=== PATIENT | female | born 1955 | race Caucasian/White ===

== ENCOUNTER 2020-05-01 13:15 | Outpatient (REF) | payer MEDICARE, MEDICAID, SELFPAY ==
[2020-05-01 14:12] LABS: MANUAL DIFF FLAG NO
[2020-05-01 14:23] LABS: Basophils Percent Auto 0.8 % (0-2); Eosinophils Absolute Auto 0.1 X10*3/uL (0.0-0.4); Eosinophils Percent Auto 1.4 % (0-4); Hematocrit 38.9 % (37-47); Hemoglobin 12.1 g/dl (12.0-16.0); Lymphocytes Absolute Auto 2.1 X10*3/uL (1.2-4.9); Lymphocytes Percent Auto 42.5 % (20-40); Mean Corpuscular HGB Conc 31.1 g/dl (31.0-35.0); Mean Corpuscular Hemoglobin 27.6 pg (27.0-33.0); Mean Corpuscular Volume 88.6 fL (80-98); Mean Platelet Volume 11.2 fL (9.4-12.3); Monocytes Absolute Auto 0.4 X10*3/uL (0.1-1.2); Monocytes Percent Auto 8.7 % (2-11); Neutrophils Absolute Auto 2.3 X10*3/uL (2.0-8.3); Neutrophils Percent Auto 46.6 % (45-73); Platelet Count 195 X10*3/uL (160-400); Red Blood Count 4.39 X10*6/uL (4.20-5.50); Red Cell Distribution Width 14.6 % (11.0-16.0); White Blood Count 4.9 X10*3/uL (4.8-10.8)
[2020-05-01 14:43] LABS: Albumin Level 4.8 g/dL (3.5-5.0); Anion Gap 12 (12-20); Blood Urea Nitrogen 13 mg/dL (9-16); Calcium 9.7 mg/dL (8.4-10.2); Carbon Dioxide 26 mmol/L (22-29); Chloride 103 mmol/L (96-108); Cholesterol 217 mg/dL; Estimated Glomerular Filt Rate > 60; HDL Cholesterol 72 mg/dL; Iron 96 mcg/dL (30-160); LDL Cholesterol Calculated 118 mg/dl; Percent Iron Saturation 29 % (15-50); Phosphorus 2.8 mg/dL (2.7-4.5); Potassium 4.2 mmol/l (3.3-5.1); Sodium 137 mmol/L (135-145); Total Iron Binding Capacity 329 mcg/dL (228-428); Triglycerides 139 mg/dL; Unsaturated Iron Binding 233 ug/dL; Uric Acid 4.9 mg/dL (2.4-5.7)
[2020-05-01 14:46] LABS: Glucose Urine UA NEG (NEG); Leukocyte Esterase Urine TRACE (NEG); Nitrite Urine NEG (NEG); Specific Gravity - Urine >= 1.030 (1.005-1.025); Urine Blood NEG (NEG); Urine Ketones NEG (NEG); Urine Protein NEG (NEG-TRACE)
[2020-05-01 14:54] LABS: Appearance Urine CLEAR; Color Urine YELLOW
[2020-05-01 14:54] LABS: Estimated Average Glucose 123 mg/dL; Hemoglobin A1c % 5.9 %
[2020-05-01 15:06] LABS: Ferritin 74 ng/mL (10-250); Vitamin D 25-OH Total 34.6 ng/mL (>30)
[2020-05-01 15:19] LABS: Mucus Urine 1+ /LPF; RBC Urine 0-2 /HPF (0); Renal Epithelial Cells Urine 1+ /LPF; Squamous Epithelial Cell Urine 1+ /LPF
[2020-05-01 15:20] LABS: Renal w Reflex-LAB USE ONLY Order Verified
[2020-05-01 15:34] LABS: Creatinine Urine 95.56 mg/dL; Microalbum/Creatinine Ratio Ur 19.8 ug/mg cr
[2020-05-01 16:25] LABS: Renal w Reflex Lab Use Only Order verified
[2020-05-03 11:26] LABS: Calcium (PTHI) 9.9 mg/dL (8.6-10.4); PTHI 47 pg/mL (14-64)
== END 2020-05-01 13:16 | disposition home or self-care (01) ==
LOC: HO.LAB 13:15
PROVIDERS: PCP Family Medicine; Visit Provider Internal Medicine Nephrology
DX: E11.22 Type 2 diabetes mellitus with diabetic chronic kidney disease (principal); I12.9 Hypertensive chronic kidney disease with stage 1 through stage 4 chronic kidney disease, or unspecified chronic kidney disease; N18.2 Chronic kidney disease, stage 2 (mild); E55.9 Vitamin D deficiency, unspecified; D64.9 Anemia, unspecified
CPT/HCPCS: 36415; 80051; 80061; 81001; 82040; 82043; 82306; 82310; 82565; 82728; 83036; 83540; 83735; 83970; 84100; 84520; 84550; 85025; 87086

== ENCOUNTER → 2020-06-26 12:37 | Outpatient (BNVA) | payer MEDICARE, MEDICAID, SELFPAY | PROVIDERS: PCP Family Medicine; Referring Provider Family Medicine; Visit Provider Student in an Organized Health Care Education/Training Program | DX: M32.9 Systemic lupus erythematosus, unspecified (principal) | CPT/HCPCS: Q3014 ==

== ENCOUNTER 2020-08-30 14:22 | Outpatient (REF) | payer MEDICARE, MEDICAID, SELFPAY ==
--- NOTE | ~2020-08-30 | MM_ITS ---
EXAMINATION: MM SCREENING DIGITAL BREAST TOMOSYNTHESIS, BILATERAL CLINICAL INFORMATION: Screening. Asymptomatic. The lifetime risk of breast cancer based on the Tyrer-Cuzick Model is 6%. COMPARISON: Mammography: 08/08/2019, 08/03/2018, 07/22/2017 TECHNIQUE: Digital breast tomosynthesis is performed in both the craniocaudal and mediolateral oblique views along with computer-aided detection (CAD). Synthesized 2D images are generated from the tomosynthesis. Additional right MLO view is provided. FINDINGS: The breasts are heterogeneously dense, which may obscure small masses (ACR BI-RADS breast composition Category c). Breast tissue composition borders on average fibroglandular. There are no significant masses, abnormal calcifications, or other abnormalities. There are scattered bilateral benign round and vascular calcifications. The axilla and skin contours are unremarkable. MM/MM tomosynthesis screening BI IMPRESSION: No mammographic evidence of malignancy. ASSESSMENT: BI-RADS 2: Benign RECOMMENDATION: Routine annual mammography screening. This patient's information was entered into a reminder system with a target due date for their next mammogram.
== END 2020-08-30 14:23 | disposition home or self-care (01) ==
LOC: HO.MAMMO 14:22
PROVIDERS: PCP Family Medicine; Visit Provider Family Medicine
DX: Z12.31 Encounter for screening mammogram for malignant neoplasm of breast (principal)
CPT/HCPCS: 77063; 77067

== ENCOUNTER 2020-09-17 10:51 | Outpatient (REF) | payer MEDICARE, MEDICAID, SELFPAY ==
[2020-09-17 11:27] LABS: MANUAL DIFF FLAG NO
[2020-09-17 11:37] LABS: Basophils Percent Auto 0.7 % (0-2); Eosinophils Absolute Auto 0.1 X10*3/uL (0.0-0.4); Eosinophils Percent Auto 0.9 % (0-4); Hematocrit 39.4 % (37-47); Hemoglobin 12.4 g/dl (12.0-16.0); Imm Gran Abs Auto 0.01 X10*3/uL (0.00-0.03); Imm Gran Pct Auto 0.2 % (0.0-0.4); Lymphocytes Absolute Auto 2.3 X10*3/uL (1.2-4.9); Lymphocytes Percent Auto 41.5 % (20-40); Mean Corpuscular HGB Conc 31.5 g/dl (31.0-35.0); Mean Corpuscular Volume 88.9 fL (80-98); Monocytes Absolute Auto 0.6 X10*3/uL (0.1-1.2); Monocytes Percent Auto 9.8 % (2-11); Neutrophils Absolute Auto 2.7 X10*3/uL (2.0-8.3); Neutrophils Percent Auto 46.9 % (45-73); Platelet Count 257 X10*3/uL (160-400); Red Blood Count 4.43 X10*6/uL (4.20-5.50); Red Cell Distribution Width 13.8 % (11.0-16.0); White Blood Count 5.6 X10*3/uL (4.8-10.8)
[2020-09-17 11:49] LABS: Glucose Urine UA NEG (NEG); Leukocyte Esterase Urine NEG (NEG); Nitrite Urine NEG (NEG); Specific Gravity - Urine >= 1.030 (1.005-1.025); Urine Blood NEG (NEG); Urine Ketones 5 MG/DL (NEG); Urine Protein TRACE MG/DL (NEG-TRACE)
[2020-09-17 11:57] LABS: Alanine Aminotransferase 10 U/L (0-31); Albumin Level 4.6 g/dL (3.5-5.0); Alkaline Phosphatase 63 U/L (39-117); Anion Gap 13 (12-20); Aspartate Amino Transferase 14 U/L (5-31); Bilirubin Total 0.6 mg/dL (0.0-1.0); Blood Urea Nitrogen 12 mg/dL (9-16); C Reactive Protein 0.43 mg/dL (< or = 0.50); Calcium 9.8 mg/dL (8.4-10.2); Carbon Dioxide 27 mmol/L (22-29); Chloride 104 mmol/L (96-108); Estimated Glomerular Filt Rate 59; Glucose Random 108 mg/dL (60-115); Sodium 140 mmol/L (135-145); Total Protein 7.8 g/dL (6.5-8.0)
[2020-09-17 12:07] LABS: Appearance Urine HAZY; Color Urine YELLOW
[2020-09-17 12:21] LABS: Erythrocyte Sedimentation Rate 25 MM/HR (0-20)
[2020-09-17 12:25] LABS: Bacteria Urine 1+ /LPF; Mucus Urine 1+ /LPF; RBC Urine 0 /HPF (0); Squamous Epithelial Cell Urine 2+ /LPF; WBC Urine 0-2 /HPF (0-4)
[2020-09-18 13:02] LABS: Anti DNA DS Antibody <1 IU/mL
[2020-09-19 11:26] LABS: Complement C3 135 mg/dL (83-193)
== END 2020-09-17 10:52 | disposition home or self-care (01) ==
LOC: HO.LAB 10:51
PROVIDERS: PCP Family Medicine; Visit Provider Student in an Organized Health Care Education/Training Program
DX: M32.9 Systemic lupus erythematosus, unspecified (principal)
CPT/HCPCS: 36415; 80053; 81001; 85025; 85652; 86140; 86160; 86225

== ENCOUNTER → 2020-09-24 12:37 | Outpatient (BNVA) | payer MEDICARE, MEDICAID, SELFPAY | PROVIDERS: PCP Family Medicine; Visit Provider Student in an Organized Health Care Education/Training Program | DX: M32.9 Systemic lupus erythematosus, unspecified (principal) | CPT/HCPCS: 99212 ==

== ENCOUNTER 2020-12-25 13:36 | Outpatient (REF) | payer MEDICARE, MEDICAID, SELFPAY ==
[2020-12-25 14:29] LABS: MANUAL DIFF FLAG NO
[2020-12-25 14:33] LABS: Basophils Percent Auto 0.7 % (0-2); Eosinophils Percent Auto 0.5 % (0-4); Hematocrit 37.8 % (37-47); Hemoglobin 11.7 g/dl (12.0-16.0); Imm Gran Abs Auto 0.01 X10*3/uL (0.00-0.03); Imm Gran Pct Auto 0.2 % (0.0-0.4); Lymphocytes Absolute Auto 1.9 X10*3/uL (1.2-4.9); Lymphocytes Percent Auto 33.1 % (20-40); Mean Corpuscular Hemoglobin 27.8 pg (27.0-33.0); Mean Corpuscular Volume 89.8 fL (80-98); Mean Platelet Volume 10.9 fL (9.4-12.3); Monocytes Absolute Auto 0.6 X10*3/uL (0.1-1.2); Neutrophils Absolute Auto 3.2 X10*3/uL (2.0-8.3); Neutrophils Percent Auto 55.5 % (45-73); Platelet Count 185 X10*3/uL (160-400); Red Blood Count 4.21 X10*6/uL (4.20-5.50); Red Cell Distribution Width 14.9 % (11.0-16.0); White Blood Count 5.7 X10*3/uL (4.8-10.8)
[2020-12-25 14:35] LABS: Glucose Urine UA NEG (NEG); Leukocyte Esterase Urine NEG (NEG); Nitrite Urine NEG (NEG); Specific Gravity - Urine >= 1.030 (1.005-1.025); Urine Blood NEG (NEG); Urine Ketones 5 MG/DL (NEG); Urine Protein 1+ MG/DL (NEG-TRACE)
[2020-12-25 14:38] LABS: Appearance Urine HAZY; Color Urine YELLOW
[2020-12-25 14:48] LABS: Amorphous Sediment Urine TRACE /LPF; Bacteria Urine TRACE /LPF; Mucus Urine 1+ /LPF; RBC Urine 0-2 /HPF (0); Squamous Epithelial Cell Urine TRACE /LPF; WBC Urine 0-2 /HPF (0-4)
[2020-12-25 14:58] LABS: Alanine Aminotransferase 10 U/L (0-31); Albumin Level 4.4 g/dL (3.5-5.0); Alkaline Phosphatase 50 U/L (39-117); Anion Gap 16 (12-20); Aspartate Amino Transferase 19 U/L (5-31); Bilirubin Total 1.1 mg/dL (0.0-1.0); Blood Urea Nitrogen 15 mg/dL (9-16); Calcium 9.9 mg/dL (8.4-10.2); Carbon Dioxide 23 mmol/L (22-29); Chloride 106 mmol/L (96-108); Estimated Glomerular Filt Rate > 60; Glucose Random 97 mg/dL (60-115); Potassium 4.1 mmol/L (3.3-5.1); Sodium 141 mmol/L (135-145); Total Protein 7.4 g/dL (6.5-8.0)
[2020-12-25 15:09] LABS: Total Protein Urine Random 36 mg/dL (<12)
[2020-12-25 15:13] LABS: Erythrocyte Sedimentation Rate 8 MM/HR (0-20)
[2020-12-26 10:26] LABS: Complement C3 86 mg/dL (83-193)
[2020-12-27 10:02] LABS: Anti DNA DS Antibody <1 IU/mL
== END 2020-12-25 13:37 | disposition home or self-care (01) ==
LOC: HO.LAB 13:36
PROVIDERS: PCP Family Medicine; Visit Provider Student in an Organized Health Care Education/Training Program
DX: M32.9 Systemic lupus erythematosus, unspecified (principal)
CPT/HCPCS: 36415; 80053; 81001; 84156; 85025; 85652; 86140; 86160; 86225

== ENCOUNTER → 2021-09-03 15:01 | Outpatient (BNVA) | payer MEDICARE, MEDICAID, SELFPAY | PROVIDERS: PCP Family Medicine; Visit Provider Internal Medicine | DX: Z13.89 Encounter for screening for other disorder (principal) ==

== ENCOUNTER 2021-09-10 14:23 | Outpatient (REF) | payer MEDICARE, MEDICAID, SELFPAY ==
--- NOTE | ~2021-09-10 | MM_ITS ---
EXAMINATION: MM SCREENING DIGITAL BREAST TOMOSYNTHESIS, BILATERAL CLINICAL INFORMATION: Screening. Asymptomatic. The lifetime risk of breast cancer based on the Tyrer-Cuzick Model is 4%. COMPARISON: Mammography: 08/30/2020, 08/08/2019, 08/03/2018 TECHNIQUE: Digital breast tomosynthesis is performed in both the craniocaudal and mediolateral oblique views along with computer-aided detection (CAD). Synthesized 2D images are generated from the tomosynthesis. FINDINGS: The breasts are heterogeneously dense, which may obscure small masses (ACR BI-RADS breast composition Category c). There are no significant masses, abnormal calcifications, or other abnormalities. Parenchymal pattern is similar to prior studies. MM/MM tomosynthesis screening BI IMPRESSION: No mammographic evidence of malignancy. ASSESSMENT: BI-RADS 1: Negative RECOMMENDATION: Routine annual mammography screening. This patient's information was entered into a reminder system with a target due date for their next mammogram.
== END 2021-09-10 14:24 | disposition home or self-care (01) ==
LOC: HO.MAMMO 14:23
PROVIDERS: Visit Provider Family Medicine
DX: Z12.31 Encounter for screening mammogram for malignant neoplasm of breast (principal)
CPT/HCPCS: 77063; 77067

== ENCOUNTER 2022-03-20 06:56 | Day surgery (SDC) | payer MEDICARE, MEDICAID, SELFPAY ==
[2022-03-16 13:58] VITALS: BMI 24.1
--- NOTE | 2022-03-19 14:06 | HO.ANESPROP2 ---
Documented by User: Sandra Barrett NP 03/19/22 14:07 HPI - Anesthesia Eval Consult details Narrative: 66yo F for Colonoscopy PMFSH Active Problems Active Problems: All Active Problems (Updated 03/16/22 @ 13:56 by Kathryn Best RN) Lupus (systemic lupus erythematosus) (Acute) Past Medical History Medical History Anal cancer Asthma Colon polyps Diverticulosis HTN (hypertension) IBS (irritable bowel syndrome) Lupus (systemic lupus erythematosus) Osteoporosis Raynauds disease Vitamin D deficiency Family History Family History Mother HTN (hypertension) Osteoporosis Surgical History Surgical History H/O abdominoplasty History of appendectomy History of dilatation and curettage Hx of hysterectomy Social History Social History Alcohol intake: current Alcohol intake frequency: former alcohol drinker Patient Tobacco Use Status: Never used Tobacco Use of substances other than those prescribed or required for medical reasons: No Are you DNR?: No Advance Directives: No Advance Directives Information Provided: Yes Meds Allergies Allergy/AdvReac Type Severity Reaction Status Date / Time aspirin [ASPIRIN] Allergy Severe GI BLEED, Verified 09/03/21 15:09 severe bleeding NSAIDS (Non-Steroidal Allergy Severe GI BLEED Verified 09/03/21 15:09 Anti-Inflamma [NSAIDS (NON-STEROIDAL ANTI-INFLAMMA] simvastatin [Simvastatin] Allergy Severe SEVERE Verified 09/03/21 15:09 DIARRHEA/RECTAL BLEED/MUSCLE PAIN, upset stomach and pain lisinopril [Lisinopril] AdvReac Mild COUGH, Verified 03/16/22 13:59 throat scratching metoprolol [From Toprol XL] AdvReac Mild COUGHING Verified 09/03/21 15:09 any blood thinners Allergy Severe severe Uncoded 03/16/22 13:59 bleeding Home Medications Medication Instructions Recorded Confirmed Last Taken Type acetaminophen 325 mg capsule 650 mg PO Q6H PRN Pain 06/26/20 03/16/22 Unknown History (Tylenol) albuterol sulfate 90 mcg/actuation 2 puff inhalation Q6H PRN Wheezing 06/26/20 03/16/22 Unknown History aerosol inhaler alendronate 70 mg tablet (Fosamax) 70 mg PO QWEEK 06/26/20 03/16/22 Unknown History amlodipine 2.5 mg tablet (Norvasc) 2.5 mg PO DAILY 06/26/20 03/16/22 03/20/22 History docusate sodium 100 mg capsule 100 mg PO DAILY 06/26/20 03/16/22 Unknown History (Colace) losartan 25 mg tablet 25 mg PO DAILY 06/26/20 03/16/22 03/20/22 History omeprazole 20 mg capsule,delayed 20 mg PO DAILY 06/26/20 03/16/22 Unknown History release oxycodone-acetaminophen 5 mg-325 1 tab PO Q8H PRN Pain 06/26/20 03/16/22 Unknown History mg tablet (Percocet) pravastatin 20 mg tablet 20 mg PO DAILY 06/26/20 03/16/22 Unknown History trazodone 100 mg tablet 100 mg PO BEDTIME PRN Insomnia 06/26/20 03/16/22 Unknown History Exam Exam Date and Time: March 19, 2022 1406 Height,Weight and Vital Signs: Height 5 ft 1 in Weight 58.06 kg Assessment and Plan Assessment Anesthesia Assessment: Chart Reviewed Documented by User: Nikita Duong MD 03/20/22 08:03 [facility] Past Medical History Medical History Anal cancer Asthma Colon polyps Diverticulosis HTN (hypertension) IBS (irritable bowel syndrome) Lupus (systemic lupus erythematosus) Osteoporosis Raynauds disease Vitamin D deficiency Family History Family History Mother HTN (hypertension) Osteoporosis Family history of problems with anesthesia: No Surgical History Surgical History H/O abdominoplasty History of appendectomy History of dilatation and curettage Hx of hysterectomy History of Problems with Anesthesia: No Social History Social History Alcohol intake: current Alcohol intake frequency: former alcohol drinker Patient Tobacco Use Status: Never used Tobacco Use of substances other than those prescribed or required for medical reasons: No Are you DNR?: No Advance Directives: No Advance Directives Information Provided: Yes Meds Allergies Allergy/AdvReac Type Severity Reaction Status Date / Time aspirin [ASPIRIN] Allergy Severe GI BLEED, Verified 09/03/21 15:09 severe bleeding NSAIDS (Non-Steroidal Allergy Severe GI BLEED Verified 09/03/21 15:09 Anti-Inflamma [NSAIDS (NON-STEROIDAL ANTI-INFLAMMA] simvastatin [Simvastatin] Allergy Severe SEVERE Verified 09/03/21 15:09 DIARRHEA/RECTAL BLEED/MUSCLE PAIN, upset stomach and pain lisinopril [Lisinopril] AdvReac Mild COUGH, Verified 03/16/22 13:59 throat scratching metoprolol [From Toprol XL] AdvReac Mild COUGHING Verified 09/03/21 15:09 any blood thinners Allergy Severe severe Uncoded 03/16/22 13:59 bleeding Home Medications Medication Instructions Recorded Confirmed Last Taken Type acetaminophen 325 mg capsule 650 mg PO Q6H PRN Pain 06/26/20 03/16/22 Unknown History (Tylenol) albuterol sulfate 90 mcg/actuation 2 puff inhalation Q6H PRN Wheezing 06/26/20 03/16/22 Unknown History aerosol inhaler alendronate 70 mg tablet (Fosamax) 70 mg PO QWEEK 06/26/20 03/16/22 Unknown History amlodipine 2.5 mg tablet (Norvasc) 2.5 mg PO DAILY 06/26/20 03/16/22 03/20/22 History docusate sodium 100 mg capsule 100 mg PO DAILY 06/26/20 03/16/22 Unknown History (Colace) losartan 25 mg tablet 25 mg PO DAILY 06/26/20 03/16/22 03/20/22 History omeprazole 20 mg capsule,delayed 20 mg PO DAILY 06/26/20 03/16/22 Unknown History release oxycodone-acetaminophen 5 mg-325 1 tab PO Q8H PRN Pain 06/26/20 03/16/22 Unknown History mg tablet (Percocet) pravastatin 20 mg tablet 20 mg PO DAILY 06/26/20 03/16/22 Unknown History trazodone 100 mg tablet 100 mg PO BEDTIME PRN Insomnia 06/26/20 03/16/22 Unknown History Exam Airway Mallampati Class: II TM Dist: >3cm Neck ROM: Full Loose/Missing/Broken Teeth: Yes (upper front teeth chipped) Heart: rrr+[id number] Lungs: cta b/l Assessment and Plan Assessment Anesthesia Assessment: Anesthesia Plan Discussed Final Anesthetic Review Family History of Problems with Anesthesia: No History of Problems with Anesthesia: No NPO: Yes ASA Class: III Final Preanesthetic Review: No Changes in Pt Med Stat, Meds/Allgs Chart Reviewed, Consent Obtained/Reviewed and Anes Risks/Benef Reviewed Patient Risk: Intermediate Procedure Risk: Intermediate Assessment/Block/Sedation in SS: Assess/Block/Sedation-SS Anesthetic Plan Anesthetic Plan: MAC: and Agree w/ Assess. and Plan Disposition: Standard PACU
[2022-03-20 07:22] VITALS: BMI 25.4
[2022-03-20 07:43] VITALS: BP 100/69; PULSE 85; RESP 16; TEMP 36.3; O2SAT 97
[2022-03-20] MEDS: Lactated Ringers 1,000 ML 100 ML IVCONT (07:55)
--- NOTE | 2022-03-20 08:12 | MHC.SHP ---
Pre-Procedural Eval Section A Date of Service: 03/20/22 Section B Chief Complaint: screening Details of Present Illness: see H*P no changes Relevant Family History (Specify if Yes): No Relevant Social History: None Present Medications: see Short Stay Collaborative assessment Medical History: No relevant PMH History of Previous Operations: No relevant previous surgery Allergies: Allergies Allergy/AdvReac Type Severity Reaction Status Date / Time aspirin [ASPIRIN] Allergy Severe GI BLEED, Verified 09/03/21 15:09 severe bleeding NSAIDS (Non-Steroidal Allergy Severe GI BLEED Verified 09/03/21 15:09 Anti-Inflamma [NSAIDS (NON-STEROIDAL ANTI-INFLAMMA] simvastatin [Simvastatin] Allergy Severe SEVERE Verified 09/03/21 15:09 DIARRHEA/RECTAL BLEED/MUSCLE PAIN, upset stomach and pain lisinopril [Lisinopril] AdvReac Mild COUGH, Verified 03/16/22 13:59 throat scratching metoprolol [From Toprol XL] AdvReac Mild COUGHING Verified 09/03/21 15:09 any blood thinners Allergy Severe severe Uncoded 03/16/22 13:59 bleeding Review of Systems Sugical H&P ROS: Negative: Constitution, Cardiovascular, Respiratory, Neurological, Psychiatric, Hem-Onc, Allergic/Immunologic, Gastrointestinal, Genitourinary, Musculoskeletal, Integumentary, Endocrine and Eyes/Ears/Nose/Throat Exam Surgical H&P Exam: Normal: HEENT, Normal: Heart, Normal: Lungs, Normal: Extremities, Normal: Abdomen, Normal: Skin and Normal: Neurological Plan Diagnosis/Plan: Unchanged I have reviewed the history and physical and performed a pertinent physical examination on my patient. No changes have occurred unless specified.
[2022-03-20 09:03] VITALS: BP 93/57; PULSE 75; RESP 18; TEMP 36.6; O2SAT 96
--- NOTE | 2022-03-20 09:04 | PM.OP ---
Brief Operative Note Date of Service: 03/20/22 Pre-op diagnosis: screening Post-op diagnosis: same Procedure: colonoscopy Surgeon: Vasyl Boles Anesthesia: MAC Was an Finishing Manager used for this Procedure?: No Estimated blood loss (mL): 2 Pathology: other Condition: stable Disposition: PACU
[2022-03-20 09:18] VITALS: BP 107/75; PULSE 76; RESP 18; TEMP 36.6; O2SAT 97
--- NOTE | 2022-03-20 22:50 | OP_ITS ---
SURGEON: Vasyl Boles MD INDICATIONS: Colon cancer screening. PREOPERATIVE DIAGNOSIS: POSTOPERATIVE DIAGNOSIS: PROCEDURE PERFORMED: Colonoscopy to the terminal ileum with biopsy and snare polypectomy. ESTIMATED BLOOD LOSS: COMPLICATIONS: ANESTHESIA: Monitored anesthesia care. ASSISTANTS: SPECIMENS: DESCRIPTION OF PROCEDURE: DATE: 03/20/22 History and physical was performed. The risks and benefits of the procedure were explained to the patient. Informed consent was obtained. The patient was placed in left lateral decubitus position. The digital rectal exam was performed and was found to be normal. The Olympus pediatric video colonoscope was introduced into the rectum and advanced to the cecum without difficulty. The cecum was identified by transillumination, palpation, and identification of ileocecal valve. Examination was performed. The scope was removed. She tolerated the procedure well and was taken to recovery area in stable condition. FINDINGS: The terminal ileum was normal. The visualized colonic mucosa was normal. Quality of the prep was good. Multiple polyps were removed with a combination of biopsy forceps and cold snare. These were located in the cecum 80 cm x2, 55 cm, 25 cm, and a rectal polyps x2. All were less than 10 mm. There were radiation changes on the perianal and perineal areas from her previous radiation therapy for anal cancer. The rectum was somewhat slack because of this. No lesions were identified that suggest a recurrence of squamous cell carcinoma of the perineum. Retroflexed examination was not possible due to narrowing in the rectum from prior radiation. IMPRESSION: 1. Colon polyps. 2. 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 RECOMMENDATION: 1. Follow up the biopsy results. MD KYLAH Morales/RAJIV / [id number] MTDD
== END 2022-03-20 09:36 | disposition home or self-care (01) ==
PROVIDERS: PCP Family Medicine; Visit Provider Internal Medicine Gastroenterology
PROC: 0DJD8ZZ Inspection of Lower Intestinal Tract, Via Natural or Artificial Opening Endoscopic (ICD-10-PCS; CPT 45378; principal; 2022-03-20 08:10)
DX: Z12.11 Encounter for screening for malignant neoplasm of colon (principal); Z85.048 Personal history of other malignant neoplasm of rectum, rectosigmoid junction, and anus; K62.7 Radiation proctitis; Z92.3 Personal history of irradiation; Z92.21 Personal history of antineoplastic chemotherapy; D12.0 Benign neoplasm of cecum; D12.4 Benign neoplasm of descending colon; D12.5 Benign neoplasm of sigmoid colon; D12.8 Benign neoplasm of rectum; K21.9 Gastro-esophageal reflux disease without esophagitis; I10 Essential (primary) hypertension; J45.20 Mild intermittent asthma, uncomplicated; M81.0 Age-related osteoporosis without current pathological fracture; M32.9 Systemic lupus erythematosus, unspecified; I73.00 Raynaud's syndrome without gangrene; Z79.899 Other long term (current) drug therapy; Z88.8 Allergy status to other drugs, medicaments and biological substances
CPT/HCPCS: 45385; 45380; 88305

== ENCOUNTER 2022-04-29 10:58 | Outpatient (REF) | payer MEDICARE, MEDICAID, SELFPAY ==
[2022-04-29 12:38] LABS: Cortisol Random 9.1 ug/dL
[2022-05-04 17:41] LABS: Adrenocorticotropic Hormone 14 pg/mL (6-50)
== END 2022-04-29 10:59 | disposition home or self-care (01) ==
LOC: HO.LAB 10:58
PROVIDERS: PCP Family Medicine; Visit Provider Physical Medicine & Rehabilitation
DX: M54.16 Radiculopathy, lumbar region (principal)
CPT/HCPCS: 36415; 82024; 82533

== ENCOUNTER 2022-09-16 13:57 | Outpatient (REF) | payer MEDICARE, MEDICAID, SELFPAY ==
--- NOTE | ~2022-09-16 | MM_ITS ---
EXAMINATION: MM SCREENING DIGITAL BREAST TOMOSYNTHESIS, BILATERAL CLINICAL INFORMATION: Screening. Asymptomatic. The lifetime risk of breast cancer based on the Tyrer-Cuzick Model is 6.7%. COMPARISON: Mammography: September 10, 2021 and studies dating back to June 09, 2016 TECHNIQUE: Digital breast tomosynthesis is performed in both the craniocaudal and mediolateral oblique views along with computer-aided detection (CAD). Synthesized 2D images are generated from the tomosynthesis. FINDINGS: The breasts are heterogeneously dense, which may obscure small masses (ACR BI-RADS breast composition Category c). There are no significant masses, abnormal calcifications, or other abnormalities. MM/MM tomosynthesis screening BI IMPRESSION: No significant changes ASSESSMENT: BI-RADS 1: Negative RECOMMENDATION: Routine annual mammography screening. This patient's information was entered into a reminder system with a target due date for their next mammogram.
== END 2022-09-16 13:58 | disposition home or self-care (01) ==
LOC: HO.MAMMO 13:57
PROVIDERS: PCP Family Medicine; Visit Provider Family Medicine
DX: Z12.31 Encounter for screening mammogram for malignant neoplasm of breast (principal)
CPT/HCPCS: 77063; 77067

== ENCOUNTER 2023-05-12 11:50 | Outpatient (REF) | payer MEDICARE, MEDICAID, SELFPAY ==
[2023-05-12 13:24] LABS: MANUAL DIFF FLAG NO
[2023-05-12 13:39] LABS: Basophils Absolute Auto 0.1 X10*3/uL (0.0-0.2); Basophils Percent Auto 0.9 % (0-2); Eosinophils Absolute Auto 0.1 X10*3/uL (0.0-0.4); Eosinophils Percent Auto 0.7 % (0-4); Hematocrit 39.4 % (37.0-47.0); Hemoglobin 12.2 g/dl (12.0-16.0); Imm Gran Abs Auto 0.02 X10*3/uL (0.00-0.03); Imm Gran Pct Auto 0.3 % (0.0-0.4); Lymphocytes Absolute Auto 2.4 X10*3/uL (1.2-4.9); Lymphocytes Percent Auto 33.6 % (20-40); Mean Corpuscular Hemoglobin 27.1 pg (27.0-33.0); Mean Corpuscular Volume 87.6 fL (80.0-98.0); Mean Platelet Volume 11.3 fL (9.4-12.3); Monocytes Absolute Auto 0.7 X10*3/uL (0.1-1.2); Monocytes Percent Auto 9.4 % (2-11); Neutrophils Absolute Auto 3.9 x10*3/uL (2.0-8.3); Neutrophils Percent Auto 55.1 % (45-73); Platelet Count 214 X10*3/uL (160-400); Red Cell Distribution Width 14.1 % (11.0-16.0)
[2023-05-12 14:10] LABS: Alanine Aminotransferase 8 U/L (0-31); Albumin Level 4.4 g/dL (3.5-5.0); Alkaline Phosphatase 50 U/L (39-117); Anion Gap 13 (12-20); Aspartate Amino Transferase 14 U/L (5-31); Bilirubin Direct 0.3 mg/dL (0.0-0.5); Bilirubin Total 0.9 mg/dL (0.0-1.0); Blood Urea Nitrogen 9 mg/dL (9-16); Calcium 9.9 mg/dL (8.4-10.2); Carbon Dioxide 26 mmol/L (22-29); Chloride 103 mmol/L (96-108); Estimated Glomerular Filt Rate > 60; Glucose Random 93 mg/dL (60-115); Potassium 3.9 mmol/L (3.3-5.1); Sodium 138 mmol/L (135-145); Total Protein 7.8 g/dL (6.5-8.0)
[2023-05-12 14:17] LABS: Microalbum/Creatinine Ratio Ur 28.4 ug/mg cr (<30)
[2023-05-13 19:08] LABS: Hepatitis B Viral DNA Qn - cp 1.59 Log IU/mL (NOT DETECTED); Hepatitis B Viral DNA Qn-IU/mL 39 IU/mL (NOT DETECTED)
== END 2023-05-12 11:51 | disposition home or self-care (01) ==
LOC: HO.HHCL 11:50
PROVIDERS: Visit Provider Family Medicine
DX: B18.1 Chronic viral hepatitis B without delta-agent (principal)
CPT/HCPCS: 36415; 80048; 80076; 82043; 82570; 85025; 87517

== ENCOUNTER 2023-08-24 16:07 | Outpatient (REF) | payer MEDICARE, MEDICAID, SELFPAY ==
[2023-08-30 09:00] LABS: Alphahydroxymidazolam,GCMS Ur NEGATIVE; Alphahydroxytriazolam, GCMS Ur NEGATIVE; Alprazolam, GCMS Urine NEGATIVE; Aminoclonazepam, GCMS Urine NEGATIVE; Flurazepam Metabolite,GCMS Ur NEGATIVE; Lorazepam GCMS Urine NEGATIVE; Nordiazepam, GCMS Urine NEGATIVE; Oxazepam, GCMS Urine NEGATIVE; Temazepam, GCMS Urine NEGATIVE
[2023-08-30 09:01] LABS: Fentanyl, Ur NEGATIVE; Norfentanyl, Ur NEGATIVE
== END 2023-08-24 16:08 | disposition home or self-care (01) ==
LOC: HO.HHCLNP 16:07
PROVIDERS: Visit Provider Registered Nurse
DX: M54.50 Low back pain, unspecified (principal); G89.29 Other chronic pain
CPT/HCPCS: 80346; 80354

== ENCOUNTER 2023-09-22 12:56 | Outpatient (REF) | payer MEDICARE, MEDICAID, SELFPAY | END 2023-09-22 12:57 | disposition home or self-care (01) | LOC: HO.MAMMO 12:56 | PROVIDERS: PCP Family Medicine; Visit Provider Family Medicine | DX: Z12.31 Encounter for screening mammogram for malignant neoplasm of breast (principal) | CPT/HCPCS: 77063; 77067 ==

== ENCOUNTER → 2023-09-22 15:00 | Outpatient (BNV) | payer MEDICARE, MEDICAID, SELFPAY | PROVIDERS: PCP Family Medicine; Visit Provider Radiology Diagnostic Radiology | DX: Z12.31 Encounter for screening mammogram for malignant neoplasm of breast (principal) | CPT/HCPCS: 77063; 77067 ==

== ENCOUNTER 2024-01-04 13:15 | Outpatient (REF) | payer MEDICARE, MEDICAID, SELFPAY ==
[2024-01-07 08:48] LABS: Fentanyl, Ur NEGATIVE; Norfentanyl, Ur NEGATIVE
[2024-01-07 08:49] LABS: Alphahydroxymidazolam,GCMS Ur NEGATIVE; Alphahydroxytriazolam, GCMS Ur NEGATIVE; Alprazolam, GCMS Urine NEGATIVE; Aminoclonazepam, GCMS Urine NEGATIVE; Flurazepam Metabolite,GCMS Ur NEGATIVE; Lorazepam GCMS Urine NEGATIVE; Nordiazepam, GCMS Urine NEGATIVE; Oxazepam, GCMS Urine NEGATIVE; Temazepam, GCMS Urine NEGATIVE
== END 2024-01-04 13:16 | disposition home or self-care (01) ==
LOC: HO.HHCLNP 13:15
PROVIDERS: Visit Provider Registered Nurse
DX: M54.50 Low back pain, unspecified (principal); G89.29 Other chronic pain
CPT/HCPCS: 80346; 80354

== ENCOUNTER 2024-04-14 13:00 | Outpatient (RCR) | payer MEDICARE, MEDICAID, SELFPAY ==
[2024-03-10 13:00] VITALS: BP 117/63; PULSE 82
[2024-04-07 10:27] LABS: Fentanyl, Ur NEGATIVE; Norfentanyl, Ur NEGATIVE
== END 2024-04-17 10:33 | disposition home or self-care (01) ==
LOC: HO.PT 13:00
PROVIDERS: Registered Nurse; PCP Family Medicine; Visit Provider Physical Medicine & Rehabilitation
DX: M48.07 Spinal stenosis, lumbosacral region (principal)
CPT/HCPCS: 80354; 97110; 97112; 97161

== ENCOUNTER 2024-04-26 09:24 | Outpatient (REF) | payer MEDICARE, MEDICAID, SELFPAY ==
[2024-04-26 10:03] LABS: MANUAL DIFF FLAG NO
[2024-04-26 10:39] LABS: Basophils Absolute Auto 0.1 X10*3/uL (0.0-0.2); Basophils Percent Auto 0.9 % (0-2); Eosinophils Absolute Auto 0.1 X10*3/uL (0.0-0.4); Hematocrit 37.5 % (37.0-47.0); Hemoglobin 11.8 g/dl (12.0-16.0); Imm Gran Abs Auto 0.01 X10*3/uL (0.00-0.03); Imm Gran Pct Auto 0.2 % (0.0-0.4); Lymphocytes Absolute Auto 1.8 X10*3/uL (1.2-4.9); Lymphocytes Percent Auto 32.2 % (20-40); Mean Corpuscular HGB Conc 31.5 g/dl (31.0-35.0); Mean Corpuscular Hemoglobin 26.8 pg (27.0-33.0); Mean Corpuscular Volume 85.2 fL (80.0-98.0); Mean Platelet Volume 11.4 fL (9.4-12.3); Monocytes Absolute Auto 0.5 X10*3/uL (0.1-1.2); Monocytes Percent Auto 8.8 % (2-11); Neutrophils Absolute Auto 3.1 x10*3/uL (2.0-8.3); Neutrophils Percent Auto 55.9 % (45-73); Platelet Count 217 X10*3/uL (160-400); Red Cell Distribution Width 14.2 % (11.0-16.0); White Blood Count 5.5 X10*3/uL (4.8-10.8)
[2024-04-26 11:47] LABS: Alanine Aminotransferase 8 U/L (0-31); Albumin Level 4.4 g/dL (3.5-5.0); Alkaline Phosphatase 59 U/L (39-117); Anion Gap 14 (12-20); Aspartate Amino Transferase 20 U/L (5-31); Bilirubin Direct 0.3 mg/dL (0.0-0.5); Bilirubin Total 0.8 mg/dL (0.0-1.0); Blood Urea Nitrogen 12 mg/dL (9-16); Calcium 9.5 mg/dL (8.4-10.2); Carbon Dioxide 26 mmol/L (22-29); Chloride 106 mmol/L (96-108); Cholesterol 173 mg/dL (<200); Estimated Glomerular Filt Rate 60; Glucose Random 101 mg/dL (60-115); HDL Cholesterol 66 mg/dL (>40); LDL Cholesterol Calculated 84 mg/dL (<100); Potassium 3.7 mmol/L (3.3-5.1); Sodium 142 mmol/L (135-145); Total Protein 7.5 g/dL (6.5-8.0); Triglycerides 118 mg/dL (<150)
[2024-04-26 11:52] LABS: TSH reflex Free T4 1.72 uIU/mL (0.32-4.0); Vitamin D 25-OH Total 35.8 ng/mL (>30)
[2024-04-27 14:09] LABS: Hepatitis B Viral DNA Qn - cp 1.97 Log IU/mL (NOT DETECTED); Hepatitis B Viral DNA Qn-IU/mL 93 IU/mL (NOT DETECTED)
[2024-04-28 12:48] LABS: Alpha Fetoprotein 6.3 ng/mL
== END 2024-04-26 09:25 | disposition home or self-care (01) ==
LOC: HO.LAB 09:24
PROVIDERS: PCP Family Medicine; Visit Provider Family Medicine
DX: I10 Essential (primary) hypertension (principal); E03.9 Hypothyroidism, unspecified; B18.1 Chronic viral hepatitis B without delta-agent; E55.9 Vitamin D deficiency, unspecified; E78.5 Hyperlipidemia, unspecified
CPT/HCPCS: 36415; 80048; 80061; 80076; 82105; 82306; 84443; 85025; 87517

== ENCOUNTER 2024-07-11 11:30 | Outpatient (REF) | payer MEDICARE, MEDICAID, SELFPAY ==
--- OUTSIDE RECORDS SUMMARY | 2024-07-11 16:36 | XMS_ITS | Encounter Summary ---
Author Organization [facility] Address [address] [place] [address] 7 [place] [address] Care Team Providers Care Hair Weaver Name Role Phone Bharati Soriano MD Primary Care Provider [phone] Vasyl Boles MD Unavailable Encounter Details Date Type Department Care Team (Latest Contact Info) Description 06/29/2018 Abstract [facility] CONVERSIONS Dental, Provider, DDS Social History Tobacco Use Types Packs/Day Years Used Date Smoking Tobacco: Never Assessed Comments Unknown Sex and Gender Information Value Date Recorded Sex Assigned at Female 04/13/2022 10:14 AM EDT Legal Sex Female 10:14 AM EDT Gender Identity Female 04/13/2022 10:14 AM EDT Sexual Orientation Straight 04/13/2022 10 :14 AM EDT documented as of this encounter Plan of Treatment Upcoming Encounters Date Type Department Care Team (Late st Contact Info) Description 07/12/2024 2:45 PM EST Office Visit [facility] [address] [place] [phone] Bharati Soriano MD [address] [place] [address] 09/07/2024 1:00 PM EDT Office Visit [facility] ADULT DENTAL [address] [place] [address] Elo Mahoney [address] [place] [address] 09/19/2024 11:00 AM EDT Office Visit [facility] [address] [place] [phone] documented as of this encounter Visit Diagnoses Not on filedocumented in this encounter Care Teams Hair Weaver Relationship Specialty Start Date End Date Bharati Soriano MD [address] [place] [address] [place] [address] PCP - General Family Medicine 06/14/18 Vasyl Boles MD [address] [place] [address] [address] [place] [phone] Gastroenterology 06/20/24 documented as of this encounter
--- OUTSIDE RECORDS SUMMARY | 2024-07-11 16:36 | XMS_ITS | Encounter Summary ---
Author Organization [employer] Address [address] [facility] 7t [place] [address] Care Team Providers Care Ferry Operator Name Role Phone Bharati Soriano MD Primary Care Provider [phone]- [phone] Vasyl Boles MD Unavailable [phone] Reason for Visit * Reason Onset Date Comments Med Refill 07/04/2024 Encounter Details Date Type Department Care Team (Late st Contact Info) Description 07/04/2024 Refill [facility] [address] [place], [place] [phone] Bharati Soriano MD [address] [place], [place] [phone] Pain Social History Tobacco Use Types Packs/Day Years Used Date Smoking Tobacco: Never Passive Smoke Exposure: Never Smokeless Tobacco: Never Depression Answer Date Recorded Patient Health Questionnaire-9 Score 1 01/14/2024 Patient Health Questionnaire-9 Score 1 01/14/2024 Last PHQ-9: Questionnaire Data Not on file 0 01/14/2024 Housing Stability Answer Date Recorded What is your housing situation today? I have anita jaclyn 12/22/[address] you li ve. Do you have problems with any of the following? None of the above 12/22/2023 Food Insecurity Answer Date Recorded Within the past 12 months, y ou worried that your food would run out before you got money to buy more: Never True 12/22/2023 Within the past 12 months,th e food you bought just didn't last and you didn't have enough money to get more: Never True 03/2024 Transportation Answer Date Recorded In the past 12 months, has l ack of transportation kept you from medical appts, meetings, work or from getting things needed for daily living? No 12/22/2023 Utilities Answer Date Recorded In the past 12 months, has t he electric, gas, oil or water company threatened to shut off services in your home? No 12/22/2023 Depression Answer Date Recorded Patient Health Questionnaire-2 Score 1 01/14/2024 Internet Access Answer Date Recorded Internet Access Q1 Yes 06/30/2024 Internet Access Q2 I do not want or need it 06/14 Comments Unknown Sex and Gender Information Value Date Recorded Sex Assigned at Female 04/13/2022 10:14 AM EDT Legal Sex Female 10:14 AM EDT Gender Identity Female 04/13/2022 10:14 AM EDT Sexual Orientation Straight 04/13/2022 10 :14 AM EDT documented as of this encounter Miscellaneous Notes * Telephone Encounter - Hetal Diaz RN - 07/04/2024 2:35 PM EST HEALTHCARE PROF checked. Pt last picked up 21 day supply of percocet 06/02/24. Soonest fill date 06/23/24. Has appt with PM provider in [facility] 07/11/24. Refill appropriate. Queued. * Telephone Encounter - Kelechi Loyd - 07/04/2024 8:43 AM EST TC from pt requesting medication refill. Medications needing refill: oxyCODONE-acetaminophen (Percocet) 5-325 MG tablet To be sent to: [facility]/pharmacy [address] [place] [address] documented in this encounter Plan of Treatment Upcoming Encounters Date Type Department Care Team (Late st Contact Info) Description 07/12/2024 2:45 PM EST Office Visit [facility] [address] [place] [address] Bharati Soriano MD [address] [place], [place] [phone] 09/07/2024 1:00 PM EDT Office Visit [facility] [address] [place] [address] Al Mahoneyaris [address] [place] [address] 09/19/2024 11:00 AM EDT Office Visit [facility] [address] [place] [address] documented as of this encounter Visit Diagnoses Diagnosis Pain Generalized pain Other forms of systemic lupus erythematosus, unspecified organ involvement status (CMS/HCC) Chronic type B viral hepatitis (CMS/HCC) Viral hepatitis B without mention of hepatic coma, chronic, without mention of hepatitis delta Dietary counseling Dietary surveillance and counseling Exercise counseling documented in this encounter Additional Health Concerns Assessment Noted Time PHQ-9 Depression Total Score: 1 01/14/20 24 10:00 AM EDT documented as of this encounter Care Teams Ferry Operator Relationship Specialty Start Date End Date Bharati Soriano MD [address] [place] [address] PCP - General Family Medicine 06/14/18 Vasyl Boles MD [address] [place] [address] DR KENT [address] [place] [phone] Gastroenterology 06/20/24 documented as of this encounter
--- OUTSIDE RECORDS SUMMARY | 2024-07-11 16:36 | XMS_ITS | Encounter Summary ---
Author Organization [employer] Address [address] [facility] 7t [place] [address] Care Team Providers Care Tableau Architect Name Role Phone Bharati Soriano MD Primary Care Provider [phone]- [phone] Vasyl Boles MD Unavailable [phone] Encounter Details Date Type Department Care Team ([facility] st Contact Info) Description 07/11/2024 Telephone [facility] [address] [place] [address] Jocelyn Randall, JÚNIOR [address] [place] [address] Social History Tobacco Use Types Packs/Day Years Used Date Smoking Tobacco: Never Passive Smoke Exposure: Never Smokeless Tobacco: Never Depression Answer Date Recorded Patient Health Questionnaire-9 Score 1 01/14/2024 Patient Health Questionnaire-9 Score 1 01/14/2024 Last PHQ-9: Questionnaire Data Not on file 0 01/14/2024 Housing Stability Answer Date Recorded What is your housing situation today? I have anita anaya 12/22/[address] you li [...] encounter Miscellaneous Notes * Telephone Encounter - Jocelyn Randall RN - 07/11/2024 1:34 PM EST FYI. Pt came to [facility] today. Percocet 5-325mg Q6hr PRN pill count was 58, anticipated 64 to be remaining. Count NOT as expected. Pt stated she has been taking medication 3-4-5/ times a day depending on her pain. Reminded to take med only as prescribed, pt verbalized understanding. Also utox Positive for BUP, BZO. Pt denies any BUP/ BZO use. Sending out urine to the lab for BUP, BZO confirmation. F/u with you 07/12/24. documented in this encounter Plan of Treatment Upcoming Encounters Date Type Department Care Team (Late st Contact Info) Description 07/12/2024 2:45 PM EST Office Visit [facility] [address] [place] [address] Bharati Soriano MD [address] [place] [address] 09/07/2024 1:00 PM EDT Office Visit [facility] [address] [place] [address] Elo Mahoney [address] [place] [address] 09/19/2024 11:00 AM EDT Office Visit [facility] [address] [place] [address] documented as of this encounter Visit Diagnoses Not on filedocumented in this encounter Additional Health Concerns Assessment Noted Time PHQ-9 Depression Total Score: 1 01/14/20 24 10:00 AM EDT documented as of this encounter Care Teams Tableau Architect Relationship Specialty Start Date End Date Bharati Soriano MD [address] [place] [address] PCP - General Family Medicine 06/14/18 Vasyl Boles MD [address] [place] [address] [place] [phone] Gastroenterology 06/20/24 documented as of this encounter
--- OUTSIDE RECORDS SUMMARY | 2024-07-11 16:36 | XMS_ITS | Encounter Summary ---
Author Organization [employer] Address 75 [facility] 7t [place] [address] Care Team Providers Care Intake Worker Name Role Phone Bharati Soriano MD Primary Care Provider +1- [phone] Reason for Visit * Reason Comments Med Refill Encounter Details Date Type Department Care Team (Late st Contact Info) Description 06/15/2024 Refill [facility] MEDICINE [address] [place] [address] Rosi Vergara MD [address] [place], [place] [phone] Chronic diarrhea Social History Tobacco Use Types Packs/Day Years [...] Access Answer Date Recorded Internet Access Q1 No 02/14/2024 Internet Access Q2 I do not want or need it 07/2023 Comments Unknown Sex and Gender Information Value Date Recorded Sex Assigned at Female 04/13/2022 10:14 AM EDT Legal Sex Female 10:14 AM EDT Gender Identity Female 04/13/2022 10:14 AM EDT Sexual Orientation Straight 04/13/2022 10 :14 AM EDT documented as of this encounter Miscellaneous Notes * Telephone Encounter - Katie Gonzalez RN - 06/19/2024 1:37 PM EST Pt was sent refill for immodium for chronic diarrhea on 06/17/23 after calling in. Pt to call clinic PRN. * Telephone Encounter - Elo Mcpherson - 06/16/2024 11:00 AM EST Tc from pt requesting to speak to nurse regarding medication denied loperamide (Imodium) 2 MG capsule . Pt stated she does take it as needed. Contact pt at [phone] documented in this encounter Plan of Treatment Upcoming Encounters Date Type Department Care Team (Late st Contact Info) Description 07/12/2024 2:45 PM EST Office Visit [facility] MEDICINE [address] [place] [address] Bharati Soriano MD [address] [place] [address] 09/07/2024 1:00 PM EDT Office Visit [facility] ADULT DENTAL [address] [place] [address] Al Mahoneyaris [address] [place] [address] 09/19/2024 11:00 AM EDT Office Visit [facility] MEDICINE [address] [place] [address] documented as of this encounter Visit Diagnoses Diagnosis Chronic diarrhea Diarrhea Other forms of systemic lupus erythematosus, unspecified [...] documented as of this encounter Care Teams Intake Worker Relationship Specialty Start Date End Date Bharati Soriano MD [address] [place] [address] PCP - General Family Medicine 06/14/18 documented as of this encounter
--- OUTSIDE RECORDS SUMMARY | 2024-07-11 16:36 | XMS_ITS | Encounter Summary ---
Author Organization [employer] Address 75 [facility] 7t [place] [address] Care Team Providers Care Pediatrician Managing Partner Name Role Phone Bharati Soriano MD Primary Care Provider +1- [phone] Vasyl Boles MD Unavailable [phone] Reason for Visit * Reason Onset Date Comments Appointment Request 09/29/2023 Encounter Details Date Type Department Care Team (Late st Contact Info) Description 09/29/2023 Telephone [facility] MEDICINE 230 [place], [place] [phone] Bharati Soriano MD 230 [place], [place] [phone] Appointment Request Social History Tobacco Use Types Packs/Day Years [...] encounter Miscellaneous Notes * Telephone Encounter - Jaun Moyer - 09/29/2023 10:56 AM EDT Tc from pt requesting a follow up appt per recall ( Follow up in about 6 months (around 11/10/2023) for follow up chronic conditions . ) , brief writer attempted to schedule however zero availability. Please contact at [phone] documented in this encounter Plan of Treatment Upcoming Encounters Date Type Department Care Team (Late st Contact Info) Description 07/12/2024 2:45 PM EST Office Visit [facility] MEDICINE [address] [place] [address] Bharati Soriano MD 230 [place] [address] 09/07/2024 1:00 PM EDT Office Visit [facility] ADULT DENTAL [address] [place] [address] Elo Mahoney 230 [place] [address] 09/19/2024 11:00 AM EDT Office Visit [facility] MEDICINE [address] [place] [address] documented as of this encounter Visit Diagnoses Not on filedocumented in this encounter Additional Health Concerns Assessment Noted Time PHQ-9 Depression Total Score: 0 10/16/19 23 2:27 PM EDT documented as of this encounter Care Teams Pediatrician Managing Partner Relationship Specialty Start Date End Date Bharati Soriano MD [address] [place] [address] [place] [address] PCP - General Family Medicine 06/14/18 Vasyl Boles MD [address] [place] [address] [address] [place] [phone] Gastroenterology 06/20/24 documented as of this encounter
--- OUTSIDE RECORDS SUMMARY | 2024-07-11 16:36 | XMS_ITS | Encounter Summary ---
Author Organization [employer] Address 75 [facility] 7t [place] [address] Care Team Providers Care Senior Clerk Name Role Phone Bharati Soriano MD Primary Care Provider +1- [phone] Vasyl Boles MD Unavailable [phone] Encounter Details Date Type Department Care Team (Latest Contact Info) Description 07/11/2024 Travel Social History Tobacco Use Types Packs/Day Years [...] Description 07/12/2024 2:45 PM EST Office Visit [facility] MEDICINE [address] [place] [address] Bharati Soriano MD [address] [place] [address] 09/07/2024 1:00 PM EDT Office Visit [facility] ADULT DENTAL 230 [place] [address] Denzel, Elo 230 [place] [address] 09/19/2024 11:00 AM EDT Office Visit [facility] MEDICINE [address] [place] [address] documented as of this encounter Visit Diagnoses Not on filedocumented in this encounter Additional Health Concerns Assessment Noted Time PHQ-9 Depression Total Score: 1 01/14/20 24 10:00 AM EDT documented as of this encounter Care Teams Senior Clerk Relationship Specialty Start Date End Date Bharati Soriano MD [address] [place] [address] PCP - General Family Medicine 06/14/18 Vasyl Boles MD [address] [place] [phone] Gastroenterology 06/20/24 documented as of this encounter
--- OUTSIDE RECORDS SUMMARY | 2024-07-11 16:36 | XMS_ITS | Encounter Summary ---
Author Organization [employer] Address 75 [facility] 7t [place] [address] Care Team Providers Care Respiratory Director Name Role Phone Bharati Soriano MD Primary Care Provider +1- [phone] Vasyl Boles MD Unavailable [phone] Reason for Visit * Reason Onset Date Comments Call Back Request 10/25/2023 Encounter Details Date Type Department Care Team (Late st Contact Info) Description 10/25/2023 Telephone [facility] MEDICINE 230 [place], [place] [phone] Bharati Soriano MD 230 [place], [place] [phone] Call Back Request Social History Tobacco Use Types Packs/Day Years Used Date Smoking Tobacco: Never Passive Smoke Exposure: Never Smokeless Tobacco: Never Depression Answer Date Recorded Patient Health Questionnaire-9 Score 0 10/15/2022 Housing Stability Answer Date Recorded What is your housing situation today? I have anita anaya 03/29/[address] you li ve. Do you have problems with any of the following? None of the above 03/29/2023 Food Insecurity Answer Date Recorded Within the past 12 months, y ou worried that your food would run out before you got money to buy more: Never True 03/29/2023 Within the past 12 months,th e food you bought just didn't last and you didn't have enough money to get more: Never True Transportation Answer Date Recorded In the past 12 months, has l ack of transportation kept you from medical appts, meetings, work or from getting things needed for daily living? No 03/29/2023 Utilities Answer Date Recorded In the past 12 months, has t he electric, gas, oil or water company threatened to shut off services in your home? No 03/29/2023 Depression Answer Date Recorded Patient Health Questionnaire-2 Score 0 10/15/2022 Comments Unknown Sex and Gender Information Value Date Recorded Sex Assigned at Female 04/13/2022 10:14 AM EDT Legal Sex Female 10:14 AM EDT Gender Identity Female 04/13/2022 10:14 AM EDT Sexual Orientation Straight 04/13/2022 10 :14 AM EDT documented as of this encounter Miscellaneous Notes * Telephone Encounter - Ana Paula Raines - 10/26/2023 2:53 PM EDT Tc from pt calling in regards below message. * Telephone Encounter - Trinh Esparza - 10/25/2023 11:15 AM EDT Tc from pt requesting to speak with a nurse in regards to pain management program. Pt had to cancel10/25 appointment due to not feeling well. Pt is requesting to go back to seeing pain management provider every three months instead of every month. Please contact pt at [phone] documented in this encounter Plan of Treatment Upcoming Encounters Date Type Department Care Team (Late st Contact Info) Description 07/12/2024 2:45 PM EST Office Visit [facility] MEDICINE [address] [place] [address] Bharati Soriano MD [address] [place] [address] 09/07/2024 1:00 PM EDT Office Visit [facility] ADULT DENTAL [address] [place] [address] Elo Mahoney 230 [place] [address] 09/19/2024 11:00 AM EDT Office Visit [facility] MEDICINE [address] [place] [address] [place] [address] documented as of this encounter Visit Diagnoses Not on filedocumented in this encounter Additional Health Concerns Assessment Noted Time PHQ-9 Depression Total Score: 0 10/16/19 23 2:27 PM EDT documented as of this encounter Care Teams Respiratory Director Relationship Specialty Start Date End Date Bharati Soriano MD 230 [place] [address] PCP - General Family Medicine 06/14/18 Vasyl Boles MD [address] [place] [address] [place] [phone] Gastroenterology 06/20/24 documented as of this encounter
--- OUTSIDE RECORDS SUMMARY | 2024-07-11 16:36 | XMS_ITS | Encounter Summary ---
Author Organization [employer] [facility] Address [address] [address] 7 [place] [address] Care Team Providers Care Wellness Coach Name Role Phone Bharati Soriano MD Primary Care Provider [phone]- [phone] Vasyl Boles MD Unavailable [phone] Encounter Details Date Type Department Care Team (Latest Contact Info) Description 03/26/2021 Abstract [facility] CONVERSIONS Dental, Provider, DDS Social History [...] Description 07/12/2024 2:45 PM EST Office Visit [facility] MEDICINE [address] [place] [address] Bharati Soriano MD 230 [place] [address] 09/07/2024 1:00 PM EDT Office Visit [facility] ADULT DENTAL 230 [place] [address] Elo Mahoney 230 [place] [address] 09/19/2024 11:00 AM EDT Office Visit [facility] MEDICINE [address] [place] [address] documented as of this encounter Visit Diagnoses Not on filedocumented in this encounter Care Teams Wellness Coach Relationship Specialty Start Date End Date Bharati Soriano MD [address] [place] [address] PCP - General Family Medicine 06/14/18 Vasyl oBles MD [address] [place] [address] [address] [place] [phone] Gastroenterology 06/20/24 documented as of this encounter
--- OUTSIDE RECORDS SUMMARY | 2024-07-11 16:36 | XMS_ITS | Encounter Summary ---
Author Organization [employer] Address 75 [facility] 7t [place] [address] Care Team Providers Care Client Account Assistant Name Role Phone Bharati Soriano MD Primary Care Provider +1- [phone] Vasyl Boles MD Unavailable [phone] Encounter Details Date Type Department Care Team ([facility] st Contact Info) Description 05/30/2024 Telephone [facility] MEDICINE [address] [place], [place] [phone] Bharati Soriano MD 230 [place], [place] [phone] Social History Tobacco Use Types Packs/Day Years [...] Description 07/12/2024 2:45 PM EST Office Visit [facility] MEDICINE [address] [place] [address] Bharati Soriano MD [address] [place] [address] 09/07/2024 1:00 PM EDT Office Visit [facility] ADULT DENTAL [address] [place] [address] Denzel, Elo 230 [place] [address] 09/19/2024 11:00 AM EDT Office Visit [facility] MEDICINE [address] [place] [address] documented as of this encounter Visit Diagnoses Not on filedocumented in this encounter Additional Health Concerns Assessment Noted Time PHQ-9 Depression Total Score: 1 01/14/20 24 10:00 AM EDT documented as of this encounter Care Teams Client Account Assistant Relationship Specialty Start Date End Date Bharati Soriano MD [address] [place] [address] PCP - General Family Medicine 06/14/18 Vasyl Boles MD [address] [place] [address] [address] [place] [phone] Gastroenterology 06/20/24 documented as of this encounter
--- OUTSIDE RECORDS SUMMARY | 2024-07-11 16:36 | XMS_ITS | Encounter Summary ---
Author Organization [employer] Address 75 [facility] 7t [place] [address] Care Team Providers Care Stockroom Associate Name Role Phone Bharati Soriano MD Primary Care Provider +1- [phone] Vasyl Boles MD Unavailable [phone] Reason for Visit * Reason Comments Med Refill Encounter Details Date Type Department Care Team (Late st Contact Info) Description 07/02/2023 Refill [facility] MEDICINE 230 [place] [address] Bharati Soriano MD 230 [place], [place] [phone] Social History Tobacco Use Types Packs/Day Years [...] Description 07/12/2024 2:45 PM EST Office Visit [facility] MEDICINE [address] [place] [address] Bharati Soriano MD [address] [place] [address] 09/07/2024 1:00 PM EDT Office Visit [facility] ADULT DENTAL [address] [place] [address] Denzel, Elo 230 [place] [address] 09/19/2024 11:00 AM EDT Office Visit [facility] MEDICINE [address] [place] [address] documented as of this encounter Visit Diagnoses Not on filedocumented in this encounter Additional Health Concerns Assessment Noted Time PHQ-9 Depression Total Score: 0 10/16/19 23 2:27 PM EDT documented as of this encounter Care Teams Stockroom Associate Relationship Specialty Start Date End Date Bharati Soriano MD [address] [place] [address] PCP - General Family Medicine 06/14/18 Vasyl Boles MD [address] [place] [address] [place] [phone] Gastroenterology 06/20/24 documented as of this encounter
--- OUTSIDE RECORDS SUMMARY | 2024-07-11 16:36 | XMS_ITS | Encounter Summary ---
Author Organization [employer] Address 75 [facility] 7t [place] [address] Care Team Providers Care Combat Engineer Name Role Phone Bharati Soriano MD Primary Care Provider +1- [phone] Vasyl Boles MD Unavailable [phone] Reason for Visit * Reason Comments Med Refill Encounter Details Date Type Department Care Team (Late st Contact Info) Description 07/04/2023 Refill [facility] MEDICINE 230 [place] [address] Bharati Soriano MD 230 [place], [place] [phone] Acquired hypothyroidism; Dyslipidemia Social History Tobacco Use Types Packs/Day Years [...] Office Visit [facility] MEDICINE [address] [place] [address] Bharati Soriano MD [address] [place] [address] 09/07/2024 1:00 PM EDT Office Visit [facility] ADULT DENTAL [address] [place] [address] Denzel, Elo [address] [place] [address] 09/19/2024 11:00 AM EDT Office Visit [facility] MEDICINE [address] [place] [address] documented as of this encounter Visit Diagnoses Diagnosis Acquired hypothyroidism Unspecified hypothyroidism Dyslipidemia Other and unspecified hyperlipidemia Other forms of systemic lupus erythematosus, unspecified [...] documented as of this encounter Care Teams Combat Engineer Relationship Specialty Start Date End Date Bharati Soriano MD [address] [place] [address] PCP - General Family Medicine 06/14/18 Vasyl Boles MD [address] [place] [address] [address] [place] [phone] Gastroenterology 06/20/24 documented as of this encounter
--- OUTSIDE RECORDS SUMMARY | 2024-07-11 16:36 | XMS_ITS | Encounter Summary ---
Author Organization [employer] Address [address] [place] [address] 7 [place] [address] Care Team Providers Care Sand Cleaning Machine Operator Name Role Phone Bharati Soriano MD Primary Care Provider [phone]- [phone] Vasyl Boles MD Unavailable [phone] Encounter Details Date Type Department Care Team (Late st Contact Info) Description 06/12/2022 Orders Only [facility] CHC MED & PEDS [address] [place], [place] [phone] Leena Verdin ANP [address] [place] [address] Social History Tobacco Use Types Packs/Day Years [...] Description 07/12/2024 2:45 PM EST Office Visit [facility] MEDICINE 230 [place], [place] [phone] Bharati Soriano MD 230 [place], [place] [phone] 09/07/2024 1:00 PM EDT Office Visit [facility] ADULT DENTAL 230 [place], [place] 1888340 Elo Mahoney 230 [place] [address] 09/19/2024 11:00 AM EDT Office Visit [facility] MEDICINE 230 [place] [address] documented as of this encounter Visit Diagnoses Not on filedocumented in this encounter Care Teams Sand Cleaning Machine Operator Relationship Specialty Start Date End Date [place], [place] Bharati 230 [place] [address] PCP - General Family Medicine 06/14/18 Vasyl Boles MD [address] [place] [address] [place] [phone] Gastroenterology 06/20/24 documented as of this encounter
--- OUTSIDE RECORDS SUMMARY | 2024-07-11 16:36 | XMS_ITS | Encounter Summary ---
Author Organization [employer] Address 75 [facility] 7t [place] [address] Care Team Providers Care Customer Solutions Representative Name Role Phone Bharati Soriano MD Primary Care Provider [phone]- [phone] Vasyl Boles MD Unavailable [phone] Encounter Details Date Type Department Care Team (Late st Contact Info) Description 09/29/2023 Abstract [facility] MEDICINE 230 [place], [place] [phone] Bharati Soriano MD 230 [place], [place] [phone] Social History Tobacco Use Types Packs/Day Years [...] t he electric, gas, oil or water [employer] threatened to shut off services in your [...] Description 07/12/2024 2:45 PM EST Office Visit [facility] MEDICINE [address] [place] [address] Bharati Soriano MD [address] [place] [address] 09/07/2024 1:00 PM EDT Office Visit [facility] ADULT DENTAL 230 [place] [address] Denzel, Elo [address] [place] [address] 09/19/2024 11:00 AM EDT Office Visit [facility] MEDICINE [address] [place] [address] documented as of this encounter Procedures Procedure Name Priority Date/Time Associated Diagnosis Comments MAMMOGRAPHY Routine 09/29/2023 11:17 AM EDT documented in this encounter Results * (ABNORMAL) Mammography (09/29/2023 11:17 AM EDT) Mammogram BIRADS 1 Normal, Abnormal, BIRADS 1 , BIRADS 2 Anatomical Region Laterality Modality Other us Historical Provider HEALTH MAINTENANCE Final Result documented in this encounter Visit Diagnoses Not on filedocumented in this encounter Additional Health Concerns Assessment Noted Time PHQ-9 Depression Total Score: 0 10/16/19 23 2:27 PM EDT documented as of this encounter Care Teams Customer Solutions Representative Relationship Specialty Start Date End Date Bharati Soriano MD NPI: [id number] [place] [address] PCP - General Family Medicine 06/14/18 Vasyl Boles MD [address] [place] [phone] Gastroenterology 06/20/24 documented as of this encounter
--- OUTSIDE RECORDS SUMMARY | 2024-07-11 16:36 | XMS_ITS | Encounter Summary ---
Author Organization [employer] Address [address] [facility] [address] 7t [place] [address] Care Team Providers Care Clinical Nurse Educator Name Role Phone Bharati Soriano MD Primary Care Provider +1- [phone] Vasyl Boles MD Unavailable [phone] Encounter Details Date Type Department Care Team (Late st Contact Info) Description 09/29/2023 Orders Only [facility] 230 [place], [place] [phone] Bryon Fuller MD 230 [place], [place] [phone] Social History Tobacco Use Types Packs/Day Years [...] Description 07/12/2024 2:45 PM EST Office Visit [facility] MEDICINE [address] [place] [address] Bharati Soriano MD [address] [place] [address] 09/07/2024 1:00 PM EDT Office Visit [facility] ADULT DENTAL [address] [place] [address] Denzel, Elo [address] [place] [address] 09/19/2024 11:00 AM EDT Office Visit [facility] MEDICINE [address] [place] [address] documented as of this encounter Visit Diagnoses Not on filedocumented in this encounter Additional Health Concerns Assessment Noted Time PHQ-9 Depression Total Score: 0 10/16/19 23 2:27 PM EDT documented as of this encounter Care Teams Clinical Nurse Educator Relationship Specialty Start Date End Date Bharati Soriano MD [address] [place] [address] PCP - General Family Medicine 06/14/18 Vasyl Boles MD [address] [place] [phone] Gastroenterology 06/20/24 documented as of this encounter
--- OUTSIDE RECORDS SUMMARY | 2024-07-11 16:36 | XMS_ITS | Encounter Summary ---
Author Organization [employer] [facility] Address [address] [place] [address] 7 [place] [address] Care Team Providers Care Relay Assembler Name Role Phone Bharati Soriano MD Primary Care Provider +1- [phone] Vasyl Boles MD Unavailable Encounter Details Date Type Department Care Team (Latest Contact Info) Description 03/16/2022 Abstract [facility] CONVERSIONS Dental, Provider, DDS Social History Tobacco [...] Description 07/12/2024 2:45 PM EST Office Visit [facility] MEDICINE [address] [place] [address] Bharati Soriano MD 230 [place] [address] 09/07/2024 1:00 PM EDT Office Visit [facility] ADULT DENTAL [address] [place] [address] Elo Mahoney [address] [place] [address] 09/19/2024 11:00 AM EDT Office Visit [facility] MEDICINE [address] [place] [address] documented as of this encounter Visit Diagnoses Not on filedocumented in this encounter Care Teams Relay Assembler Relationship Specialty Start Date End Date Bharati Soriano MD [address] [place] [address] PCP - General Family Medicine 06/14/18 Vasyl Boles MD [address] [place] [address] [address] [place] [phone] Gastroenterology 06/20/24 documented as of this encounter
--- OUTSIDE RECORDS SUMMARY | 2024-07-11 16:36 | XMS_ITS | Clinical Summary ---
Author Organization [employer] Address [address] [place] [address] [address] [place] [address] Care Team Providers Care Cigar Head Pegger Name Role Phone Bharati Soriano MD Primary Care Provider [phone] Vasyl Boles MD Unavailable [phone] Allergies Active Allergy Reactions Criticality Noted Date Comments Aspirin GI bleeding 03/09/2013 Other reaction(s): Unknown Other reaction(s): bleeding Lisinopril Unknown 12/25/2021 Other reaction(s): throat itching Metoprolol 01/30/2013 Other reaction(s): throat itching, Unknown Nsaids GI bleeding 03/09/2013 Other reaction(s): bleeding, Unknown Simvastatin 01/30/2013 Other reaction(s): abdominal pain, Unknown Medications * This document contains information received from the source organization and may not represent a complete record from that organization. acetaminophen (Tylenol) 500 MG tabletIndications :Chronic midline low back pain, unspecified whether sciatica present Take 500 mg by mouth every 8 (eight) hours if needed. 017 Active hydroxychloroquin e (Plaquenil) 200 MG tabletIndications :Systemic lupus erythematosus, unspecified SLE type, unspecified organ involvement status (CMS/HCC) Take 1 tablet by mouth in the morning. 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 021 Active Diaper Rash Products (A+D Diaper Rash) creamIndications: Chronic diarrhea Apply 1 application topically if needed in the morning and at bedtime (prn rash). 45 g 3 023 Active levothyroxine (Synthroid, Levoxyl) 25 MCG tabletIndications :Acquired hypothyroidism TAKE 1 TABLET BY MOUTH EVERY DAY 90 tablet 3 024 Active alendronate (Fosamax) 70 MG tabletIndications :Other osteoporosis without current pathological fracture Take 70 mg by mouth. 019 Active levothyroxine (Synthroid, Levoxyl) 25 MCG tabletIndications :Hypothyroidism, unspecified type Take 25 mcg by mouth. 018 Active traZODone (Desyrel) 100 MG tabletIndications :Insomnia, unspecified type Take 1 tablet (100 mg) by mouth at bedtime. 90 tablet 3 024 Active amLODIPine (Norvasc) 10 MG tabletIndications :Hypertension, unspecified type Take 10 mg by mouth Once per day. Active omeprazole (PriLOSEC) [address] capsuleIndication s:Gastroesophagea l reflux disease without esophagitis TAKE 1 CAP (20 MG) BY MOUTH BEFORE BREAKFAST DO NOT CRUSH, CHEW, OR SPLIT 90 capsule 1 024 Active pravastatin (Pravachol) 20 MG tabletIndications :Dyslipidemia TAKE 1 TABLET BY MOUTH EVERYDAY AT BEDTIME 90 tablet 3 024 Active alendronate (Fosamax) 70 MG tabletIndications :Other osteoporosis without current pathological fracture TAKE 1 TABLET BY MOUTH EVERY WEEK IN THE MORNING, AT LEAST 30 MIN BEFORE FOOD, BEVERAGE, OR MEDICATION.STEVEN E WITH 8 OZ WATER. REMAIN UPRIGHT AT LEAST 30 MIN AFTER TAKING MEDICATION 12 tablet 3 024 Active albuterol (Ventolin HFA) 108 (90 Base) MCG/ACT inhalerIndication s:Mild intermittent asthma, unspecified whether complicated TAKE 2 PUFFS BY MOUTH EVERY 4-6 HOURS NEEDED 18 g 1 025 Active loperamide (Imodium) 2 MG capsuleIndication s:Chronic diarrhea TAKE 1 CAPSULE (2 MG) BY MOUTH EVERY 6 (SIX) HOURS IF NEEDED FOR DIARRHEA. 30 capsule 025 Active oxyCODONE-acetami nophen (Percocet) 5-325 MG tabletIndications :Pain Take 1 tablet by mouth every 6 (six) hours if needed for severe pain for up to 28 days. 84 tablet 025 2024 Active loperamide (Imodium) 2 MG capsuleIndication s:Chronic diarrhea TAKE 1 CAPSULE (2 MG) BY MOUTH EVERY 6 (SIX) HOURS IF NEEDED FOR DIARRHEA. 30 capsule 024 2024 Discontinued(R eorder (will not trigger notification to Pharmacy)) albuterol (Ventolin HFA) 108 (90 Base) MCG/ACT inhalerIndication s:Mild intermittent asthma, unspecified whether complicated TAKE 2 PUFFS BY MOUTH EVERY 4-6 HOURS NEEDED 18 g 1 024 2024 Discontinued oxyCODONE-acetami nophen (Percocet) 5-325 MG tabletIndications :Pain Take 1 tablet by mouth every 6 (six) hours if needed for severe pain for up to 28 days. 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 Confirmatory sent to lab, results to be communicated to PCP when available. Vitamin D deficiency 12/22/2023 Insomnia 12/22/2023 Physical exam 05/12/2023 Overview (05/12/2023): -Normal growth and development. -Anticipatory guidance discussed. -Preventative care / harm reduction discussed. Assessment & Plan (05/12/2023 10:18 AM EST): -Normal growth and development. -Anticipatory guidance discussed. -Preventative care / harm reduction discussed. Preventative health care 04/24/2023 Overview (12/22/2023): -next physical exam due after 05/12/2024 -eye care facilitated by [facility] -dental home is [facility] -Health care proxy given and filed 12/22/23 Assessment & Plan (12/22/2023 2:27 PM EDT): -next physical exam due after 05/12/2024 -eye care facilitated by [facility] -dental home is [facility] -Health care proxy given and filed 12/22/23 Assessment & Plan (05/12/2023 10:17 AM EST): -next physical exam due after 05/12/2024 -eye care facilitated by -dental home is Lumbar radiculopathy 10/15/2022 Radiation proctitis 10/15/2022 Sacroiliac joint pain 10/15/2022 History of GI bleed 05/11/2022 Overview (05/11/2022): -Hx LGIB November 2012 -Hx LGIB 05/11/2019 in setting of acute collitis Assessment & Plan (05/12/2023 10:17 AM EST): -Hx LGIB November 2012 -Hx LGIB 05/11/2019 in setting of acute collitis Lupus (systemic lupus erythematosus) 05/08/2022 Overview (04/28/2023): Diagnoses 04/2018 baed on arthralgia, Raynauds, Sicca symptoms, positive LUISITO, 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 Followed by rheumatology. Lat note from Dr. Flores 04/06/23 reviewed. 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 Followed by rheumatology. Lat note from Dr. Flores 04/06/23 reviewed. 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 Followed by rheumatology. Lat note from Dr. Flores 04/06/23 reviewed. 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 Followed by rheumatology. -Plaquenil 200mg BID started 04/2018 -continue regular eye exams -s/p flu vaccine 02/2020 done at [facility] -PCV 23 04/2019 Chronic diarrhea 05/08/2022 Other osteoporosis without current pathological fracture 05/08/2022 Hypothyroidism 05/08/2022 Abnormal QT interval present on electrocardiogra phy 11/11/2017 Palpitations 11/11/2017 Anemia 12/06/2012 Chronic renal insufficiency 12/06/2012 Gastroesophageal reflux disease without esophagi tis 12/06/2012 Raynaud's disease 12/06/2012 History of squamous cell carcinoma 12/06/2012 Overview (05/11/2022): -Hx rectal carcinoma s/p radiation and chemotherapy in 2008 -s/p oncology with Dr. Blanco last 06/2019 recommending follow up prn -pt with resultant chronic diarrhea Assessment & Plan (05/12/2023 10:16 AM EST): -Hx rectal carcinoma s/p radiation and chemotherapy in 2008 -s/p oncology with Dr. Blanco last 06/2019 recommending follow up prn -pt with resultant chronic diarrhea Assessment & Plan (05/11/2022 12:54 PM EST): -Hx rectal carcinoma s/p radiation and chemotherapy in 2008 -s/p oncology with Dr. Blanco last 06/2019 recommending follow up prn -pt with resultant chronic diarrhea Tubular adenoma of colon 06/15/2012 Overview (05/11/2022): -On colonoscopy 02/2017 and 03/20/[address] Boles Assessment & Plan (05/12/2023 10:17 AM EST): -On colonoscopy 02/2017 and 03/20/[address] Boles Assessment & Plan (05/11/2022 12:58 PM EST): -On colonoscopy 02/2017 and 03/20/[address] Boles Incontinence of feces 06/15/2012 Chronic low back pain 04/04/2012 Assessment & Plan (01/04/2024 2:33 PM EDT): Good engagement and participation with Group Medical Visit model Encouraged multifactorial approach to pain control including pharm and non-pharm modalities Pill count as expected today, utox with positive for fentanyl and benzo, unexpected, sendout urine for confirmatory testing Followup every 3 months with pill count and utox Assessment & Plan (09/23/2023 10:30 AM EDT): Good engagement and participation with Group Medical Visit model Encouraged multifactorial approach to pain control including pharm and non-pharm modalities Continues with COT, pill count and UTOX as expected. Interested in follow up every 2-3 months Assessment & Plan (08/24/2023 1:57 PM EDT): Good engagement and participation with Group Medical Visit model Encouraged multifactorial approach to pain control including pharm and non-pharm modalities Continues with COT, pill count as expected, UTOX NOT as expected (positive for fentanyl and BZO, send out for confirmation) Assessment & Plan (07/06/2023 3:00 PM EST): -Participation in Group -UTOX and pill count as expected. See shoe folder for further details -Encouraged to cont with pharm and non-pharm tx modalities Chronic type B viral hepatitis 04/04/2012 Overview (05/12/2023): VL 799 IU/mL, 2.90 log on 05/23/18 LFT's normal on 07/14/18 Currently on Plaquenil for lupus Assessment & Plan (12/22/2023 8:39 AM EDT): VL 799 IU/mL, 2.90 log on 05/23/18 LFT's normal on 07/14/18 Currently on Plaquenil for lupus Assessment & Plan (05/12/2023 10:15 AM EST): VL 799 IU/mL, 2.90 log on 05/23/18 LFT's normal on 07/14/18 Currently on Plaquenil for lupus Assessment & Plan (10/15/2022 2:22 PM EDT): VL 799 IU/mL, 2.90 log on 05/23/18 LFT's normal on 07/14/18 Currently on Plaquenil for lupus Depressive disorder 04/04/2012 Assessment & Plan (01/04/2024 2:33 PM EDT): Reports that she has been in a more depressive state the past three months Would like to be seen via zoom counseling Dyslipidemia 12/17/2011 Overview (12/22/2023): Lab Results Component Value Date CHOLESTEROL 196 10/20/2022 LDLCHOL 84 10/20/2022 LDLCHOL 101 (H) 05/01/2021 TRIG 109 10/20/2022 HDLCHOL 91 10/20/2022 CHOLHDLRAT 2.2 10/20/2022 -continue lifestyle modifications Assessment & Plan (12/22/2023 8:38 AM EDT): Lab Results Component Value Date CHOLESTEROL 196 10/20/2022 LDLCHOL 84 10/20/2022 LDLCHOL 101 (H) 05/01/2021 TRIG 109 10/20/2022 HDLCHOL 91 10/20/2022 CHOLHDLRAT 2.2 10/20/2022 -continue lifestyle modifications Hypertension 12/17/2011 Overview (07/06/2023): -Blood pressure is at goal -Continue lifestyle modifications -Continue current medications Assessment & Plan (12/22/2023 2:13 PM EDT): -Blood pressure is at goal -Continue lifestyle modifications -Continue current medications Assessment & Plan (07/06/2023 2:58 PM EST): Elevated in office, following with PCP Assessment & Plan (05/12/2023 10:16 AM EST): -Blood pressure is at goal -Continue lifestyle modifications -Continue current medications Resolved Problems Problem Noted Date Diagnosed Date Resolved Date Tremor 05/08/2022 05/11/2022 Dyspnea 11/11/2017 05/08/2022 Dislocation of temporomandibular joint 12/06/2012 04/24/2023 Encounters Date Type Department Care Team Description 07/11/2024 11:00 AM EST Office Visit [address] [address] Chronic low back pain, unspecified back pain laterality, unspecified whether sciatica present (Primary Dx); Long-term current use of opiate analgesic 07/11/2024 Telephone [facility] [address] [place] [phone] Isaura Goode MA chartprep 07/11/2024 Telephone [facility] [address] [place] [address] Jocelyn Randall RN 07/11/2024 Travel 07/04/2024 Refill [facility] [address] [place] [address] Bharati Soriano MD Pain 06/30/2024 Patient Outreach [facility] [address] [place] [phone] Bharati Soriano MD Pre-visit Planning (SDOH Screening negative and Tobacco screening negative) 06/15/2024 Refill [facility] [address] [place] [address] Rosi Vergara MD Chronic diarrhea 06/15/2024 Refill [facility] [address] [place] [address] Leena Verdin ANP Mild intermittent asthma, unspecified whether complicated; Chronic diarrhea 06/01/2024 Travel 06/01/2024 Refill [facility] [address] [place] [address] Bharati Soriano MD Pain 05/30/2024 Telephone [facility] [address] [place] [address] Bharati Soriano MD 05/25/2024 Refill [facility] [address] [place] [address] Bharati Soriano MD Dyslipidemia; Other osteoporosis without current pathological fracture 05/15/2024 Telephone [facility] [address] [place] [address] Ninoska Keith ND June Recall 05/10/2024 Refill [facility] [address] [place] [address] Bharati Soriano MD Mild intermittent asthma, unspecified whether complicated 05/10/2024 Refill [facility] [address] [place] [address] Bharati Soriano MD Dyslipidemia; Other osteoporosis without current pathological fracture; Mild intermittent asthma, unspecified whether complicated 05/03/2024 Refill [facility] [address] [place] [address] Jocelyn Randall, JÚNIOR Pain 05/03/2024 Telephone [facility] [address] [place] [address] Bharati Soriano MD Med Refill from Last 3 Months Immunizations Name Administration Dates Next Due Hep A, Adult 10/15/2022,07/28/2018 INFLUENZA VACCINE QUADRIVALE NT RECOMBINANT PRESERVATIVE FREE RIV4 03/13/2020 Influenza injectable quadriv alent IIV4 with preservative 04/05/2018,03/11/2016 Influenza injectable quadriv alent preservative free 03/04/2022,03/22/2017,04/25/2015,03/05 Influenza, High Dose Seasona l, Preservative Free 03/14/2019 Influenza, IIV3, injectable 03/26/2021,1 ,02/13/2016,03/26 Influenza, Split (incl. lata fied surface antigen) 03/09/2013,04/04/2012 Moderna Covid-19 Vaccine 12+ 10/02/2020,09/05/19 21 Pfizer Covid-19 Vaccine 12+ 05/12/2023,,05/01/2021 Pfizer Covid-19 Vaccine 12+ willy-sucrose (Alergia Cap) 01/22/2022 Pneumococcal Conjugate PCV 13 05/01/2020 Pneumococcal Polysaccharide PPSV23 05/01/2020, TD (adult), 2 Lf tetanus tox oid, preservative free, adsorbed 03/17/2001 Tdap 10/15/2022,04/04/2012 Zoster, Recombinant 09/03/2021,03/06/2021 Zoster, live 07/25/2014 Social History Tobacco Use Types Packs/Day Years Used Date Smoking Tobacco: Never Passive Smoke Exposure: Never Smokeless Tobacco: Never Tobacco Cessation:Counseling Given: Not Answered Depression Answer Date Recorded Patient Health Questionnaire-9 [...] Orientation Straight 04/13/2022 10 :14 AM EDT Last Filed Vital Signs Vital Sign Reading Time Taken Comments Blood Pressure 130/72 03/09/2024 1:14 PM EDT Pulse 103 01/04/2024 11:39 AM EDT Temperature 36.5 ??C (97.7 ??F) 01/04/2024 11:39 AM E DT Respiratory Rate 20 12/22/2023 1:59 PM EDT Oxygen Saturation 98% 12/22/2023 1:59 PM EDT Inhaled Oxygen Concentration - - Weight 61.5 kg (135 lb 9.6 oz) 12/22/2023 1:59 P M EDT Height 152.4 cm (5') 12/22/2023 1:59 PM EDT Body Mass Index 26.48 12/22/2023 1:59 PM EDT Plan of Treatment Upcoming Encounters Date Type Department Care Team (Late st Contact Info) Description 07/12/2024 2:45 PM EST Office Visit [facility] [address] [place] [phone] Bharati Soriano MD [address] [place] [address] 09/07/2024 1:00 PM EDT Office Visit [facility] [address] [place] [address] Elo Mahoney [address] [place] [address] 09/19/2024 11:00 AM EDT Office Visit [facility] [address] [place] [phone] Health Maintenance Due Date Last Done Comments CT Colonography 1953 FIT DNA/Cologuard 1955 FIT 1953 FOBT 1955 Sigmoidoscopy 1953 RSV Patients and Patients Aged 60 years or older (1 - Risk 60-74 years 1-dose series) 2013 Dental Oral Exam 01/19/2024 07/20/2023 COVID-19 Vaccine ( season) 2024 05/12/2023, 01/22/2022, 01/22/2022, Additional history exists Influenza Vaccine (#1) 2024 , 03/26/2021, 03/13/2020, Additional history exists Dental X-Ray: Full Mouth 03/27/2024 03/26/2022, 03/14 Dental X-Ray: Bitewings 07/21/2024 07/20/19 24 (Patient Refused) Dental Prophylaxis 09/07/2024 03/09/2024, 0 07/20/2023, 09/30/2022 Alcohol/Substance Use Screening 12/21/2024 12/22/2023 Tobacco Screening 01/03/2025 01/04/2024 Depression Screening 01/13/2025 01/14/2024, 01/14/20 24 SDOH Screening 06/30/2025 06/30/2024 Mammogram 09/28/2025 09/29/2023, 09/12, 09/16/2022, Additional history exists Colonoscopy 03/30/2027 03/30/2022 Colorectal Cancer Screening 03/30/2027 Lipid Panel 04/26/2029 04/26/2024, 05/0 02/2023, 05/01/2021 DTaP/Tdap/Td Vaccines (3 - Td or Tdap) 10/15/2032 10/15/2022, 04/04/2012, 03/17/2001 Hepatitis C Screening Completed 03/18/2018 Pneumococcal Vaccine: 65+ Years Completed 05/01/2020, 05/01/2020, 07/28/2018 Zoster Vaccines Completed 09/03/2021, 02/13, 07/25/2014 Hepatitis A Vaccines Completed 10/15/2022, 07/28/19 19 HIB Vaccines Aged Out No longer eligi ble based on patient's age to complete this topic HPV Vaccines Aged Out No longer eligi ble based on patient's age to complete this topic Hepatitis B Vaccines Discontinued IPV Vaccines Aged Out No longer eligi ble based on patient's age to complete this topic Meningococcal Vaccine Aged Out No priscila maria luz eligible based on patient's age to complete this topic RSV under 20 months Aged Out No longe r eligible based on patient's age to complete this topic Rotavirus Vaccines Aged Out No longer eligible based on patient's age to complete this topic Procedures Procedure Name Priority Date/Time Associated Diagnosis Comments POCT MADHU-14 URINE DRUG SCREEN Routine 07/11/2024 1:39 PM EST Chronic low back pain, unspecified back pain laterality, unspecified whether sciatica present ALPHA FETOPROTEIN, TUMOR MARKER Routine 04/26/2024 10:02 AM EST Chronic type B viral hepatitis (CMS/HCC) HEPATITIS B VIRUS DNA, QN, REAL TIME PCR Routine 04/26/2024 10:02 AM EST Chronic type B viral hepatitis (CMS/HCC) VITAMIN D,25-OH,TOTAL,IA Routine 04/26/2024 10:02 AM EST Vitamin D deficiency CBC WITH AUTO DIFFERENTIAL Routine 04/26/2024 10:02 AM EST Chronic type B viral hepatitis (CMS/HCC) TSH W/REFLEX TO FT4 Routine 04/26/2024 1 0:02 AM EST Hypothyroidism, unspecified type BASIC METABOLIC PANEL Routine 04/26/2024 10:02 AM EST Hypertension, unspecified type LIPID PANEL, STANDARD Routine 04/26/2024 10:02 AM EST Dyslipidemia HEPATIC FUNCTION PANEL Routine 04/26/2024 10:02 AM EST Chronic type B viral hepatitis (CMS/HCC) PROPHYLAXIS - ADULT Routine 03/09/2024 1 :00 PM EDT HM MAMMOGRAPHY Routine 09/29/2023 11:17 AM EDT PERIODIC ORAL EVALUATION - ESTABLISHED PATIENT Routine 07/20/2023 3:00 PM EST HM COLONOSCOPY Routine 03/30/2022 HEPATITIS C ANTIBODY (EXTERNAL RESULTS ONLY) Routine 03/18/2018 2:33 PM EDT from Last 3 Months or Most Recently Relevant to Health Maintenance Results * (ABNORMAL) POCT MADHU-14 Urine Drug Screen (07/11/2024 1:39 PM EST) Benzodiazepines Screen, Urine Positive Buprenophine Screen, Urine Positive Oxycodone Screen, Urine Positive Urine Urine specimen obtained by clean catch procedure / Unknown 07/11/2024 1:39 PM EST Mily TILLMANP POINT OF CARE TEST ENTER/EDIT ORDERABLES Final Result * Vitamin D, 25-Hydroxy, Total, Immunoassay (04/26/2024 10:02 AM EST) Vitamin D 25-OH Total 35.8 >30 ng/mL [facility] Comment:Health Based Referen ce Values*< 20 ng/mL [id number] ng/mL Insufficient> 30 ng/mL Sufficient*Bulmaro DODSON. N Engl J Med. 2007;357:266-280Care must be taken in interpreting Vitamin D results fromdifferent laboratories and methodologies. Published datademonstrated that results from patients undergoinghemodialysis may show a negative bias when tested withvarious automated 25-OH vitamin D assays when compared toLC-MS/MS.When testing samples from patients whose predominant form ofVitamin D is Vitamin D2, such as patients receiving VitaminD2 supplementation, results that are subtherapeutic shouldbe confirmed with another method such as LC-MS/MS. Blood 04/26/2024 10:0 2 AM EST 04/26/2024 10:02 AM EST Bharati Soriano MD LAB BLOOD ORDERABLES Final Result [facility] [address] [place] [address] [phone] * TSH with Reflex to Free T4 (04/26/2024 10:02 AM EST) Pathologist [facility] TSH reflex Free T4 1.72 0.32 - 4.0 uIU/mL [facility] Blood 04/26/2024 10:0 2 AM EST 04/26/2024 10:02 AM EST Bharati Soriano MD LAB BLOOD ORDERABLES Final Result Performing Organization Address [facility] Co de Phone Number [facility] [address] [place] [phone] * (ABNORMAL) CBC auto differential (04/26/2024 10:02 AM EST) [facility] White Blood Count 5.5 4.8 - 10.8 X10*3/uL [facility] Red Blood Count 4.40 4.20 - 5.50 X10*6/uL [facility] Hemoglobin 11.8(L) 12.0 - 16.0 g/dl [facility] Hematocrit 37.5 37.0 - 47.0 % [facility] Mean Corpuscular Volume 85.2 80.0 - 98.0 fL [facility] Mean Corpuscular Hemoglobin 26.8(L) 27.0 - 33.0 pg [facility] Mean Corpuscular HGB Conc 31.5 31.0 - 35.0 g/dl [facility] Red Cell Distribution Width 14.2 11.0 - 16.0 % [facility] Platelet Count 217 160 - 400 X10*3/uL [facility] Mean Platelet Volume 11.4 9.4 - 12.3 fL [facility] Neutrophils Percent Auto 55.9 45 - 73 % [facility] Imm Gran Pct Auto 0.2 0.0 - 0.4 % [facility] Lymphocytes Percent Auto 32.2 20 - 40 % [facility] Monocytes Percent Auto 8.8 2 - 11 % [facility] Eosinophils Percent Auto 2.0 0 - 4 % [facility] Basophils Percent Auto 0.9 0 - 2 % [facility] NRBC Pct Auto 0.0 0.0 - 0.2 /100WBC [facility] Neutrophils Absolute Auto 3.1 2.0 - 8.3 x10*3/uL [facility] Imm Gran Abs Auto 0.01 0.00 - 0.03 X10*3/uL [facility] Lymphocytes Absolute Auto 1.8 1.2 - 4.9 X10*3/uL [facility] Monocytes Absolute Auto 0.5 0.1 - 1.2 X10*3/uL [facility] Eosinophils Absolute Auto 0.1 0.0 - 0.4 X10*3/uL [facility] Basophils Absolute Auto 0.1 0.0 - 0.2 X10*3/uL [facility] NRBC Abs Auto 0.000 0.0 - 0.012 X10*3/uL [facility] Blood Venous blood specimen / Unknown 04/26/2024 10:02 AM EST 04/26/2024 10:02 AM EST us Bharati Soriano MD LAB BLOOD ORDERABLES Final Result [facility] [address], [place] [phone] * (ABNORMAL) Alpha-Fetoprotein, Tumor Marker (04/26/2024 10:02 AM EST) Alpha Fetoprotein 6.3(A) ng/mL [facility] Comment:Reference Range: <6. 1The use of AFP as a tumor marker in females is not recommended.This test was performed using the Kwabena Coulterchemiluminescent method. Values obtained fromdifferent assay methods cannot be usedinterchangeably. AFP levels, regardless ofvalue, should not be interpreted as absoluteevidence of the presence or absence of disease.THIS TEST WAS PERFORMED AT:[facility] [address] [id number] BAUTISTA MD Blood Venous blood specimen / Unknown 04/26/2024 10:02 AM EST 04/26/2024 10:02 AM EST Bharati Soriano MD LAB BLOOD ORDERABLES Final Result Performing Organization Address [facility]/ZIP Co de Phone Number [facility] [address] [place] [phone] * (ABNORMAL) Hepatitis B Virus DNA, Quantitative, Real-Time PCR (04/26/2024 10:02 AM EST) [facility] Hepatitis B Viral DNA Qn - cp 1.97(A) NOT DETECTED Log IU/mL [facility] Comment:This test was perfor med using Real-Time Polymerase ChainReaction.Reportable Range: 10 IU/mL to 1,000,000,000 IU/mL.(1.00 Log IU/mL to 9.00 Log IU/mL).THIS TEST WAS PERFORMED AT:[facility] [address] [id number] BAUTISTA MD Hepatitis B Viral DNA Qn-IU/mL 93(A) NOT DETECTED IU/mL [facility] Blood Venous blood specimen / Unknown 04/26/2024 10:02 AM EST 04/26/2024 10:02 AM EST Bharati Soriano MD LAB BLOOD ORDERABLES Final Result Performing Organization Address City/[facility]/ZIP Co de Phone Number [facility] [address] [place] [phone] * Hepatic Function Panel (04/26/2024 10:02 AM EST) Pathologist [facility] Bilirubin, Total 0.8 0.0 - 1.0 mg/dL [facility] Bilirubin, Direct 0.3 0.0 - 0.5 mg/dL [facility] Aspartate Amino Transferase 20 5 - 31 U/L [facility] Alanine Aminotransferase 8 0 - 31 U/L [facility] Total Protein 7.5 6.5 - 8.0 g/dL [facility] Albumin Level 4.4 3.5 - 5.0 g/dL [facility] Alkaline Phosphatase 59 39 - 117 U/L [facility] Blood Venous blood specimen / Unknown 04/26/2024 10:02 AM EST 04/26/2024 10:02 AM EST Bharati Soriano MD LAB BLOOD ORDERABLES Final Result [facility] [address] [place] [phone] * Lipid Panel, Standard (04/26/2024 10:02 AM EST) Triglycerides 118 <150 mg/dL [facility] Comment:Desirable Triglyceri de: less than 150 mg/dLBorderline High Triglyceride 150-199 mg/dLHigh Triglyceride: 200-499 mg/dLVery High Triglyceride: greater than or equal to 5OO mg/dL Cholesterol 173 <200 mg/dL [facility] Comment:Desirable Cholestero l: less than 200 mg/dLBorderline High Cholesterol: 200-239 mg/dLHigh Cholesterol: greater than 239 mg/dL LDL Cholesterol Calculated 84 <100 mg/dL [facility] Comment:Desirable LDL: less than 100 mg/dLNear Optimal/Above Optimal LDL: 110- 129 mg/dLBorderline High LDL: 130-159 mg/dLHigh LDL: 160-189 mg/dLVery High LDL: greater than or equal to 190 mg/dL HDL Cholesterol 66 >40 mg/dL [facility] Comment:Desirable HDL: great er than 40 mg/dL Note: This HDL assay may give artificially low results in patients with liver disease. Blood Venous blood specimen / Unknown 04/26/2024 10:02 AM EST 04/26/2024 10:02 AM EST Bharati Soriano MD LAB BLOOD ORDERABLES Final Result Performing Organization Address [facility] Co de Phone Number [facility] [address] [place] [phone] [phone] * Basic Metabolic Panel (04/26/2024 10:02 AM EST) Sodium 142 135 - 145 mmol/L [facility] Potassium 3.7 3.3 - 5.1 mmol/L [facility] Chloride 106 96 - 108 mmol/L [facility] Carbon Dioxide 26 22 - 29 mmol/L [facility] Anion Gap 14 12 - 20 [facility] Urea Nitrogen (BUN) 12 9 - 16 mg/dL [facility] Creatinine, Serum 0.93 0.5 - 1.4 mg/dL [facility] Estimated Glomerular Filt Rate 60 [facility] Comment:Chronic Kidney Disea se: Estimated GFR < 60 mL/min/1.82t6Gzftmc Kidney Disease: Estimated GFR < 15 mL/min/1.73m2 Glucose 101 60 - 115 mg/dL [facility] Calcium 9.5 8.4 - 10.2 mg/dL [facility] Blood Venous blood specimen / Unknown 04/26/2024 10:02 AM EST 04/26/2024 10:02 AM EST Bharati Soriano MD LAB BLOOD ORDERABLES Final Result Performing Organization Address [facility] Co de Phone Number [facility] [address] [place] [phone] * (ABNORMAL) Mammography (09/29/2023 11:17 AM EDT) Mammogram BIRADS 1 Normal, Abnormal, BIRADS 1 , BIRADS 2 Anatomical Region Laterality Modality Other Historical Provider HEALTH MAINTENANCE Final Result * Colonoscopy (03/30/2022) Colonoscopy Tubular adenoma Dr. Nugent Historical Provider HEALTH MAINTENANCE Final Result * Hepatitis C Antibody (03/18/2018 2:33 PM EDT) Hepatitis C Antibody Nonreactive Blood 03/18/2018 2:33 PM EDT Historical Provider POINT OF CARE TEST ENTER/ EDIT ORDERABLES Final Result from Last 3 Months or Most Recently Relevant to Health Maintenance Insurance [facility] STANDARD MEDICARE DENTAL-[facility] MEDICAID STAND ADULT Advance Directives Documents on File Type Date Recorded Patient Marketing Admin Expl anation Advance Directives and Living Will 12/22/2023 Health Care Proxy 12/22/23 Care Teams Cigar Head Pegger Relationship Specialty Start Date End Date [place], [place] Bharati [address] [place] [address] PCP - General Family Medicine 06/14/18 Vasyl Boles MD [address] [place] [address] [address] [place] [phone] Gastroenterology 06/20/24
--- OUTSIDE RECORDS SUMMARY | 2024-07-11 16:36 | XMS_ITS | Encounter Summary ---
Author Organization [facility] Address [address] [place] [address] [place] [address] Care Team Providers Care Stained Glass Glazier Helper Name Role Phone Bharati Soriano MD Primary Care Provider [phone] Vasyl Boles MD Unavailable [phone] Reason for Referral * Consultation (Routine) - Closed Specialty Diagnoses / Procedures Referred By Contac t Referred To Contact Physical Therapy Diagnoses Chronic low back pain, unspecified back pain laterality, unspecified whether sciatica present Bharati Soriano MD [address] [place] [address] Phone: tel: fax: [facility] / , [address] Phone: tel: fax: Referral ID Status Reason Start Date Expiration Date V isits Requested Visits Authorized [id number] Closed Specialty Services Required 10/15/2023 10/14/2024 1 1 Encounter Details Date Type Department Care Team (Late st Contact Info) Description 10/15/2023 Orders Only [facility] MED[facility] [address] [place] [phone] Bharati Soriano MD [address] [place], [place] [phone] Chronic low back pain, unspecified back pain laterality, unspecified whether sciatica present (Primary Dx) Social History Tobacco Use Types Packs/Day Years [...] Description 07/12/2024 2:45 PM EST Office Visit [facility] [address] [place] [address] Bharati Soriano MD [address] [place] [address] 09/07/2024 1:00 PM EDT Office Visit [facility] ADULT DENTAL [address] [place] [address] Elo Mahoney [address] [place] [address] 09/19/2024 11:00 AM EDT Office Visit [facility] MED[facility]INE [address] [place] [address] Scheduled Referrals Name Type Priority Associated Diagnoses Orde r Schedule Referral to Physical Therapy Outpatient Referral Routine Chronic low back pain, unspecified back pain laterality, unspecified whether sciatica present Expected: 10/15/2023 (Approximate), Expires: 10/14/2024 documented as of this encounter Visit Diagnoses Diagnosis Chronic low back pain, unspecified back pain laterality, unspecified whether sciatica present- Primary Other forms of systemic lupus erythematosus, unspecified [...] documented as of this encounter Care Teams Stained Glass Glazier Helper Relationship Specialty Start Date End Date Bharati Soriano MD [address] [place] [address] PCP - General Family Medicine 06/14/18 Vasyl Boles MD [address] [place] [address] [address] [place] [phone] Gastroenterology 06/20/24 documented as of this encounter
--- OUTSIDE RECORDS SUMMARY | 2024-07-11 16:36 | XMS_ITS | Encounter Summary ---
Author Organization [employer] Address [address] [facility] 7t [place] [address] Care Team Providers Care Silk Top Hat Body Maker Name Role Phone Bharati Soriano MD Primary Care Provider [phone] Vasyl Boles MD Unavailable [phone] Reason for Visit * Reason Onset Date Comments Med Refill 03/31/2024 Encounter Details Date Type Department Care Team (Late st Contact Info) Description 03/31/2024 Telephone [facility] MEDICINE [address] [place] [address] Bharati Soriano MD [address] [place], [place] [phone] Med Refill Social History Tobacco Use Types Packs/Day Years [...] encounter Miscellaneous Notes * Telephone Encounter - Kelechi Loyd - 03/31/2024 9:34 AM EDT TC from pt requesting medication refill. Medications needing refill: oxyCODONE-acetaminophen (Percocet) 5-325 MG tablet To be sent to: [facility]/pharmacy [address] [place] [address] - [address] [place] [address] documented in this encounter Plan of Treatment Upcoming Encounters Date Type Department Care Team (Late st Contact Info) Description 07/12/2024 2:45 PM EST Office Visit [facility] MEDICINE [address] [place] [address] Bharati Soriano MD [address] [place] [address] 09/07/2024 1:00 PM EDT Office Visit [facility] ADULT DENTAL [address] [place] [address] Elo Mahoney [address] [place] [address] 09/19/2024 11:00 AM EDT Office Visit [facility] MEDICINE [address] [place] [address] documented as of this encounter Visit Diagnoses Not on filedocumented in this encounter Additional Health Concerns Assessment Noted Time PHQ-9 Depression Total Score: 1 01/14/20 24 10:00 AM EDT documented as of this encounter Care Teams Silk Top Hat Body Maker Relationship Specialty Start Date End Date Bharati Soriano MD [address] [place] [address] PCP - General Family Medicine 06/14/18 Vasyl Boles MD [address] [place] [phone] Gastroenterology 06/20/24 documented as of this encounter
--- OUTSIDE RECORDS SUMMARY | 2024-07-11 16:36 | XMS_ITS | Encounter Summary ---
Author Organization [employer] Address 75 [facility] 7t [place] [address] Care Team Providers Care Tanyard Worker Name Role Phone Bharati Soriano MD Primary Care Provider [phone] Vasyl Boles MD Unavailable [phone] Reason for Visit * Reason Comments Med Refill Encounter Details Date Type Department Care Team (Late st Contact Info) Description 06/18/2023 Refill [facility] MEDICINE [address] [place] [address] Bharati Soriano MD [address] [place], [place] [phone] Dyslipidemia; Acquired hypothyroidism Social History Tobacco Use Types Packs/Day Years [...] Description 07/12/2024 2:45 PM EST Office Visit [facility] MEDICINE [address] [place] [address] Bharati Soriano MD [address] [place] [address] 09/07/2024 1:00 PM EDT Office Visit [facility] ADULT DENTAL [address] [place] [address] Denzel, Elo [address] [place] [address] 09/19/2024 11:00 AM EDT Office Visit [facility] MEDICINE [address] [place] [address] documented as of this encounter Visit Diagnoses Diagnosis Dyslipidemia Other and unspecified hyperlipidemia Acquired hypothyroidism Unspecified hypothyroidism Other forms of systemic lupus erythematosus, unspecified [...] documented as of this encounter Care Teams Tanyard Worker Relationship Specialty Start Date End Date Bharati Soriano MD [address] [place] [address] PCP - General Family Medicine 06/14/18 Vasyl Boles MD [address] [place] [address] [address] [place] [phone] Gastroenterology 06/20/24 documented as of this encounter
--- OUTSIDE RECORDS SUMMARY | 2024-07-11 16:36 | XMS_ITS | Clinical Summary ---
Author Organization [facility] Facility Address [address] [address] Care Team Providers Care Hot Mill Worker Name Role Phone Christie, Bharati Knight MD Primary Care Provider U navailable Family History Relation Status Comments Father Alive Social History Tobacco Use Types Packs/Day Years Used Date Smoking Tobacco: Never Alcohol Use Standard Drinks/Week Comments No 0 (1 standard drink = 0.6 oz pur e alcohol) Comments Unknown Sex and Gender Information Value Date Recorded Sex Assigned at Not on file Legal Sex Female 5:17 PM EST Gender Identity Not on file Sexual Orientation Not on file Last Filed Vital Signs Vital Sign Reading Time Taken Comments Blood Pressure 124/68 09/26/2019 12:00 PM EDT Pulse 86 09/26/2019 12:00 PM EDT Temperature - - Respiratory Rate - - Oxygen Saturation 97% 02/27/2019 12:00 PM EDT Inhaled Oxygen Concentration - - Weight 58.5 kg (129 lb) 09/26/2019 12:00 PM EDT Height 154.9 cm (5' 0.98 ) 09/26/2019 12:00 PM E DT Body Mass Index 24.39 09/26/2019 12:00 PM EDT Plan of Treatment Health Maintenance Due Date Last Done Comments Breast Cancer Screening 1955 Pneumococcal Vaccine: 65+ Ye ars (1 of 2 - PCV) 11/30/1961 Colorectal Cancer Screening: Annual FOBT 2002 Colorectal Cancer Screening: Colonoscopy 2002 Colorectal Cancer Screening: Sigmoidoscopy 2002 Diabetes: Ophthalmology Exam 07/14/2020 Diabetes: Pedal Pulse Checked 07/14/2020 Diabetes: Sensory Foot Exam 07/14/2020 Diabetes: Visual Foot Exam 07/14/2020 Diabetes: Hemoglobin A1C 08/01/2020 05/01/2020 Influenza Vaccine (#1) 2024 Hepatitis B Vaccine Aged Out No longe r eligible based on patient's age to complete this topic Procedures Procedure Name Priority Date/Time Associated Diagnosis Comments COMPREHENSIVE METABOLIC PANEL Routine 05/01/2020 12:00 AM EST from Last 3 Months or Most Recently Relevant to Health Maintenance Results * Comprehensive Metabolic Panel (05/01/2020 12:00 AM EST) Hemoglobin A1C 5.9 4.0 - 6.0 % PVNMA 05/01/2020 us Rtama Conversion LAB BLOOD ORDERABLES Final Resu lt PVNMA from Last 3 Months or Most Recently Relevant to Health Maintenance Care Teams Hot Mill Worker Relationship Specialty Start Date End Date Bharati Soriano MD PCP - General 06/24/20
--- OUTSIDE RECORDS SUMMARY | 2024-07-11 16:36 | XMS_ITS | Encounter Summary ---
Author Organization [employer] [facility] Address [address] [place] [address] 7t [place] [address] Care Team Providers Care Videotape Sales Representative Name Role Phone Bharati Soriano MD Primary Care Provider [phone] Vasyl Boles MD Unavailable [phone] Reason for Visit * Reason Comments Med Refill Encounter Details Date Type Department Care Team (Late st Contact Info) Description 11/17/2022 Refill [facility] MEDICINE [address] [place] [address] Bharati Soriano MD [address] [place] [address] Wheeze Social History Tobacco Use Types Packs/Day Years Used Date Smoking Tobacco: Never Passive Smoke Exposure: Never Smokeless Tobacco: Never Depression Answer Date Recorded Patient Health Questionnaire-9 Score 0 10/15/2022 Depression Answer Date Recorded Patient Health Questionnaire-2 Score 0 10/15/2022 Comments Unknown Sex and Gender Information Value Date Recorded Sex Assigned at Female 04/13/2022 10:14 AM EDT Legal Sex Female 10:14 AM EDT Gender Identity Female 04/13/2022 10:14 AM EDT Sexual Orientation Straight 04/13/2022 10 :14 AM EDT COVID-19 Exposure Response Date Recorded In the last 10 days, have yo u been in contact with someone who was confirmed or suspected to have Coronavirus/COVID-19? No / Unsure 11/05/2022 10:22 AM EDT documented as of this encounter Plan of Treatment Upcoming Encounters Date Type Department Care Team (Late st Contact Info) Description 07/12/2024 2:45 PM EST Office Visit [facility] MEDICINE [address] [place] [address] Bharati Soriano MD [address] [place] [address] 09/07/2024 1:00 PM EDT Office Visit [facility] ADULT DENTAL [address] [place], [place] [phone] Denzel, Elo [address] [place] [address] 09/19/2024 11:00 AM EDT Office Visit [facility] MEDICINE [address] [place] [address] documented as of this encounter Visit Diagnoses Diagnosis Wheeze Wheezing Other forms of systemic lupus erythematosus, unspecified [...] documented as of this encounter Care Teams Videotape Sales Representative Relationship Specialty Start Date End Date Bharati Soriano MD [address] [place] [address] PCP - General Family Medicine 06/14/18 Vasyl Boles MD [address] [place] [address] DR [address] [place] [phone] Gastroenterology 06/20/24 documented as of this encounter
--- OUTSIDE RECORDS SUMMARY | 2024-07-11 16:36 | XMS_ITS | Encounter Summary ---
Author Organization [employer] Address [address] [facility] 7t [place] [address] Care Team Providers Care Open End Spinning Operator Name Role Phone Bharati Soriano MD Primary Care Provider [phone] Vasly Boles MD Unavailable [phone] Reason for Visit * Reason Comments Pre-visit Planning SDOH Screening negat kellie and Tobacco screening negative Encounter Details Date Type Department Care Team (Late st Contact Info) Description 06/30/2024 Patient Outreach [facility] MEDICINE [address] [place] [address] Bharati Soriano MD [address] [place], [place] [phone] Pre-visit Planning (SDOH Screening negative and Tobacco screening negative) Social History Tobacco Use Types Packs/Day Years [...] AM EDT documented as of this encounter Progress Notes * Isaura Marcial - 06/30/2024 10:24 AM EST CC Isaura Smith placed successful outbound call to patient for pre-visit planning. Patient name and confirmed. Patient confirms appt date and time, and has transportation arrangements. Biggest concern for appointment at this time is has few concerns but will discuss it with PCP in person. Patient advised to bring to appointment a photo id and insurance card. Appropriate screenings completed in anticipation of appointment. documented in this encounter Plan of Treatment Upcoming Encounters Date Type Department Care Team (Late st Contact Info) Description 07/12/2024 2:45 PM EST Office Visit [facility] MEDICINE [address] [place] [address] Bharati Soriano MD [address] [place] [address] 09/07/2024 1:00 PM EDT Office Visit [facility] ADULT DENTAL [address] [place] [address] Elo Mahoney [address] [place] [address] 09/19/2024 11:00 AM EDT Office Visit [facility] [address] [facility] [place] [address] documented as of this encounter Visit Diagnoses Not on filedocumented in this encounter Additional Health Concerns Assessment Noted Time PHQ-9 Depression Total Score: 1 01/14/20 24 10:00 AM EDT documented as of this encounter Care Teams Open End Spinning Operator Relationship Specialty Start Date End Date Bharati Soriano MD [address] [facility] [place] [address] PCP - General Family Medicine 06/14/18 Vasyl Boles MD [address] [place] [phone] Gastroenterology 06/20/24 documented as of this encounter
--- OUTSIDE RECORDS SUMMARY | 2024-07-11 16:36 | XMS_ITS | Encounter Summary ---
Author Organization [employer] [facility] Address [address] [place] [address] 7 [place] [address] Care Team Providers Care Audio Visual Aids Director Name Role Phone Bharati Soriano MD Primary Care Provider [phone] Vasyl Boles MD Unavailable [phone] Reason for Visit * Reason Comments Med Refill Encounter Details Date Type Department Care Team (Late Contact Info) Description 10/05/2022 Refill [facility] MED[facility]INE [address] [place] [address] Bharati Soriano MD [address] [place], [place] [phone] Wheeze Social History Tobacco Use Types Packs/Day Years Used Date Smoking Tobacco: Never Passive Smoke Exposure: Never Smokeless Tobacco: Never Comments Unknown Sex and Gender Information Value [...] suspected to have Coronavirus/COVID-19? No / Unsure 09/30/2022 1:28 PM EDT documented as of this encounter Plan of Treatment Upcoming Encounters Date Type Department Care Team (Late Contact Info) Description 07/12/2024 2:45 PM EST Office Visit [facility] MEDICINE [address] [place] [phone] Bharati Soriano MD [address] [place] [address] 09/07/2024 1:00 PM EDT Office Visit [facility] ADULT DENTAL [address] [place] [address] Elo Mahoney [address] [place] [address] 09/19/2024 11:00 AM EDT Office Visit [facility] MEDICINE [address] [place] [address] documented as of this encounter Visit Diagnoses Diagnosis Wheeze Wheezing Other forms of systemic lupus erythematosus, unspecified organ involvement status (CMS/HCC) Chronic type B viral hepatitis (CMS/HCC) Viral hepatitis B without mention of hepatic coma, chronic, without mention of hepatitis delta Dietary counseling Dietary surveillance and counseling Exercise counseling documented in this encounter Care Teams Audio Visual Aids Director Relationship Specialty Start Date End Date Bharati Soriano MD [address] [place] [address] PCP - General Family Medicine 06/14/18 Vasyl Boles MD [address] [place] [address] [address] [place] [phone] Gastroenterology 06/20/24 documented as of this encounter
--- OUTSIDE RECORDS SUMMARY | 2024-07-11 16:36 | XMS_ITS | Patient Health Record ---
Author Organization [facility] Address [address] [place] [address] Care Team Providers Care Social Work Msw Name Role Phone Bharati Soriano MD Primary Care Provider Becca Vasyl Vieira Jr Unavailable ALLERGIES Allergen (clinical drug ingredient) Drug/Non Drug Allergy documented on EMR Reaction Allergy Type Onset Date Status simvastatin Simvastatin Unknown Drug Allergy Act kellie Metoprolol Succinate Unknown Drug Allergy Active lisinopril Lisinopril Unknown Drug Allergy Activ e Aspir-81 Unknown Drug Allergy Active Non-steroidal anti-inflammatory agent (FN) NSAIDS (uncoded) Unknown Allergy Active REASON FOR REFERRAL No Information MEDICATIONS Medication SIG (Take, Route, Frequency, Duration) Notes Start Date End Date Status Imodium A-D 2 MG 1 capsule as needed Orally Four times a day Active ProAir HFA 108 (90 Base) MCG/ACT INHALE 2 PUFF BY INHALATION ROUTE EVERY 4 HOURS NEEDED FOR SHORTNESS OF BREATH Inhalation for 30 Active Omeprazole 20 MG TAKE ONE CAPSULE BY MOUTH EVERY DAY BEFORE A MEAL Oral for 90 Active amLODIPine Besylate 10 MG Oral for 90 Active Pravastatin Sodium 20 MG TAKE 1 TABLET B Y ORAL ROUTE EVERY EVENING Oral for 90 Active Losartan Potassium 25 MG Oral for 90 Active traZODone HCl 100 MG TAKE 1 TABLET BY MO UT EVERY DAY AT BEDTIME Oral for 90 Active Hydroxychloroquine Sulfate 2 00 MG TAKE 1 TABLET BY MOUTH TWICE A DAY WITH FOOD OR MILK Oral for 90 Active oxyCODONE-Acetaminophen 5-32 5 MG (Schedule II Drug) TAKE 1 TABLET EVERY 8 HOURS NEEDED Oral for 30 Active Alendronate Sodium 20 1 tablet Orally On ce a day Active Cozaar 25 MG 1 tablet Orally Once a day for 30 day(s) Active MiraLax (colon prep) 17 GM/SCOOP mixed with Gatorade or Crystal Light Orally begin at 5:00 p.m. the day before the procedure for 1 day 12/25/2021 Active Dulcolax (colon prep) 5 MG take at 3:00 p.m and 7:00p.m. Orally two tablets twice a day for one day for 1 day 12/25/2021 Active Tylenol Extra Strength 500 MG 1 tablet a s needed Orally every 6 hrs Active Colace 100 MG 1 capsule as needed Orally Once a day for 30 day(s) Active Albuterol Sulfate 108 (90 Base) MCG/ACT 2 puffs as needed Inhalation every 6 hrs Active Norvasc 2.5 MG 1 tablet Orally Once a day for 30 day(s) Active IMMUNIZATIONS Vaccine Route Administration Date Status Comme nts Influenza Unknown 02/13/2016 Administered Influenza Unknown 03/14/2018 Administered Influenza Unknown 03/26/2021 Administered SOCIAL HISTORY Tobacco Use: Social History Observation Description Date Details (start date - stop date) Never Smoker NA - NA Sex Assigned At : Social History Observation Description Sex Assigned At Unknown Tobacco Use/Smoking Question Answer Notes Patient is a nonsmoker Alcohol Screen Question Answer Notes Did you have a drink containing alcohol in the p ast year? No Points 0 Interpretation Negative PROBLEMS Problem Type ICD Code Onset Dates Problem Status W/U Status Risk SNOMED Code Notes Problem Colon cancer screening (Z12.11) Active confirmed 476789768 Problem Incontinence of feces, unspecified fecal incontinence type (R15.9) Active confirmed 07742633 Problem Radiation proctitis (K62.7) Active confirmed 242064630 Problem Gastroesophageal reflux disease without esophagitis (K21.9) Active confirmed 528602571 Problem 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) Active confirmed History of malignant neoplasm of rectum (337648663) Encounters Encounter Location Date Provider Diagnosis [facility] [address] [place] [address] 09/20/2023 Vasyl Boles Jr PLAN OF TREATMENT Future Test Test Name Order Date COLONOSCOPY 07/14/2018 COLONOSCOPY 12/25/2021 Insurance Providers Payer Name Payer Address Payer Phone Subscriber Number Group Number Insured Name Patient Relationship to Insured Coverage Start Date Coverage End Date MEDICARE OF [place] [address] [place] [address] [id number] PATT RENDON Self - patient is the insured MEDICAID OF [employer] [facility] [address] [place] [phone] [id number] PATT RENDON Self - patient is the insured MEDICAL (GENERAL) HISTORY Medical History History ICD Code hypertension 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
--- OUTSIDE RECORDS SUMMARY | 2024-07-11 16:36 | XMS_ITS | Encounter Summary ---
Author Organization [facility] Address [address] [place] [address] 7t [place] [address] Care Team Providers Care Lapidarist Name Role Phone Bharati Soriano MD Primary Care Provider [phone]- [phone] Vasyl Boles MD Unavailable [phone] Encounter Details Date Type Department Care Team (Late st Contact Info) Description 10/12/2022 Abstract [facility] MEDICINE [address] [place] [address] Bharati Soriano MD 230 [place] [address] Social History Tobacco Use Types Packs/Day Years [...] suspected to have Coronavirus/COVID-19? No / Unsure 10/15/2022 2:10 PM EDT documented as of this encounter Plan of Treatment Upcoming Encounters Date Type Department Care Team (Late st Contact Info) Description 07/12/2024 2:45 PM EST Office Visit [facility] MEDICINE [address] [place] [address] Bharati Soriano MD 230 [place] [address] 09/07/2024 1:00 PM EDT Office Visit [facility] ADULT DENTAL [address] [place] [address] Denzel, Elo 230 [place] [address] 09/19/2024 11:00 AM EDT Office Visit [facility] MEDICINE [address] [place] [address] documented as of this encounter Visit Diagnoses Not on filedocumented in this encounter Care Teams Lapidarist Relationship Specialty Start Date End Date Bharati Soriano MD [address] [place] [address] PCP - General Family Medicine 06/14/18 Vasyl Boles MD [address] [place] [address] [place] [phone] Gastroenterology 06/20/24 documented as of this encounter
--- OUTSIDE RECORDS SUMMARY | 2024-07-11 16:36 | XMS_ITS | Encounter Summary ---
Author Organization [employer] Address 75 [facility] 7t [place] [address] Care Team Providers Care Health Information Internship Name Role Phone Bharati Soriano MD Primary Care Provider [phone]- [phone] Reason for Visit * Reason Comments Med Refill Encounter Details Date Type Department Care Team ([facility] st Contact Info) Description 06/15/2024 Refill [facility] MEDICINE 230 [place], [place] [phone] Leena Verdin, ANP 230 [place], [place] [phone] Mild intermittent asthma, unspecified whether complicated; Chronic diarrhea Social History Tobacco Use Types [...] Upcoming Encounters Date Type Department Care Team ([facility] st Contact Info) Description 07/12/2024 2:45 PM EST Office Visit [facility] MEDICINE [address] [place] [address] Bharati Soriano MD [address] [place] [address] 09/07/2024 1:00 PM EDT Office Visit [facility] ADULT DENTAL [address] [place] [address] Denzel, Elo [address] [place] [address] 09/19/2024 11:00 AM EDT Office Visit [facility] MEDICINE [address] [place] [address] documented as of this encounter Visit Diagnoses Diagnosis Mild intermittent asthma, unspecified whether complicated Chronic diarrhea Diarrhea Other forms of systemic [...] documented as of this encounter Care Teams Health Information Internship Relationship Specialty Start Date End Date Bharati Soriano MD [address] [place] [address] PCP - General Family Medicine 06/14/18 documented as of this encounter
--- OUTSIDE RECORDS SUMMARY | 2024-07-11 16:36 | XMS_ITS | Encounter Summary ---
Author Organization [employer] Address 75 [facility] 7t [place] [address] Care Team Providers Care Dinkey Dispatcher Name Role Phone Bharati Soriano MD Primary Care Provider [phone]- [phone] Vasyl Boles MD Unavailable [phone] Reason for Visit * Reason Onset Date Comments requesting a call back 09/07/2022 Encounter Details Date Type Department Care Team (Late st Contact Info) Description 09/07/2022 Telephone [facility] MEDICINE 230 [place] [address] Bharati Soriano MD 230 [place] [address] requesting a call back Social History Tobacco Use Types Packs/Day Years [...] suspected to have Coronavirus/COVID-19? No / Unsure 08/20/2022 1:12 PM EST documented as of this encounter Miscellaneous Notes * Telephone Encounter - Mary Bailey - 09/07/2022 10:05 AM EDT Tc from pt requesting to speak with you. No details given . documented in this encounter Plan of Treatment Upcoming Encounters Date Type Department Care Team (Late st Contact Info) Description 07/12/2024 2:45 PM EST Office Visit [facility] MEDICINE 230 [place] [address] Bharati Soriano MD 230 [place] [address] 09/07/2024 1:00 PM EDT Office Visit [facility] ADULT DENTAL 230 [place], [place] [phone] Denzel, Elo 230 [place] [address] 09/19/2024 11:00 AM EDT Office Visit [facility] MEDICINE 230 [place] [address] documented as of this encounter Visit Diagnoses Not on filedocumented in this encounter Care Teams Dinkey Dispatcher Relationship Specialty Start Date End Date Bharati Soriano MD [address] [place] [address] PCP - General Family Medicine 06/14/18 Vasyl Boles MD [address] [place] [address] DONTE [facility] [place] [address] Gastroenterology 06/20/24 documented as of this encounter
--- OUTSIDE RECORDS SUMMARY | 2024-07-11 16:36 | XMS_ITS | Encounter Summary ---
Author Organization [facility] Address 75 [facility] 7t [place] [address] Care Team Providers Care Crew Caller Name Role Phone Bharati Soriano MD Primary Care Provider [phone]- [phone] Vasyl Boles MD Unavailable [phone] Reason for Visit * Reason Onset Date Comments Med Refill 06/01/2023 Encounter Details Date Type Department Care Team (Late st Contact Info) Description 06/01/2023 Telephone [facility] MEDICINE 230 [place] [address] Bharati Soriano MD 230 [place], [place] [phone] Med Refill Social History Tobacco Use Types [...] encounter Miscellaneous Notes * Telephone Encounter - Kimani Goode - 06/01/2023 12:18 PM EST Tc from patient requesting a medication refill for oxyCODONE-acetaminophen (Percocet) 5-325 MG tablet. documented in this encounter Plan of Treatment Upcoming Encounters Date Type Department Care Team (Late st Contact Info) Description 07/12/2024 2:45 PM EST Office Visit [facility] MEDICINE [address] [place] [address] Bharati Soriano MD [address] [place] [address] 09/07/2024 1:00 PM EDT Office Visit [facility] ADULT DENTAL 230 [place] [address] Denzel, Elo 230 [place] [address] 09/19/2024 11:00 AM EDT Office Visit [facility] MEDICINE [address] [place] [address] documented as of this encounter Visit Diagnoses Not on filedocumented in this encounter Additional Health Concerns Assessment Noted Time PHQ-9 Depression Total Score: 0 10/16/19 2:27 PM EDT documented as of this encounter Care Teams Crew Caller Relationship Specialty Start Date End Date Bharati Soriano MD [address] [place] [address] PCP - General Family Medicine 06/14/18 Vasyl Boles MD [address] [place] [address] [address] [place] [phone] Gastroenterology 06/20/24 documented as of this encounter
--- OUTSIDE RECORDS SUMMARY | 2024-07-11 16:36 | XMS_ITS | Encounter Summary ---
Author Organization [employer] Address 75 [facility] 7t [place] [address] Care Team Providers Care Director Dermatology Name Role Phone Bharati Soriano MD Primary Care Provider [phone]- [phone] Vasyl Boles MD Unavailable [phone] Reason for Visit * Reason Onset Date Comments Med Refill 03/03/2023 Encounter Details Date Type Department Care Team (Late st Contact Info) Description 03/03/[address] [facility] MEDICINE 230 [place] [address] Bharati Soriano MD 230 [place], [place] [phone] Med Refill Social History Tobacco Use Types [...] * Telephone Encounter - Jaun Moyer - 03/03/2023 11:11 AM EDT Tc from pt requesting a refill for oxyCODONE-acetaminophen (Percocet) 5-325 MG tablet documented in this encounter Plan of Treatment Upcoming Encounters Date Type Department Care Team (Late st Contact Info) Description 07/12/2024 2:45 PM EST Office Visit [facility] MEDICINE [address] [place] [address] Bharati Soriano MD 230 [place] [address] 09/07/2024 1:00 PM EDT Office Visit [facility] ADULT DENTAL [address] [place] [address] Elo Mahoney 230 [place] [address] 09/19/2024 11:00 AM EDT Office Visit [facility] MEDICINE [address] [place] [address] documented as of this encounter Visit Diagnoses Not on filedocumented in this encounter Additional Health Concerns Assessment Noted Time PHQ-9 Depression Total Score: 0 10/16/19 23 2:27 PM EDT documented as of this encounter Care Teams Director Dermatology Relationship Specialty Start Date End Date Bharati Soriano MD [address] [place] [address] PCP - General Family Medicine 06/14/18 Vasyl Boles MD [address] [place] [phone] Gastroenterology 06/20/24 documented as of this encounter
--- OUTSIDE RECORDS SUMMARY | 2024-07-11 16:36 | XMS_ITS | Encounter Summary ---
Author Organization [facility] [facility] Address [address] [place] [address] 7 [place] [address] Care Team Providers Care Strategy Execution Consultant Name Role Phone Bharati Soriano MD Primary Care Provider +1- [phone] Vasyl Boles MD Unavailable [phone] Encounter Details Date Type Department Care Team (Late st Contact Info) Description 08/11/2022 Abstract [facility] MEDICINE [address] [place] [address] [phone] Bahrati Soriano MD [address] [place] [address] [phone] Social History Tobacco Use Types Packs/Day Years [...] Description 07/12/2024 2:45 PM EST Office Visit [facility] MEDICINE [address] [place] [address] [phone] Bharati Soriano MD [address] [place] [address] [phone] 09/07/2024 1:00 PM EDT Office Visit [facility] ADULT DENTAL [address] [place] [address] [phone] Elo Mahoney 230 [place] [address] 09/19/2024 11:00 AM EDT Office Visit [facility] MEDICINE 230 [place] [address] documented as of this encounter Procedures Procedure Name Priority Date/Time Associated Diagnosis Comments PAP SMEAR Routine 03/14/2015 12:00 AM EDT documented in this encounter Results * Pap Smear (03/14/2015 12:00 AM EDT) Swab us Historical Provider LAB CYTOLOGY ORDERABLES F inal Result IMAGING documented in this encounter Visit Diagnoses Not on filedocumented in this encounter Care Teams Strategy Execution Consultant Relationship Specialty Start Date End Date Bharati Soriano MD 230 [place] [address] PCP - General Family Medicine 06/14/18 Vasyl Boles MD [address] [place] [address] [place] [phone] Gastroenterology 06/20/24 documented as of this encounter
--- OUTSIDE RECORDS SUMMARY | 2024-07-11 16:36 | XMS_ITS ---
Author Organization [facility] Address [address] [place] [address] Care Team Providers Care Bridge Inspector Name Role Phone Bharati Soriano MD Primary Care Provider Becca vailable Ramana Bates, Vasyl Unavailable REASON FOR VISIT script for diapers Encounters Encounter Location Date Provider Diagnosis [facility] [address] [place] [address] 09/20/2023 Vasyl Boles Jr PLAN OF TREATMENT No Information
--- OUTSIDE RECORDS SUMMARY | 2024-07-11 16:36 | XMS_ITS | Encounter Summary ---
Author Organization [employer] Address 75 [facility] 7t [place] [address] Care Team Providers Care Worship Pastor Name Role Phone Bharati Soriano MD Primary Care Provider [phone]- [phone] Vasyl Boles MD Unavailable [phone] Encounter Details Date Type Department Care Team (Late st Contact Info) Description 07/11/2024 11:00 AM EST Office Visit [facility] MEDICINE 230 [place] [address] Chronic low back pain, unspecified back pain laterality, unspecified whether sciatica present (Primary Dx); Long-term current use of opiate analgesic Social History Tobacco Use Types Packs/Day Years [...] Description 07/12/2024 2:45 PM EST Office Visit [facility] MEDICINE [address] [place] [address] Bharati Soriano MD [address] [place] [address] 09/07/2024 1:00 PM EDT Office Visit [facility] ADULT DENTAL [address] [place] [address] Al Mahoneyaris [address] [place] [address] 09/19/2024 11:00 AM EDT Office Visit [facility] MEDICINE [address] [place] [address] Scheduled Orders Name Type Priority Associated Diagnoses Orde r Schedule Drug Toxicology Monitoring Buprenorphine, with Confirmation, Urine Lab Routine Chronic low back pain, unspecified back pain laterality, unspecified whether sciatica present Ordered: 07/11/2024 Drug Monitoring, Benzodiazepines, Quantitative, Urine Lab Routine Chronic low back pain, unspecified back pain laterality, unspecified whether sciatica present Ordered: 07/11/2024 documented as of this encounter Procedures Procedure Name Priority Date/Time Associated Diagnosis Comments POCT MADHU-14 URINE DRUG SCREEN Routine 07/11/2024 1:39 PM EST Chronic low back pain, unspecified back pain laterality, unspecified whether sciatica present documented in this encounter Results * (ABNORMAL) POCT MADHU-14 Urine Drug Screen (07/11/2024 1:39 PM EST) Benzodiazepines Screen, Urine Positive Buprenophine Screen, Urine Positive Oxycodone Screen, Urine Positive Urine Urine specimen obtained by clean catch procedure / Unknown 07/11/2024 1:39 PM EST Mily Alfredo TARRING MACHINE OPERATOR POINT OF CARE TEST ENTER/EDIT ORDERABLES Final Result documented in this encounter Visit Diagnoses Diagnosis Chronic low back pain, unspecified back pain laterality, unspecified whether sciatica present- Primary Long-term current use of opiate analgesic Encounter for long-term (current) use of other medications Other forms of systemic lupus erythematosus, unspecified [...] documented as of this encounter Care Teams Worship Pastor Relationship Specialty Start Date End Date Bharati Soriano MD [address] [place] [address] PCP - General Family Medicine 06/14/18 Vasyl Boles MD [address] [place] [phone] Gastroenterology 06/20/24 documented as of this encounter
--- OUTSIDE RECORDS SUMMARY | 2024-07-11 16:36 | XMS_ITS | Encounter Summary ---
Author Organization [employer] Address [address] [place] [address] 7t [place] [address] Care Team Providers Care Application Coordinator Name Role Phone Bharati Soriano MD Primary Care Provider [phone]- [phone] Vasyl Boles MD Unavailable [phone] Reason for Visit * Reason Onset Date Comments Other 11/03/2022 Encounter Details Date Type Department Care Team (Late st Contact Info) Description 11/03/2022 Telephone [facility] MEDICINE 230 [place], [place] [phone] Bharati Soriano MD 230 [place], [place] [phone] Other Social History Tobacco Use Types Packs/Day Years [...] Miscellaneous Notes * Telephone Encounter - Mary Carmen Levi - 11/03/2022 12:21 PM EDT Tc from patient returning call back, advertising copy writer didn't see any notes. documented in this encounter Plan of Treatment Upcoming Encounters Date Type Department Care Team (Late st Contact Info) Description 07/12/2024 2:45 PM EST Office Visit [facility] MEDICINE 230 [place] [address] Bharati Soriano MD 230 [place] [address] 09/07/2024 1:00 PM EDT Office Visit [facility] ADULT DENTAL 230 [place] [address] Denzel, Elo [address] [place] [address] 09/19/2024 11:00 AM EDT Office Visit [facility] MEDICINE 230 [place] [address] documented as of this encounter Visit Diagnoses Not on filedocumented in this encounter Additional Health Concerns Assessment Noted Time PHQ-9 Depression Total Score: 0 10/16/19 2:27 PM EDT documented as of this encounter Care Teams Application Coordinator Relationship Specialty Start Date End Date Bharati Soriano MD [address] [place] [address] PCP - General Family Medicine 06/14/18 Vasyl Boles MD [address] [place] [address] [place] [phone] Gastroenterology 06/20/24 documented as of this encounter
--- OUTSIDE RECORDS SUMMARY | 2024-07-11 16:36 | XMS_ITS | Encounter Summary ---
Author Organization [employer] Address 75 [facility] 7t [place] [address] Care Team Providers Care Toaster Operator Name Role Phone Bharati Soriano MD Primary Care Provider [phone]- [phone] Vasyl Boles MD Unavailable [phone] Reason for Visit * Reason Onset Date Comments Med Refill 02/01/2024 Encounter Details Date Type Department Care Team (Late st Contact Info) Description 02/01/2024 Telephone [facility] MEDICINE 230 [place], [place] [phone] Bharati Soriano MD 230 [place], [place] [phone] Med Refill Social History Tobacco Use Types [...] Recorded Patient Health Questionnaire-2 Score 1 01/14/2024 Comments Unknown Sex and Gender Information Value Date Recorded Sex Assigned at Female 04/13/2022 10:14 AM EDT Legal Sex Female 10:14 AM EDT Gender Identity Female 04/13/2022 10:14 AM EDT Sexual Orientation Straight 04/13/2022 10 :14 AM EDT documented as of this encounter Miscellaneous Notes * Telephone Encounter - Kelechi Loyd - 02/01/2024 11:31 AM EDT TC from pt requesting medication refill. Medications needing refill: oxyCODONE-acetaminophen (Percocet) 5-325 MG tablet To be sent to: [facility]/pharmacy #[id number] [place] [address] documented in this encounter Plan of Treatment Upcoming Encounters Date Type Department Care Team (Late st Contact Info) Description 07/12/2024 2:45 PM EST Office Visit [facility] MEDICINE [address] [place] [address] Bharati Soriano MD [address] [place] [address] 09/07/2024 1:00 PM EDT Office Visit [facility] ADULT DENTAL [address] [place] [address] Elo Mahoney 230 [place] [address] 09/19/2024 11:00 AM EDT Office Visit [facility] MEDICINE [address] [place] [address] documented as of this encounter Visit Diagnoses Not on filedocumented in this encounter Additional Health Concerns Assessment Noted Time PHQ-9 Depression Total Score: 1 01/14/20 24 10:00 AM EDT documented as of this encounter Care Teams Toaster Operator Relationship Specialty Start Date End Date Bharati Soriano MD 230 [place] [address] PCP - General Family Medicine 06/14/18 Vasyl Boles MD [address] [place] [phone] Gastroenterology 06/20/24 documented as of this encounter
--- OUTSIDE RECORDS SUMMARY | 2024-07-11 16:36 | XMS_ITS | Encounter Summary ---
Author Organization [employer] Address [address] [place] [address] 7t [place] [address] Care Team Providers Care Club Director Name Role Phone Bharati Soriano MD Primary Care Provider +1- [phone] Vasyl Boles MD Unavailable [phone] Reason for Visit * Reason Comments Med Change Request Encounter Details Date Type Department Care Team (Late st Contact Info) Description 09/08/2022 Refill [facility] MEDICINE [address] [place] [address] Bharati Soriano MD 230 [place] [address] Social History Tobacco Use Types Packs/Day Years [...] encounter Miscellaneous Notes * Telephone Encounter - Joan Pickens - 09/08/2022 3:56 PM EDT Called pharmacy pt all set no PA needed * Telephone Encounter - Dominga Ibarra RN - 09/08/2022 1:44 PM EDT Return TC to pt , no answer. Message left requesting call back. documented in this encounter Plan of Treatment Upcoming Encounters Date Type Department Care Team (Late st Contact Info) Description 07/12/2024 2:45 PM EST Office Visit [facility] MEDICINE [address] [place] [address] Bharati Soriano MD [address] [place] [address] 09/07/2024 1:00 PM EDT Office Visit [facility] ADULT DENTAL [address] [place] [address] Elo Mahoney [address] [place] [address] 09/19/2024 11:00 AM EDT Office Visit [facility] MED[facility]INE [address] [place] [address] documented as of this encounter Visit Diagnoses Not on filedocumented in this encounter Care Teams Club Director Relationship Specialty Start Date End Date Bharati Soriano MD [address] [place] [address] PCP - General Family Medicine 06/14/18 Vasyl Boles MD [address] [place] [address] [place] [phone] Gastroenterology 06/20/24 documented as of this encounter
--- OUTSIDE RECORDS SUMMARY | 2024-07-11 16:36 | XMS_ITS | Encounter Summary ---
Author Organization [employer] Address 75 [facility] 7t [place] [address] Care Team Providers Care Build Master Name Role Phone Bharati Soriano MD Primary Care Provider [phone]- [phone] Vasyl Boles MD Unavailable Reason for Visit * Reason Onset Date Comments chartprep 07/11/2024 Encounter Details Date Type Department Care Team (Late st Contact Info) Description 07/11/2024 Telephone [facility] MEDICINE 230 [place] [address] Isaura Goode MA chartprep Social History Tobacco Use Types Packs/Day Years [...] encounter Miscellaneous Notes * Telephone Encounter - Isaura Goode MA - 07/11/2024 1:56 PM EST Chart Prep Labs: done Images: done Vaccines due: Covid Due, Flu Due, and RSV in Pharmacy Due Referrals: Not Applicable Screenings: Not Applicable Overdue care gaps: None documented in this encounter Plan of Treatment Upcoming Encounters Date Type Department Care Team (Late st Contact Info) Description 07/12/2024 2:45 PM EST Office Visit [facility] MEDICINE [address] [place] [address] Bharati Soriano MD 230 [place] [address] 09/07/2024 1:00 PM EDT Office Visit [facility] ADULT DENTAL [address] [place] [address] Elo Mahoney 230 [place] [address] 09/19/2024 11:00 AM EDT Office Visit [facility] MEDICINE [address] [place] [address] documented as of this encounter Visit Diagnoses Not on filedocumented in this encounter Additional Health Concerns Assessment Noted Time PHQ-9 Depression Total Score: 1 01/14/20 24 10:00 AM EDT documented as of this encounter Care Teams Build Master Relationship Specialty Start Date End Date Bharati Soriano MD [address] [place] [address] PCP - General Family Medicine 06/14/18 Vasyl Boles MD [address] [place] [phone] Gastroenterology 06/20/24 documented as of this encounter
--- OUTSIDE RECORDS SUMMARY | 2024-07-11 16:36 | XMS_ITS | Encounter Summary ---
Author Organization [employer] Address [address] [facility] 7t [place] [address] Care Team Providers Care Telephone Ad Taker Name Role Phone Bharati Soriano MD Primary Care Provider +1- [phone] Vasyl Boles MD Unavailable [phone] Reason for Visit * Reason Onset Date Comments Med Refill 05/03/2023 Encounter Details Date Type Department Care Team (Late st Contact Info) Description 05/03/2023 Telephone [facility] MEDICINE [address] [place], [place] [phone] Bharati Soriano MD 230 [place], [place] [phone] Med Refill Social History Tobacco Use Types [...] * Telephone Encounter - Kelechi Loyd - 05/03/2023 12:13 PM EST Tc from pt requesting a med refill for oxyCODONE-acetaminophen (Percocet) 5-325 MG tablet. documented in this encounter Plan of Treatment Upcoming Encounters Date Type Department Care Team (Late st Contact Info) Description 07/12/2024 2:45 PM EST Office Visit [facility] MEDICINE [address] [place] [address] Bharati Soriano MD 230 [place] [address] 09/07/2024 1:00 PM EDT Office Visit [facility] ADULT DENTAL [address] [place] [address] Denzel, Elo [address] [place] [address] 09/19/2024 11:00 AM EDT Office Visit [facility] MEDICINE [address] [place] [address] documented as of this encounter Visit Diagnoses Not on filedocumented in this encounter Additional Health Concerns Assessment Noted Time PHQ-9 Depression Total Score: 0 10/16/19 23 2:27 PM EDT documented as of this encounter Care Teams Telephone Ad Taker Relationship Specialty Start Date End Date Bharati Soriano MD [address] [place] [address] PCP - General Family Medicine 06/14/18 Vasyl Boles MD [address] [place] [address] [address] DONTE [address] [place] [phone] Gastroenterology 06/20/24 documented as of this encounter
--- OUTSIDE RECORDS SUMMARY | 2024-07-11 16:36 | XMS_ITS | Encounter Summary ---
Author Organization [employer] Address [address] [place] [address] 7 [place] [address] Care Team Providers Care Rn Spine Name Role Phone Bharati Soriano MD Primary Care Provider +1- [phone] Vasyl Boles MD Unavailable [phone] Reason for Visit * Reason Onset Date Comments Medication Question 06/12/2022 Encounter Details Date Type Department Care Team ([facility] st Contact Info) Description 06/12/2022 Telephone [facility] MEDICINE 230 [place], [place] [phone] Bharati Soriano MD 230 [place], [place] [phone] Medication Question Social History Tobacco Use Types Packs/Day Years [...] * Telephone Encounter - Mary Bailey - 06/12/2022 9:40 AM EST TC from pt checking status on med oxy . i do see med was sent on the to a place in [place] . Ptstates [facility] . Pt would like to know if she will be able to get meds before the long weekend ? documented in this encounter Plan of Treatment Upcoming Encounters Date Type Department Care Team (Late st Contact Info) Description 07/12/2024 2:45 PM EST Office Visit [facility] MEDICINE [address] [place] [address] Bharati Soriano MD [address] [place] [address] 09/07/2024 1:00 PM EDT Office Visit [facility] ADULT DENTAL [address] [place] [address] Denzel, Elo 230 [place] [address] 09/19/2024 11:00 AM EDT Office Visit [address] [address] documented as of this encounter Visit Diagnoses Diagnosis Pain Generalized pain Other forms of systemic lupus erythematosus, unspecified organ involvement status (CMS/HCC) Chronic type B viral hepatitis (CMS/HCC) Viral hepatitis B without mention of hepatic coma, chronic, without mention of hepatitis delta Dietary counseling Dietary surveillance and counseling Exercise counseling documented in this encounter Care Teams Rn Spine Relationship Specialty Start Date End Date Bharati Soriano MD [address] [place] [address] PCP - General Family Medicine 06/14/18 Vasyl Boles MD [address] [place] [address] DR DONTE [address] [place] [phone] Gastroenterology 06/20/24 documented as of this encounter
--- OUTSIDE RECORDS SUMMARY | 2024-07-11 16:36 | XMS_ITS | Encounter Summary ---
Author Organization [employer] Address 75 [facility] 7t [place] [address] Care Team Providers Care Lead Technical Architect Name Role Phone Bharati Soriano MD Primary Care Provider +1- [phone] Vasyl Boles MD Unavailable [phone] Encounter Details Date Type Department Care Team ([facility] st Contact Info) Description 01/04/2024 Orders Only [facility] MEDICINE 230 [place] [address] Hortencia Beard, JÚNIOR 230 [place] [address] Pain Social History Tobacco Use Types Packs/Day Years Used Date Smoking Tobacco: Never Passive Smoke Exposure: Never Smokeless Tobacco: Never Depression Answer Date Recorded Patient Health Questionnaire-9 Score 2 12/22/2023 Patient Health Questionnaire-9 Score 2 12/22/2023 Last PHQ-9: Questionnaire Data Not on file 0 12/22/2023 Housing Stability Answer Date Recorded What is [...] Answer Date Recorded Patient Health Questionnaire-2 Score 2 12/22/2023 Comments Unknown Sex and Gender Information Value [...] 2:45 PM EST Office Visit [facility] MEDICINE [address] [place] [address] Bharati Soriano MD [address] [place] [address] [phone] 09/07/2024 1:00 PM EDT Office Visit [facility] ADULT DENTAL [address] [place] [address] Denzel, Elo [address] [place] [address] 09/19/2024 11:00 AM EDT Office Visit [facility] MEDICINE [address] [place] [address] Scheduled Orders Name Type Priority Associated Diagnoses Orde r Schedule Drug Monitoring, Benzodiazepines, Quantitative, Urine Lab Routine Pain Expected: 01/04/2024 (Approximate), Expires: 01/03/2025 documented as of this encounter Procedures Procedure Name Priority Date/Time Associated Diagnosis Comments DRUG MONITORING, BENZODIAZEPINES, QUANTITATIVE, URINE Routine 01/04/2024 11:23 AM EDT Pain documented in this encounter Results * Drug Monitoring, Benzodiazepines, Quantitative, Urine (01/04/2024 11:23 AM EDT) Nordiazepam, GCMS Urine NEGATIVE [facility] Oxazepam, GCMS Urine NEGATIVE [facility] Lorazepam GCMS Urine NEGATIVE [facility] Alprazolam, GCMS Urine NEGATIVE [facility] Alphahydroxytriazolam, GCMS Ur NEGATIVE [facility] Temazepam, GCMS Urine NEGATIVE [facility] Alphahydroxymidazolam,GC MS Ur NEGATIVE [facility] Aminoclonazepam, GCMS Urine NEGATIVE [facility] Flurazepam Metabolite,GCMS Ur NEGATIVE [facility] Benzodiazepines Comments SEE NOTE [facility] Comment:This drug testing is for medical treatment only.Analysis was performed as non-forensic testing andthese results should be used only by healthcareproviders to render diagnosis or treatment, or tomonitor progress of medical conditions.LDT Notes:Confirmation tests were developed and their analyticalperformance characteristics have been determined by[employer]. It has not been cleared or approvedby the FDA. This assay has been validated pursuant tothe CLIA regulations and is used for clinical purposes.Healthcare Providers needing Interpretation assistance,please contact us at [phone] ( )M-F, 8am to 10pm ESTTHIS TEST PERFORMED AT:[employer] [address] [phone] DIRECTOR: VAUGHN BAUTISTA MD 01/04/2024 11:2 3 AM EDT 01/04/2024 1:53 PM EDT Mily [facility]IV[facility] URINE ORDERABLES Final Res ult [facility] [address] [place] [address] [phone] documented in this encounter Visit Diagnoses Diagnosis Pain Generalized pain Other forms of systemic lupus erythematosus, unspecified organ involvement status (CMS/HCC) Chronic type B viral hepatitis (CMS/HCC) Viral hepatitis B without mention of hepatic coma, chronic, without mention of hepatitis delta Dietary counseling Dietary surveillance and counseling Exercise counseling documented in this encounter Additional Health Concerns Assessment Noted Time PHQ-9 Depression Total Score: 2 12/22/19 24 2:00 PM EDT documented as of this encounter Care Teams Lead Technical Architect Relationship Specialty Start Date End Date Bharati Soriano MD [address] [place] [address] PCP - General Family Medicine 06/14/18 Vasyl Boles MD [address] [place] [phone] Gastroenterology 06/20/24 documented as of this encounter
--- OUTSIDE RECORDS SUMMARY | 2024-07-11 16:37 | XMS_ITS | Encounter Summary ---
Author Organization [employer] Address 75 [facility] 7t [place] [address] Care Team Providers Care Canteen Attendant Name Role Phone Bharati Soriano MD Primary Care Provider +1- [phone] Vasyl Boles MD Unavailable [phone] Reason for Visit * Reason Comments Med Refill Encounter Details Date Type Department Care Team (Late st Contact Info) Description 05/10/2024 Refill [facility] MEDICINE 230 [place] [address] Bharati Soriano MD [address] [place] [address] Dyslipidemia; Other osteoporosis without current pathological fracture; Mild intermittent asthma, unspecified whether complicated Social History Tobacco Use Types Packs/Day Years Used Date Smoking Tobacco: Never Passive Smoke Exposure: Never Smokeless Tobacco: Never Depression Answer Date Recorded Patient Health Questionnaire-9 Score 1 01/14/2024 Patient Health Questionnaire-9 Score 1 01/14/2024 Last PHQ-9: Questionnaire Data Not on file 0 01/14/2024 Housing Stability Answer Date Recorded What is your housing situation today? I have anitacuong anaya 12/22/[address] you [...] Office Visit [facility] MEDICINE [address] [place] [address] Bharati Soriano MD 230 [place] [address] 09/07/2024 1:00 PM EDT Office Visit [facility] ADULT DENTAL [address] [place] [address] Elo Mahoney [address] [place] [address] 09/19/2024 11:00 AM EDT Office Visit [facility] MEDICINE [address] [place] [address] documented as of this encounter Visit Diagnoses Diagnosis Dyslipidemia Other and unspecified hyperlipidemia Other osteoporosis without current pathological fracture Mild intermittent asthma, unspecified whether complicated Other forms of systemic lupus erythematosus, unspecified [...] documented as of this encounter Care Teams Canteen Attendant Relationship Specialty Start Date End Date Bharati Soriano MD [address] [place] [address] PCP - General Family Medicine 06/14/18 Vasyl Boles MD [address] [place] [phone] Gastroenterology 06/20/24 documented as of this encounter
--- OUTSIDE RECORDS SUMMARY | 2024-07-11 16:37 | XMS_ITS | Encounter Summary ---
Author Organization [employer] Address 75 [facility] 7t [place] [address] Care Team Providers Care Pulmonology Physician Name Role Phone Bharati Soriano MD Primary Care Provider [phone]- [phone] Vasyl Boles MD Unavailable [phone] Reason for Visit * Reason Onset Date Comments Med Refill 05/03/2024 Encounter Details Date Type Department Care Team (Late st Contact Info) Description 05/03/2024 Telephone [facility] MEDICINE [address] [place] [address] Bharati Soriano MD 230 [place], [place] [phone] Med Refill Social History Tobacco Use Types Packs/Day Years Used Date Smoking Tobacco: Never Passive Smoke Exposure: Never Smokeless Tobacco: Never Depression Answer Date Recorded Patient Health Questionnaire-9 Score 1 01/14/2024 Patient Health Questionnaire-9 Score 1 01/14/2024 Last PHQ-9: Questionnaire Data Not on file 0 01/14/2024 Housing Stability Answer Date Recorded What is your housing situation today? I have anita anyaa 12/22/[address] you li [...] encounter Miscellaneous Notes * Telephone Encounter - Suresh James - 05/03/2024 10:32 AM EST TC from pt requesting medication refill. Medications needing refill : oxyCODONE-acetaminophen (Percocet) 5-325 MG tablet To be sent to: [facility]/pharmacy [address] [place] [address] - [address] [place] [address] documented in this encounter Plan of Treatment Upcoming Encounters Date Type Department Care Team (Late st Contact Info) Description 07/12/2024 2:45 PM EST Office Visit [facility] MEDICINE [address] [place] [address] Bharati Soriano MD [address] [place] [address] 09/07/2024 1:00 PM EDT Office Visit [facility] ADULT DENTAL [address] [place] [address] Elo Mahoney 230 [place] [address] 09/19/2024 11:00 AM EDT Office Visit [facility] MEDICINE [address] [place] [address] documented as of this encounter Visit Diagnoses Not on filedocumented in this encounter Additional Health Concerns Assessment Noted Time PHQ-9 Depression Total Score: 1 01/14/20 24 10:00 AM EDT documented as of this encounter Care Teams Pulmonology Physician Relationship Specialty Start Date End Date Bharati Soriano MD [address] [place] [address] PCP - General Family Medicine 06/14/18 Vasyl Boles MD [address] [place] [phone] Gastroenterology 06/20/24 documented as of this encounter
--- OUTSIDE RECORDS SUMMARY | 2024-07-11 16:37 | XMS_ITS | Encounter Summary ---
Author Organization [employer] [facility] Address [address] [place] [address] 7 [place] [address] Care Team Providers Care Forming Acid Dumper Name Role Phone Bharati Soriano MD Primary Care Provider [phone]- [phone] Vasyl Boles MD Unavailable [phone] Encounter Details Date Type Department Care Team (Latest Contact Info) Description 08/23/2019 Abstract [facility] CONVERSIONS Dental, Provider, DDS Social History [...] 07/12/2024 2:45 PM EST Office Visit [facility] MEDICINE [address] [place] [address] Bharati Soriano MD 230 [place] [address] 09/07/2024 1:00 PM EDT Office Visit [facility] ADULT DENTAL [address] [place] [address] Elo Mahoney 230 [place] [address] 09/19/2024 11:00 AM EDT Office Visit [facility] MEDICINE [address] [place] [address] documented as of this encounter Visit Diagnoses Not on filedocumented in this encounter Care Teams Forming Acid Dumper Relationship Specialty Start Date End Date Bharati Soriano MD [address] [place] [address] [place] [address] PCP - General Family Medicine 06/14/18 Vasyl Boles MD [address] [place] [address] [address] [place] [phone] Gastroenterology 06/20/24 documented as of this encounter
[2024-07-14 10:55] LABS: Buprenorphine NEGATIVE; Naloxone NEGATIVE; Norbuprenorphine NEGATIVE
[2024-07-14 10:57] LABS: Alphahydroxymidazolam,GCMS Ur NEGATIVE; Alphahydroxytriazolam, GCMS Ur NEGATIVE; Alprazolam, GCMS Urine NEGATIVE; Aminoclonazepam, GCMS Urine NEGATIVE; Flurazepam Metabolite,GCMS Ur NEGATIVE; Lorazepam GCMS Urine NEGATIVE; Nordiazepam, GCMS Urine NEGATIVE; Oxazepam, GCMS Urine NEGATIVE; Temazepam, GCMS Urine NEGATIVE
== END 2024-07-11 11:31 | disposition home or self-care (01) ==
LOC: HO.LNP 11:30
PROVIDERS: Visit Provider Registered Nurse
DX: M54.50 Low back pain, unspecified (principal); G89.29 Other chronic pain
CPT/HCPCS: 80346; 80348; 80362

== ENCOUNTER 2024-08-09 08:19 | Outpatient (REF) | payer MEDICARE, MEDICAID, SELFPAY ==
--- NOTE | ~2024-08-09 | US_ITS ---
EXAMINATION: US ABDOMEN HISTORY: hx chronic hep B TECHNIQUE: Real-time grayscale ultrasound imaging of the abdomen was performed and images were reviewed. COMPARISON: Correlation is made with a CT of the abdomen dated 05/13/2019. FINDINGS: Liver: The right lobe of the liver measures 12.4 cm in size. The left lobe of the liver measures 8.9 cm in size. The liver demonstrates normal homogeneous echotexture. No focal mass or intrahepatic biliary ductal dilatation is identified. There is normal hepatopedal flow in the portal vein. Gallbladder and biliary tree: The gallbladder is unremarkable, without evidence of calculi, wall thickening, or pericholecystic fluid. There is no sonographic Aguilar sign. The common bile duct is normal in caliber measuring 3 mm. Kidneys: The right kidney measures 9.0 cm in length. The left kidney measures 9.6 cm in length. The kidneys are unremarkable, without evidence of masses, hydronephrosis, or calculi. Pancreas: The pancreatic head, neck, and body are unremarkable. The pancreatic tail is obscured by bowel gas. Spleen: The spleen is normal in size and contour, measuring 7.7 cm in length. Abdominal aorta and inferior vena cava: The visualized portions of the abdominal aorta and inferior vena cava are normal in caliber. There is no free fluid in the abdomen. US/US abdomen complete IMPRESSION: Unremarkable abdominal ultrasound. Electronically signed by: Babak Mccrary MD 08/09/2024 10:04 AM EST
--- OUTSIDE RECORDS SUMMARY | 2024-08-09 08:43 | XMS_ITS | Encounter Summary ---
Author Organization [employer] Address [address] [place] [address] 7 [place] [address] Care Team Providers Care Casing Tester Name Role Phone Bharati Soriano MD Primary Care Provider [phone]- [phone] Vasyl Boles MD Unavailable [phone] Reason for Visit * Reason Onset Date Comments Medication Question 06/12/2022 Encounter Details Date Type Department Care Team ([facility] st Contact Info) Description 06/12/2022 Telephone [facility] MEDICINE 230 [place], [place] [phone] Bharati Soriano MD 230 [place], [place] [phone] Medication Question Social History Tobacco Use Types [...] sent on the to a place in [place] . Ptstates [facility] . Pt would like to know if she will be able to get meds before the long weekend ? documented in this encounter Plan of Treatment Upcoming Encounters Date Type Department Care Team (Late st Contact Info) Description 09/07/2024 1:00 PM EDT Office Visit [facility] ADULT DENTAL 230 [place] [address] Elo Mahoney 230 [place] [address] 09/19/2024 11:00 AM EDT Office Visit [facility] MEDICINE 230 [place] [address] documented as of this encounter Visit Diagnoses Diagnosis Pain Generalized pain documented in this encounter Care Teams Casing Tester Relationship Specialty Start Date End Date Bharati Soriano MD [address] [place] [address] PCP - General Family Medicine 06/14/18 Vasyl Boles MD [address] [place] [address] [place] [phone] Gastroenterology 06/20/24 documented as of this encounter
--- OUTSIDE RECORDS SUMMARY | 2024-08-09 08:43 | XMS_ITS | Encounter Summary ---
Author Organization [employer] Address 75 [facility] 7t [place] [address] Care Team Providers Care Extended Insurance Clerk Name Role Phone Bharati Soriano MD Primary Care Provider [phone]- [phone] Vasyl Boles MD Unavailable [phone] Reason for Visit * Reason Onset Date Comments chartprep 07/11/2024 Encounter Details Date Type Department Care Team (Late st Contact Info) Description 07/11/2024 Telephone [facility] MEDICINE 230 [place] [address] Isaura Goode MA chartprep Social History Tobacco [...] Description 09/07/2024 1:00 PM EDT Office Visit [facility] ADULT DENTAL 230 [place] [address] DenzelAlElo 230 [place] [address] 09/19/2024 11:00 AM EDT Office Visit [facility] MEDICINE [address] [place] [address] documented as of this encounter Visit Diagnoses Not on filedocumented in this encounter Additional Health Concerns Assessment Noted Time PHQ-9 Depression Total Score: 1 01/14/20 24 10:00 AM EDT documented as of this encounter Care Teams Extended Insurance Clerk Relationship Specialty Start Date End Date Bharati Soriano MD 230 [place] [address] PCP - General Family Medicine 06/14/18 Vasyl Boles MD [address] [place] [address] [address] [place] [address] Gastroenterology 06/20/24 documented as of this encounter
--- OUTSIDE RECORDS SUMMARY | 2024-08-09 08:43 | XMS_ITS | Encounter Summary ---
Author Organization [employer] Address [address] [place] [address] 7 [place] [address] Care Team Providers Care Traffic Operations Manager Name Role Phone Bharati Soriano MD Primary Care Provider [phone]- [phone] Vasyl Boles MD Unavailable [phone] Encounter Details Date Type Department Care Team (Late st Contact Info) Description 06/12/2022 Orders Only [facility] MED & PEDS [address] [place], [place] [phone] Leena Verdin ANP 230 [place] [address] Social History Tobacco Use Types Packs/Day Years [...] Description 09/07/2024 1:00 PM EDT Office Visit [facility] ADULT DENTAL 230 [place], [place] [phone] Denzel, Elo 230 [place] [address] 09/19/2024 11:00 AM EDT Office Visit [facility] MEDICINE 230 [place] [address] documented as of this encounter Visit Diagnoses Not on filedocumented in this encounter Care Teams Traffic Operations Manager Relationship Specialty Start Date End Date Bharati Soriano MD [address] [place] [address] PCP - General Family Medicine 06/14/18 Vasyl Boles MD [address] [place] [address] [place] [phone] Gastroenterology 06/20/24 documented as of this encounter
--- OUTSIDE RECORDS SUMMARY | 2024-08-09 08:43 | XMS_ITS | Encounter Summary ---
Author Organization [facility] Address [address] [place] [address] Care Team Providers Care Web Press Operator Assistant Name Role Phone Bharati Soraino MD Primary Care Provider [phone] Vasyl Boles MD Unavailable [phone] Encounter Details Date Type Department Care Team [...] Description 09/07/2024 1:00 PM EDT Office Visit [facility] AD[facility] D[facility]AL [address] [place] [address] Al Mahoneyaris [address] [place] [address] 09/19/2024 11:00 AM EDT Office Visit [facility] MEDICINE [address] [place] [address] documented as of this encounter Visit Diagnoses Not on filedocumented in this encounter Additional Health Concerns Assessment Noted Time PHQ-9 Depression Total Score: 1 01/14/20 24 10:00 AM EDT documented as of this encounter Care Teams Web Press Operator Assistant Relationship Specialty Start Date End Date Bharati Soriano MD [address] [place] [address] PCP - General Family Medicine 06/14/18 Vasyl Boles MD [address] [place] [id number] Gastroenterology 06/20/24 documented as of this encounter
--- OUTSIDE RECORDS SUMMARY | 2024-08-09 08:43 | XMS_ITS | Clinical Summary ---
Author Organization [employer] Address [address] [place] [address] [address] [place] [address] Care Team Providers Care Subway Repair Supervisor Name Role Phone Bharati Soriano MD Primary Care Provider [phone] Vasyl Boles MD Unavailable [phone] Allergies Active Allergy Reactions Criticality Noted Date [...] EVERY DAY 90 tablet 3 024 Active levothyroxine (Synthroid, Levoxyl) 25 MCG tabletIndications [...] NEEDED FOR DIARRHEA. 30 capsule 025 Active clotrimazole (Lotrimin) 1 % vaginal creamIndications: Vulvovaginal Candidiasis Insert one applicator per vagina at bedtime for 7 nights 45 g 025 Active lidocaine (Lidoderm) 5 % patchIndications: Chronic low back pain, unspecified back pain laterality, unspecified whether sciatica present Apply 1 patch topically Once per day. Remove & discard patch within 12 hours or as directed by MD. 15 patch 2 025 Active losartan (Cozaar) 25 MG tabletIndications :Primary hypertension,Set Designer mayte renal impairment, stage 2 (mild) Take 1 tablet (25 mg) by mouth 2 times daily. 90 tablet 3 025 Active oxyCODONE-acetami nophen (Percocet) 5-325 MG tabletIndications :Pain Take 1 tablet by mouth every 6 (six) hours if needed for severe pain. 84 tablet 025 Active losartan (Cozaar) 25 MG tabletIndications :Primary hypertension,Set Designer mayte renal impairment, stage 2 (mild) Take 1 tablet by mouth in the morning. 021 2024 Discontinued(R eorder (will not trigger notification to Pharmacy)) alendronate (Fosamax) 70 MG tabletIndications :Other osteoporosis without current pathological fracture Take 70 mg by mouth. 019 2024 Discontinued(M ed list cleanup (will not trigger notification to Pharmacy)) oxyCODONE-acetami nophen (Percocet) 5-325 MG tabletIndications :Pain Take 1 tablet by mouth every 6 (six) hours if needed for severe pain for up to 28 days. 84 tablet 025 2024 Discontinued(R eorder (will not trigger notification to Pharmacy)) phenazopyridine (Pyridium) 100 MG tabletIndications :Bladder Mucosa Irritation Take 1 tablet (100 mg) by mouth if needed in the morning, at noon, and at bedtime for bladder spasms for up to 2 days. 6 tablet 025 2024 carbamide peroxide (Debrox) 6.5 % otic solutionIndicatio ns:Impacted cerumen of right ear Administer 5-10 drops into affected ear(s) 2 times daily for 4 days. 30 mL 025 2024 losartan (Cozaar) 25 MG tabletIndications :Primary hypertension,Set Designer mayte renal impairment, stage 2 (mild) Take 1 tablet (25 mg) by mouth Once per day. 90 tablet 3 025 2024 Discontinued(R eorder (will not trigger notification to Pharmacy)) losartan (Cozaar) 25 MG tabletIndications :Primary hypertension,Set Designer mayte renal impairment, stage 2 (mild) Take 1 tablet (25 mg) by mouth Once per day. 90 tablet 3 025 2024 Discontinued(R eorder (will not trigger notification to Pharmacy)) Active Problems Problem Noted Date Diagnosed Date Impacted cerumen of right ear 07/12/2024 Overview (07/12/2024): Right ear impacted on exam. -prescribed carbamide peroxide (Debrox) 6.5 % otic solution 07/12/24 Assessment & Plan (07/12/2024 4:12 PM EST): Right ear impacted on exam. -prescribed carbamide peroxide (Debrox) 6.5 % otic solution 07/12/24 Cystitis 07/12/2024 Overview (07/12/2024): Reports blood-tinged urine, hx of cystitis. -sent UA and culture 07/12/24 -prescribed phenazopyridine (Pyridium) 100 MG tablet Assessment & Plan (07/12/2024 4:16 PM EST): Reports blood-tinged urine, hx of cystitis. -sent UA and culture 07/12/24 -prescribed phenazopyridine (Pyridium) 100 MG tablet Candidiasis 07/12/2024 Overview (07/12/2024): Reports recurrent candidiasis, had relief with clotrimazole. -refilled lotrimazole (Lotrimin) 1 % vaginal cream 07/12/24 Assessment & Plan (07/12/2024 4:13 PM EST): Reports recurrent candidiasis, had relief with clotrimazole. -refilled lotrimazole (Lotrimin) 1 % vaginal cream 07/12/24 Red-colored urine 07/12/2024 Overview (07/12/2024): Reports blood-tinged urine, hx of cystitis. -sent UA and culture 07/12/24 -prescribed phenazopyridine (Pyridium) 100 MG tablet Assessment & Plan (07/12/2024 4:16 PM EST): Reports blood-tinged urine, hx of cystitis. -sent UA and culture 07/12/24 -prescribed phenazopyridine (Pyridium) 100 MG tablet Overweight 07/12/2024 Overview (07/12/2024): Discussed weight, diet, exercise with patient in relation to health conditions. Used motivational interviewing to illicit change talk and established initial goals with patient. Assessment & Plan (07/12/2024 4:14 PM EST): Discussed weight, diet, exercise with patient in relation to health conditions. Used motivational interviewing to illicit change talk and established initial goals with patient. Dietary counseling 07/12/2024 Assessment & Plan (07/12/2024 4:11 PM EST): Dietary Recommendations: Fruits, vegetables, whole grains, protein foods, and fat-free or low-fat dairy products are healthy choices. Eat different types of protein foods in your diet. This can include seafood, lean meats, poultry, beans, peas, lentils, nuts, seeds, soy products, and eggs. Limit foods and beverages higher in added sugars, saturated fat, and sodium. Exercise counseling 07/12/2024 Assessment & Plan (07/12/2024 4:11 PM EST): Exercise Recommendations: At least 150 minutes of moderate-intensity physical activity per week, or an equivalent combination of moderate- and vigorous-intensity activity group home (current) use of opiate analgesic 03/15 Overview (04/04/2024): Medication: Percocet 5-325mg Q6H PRN Indication: lumbar radiculopathy Last GAME DESIGNER Agreement: 08/24/23 Assessment & Plan (07/13/2024 4:18 PM EST): Medication: Percocet 5-325mg Q6H PRN Indication: lumbar radiculopathy Last GAME DESIGNER Agreement: 08/24/23 Assessment & Plan (04/04/2024 5:26 PM EDT): -Good engagement and participation with Group Medical Visit model -Encouraged multifactorial approach to pain control including pharm and non- pharm modalities -Pill count as expected, Utox POS for fentanyl (although has had false-positives in the past for BZO). Confirmatory sent to lab, results to be communicated to PCP when available. Vitamin D deficiency 12/22/2023 Overview (07/12/2024): Lab Results Component Value Date [id number] 35.8 04/26/2024 Insomnia 12/22/2023 Physical exam 05/12/2023 Overview (05/12/2023): -Normal growth and development. -Anticipatory guidance discussed. -Preventative care / harm reduction discussed. Assessment & Plan (05/12/2023 10:18 AM EST): -Normal growth and development. -Anticipatory guidance discussed. -Preventative care / harm reduction discussed. Other specified health status 04/24/2023 Overview (07/12/2024): -next comprehensive annual evaluation due after 07/12/25 -[facility] -Health care proxy given and filed 12/22/23 Assessment & Plan (07/12/2024 4:10 PM EST): -next comprehensive annual evaluation due after 07/12/25 -[facility] -Health care proxy given and filed 12/22/23 Assessment & Plan (12/22/2023 2:27 PM EDT): -next physical exam due after 05/12/2024 -[facility] -Health care proxy given and filed [...] collitis Lupus (systemic lupus erythematosus) 05/08/2022 Overview (07/12/2024): Diagnoses 04/2018 baed on arthralgia, Raynauds, Sicca symptoms, positive LUISITO, positive Sm and [employer] and leukopenia. Followed by rheumatology. Lat note from Dr. Flores 04/06/23 reviewed. -Plaquenil 200mg BID started 04/2018 -continue regular eye exams -s/p flu vaccine 02/2020 done at [facility] 04/2019 -Referred to new digital proofing and platemaker 07/12/24 Assessment & Plan (07/12/2024 4:10 PM EST): Diagnoses 04/2018 baed on arthralgia, Raynauds, Sicca symptoms, positive LUISITO, positive Sm and [employer] and leukopenia. Followed by rheumatology. Lat note from Dr. Flores 04/06/23 reviewed. -Plaquenil 200mg BID started 04/2018 -continue regular eye exams -s/p flu vaccine 02/2020 done at [facility] 04/2019 -Referred to new digital proofing and platemaker 07/12/24 Assessment & Plan (12/22/2023 8:38 AM EDT): Diagnoses 04/2018 baed on arthralgia, Raynauds, Sicca symptoms, positive LUISITO, positive Sm and [employer] and leukopenia. Followed by rheumatology. Lat note from Dr. Flores 04/06/23 reviewed. -Plaquenil 200mg BID started 04/2018 -continue regular eye exams -s/p flu vaccine 02/2020 done at [facility] 04/2019 Assessment & Plan (05/12/2023 10:17 AM EST): Diagnoses 04/2018 baed on arthralgia, Raynauds, Sicca symptoms, positive LUISITO, positive Sm and [employer] and leukopenia. Followed by rheumatology. Lat note from Dr. Flores 04/06/23 reviewed. -Plaquenil 200mg BID started 04/2018 -continue regular eye exams -s/p flu vaccine 02/2020 done at [facility] 04/2019 Assessment & Plan (10/15/2022 2:23 PM EDT): Diagnoses 04/2018 baed on arthralgia, Raynauds, Sicca symptoms, positive LUISITO, positive Sm and [employer] and leukopenia. Followed by rheumatology. -Plaquenil 200mg BID started 04/2018 -continue regular eye exams -s/p flu vaccine 02/2020 done at [facility] 04/2019 Chronic diarrhea 05/08/2022 Osteoporosis 05/08/2022 Overview (07/12/2024): Final Menstrual Period: Symptoms: Risk factors for osteoporosis: -USPTF recommends DEXA be preformed on all women > 65 years and women younger than 65 who have gone through menopause and are at increased risk of an osteoporotic fracture, as estimated by clinical risk assessment. -Discussed with the patient all the options for osteoporosis prevention and advised: -Ca+D supplements 1200 mg po qd/800 MIU -Weight bearing exercises -Adequate protein intake -Supplements may include magnesium, omega-3 -DEXA ordered 07/12/24 Results: Assessment & Plan (07/12/2024 4:15 PM EST): Final Menstrual Period: Symptoms: Risk factors for osteoporosis: -USPTF recommends DEXA be preformed on all women > 65 years and women younger than 65 who have gone through menopause and are at increased risk of an osteoporotic fracture, as estimated by clinical risk assessment. -Discussed with the patient all the options for osteoporosis prevention and advised: -Ca+D supplements 1200 mg po qd/800 MIU -Weight bearing exercises -Adequate protein intake -Supplements may include magnesium, omega-3 -DEXA ordered 07/12/24 Results: Hypothyroidism 05/08/2022 Overview (07/12/2024): Lab Results Component Value Date TSH 1.72 04/26/2024 TSH 3.95 10/20/2022 Abnormal QT interval present on electrocardiogra phy 11/11/2017 Anemia due to acute blood loss 12/06/2012 Overview (07/12/2024): Lab Results Component Value Date HGB 11.8 (L) 04/26/2024 HGB 12.2 05/12/2023 HGB 11.6 (L) 10/20/2022 HGB 11.6 (L) 05/01/2021 HEMATOCRIT 36.3 10/20/2022 HEMATOCRIT 37.1 05/01/2021 Chronic renal insufficiency 12/06/2012 Gastroesophageal reflux disease [...] feces 06/15/2012 Chronic low back pain 04/04/2012 Overview (07/12/2024): [facility].Per last notes: Good engagement and participation with Group Medical Visit model Encouraged multifactorial approach to pain control including pharm and non-pharm modalities Pill count as expected today, utox with positive for fentanyl and benzo, unexpected, sendout urine for confirmatory testing Followup every 3 months with pill count and utox prescribed lidocaine (Lidoderm) 5 % patch 07/12/24 Assessment & Plan (07/13/2024 4:17 PM EST): Good engagement and participation with Group Medical Visit model Encouraged multifactorial approach to pain control including pharm and non-pharm modalities Pill count less than expected, Utox positive for buprenorphine, BZO, and opioid. Confirmatory testing sent to lab. See health sciences dean. Assessment & Plan (07/12/2024 4:09 PM EST): [facility] with [facility].Per last notes: Good engagement and participation with Group Medical Visit model Encouraged multifactorial approach to pain control including pharm and non-pharm modalities Pill count as expected today, utox with positive for fentanyl and benzo, unexpected, sendout urine for confirmatory testing Followup every 3 months with pill count and utox prescribed lidocaine (Lidoderm) 5 % patch 07/12/24 Assessment & Plan (01/04/2024 2:33 PM EDT): [...] -UTOX and pill count as expected. See health sciences dean for further details -Encouraged to cont with pharm and non-pharm tx modalities Chronic type B viral hepatitis 04/04/2012 Overview (07/12/2024): VL 799 IU/mL, 2.90 log on 05/23/18 LFT's normal on 07/14/18 Currently on Plaquenil for lupus VL 93 international units/mbl, 1.97 log on 04/26/24 AFP 6.3 ng/mL on 04/26/24 Ordered US 07/12/24 Assessment & Plan (07/12/2024 3:40 PM EST): VL 799 IU/mL, 2.90 log on 05/23/18 LFT's normal on 07/14/18 Currently on Plaquenil for lupus VL 93 international units/mbl, 1.97 log on 04/26/24 AFP 6.3 ng/mL on 04/26/24 Ordered US 07/12/24 Assessment & Plan (12/22/2023 8:39 AM EDT): [...] on Plaquenil for lupus Depressive disorder 04/04/2012 Overview (07/12/2024): Follows with [facility]. Assessment & Plan (01/04/2024 2:33 PM EDT): Reports that she has been in a more depressive state the past three months Would like to be seen via zoom counseling Dyslipidemia 12/17/2011 Overview (07/12/2024): Lab Results Component Value Date CHOL 173 04/26/2024 TRIG 118 04/26/2024 TRIG 109 10/20/2022 HDL 66 04/26/2024 LDLCHOLCAL 84 04/26/2024 -continue lifestyle modification Assessment & Plan (12/22/2023 8:38 AM EDT): Lab Results Component Value Date CHOLESTEROL 196 10/20/2022 LDLCHOL 84 10/20/2022 LDLCHOL 101 (H) 05/01/2021 TRIG 109 10/20/2022 HDLCHOL 91 10/20/2022 CHOLHDLRAT 2.2 10/20/2022 -continue lifestyle modifications Hypertension 12/17/2011 Overview (07/06/2023): -Blood pressure is at goal -Continue lifestyle modifications -Continue current medications Assessment & Plan (07/12/2024 4:06 PM EST): -Blood pressure is at goal -Continue [...] Date Tremor 05/08/2022 05/11/2022 Dyspnea 11/11/2017 05/08/2022 Palpitations 11/11/2017 07/12/2024 Dislocation of temporomandibular joint 12/06/2012 04/24/2023 Encounters Date Type Department Care Team Description 08/02/2024 Orders Only [facility] [address] [place] [phone] Bharati Soriano MD Primary hypertension; Chronic renal impairment, stage 2 (mild) 08/01/2024 Orders Only [address] [address] Rosi Vergara MD Primary hypertension; Chronic renal impairment, stage 2 (mild) 08/01/2024 Orders Only [address] [address] Bharati Soriano MD Primary hypertension; Chronic renal impairment, stage 2 (mild) 07/30/2024 Refill [facility] [address] Bharati Soriano MD Gastroesophageal reflux disease without esophagitis 07/26/2024 Refill [facility] [address] [place], [place] [address] [address] Bharati Soriano MD Pain 07/24/[address] [address] Bharati Soriano MD Prior Authorization (Lidocaine 5% patch) 07/16/2024 Refill [facility] [place] [address] Bharati Soriano MD Mild intermittent asthma, unspecified whether complicated; Acquired hypothyroidism 07/12/2024 2:45 PM EST Office Visit [facility] [place] [address] Bharati Soriano MD Other forms of systemic lupus erythematosus, unspecified organ involvement status (CMS/HCC) (Primary Dx); Chronic type B viral hepatitis (CMS/HCC); Hypertension, unspecified type; Chronic low back pain, unspecified back pain laterality, unspecified whether sciatica present; Osteoporosis, unspecified osteoporosis type, unspecified pathological fracture presence; Candidiasis; Cystitis; Red-colored urine; Impacted cerumen of right ear; Overweight; Dietary counseling; Exercise counseling; Encounter for immunization; Other specified health status 07/11/2024 11:00 AM EST Office Visit [facility] [address] [place] [phone] Mily Alfredo, SPIRAL BINDER Chronic low back pain, unspecified back pain laterality, unspecified whether sciatica present (Primary Dx); Lumbar radiculopathy; Sacroiliac joint pain; group home (current) use of opiate analgesic 07/11/2024 Telephone [facility] [address] [place] [phone] Isaura Goode MA chartprep 07/11/2024 Telephone [facility] [address] [place], [place] [phone] Jocelyn Randall RN 07/11/2024 Travel 07/04/2024 Refill [facility] [address] [place] [phone] Bharati Soriano MD Pain 06/30/2024 Patient Outreach [facility] [address] [place] [phone] Bharati Soriano MD Pre-visit Planning (SDOH Screening negative and Tobacco screening negative) 06/15/2024 Refill [facility] [address] [place] [phone] Rosi Vergara MD Chronic diarrhea 06/15/2024 Refill [facility] [address] [place] [id number] Leena Verdin ANP Mild intermittent asthma, unspecified whether complicated; Chronic diarrhea 06/01/2024 Travel 06/01/2024 Refill [facility] [address] [place] [phone] Bharati Soriano MD Pain 05/30/2024 Telephone [facility] [address] [place] [phone] Bharati Soriano MD 05/25/2024 Refill [facility] [address] [place] [address] Bharati Soriano MD Dyslipidemia; Other osteoporosis without current pathological fracture 05/15/2024 Telephone [facility] [address] [place] [address] Ninoska Keith MA June Recall 05/10/2024 Refill [facility] [address] [place] [address] Bharati Soriano MD Mild intermittent asthma, unspecified whether complicated 05/10/2024 Refill [facility] [address] [place] [address] Bharati Soriano MD Dyslipidemia; Other osteoporosis without current pathological fracture; Mild intermittent asthma, unspecified whether complicated from Last 3 Months Immunizations Name Administration Dates Next Due Hep A, Adult 10/15/2022,07/28/2018 INFLUENZA VACCINE QUADRIVALE NT RECOMBINANT PRESERVATIVE FREE RIV4 03/13/2020 Influenza injectable quadriv alent IIV4 with preservative 04/05/2018,03/11/2016 Influenza injectable quadriv alent preservative free 03/04/2022,03/22/2017,04/25/2015,03/05 Influenza, High Dose Seasona l, Preservative Free 03/14/2019 Influenza, IIV3, injectable 03/26/2021,1 ,02/13/2016,03/26 Influenza, Split (incl. lata fied surface antigen) 03/09/2013,04/04/2012 Influenza, seasonal, injecta ble, preservative free 07/12/2024 Moderna Covid-19 Vaccine 12+ 10/02/2020,09/05/19 21 Pfizer Covid-19 Vaccine 12+ 05/12/2023,,05/01/2021 Pfizer Covid-19 Vaccine 12+ willy-sucrose (Alegria Cap) 01/22/2022 Pneumococcal Conjugate PCV 13 05/01/2020 Pneumococcal Polysaccharide PPSV23 05/01/2020, RSV Bivalent 12/22/2023 TD (adult), 2 Lf tetanus tox oid, preservative free, adsorbed 03/17/2001 Tdap 10/15/2022,04/04/2012 Zoster, Recombinant 09/03/2021,03/06/2021 Zoster, live 07/25/2014 Family History Medical History Relation Name Comments Cancer Maternal Grandmother Breast cancer Sister Relation Name Status Comments Maternal Grandmother Sister Social History Tobacco Use Types Packs/Day Years [...] Sign Reading Time Taken Comments Blood Pressure 116/82 07/12/2024 2:58 PM EST Pulse 110 07/12/2024 2:58 PM EST Temperature 36.1 ??C (96.9 ??F) 07/12/2024 2:58 PM ES T Respiratory Rate 20 07/12/2024 2:58 PM EST Oxygen Saturation 98% 07/12/2024 2:58 PM EST Inhaled Oxygen Concentration - - Weight 58.5 kg (129 lb) 07/12/2024 2:58 PM EST Height 152.4 cm (5') 07/12/2024 2:58 PM EST Body Mass Index 25.19 07/12/2024 2:58 PM EST Plan of Treatment Upcoming Encounters Date Type Department Care Team (Late st Contact Info) Description 09/07/2024 1:00 PM EDT Office Visit [facility] [address] [place] [address] Denzel, Elo [address] [place] [address] 09/19/2024 11:00 AM EDT Office Visit [facility] [address] [place] [address] Health Maintenance Due Date Last Done Comments CT Colonography 1953 FIT DNA/Cologuard 1955 FIT 1953 FOBT 1955 Sigmoidoscopy 1955 Dental Oral Exam 01/19/2024 07/20/2023 Dental X-Ray: Full Mouth 03/27/2024 03/26/2022, 03/14 Dental X-Ray: Bitewings 07/21/2024 07/20/19 24 (Patient Refused) Dental Prophylaxis 09/07/2024 03/09/2024, 0 07/20/2023, 09/30/2022 Alcohol/Substance Use Screening 12/21/2024 12/22/2023 Depression Screening 01/13/2025 01/14/2024, 01/14/20 24 SDOH Screening 06/30/2025 06/30/2024 COVID-19 Vaccine ( season) 2025 05/12/2023, 01/22/2022, 01/22/2022, Additional history exists Postponed from 02/13/2024 (Patient Refused) Tobacco Screening 07/12/2025 07/12/2024 Mammogram 09/28/2025 09/29/2023, 09/12, 09/16/2022, Additional history exists Colonoscopy 03/30/2027 03/30/2022 Colorectal Cancer Screening 03/30/2027 Lipid Panel 04/26/2029 04/26/2024, 02/2023, 05/01/2021 DTaP/Tdap/Td Vaccines (3 - Td or Tdap) 10/15/2032 10/15/2022, 04/04/2012, 03/17/2001 Hepatitis C Screening Completed 03/18/2018 Pneumococcal Vaccine: 50+ Years Completed 05/01/2020, 05/01/2020, 07/28/2018 Zoster Vaccines Completed 09/03/2021, 02/13, 07/25/2014 Hepatitis A Vaccines Completed 10/15/2022, 07/28/19 19 RSV Patients and Patients Aged 60 years or older Completed 12/22/2023 Influenza Vaccine Completed 07/12/2024, , 03/26/2021, Additional history exists HIB Vaccines Aged Out No longer eligi [...] back pain laterality, unspecified whether sciatica present DRUG MONITORING, BENZODIAZEPINES, QUANTITATIVE, URINE Routine 07/11/2024 11:30 AM EST Chronic low back pain, unspecified back pain laterality, unspecified whether sciatica present DRUG TOX MONITORING BUPRENORPHINE, W/CONF,U Routine 07/11/2024 11:30 AM EST Chronic low back pain, unspecified back pain laterality, unspecified whether sciatica present LIPID PANEL, STANDARD Routine 04/26/2024 10:02 AM EST Dyslipidemia PROPHYLAXIS - ADULT Routine 03/09/2024 1 :00 PM EDT HM MAMMOGRAPHY Routine 09/29/2023 11:17 AM EDT PERIODIC ORAL EVALUATION - ESTABLISHED PATIENT Routine 07/20/2023 3:00 PM EST COLONOSCOPY Routine 03/30/2022 HEPATITIS C ANTIBODY (EXTERNAL [...] Unknown 07/11/2024 1:39 PM EST Mily Alfredo SPIRAL BINDER POINT OF CARE TEST ENTER/EDIT ORDERABLES Final Result * Drug Monitoring, Benzodiazepines, Quantitative, Urine (07/11/2024 11:30 AM EST) Nordiazepam, GCMS Urine NEGATIVE [facility] Oxazepam, GCMS Urine NEGATIVE [facility] Lorazepam GCMS Urine NEGATIVE [facility] Alprazolam, GCMS Urine NEGATIVE [facility] Alphahydroxytriazolam, GCMS Ur NEGATIVE [facility] Temazepam, GCMS Urine NEGATIVE [facility] Alphahydroxymidazolam,GC MS Ur NEGATIVE [facility] Aminoclonazepam, GCMS Urine NEGATIVE [facility] Flurazepam Metabolite,GCMS Ur NEGATIVE [facility] Benzodiazepines Comments SEE NOTE [facility] Comment:This drug testing is for medical treatment only.Analysis was performed as non-forensic testing andthese results should be used only by healthcareproviders to render diagnosis or treatment, or tomonitor progress of medical conditions.LDT Notes:Confirmation tests were developed and their analyticalperformance characteristics have been determined by[facility]. It has not been cleared or approvedby the FDA. This assay has been validated pursuant [facility] CLIA regulations and is used for clinical purposes.Healthcare Providers needing Interpretation assistance,please contact us at [phone] ( )M-F, 8am to 10pm ESTTHIS TEST PERFORMED AT:[facility] [place] [phone] DIRECTOR: VAUGHN BAUTISTA MD Urine (Urine, Random) 07/11/2024 11:30 AM EST 07/11/2024 4:08 PM EST Mily Alfredo [facility] URINE ORDERABLES Final Res ult [facility] [address] [place] [phone] * Drug Toxicology Monitoring Buprenorphine, with Confirmation, Urine (07/11/2024 11:30 AM EST) Buprenorphine NEGATIVE [facility] Comment:REFERENCE RANGE: <2 ng/mL Norbuprenorphine NEGATIVE [facility] Comment:REFERENCE RANGE: <2 ng/mL Naloxone, Urine NEGATIVE [facility] Comment:REFERENCE RANGE: <2 ng/mL Buprenorphine Comments SEE NOTE [facility] Comment:This drug testing is for medical treatment only.Analysis was performed as non-forensic testing andthese results should be used only by healthcareproviders to render diagnosis or treatment, or tomonitor progress of medical conditions.LDT Notes:Confirmation tests were developed and their analyticalperformance characteristics have been determined by[employer]. It has not been cleared or approvedby the FDA. This assay has been validated pursuant [employer] CLIA regulations and is used for clinical purposes.Healthcare Providers needing Interpretation assistance,please contact us at [phone] ( )M-F, 8am to 10pm ESTTHIS TEST PERFORMED AT:[facility] [address] [phone] DIRECTOR: VAUGHN BAUTISTA MD Urine (Urine, Random) 07/11/2024 11:30 AM EST 07/11/2024 4:08 PM EST us Mily [facility] LAB URINE ORDERABLES Final Res ult Performing Organization Address [facility] Co de Phone Number [facility] [address] [place] [address] [phone] * Lipid Panel, Standard (04/26/2024 10:02 AM EST) Triglycerides 118 <150 mg/dL [facility] Comment:Desirable Triglyceri de: less than 150 mg/dLBorderline High Triglyceride 150-199 mg/dLHigh Triglyceride: 200-499 mg/dLVery High Triglyceride: greater than or equal to 5OO mg/dL Cholesterol 173 <200 mg/dL [facility] Comment:Desirable Cholestero l: less than 200 mg/dLBorderline High Cholesterol: 200-239 mg/dLHigh Cholesterol: greater than 239 mg/dL LDL Cholesterol Calculated 84 <100 mg/dL [facility] Comment:Desirable LDL: less than 100 mg/dLNear Optimal/Above Optimal LDL: 110- 129 mg/dLBorderline High LDL: 130-159 mg/dLHigh LDL: 160-189 mg/dLVery High LDL: greater than or equal to 190 mg/dL HDL Cholesterol 66 >40 mg/dL [facility] Comment:Desirable HDL: great er than 40 mg/dL Note: This HDL assay may give artificially low results in patients with liver disease. Blood Venous blood specimen / Unknown 04/26/2024 10:02 AM EST 04/26/2024 10:02 AM EST us Bharati Soriano MD LAB BLOOD ORDERABLES Final Result Performing Organization Address [facility]/ZIP Co de Phone Number [facility] [address] [place] [address] [phone] * (ABNORMAL) Mammography (09/29/2023 11:17 AM [...] Most Recently Relevant to Health Maintenance Insurance [facility] [employer] Member Subscriber Plan / Payer (Ef fective 2023-Present) Name:Sara Lancaster Member ID:[id number] Relation to Subscriber:Self Name:Sara Lancaster Subscriber ID:[id number] Payer ID:[id number] Group ID:Not on file Type:Medicare Address: [facility], [facility]. [address] [facility] [place] [address] * Guarantor: Sara Lancaster Account Type Relation to Patient Date of Phone Billing Address Dental Self [address] [place] [address] [facility] * Guarantor: Sara Lancaster Account Type Relation to Patient Date of Phone Billing Address Personal/Family Self [address] [place] [address] * Guarantor: Sara Lancaster Account Type Relation to Patient Date of Phone Billing Address Personal/Family Self [address] [place] [address] * Guarantor: Sara Lancaster Account Type Relation to Patient Date of Phone Billing Address Personal/Family Self [address] [place] [address] Advance Directives Documents on File Type Date Recorded Patient Branch Sales And Service Representative Expl anation Advance Directives and Living Will 12/22/2023 Health Care Proxy 12/22/23 Care Teams Subway Repair Supervisor Relationship Specialty Start Date End Date [place], [place] Bharati [address] [employer] [place] [address] PCP - General Family Medicine 06/14/18 Vasyl Boles MD [address] [place] [address] [place] [phone] Gastroenterology 06/20/24
--- OUTSIDE RECORDS SUMMARY | 2024-08-09 08:43 | XMS_ITS | Encounter Summary ---
Author Organization [employer] Address [address] [facility] 7t [place] [address] Care Team Providers Care Office Machinery Or Equipment Installer Name Role Phone Bharati Soriano MD Primary Care Provider +1- [phone] Vasyl Boles MD Unavailable [phone] Encounter Details Date Type Department Care Team (Late st Contact Info) Description 07/11/2024 11:00 AM EST Office Visit [facility] [address] [place] [address] Mily Alfredo, BRENDON [address] [place] [address] Chronic low back pain, unspecified back pain laterality, unspecified whether sciatica present (Primary Dx); Lumbar radiculopathy; Sacroiliac joint pain; 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 female w/ PMH lumbar radiculopathy, hypertension, hypothyroid, lupus, rectal carcinoma s/p radiation and chemo in 2008, chronic Hep B, anxiety, and osteoporosis, who presents to the office for - Chronic Pain [facility] Group visits. Initial Group visit: 07/06/23 Group Visit number: 7 Last PCP visit: upcoming 07/12/24, Dr. Soriano Group Confidentiality last signed: 07/06/23 Group Topic: Functional Goal Setting Chronic Pain History: Associated Diagnosis: lumbar radiculopathy, SI joint pain, lupus, chronic low back pain Current pharm tx: Medication: oxycodone-APAP 5-325mg Q6H PRN Non-pharm tx: acupuncture and physical therapy have not been helpful in the past. Massage has been beneficial. Specialists: reports receiving steroid injections [id number] (lumbar/SI) Functional Goals: would like to be able to travel more Review of Systems Constitutional: Negative for chills and fever. HENT: Negative for congestion. Respiratory: Negative for cough and wheezing. Cardiovascular: Negative for chest pain and palpitations. Gastrointestinal: Negative for diarrhea, nausea and vomiting. Musculoskeletal: Positive for arthralgias and back pain. Physical Exam Constitutional: Appearance: Normal appearance. HENT: Head: Atraumatic. Right Ear: External ear normal. Left Ear: External ear normal. Pulmonary: Effort: Pulmonary effort is normal. Neurological: Mental Status: She is alert and oriented to person, place, and time. Psychiatric: Mood and Affect: Mood normal. Behavior: Behavior normal. Problem List Items Addressed This Visit Nervous Lumbar radiculopathy Musculoskeletal Sacroiliac joint pain Other Chronic low back pain - Primary Overview Current Assessment & Plan Good engagement and participation with Group Medical Visit model Encouraged multifactorial approach to pain control including pharm and non-pharm modalities Pill count less than expected, Utox positive for buprenorphine, BZO, and opioid. Confirmatory testing sent to lab. See propulsion motor and generator repairer. Relevant Orders Drug Toxicology Monitoring Buprenorphine, with Confirmation, Urine Drug Monitoring, Benzodiazepines, Quantitative, Urine POCT [id number] Urine Drug Screen (Completed) group home (current) use of opiate analgesic Overview Medication: Percocet 5-325mg Q6H PRN Indication: lumbar radiculopathy Last FEATURES EDITOR Agreement: 08/24/23 Follow up: PCP as scheduled, sooner as needed. May need sooner f/up pending results of confirmatorytesting. * Jocelyn Randall RN - 07/11/2024 11:00 AM EST .FEATURES EDITOR guard captain: PDMP reviewed today. Last fill date: 07/05/24 (Percocet 5-325mg Q6hr PRN) count was (58), anticipated (64) to be remaining. Count NOT as expected. Patient stated she has been taking medication 3-4-5/ times a day depending on her pain. Reminded to take med only as prescribed, patient verbalized understanding . PCP will be notified. .UTOX completed. Positive OXY, BUP, BZO, Negative for AMP, BAR, JAXON, FTY, MDMA, MET, MOP, MTD, PCP,TCA, THC. UTOX NOT as expected. Sending urine out to the lab for BUP, BZO confirmation. PCP will benotified. .BPI updated today. Pain severity score of (10), activity interference score of (7.7). Previous BPIcompleted (04/04/24) with pain severity score of (8.5), activity interference score of (7.4). FEATURES EDITOR Agreement renewed today. documented in this encounter Miscellaneous Notes * Assessment & Plan Note - BRENDON Fleming - 07/13/2024 4:18 PM ESTAssociated Problem(s): group home (current) use of opiate analgesic Medication: Percocet 5-325mg Q6H PRN Indication: lumbar radiculopathy Last FEATURES EDITOR Agreement: 08/24/23 * Assessment & Plan Note - BRENDNO Fleming - 07/13/2024 4:17 PM ESTAssociated Problem(s): Chronic low back pain Good engagement and participation with Group Medical Visit model Encouraged multifactorial approach to pain control including pharm and non-pharm modalities Pill count less than expected, Utox positive for buprenorphine, BZO, and opioid. Confirmatory testing sent to lab. See propulsion motor and generator repairer. documented in this encounter Plan of Treatment Upcoming Encounters Date Type Department Care Team (Late st Contact Info) Description 09/07/2024 1:00 PM EDT Office Visit [facility] [address] [place] [address] Denzel, Elo [address] [place] [address] 09/19/2024 11:00 AM EDT Office Visit [facility] [address] [place] [address] documented as of this encounter Procedures Procedure [...] 11:30 AM EST) Nordiazepam, GCMS Urine NEGATIVE [facility] Oxazepam, GCMS Urine NEGATIVE [facility] Lorazepam GCMS Urine NEGATIVE [facility] Alprazolam, GCMS Urine NEGATIVE [facility] Alphahydroxytriazolam, GCMS Ur NEGATIVE [facility] Temazepam, GCMS Urine NEGATIVE [facility] Alphahydroxymidazolam,GC MS Ur NEGATIVE [facility] Aminoclonazepam, GCMS Urine NEGATIVE [facility] Flurazepam Metabolite,GCMS Ur NEGATIVE [facility] Benzodiazepines Comments SEE NOTE [facility] Comment:This drug testing is for medical treatment only.Analysis was performed as non-forensic testing andthese results should be used only by healthcareproviders to render diagnosis or treatment, or tomonitor progress of medical conditions.LDT Notes:Confirmation tests were developed and their analyticalperformance characteristics have been determined by[employer]. It has not been cleared or approvedby the FDA. This assay has been validated pursuant tothe CLIA regulations and is used for clinical purposes.Healthcare Providers needing Interpretation assistance,please contact us at [phone] ( )M-F, 8am to 10pm ESTTHIS TEST PERFORMED AT:[facility] [address] [phone] DIRECTOR: VAUGHN BAUTITSA MD Urine (Urine, Random) 07/11/2024 11:30 AM EST 07/11/2024 4:08 PM EST us Mily Alfredo [facility] URINE ORDERABLES Final Res ult [facility] [address] [place] [phone] * Drug Toxicology Monitoring Buprenorphine, with Confirmation, Urine (07/11/2024 11:30 AM EST) Buprenorphine NEGATIVE [facility] Comment:REFERENCE RANGE: <2 ng/mL Norbuprenorphine NEGATIVE [facility] Comment:REFERENCE RANGE: <2 ng/mL Naloxone, Urine NEGATIVE [facility] Comment:REFERENCE RANGE: <2 ng/mL Buprenorphine Comments SEE NOTE [facility] Comment:This drug testing is for medical treatment only.Analysis was performed as non-forensic testing andthese results should be used only by healthcareproviders to render diagnosis or treatment, or tomonitor progress of medical conditions.LDT Notes:Confirmation tests were developed and their analyticalperformance characteristics have been determined by[employer]. It has not been cleared or approvedby the FDA. This assay has been validated pursuant [employer] CLIA regulations and is used for clinical purposes.Healthcare Providers needing Interpretation assistance,please contact us at [phone] ( )M-F, 8am to 10pm ESTTHIS TEST PERFORMED AT:[facility] [address] [phone] DIRECTOR: VAUGHN BAUTISTA MD Urine (Urine, Random) 07/11/2024 11:30 AM EST 07/11/2024 4:08 PM EST Mily Alfredo EQUIPMENT PROCESSOR LAB URINE ORDERABLES Final Res ult [facility] [address] [place] [phone] documented in this encounter Visit Diagnoses Diagnosis Chronic low back pain, unspecified back pain laterality, unspecified whether sciatica present- Primary Lumbar radiculopathy Thoracic or lumbosacral neuritis or radiculitis, unspecified Sacroiliac joint pain Disorders of sacrum group home (current) use of opiate analgesic documented in this encounter Additional Health Concerns Assessment Noted Time PHQ-9 Depression Total Score: 1 01/14/20 24 10:00 AM EDT documented as of this encounter Care Teams Office Machinery Or Equipment Installer Relationship Specialty Start Date End Date Bharati Soriano MD [address] [place] [address] PCP - General Family Medicine 06/14/18 Vasyl Boles MD [address] [place] [address] [place] [phone] Gastroenterology 06/20/24 documented as of this encounter
--- OUTSIDE RECORDS SUMMARY | 2024-08-09 08:44 | XMS_ITS | Encounter Summary ---
Author Organization [employer] Address [address] [place] [address] 7 [place] [address] Care Team Providers Care Freelance Web Designer Name Role Phone Bharati Soriano MD Primary Care Provider [phone] Vasyl Boles MD Unavailable [phone] Reason for Visit * Reason Comments Med Refill Encounter Details Date Type Department Care Team (Late st Contact Info) Description 10/05/2022 Refill [facility] [address] [place] [address] Bharati Soriano MD [address] [place] [address] Wheeze Social History Tobacco Use Types Packs/Day [...] [facility] [address] [place] [address] Elo Mahoney [address] [place] [address] 09/19/2024 11:00 AM EDT Office Visit [facility] [address] [place] [address] documented as of this encounter Visit Diagnoses Diagnosis Wheeze Wheezing documented in this encounter Care Teams Freelance Web Designer Relationship Specialty Start Date End Date Bharati Soriano MD [address] [place] [address] PCP - General Family Medicine 06/14/18 Vasyl Boles MD [address] [place] [address] [place] [phone] Gastroenterology 06/20/24 documented as of this encounter
--- OUTSIDE RECORDS SUMMARY | 2024-08-09 08:44 | XMS_ITS | Encounter Summary ---
Author Organization [employer] Address [address] [facility] 7t [place] [address] Care Team Providers Care Director Of Safety Name Role Phone Bharati Soirano MD Primary Care Provider [phone]- [phone] Vasyl Boles MD Unavailable [phone] Reason for Visit * Reason Onset Date Comments Med Refill 05/03/2023 Encounter Details Date Type Department Care Team (Late st Contact Info) Description 05/03/2023 Telephone [facility] [address], [place] [phone] Bharati Soriano MD [address] [place], [place] [phone] Med Refill Social History Tobacco Use Types [...] Description 09/07/2024 1:00 PM EDT Office Visit [facility] [address] [place] [address] Denzel, Elo [address] [place] [address] 09/19/2024 11:00 AM EDT Office Visit [facility] [address] [place] [address] documented as of this encounter Visit Diagnoses Not on filedocumented in this encounter Additional Health Concerns Assessment Noted Time PHQ-9 Depression Total Score: 0 10/16/19 23 2:27 PM EDT documented as of this encounter Care Teams Director Of Safety Relationship Specialty Start Date End Date Bharati Soriano MD [address] [place] [address] PCP - General Family Medicine 06/14/18 Vasyl Boles MD [address] [place] [address] [place] [phone] Gastroenterology 06/20/24 documented as of this encounter
--- OUTSIDE RECORDS SUMMARY | 2024-08-09 08:44 | XMS_ITS | Encounter Summary ---
Author Organization [facility] Address [address] [place] [address] 7 [place] [address] Care Team Providers Care Trade Marker Name Role Phone Bharati Soriano MD Primary Care Provider [phone]- [phone] Vasyl Boles MD Unavailable [phone] Encounter Details Date Type Department Care Team (Latest Contact Info) Description 03/16/2022 Abstract [facility] CONVERSIONS Dental, Provider, DDS Social [...] 1:00 PM EDT Office Visit [facility] ADULT DENTAL [address] [place] [address] Denzel, Elo [address] [place] [address] 09/19/2024 11:00 AM EDT Office Visit [facility] MED[facility]INE [address] [place] [address] documented as of this encounter Visit Diagnoses Not on filedocumented in this encounter Care Teams Trade Marker Relationship Specialty Start Date End Date Bharati Soriano MD [address] [place] [address] PCP - General Family Medicine 06/14/18 Vasyl Boles MD [address] [place] [address] [place] [phone] Gastroenterology 06/20/24 documented as of this encounter
--- OUTSIDE RECORDS SUMMARY | 2024-08-09 08:44 | XMS_ITS | Encounter Summary ---
Author Organization [employer] Address [address] [facility] 7t [place] [address] Care Team Providers Care Social Services Coordinator Name Role Phone Bharati Soriano MD Primary Care Provider [phone]- [phone] Vasyl Boles MD Unavailable [phone] Reason for Visit * Reason Comments Med Refill Encounter Details Date Type Department Care Team (Late st Contact Info) Description 07/04/2023 Refill [facility] [address] [place] [address] Bharati Soriano MD [address] [place], [place] [phone] Acquired hypothyroidism; Dyslipidemia Social History Tobacco Use Types Packs/Day Years Used Date Smoking Tobacco: Never Passive Smoke Exposure: Never Smokeless Tobacco: Never Depression Answer Date Recorded Patient Health Questionnaire-9 Score 0 10/15/2022 Housing Stability Answer Date Recorded What is your housing situation today? I have naita anaya 03/29/[address] you [...] 09/07/2024 1:00 PM EDT Office Visit [facility] [address] [place] [address] Denzel, Elo [address] [place] [address] 09/19/2024 11:00 AM EDT Office Visit [facility] [address] [place] [address] documented as of this encounter Visit Diagnoses Diagnosis Acquired hypothyroidism Unspecified hypothyroidism Dyslipidemia Other and unspecified hyperlipidemia documented in this encounter Additional Health Concerns Assessment Noted Time PHQ-9 Depression Total Score: 0 10/16/19 23 2:27 PM EDT documented as of this encounter Care Teams Social Services Coordinator Relationship Specialty Start Date End Date Bharati Soriano MD [address] [place] [address] PCP - General Family Medicine 06/14/18 Vasyl Boles MD [address] [place] [address] [place] [phone] Gastroenterology 06/20/24 documented as of this encounter
--- OUTSIDE RECORDS SUMMARY | 2024-08-09 08:44 | XMS_ITS | Encounter Summary ---
Author Organization [facility] Address [address] [place] [address] 7 [place] [address] Care Team Providers Care Coding Quality Analyst Name Role Phone Bharati Soriano MD Primary Care Provider [phone]- [phone] Vasyl Boles MD Unavailable [phone] Encounter Details Date Type Department Care Team (Late st Contact Info) Description 08/11/2022 Abstract [facility] [address] [place] [phone] Bharati Soriano MD [address] [place], [place] [phone] Social History Tobacco Use Types Packs/Day Years [...] Description 09/07/2024 1:00 PM EDT Office Visit [facility]AL [address] [place] [address] [phone] Elo Mahoney [address] [place] [address] 09/19/2024 11:00 AM EDT Office Visit [facility] [address] [place] [phone] documented as of this encounter Procedures Procedure Name Priority Date/Time Associated Diagnosis Comments PAP SMEAR Routine 03/14/2015 12:00 AM EDT documented in this encounter Results * Pap Smear (03/14/2015 12:00 AM EDT) Swab us Historical Provider LAB CYTOLOGY ORDERABLES F inal Result IMAGING documented in this encounter Visit Diagnoses Not on filedocumented in this encounter Care Teams Coding Quality Analyst Relationship Specialty Start Date End Date Bharati Soriano MD [address] [place] [address] PCP - General Family Medicine 06/14/18 Vasyl Boles MD [address] [place] [address] [address] [place] [phone] Gastroenterology 06/20/24 documented as of this encounter
--- OUTSIDE RECORDS SUMMARY | 2024-08-09 08:44 | XMS_ITS | Encounter Summary ---
Author Organization [employer] Address [address] [facility] 7t [place] [address] Care Team Providers Care Smocker Name Role Phone Bharati Soriano MD Primary Care Provider [phone]- [phone] Vasyl Boles MD Unavailable [phone] Reason for Visit * Reason Comments Med Refill Encounter Details Date Type Department Care Team (Late st Contact Info) Description 07/16/2024 Refill [facility] [address] [place] [address] Bharati Soriano MD [address] [place], [place] [phone] Mild intermittent asthma, unspecified whether complicated; Acquired hypothyroidism Social History Tobacco Use Types [...] 1:00 PM EDT Office Visit [facility]ULT [facility] [address] [place] [address] Denzel, Elo [address] [place] [address] 09/19/2024 11:00 AM EDT Office Visit [facility] [address] [place] [address] documented as of this encounter Visit Diagnoses Diagnosis Mild intermittent asthma, unspecified whether complicated Acquired hypothyroidism Unspecified hypothyroidism documented in this encounter Additional Health Concerns Assessment Noted Time PHQ-9 Depression Total Score: 1 01/14/20 24 10:00 AM EDT documented as of this encounter Care Teams Smocker Relationship Specialty Start Date End Date Bharati Soriano MD [address] [place] [address] PCP - General Family Medicine 06/14/18 Vasyl Boles MD [address] [place] [address] [place] [phone] Gastroenterology 06/20/24 documented as of this encounter
--- OUTSIDE RECORDS SUMMARY | 2024-08-09 08:44 | XMS_ITS | Encounter Summary ---
Author Organization [employer] Address [address] [facility] 7t [place] [address] Care Team Providers Care Development Administrator Name Role Phone Bharati Soriano MD Primary Care Provider [phone]- [phone] Vasyl Boles MD Unavailable [phone] Reason for Visit * Reason Onset Date Comments Med Refill 06/01/2023 Encounter Details Date Type Department Care Team (Late st Contact Info) Description 06/01/2023 Telephone [facility] MEDICINE [address] [place] [address] Bharati Soriano MD [address] [place], [place] [phone] Med Refill Social History Tobacco Use Types [...] Description 09/07/2024 1:00 PM EDT Office Visit [facility] ADULT DENTAL [address] [place] [address] Denzel, Elo [address] [place] [address] 09/19/2024 11:00 AM EDT Office Visit [facility] MEDICINE [address] [place] [address] documented as of this encounter Visit Diagnoses Not on filedocumented in this encounter Additional Health Concerns Assessment Noted Time PHQ-9 Depression Total Score: 0 10/16/19 23 2:27 PM EDT documented as of this encounter Care Teams Development Administrator Relationship Specialty Start Date End Date Bharati Soriano MD [address] [place] [address] PCP - General Family Medicine 06/14/18 Vasyl Boles MD [address] [place] [address] [place] [phone] Gastroenterology 06/20/24 documented as of this encounter
--- OUTSIDE RECORDS SUMMARY | 2024-08-09 08:44 | XMS_ITS | Encounter Summary ---
Author Organization [employer] Address [address] [facility] 7t [place] [address] Care Team Providers Care Tile Molder Name Role Phone Bharati Soriano MD Primary Care Provider [phone]- [phone] Vasyl Boles MD Unavailable [phone] Reason for Visit * Reason Comments Med Refill Encounter Details Date Type Department Care Team (Late st Contact Info) Description 07/02/2023 Refill [facility] MEDICINE [address] [place] [address] Bharati Soriano MD [address] [place], [place] [phone] Social History Tobacco Use Types Packs/Day Years [...] Description 09/07/2024 1:00 PM EDT Office Visit [facility] ADULT DENTAL [address] [place] [address] Elo Mahoney [address] [place] [address] 09/19/2024 11:00 AM EDT Office Visit [facility] MEDICINE [address] [place] [address] documented as of this encounter Visit Diagnoses Not on filedocumented in this encounter Additional Health Concerns Assessment Noted Time PHQ-9 Depression Total Score: 0 10/16/19 23 2:27 PM EDT documented as of this encounter Care Teams Tile Molder Relationship Specialty Start Date End Date Bharati Soriano MD [address] [place] [address] PCP - General Family Medicine 06/14/18 Vasyl Boles MD [address] [place] [address] [place] [phone] Gastroenterology 06/20/24 documented as of this encounter
--- OUTSIDE RECORDS SUMMARY | 2024-08-09 08:44 | XMS_ITS | Encounter Summary ---
Author Organization [employer] Address [address] [facility] 7t [place] [address] Care Team Providers Care Automobile Body Repairer Name Role Phone Bharati Soriano MD Primary Care Provider [phone] Vasyl Boles MD Unavailable [phone] Reason for Visit * Reason Onset Date Comments requesting a call back 09/07/2022 Encounter Details Date Type Department Care Team (Late st Contact Info) Description 09/07/2022 Telephone [facility] MEDICINE [address] [place] [address] Bharati Soriano MD [address] [place] [address] requesting a call back Social History Tobacco [...] 09/07/2024 1:00 PM EDT Office Visit [facility] ADULT DENTAL [address] [place] [address] Al Mahoneyaris [address] [place] [address] 09/19/2024 11:00 AM EDT Office Visit [facility] MEDICINE [address] [place] [address] documented as of this encounter Visit Diagnoses Not on filedocumented in this encounter Care Teams Automobile Body Repairer Relationship Specialty Start Date End Date Bharati Soriano MD [address] [place] [address] PCP - General Family Medicine 06/14/18 Vasyl Boles MD [address] [place] [address] [place] [phone] Gastroenterology 06/20/24 documented as of this encounter
--- OUTSIDE RECORDS SUMMARY | 2024-08-09 08:44 | XMS_ITS | Encounter Summary ---
Author Organization [employer] Address [address] [facility] 7t [place] [address] Care Team Providers Care Floorworker Lasting Name Role Phone Bharati Soriano MD Primary Care Provider [phone]- [phone] Vasyl Boles MD Unavailable [phone] Reason for Visit * Reason Comments Med Refill Encounter Details Date Type Department Care Team (Late st Contact Info) Description 06/18/2023 Refill [facility] MEDICINE [address] [place] [address] Bharati Soriano MD [address] [place], [place] [phone] Dyslipidemia; Acquired hypothyroidism Social History Tobacco Use [...] Description 09/07/2024 1:00 PM EDT Office Visit [facility] ADULT DENTAL [address] [place] [address] Denzel, Elo [address] [place] [address] 09/19/2024 11:00 AM EDT Office Visit [facility] MEDICINE [address] [place] [address] documented as of this encounter Visit Diagnoses Diagnosis Dyslipidemia Other and unspecified hyperlipidemia Acquired hypothyroidism Unspecified hypothyroidism documented in this encounter Additional Health Concerns Assessment Noted Time PHQ-9 Depression Total Score: 0 10/16/19 23 2:27 PM EDT documented as of this encounter Care Teams Floorworker Lasting Relationship Specialty Start Date End Date Bharati Soriano MD [address] [place] [address] PCP - General Family Medicine 06/14/18 Vasyl Boles MD [address] [place] [address] [place] [phone] Gastroenterology 06/20/24 documented as of this encounter
--- OUTSIDE RECORDS SUMMARY | 2024-08-09 08:44 | XMS_ITS | Encounter Summary ---
Author Organization [employer] Address [address] [place] [address] 7 [place] [address] Care Team Providers Care Film Or Tape Librarian Name Role Phone Bharati Soriano MD Primary Care Provider [phone]- [phone] Vasyl Boles MD Unavailable [phone] Reason for Visit * Reason Comments Med Change Request Encounter Details Date Type Department Care Team (Late st Contact Info) Description 09/08/2022 Refill [facility] MEDICINE [address] [place] [address] Bharati Soriano MD [address] [place] [address] Social History Tobacco Use Types Packs/Day Years [...] 09/07/2024 1:00 PM EDT Office Visit [facility] ADULT DENTAL [address] [place] [address] Denzel, Elo [address] [place] [address] 09/19/2024 11:00 AM EDT Office Visit [facility] MEDICINE [address] [place] [address] documented as of this encounter Visit Diagnoses Not on filedocumented in this encounter Care Teams Film Or Tape Librarian Relationship Specialty Start Date End Date Bharati Soriano MD [address] [place] [address] PCP - General Family Medicine 06/14/18 Vasyl Boles MD [address] [place] [address] [place] [phone] Gastroenterology 06/20/24 documented as of this encounter
--- OUTSIDE RECORDS SUMMARY | 2024-08-09 08:44 | XMS_ITS | Encounter Summary ---
Author Organization [employer] [facility] Address [address] [place] [address] 7 [place] [address] Care Team Providers Care Distributing Clerk Name Role Phone Bharati Soriano MD Primary Care Provider [phone]- [phone] Vasyl Boles MD Unavailable [phone] Encounter Details Date Type Department Care Team (Latest Contact Info) Description 03/26/2021 Abstract [facility] CONVERSIONS Dental, Provider, DDS Social [...] 1:00 PM EDT Office Visit [facility] ADULT DENTAL [address] [place] [address] Denzel, Elo [address] [place] [address] 09/19/2024 11:00 AM EDT Office Visit [facility] MEDICINE [address] [place] [address] documented as of this encounter Visit Diagnoses Not on filedocumented in this encounter Care Teams Distributing Clerk Relationship Specialty Start Date End Date Bharati Soriano MD [address] [place] [address] PCP - General Family Medicine 06/14/18 Vasyl Boles MD [address] [place] [address] [place] [phone] Gastroenterology 06/20/24 documented as of this encounter
--- OUTSIDE RECORDS SUMMARY | 2024-08-09 08:44 | XMS_ITS | Encounter Summary ---
Author Organization [employer] [facility] Address [address] [place] [address] 7t [place] [address] Care Team Providers Care Building Maintenance Engineer Name Role Phone Bharati Soriano MD Primary Care Provider [phone]- [phone] Vasyl Boles MD Unavailable [phone] Encounter Details Date Type Department Care Team (Late st Contact Info) Description 10/12/2022 Abstract [facility] MEDICINE [address] [place] [address] Bharati Soriano MD [address] [place] [address] Social History Tobacco Use Types Packs/Day Years [...] Description 09/07/2024 1:00 PM EDT Office Visit [facility] ADULT DENTAL [address] [place] [address] Al Mahoneyaris [address] [place] [address] 09/19/2024 11:00 AM EDT Office Visit [facility] MEDICINE [address] [place] [address] documented as of this encounter Visit Diagnoses Not on filedocumented in this encounter Care Teams Building Maintenance Engineer Relationship Specialty Start Date End Date Bharati Soriano MD [address] [place] [address] PCP - General Family Medicine 06/14/18 Vasyl Boles MD [address] [place] [address] [place] [phone] Gastroenterology 06/20/24 documented as of this encounter
--- OUTSIDE RECORDS SUMMARY | 2024-08-09 08:44 | XMS_ITS | Encounter Summary ---
Author Organization [employer] [facility] Address [address] [place] [address] 7 [place] [address] Care Team Providers Care Breast Buffer Name Role Phone Bharati Soriano MD Primary Care Provider [phone] Vasyl Boles MD Unavailable [phone] Reason for Referral * Medications - Closed Specialty Diagnoses / Procedures Referred By Contac t Referred To Contact Diagnoses Chronic low back pain, unspecified back pain laterality, unspecified whether sciatica present Bharati Soriano MD [address] [place] [address] Phone: tel: fax: Referral ID Status Reason Start Date Expiration Date Visits Re quested Visits Authorized [id number] Closed 1 1 * Imaging (Routine) - Authorized Specialty Diagnoses / Procedures Referred By Contac t Referred To Contact Radiology Diagnoses Osteoporosis, unspecified osteoporosis type, unspecified pathological fracture presence Procedures BD DEXA Axial Bharati Soriano MD [address] [place] [address] Phone: tel: fax: [facility] [address] [place] [address] Phone: tel: fax: Referral ID Status Reason Start Date Expiration Date V isits Requested Visits Authorized [id number] Authorized 07/12/2024 07/12/2025 1 1 * Imaging (Routine) - Authorized Specialty Diagnoses / Procedures Referred By Enrrique t Referred To Contact Radiology Diagnoses Chronic type B viral hepatitis (CMS/HCC) Procedures US Abdomen Complete Bharati Soriano MD [address] [place] [phone] Phone: tel: fax: [address] Phone: tel: fax: Referral ID Status Reason Start Date Expiration Date V isits Requested Visits Authorized [id number] Authorized 07/12/2024 07/12/2025 1 1 * Consultation (Routine) - Authorized Specialty Diagnoses / Procedures Referred By Enrrique tineo Referred To Contact Rheumatology Diagnoses Other forms of systemic lupus erythematosus, unspecified organ involvement status (CMS/HCC) Bharati Soriano MD [address] [place] [address] Phone: tel: fax: [facility] [address] [place] [address] Phone: tel: fax: Referral ID Status Reason Start Date Expiration Date Visits Requested Visits Authorized [id number] Authorized Specialty Services Required 07/12/2024 07/12/2025 1 1 Reason for Visit * Reason Comments Annual Exam Pt stated that she i s having incontinence #2 currently and pt is feeling a little embarrassed Encounter Details Date Type Department Care Team (Late st Contact Info) Description 07/12/2024 2:45 PM EST Office Visit [facility] [address] [place] [phone] Bharati Soriano MD [address] [place] [phone] Other forms of systemic lupus erythematosus, unspecified organ involvement status (CMS/HCC) (Primary Dx); Chronic type B viral hepatitis (CMS/HCC); Hypertension, unspecified type; Chronic low back pain, unspecified back pain laterality, unspecified whether sciatica present; Osteoporosis, unspecified osteoporosis type, unspecified pathological fracture presence; Candidiasis; Cystitis; Red-colored urine; Impacted cerumen of right ear; Overweight; Dietary counseling; Exercise counseling; Encounter for immunization; Other specified health status Social History Tobacco Use Types Packs/Day Years [...] AM EDT documented as of this encounter Last Filed Vital Signs Vital Sign Reading [...] Mass Index 25.19 07/12/2024 2:58 PM EST documented in this encounter Progress Notes * Bharati Soriano MD - 07/12/2024 2:45 PM EST Gill Ruiz is a 68 y.o. female with past medical history of lupus, rectal carcinoma s/p radiation andchemotherapy in 2008, hx tubular adenoma of colon, Chronic Hep B, SLE, hx of GI bleed, hypertension, Dyslipidemia, Hypothyroidism, and Anxiety who presents to the office today for chronic medical conditions and comprehensive annual evaluation. [facility] Follows with N. Pt reports she continues to have fecal and urinary incontinence after radiation. She is still taking Fosamax weekly for her osteoporosis. Needs a referral for rheumatology because her marketing analyst left the area. Social History Tobacco: denied Drugs: none Alcohol: No Suicide/Depression: The patient denies any present symptoms of depression or anxiety. Review of Systems Constitutional: Negative for fatigue, fever and unexpected weight change. Respiratory: Negative for cough. Cardiovascular: Negative for chest pain. Gastrointestinal: Negative for abdominal pain. Genitourinary: Negative for difficulty urinating. Current Outpatient Medications: acetaminophen (Tylenol) 500 MG tablet, Take 500 mg by mouth every 8 (eight) hours if needed., Disp:, Rfl: albuterol (Ventolin HFA) 108 (90 Base) MCG/ACT inhaler, TAKE 2 PUFFS BY MOUTH EVERY 4-6 HOURS NEEDED, Disp: 18 g, Rfl: 1 alendronate (Fosamax) 70 MG tablet, TAKE 1 TABLET BY MOUTH EVERY WEEK IN THE MORNING, AT LEAST 30 MIN BEFORE FOOD, BEVERAGE, OR MEDICATION.TAKE WITH 8 OZ WATER. REMAIN UPRIGHT AT LEAST 30 MIN AFTER TAKING MEDICATION, Disp: 12 tablet, Rfl: 3 amLODIPine (Norvasc) 10 MG tablet, Take 10 mg by mouth Once per day., Disp: , Rfl: carbamide peroxide (Debrox) 6.5 % otic solution, Administer 5-10 drops into affected ear(s) 2 timesdaily for 4 days., Disp: 30 mL, Rfl: 0 clotrimazole (Lotrimin) 1 % vaginal cream, Insert one applicator per vagina at bedtime for 7 nights, Disp: 45 g, Rfl: 0 Diaper Rash Products (A+D Diaper Rash) cream, Apply 1 application topically if needed in the morning and at bedtime (prn rash)., Disp: 45 g, Rfl: 3 hydroxychloroquine (Plaquenil) 200 MG tablet, Take 1 tablet by mouth in the morning., Disp: , Rfl: levothyroxine (Synthroid, Levoxyl) 25 MCG tablet, TAKE 1 TABLET BY MOUTH EVERY DAY, Disp: 90 tablet, Rfl: 3 levothyroxine (Synthroid, Levoxyl) 25 MCG tablet, Take 25 mcg by mouth., Disp: , Rfl: lidocaine (Lidoderm) 5 % patch, Apply 1 patch topically Once per day. Remove & discard patch within 12 hours or as directed by MD., Disp: 15 patch, Rfl: 2 loperamide (Imodium) 2 MG capsule, TAKE 1 CAPSULE (2 MG) BY MOUTH EVERY 6 (SIX) HOURS IF NEEDED FORDIARRHEA., Disp: 30 capsule, Rfl: 0 losartan (Cozaar) 25 MG tablet, Take 1 tablet by mouth in the morning., Disp: , Rfl: omeprazole (PriLOSEC) [address] capsule, TAKE 1 CAP (20 MG) BY MOUTH BEFORE BREAKFAST DO NOT CRUSH, CHEW, OR SPLIT, Disp: 90 capsule, Rfl: 1 oxyCODONE-acetaminophen (Percocet) 5-325 MG tablet, Take 1 tablet by mouth every 6 (six) hours if needed for severe pain for up to 28 days., Disp: 84 tablet, Rfl: 0 phenazopyridine (Pyridium) 100 MG tablet, Take 1 tablet (100 mg) by mouth if needed in the morning,at noon, and at bedtime for bladder spasms for up to 2 days., Disp: 6 tablet, Rfl: 0 pravastatin (Pravachol) 20 MG tablet, TAKE 1 TABLET BY MOUTH EVERYDAY AT BEDTIME, Disp: 90 tablet, Rfl: 3 traZODone (Desyrel) 100 MG tablet, Take 1 tablet (100 mg) by mouth at bedtime., Disp: 90 tablet, Rfl: 3 Allergies Allergen Reactions Aspirin GI bleeding Other reaction(s): Unknown Other reaction(s): bleeding Lisinopril Unknown Other reaction(s): throat itching Metoprolol Other reaction(s): throat itching, Unknown Nsaids GI bleeding Other reaction(s): bleeding, Unknown Simvastatin Other reaction(s): abdominal pain, Unknown Past Medical History: Diagnosis Date Arthritis Asthma Chronic type B viral hepatitis (CMS/HCC) 04/04/2012 VL 799 IU/mL, 2.90 log on 05/23/18 LFT's normal on 07/14/18 Currently on Plaquenil for lupus Disease of thyroid gland Dyslipidemia 12/17/2011 Lab Results Component Value Date CHOLESTEROL 196 10/20/2022 LDLCHOL 84 10/20/2022 LDLCHOL 101 (H) 05/01/2021 TRIG 109 10/20/2022 HDLCHOL 91 10/20/2022 CHOLHDLRAT 2.2 10/20/2022 -continue lifestyle modifications Gastroesophageal reflux disease without esophagitis 12/06/2012 GERD (gastroesophageal reflux disease) History of colon cancer History of squamous cell carcinoma 12/06/2012 -Hx rectal carcinoma s/p radiation and chemotherapy in 2008 -s/p oncology with Dr. 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 Followed by rheumatology. Lat note from Dr. Flores 04/06/23 reviewed. -Plaquenil 200mgBID started 04/2018 -continue regular eye exams -s/p flu vaccine 02/2020 done at [facility] -PCV 23 04/2019 Osteoporosis Tubular adenoma of colon 06/15/2012 -On colonoscopy 02/2017 and 03/20/[address] Boles Vitamin D deficiency 12/22/2023 Past Surgical History: Procedure Laterality Date HYSTERECTOMY 2014 Family History Problem Relation Name Age of Onset Breast cancer Sister Cancer Maternal Grandmother Objective Visit Vitals BP 116/82 (BP Location: Left arm, Patient Position: Sitting, BP Cuff Size: Adult) Pulse 110 Temp 96.9 ??F (36.1 ??C) (Temporal) Resp 20 Ht 5' (1.524 m) Wt 129 lb (58.5 kg) SpO2 98% BMI 25.19 kg/m?? Smoking Status Never BSA 1.57 m?? Physical Exam Constitutional: Appearance: Normal appearance. HENT: Head: Normocephalic. Right Ear: Tympanic membrane normal. Left Ear: Tympanic membrane normal. Mouth/Throat: Pharynx: Oropharynx is clear. Eyes: Pupils: Pupils are equal, round, and reactive to light. Cardiovascular: Rate and Rhythm: Normal rate and regular rhythm. Heart sounds: Normal heart sounds. Pulmonary: Effort: Pulmonary effort is normal. Breath sounds: Normal breath sounds. Abdominal: General: Abdomen is flat. Palpations: There is no mass. Tenderness: There is no abdominal tenderness. Musculoskeletal: General: Normal range of motion. Cervical back: Normal range of motion and neck supple. Lymphadenopathy: Cervical: No cervical adenopathy. Skin: General: Skin is warm and dry. Neurological: General: No focal deficit present. Mental Status: She is alert. Psychiatric: Behavior: Behavior normal. 68 y.o. female annual evaluation. 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 Followed by rheumatology. Lat note from Dr. Flores 04/06/23 reviewed. -Plaquenil 200mg BID started 04/2018 -continue regular eye exams -s/p flu vaccine 02/2020 done at [facility] -PCV 23 04/2019 -Referred to new marketing analyst 07/12/24 Relevant Orders Referral to Rheumatology Chronic type B viral hepatitis (CMS/HCC) VL 799 IU/mL, 2.90 log on 05/23/18 LFT's normal on 07/14/18 Currently on Plaquenil for lupus VL 93 international units/mbl, 1.97 log on 04/26/24 AFP 6.3 ng/mL on 04/26/24 Ordered US 07/12/24 Relevant Orders US Abdomen Complete Hypertension -Blood pressure is at goal -Continue lifestyle modifications -Continue current medications Chronic low back pain [facility] with [facility].Per last notes: Good engagement and participation with Group Medical Visit model Encouraged multifactorial approach to pain control including pharm and non-pharm modalities Pill count as expected today, utox with positive for fentanyl and benzo, unexpected, sendout urine for confirmatory testing Followup every 3 months with pill count and utox prescribed lidocaine (Lidoderm) 5 % patch 07/12/24 Relevant Medications lidocaine (Lidoderm) 5 % patch Osteoporosis Final Menstrual Period: Symptoms: Risk factors for [...] include magnesium, omega-3 -DEXA ordered 07/12/24 Results: Relevant Orders BD DEXA Axial Candidiasis Reports recurrent candidiasis, had relief with clotrimazole. -refilled lotrimazole (Lotrimin) 1 % vaginal cream 07/12/24 Relevant Medications clotrimazole (Lotrimin) 1 % vaginal cream Cystitis Reports blood-tinged urine, hx of cystitis. -sent UA and culture 07/12/24 -prescribed phenazopyridine (Pyridium) 100 MG tablet Relevant Medications phenazopyridine (Pyridium) 100 MG tablet Red-colored urine Reports blood-tinged urine, hx of cystitis. -sent UA and culture 07/12/24 -prescribed phenazopyridine (Pyridium) 100 MG tablet Relevant Orders Urinalysis, Complete, with Reflex to Culture Impacted cerumen of right ear Right ear impacted on exam. -prescribed carbamide peroxide (Debrox) 6.5 % otic solution 1/29/25 Relevant Medications carbamide peroxide (Debrox) 6.5 % otic solution Overweight Discussed weight, diet, exercise with patient in relation to health conditions. Used motivational interviewing to illicit change talk and established initial goals with patient. Dietary counseling Dietary Recommendations: Fruits, vegetables, whole grains, protein foods, and fat-free or low-fat dairy products are healthychoices. Eat different types of protein foods in your diet. This can include seafood, lean meats, poultry, beans, peas, lentils, nuts, seeds, soy products, and eggs. Limit foods and beverages higher in added sugars, saturated fat, and sodium. Exercise counseling Exercise Recommendations: At least 150 minutes of moderate-intensity physical activity per week, or an equivalent combinationof moderate- and vigorous-intensity activity Other specified health status -next comprehensive annual evaluation due after 07/12/25 -eye care facilitated by [facility] -dental home is [facility] -Health care proxy given and filed 12/22/23 Other Visit Diagnoses Encounter for immunization Relevant Orders FLU VACCINE TRIVALENT (Fluarix) 6 mo + (Completed) Annual Evaluation -Normal growth and development. -Anticipatory guidance discussed. -Preventative care / harm reduction discussed. Follow up in about 6 months (around 01/09/2025) for chronic conditions. I, Nigel Jensen, am serving as a scribe to document services personally performed by Dr. Rosas, based on the patient's response to questions by provider and providers statements to me. documented in this encounter Miscellaneous Notes * Assessment & Plan Note - Nigel Jensen - 07/12/2024 4:16 PM ESTAssociated Problem(s): Red-colored urine Reports blood-tinged urine, hx of cystitis. -sent UA and culture 07/12/24 -prescribed phenazopyridine (Pyridium) 100 MG tablet * Assessment & Plan Note - Nigel Jensen - 07/12/2024 4:16 PM ESTAssociated Problem(s): Cystitis Reports blood-tinged urine, hx of cystitis. -sent UA and culture 07/12/24 -prescribed phenazopyridine (Pyridium) 100 MG tablet * Assessment & Plan Note - Nigel Jensen - 07/12/2024 4:15 PM ESTAssociated Problem(s): Osteoporosis Final Menstrual Period: Symptoms: Risk factors for [...] include magnesium, omega-3 -DEXA ordered 07/12/24 Results: * Assessment & Plan Note - Nigel Jensen - 07/12/2024 4:14 PM ESTAssociated Problem(s): Overweight Discussed weight, diet, exercise with patient in relation to health conditions. Used motivational interviewing to illicit change talk and established initial goals with patient. * Assessment & Plan Note - Nigel Jensen - 07/12/2024 4:13 PM ESTAssociated Problem(s): Candidiasis Reports recurrent candidiasis, had relief with clotrimazole. -refilled lotrimazole (Lotrimin) 1 % vaginal cream 07/12/24 * Assessment & Plan Note - Nigel Jensen - 07/12/2024 4:12 PM ESTAssociated Problem(s): Impacted cerumen of right ear Right ear impacted on exam. -prescribed carbamide peroxide (Debrox) 6.5 % otic solution 07/12/24 * Assessment & Plan Note - Nigel Jensen - 07/12/2024 4:11 PM ESTAssociated Problem(s): Exercise counseling Exercise Recommendations: At least 150 minutes of moderate-intensity physical activity per week, or an equivalent combinationof moderate- and vigorous-intensity activity * Assessment & Plan Note - Nigel Jensen - 07/12/2024 4:11 PM ESTAssociated Problem(s): Dietary counseling Dietary Recommendations: Fruits, vegetables, whole grains, protein foods, and fat-free or low-fat dairy products are healthychoices. Eat different types of protein foods in your diet. This can include seafood, lean meats, poultry, beans, peas, lentils, nuts, seeds, soy products, and eggs. Limit foods and beverages higher in added sugars, saturated fat, and sodium. 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 Followed by rheumatology. Lat note from Dr. Flores 04/06/23 reviewed. -Plaquenil 200mg BID started 04/2018 -continue regular eye exams -s/p flu vaccine 02/2020 done at [facility] -PCV 23 04/2019 -Referred to new marketing analyst 07/12/24 * Assessment & Plan Note - Nigel Jensen - 07/12/2024 4:09 PM ESTAssociated Problem(s): Chronic low back pain [facility].Per last notes: Good engagement and participation with Group Medical Visit model Encouraged multifactorial approach to pain control including pharm and non-pharm modalities Pill count as expected today, utox with positive for fentanyl and benzo, unexpected, sendout urine for confirmatory testing Followup every 3 months with pill count and utox prescribed lidocaine (Lidoderm) 5 % patch 07/12/24 * Assessment & Plan Note - Nigel Jensen - 07/12/2024 4:06 PM ESTAssociated Problem(s): Hypertension -Blood pressure is at goal -Continue lifestyle modifications -Continue current medications * Assessment & Plan Note - Nigel Jensen - 07/12/2024 3:40 PM ESTAssociated Problem(s): Chronic type B viral hepatitis (CMS/HCC) VL 799 IU/mL, 2.90 log on 05/23/18 LFT's normal on 07/14/18 Currently on Plaquenil for lupus VL 93 international units/mbl, 1.97 log on 04/26/24 AFP 6.3 ng/mL on 04/26/24 Ordered US 07/12/24 documented in this encounter Plan of Treatment Upcoming Encounters Date Type Department Care Team (Late st Contact Info) Description 09/07/2024 1:00 PM EDT Office Visit [facility] [address] [place] [address] Denzel Elo [address] [place] [address] 09/19/2024 11:00 AM EDT Office Visit [facility] [address] [place] [address] Scheduled Orders Name Type Priority Associated Diagnoses Orde r Schedule US Abdomen Complete Imaging Routine Chronic type B viral hepatitis (CMS/HCC) Expected: 07/12/2024, Expires: 07/12/2025 BD DEXA Axial Imaging Routine Osteoporosis, unspecified osteoporosis type, unspecified pathological fracture presence Expected: 07/12/2024, Expires: 07/12/2025 Urinalysis, Complete, with Reflex to Culture Lab Routine Red-colored urine Expected: 07/12/2024 (Approximate), Expires: 07/12/2025 Scheduled Referrals Name Type Priority Associated Diagnoses Orde r Schedule Referral to Rheumatology Outpatient Referral Routine Other forms of systemic lupus erythematosus, unspecified organ involvement status (CMS/HCC) Expected: 07/12/2024 (Approximate), Expires: 07/12/2025 documented as of this encounter Visit Diagnoses Diagnosis Other forms of systemic lupus erythematosus, unspecified organ involvement status (CMS/HCC)- Primary Chronic type B viral hepatitis (CMS/HCC) Viral hepatitis B without mention of hepatic coma, chronic, without mention of hepatitis delta Hypertension, unspecified type Chronic low back pain, unspecified back pain laterality, unspecified whether sciatica present Osteoporosis, unspecified osteoporosis type, unspecified pathological fracture presence Candidiasis Cystitis Unspecified cystitis Red-colored urine Impacted cerumen of right ear Impacted cerumen Overweight Dietary counseling Dietary surveillance and counseling Exercise counseling Encounter for immunization Other specified health status documented in this encounter Additional Health Concerns Assessment Noted Time PHQ-9 Depression Total Score: 1 01/14/20 24 10:00 AM EDT documented as of this encounter Care Teams Breast Buffer Relationship Specialty Start Date End Date Bharati Soriano MD [address] [place] [address] PCP - General Family Medicine 06/14/18 Vasyl Boles MD [address] [place] [address] [place] [phone] Gastroenterology 06/20/24 documented as of this encounter
--- OUTSIDE RECORDS SUMMARY | 2024-08-09 08:44 | XMS_ITS | Encounter Summary ---
Author Organization [employer] Address [address] [facility] [address] [place] [address] Care Team Providers Care Preschool Aide Name Role Phone Bharati Soriano MD Primary Care Provider [phone] Vasyl Boles MD Unavailable [phone] Encounter Details Date Type Department Care Team ([facility] st Contact Info) Description 07/11/2024 Telephone [facility] [address] [place] [address] Jocelyn Randall, JÚNIOR [address] [place] [address] Social History Tobacco Use Types Packs/Day Years [...] PM EDT Office Visit [facility] [address] [place] [address] Denzel, Elo [address] [place] [address] 09/19/2024 11:00 AM EDT Office Visit [facility] [address] [place] [address] documented as of this encounter Visit Diagnoses Not on filedocumented in this encounter Additional Health Concerns Assessment Noted Time PHQ-9 Depression Total Score: 1 01/14/20 24 10:00 AM EDT documented as of this encounter Care Teams Preschool Aide Relationship Specialty Start Date End Date Bharati Soriano MD [address] [place] [id number] PCP - General Family Medicine 06/14/18 Vasyl Boles MD [address] [place] [phone] Gastroenterology 06/20/24 documented as of this encounter
--- OUTSIDE RECORDS SUMMARY | 2024-08-09 08:46 | XMS_ITS | Encounter Summary ---
Author Organization [facility] Address [address] [place] [address] [address] [place] [address] Care Team Providers Care Flitch Hanger Name Role Phone Bharati Soriano MD Primary Care Provider [phone] Vasyl Boles MD Unavailable [phone] Encounter Details Date Type Department Care Team (Latest Contact Info) Description 06/29/2018 Abstract [facility] CONVERSIONS Dental, Provider, DDS Social History [...] 09/07/2024 1:00 PM EDT Office Visit [facility] ADULT D[facility] [address] [place] [address] Denzel, Elo [address] [place] [address] 09/19/2024 11:00 AM EDT Office Visit [facility] [address] [place] [address] documented as of this encounter Visit Diagnoses Not on filedocumented in this encounter Care Teams Flitch Hanger Relationship Specialty Start Date End Date Bharati Soriano MD [address] [place] [address] PCP - General Family Medicine 06/14/18 Vasyl Boles MD [address] [place] [address] [address] [place] [phone] Gastroenterology 06/20/24 documented as of this encounter
--- OUTSIDE RECORDS SUMMARY | 2024-08-09 08:46 | XMS_ITS | Encounter Summary ---
Author Organization [facility] Address [address] [facility] 7t [place] [address] Care Team Providers Care Unit Assistant Name Role Phone Bharati Soriano MD Primary Care Provider +1- [phone] Vasyl Boles MD Unavailable [phone] Encounter Details Date Type Department Care Team ([facility] st Contact Info) Description 05/30/2024 Telephone [facility] MEDICINE [address] [place], [place] [phone] Bharati Soriano MD 230 [place], [place] [phone] Social History Tobacco Use Types Packs/Day Years [...] 1:00 PM EDT Office Visit [facility] ADULT DENTAL 230 [place] [address] Denzel, Elo [address] [place] [address] 09/19/2024 11:00 AM EDT Office Visit [facility] [address] [place] [address] documented as of this encounter Visit Diagnoses Not on filedocumented in this encounter Additional Health Concerns Assessment Noted Time PHQ-9 Depression Total Score: 1 01/14/20 24 10:00 AM EDT documented as of this encounter Care Teams Unit Assistant Relationship Specialty Start Date End Date Bharati Soriano MD 230 [place] [address] PCP - General Family Medicine 06/14/18 Vasyl Boles MD [address] [place] [address] [place] [phone] Gastroenterology 06/20/24 documented as of this encounter
--- OUTSIDE RECORDS SUMMARY | 2024-08-09 08:46 | XMS_ITS | Encounter Summary ---
Author Organization [employer] Address [address] [facility] 7t [place] [address] Care Team Providers Care Drawer Liner Name Role Phone Bharati Soriano MD Primary Care Provider +1- [phone] Vasyl Boles MD Unavailable [phone] Reason for Visit * Reason Comments Med Refill Encounter Details Date Type Department Care Team (Late st Contact Info) Description 05/10/2024 Refill [facility] MEDICINE 230 [place] [address] Bharati Soriano MD 230 [place] [address] Dyslipidemia; Other osteoporosis without current pathological fracture; [...] 1:00 PM EDT Office Visit [facility] ADULT DENTAL 230 [place] [address] Denzel, Elo 230 [place] [address] 09/19/2024 11:00 AM EDT Office Visit [facility] MEDICINE 230 [place] [address] documented as of this encounter Visit Diagnoses Diagnosis Dyslipidemia Other and unspecified hyperlipidemia Other osteoporosis without current pathological fracture Mild intermittent asthma, unspecified whether complicated documented in this encounter Additional Health Concerns Assessment Noted Time PHQ-9 Depression Total Score: 1 01/14/20 24 10:00 AM EDT documented as of this encounter Care Teams Drawer Liner Relationship Specialty Start Date End Date Bharati Soriano MD 230 [place] [address] PCP - General Family Medicine 06/14/18 Vasyl Boles MD [address] [place] [phone] Gastroenterology 06/20/24 documented as of this encounter
--- OUTSIDE RECORDS SUMMARY | 2024-08-09 08:46 | XMS_ITS | Encounter Summary ---
Author Organization [facility] Address 75 [facility] 7t [place] [address] Care Team Providers Care Mica Miner Blasting Name Role Phone Bharati Soriano MD Primary Care Provider +1- [phone] Vasyl Boles MD Unavailable [phone] Encounter Details Date Type Department Care Team (Late st Contact Info) Description 08/01/2024 Orders Only [facility] MEDICINE 230 [place], [place] [phone] Bharati Soriano MD 230 [place], [place] [phone] Primary hypertension; Chronic renal impairment, stage 2 (mild) Social History Tobacco Use Types Packs/Day Years [...] 09/07/2024 1:00 PM EDT Office Visit [facility] ADULT DENTAL 230 [place] [address] Denzel, Elo 230 [place] [address] 09/19/2024 11:00 AM EDT Office Visit [facility] MEDICINE 230 [place] [address] documented as of this encounter Visit Diagnoses Diagnosis Primary hypertension Unspecified essential hypertension Chronic renal impairment, stage 2 (mild) documented in this encounter Additional Health Concerns Assessment Noted Time PHQ-9 Depression Total Score: 1 01/14/20 24 10:00 AM EDT documented as of this encounter Care Teams Mica Miner Blasting Relationship Specialty Start Date End Date Bharati Soriano MD 230 [place] [address] PCP - General Family Medicine 06/14/18 Vasyl Boles MD [address] [place] [address] [place] [phone] Gastroenterology 06/20/24 documented as of this encounter
--- OUTSIDE RECORDS SUMMARY | 2024-08-09 08:46 | XMS_ITS | Encounter Summary ---
Author Organization [employer] Address 75 [facility] 7 [place] [address] Care Team Providers Care Sweatband Maker Name Role Phone Bharati Soriano MD Primary Care Provider +1- [phone] Vasyl Boles MD Unavailable [phone] Reason for Visit * Reason Onset Date Comments Prior Authorization 07/24/2024 Lidocaine 5% patch Encounter Details Date Type Department Care Team (Late st Contact Info) Description 07/24/2024 Telephone [facility] MEDICINE 230 [place], [place] [phone] Bharati Soriano MD 230 [place], [place] [phone] Prior Authorization (Lidocaine 5% patch) Social History Tobacco Use Types Packs/Day Years [...] encounter Miscellaneous Notes * Telephone Encounter - Karin Ponce - 07/27/2024 11:37 AM EST PA approval received for Lidocaine 5% patches. Scanned into media. * Telephone Encounter - Karin Ponce - 07/24/2024 10:00 AM EST PA initiated on Covermymeds for Lidocaine 5% patches . Approval/denial pending. documented in this encounter Plan of Treatment Upcoming Encounters Date Type Department Care Team (Late st Contact Info) Description 09/07/2024 1:00 PM EDT Office Visit [facility] ADULT DENTAL [address] [place] [address] Elo Mahoney [address] [place] [address] 09/19/2024 11:00 AM EDT Office Visit [facility] MEDICINE 230 [place] [address] documented as of this encounter Visit Diagnoses Not on filedocumented in this encounter Additional Health Concerns Assessment Noted Time PHQ-9 Depression Total Score: 1 01/14/20 24 10:00 AM EDT documented as of this encounter Care Teams Sweatband Maker Relationship Specialty Start Date End Date Bharati Soriano MD 230 [place] [address] PCP - General Family Medicine 06/14/18 Vasyl Boles MD [address] [place] [phone] Gastroenterology 06/20/24 documented as of this encounter
--- OUTSIDE RECORDS SUMMARY | 2024-08-09 08:46 | XMS_ITS | Encounter Summary ---
Author Organization [employer] Address 75 [facility] 7t [place] [address] Care Team Providers Care Apartment Maintenance Name Role Phone Bharati Soriano MD Primary Care Provider [phone]- [phone] Vasyl Boles MD Unavailable [phone] Encounter Details Date Type Department Care Team (Late st Contact Info) Description 08/01/2024 Orders Only [facility] MEDICINE 230 [place] [address] Rosi Vergara MD 230 [place], [place] [phone] Primary hypertension; Chronic renal impairment, stage 2 [...] Description 09/07/2024 1:00 PM EDT Office Visit [facility] ADULT DENTAL 230 [place] [address] Denzel, Elo 230 [place] [address] 09/19/2024 11:00 AM EDT Office Visit [facility] MEDICINE [address] [place] [address] documented as of this encounter Visit Diagnoses Diagnosis Primary hypertension Unspecified essential hypertension Chronic renal impairment, stage 2 (mild) documented in this encounter Additional Health Concerns Assessment Noted Time PHQ-9 Depression Total Score: 1 01/14/20 24 10:00 AM EDT documented as of this encounter Care Teams Apartment Maintenance Relationship Specialty Start Date End Date Bharati Soriano MD 230 [place] [address] PCP - General Family Medicine 06/14/18 Vasyl Boles MD [address] [place] [address] [place] [phone] Gastroenterology 06/20/24 documented as of this encounter
--- OUTSIDE RECORDS SUMMARY | 2024-08-09 08:46 | XMS_ITS | Encounter Summary ---
Author Organization [facility] Address [address] [place] [address] 7 [place] [address] Care Team Providers Care Director Of Integrated Marketing Name Role Phone Bharati Soriano MD Primary Care Provider [phone]- [phone] Vasyl Boles MD Unavailable [phone] Encounter Details Date Type Department Care Team (Latest Contact Info) Description 08/23/2019 Abstract [facility] CONVERSIONS Dental, Provider, DDS Social [...] Description 09/07/2024 1:00 PM EDT Office Visit [facility] ADULT DENTAL [address] [place] [address] Denzel, Elo [address] [place] [address] 09/19/2024 11:00 AM EDT Office Visit [facility] MEDICINE [address] [place] [address] documented as of this encounter Visit Diagnoses Not on filedocumented in this encounter Care Teams Director Of Integrated Marketing Relationship Specialty Start Date End Date Bharati Soriano MD 230 [place] [address] PCP - General Family Medicine 06/14/18 Vasyl Boles MD [address] [place] [address] [address] [place] [phone] Gastroenterology 06/20/24 documented as of this encounter
--- OUTSIDE RECORDS SUMMARY | 2024-08-09 08:46 | XMS_ITS | Encounter Summary ---
Author Organization [employer] Address [address] [facility] [address] 7t [place] [address] Care Team Providers Care Rental Boats Caretaker Name Role Phone Bharati Soriano MD Primary Care Provider [phone]- [phone] Vasyl Boles MD Unavailable [phone] Encounter Details Date Type Department Care Team (Late st Contact Info) Description 09/29/2023 Orders Only [facility] 230 [place], [place] [phone] Bryon Fuller MD 230 [place], [place] [phone] Social History Tobacco Use Types Packs/Day Years [...] Description 09/07/2024 1:00 PM EDT Office Visit [facility] ADULT DENTAL 230 [place] [address] Al Mahoneyaris 230 [place] [address] 09/19/2024 11:00 AM EDT Office Visit [facility] MEDICINE [address] [place] [address] documented as of this encounter Visit Diagnoses Not on filedocumented in this encounter Additional Health Concerns Assessment Noted Time PHQ-9 Depression Total Score: 0 10/16/19 23 2:27 PM EDT documented as of this encounter Care Teams Rental Boats Caretaker Relationship Specialty Start Date End Date Bharati Soriano MD [address] [place] [address] PCP - General Family Medicine 06/14/18 Vasyl Boles MD [address] [place] [phone] Gastroenterology 06/20/24 documented as of this encounter
--- OUTSIDE RECORDS SUMMARY | 2024-08-09 08:46 | XMS_ITS | Clinical Summary ---
Author Organization [facility] Address [address] [place] [address] Care Team Providers Care Gum Machine Filler Name Role Phone Bharati Soriano MD Primary Care Provider U navailable Family [...] Last Done Comments Breast Cancer Screening 1953 Colorectal Cancer Screening: Annual FOBT 2002 Colorectal Cancer Screening: Colonoscopy 2002 Colorectal Cancer Screening: Sigmoidoscopy 2002 Hepatitis B Vaccine (1 of 3 - Risk 3-dose series) 2013 Diabetes: Ophthalmology Exam 07/14/2020 Diabetes: Pedal Pulse Checked 07/14/2020 Diabetes: Sensory Foot Exam 07/14/2020 Diabetes: Visual Foot Exam 07/14/2020 Diabetes: Hemoglobin A1C 08/01/2020 05/01/2020 Pneumococcal Vaccine: 65+ Years Completed 05/01/2020, 05/01/2020, 07/28/2018 Influenza Vaccine Completed 07/12/2024, , 03/13/2020, Additional history exists Procedures Procedure Name Priority Date/Time Associated Diagnosis [...] Recently Relevant to Health Maintenance Care Teams Gum Machine Filler Relationship Specialty Start Date End Date Bharati Soriano MD PCP - General 06/24/20
--- OUTSIDE RECORDS SUMMARY | 2024-08-09 08:46 | XMS_ITS | Encounter Summary ---
Author Organization [employer] Address 75 [facility] 7t [place] [address] Care Team Providers Care Home Office Claim Specialist Name Role Phone Bharati Soriano MD Primary Care Provider +1- [phone] Vasyl Boles MD Unavailable [phone] Reason for Visit * Reason Onset Date Comments Med Refill 07/26/2024 Encounter Details Date Type Department Care Team (Late st Contact Info) Description 07/26/2024 Refill [facility] MEDICINE 230 [place], [place] [phone] Bharati Soriano MD 230 [place], [place] [phone] Pain Social History Tobacco Use Types Packs/Day [...] Telephone Encounter - Katie Gonzalez RN - 08/02/2024 11:08 AM EST PCP re-sent losartan 25mg BID Rx. Called [facility] pharmacy on file, spoke with Fara who confirmed that pt has been taking losartan 25mg BID prescribed by Dr Sky Estrada. Pharmacy to discontinue daily losartan Rxs as these were discontinued on med list by PCP as well. Called pt to advise. Pt verbalized understanding. Pt then asked about refill on Percocet Rx, states she is due tomorrow. Advised will send message toCST nurse. Pt in agreement. * Telephone Encounter - Katie Gonzalez RN - 08/02/2024 8:56 AM EST Telephone call to pt to advise that refill on losartan 25mg was sent to [facility] pharmacy on file with 3refills, reviewed instructions: take 1 tablet once per day. Pt stated no, I've been taking 2 tablets for 6-10 years, one in the AM and one in the PM. Advised her that the medication instructions sent were the same as the Rx on file from nephrology (1 tab daily). Pt expressed concern over impact to BP. Advised her message would be sent to PCP for guidance. Pt in agreement, no further questions. * Telephone Encounter - Katie Gonzalez RN - 08/01/2024 10:41 AM EST Called pt who stated that although her prescription for losartan 25mg has been prescribed by Dr Sky Estrada for roughly 4-5 years, she has not seen him in several years and he left the practice. Pt states I graduated from him, he said I don't need to see him anymore , denies seeing other nephrologists at the practice. She is asking for PCP to prescribe losartan 25mg and says it helps with her blood pressure. Advised her message would be sent to covering provider for PCP. Pt verbalized understanding. Pt saw PCP on 07/12/24. From office visit: Hypertension -Blood pressure is at goal -Continue lifestyle modifications -Continue current medications * Telephone Encounter - Quyen Nation - 08/01/2024 8:44 AM EST Tc from pt requesting a callback regarding medication. Pt states don't see for years. [phone] * Telephone Encounter - Lynette Valdes LPN - 07/26/2024 3:49 PM EST Medication is prescribed by Sky Estrada. * Telephone Encounter - Elena Finney - 07/26/2024 3:47 PM EST TC from pt requesting medication refill. Medications needing refill : losartan (Cozaar) 25 MG tablet To be sent to: [facility]/pharmacy #[id number] documented in this encounter Plan of Treatment Upcoming Encounters Date Type Department Care Team (Late st Contact Info) Description 09/07/2024 1:00 PM EDT Office Visit [facility] ADULT DENTAL 230 [place] [address] Al Mahoneyaris [address] [place] [address] 09/19/2024 11:00 AM EDT Office Visit [facility] MEDICINE 230 [place] [address] documented as of this encounter Visit Diagnoses Diagnosis Pain Generalized pain documented in this encounter Additional Health Concerns Assessment Noted Time PHQ-9 Depression Total Score: 1 01/14/20 24 10:00 AM EDT documented as of this encounter Care Teams Home Office Claim Specialist Relationship Specialty Start Date End Date Bharati Soriano MD [address] [place] [address] PCP - General Family Medicine 06/14/18 Vasyl Boles MD [address] [place] [address] [place] [phone] Gastroenterology 06/20/24 documented as of this encounter
--- OUTSIDE RECORDS SUMMARY | 2024-08-09 08:46 | XMS_ITS | Patient Health Record ---
Author Organization [facility] Address [address] [place] [address] Care Team Providers Care Agile Developer Name Role Phone Bharati Soriano MD Primary Care Provider Vasyl Simon Jr Unavailable ALLERGIES Allergen (clinical drug ingredient) Drug/Non Drug Allergy documented on EMR Reaction Allergy Type Onset Date Status Metoprolol Succinate Unknown Drug Allergy Active lisinopril Lisinopril Unknown Drug Allergy Activ e Aspir-81 Unknown Drug Allergy Active Non-steroidal anti-inflammatory agent (FN) NSAIDS (uncoded) Unknown Allergy Active Simvastatin Unknown Drug Allergy Activ e REASON FOR REFERRAL No Information MEDICATIONS Medication [...] 100 MG TAKE 1 TABLET BY [facility] EVERY DAY AT BEDTIME Oral for 90 [...] Problem Colon cancer screening (Z12.11) Active confirmed 587624109 Problem Radiation proctitis (K62.7) Active confirmed 523788759 Problem Gastroesophageal reflux disease without esophagitis (K21.9) Active confirmed 426158743 Problem 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) Active confirmed History of malignant neoplasm of rectum (504573652) Problem Incontinence of feces, unspecified fecal incontinence type (R15.9) Active confirmed 95891441 Encounters Encounter Location Date Provider Diagnosis [facility] [address] [place] [address] 09/20/2023 Vasyl Boles Jr PLAN OF TREATMENT Future Test Test Name Order Date COLONOSCOPY 07/14/2018 COLONOSCOPY 12/25/2021 Insurance Providers Payer Name Payer Address Payer Phone Subscriber Number Group Number Insured Name Patient Relationship to Insured Coverage Start Date Coverage End Date MEDICARE OF [place] [address] [place] [id number] [phone] [id number] PATT RENDON Self - patient is the insured MEDICAID OF [facility] [address] [place] [address] [phone] [id number] PATT RENDON Self - patient is the insured MEDICAL (GENERAL) HISTORY Medical History History ICD Code hypertension 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
--- OUTSIDE RECORDS SUMMARY | 2024-08-09 08:46 | XMS_ITS | Encounter Summary ---
Author Organization [facility] Address [address] [facility] 7t [place] [address] Care Team Providers Care Knot Picker Cloth Name Role Phone Bharati Soriano MD Primary Care Provider +1- [phone] Vasyl Boles MD Unavailable [phone] Reason for Visit * Reason Onset Date Comments Med Refill 05/03/2024 Encounter Details Date Type Department Care Team (Late st Contact Info) Description 05/03/2024 Telephone [facility] MEDICINE 230 [place] [address] Bharati Soriano MD 230 [place], [place] [phone] Med Refill Social History Tobacco Use Types [...] 5-325 MG tablet To be sent to: [facility]/pharmacy #[address] [place] [address] documented in this encounter Plan of Treatment Upcoming Encounters Date Type Department Care Team (Late st Contact Info) Description 09/07/2024 1:00 PM EDT Office Visit [facility] ADULT DENTAL [address] [place] [address] Denzel, Elo [address] [place] [address] 09/19/2024 11:00 AM EDT Office Visit [facility] MEDICINE 230 [place] [address] documented as of this encounter Visit Diagnoses Not on filedocumented in this encounter Additional Health Concerns Assessment Noted Time PHQ-9 Depression Total Score: 1 01/14/20 24 10:00 AM EDT documented as of this encounter Care Teams Knot Picker Cloth Relationship Specialty Start Date End Date Bharati Soriano MD [address] [place] [address] PCP - General Family Medicine 06/14/18 Vasyl Boles MD [address] [place] [phone] Gastroenterology 06/20/24 documented as of this encounter
--- OUTSIDE RECORDS SUMMARY | 2024-08-09 08:46 | XMS_ITS | Encounter Summary ---
Author Organization [employer] Address [address] [facility] 7t [place] [address] Care Team Providers Care Object Oriented Developer Name Role Phone Bharati Soriano MD Primary Care Provider +1- [phone] Vasyl Boles MD Unavailable [phone] Encounter Details Date Type Department Care Team (Late st Contact Info) Description 08/02/2024 Orders Only [facility] MEDICINE 230 [place], [place] [phone] Bharati Soriano MD 230 [place], [place] [phone] Primary hypertension; Chronic renal impairment, stage 2 [...] [facility] ADULT DENTAL 230 [place] [address] Denzel, Elo 230 [place] [address] 09/19/2024 11:00 AM EDT Office Visit [facility] MEDICINE 230 [place] [address] documented as of this encounter Visit Diagnoses Diagnosis Primary hypertension Unspecified essential hypertension Chronic renal impairment, stage 2 (mild) documented in this encounter Additional Health Concerns Assessment Noted Time PHQ-9 Depression Total Score: 1 01/14/20 24 10:00 AM EDT documented as of this encounter Care Teams Object Oriented Developer Relationship Specialty Start Date End Date Bharati Soriano MD 230 [place] [address] PCP - General Family Medicine 06/14/18 Vasyl Boles MD [address] [place] [address] [place] [phone] Gastroenterology 06/20/24 documented as of this encounter
--- OUTSIDE RECORDS SUMMARY | 2024-08-09 08:46 | XMS_ITS | Encounter Summary ---
Author Organization [employer] Address 75 [facility] 7t [place] [address] Care Team Providers Care Sleep Technologist Name Role Phone Bharati Soriano MD Primary Care Provider [phone]- [phone] Vasyl Boles MD Unavailable [phone] Reason for Visit * Reason Onset Date Comments Call Back Request 10/25/2023 Encounter Details Date Type Department Care Team (Late st Contact Info) Description 10/25/2023 Telephone [facility] MEDICINE 230 [place], [place] [phone] Bharati Soriano MD 230 [place], [place] [phone] Call Back Request Social History Tobacco Use [...] of every month. Please contact pt at [phone] documented in this encounter Plan of Treatment Upcoming Encounters Date Type Department Care Team (Late st Contact Info) Description 09/07/2024 1:00 PM EDT Office Visit [facility] ADULT DENTAL [address] [place] [address] Denzel, Elo [address] [place] [address] 09/19/2024 11:00 AM EDT Office Visit [facility] MEDICINE [address] [place] [address] documented as of this encounter Visit Diagnoses Not on filedocumented in this encounter Additional Health Concerns Assessment Noted Time PHQ-9 Depression Total Score: 0 10/16/19 23 2:27 PM EDT documented as of this encounter Care Teams Sleep Technologist Relationship Specialty Start Date End Date Bharati Soriano MD [address] [place] [address] PCP - General Family Medicine 06/14/18 Vasyl Boles MD [address] [place] [phone] Gastroenterology 06/20/24 documented as of this encounter
--- OUTSIDE RECORDS SUMMARY | 2024-08-09 08:46 | XMS_ITS | Encounter Summary ---
Author Organization [facility] Address [address] [place] [address] 7t [place] [address] Care Team Providers Care Dining Car Steward Name Role Phone Bharati Soriano MD Primary Care Provider +1- [phone] Vasyl Boles MD Unavailable [phone] Reason for Visit * Reason Comments Med Refill Encounter Details Date Type Department Care Team (Late st Contact Info) Description 11/17/2022 Refill [facility] MEDICINE [address] [place] [address] Bharati Soriano MD [address] [place] [address] Wheeze Social History Tobacco Use Types Packs/Day [...] Description 09/07/2024 1:00 PM EDT Office Visit [facility] ADULT DENTAL [address] [place] [address] Al Mahoneyaris [address] [place] [address] 09/19/2024 11:00 AM EDT Office Visit [facility] MEDICINE [address] [place] [address] documented as of this encounter Visit Diagnoses Diagnosis Wheeze Wheezing documented in this encounter Additional Health Concerns Assessment Noted Time PHQ-9 Depression Total Score: 0 10/16/19 23 2:27 PM EDT documented as of this encounter Care Teams Dining Car Steward Relationship Specialty Start Date End Date Bharati Soriano MD [address] [place] [address] PCP - General Family Medicine 06/14/18 Vasyl Boles MD [address] [place] [address] [place] [phone] Gastroenterology 06/20/24 documented as of this encounter
--- OUTSIDE RECORDS SUMMARY | 2024-08-09 08:46 | XMS_ITS ---
Author Organization [facility] Address [address] [place] [address] Care Team Providers Care Switch Crew Supervisor Name Role Phone Bharati Soriano MD Primary Care Provider Becca vailable Ramana Bates, Vasyl Unavailable [phone] REASON FOR VISIT script for diapers Encounters Encounter Location Date Provider Diagnosis [facility] [address] [place] [address] 09/20/2023 Vasyl Boles Jr PLAN OF TREATMENT No Information
--- OUTSIDE RECORDS SUMMARY | 2024-08-09 08:46 | XMS_ITS | Encounter Summary ---
Author Organization [employer] Address 75 [facility] 7t [place] [address] Care Team Providers Care Turbine Technician Name Role Phone Bharati Soriano MD Primary Care Provider [phone]- [phone] Vasyl Boles MD Unavailable [phone] Encounter Details Date Type Department Care Team (Late st Contact Info) Description 09/29/2023 Abstract [facility] MEDICINE 230 [place], [place] [phone] Bharati Soriano MD 230 [place], [place] [phone] Social History Tobacco Use Types Packs/Day Years [...] t he electric, gas, oil or water [employer] threatened to shut off services in your [...] Description 09/07/2024 1:00 PM EDT Office Visit [facility] ADULT DENTAL [address] [place] [address] Denzel, Elo [address] [place] [address] 09/19/2024 11:00 AM EDT Office Visit [facility] MEDICINE [address] [place] [address] documented as of this encounter Procedures Procedure Name Priority Date/Time Associated Diagnosis Comments MAMMOGRAPHY Routine 09/29/2023 11:17 AM EDT documented in this encounter Results * (ABNORMAL) Mammography (09/29/2023 11:17 AM EDT) Mammogram BIRADS 1 Normal, Abnormal, BIRADS 1 , BIRADS 2 Anatomical Region Laterality Modality Other Historical Provider HEALTH MAINTENANCE Final Result documented in this encounter Visit Diagnoses Not on filedocumented in this encounter Additional Health Concerns Assessment Noted Time PHQ-9 Depression Total Score: 0 10/16/19 23 2:27 PM EDT documented as of this encounter Care Teams Turbine Technician Relationship Specialty Start Date End Date Bharati Soriano MD [address] [place] [address] PCP - General Family Medicine 06/14/18 Vasyl Boles MD [address] [place] [address] [address] [place] [phone] Gastroenterology 06/20/24 documented as of this encounter
--- OUTSIDE RECORDS SUMMARY | 2024-08-09 08:46 | XMS_ITS | Encounter Summary ---
Author Organization [employer] Address 75 [facility] 7t [place] [address] Care Team Providers Care Snowboard Instructor Name Role Phone Bharati Soriano MD Primary Care Provider [phone]- [phone] Vasyl Boles MD Unavailable [phone] Reason for Visit * Reason Comments Med Refill Encounter Details Date Type Department Care Team (Late st Contact Info) Description 07/30/2024 Refill [facility] MEDICINE [address] [place] [address] Bharati Soriano MD 230 [place] [address] Gastroesophageal reflux disease without esophagitis Social History Tobacco Use Types Packs/Day Years [...] [facility] ADULT DENTAL 230 [place] [address] Denzel, Elo 230 [place] [address] 09/19/2024 11:00 AM EDT Office Visit [facility] MEDICINE 230 [place] [address] documented as of this encounter Visit Diagnoses Diagnosis Gastroesophageal reflux disease without esophagitis Esophageal reflux documented in this encounter Additional Health Concerns Assessment Noted Time PHQ-9 Depression Total Score: 1 01/14/20 24 10:00 AM EDT documented as of this encounter Care Teams Snowboard Instructor Relationship Specialty Start Date End Date Bharati Soriano MD 230 [place] [address] PCP - General Family Medicine 06/14/18 Vasyl Boles MD [address] [place] [address] [place] [phone] Gastroenterology 06/20/24 documented as of this encounter
--- OUTSIDE RECORDS SUMMARY | 2024-08-09 08:46 | XMS_ITS | Encounter Summary ---
Author Organization [facility] Address [address] [place] [address] [place], [place] [address] Care Team Providers Care Integrated Circuits Inspector Name Role Phone Bharati Soriano MD Primary Care Provider [phone]- [phone] Vasyl Boles MD Unavailable [phone] Reason for Referral * Consultation (Routine) - Closed Specialty Diagnoses / Procedures Referred By Contac t Referred To Contact Physical Therapy Diagnoses Chronic low back pain, unspecified back pain laterality, unspecified whether sciatica present Bharati Soriano MD 230 [place] [address] Phone: tel: fax: [facility] / , [address] Phone: tel: fax: Referral ID Status Reason Start Date Expiration Date V isits Requested Visits Authorized [id number] Closed Specialty Services Required 10/15/2023 10/14/2024 1 1 Encounter Details Date Type Department Care Team (Late st Contact Info) Description 10/15/2023 Orders Only [facility] MEDICINE [address] [place] [address] Bharati Soriano MD 230 [place], [place] [phone] Chronic low back pain, unspecified back pain [...] 1:00 PM EDT Office Visit [facility] ADULT DENTAL 230 [place] [address] Denzel, Elo 230 [place] [address] 09/19/2024 11:00 AM EDT Office Visit [facility] MEDICINE 230 [place] [address] Scheduled Referrals Name Type Priority Associated Diagnoses Orde r Schedule Referral to Physical Therapy Outpatient Referral Routine Chronic low back pain, unspecified back pain laterality, unspecified whether sciatica present Expected: 10/15/2023 (Approximate), Expires: 10/14/2024 documented as of this encounter Visit Diagnoses Diagnosis Chronic low back pain, unspecified back pain laterality, unspecified whether sciatica present- Primary documented in this encounter Additional Health Concerns Assessment Noted Time PHQ-9 Depression Total Score: 0 10/16/19 23 2:27 PM EDT documented as of this encounter Care Teams Integrated Circuits Inspector Relationship Specialty Start Date End Date Bharati Soriano MD [address] [place] [address] PCP - General Family Medicine 06/14/18 Vasyl Boles MD [address] [place] [phone] Gastroenterology 06/20/24 documented as of this encounter
--- OUTSIDE RECORDS SUMMARY | 2024-08-09 08:46 | XMS_ITS | Encounter Summary ---
Author Organization [employer] Address [address] [place] [address] 7t [place] [address] Care Team Providers Care Pacu Rn Name Role Phone Bharati Soriano MD Primary Care Provider [phone]- [phone] Vasyl Boles MD Unavailable [phone] Reason for Visit * Reason Onset Date Comments Other 11/03/2022 Encounter Details Date Type Department Care Team (Late st Contact Info) Description 11/03/2022 Telephone [facility] MEDICINE 230 [place], [place] [phone] Bharati Soriano MD [address] [place], [place] [phone] Other Social History Tobacco Use Types Packs/Day [...] Miscellaneous Notes * Telephone Encounter - Mary Carmne Levi - 11/03/2022 12:21 PM EDT Tc from patient returning call back, lead technical writer didn't see any notes. documented in this encounter Plan of Treatment Upcoming Encounters Date Type Department Care Team (Late st Contact Info) Description 09/07/2024 1:00 PM EDT Office Visit [facility] ADULT DENTAL 230 [place] [address] Denzel, Elo [address] [place] [address] 09/19/2024 11:00 AM EDT Office Visit [facility] MEDICINE [address] [place] [address] documented as of this encounter Visit Diagnoses Not on filedocumented in this encounter Additional Health Concerns Assessment Noted Time PHQ-9 Depression Total Score: 0 10/16/19 23 2:27 PM EDT documented as of this encounter Care Teams Pacu Rn Relationship Specialty Start Date End Date Bharati Soriano MD [address] [place] [address] PCP - General Family Medicine 06/14/18 Vasyl Boles MD [address] [place] [address] [place] [phone] Gastroenterology 06/20/24 documented as of this encounter
--- OUTSIDE RECORDS SUMMARY | 2024-08-09 08:46 | XMS_ITS | Encounter Summary ---
Author Organization [employer] Address 75 [facility] 7t [place] [address] Care Team Providers Care Merchandising Specialist Name Role Phone Bharati Soriano MD Primary Care Provider [phone]- [phone] Vasyl Boles MD Unavailable [phone] Reason for Visit * Reason Onset Date Comments Med Refill 03/31/2024 Encounter Details Date Type Department Care Team (Late st Contact Info) Description 03/31/2024 Telephone [facility] MEDICINE 230 [place] [address] Bharati Soriano MD 230 [place], [place] [phone] Med Refill Social History Tobacco Use Types [...] 5-325 MG tablet To be sent to: [facility]/pharmacy [address] [place] [address] documented in this encounter Plan of Treatment Upcoming Encounters Date Type Department Care Team (Late st Contact Info) Description 09/07/2024 1:00 PM EDT Office Visit [facility] ADULT DENTAL [address] [place] [address] Denzel, Elo [address] [place] [address] 09/19/2024 11:00 AM EDT Office Visit [facility] MEDICINE [address] [place] [address] documented as of this encounter Visit Diagnoses Not on filedocumented in this encounter Additional Health Concerns Assessment Noted Time PHQ-9 Depression Total Score: 1 01/14/20 24 10:00 AM EDT documented as of this encounter Care Teams Merchandising Specialist Relationship Specialty Start Date End Date Bharati Soriano MD [address] [place] [address] PCP - General Family Medicine 06/14/18 Vasyl Boles MD [address] [place] [phone] Gastroenterology 06/20/24 documented as of this encounter
--- OUTSIDE RECORDS SUMMARY | 2024-08-09 08:46 | XMS_ITS | Encounter Summary ---
Author Organization [employer] Address 75 [facility] 7t [place] [address] Care Team Providers Care Paint Spraying Machine Operator Helper Name Role Phone Bharati Soriano MD Primary Care Provider [phone]- [phone] Vasyl Boles MD Unavailable [phone] Encounter Details Date Type Department Care Team ([facility] st Contact Info) Description 01/04/2024 Orders Only [facility] MEDICINE [address] [place] [address] Hortencia Beard, JÚNIOR 230 [place] [address] Pain Social History Tobacco Use Types Packs/Day [...] [facility] 230 [place] [address] Denzel, Elo 230 [place] [address] 09/19/2024 11:00 AM EDT Office Visit [facility] MEDICINE 230 [place] [address] Scheduled Orders Name Type Priority Associated Diagnoses [...] and their analyticalperformance characteristics have been determined by[facility]. It has not been cleared or approvedby the FDA. This assay has been validated pursuant tothe CLIA regulations and is used for clinical purposes.Healthcare Providers needing Interpretation assistance,please contact us at [phone] ( )M-F, 8am to 10pm ESTTHIS TEST PERFORMED AT:[facility] [employer] [place] [phone] DIRECTOR: VAUGHN BAUTISTA MD 01/04/2024 11:2 3 AM EDT 01/04/2024 1:53 PM EDT us Mily Alfredo SALES LEDGER ADMINISTRATOR LAB URINE ORDERABLES Final Res ult [facility] [address] [place] [address] [phone] documented in this encounter Visit Diagnoses Diagnosis Pain Generalized pain documented in this encounter Additional Health Concerns Assessment Noted Time PHQ-9 Depression Total Score: 2 12/22/19 24 2:00 PM EDT documented as of this encounter Care Teams Paint Spraying Machine Operator Helper Relationship Specialty Start Date End Date Bharati Soriano MD 230 [place] [address] PCP - General Family Medicine 06/14/18 Vasyl Boles MD [address] [place] [address] [place] [phone] Gastroenterology 06/20/24 documented as of this encounter
--- OUTSIDE RECORDS SUMMARY | 2024-08-09 08:46 | XMS_ITS | Encounter Summary ---
Author Organization [employer] Address 75 [facility] 7t [place] [address] Care Team Providers Care Interlocking Installer Name Role Phone Bharati Soriano MD Primary Care Provider [phone]- [phone] Vasyl Boles MD Unavailable [phone] Reason for Visit * Reason Onset Date Comments Med Refill 02/01/2024 Encounter Details Date Type Department Care Team (Late st Contact Info) Description 02/01/[address] [facility] MEDICINE 230 [place], [place] [phone] Bharati Soriano MD 230 [place], [place] [phone] Med Refill Social History Tobacco Use Types [...] 5-325 MG tablet To be sent to: [facility]/pharmacy #[id number] [place] [address] - [address] [place] [address] documented in this encounter Plan of Treatment Upcoming Encounters Date Type Department Care Team (Late st Contact Info) Description 09/07/2024 1:00 PM EDT Office Visit [facility] ADULT DENTAL [address] [place] [address] Denzel Elo [address] [place] [address] 09/19/2024 11:00 AM EDT Office Visit [facility] MEDICINE 230 [place] [address] documented as of this encounter Visit Diagnoses Not on filedocumented in this encounter Additional Health Concerns Assessment Noted Time PHQ-9 Depression Total Score: 1 01/14/20 24 10:00 AM EDT documented as of this encounter Care Teams Interlocking Installer Relationship Specialty Start Date End Date Bharati Soriano MD 230 [place] [address] PCP - General Family Medicine 06/14/18 Vasyl Boles MD [address] [place] [address] [address] [place] [phone] Gastroenterology 06/20/24 documented as of this encounter
== END 2024-08-09 08:20 | disposition home or self-care (01) ==
LOC: HO.US 08:19
PROVIDERS: PCP Family Medicine; Visit Provider Family Medicine
DX: B18.1 Chronic viral hepatitis B without delta-agent (principal)
CPT/HCPCS: 76700

== ENCOUNTER → 2024-08-09 08:19 | Outpatient (BNV) | payer MEDICARE, MEDICAID, SELFPAY | PROVIDERS: PCP Family Medicine; Visit Provider Radiology Diagnostic Radiology | DX: Z86.19 Personal history of other infectious and parasitic diseases (principal) | CPT/HCPCS: 76700 ==

== ENCOUNTER 2024-08-22 10:43 | Outpatient (REF) | payer MEDICARE, MEDICAID, SELFPAY ==
--- NOTE | ~2024-08-22 | MM_ITS ---
EXAMINATION: DXA BONE DENSITY AXIAL HISTORY: Estrogen deficiency TECHNIQUE: [employer] Dual energy absorptiometry (DEXA) of the lumbar spine, total left hip, and femoral neck was performed. COMPARISON: Comparison is made with the prior examination dated 02/15/2018 FINDINGS: The bone mineral density of the lumbar spine is 1.116 with a T-score of -0.5, and a Z-score of 1.4. This represents a BMD change of 12.2% compared to the prior exam. This is statistically significant. The bone mineral density of the left total hip is 0.649 with a T-score of -2.8, and a Z-score of -1.2. This represents a BMD change of -2.1% compared to the prior exam. This is not statistically significant. The bone mineral density of the left femoral neck is 0.651 with a T-score of -2.8, and a Z-score of -0.9. This represents a BMD change of -4.0% compared to the prior exam. FRACTURE RISK: The FRAX index suggests a ten year probability of major osteoporotic fracture of 10.0%, and of hip fracture 3.0%. MM/XR DEXA axial skeleton IMPRESSION: Based on bone mineral density, and according to World Health Organization (WHO) criteria, the diagnosis is consistent with osteoporosis. All bone density values are in grams per centimeter squared (g/cm2). Statistically, 68% of repeat scans fall within 1 SD (+/- 0.010 g/cm2 for AP spine L1-L4) and 1 SD (+/- 0.012 g/cm2 for femur total) FRAX is a trademark of the [employer] [facility] Met[employer], a World Health Organization (WHO) Collaborating Center. Electronically signed by: Babak Mccrary MD 08/22/2024 12:53 PM EDT
--- OUTSIDE RECORDS SUMMARY | 2024-08-22 12:56 | XMS_ITS | Encounter Summary ---
Author Organization [employer] [facility] Address [address] [place] [address] 7t [place] [address] Care Team Providers Care Ethnic Studies Professor Name Role Phone Bharati Soriano MD Primary Care Provider [phone]- [phone] Vasyl Boles MD Unavailable [phone] Encounter Details Date Type Department Care Team (Late st Contact Info) Description 10/12/2022 Abstract [facility] MEDICINE [address] [place] [address] Bharati Soriano MD [address] [place] [address] Social History Tobacco Use Types Packs/Day Years [...] Description 09/07/2024 1:00 PM EDT Office Visit [facility] ADULT DENTAL [address] [place] [address] Al Mahoneyaris [address] [place] [address] 09/19/2024 11:00 AM EDT Office Visit [facility]INE [address] [place] [address] documented as of this encounter Visit Diagnoses Not on filedocumented in this encounter Care Teams Ethnic Studies Professor Relationship Specialty Start Date End Date Bharati Soriano MD 230 [place] [address] PCP - General Family Medicine 06/14/18 Vasyl Boles MD [address] [place] [address] [place] [phone] Gastroenterology 06/20/24 documented as of this encounter
--- OUTSIDE RECORDS SUMMARY | 2024-08-22 12:56 | XMS_ITS | Encounter Summary ---
Author Organization [employer] Address 75 [facility] 7t [place] [address] Care Team Providers Care Fax Machine Operator Name Role Phone Bharati Soriano MD Primary Care Provider [phone]- [phone] Vasyl Boles MD Unavailable [phone] Encounter Details Date Type Department Care Team (Late st Contact Info) Description 08/09/2024 Telephone [facility] MEDICINE 230 [place], [place] [phone] Bharati Sroiano MD 230 [place], [place] [phone] Social History Tobacco Use Types Packs/Day Years [...] encounter Miscellaneous Notes * Telephone Encounter - Yesenia Pepito - 08/09/2024 1:01 PM EST Normal ultra sound letter sent on 08/09/2024. documented in this encounter Plan of Treatment Upcoming Encounters Date Type Department Care Team (Late st Contact Info) Description 09/07/2024 1:00 PM EDT Office Visit [facility] ADULT DENTAL [address] [place] [address] Denzel, Elo [address] [place] [address] 09/19/2024 11:00 AM EDT Office Visit [facility] MED[facility] [address] [place] [address] documented as of this encounter Visit Diagnoses Not on filedocumented in this encounter Additional Health Concerns Assessment Noted Time PHQ-9 Depression Total Score: 1 01/14/20 24 10:00 AM EDT documented as of this encounter Care Teams Fax Machine Operator Relationship Specialty Start Date End Date Bharati Soriano MD [address] [place] [address] PCP - General Family Medicine 06/14/18 Vasyl Boles MD [address] [place] [address] [address] [place] [phone] Gastroenterology 06/20/24 documented as of this encounter
--- OUTSIDE RECORDS SUMMARY | 2024-08-22 12:56 | XMS_ITS | Encounter Summary ---
Author Organization [facility] [facility] Address [address] [place] [address] 7 [place] [address] Care Team Providers Care Hog Slaughterer Name Role Phone Bharati Soriano MD Primary Care Provider [phone]- [phone] Vasyl Boles MD Unavailable [phone] Encounter Details Date Type Department Care Team (Latest Contact Info) Description 03/26/2021 Abstract [facility] CONVERSIONS Dental, Provider, DDS Social [...] [facility] ADULT DENTAL [address] [place] [address] Denzel, Elo [address] [place] [address] 09/19/2024 11:00 AM EDT Office Visit [facility] MEDICINE [address] [place] [address] documented as of this encounter Visit Diagnoses Not on filedocumented in this encounter Care Teams Hog Slaughterer Relationship Specialty Start Date End Date Bharati Soriano MD 230 [place] [address] PCP - General Family Medicine 06/14/18 Vasyl Boles MD [address] [place] [address] [place] [phone] Gastroenterology 06/20/24 documented as of this encounter
--- OUTSIDE RECORDS SUMMARY | 2024-08-22 12:56 | XMS_ITS | Encounter Summary ---
Author Organization [employer] Address 75 [facility] 7t [place] [address] Care Team Providers Care Java Xml Developer Name Role Phone Bharati Soriano MD Primary Care Provider [phone]- [phone] Vasyl Boles MD Unavailable [phone] Reason for Visit * Reason Comments Med Refill Encounter Details Date Type Department Care Team (Late st Contact Info) Description 07/04/2023 Refill [facility] MEDICINE [address] [place] [address] Bharati Soriano MD [address] [place], [place] [phone] Acquired hypothyroidism; Dyslipidemia Social History Tobacco Use [...] Description 09/07/2024 1:00 PM EDT Office Visit [facility] ADULT DENTAL [address] [place] [address] Denzel, Elo [address] [place] [address] 09/19/2024 11:00 AM EDT Office Visit [facility] MEDICINE [address] [place] [address] documented as of this encounter Visit Diagnoses Diagnosis Acquired hypothyroidism Unspecified hypothyroidism Dyslipidemia Other and unspecified hyperlipidemia documented in this encounter Additional Health Concerns Assessment Noted Time PHQ-9 Depression Total Score: 0 10/16/19 23 2:27 PM EDT documented as of this encounter Care Teams Java Xml Developer Relationship Specialty Start Date End Date Bharati Soriano MD [address] [place] [address] PCP - General Family Medicine 06/14/18 Vasyl Boles MD [address] [place] [address] [place] [phone] Gastroenterology 06/20/24 documented as of this encounter
--- OUTSIDE RECORDS SUMMARY | 2024-08-22 12:56 | XMS_ITS | Encounter Summary ---
Author Organization [employer] Address 75 [facility] 7t [place] [address] Care Team Providers Care Supervisor Cigar Making Machine Name Role Phone Bharati Soriano MD Primary Care Provider [phone]- [phone] Vasyl Boles MD Unavailable [phone] Reason for Visit * Reason Onset Date Comments Med Refill 06/01/2023 Encounter Details Date Type Department Care Team (Late st Contact Info) Description 06/01/2023 Telephone [facility] MEDICINE [address] [place] [address] Bharati Soriano MD [address] [place], [place] [phone] Med Refill Social History Tobacco Use Types [...] 1:00 PM EDT Office Visit [facility] ADULT DENTAL [address] [place] [address] Denzel, Elo [address] [place] [address] 09/19/2024 11:00 AM EDT Office Visit [facility] MEDICINE [address] [place] [address] documented as of this encounter Visit Diagnoses Not on filedocumented in this encounter Additional Health Concerns Assessment Noted Time PHQ-9 Depression Total Score: 0 10/16/19 23 2:27 PM EDT documented as of this encounter Care Teams Supervisor Cigar Making Machine Relationship Specialty Start Date End Date Bharati Soriano MD [address] [place] [address] PCP - General Family Medicine 06/14/18 Vasyl Boles MD [address] [place] [address] [place] [phone] Gastroenterology 06/20/24 documented as of this encounter
--- OUTSIDE RECORDS SUMMARY | 2024-08-22 12:56 | XMS_ITS | Encounter Summary ---
Author Organization [facility] Address [address] [place] [address] 7 [place] [address] Care Team Providers Care Legal Nurse Consultant Name Role Phone Bharati Soriano MD Primary Care Provider [phone]- [phone] Vasyl Boles MD Unavailable [phone] Encounter Details Date Type Department Care Team (Late st Contact Info) Description 08/11/2022 Abstract [facility] MEDICINE [address] [place] [id number] Bharati Soriano MD [address] [place], [place] [phone] Social History Tobacco Use Types Packs/Day Years [...] Visit [facility] ADULT DENTAL [address] [place] [address] [phone] Elo Mahoney 230 [place] [address] 09/19/2024 11:00 AM EDT Office Visit [facility] MEDICINE [address] [place] [address] documented as of this encounter Procedures Procedure Name Priority Date/Time Associated Diagnosis Comments PAP SMEAR Routine 03/14/2015 12:00 AM EDT documented in this encounter Results * Pap Smear (03/14/2015 12:00 AM EDT) Swab us Historical Provider LAB CYTOLOGY ORDERABLES F inal Result IMAGING documented in this encounter Visit Diagnoses Not on filedocumented in this encounter Care Teams Legal Nurse Consultant Relationship Specialty Start Date End Date Bharati Soriano MD [address] [place] [address] PCP - General Family Medicine 06/14/18 Vasyl Boles MD [address] [place] [address] [address] [place] [address] Gastroenterology 06/20/24 documented as of this encounter
--- OUTSIDE RECORDS SUMMARY | 2024-08-22 12:56 | XMS_ITS | Encounter Summary ---
Author Organization [employer] Address [address] [facility] 7t [place] [address] Care Team Providers Care Naphthalene Still Operator Name Role Phone Bharati Soriano MD Primary Care Provider [phone]- [phone] Vasyl Boles MD Unavailable [phone] Reason for Visit * Reason Onset Date Comments Med Refill 05/03/2023 Encounter Details Date Type Department Care Team (Late st Contact Info) Description 05/03/2023 Telephone [facility] MEDICINE [address] [place], [place] [phone] Bharati Soriano MD [address] [place], [place] [phone] Med Refill Social History Tobacco Use Types [...] Description 09/07/2024 1:00 PM EDT Office Visit [facility] ADULT DENTAL 230 [place] [address] Denzel, Elo 230 [place] [address] 09/19/2024 11:00 AM EDT Office Visit [facility] MEDICINE 230 [place] [address] documented as of this encounter Visit Diagnoses Not on filedocumented in this encounter Additional Health Concerns Assessment Noted Time PHQ-9 Depression Total Score: 0 10/16/19 23 2:27 PM EDT documented as of this encounter Care Teams Naphthalene Still Operator Relationship Specialty Start Date End Date Bharati Soriano MD [address] [place] [address] PCP - General Family Medicine 06/14/18 Vasyl Boles MD [address] [place] [address] [place] [phone] Gastroenterology 06/20/24 documented as of this encounter
--- OUTSIDE RECORDS SUMMARY | 2024-08-22 12:56 | XMS_ITS | Encounter Summary ---
Author Organization [employer] Address [address] [place] [address] 7 [place] [address] Care Team Providers Care Accounts Receivable Bookkeeper Name Role Phone Bharati Soriano MD Primary Care Provider [phone]- [phone] Vasyl Boles MD Unavailable [phone] Encounter Details Date Type Department Care Team (Late st Contact Info) Description 06/12/2022 Orders Only [facility] [address] [place], [place] [phone] Leena Verdin ANP 230 [place] [address] Social History Tobacco Use Types Packs/Day Years [...] Description 09/07/2024 1:00 PM EDT Office Visit [facility] ADULT DENTAL 230 [place], [place] [phone] Denzel, Elo 230 [place] [address] 09/19/2024 11:00 AM EDT Office Visit [facility] MED[facility]INE 230 [place] [address] documented as of this encounter Visit Diagnoses Not on filedocumented in this encounter Care Teams Accounts Receivable Bookkeeper Relationship Specialty Start Date End Date Bharati Soriano MD [address] [place] [address] PCP - General Family Medicine 06/14/18 Vasyl Boles MD [address] [place] [address] [place] [phone] Gastroenterology 06/20/24 documented as of this encounter
--- OUTSIDE RECORDS SUMMARY | 2024-08-22 12:56 | XMS_ITS | Encounter Summary ---
Author Organization [employer] Address [address] [facility] 7t [place] [address] Care Team Providers Care Proposal Development Manager Name Role Phone Bharati Soriano MD Primary Care Provider [phone]- [phone] Vasyl Boles MD Unavailable [phone] Reason for Visit * Reason Comments Med Refill Encounter Details Date Type Department Care Team (Late st Contact Info) Description 07/02/2023 Refill [facility] MEDICINE 230 [place] [address] Bharati Soriano MD 230 [place], [place] [phone] Social History Tobacco Use Types Packs/Day Years [...] PM EDT Office Visit [facility] ADULT DENTAL 230 [place] [address] Elo Mahoney 230 [place] [address] 09/19/2024 11:00 AM EDT Office Visit [facility] MEDICINE 230 [place] [address] documented as of this encounter Visit Diagnoses Not on filedocumented in this encounter Additional Health Concerns Assessment Noted Time PHQ-9 Depression Total Score: 0 10/16/19 23 2:27 PM EDT documented as of this encounter Care Teams Proposal Development Manager Relationship Specialty Start Date End Date Bharati Soriano MD [address] [place] [address] PCP - General Family Medicine 06/14/18 Vasyl Boles MD [address] [place] [address] [place] [phone] Gastroenterology 06/20/24 documented as of this encounter
--- OUTSIDE RECORDS SUMMARY | 2024-08-22 12:56 | XMS_ITS | Encounter Summary ---
Author Organization [facility] Address [address] [place] [address] 7 [place] [address] Care Team Providers Care Casting Operator Helper Name Role Phone Bharati Soriano MD Primary Care Provider [phone]- [phone] Vasyl Boles MD Unavailable [phone] Encounter Details Date Type Department Care Team (Latest Contact Info) Description 03/16/2022 Abstract [facility] CONVERSIONS Dental, Provider, DDS Social History Tobacco [...] 1:00 PM EDT Office Visit [facility] ADULT DENTAL 230 [place] [address] Denzel, Elo [address] [place] [address] 09/19/2024 11:00 AM EDT Office Visit [facility] MEDICINE [address] [place] [address] documented as of this encounter Visit Diagnoses Not on filedocumented in this encounter Care Teams Casting Operator Helper Relationship Specialty Start Date End Date Bharati Soriano MD 230 [place] [address] PCP - General Family Medicine 06/14/18 Vasyl Boles MD [address] [place] [address] [place] [phone] Gastroenterology 06/20/24 documented as of this encounter
--- OUTSIDE RECORDS SUMMARY | 2024-08-22 12:56 | XMS_ITS | Encounter Summary ---
Author Organization [employer] Address [address] [facility] 7t [place] [address] Care Team Providers Care Ground Mixer Name Role Phone Bharati Soriano MD Primary Care Provider [phone]- [phone] Vasyl Boles MD Unavailable [phone] Reason for Visit * Reason Onset Date Comments requesting a call back 09/07/2022 Encounter Details Date Type Department Care Team (Late st Contact Info) Description 09/07/2022 Telephone [facility] MEDICINE [address] [place] [address] Bharati Soriano MD 230 [place] [address] requesting a call back Social History Tobacco [...] Description 09/07/2024 1:00 PM EDT Office Visit [facility] ADULT DENTAL [address] [place] [address] Al Mahoneyaris [address] [place] [address] 09/19/2024 11:00 AM EDT Office Visit [facility] MEDICINE [address] [place] [address] documented as of this encounter Visit Diagnoses Not on filedocumented in this encounter Care Teams Ground Mixer Relationship Specialty Start Date End Date Bharati Soriano MD [address] [place] [address] PCP - General Family Medicine 06/14/18 Vasyl Boles MD [address] [place] [address] [place] [phone] Gastroenterology 06/20/24 documented as of this encounter
--- OUTSIDE RECORDS SUMMARY | 2024-08-22 12:56 | XMS_ITS | Encounter Summary ---
Author Organization [employer] Address [address] [place] [address] 7 [place] [address] Care Team Providers Care Print Shop Chief Clerk Name Role Phone Bharati Soriano MD Primary Care Provider [phone]- [phone] Vasyl Boles MD Unavailable [phone] Reason for Visit * Reason Comments Med Refill Encounter Details Date Type Department Care Team (Late st Contact Info) Description 10/05/2022 Refill [facility] MEDICINE 230 [place] [address] Bharati Soriano MD 230 [place] [address] Wheeze Social History Tobacco Use Types Packs/Day [...] Visit [facility] ADULT DENTAL [address] [place] [address] Elo Mahoney [address] [place] [address] 09/19/2024 11:00 AM EDT Office Visit [facility] MEDICINE [address] [place] [address] documented as of this encounter Visit Diagnoses Diagnosis Wheeze Wheezing documented in this encounter Care Teams Print Shop Chief Clerk Relationship Specialty Start Date End Date Bharati Soriano MD 230 [place] [address] PCP - General Family Medicine 06/14/18 Vasyl Boles MD [address] [place] [address] [place] [phone] Gastroenterology 06/20/24 documented as of this encounter
--- OUTSIDE RECORDS SUMMARY | 2024-08-22 12:56 | XMS_ITS | Encounter Summary ---
Author Organization [employer] Address [address] [facility] 7t [place] [address] Care Team Providers Care Fertilizing Machine Operator Name Role Phone Bharati Soriano MD Primary Care Provider [phone]- [phone] Vasyl Boles MD Unavailable [phone] Reason for Visit * Reason Comments Med Refill Encounter Details Date Type Department Care Team (Late st Contact Info) Description 07/16/2024 Refill [facility] MEDICINE 230 [place] [address] Bharati Soriano MD 230 [place], [place] [phone] Mild intermittent asthma, unspecified whether complicated; Acquired [...] 1:00 PM EDT Office Visit [facility] ADULT DENTAL 230 [place] [address] Denzel, Elo 230 [place] [address] 09/19/2024 11:00 AM EDT Office Visit [facility] MEDICINE [address] [place] [address] documented as of this encounter Visit Diagnoses Diagnosis Mild intermittent asthma, unspecified whether complicated Acquired hypothyroidism Unspecified hypothyroidism documented in this encounter Additional Health Concerns Assessment Noted Time PHQ-9 Depression Total Score: 1 01/14/20 24 10:00 AM EDT documented as of this encounter Care Teams Fertilizing Machine Operator Relationship Specialty Start Date End Date Bharati Soriano MD 230 [place] [address] PCP - General Family Medicine 06/14/18 Vasyl Boles MD [address] [place] [address] [place] [phone] Gastroenterology 06/20/24 documented as of this encounter
--- OUTSIDE RECORDS SUMMARY | 2024-08-22 12:56 | XMS_ITS | Clinical Summary ---
Author Organization [employer] Address [address] [place] [address] 7[address] [place] [address] Care Team Providers Care Aviation Maintenance Technician Name Role Phone Bharati Soriano MD Primary Care Provider [phone] Vasyl Boles MD Unavailable [phone] Allergies Active Allergy Reactions Criticality Noted Date [...] Active losartan (Cozaar) 25 MG tabletIndications :Primary hypertension,Global Product Manager mayte renal impairment, stage 2 (mild) Take 1 tablet (25 mg) by mouth 2 times daily. 90 tablet 3 025 Active oxyCODONE-acetami nophen (Percocet) 5-325 MG tabletIndications :Pain Take 1 tablet by mouth every 6 (six) hours if needed for severe pain. 84 tablet 025 Active losartan (Cozaar) 25 MG tabletIndications :Primary hypertension,Global Product Manager mayte renal impairment, stage 2 (mild) Take 1 tablet by mouth in the morning. 021 2024 Discontinued(R eorder (will not trigger notification to Pharmacy)) oxyCODONE-acetami nophen (Percocet) 5-325 MG tabletIndications :Pain Take 1 tablet by mouth every 6 (six) hours if needed for severe pain for up to 28 days. 84 tablet 025 2024 Discontinued(R eorder (will not trigger notification to Pharmacy)) losartan (Cozaar) 25 MG tabletIndications :Primary hypertension,Global Product Manager mayte renal impairment, stage 2 (mild) Take 1 tablet (25 mg) by mouth Once per day. 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 -Anticipatory guidance discussed. -Preventative care / harm reduction discussed. Assessment & Plan (05/12/2023 10:18 AM EST): -Normal growth and development. -Anticipatory guidance discussed. -Preventative care / harm reduction discussed. Other specified health status 04/24/2023 Overview (07/12/2024): -next comprehensive annual evaluation due after 07/12/25 -eye care facilitated by [facility] -dental home is [facility] -Health care proxy given and filed 12/22/23 Assessment & Plan (07/12/2024 4:10 PM EST): -next comprehensive annual evaluation due after 07/12/25 -eye care facilitated by [facility] -dental home is [facility] -Health care proxy given and filed 12/22/23 Assessment & Plan (12/22/2023 2:27 PM EDT): -next physical exam due after 05/12/2024 -eye care facilitated by [facility] -dental home is [facility] -Health care proxy given and filed [...] Sicca symptoms, positive LUISITO, positive Sm and CUSTOM BOOKBINDER and leukopenia. Followed by rheumatology. Lat note from Dr. Flores 04/06/23 reviewed. -Plaquenil 200mg BID started 04/2018 -continue regular eye exams -s/p flu vaccine 02/2020 done at [facility] -PCV 04/2019 -Referred to new ceramic engineer 07/12/24 Assessment & Plan (07/12/2024 4:10 PM EST): Diagnoses 04/2018 baed on arthralgia, Raynauds, Sicca symptoms, positive LUISITO, positive Sm and CUSTOM BOOKBINDER and leukopenia. Followed by rheumatology. Lat note from Dr. Flores 04/06/23 reviewed. -Plaquenil 200mg BID started 04/2018 -continue regular eye exams -s/p flu vaccine 02/2020 done at [facility] -PCV 04/2019 -Referred to new ceramic engineer 07/12/24 Assessment & Plan (12/22/2023 8:38 AM EDT): Diagnoses 04/2018 baed on arthralgia, Raynauds, Sicca symptoms, positive LUISITO, positive Sm and CUSTOM BOOKBINDER and leukopenia. Followed by rheumatology. Lat note from Dr. Flores 04/06/23 reviewed. -Plaquenil 200mg BID started 04/2018 -continue regular eye exams -s/p flu vaccine 02/2020 done at [facility] -PCV 04/2019 Assessment & Plan (05/12/2023 10:17 AM EST): Diagnoses 04/2018 baed on arthralgia, Raynauds, Sicca symptoms, positive LUISITO, positive Sm and CUSTOM BOOKBINDER and leukopenia. Followed by rheumatology. Lat note from Dr. Flores 04/06/23 reviewed. -Plaquenil 200mg BID started 04/2018 -continue regular eye exams -s/p flu vaccine 02/2020 done at [facility] -PCV 04/2019 Assessment & Plan (10/15/2022 2:23 PM EDT): Diagnoses 04/2018 baed on arthralgia, Raynauds, Sicca symptoms, positive LUISITO, positive Sm and CUSTOM BOOKBINDER and leukopenia. Followed by rheumatology. -Plaquenil 200mg BID started 04/2018 -continue regular eye exams -s/p flu vaccine 02/2020 done at [facility] -PCV 23 04/2019 Chronic diarrhea 05/08/2022 Osteoporosis 05/08/2022 Overview [...] opioid. Confirmatory testing sent to lab. See individual pension adviser. Assessment & Plan (07/12/2024 4:09 PM EST): [...] -UTOX and pill count as expected. See individual pension adviser for further details -Encouraged to cont with pharm and non-pharm tx modalities Chronic type B viral hepatitis 04/04/2012 Overview (08/09/2024): VL 799 IU/mL, 2.90 log on 05/23/18 LFT's normal on 07/14/18 Currently on Plaquenil for lupus VL 93 international units/mbl, 1.97 log on 04/26/24 AFP 6.3 ng/mL on 04/26/24 US 08/09/24 IMPRESSION: Unremarkable abdominal ultrasound. Assessment & Plan (07/12/2024 3:40 PM EST): [...] Depressive disorder 04/04/2012 Overview (07/12/2024): Follows with [facility]. Assessment & Plan (01/04/2024 2:33 PM EDT): [...] Encounters Date Type Department Care Team Description 08/09/2024 Telephone [facility] MEDICINE [address] [place] [address] Bharati Soriano MD 08/02/2024 Orders Only [facility] MEDICINE [address] [place] [address] Bharati Soriano MD Primary hypertension; Chronic renal impairment, stage 2 (mild) 08/01/2024 Orders Only [address] [address] Rosi Vergara MD Primary hypertension; Chronic renal impairment, stage 2 (mild) 08/01/2024 Orders Only [address] [address] Bharati Soriano MD Primary hypertension; Chronic renal impairment, stage 2 (mild) 07/30/[address] [address] Bharati Soriano MD Gastroesophageal reflux disease without esophagitis 07/26/[address] [address] Bharati Soriano MD Pain 07/24/[address] [address] Bharati Soriano MD Prior Authorization (Lidocaine 5% patch) 07/16/[address] [address] Bharati Soriano MD Mild intermittent asthma, unspecified whether complicated; Acquired hypothyroidism 07/12/2024 2:45 PM EST Office Visit [address] [address] Bharati Soriano MD Other forms of systemic [...] status 07/11/2024 11:00 AM EST Office Visit [address] [address] Mily Alfredo FNP Chronic low back pain, unspecified back pain laterality, unspecified whether sciatica present (Primary Dx); Lumbar radiculopathy; Sacroiliac joint pain; senior care (current) use of opiate analgesic 07/11/2024 Telephone [facility] MEDICINE [address] [place] [address] Isaura Goode MA chartprep 07/11/2024 Telephone [facility] MED & PEDS [address] [place] [address] Jocelyn Randall RN 07/11/2024 Travel 07/04/2024 Refill [facility] MEDICINE [address] [place] [address] Bharati Soriano MD Pain 06/30/2024 Patient Outreach [facility] MEDICINE [address] [place] [address] Bharati Soriano MD Pre-visit Planning (SDOH Screening negative and Tobacco screening negative) 06/15/2024 Refill [facility] MEDICINE [address] [place] [address] Rosi Vergara MD Chronic diarrhea 06/15/2024 Refill [facility] MEDICINE [address] [place] [address] Leena Verdin ANP Mild intermittent asthma, unspecified whether complicated; Chronic diarrhea 06/01/2024 Travel 06/01/2024 Refill [facility] MEDICINE [address] [place] [address] Bharati Soriano MD Pain 05/30/2024 Telephone [facility] MEDICINE [address] [place] [address] Bharati Soriano MD 05/25/2024 Refill [facility] MEDICINE [address] [place] [address] Bharati Soriano MD Dyslipidemia; Other osteoporosis without current pathological fracture from Last 3 Months Immunizations Name Administration [...] Description 09/07/2024 1:00 PM EDT Office Visit [facility] ADULT DENTAL [address] [place] [address] Denzel, Elo [address] [place] [address] 09/19/2024 11:00 AM EDT Office Visit [facility] MEDICINE [address] [place] [address] Health Maintenance Due Date Last Done Comments [...] Procedure Name Priority Date/Time Associated Diagnosis Comments US ABDOMEN COMPLETE Routine 08/09/2024 8 :38 AM EST Chronic type B viral hepatitis (CMS/HCC) POCT MADHU-14 URINE DRUG SCREEN Routine 07/11/2024 [...] Recently Relevant to Health Maintenance Results * US Abdomen Complete (08/09/2024 8:38 AM EST) Anatomical Region Laterality Modality Abdomen Ultrasound 08/09/2024 8:38 AM EST Narrative 08/09/2024 10:07 AM EST ? [facility] ?[address] ?[place] [address] ? Ultrasound Report ? Signed ? Patient: Fink Fink,Sara ?MR#: ?? [id number] ? : 1955 ?Acct:[id number] ? Age/Sex: 68 / F ?ADM Date: 08/09/24 ? Loc: HO.US ? Attending Dr: Bharati Soriano MD ? Ordering Physician: Bharati Soriano MD ?? Date of Service: 08/09/24 ?? Procedure(s): US abdomen complete ?? Accession Number(s): [id number] ? cc: Bharati Soriano MD ? EXAMINATION: ??US ABDOMEN ? HISTORY: hx chronic hep B ? TECHNIQUE: Real-time grayscale ultrasound imaging of the abdomen was ?? performed and images were reviewed. ? COMPARISON: Correlation is made with a CT of the abdomen dated ?? 05/13/2019. ? FINDINGS: ?? Liver: ??The right lobe of the liver measures 12.4 cm in size. The left ?? lobe of the liver measures 8.9 cm in size. The liver demonstrates ?? normal homogeneous echotexture. ??No focal mass or intrahepatic biliary ?? ductal dilatation is identified. ??There is normal hepatopedal flow in ?? the portal vein. ? Gallbladder and biliary tree: The gallbladder is unremarkable, without ?? evidence of calculi, wall thickening, or pericholecystic fluid. ??There ?? is no sonographic Aguilar sign. ??The common bile duct is normal in ?? caliber measuring 3 mm. ? Kidneys: ??The right kidney measures 9.0 cm in length. The left kidney ?? measures 9.6 cm in length. ??The kidneys are unremarkable, without ?? evidence of masses, hydronephrosis, or calculi. ? Pancreas: The pancreatic head, neck, and body are unremarkable. The ?? pancreatic tail is obscured by bowel gas. ? Spleen: The spleen is normal in size and contour, measuring 7.7 cm in ?? length. ? Abdominal aorta and inferior vena cava: The visualized portions of the ?? abdominal aorta and inferior vena cava are normal in caliber. ? There is no free fluid in the abdomen. ? US/US abdomen complete ?? IMPRESSION: ? Unremarkable abdominal ultrasound. ? Electronically signed by: ??Babak Mccrary MD ??08/09/2024 10:04 AM EST ?? RP ? Dictated By: ?Babak Mccrary MD ? Signed By: ?<Electronically signed by Babak Mccrary MD in OV> ?08/09/24 1004 ? DD/ 0838 ? TD/TT: 08/09/24 0848 ? Regasification Plant Operator: ? Procedure Note Donotuseinterpreter, Image - 08/09/[address] [address] Ultrasound Report Signed Patient: Davis LancasteradMR#: [id number] : 4Acct:[id number] Age/Sex: 68 / FADM Date: 08/09/24 Loc: HO.US Attending Dr: Bharati Soriano MD Ordering Physician: Bharati Soriano MD Date of Service: 08/09/24 Procedure(s): US abdomen complete Accession Number(s): [id number] cc: Bharati Soriano MD EXAMINATION: US ABDOMEN HISTORY: hx chronic hep B TECHNIQUE: Real-time grayscale ultrasound imaging of the abdomen was performed and images were reviewed. COMPARISON: Correlation is made with a CT of the abdomen dated 05/13/2019. FINDINGS: Liver: The right lobe of the liver measures 12.4 cm in size. The left lobe of the liver measures 8.9 cm in size. The liver demonstrates normal homogeneous echotexture. No focal mass or intrahepatic biliary ductal dilatation is identified. There is normal hepatopedal flow in the portal vein. Gallbladder and biliary tree: The gallbladder is unremarkable, without evidence of calculi, wall thickening, or pericholecystic fluid. There is no sonographic Aguilar sign. The common bile duct is normal in caliber measuring 3 mm. Kidneys: The right kidney measures 9.0 cm in length. The left kidney measures 9.6 cm in length. The kidneys are unremarkable, without evidence of masses, hydronephrosis, or calculi. Pancreas: The pancreatic head, neck, and body are unremarkable. The pancreatic tail is obscured by bowel gas. Spleen: The spleen is normal in size and contour, measuring 7.7 cm in length. Abdominal aorta and inferior vena cava: The visualized portions of the abdominal aorta and inferior vena cava are normal in caliber. There is no free fluid in the abdomen. US/US abdomen complete IMPRESSION: Unremarkable abdominal ultrasound. Electronically signed by: Babak Mccrary MD 08/09/2024 10:04 AM EST RP Dictated By: Babak Mccrary MD Signed By: <Electronically signed by Babak Mccrary MD in OV> 08/09/24 1004 DD/ 0838 TD/TT: 08/09/24 0848 Regasification Plant Operator: Bharati Soriano MD IM US PROCEDURES Final Re sult * (ABNORMAL) POCT MADHU-14 Urine Drug Screen (07/11/2024 1:39 PM EST) Benzodiazepines Screen, Urine Positive Buprenophine Screen, Urine Positive Oxycodone Screen, Urine Positive Urine Urine specimen obtained by clean catch procedure / Unknown 07/11/2024 1:39 PM EST Mily Alfredo TECHNICAL APPLICATIONS SCIENTIST POINT OF CARE TEST ENTER/EDIT ORDERABLES Final Result * Drug Monitoring, Benzodiazepines, Quantitative, Urine (07/11/2024 11:30 AM EST) Nordiazepam, GCMS Urine NEGATIVE [facility] Oxazepam, GCMS Urine NEGATIVE [facility] Lorazepam GCMS Urine NEGATIVE [facility] Alprazolam, GCMS Urine NEGATIVE [facility] Alphahydroxytriazolam, GCMS Ur NEGATIVE [facility] Temazepam, GCMS Urine NEGATIVE [facility] Alphahydroxymidazolam,GC MS Ur NEGATIVE [facility] Aminoclonazepam, GCMS Urine NEGATIVE [facility] Flurazepam Metabolite,GCMS Ur NEGATIVE [facility] Benzodiazepines Comments SEE NOTE [facility] Comment:This drug testing is for medical treatment only.Analysis was performed as non-forensic testing andthese results should be used only by healthcareproviders to render diagnosis or treatment, or tomonitor progress of medical conditions.LDT Notes:Confirmation tests were developed and their analyticalperformance characteristics have been determined by[employer]. It has not been cleared or approvedby the FDA. This assay has been validated pursuant e994 CLIA regulations and is used for clinical purposes.Healthcare Providers needing Interpretation assistance,please contact us at [phone] ( )M-F, 8am to 10pm ESTTHIS TEST PERFORMED AT:[facility] [address] [phone] DIRECTOR: VAUGHN BAUTISTA MD Urine (Urine, Random) 07/11/2024 11:30 AM EST 07/11/2024 4:08 PM EST us Mily Alfredo [facility] URINE ORDERABLES Final Res ult [facility] [address] [place] [phone] * Drug Toxicology Monitoring Buprenorphine, with Confirmation, Urine (07/11/2024 11:30 AM EST) Buprenorphine NEGATIVE [facility] Comment:REFERENCE RANGE: <2 ng/mL Norbuprenorphine NEGATIVE [facility] Comment:REFERENCE RANGE: <2 ng/mL Naloxone, Urine NEGATIVE [facility] Comment:REFERENCE RANGE: <2 ng/mL Buprenorphine Comments SEE NOTE [facility] Comment:This drug testing is for medical treatment only.Analysis was performed as non-forensic testing andthese results should be used only by healthcareproviders to render diagnosis or treatment, or tomonitor progress of medical conditions.LDT Notes:Confirmation tests were developed and their analyticalperformance characteristics have been determined by[employer]. It has not been cleared or approvedby the FDA. This assay has been validated pursuant e994 CLIA regulations and is used for clinical purposes.Healthcare Providers needing Interpretation assistance,please contact us at [phone] ( )M-F, 8am to 10pm ESTTHIS TEST PERFORMED AT:[facility] [address] [phone] DIRECTOR: VAUGHN BAUTISTA MD Urine (Urine, Random) 07/11/2024 11:30 AM EST 07/11/2024 4:08 PM EST us Mily [facility] LAB URINE ORDERABLES Final Res ult Performing Organization Address City/[facility]/ZIP Co de Phone Number [facility] [address] [place] [phone] * Lipid Panel, Standard (04/26/2024 10:02 AM EST) Triglycerides 118 <150 mg/dL [facility] Comment:Desirable Triglyceri de: less than 150 mg/dLBorderline High Triglyceride 150-199 mg/dLHigh Triglyceride: 200-499 mg/dLVery High Triglyceride: greater than or equal to 5OO mg/dL Cholesterol 173 <200 mg/dL [facility] Comment:Desirable Cholestero l: less than 200 mg/dLBorderline High Cholesterol: 200-239 mg/dLHigh Cholesterol: greater than 239 mg/dL LDL Cholesterol Calculated 84 <100 mg/dL [facility] Comment:Desirable LDL: less than 100 mg/dLNear Optimal/Above Optimal LDL: 110- 129 mg/dLBorderline High LDL: 130-159 mg/dLHigh LDL: 160-189 mg/dLVery High LDL: greater than or equal to 190 mg/dL HDL Cholesterol 66 >40 mg/dL [facility] Comment:Desirable HDL: great er than 40 mg/dL Note: This HDL assay may give artificially low results in patients with liver disease. Blood Venous blood specimen / Unknown 04/26/2024 10:02 AM EST 04/26/2024 10:02 AM EST us Bharati Soriano MD LAB BLOOD ORDERABLES Final Result Performing Organization Address City/[facility]/ZIP Co de Phone Number [facility] [address] [place] [phone] * (ABNORMAL) Mammography (09/29/2023 11:17 AM [...] Most Recently Relevant to Health Maintenance Insurance [facility] STANDARD [facility]IC[facility] * Guarantor: Sara Lancaster Account Type Relation to Patient Date of Phone Billing Address Personal/Family Self [address] [place] [address] Advance Directives Documents on File Type Date Recorded Patient Computing Services Director Expl anation Advance Directives and Living Will 12/22/2023 Health Care Proxy 12/22/23 Care Teams Aviation Maintenance Technician Relationship Specialty Start Date End Date Christie, MD Bharati [address] [place] [address] PCP - General Family Medicine 06/14/18 Vasyl Boles MD [address] [place] [address] [place] [phone] Gastroenterology 06/20/24
--- OUTSIDE RECORDS SUMMARY | 2024-08-22 12:56 | XMS_ITS | Encounter Summary ---
Author Organization [employer] Address [address] [place] [address] [address] [place] [address] Care Team Providers Care Community Engagement Manager Name Role Phone Bharati Soriano MD Primary Care Provider [phone] Vasyl Bolse MD Unavailable Reason for Visit * Reason Comments Med Change Request Encounter Details Date Type Department Care Team (Late st Contact Info) Description 09/08/2022 Refill [facility] MEDICINE [address] [place] [address] Bharati Soriano MD [address] [place] [address] Social History Tobacco Use Types Packs/Day Years [...] Description 09/07/2024 1:00 PM EDT Office Visit [facility] ADULT DENTAL [address] [place] [address] Denzel, Elo [address] [place] [address] 09/19/2024 11:00 AM EDT Office Visit [facility] MEDICINE [address] [place] [address] documented as of this encounter Visit Diagnoses Not on filedocumented in this encounter Care Teams Community Engagement Manager Relationship Specialty Start Date End Date Bharati Soriano MD [address] [place] [phone] PCP - General Family Medicine 06/14/18 Vasyl Boles MD [address] [place] [address] [place] [phone] Gastroenterology 06/20/24 documented as of this encounter
--- OUTSIDE RECORDS SUMMARY | 2024-08-22 12:56 | XMS_ITS | Encounter Summary ---
Author Organization [employer] Address [address] [facility] [address] [place] [address] Care Team Providers Care Blending Machine Operator Name Role Phone Bharati Soriano MD Primary Care Provider [phone] Vasyl Boles MD Unavailable [phone] Reason for Visit * Reason Onset Date Comments Medication Question 06/12/2022 Encounter Details Date Type Department Care Team ([facility] st Contact Info) Description 06/12/2022 Telephone [facility] MEDICINE [address] [place], [place] [phone] Bharati Soriaon MD [address] [place], [place] [phone] Medication Question Social History Tobacco Use Types [...] sent on the to a place in [place] . Ptstates [facility] years [facility] [facility] . Pt would like to know if she will be able to get meds before the long weekend ? documented in this encounter Plan of Treatment Upcoming Encounters Date Type Department Care Team (Late st Contact Info) Description 09/07/2024 1:00 PM EDT Office Visit [facility] ADULT DENTAL [address] [place] [address] Elo Mahoney [address] [place] [address] 09/19/2024 11:00 AM EDT Office Visit [facility] MEDICINE [address] [place] [address] documented as of this encounter Visit Diagnoses Diagnosis Pain Generalized pain documented in this encounter Care Teams Blending Machine Operator Relationship Specialty Start Date End Date Bharati Soriano MD [address] [place] [address] PCP - General Family Medicine 06/14/18 Vasyl Boles MD [address] [place] [address] [place] [phone] Gastroenterology 06/20/24 documented as of this encounter
--- OUTSIDE RECORDS SUMMARY | 2024-08-22 12:56 | XMS_ITS | Encounter Summary ---
Author Organization [employer] [facility] Address [address] [place] [address] 7 [place] [address] Care Team Providers Care Makeup Sales Advisor Name Role Phone Bharati Soriano MD Primary Care Provider +1- [phone] Vasyl Boles MD Unavailable [phone] Reason for Referral * Medications - Closed Specialty Diagnoses / Procedures Referred By Contac t Referred To Contact Diagnoses Chronic low back pain, unspecified back pain laterality, unspecified whether sciatica present Bharati Soriano MD [address] [place] [address] Phone: tel: fax: Referral ID Status Reason Start Date Expiration Date Visits Re quested Visits Authorized [id number] Closed 1 1 * Imaging (Routine) - Authorized Specialty Diagnoses / Procedures Referred By Contac t Referred To Contact Radiology Diagnoses Osteoporosis, unspecified osteoporosis type, unspecified pathological fracture presence Procedures BD DEXA Axial Bharati Soriano MD [address] [place] [address] Phone: tel: fax: [facility] [address] [place] [address] Phone: tel: fax: Referral ID Status Reason Start Date Expiration Date V isits Requested Visits Authorized [id number] Authorized 07/12/2024 07/12/2025 1 1 * Imaging (Routine) - Closed Specialty Diagnoses / Procedures Referred By Enrrique tineo Referred To Contact Radiology Diagnoses Chronic type B viral hepatitis (CMS/HCC) Procedures US Abdomen Complete Bharati Soriano MD [address] [place] [address] Phone: tel: fax: [address] Phone: tel: fax: Referral ID Status Reason Start Date Expiration Date Visits Re quested Visits Authorized [id number] Closed 07/12/2024 07/12/2025 1 1 * Consultation (Routine) - Authorized Specialty Diagnoses / Procedures Referred By Enrrique tineo Referred To Contact Rheumatology Diagnoses Other forms of systemic lupus erythematosus, unspecified organ involvement status (CMS/HCC) Bharati Soriano MD [address] [place] [address] Phone: tel: fax: [facility] [address] [place] [address] Phone: tel: fax: Referral ID Status Reason Start Date Expiration Date Visits Requested Visits Authorized [id number] Authorized Specialty Services Required 07/12/2024 07/12/2025 1 1 Reason for Visit * Reason Comments Annual Exam Pt stated that she i s having incontinence #2 currently and pt is feeling a little embarrassed Encounter Details Date Type Department Care Team (Late st Contact Info) Description 07/12/2024 2:45 PM EST Office Visit [facility] MEDICINE [address] [place] [address] Bharati Soriano MD [address] [place] [address] Other forms of systemic lupus erythematosus, unspecified [...] Needs a referral for rheumatology because her onsite case manager left the area. 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 Followed by rheumatology. Lat note from Dr. Flores 04/06/23 reviewed. 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 Followed by rheumatology. Lat note from Dr. Flores 04/06/23 reviewed. -Plaquenil 200mg BID started 04/2018 -continue regular eye exams -s/p flu vaccine 02/2020 done at [facility] -[facility] 23 04/2019 -Referred to new onsite case manager 07/12/24 Relevant Orders Referral to Rheumatology Chronic [...] due after 07/12/25 -eye care facilitated by [facility] -dental home is [facility] -Health care proxy given and filed [...] due after 07/12/25 -eye care facilitated by [facility] -dental home is [facility] -Health care proxy given and filed 12/22/23 * Assessment & Plan Note - Nigel Jensen - 07/12/2024 4:10 PM ESTAssociated Problem(s): Lupus (systemic lupus erythematosus) (CMS/HCC) Diagnoses 04/2018 baed on arthralgia, Raynauds, Sicca symptoms, positive LUISITO, 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 Followed by rheumatology. Lat note from Dr. Flores 04/06/23 reviewed. -Plaquenil 200mg BID started 04/2018 -continue regular eye exams -s/p flu vaccine 02/2020 done at [facility] -[facility] 23 04/2019 -Referred to new onsite case manager 07/12/24 * Assessment & Plan Note - [...] Description 09/07/2024 1:00 PM EDT Office Visit [facility] ADULT DENTAL [address] [place] [address] Denzel Elo [address] [place] [address] 09/19/2024 11:00 AM EDT Office Visit [facility] MED[facility] 230 [facility] [place] [address] Scheduled Orders Name Type Priority Associated Diagnoses Orde r Schedule BD DEXA Axial Imaging Routine Osteoporosis, unspecified [...] Expires: 07/12/2025 documented as of this encounter Procedures Procedure Name Priority Date/Time Associated Diagnosis Comments US ABDOMEN COMPLETE Routine 08/09/2024 8 :38 AM EST Chronic type B viral hepatitis (CMS/HCC) documented in this encounter Results * US Abdomen Complete (08/09/2024 8:38 AM EST) Anatomical Region Laterality Modality Abdomen Ultrasound 08/09/2024 8:38 AM EST Narrative 08/09/2024 10:07 AM EST ? [facility] ?[address] [facility]. ?[place] [address] ? Ultrasound Report ? Signed ? Patient: Sara Lancaster ?MR#: ?? [id number] ? : 1955 ?Acct:[id number] ? Age/Sex: 68 / F ?ADM Date: 08/09/24 ? Loc: HO.US ? Attending Dr: Bharati Soriano MD ? Ordering Physician: Bharati Soriano MD ?? Date of Service: 08/09/24 ?? Procedure(s): US abdomen complete ?? Accession Number(s): [id number] ? cc: Bharati Sorinao MD ? EXAMINATION: ??US ABDOMEN ? HISTORY: [...] DD/ 0838 ? TD/TT: 08/09/24 0848 ? Asphalt Paving Machine Operator: ? Procedure Note Yulia, Image - 08/09/[address] [address] Ultrasound Report Signed Patient: Davis LancasteradMR#: [id number] : 4Acct:[id number] Age/Sex: 68 / FADM Date: 08/09/24 Loc: HO.US Attending Dr: Bharati Soriano MD Ordering Physician: Bharati Soriano MD Date of Service: 08/09/24 Procedure(s): US abdomen complete Accession Number(s): [id number] cc: Bharati Soriano MD EXAMINATION: US ABDOMEN [...] Babak Mccrary MD 08/09/2024 10:04 AM EST Dictated By: Babak Mccrary MD Signed By: <Electronically signed by Babak Mccrary MD in OV> 08/09/24 1004 DD/ 0838 TD/TT: 08/09/24 0848 Asphalt Paving Machine Operator: us Bharati Soriano MD IMG US PROCEDURES Final Re sult documented in this encounter Visit Diagnoses Diagnosis Other forms [...] documented as of this encounter Care Teams Makeup Sales Advisor Relationship Specialty Start Date End Date Bharati Soriano MD [address] [place] [address] PCP - General Family Medicine 06/14/18 Vasyl Boles MD [address] [place] [phone] Gastroenterology 06/20/24 documented as of this encounter
--- OUTSIDE RECORDS SUMMARY | 2024-08-22 12:56 | XMS_ITS | Encounter Summary ---
Author Organization [employer] Address [address] [facility] 7t [place] [address] Care Team Providers Care Instrumentation Fitter Name Role Phone Bharati Soriano MD Primary Care Provider +1- [phone] Vasyl Boles MD Unavailable [phone] Reason for Visit * Reason Comments Med Refill Encounter Details Date Type Department Care Team (Late st Contact Info) Description 06/18/2023 Refill [facility] MED[facility]INE [address] [place] [address] Bharati Soriano MD [address] [place], [place] [phone] Dyslipidemia; Acquired hypothyroidism Social History Tobacco Use [...] [facility] ADULT DENTAL [address] [place] [address] Denzel, Elo [address] [place] [address] 09/19/2024 11:00 AM EDT Office Visit [facility] MEDICINE [address] [place] [address] documented as of this encounter Visit Diagnoses Diagnosis Dyslipidemia Other and unspecified hyperlipidemia Acquired hypothyroidism Unspecified hypothyroidism documented in this encounter Additional Health Concerns Assessment Noted Time PHQ-9 Depression Total Score: 0 10/16/19 23 2:27 PM EDT documented as of this encounter Care Teams Instrumentation Fitter Relationship Specialty Start Date End Date Bharati Soriano MD [address] [place] [address] PCP - General Family Medicine 06/14/18 Vasyl Boles MD [address] [place] [address] [place] [phone] Gastroenterology 06/20/24 documented as of this encounter
--- OUTSIDE RECORDS SUMMARY | 2024-08-22 12:57 | XMS_ITS | Encounter Summary ---
Author Organization [employer] Address [address] [facility] 7t [place] [address] Care Team Providers Care Heating And Cooling Technician Name Role Phone Bharati Soriano MD Primary Care Provider [phone]- [phone] Vasyl Boles MD Unavailable [phone] Encounter Details Date Type Department Care Team (Late st Contact Info) Description 09/29/2023 Abstract [facility] [address] [place], [place] [phone] Bharati Soriano MD [address] [place], [place] [phone] Social History Tobacco Use Types Packs/Day Years [...] t he electric, gas, oil or water [employer] threatened to shut off services in your [...] Description 09/07/2024 1:00 PM EDT Office Visit [facility] ADULT DENTAL [address] [place] [address] Denzel, Elo [address] [place] [address] 09/19/2024 11:00 AM EDT Office Visit [facility] [address] [place] [address] documented as of this encounter Procedures Procedure [...] documented as of this encounter Care Teams Heating And Cooling Technician Relationship Specialty Start Date End Date Bharati Soriano MD [address] [place] [address] PCP - General Family Medicine 06/14/18 Vasyl Boles MD [address] [place] [address] [address] [place] [phone] Gastroenterology 06/20/24 documented as of this encounter
--- OUTSIDE RECORDS SUMMARY | 2024-08-22 12:57 | XMS_ITS | Clinical Summary ---
Author Organization [facility] Address [address] [place] [address] [place] [address] Care Team Providers Care Cement Or Concrete Finishing Supervisor Name Role Phone Bharati Soriano MD [...] Recently Relevant to Health Maintenance Care Teams Cement Or Concrete Finishing Supervisor Relationship Specialty Start Date End Date Bharati Soriano MD PCP - General 06/24/20
--- OUTSIDE RECORDS SUMMARY | 2024-08-22 12:57 | XMS_ITS | Encounter Summary ---
Author Organization [employer] Address [address] [facility] 7t [place] [address] Care Team Providers Care Pharmacist Apprentice Name Role Phone Bharati Soriano MD Primary Care Provider [phone]- [phone] Vasyl Boles MD Unavailable [phone] Encounter Details Date Type Department Care Team (Late st Contact Info) Description 08/01/2024 Orders Only [facility] MEDICINE [address] [place], [place] [phone] Bharati Soriano MD [address] [place], [place] [phone] Primary hypertension; Chronic renal impairment, stage 2 [...] 1:00 PM EDT Office Visit [facility] ADULT DENTAL [address] [place] [address] Denzel, Elo [address] [place] [address] 09/19/2024 11:00 AM EDT Office Visit [facility] MEDICINE [address] [place] [address] documented as of this encounter Visit Diagnoses Diagnosis Primary hypertension Unspecified essential hypertension Chronic renal impairment, stage 2 (mild) documented in this encounter Additional Health Concerns Assessment Noted Time PHQ-9 Depression Total Score: 1 01/14/20 24 10:00 AM EDT documented as of this encounter Care Teams Pharmacist Apprentice Relationship Specialty Start Date End Date Bharati Soriano MD [address] [place] [address] PCP - General Family Medicine 06/14/18 Vasyl Boles MD [address] [place] [address] [place] [phone] Gastroenterology 06/20/24 documented as of this encounter
--- OUTSIDE RECORDS SUMMARY | 2024-08-22 12:57 | XMS_ITS | Encounter Summary ---
Author Organization [employer] Address [address] [facility] 7t [place] [address] Care Team Providers Care Field Superintendent Name Role Phone Bharati Soriano MD Primary Care Provider [phone]- [phone] Vasyl Boles MD Unavailable [phone] Encounter Details Date Type Department Care Team ([facility] st Contact Info) Description 05/30/2024 Telephone [facility] MED[facility]INE 230 [place], [place] [phone] Bharati Soriano MD [address] [place], [place] [phone] Social History Tobacco Use Types Packs/Day Years [...] Visit [facility] ADULT DENTAL 230 [place] [address] Denzel, Elo [address] [place] [address] 09/19/2024 11:00 AM EDT Office Visit [facility] MEDICINE [address] [place] [address] documented as of this encounter Visit Diagnoses Not on filedocumented in this encounter Additional Health Concerns Assessment Noted Time PHQ-9 Depression Total Score: 1 01/14/20 24 10:00 AM EDT documented as of this encounter Care Teams Field Superintendent Relationship Specialty Start Date End Date Bharati Soriano MD [address] [place] [address] PCP - General Family Medicine 06/14/18 Vasyl Boles MD [address] [place] [address] [place] [phone] Gastroenterology 06/20/24 documented as of this encounter
--- OUTSIDE RECORDS SUMMARY | 2024-08-22 12:57 | XMS_ITS | Encounter Summary ---
Author Organization [employer] Address [address] [facility] 7 [place] [address] Care Team Providers Care Director Biomedical Engineering Name Role Phone Bharati Soriano MD Primary Care Provider [phone]- [phone] Vasyl Boles MD Unavailable [phone] Reason for Visit * Reason Onset Date Comments Prior Authorization 07/24/2024 Lidocaine 5% patch Encounter Details Date Type Department Care Team (Late st Contact Info) Description 07/24/2024 Telephone [facility] MEDICINE [address] [place], [place] [phone] Bharati Soriano MD [address] [place], [place] [phone] Prior Authorization (Lidocaine 5% patch) Social History [...] Description 09/07/2024 1:00 PM EDT Office Visit [facility] ADULT DENTAL [address] [place] [address] Elo Mahoney [address] [place] [address] 09/19/2024 11:00 AM EDT Office Visit [facility] MEDICINE [address] [place] [address] documented as of this encounter Visit Diagnoses Not on filedocumented in this encounter Additional Health Concerns Assessment Noted Time PHQ-9 Depression Total Score: 1 01/14/20 24 10:00 AM EDT documented as of this encounter Care Teams Director Biomedical Engineering Relationship Specialty Start Date End Date Bharati Soriano MD [address] [place] [address] PCP - General Family Medicine 06/14/18 Vasyl Boles MD [address] [place] [phone] Gastroenterology 06/20/24 documented as of this encounter
--- OUTSIDE RECORDS SUMMARY | 2024-08-22 12:57 | XMS_ITS | Encounter Summary ---
Author Organization [employer] Address [address] [facility] 7t [place] [address] Care Team Providers Care Distillation Operator Name Role Phone Bharati Soriano MD Primary Care Provider [phone] Vasyl Boles MD Unavailable [phone] Reason for Visit * Reason Onset Date Comments Call Back Request 10/25/2023 Encounter Details Date Type Department Care Team (Late st Contact Info) Description 10/25/2023 Telephone [facility] MEDICINE 230 [place], [place] [phone] Bharati Soriano MD 230 [place], [place] [phone] Call Back Request Social History Tobacco Use [...] of every month. Please contact pt at [phone] documented in this encounter Plan of Treatment Upcoming Encounters Date Type Department Care Team (Late st Contact Info) Description 09/07/2024 1:00 PM EDT Office Visit [facility] ADULT DENTAL [address] [place] [address] Denzel, Elo [address] [place] [address] 09/19/2024 11:00 AM EDT Office Visit [facility] MEDICINE [address] [place] [address] documented as of this encounter Visit Diagnoses Not on filedocumented in this encounter Additional Health Concerns Assessment Noted Time PHQ-9 Depression Total Score: 0 10/16/19 23 2:27 PM EDT documented as of this encounter Care Teams Distillation Operator Relationship Specialty Start Date End Date Bharati Soriano MD [address] [place] [address] PCP - General Family Medicine 06/14/18 Vasyl Boles MD [address] [place] [phone] Gastroenterology 06/20/24 documented as of this encounter
--- OUTSIDE RECORDS SUMMARY | 2024-08-22 12:57 | XMS_ITS | Encounter Summary ---
Author Organization [facility] Address [address] [place] [address] [place], [place] [address] Care Team Providers Care Packaging Supervisor Name Role Phone Bharati Soriano MD Primary Care Provider [phone]- [phone] Vasyl Boles MD Unavailable [phone] Reason for Referral * Consultation (Routine) - Closed Specialty Diagnoses / Procedures Referred By Contac t Referred To Contact Physical Therapy Diagnoses Chronic low back pain, unspecified back pain laterality, unspecified whether sciatica present Bharati Soriano MD [address] [place] [address] Phone: tel: fax: [facility] / , [address] Phone: tel: fax: Referral ID Status Reason Start Date Expiration Date V isits Requested Visits Authorized [id number] Closed Specialty Services Required 10/15/2023 10/14/2024 1 1 Encounter Details Date Type Department Care Team (Late st Contact Info) Description 10/15/2023 Orders Only [facility] MEDICINE [address] [place] [address] Bharati Soriano MD [address] [place], [place] [phone] Chronic low back pain, unspecified back pain [...] PM EDT Office Visit [facility] ADULT DENTAL [address] [place] [address] Denzel, Elo [address] [place] [address] 09/19/2024 11:00 AM EDT Office Visit [facility] MEDICINE [address] [place] [address] Scheduled Referrals Name Type Priority Associated Diagnoses [...] documented as of this encounter Care Teams Packaging Supervisor Relationship Specialty Start Date End Date Bharati Soriano MD [address] [place] [address] PCP - General Family Medicine 06/14/18 Vasyl Boles MD [address] [place] [phone] Gastroenterology 06/20/24 documented as of this encounter
--- OUTSIDE RECORDS SUMMARY | 2024-08-22 12:57 | XMS_ITS | Encounter Summary ---
Author Organization [employer] Address [address] [facility] 7t [place] [address] Care Team Providers Care Straw Hat Washer Operator Name Role Phone Bharati Soriano MD Primary Care Provider [phone]- [phone] Vasyl Boles MD Unavailable [phone] Encounter Details Date Type Department Care Team ([facility] st Contact Info) Description 01/04/2024 Orders Only [facility] MEDICINE [address] [place] [address] Hortencia Beard, JÚNIOR [address] [place] [address] Pain Social History Tobacco Use Types Packs/Day [...] Description 09/07/2024 1:00 PM EDT Office Visit [facility] ADULT DENTAL [address] [place] [address] Denzel, Elo [address] [place] [address] 09/19/2024 11:00 AM EDT Office Visit [facility] MEDICINE [address] [place] [address] Scheduled Orders Name Type Priority Associated Diagnoses [...] 11:23 AM EDT) Nordiazepam, GCMS Urine NEGATIVE [facility] Oxazepam, GCMS Urine NEGATIVE [facility] Lorazepam GCMS Urine NEGATIVE [facility] Alprazolam, GCMS Urine NEGATIVE [facility] Alphahydroxytriazolam, GCMS Ur NEGATIVE [facility] Temazepam, GCMS Urine NEGATIVE [facility] Alphahydroxymidazolam,GC MS Ur NEGATIVE [facility] Aminoclonazepam, GCMS Urine NEGATIVE [facility] Flurazepam Metabolite,GCMS Ur NEGATIVE [facility] Benzodiazepines Comments SEE NOTE [facility] Comment:This drug testing is for medical treatment only.Analysis was performed as non-forensic testing andthese results should be used only by healthcareproviders to render diagnosis or treatment, or tomonitor progress of medical conditions.LDT Notes:Confirmation tests were developed and their analyticalperformance characteristics have been determined by[facility]. It has not been cleared or approvedby the FDA. This assay has been validated pursuant tothe CLIA regulations and is used for clinical purposes.Healthcare Providers needing Interpretation assistance,please contact us at [phone] ( )M-F, 8am to 10pm ESTTHIS TEST PERFORMED AT:.[employer] [place] [phone] DIRECTOR: VAUGHN BAUTISTA MD 01/04/2024 11:2 3 AM EDT 01/04/2024 1:53 PM EDT us Mily Alfredo FINISHING MACHINE OPERATOR LAB URINE ORDERABLES Final Res ult [facility] [address] [place] [address] [phone] documented in this encounter Visit Diagnoses Diagnosis Pain Generalized pain documented in this encounter Additional Health Concerns Assessment Noted Time PHQ-9 Depression Total Score: 2 12/22/19 24 2:00 PM EDT documented as of this encounter Care Teams Straw Hat Washer Operator Relationship Specialty Start Date End Date Bharati Soriano MD 230 [place] [address] PCP - General Family Medicine 06/14/18 Vasyl Boles MD [address] [place] [address] [place] [phone] Gastroenterology 06/20/24 documented as of this encounter
--- OUTSIDE RECORDS SUMMARY | 2024-08-22 12:57 | XMS_ITS | Encounter Summary ---
Author Organization [facility] Address [address] [facility] 7t [place] [address] Care Team Providers Care Miller Head Assistant Wet Process Name Role Phone Bharati Soriano MD Primary Care Provider [phone] Vasyl Bolse MD Unavailable [phone] Reason for Visit * Reason Onset Date Comments Med Refill 02/01/2024 Encounter Details Date Type Department Care Team (Late st Contact Info) Description 02/01/2024 Telephone [facility] MEDICINE [address] [place] [address] Bharati Soriano MD 230 [place], [place] [phone] Med Refill Social History Tobacco Use Types [...] 5-325 MG tablet To be sent to: [facility]/pharmacy #[id number] [place] [id number] - [address] [place] [address] documented in this encounter Plan of Treatment Upcoming Encounters Date Type Department Care Team (Late st Contact Info) Description 09/07/2024 1:00 PM EDT Office Visit [facility] ADULT DENTAL [address] [place] [address] Denzel Elo [address] [place] [address] 09/19/2024 11:00 AM EDT Office Visit [facility] MEDICINE [address] [place] [address] documented as of this encounter Visit Diagnoses Not on filedocumented in this encounter Additional Health Concerns Assessment Noted Time PHQ-9 Depression Total Score: 1 01/14/20 24 10:00 AM EDT documented as of this encounter Care Teams Miller Head Assistant Wet Process Relationship Specialty Start Date End Date Bharati Soriano MD [address] [place] [address] PCP - General Family Medicine 06/14/18 Vasyl Boles MD [address] [place] [address] [address] [place] [phone] Gastroenterology 06/20/24 documented as of this encounter
--- OUTSIDE RECORDS SUMMARY | 2024-08-22 12:57 | XMS_ITS | Encounter Summary ---
Author Organization [employer] Address [address] [facility] 7t [place] [address] Care Team Providers Care Manuscripts Archivist Name Role Phone Bharati Soriano MD Primary Care Provider +1- [phone] Vasyl Boles MD Unavailable [phone] Encounter Details Date Type Department Care Team (Late st Contact Info) Description 08/01/2024 Orders Only [facility] [address] [place] [address] Rosi Vergara MD [address] [place], [place] [phone] Primary hypertension; Chronic renal impairment, stage 2 [...] Description 09/07/2024 1:00 PM EDT Office Visit [facility] ADULT DENTAL [address] [place] [address] Denzel, Elo [address] [place] [address] 09/19/2024 11:00 AM EDT Office Visit [facility] MED[facility] [address] [place] [address] documented as of this encounter Visit Diagnoses Diagnosis Primary hypertension Unspecified essential hypertension Chronic renal impairment, stage 2 (mild) documented in this encounter Additional Health Concerns Assessment Noted Time PHQ-9 Depression Total Score: 1 01/14/20 24 10:00 AM EDT documented as of this encounter Care Teams Manuscripts Archivist Relationship Specialty Start Date End Date Bharati Soriano MD [address] [place] [address] PCP - General Family Medicine 06/14/18 Vasyl Boles MD [address] [place] [address] [place] [phone] Gastroenterology 06/20/24 documented as of this encounter
--- OUTSIDE RECORDS SUMMARY | 2024-08-22 12:57 | XMS_ITS | Encounter Summary ---
Author Organization [employer] Address [address] [place] [address] 7t [place] [address] Care Team Providers Care Community Nutrition Educator Name Role Phone Bharati Soriano MD Primary Care Provider +1- [phone] Vasyl Boles MD Unavailable [phone] Reason for Visit * Reason Onset Date Comments Other 11/03/2022 Encounter Details Date Type Department Care Team (Late st Contact Info) Description 11/03/2022 Telephone [facility] [address] [place], [place] [phone] Bharati Soriano MD 230 [place], [place] [phone] Other Social History Tobacco Use Types Packs/Day [...] EDT Tc from patient returning call back, medical writer didn't see any notes. documented in this encounter Plan of Treatment Upcoming Encounters Date Type Department Care Team (Late st Contact Info) Description 09/07/2024 1:00 PM EDT Office Visit [facility] ADULT DENTAL [address] [place] [address] Denzel, Elo [address] [place] [address] 09/19/2024 11:00 AM EDT Office Visit [facility] MED[facility] [address] [place] [address] documented as of this encounter Visit Diagnoses Not on filedocumented in this encounter Additional Health Concerns Assessment Noted Time PHQ-9 Depression Total Score: 0 10/16/19 23 2:27 PM EDT documented as of this encounter Care Teams Community Nutrition Educator Relationship Specialty Start Date End Date Bharati Soriano MD 230 [place] [address] PCP - General Family Medicine 06/14/18 Vasyl Boles MD [address] [place] [address] [place] [phone] Gastroenterology 06/20/24 documented as of this encounter
--- OUTSIDE RECORDS SUMMARY | 2024-08-22 12:57 | XMS_ITS | Encounter Summary ---
Author Organization [employer] Address [address] [facility] 7t [place] [address] Care Team Providers Care Building Construction Estimator Name Role Phone Bharati Soriano MD Primary Care Provider [phone]- [phone] Vasyl Boles MD Unavailable [phone] Reason for Visit * Reason Onset Date Comments Med Refill 03/31/2024 Encounter Details Date Type Department Care Team (Late st Contact Info) Description 03/31/2024 Telephone [facility] MED[facility] 230 [place] [address] Bharati Soriano MD [address] [place], [place] [phone] Med Refill Social History Tobacco Use Types [...] 5-325 MG tablet To be sent to: [facility]/pharmacy #[address] [place] [address] documented in this encounter Plan of Treatment Upcoming Encounters Date Type Department Care Team (Late st Contact Info) Description 09/07/2024 1:00 PM EDT Office Visit [facility] ADULT DENTAL [address] [place] [address] Denzel, Elo 230 [place] [address] 09/19/2024 11:00 AM EDT Office Visit [facility] MED[facility]INE 230 [place] [address] documented as of this encounter Visit Diagnoses Not on filedocumented in this encounter Additional Health Concerns Assessment Noted Time PHQ-9 Depression Total Score: 1 01/14/20 24 10:00 AM EDT documented as of this encounter Care Teams Building Construction Estimator Relationship Specialty Start Date End Date Bharati Soriano MD [address] [place] [address] PCP - General Family Medicine 06/14/18 Vasyl Boles MD [address] [place] [phone] Gastroenterology 06/20/24 documented as of this encounter
--- OUTSIDE RECORDS SUMMARY | 2024-08-22 12:57 | XMS_ITS ---
Demographics Address [address] [facility] [address] [place] [address] Mobile Preferred Language en Marital Status Unknown Christianity Affiliation Unknown Race White Ethnic Group or Author Organization [facility] Address [address] [place] [address] Care Team Providers Care Administration Manager Name Role Phone Bharati Soriano MD Primary Care Provider Becca vailable Ramana Bates, Vasyl Unavailable [phone] REASON FOR VISIT script for diapers Encounters Encounter Location Date Provider Diagnosis [facility] [address] [place] [address] 09/20/2023 Vasyl Boles Jr Plan Of Treatment No Information Progress Notes * MICHAEL RENDONADDOB:[birth year] (67 yo F)Acc No.[id number]:09/20/2023 Patient:?PATT RENDON :1955???Age:67 Y???Sex:Female Address:[address] [place] [address] 4, [place], [address] * true * Date:? Generated for Print[employer] junito/Fide/eTransmitting on:?08/22/2024 12:57 PM EDT
--- OUTSIDE RECORDS SUMMARY | 2024-08-22 12:57 | XMS_ITS | Encounter Summary ---
Author Organization [employer] Address [address] [facility] [address] 7t [place] [address] Care Team Providers Care Stoneworking Sander Name Role Phone Bharati Soriano MD Primary Care Provider [phone]- [phone] Vasyl Boles MD Unavailable [phone] Encounter Details Date Type Department Care Team (Late st Contact Info) Description 09/29/2023 Orders Only [facility] 230 [place], [place] [phone] Bryon Fuller MD 230 [place], [place] [phone] Social History Tobacco Use Types Packs/Day Years [...] Office Visit [facility] ADULT DENTAL [address] [place] [address] Al Mahoneyaris 230 [place] [address] 09/19/2024 11:00 AM EDT Office Visit [facility] MED[facility] [address] [place] [address] documented as of this encounter Visit Diagnoses Not on filedocumented in this encounter Additional Health Concerns Assessment Noted Time PHQ-9 Depression Total Score: 0 10/16/19 23 2:27 PM EDT documented as of this encounter Care Teams Stoneworking Sander Relationship Specialty Start Date End Date Bharati Soriano MD [address] [place] [address] PCP - General Family Medicine 06/14/18 Vasyl Boles MD [address] [place] [phone] Gastroenterology 06/20/24 documented as of this encounter
--- OUTSIDE RECORDS SUMMARY | 2024-08-22 12:57 | XMS_ITS | Encounter Summary ---
Author Organization [employer] Address 75 [facility] 7t [place] [address] Care Team Providers Care Furniture Painter Name Role Phone Bharati Soriano MD Primary Care Provider +1- [phone] Vasyl Boles MD Unavailable [phone] Reason for Visit * Reason Onset Date Comments Med Refill 07/26/2024 Encounter Details Date Type Department Care Team (Late st Contact Info) Description 07/26/2024 Refill [facility] 230 [place], [place] [phone] Bharati Soriano MD 230 [place], [place] [phone] Pain Social History Tobacco Use Types Packs/Day [...] PCP re-sent losartan 25mg BID Rx. Called [facility] pharmacy on file, spoke with Fara [...] refill on losartan 25mg was sent to [facility] pharmacy on file with 3refills, reviewed [...] medication. Pt states don't see for years. [phone] * Telephone Encounter - Lynette Valdes LPN - 07/26/2024 3:49 PM EST Medication is prescribed by Sky Estrada. * Telephone Encounter - Elena Finney - 07/26/2024 3:47 PM EST TC from pt requesting medication refill. Medications needing refill : losartan (Cozaar) 25 MG tablet To be sent to: [facility]/pharmacy #[id number] documented in this encounter Plan of Treatment Upcoming Encounters Date Type Department Care Team (Late st Contact Info) Description 09/07/2024 1:00 PM EDT Office Visit [facility] ADULT DENTAL 230 [place] [address] Al Mahoneyaris [address] [place] [address] 09/19/2024 11:00 AM EDT Office Visit [facility] [address] [place] [address] documented as of this encounter Visit Diagnoses Diagnosis Pain Generalized pain documented in this encounter Additional Health Concerns Assessment Noted Time PHQ-9 Depression Total Score: 1 01/14/20 24 10:00 AM EDT documented as of this encounter Care Teams Furniture Painter Relationship Specialty Start Date End Date Bharati Soriano MD 230 [place] [address] PCP - General Family Medicine 06/14/18 Vasyl Boles MD [address] [place] [address] [place] [phone] Gastroenterology 06/20/24 documented as of this encounter
--- OUTSIDE RECORDS SUMMARY | 2024-08-22 12:57 | XMS_ITS | Patient Health Record ---
Author Organization [facility] Address [address] [place] [address] Care Team Providers Care Coding Specialist Name Role Phone Bharati Soriano MD Primary Care Provider Becca Vasyl Vieira Jr Unavailable Allergies Allergen (clinical drug ingredient) Drug/Non Drug Allergy documented on EMR Reaction Allergy Type Onset Date Status Simvastatin Unknown Drug Allergy Activ e Metoprolol Succinate Unknown Drug Allergy Active Lisinopril Unknown Drug Allergy Active Aspir-81 Unknown Drug Allergy Active Non-steroidal anti-inflammatory agent (FN) NSAIDS (uncoded) Unknown Allergy Active Reason For Referral No Information Medications Medication SIG (Take, Route, Frequency, Duration) Notes [...] MG TAKE 1 TABLET BY [facility] EVERY DAY AT BEDTIME Oral for 90 [...] Once a day for 30 day(s) Active Immunizations Vaccine Route Administration Date Status Comme nts Influenza Unknown 02/13/2016 Administered Influenza Unknown 03/14/2018 Administered Influenza Unknown 03/26/2021 Administered Social History Tobacco Use: Social History Observation Description Date Details (start date - stop date) Never Smoker NA - NA Tobacco Use/Smoking Question Answer Notes Patient is a nonsmoker Alcohol Screen Question Answer Notes Did you have a drink containing alcohol in the p ast year? No Points 0 Interpretation Negative Section Notes: occasional wine on weekends occasional wine on weekends occasional wine on weekends occasional wine on weekends Problems Problem Type SNOMED Code ICD Code Onset Dates Problem Status W/U Status Risk Notes Problem 863523842 Colon cancer screening (Z12.11) Active confirmed Problem 747838863 Radiation procti tis (K62.7) Active confirmed Problem 152986021 Gastroesophageal reflux disease without esophagitis (K21.9) Active confirmed Problem History of malignant neoplasm of rectum (150451404) 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) Active confirmed Problem 57708958 Incontinence of feces, unspecified fecal incontinence type (R15.9) Active confirmed Encounters Encounter Location Date Provider Diagnosis [facility] [address] [facility] [address] [place] [address] 09/20/2023 Vasyl Boles Jr Plan Of Treatment Future Test Test Name Order Date COLONOSCOPY 07/14/2018 COLONOSCOPY 12/25/2021 Insurance Providers Payer Name Payer Address Payer Phone Subscriber Number Group Number Insured Name Patient Relationship to Insured Coverage Start Date Coverage End Date MEDICARE OF [place] [address] [place] [id number] MICHAEL RENDONAD Self - patient is the insured [facility] [address] [place] [phone] [id number] PATT RENDON Self - patient is the insured Medical (General) History Medical History History ICD Code hypertension 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
--- OUTSIDE RECORDS SUMMARY | 2024-08-22 12:57 | XMS_ITS | Encounter Summary ---
Author Organization [employer] Address [address] [facility] 7t [place] [address] Care Team Providers Care Stoper Name Role Phone Bharati Soriano MD Primary Care Provider [phone]- [phone] Vasyl Boles MD Unavailable [phone] Encounter Details Date Type Department Care Team (Late st Contact Info) Description 08/02/2024 Orders Only [facility] 230 [place], [place] [phone] Bharati Soriano MD 230 [place], [place] [phone] Primary hypertension; Chronic renal impairment, stage 2 [...] Description 09/07/2024 1:00 PM EDT Office Visit [facility] ADULT DENTAL 230 [place] [address] Denzel, Elo 230 [place] [address] 09/19/2024 11:00 AM EDT Office Visit [facility] 230 [place] [address] documented as of this encounter Visit Diagnoses Diagnosis Primary hypertension Unspecified essential hypertension Chronic renal impairment, stage 2 (mild) documented in this encounter Additional Health Concerns Assessment Noted Time PHQ-9 Depression Total Score: 1 01/14/20 24 10:00 AM EDT documented as of this encounter Care Teams Stoper Relationship Specialty Start Date End Date Bharati Soriano MD 230 [place] [address] PCP - General Family Medicine 06/14/18 Vasyl Boles MD [address] [place] [address] [place] [phone] Gastroenterology 06/20/24 documented as of this encounter
--- OUTSIDE RECORDS SUMMARY | 2024-08-22 12:57 | XMS_ITS | Encounter Summary ---
Author Organization [employer] Address [address] [facility] 7t [place] [address] Care Team Providers Care Dead Mail Checker Name Role Phone Bharati Soriano MD Primary Care Provider [phone]- [phone] Vasyl Boles MD Unavailable [phone] Reason for Visit * Reason Comments Med Refill Encounter Details Date Type Department Care Team (Late st Contact Info) Description 07/30/2024 Refill [facility] 230 [place] [address] Bharati Soriano MD 230 [place] [address] Gastroesophageal reflux disease without esophagitis Social History [...] [facility] 230 [place] [address] Denzel, Elo 230 [place] [address] 09/19/2024 11:00 AM EDT Office Visit [facility] 230 [place] [address] documented as of this encounter Visit Diagnoses Diagnosis Gastroesophageal reflux disease without esophagitis Esophageal reflux documented in this encounter Additional Health Concerns Assessment Noted Time PHQ-9 Depression Total Score: 1 01/14/20 24 10:00 AM EDT documented as of this encounter Care Teams Dead Mail Checker Relationship Specialty Start Date End Date Bharati Soriano MD 230 [place] [address] PCP - General Family Medicine 06/14/18 Vasyl Boles MD [address] [place] [address] [place] [phone] Gastroenterology 06/20/24 documented as of this encounter
--- OUTSIDE RECORDS SUMMARY | 2024-08-22 12:57 | XMS_ITS | Encounter Summary ---
Author Organization [employer] [facility] Address [address] [place] [address] 7t [place] [address] Care Team Providers Care Early Interventionist Name Role Phone Bharati Soriano MD Primary Care Provider [phone]- [phone] Vasyl Boles MD Unavailable [phone] Reason for Visit * Reason Comments Med Refill Encounter Details Date Type Department Care Team (Late st Contact Info) Description 11/17/2022 Refill [facility] 230 [place] [address] Bharati Soriano MD 230 [place] [address] Wheeze Social History Tobacco Use Types Packs/Day [...] Description 09/07/2024 1:00 PM EDT Office Visit [facility]ULT D[facility] 230 [place] [address] Al Mahoneyaris 230 [place] [address] 09/19/2024 11:00 AM EDT Office Visit [facility] 230 [place] [address] documented as of this encounter Visit Diagnoses Diagnosis Wheeze Wheezing documented in this encounter Additional Health Concerns Assessment Noted Time PHQ-9 Depression Total Score: 0 10/16/19 23 2:27 PM EDT documented as of this encounter Care Teams Early Interventionist Relationship Specialty Start Date End Date Bharati Soriano MD 230 [place] [address] PCP - General Family Medicine 06/14/18 Vasyl Boles MD [address] [place] [address] [place] [phone] Gastroenterology 06/20/24 documented as of this encounter
--- OUTSIDE RECORDS SUMMARY | 2024-08-22 12:58 | XMS_ITS | Encounter Summary ---
Author Organization [employer] Address [address] [facility] 7t [place] [address] Care Team Providers Care Correctional Treatment Specialist Name Role Phone Bharati Soriano MD Primary Care Provider [phone]- [phone] Vasyl Boles MD Unavailable [phone] Reason for Visit * Reason Onset Date Comments Med Refill 05/03/2024 Encounter Details Date Type Department Care Team (Late st Contact Info) Description 05/03/2024 Telephone [facility] 230 [place] [address] Bharati Soriano MD 230 [place], [place] [phone] Med Refill Social History Tobacco Use Types [...] 5-325 MG tablet To be sent to: [facility]/pharmacy [address] [place] [address] documented in this encounter Plan of Treatment Upcoming Encounters Date Type Department Care Team (Late st Contact Info) Description 09/07/2024 1:00 PM EDT Office Visit [facility] ADULT DENT[facility] 230 [place] [address] Denzel, Elo 230 [place] [address] 09/19/2024 11:00 AM EDT Office Visit [facility] 230 [place] [address] documented as of this encounter Visit Diagnoses Not on filedocumented in this encounter Additional Health Concerns Assessment Noted Time PHQ-9 Depression Total Score: 1 01/14/20 24 10:00 AM EDT documented as of this encounter Care Teams Correctional Treatment Specialist Relationship Specialty Start Date End Date Bharati Soriano MD [address] [place] [address] PCP - General Family Medicine 06/14/18 Vasyl Boles MD [address] [place] [phone] Gastroenterology 06/20/24 documented as of this encounter
--- OUTSIDE RECORDS SUMMARY | 2024-08-22 12:58 | XMS_ITS | Encounter Summary ---
Author Organization [facility] Address [address] [place] [address] 7 [place] [address] Care Team Providers Care Green Meat Packer Name Role Phone Bharati Soriano MD Primary Care Provider [phone]- [phone] Vasyl Boles MD Unavailable [phone] Encounter Details Date Type Department Care Team (Latest Contact Info) Description 06/29/2018 Abstract [facility] CON[facility] Dental, Provider, DDS Social History [...] Description 09/07/2024 1:00 PM EDT Office Visit [facility] ADULT DENTAL 230 [place] [address] Denzel, Elo [address] [place] [address] 09/19/2024 11:00 AM EDT Office Visit [facility] [address] [place] [address] documented as of this encounter Visit Diagnoses Not on filedocumented in this encounter Care Teams Green Meat Packer Relationship Specialty Start Date End Date Bharati Soriano MD 230 [place] [address] PCP - General Family Medicine 06/14/18 Vasyl Boles MD [address] [place] [address] [address] [place] [phone] Gastroenterology 06/20/24 documented as of this encounter
--- OUTSIDE RECORDS SUMMARY | 2024-08-22 12:58 | XMS_ITS | Encounter Summary ---
Author Organization [employer] [facility] Address [address] [place] [address] 7 [place] [address] Care Team Providers Care Carton Machine Operator Name Role Phone Bharati Soriano MD Primary Care Provider [phone]- [phone] Vasyl Boles MD Unavailable [phone] Encounter Details Date Type Department Care Team (Latest Contact Info) Description 08/23/2019 Abstract [facility] CON[facility] Dental, Provider, DDS Social History [...] Description 09/07/2024 1:00 PM EDT Office Visit [facility] ADULT DENTAL 230 [place] [address] Denzel, Elo [address] [place] [address] 09/19/2024 11:00 AM EDT Office Visit [facility] 230 [place] [address] documented as of this encounter Visit Diagnoses Not on filedocumented in this encounter Care Teams Carton Machine Operator Relationship Specialty Start Date End Date Bharati Soriano MD 230 [place] [address] PCP - General Family Medicine 06/14/18 Vasyl Boles MD [address] [place] [address] [address] [place] [phone] Gastroenterology 06/20/24 documented as of this encounter
--- OUTSIDE RECORDS SUMMARY | 2024-08-22 12:58 | XMS_ITS | Encounter Summary ---
Author Organization [employer] Address [address] [facility] 7t [place] [address] Care Team Providers Care Binder Sorter Name Role Phone Bharati Soriano MD Primary Care Provider [phone]- [phone] Vasyl Boles MD Unavailable [phone] Reason for Visit * Reason Comments Med Refill Encounter Details Date Type Department Care Team (Late st Contact Info) Description 05/10/2024 Refill [facility] [address] [place] [address] Bharati Soriano MD 230 [place] [address] Dyslipidemia; Other osteoporosis without current pathological fracture; [...] 09/07/2024 1:00 PM EDT Office Visit [facility] ADULT DENTAL [address] [place] [address] Denzel, Elo [address] [place] [address] 09/19/2024 11:00 AM EDT Office Visit [facility] MED[facility] [address] [place] [address] documented as of this encounter Visit Diagnoses Diagnosis Dyslipidemia Other and unspecified hyperlipidemia Other osteoporosis without current pathological fracture Mild intermittent asthma, unspecified whether complicated documented in this encounter Additional Health Concerns Assessment Noted Time PHQ-9 Depression Total Score: 1 01/14/20 24 10:00 AM EDT documented as of this encounter Care Teams Binder Sorter Relationship Specialty Start Date End Date Bharati Soriano MD [address] [place] [address] PCP - General Family Medicine 06/14/18 Vasyl Boles MD [address] [place] [phone] Gastroenterology 06/20/24 documented as of this encounter
== END 2024-08-22 10:44 | disposition home or self-care (01) ==
LOC: HO.MAMMO 10:43
PROVIDERS: PCP Family Medicine; Visit Provider Family Medicine
DX: M81.0 Age-related osteoporosis without current pathological fracture (principal)
CPT/HCPCS: 77080

== ENCOUNTER → 2024-08-22 11:00 | Outpatient (BNV) | payer MEDICARE, MEDICAID, SELFPAY | PROVIDERS: PCP Family Medicine; Visit Provider Radiology Diagnostic Radiology | DX: E28.39 Other primary ovarian failure (principal) | CPT/HCPCS: 77080 ==

== ENCOUNTER 2024-09-19 16:55 | Outpatient (REF) | payer MEDICARE, MEDICAID, SELFPAY ==
--- OUTSIDE RECORDS SUMMARY | 2024-09-19 19:12 | XMS_ITS | Encounter Summary ---
Author Organization [employer] Address [address] [facility] 7t [place] [address] Care Team Providers Care Management Trainee Program Stores Name Role Phone Bharati Soriano MD Primary Care Provider [phone] Vasyl Boles MD Unavailable [phone] Amador Green MD Unavailable [phone] Encounter Details Date Type Department Care Team (Late st Contact Info) Description 06/12/2022 Orders Only [facility] [address] [place] [address] Leena Verdin, ANP [address] [place] [address] Social History Tobacco Use Types Packs/Day Years [...] Care Team (Late st Contact Info) Description 12/19/2024 11:00 AM EDT Office Visit [facility] MED[facility] [address] [place], [place] [phone] 03/14/2025 1:00 PM EDT Office Visit [facility] ADULT DENTAL [address] [place] [address] Elo Mahoney [address] [place] [address] documented as of this encounter Visit Diagnoses Not on filedocumented in this encounter Care Teams Management Trainee Program Stores Relationship Specialty Start Date End Date Bharati Soriano MD [address] [place] [id number] PCP - General Family Medicine 06/14/18 Vasyl Boles MD [address] [place] [address] [place] [phone] Gastroenterology 06/20/24 Amador Green MD [address] [place] [phone] Rheumatology 09/18/24 documented as of this encounter
--- OUTSIDE RECORDS SUMMARY | 2024-09-19 19:13 | XMS_ITS | Encounter Summary ---
Author Organization [facility] Address [address] [place] [address] 7 [place] [address] Care Team Providers Care Furniture Assembly Supervisor Name Role Phone Bharati Soriano MD Primary Care Provider [phone] Vasyl Boles MD Unavailable [phone] Amador Green MD Unavailable [phone] Encounter Details Date Type Department Care Team (Latest Contact Info) Description 03/16/2022 Abstract [facility] CONVERSIONS Dental, Provider, DDS Social History Tobacco [...] Description 12/19/2024 11:00 AM EDT Office Visit [facility] MED[facility] [address] [place] [address] 03/14/2025 1:00 PM EDT Office Visit [facility] ADULT DENTAL [address] [place] [address] Denzel Elo [address] [place] [address] documented as of this encounter Visit Diagnoses Not on filedocumented in this encounter Care Teams Furniture Assembly Supervisor Relationship Specialty Start Date End Date Bharati Soriano MD [address] [place] [address] PCP - General Family Medicine 06/14/18 Vasyl Boles MD [address] [place] [phone] Gastroenterology 06/20/24 Amador Green MD [address] [place] [phone] Rheumatology 09/18/24 documented as of this encounter
--- OUTSIDE RECORDS SUMMARY | 2024-09-19 19:13 | XMS_ITS | Encounter Summary ---
Author Organization [employer] Address [address] [facility] 7t [place] [address] Care Team Providers Care Safety Glass Installer Name Role Phone Bharati Soriano MD Primary Care Provider [phone] Vasyl Boles MD Unavailable [phone] Amador Green MD Unavailable [phone] Reason for Visit * Reason Comments Med Refill Encounter Details Date Type Department Care Team (Late st Contact Info) Description 07/16/2024 Refill [facility] MED[facility]INE [address] [place], [place] [phone] Bharati Soriano MD [address] [place] [address] Mild intermittent asthma, unspecified whether complicated; Acquired [...] Description 12/19/2024 11:00 AM EDT Office Visit [facility] [address] [place] [address] 03/14/2025 1:00 PM EDT Office Visit [facility] ADULT DENTAL [address] [place] [address] Denzel Elo [address] [place] [address] documented as of this encounter Visit Diagnoses Diagnosis Mild intermittent asthma, unspecified whether complicated Acquired hypothyroidism Unspecified hypothyroidism documented in this encounter Additional Health Concerns Assessment Noted Time PHQ-9 Depression Total Score: 1 01/14/20 24 10:00 AM EDT documented as of this encounter Care Teams Safety Glass Installer Relationship Specialty Start Date End Date Bharati Soriano MD [address] [place] [address] PCP - General Family Medicine 06/14/18 Vasyl Boles MD [address] [place] [address] [place] [phone] Gastroenterology 06/20/24 Amador Green MD [address] [place] [phone] Rheumatology 09/18/24 documented as of this encounter
--- OUTSIDE RECORDS SUMMARY | 2024-09-19 19:13 | XMS_ITS | Encounter Summary ---
Author Organization [employer] Address [address] [facility] 7[address] [place] [address] Care Team Providers Care Administrative Technician Name Role Phone Bharati Soriano MD Primary Care Provider [phone] Vasyl Boles MD Unavailable [phone] Amador Green MD Unavailable [phone] Reason for Visit * Reason Comments Med Refill Encounter Details Date Type Department Care Team (Late st Contact Info) Description 07/04/2023 Refill [facility] MEDIC[facility] [address] [place], [place] [phone] Bharati Soriano MD [address] [place] [address] Acquired hypothyroidism; Dyslipidemia Social History Tobacco Use [...] [facility] [address] [place] [address] 03/14/2025 1:00 PM EDT Office Visit [facility] ADULT DENTAL [address] [place] [address] Denzel, Elo [address] [place] [address] documented as of this encounter Visit Diagnoses Diagnosis Acquired hypothyroidism Unspecified hypothyroidism Dyslipidemia Other and unspecified hyperlipidemia documented in this encounter Additional Health Concerns Assessment Noted Time PHQ-9 Depression Total Score: 0 10/16/19 23 2:27 PM EDT documented as of this encounter Care Teams Administrative Technician Relationship Specialty Start Date End Date Bharati Soriano MD [address] [place] [address] PCP - General Family Medicine 06/14/18 Vasyl Boles MD [address] [place] [phone] Gastroenterology 06/20/24 Amador Green MD [address] [place] [phone] Rheumatology 09/18/24 documented as of this encounter
--- OUTSIDE RECORDS SUMMARY | 2024-09-19 19:13 | XMS_ITS | Clinical Summary ---
Author Organization [facility] Address [address] [place] [address] [address] [place] [address] Care Team Providers Care Package Dyer Name Role Phone Bharati Soriano MD Primary Care Provider [phone] Vasyl Boles MD Unavailable [phone] Amador Green MD Unavailable [phone] Allergies Active Allergy Reactions Criticality Noted Date [...] TAKING MEDICATION 12 tablet 3 024 Active loperamide (Imodium) 2 MG capsuleIndication s:Chronic [...] Active losartan (Cozaar) 25 MG tabletIndications :Primary hypertension,[employer] mayte renal impairment, stage 2 (mild) Take 1 tablet (25 mg) by mouth 2 times daily. 90 tablet 3 025 Active oxyCODONE-acetami nophen (Percocet) 5-325 MG tabletIndications :Pain Take 1 tablet by mouth every 6 (six) hours if needed for severe pain. 84 tablet 025 Active albuterol (Ventolin HFA) 108 (90 Base) MCG/ACT inhalerIndication s:Mild intermittent asthma, unspecified whether complicated TAKE 2 PUFFS BY MOUTH EVERY 4-6 HOURS NEEDED 18 g 1 025 Active levothyroxine (Synthroid, Levoxyl) 25 MCG tabletIndications :Acquired hypothyroidism TAKE 1 TABLET BY MOUTH EVERY DAY 90 tablet 3 025 Active levothyroxine (Synthroid, Levoxyl) 25 MCG tabletIndications :Acquired hypothyroidism TAKE 1 TABLET BY MOUTH EVERY DAY 90 tablet 3 024 2024 Discontinued albuterol (Ventolin HFA) 108 (90 Base) MCG/ACT inhalerIndication s:Mild intermittent asthma, unspecified whether complicated TAKE 2 PUFFS BY MOUTH EVERY 4-6 HOURS NEEDED 18 g 1 025 2024 Discontinued oxyCODONE-acetami nophen (Percocet) 5-325 MG tabletIndications :Pain Take 1 tablet by mouth every 6 (six) hours if needed for severe pain. 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 -Anticipatory guidance discussed. -Preventative care / harm reduction discussed. Assessment & Plan (05/12/2023 10:18 AM EST): -Normal growth and development. -Anticipatory guidance discussed. -Preventative care / harm reduction discussed. Other specified health status 04/24/2023 Overview (07/12/2024): -next comprehensive annual evaluation due after 07/12/25 -eye care facilitated by [facility] -dental home is [facility] -Health care proxy given and filed 12/22/23 Assessment & Plan (07/12/2024 4:10 PM EST): -next comprehensive annual evaluation due after 07/12/25 -eye care facilitated by [facility] -dental home is [facility] -Health care proxy given and filed 12/22/23 Assessment & Plan (12/22/2023 2:27 PM EDT): -next physical exam due after 05/12/2024 -eye care facilitated by [facility] -dental home is [facility] -Health care proxy given and filed [...] collitis Lupus (systemic lupus erythematosus) 05/08/2022 Overview (09/18/2024): Diagnoses 04/2018 baed on arthralgia, Raynauds, Sicca symptoms, positive LUISITO, positive Sm and MAINTENANCE OF WAY FOREMAN and leukopenia. Followed by rheumatology. Lat note from Amador Green from 09/14/24 reviewed. 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 Followed by rheumatology. Lat note from Dr. Flores 04/06/23 reviewed. 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 Followed by rheumatology. Lat note from Dr. Flores 04/06/23 reviewed. -Plaquenil 200mg BID started 04/2018 -continue regular eye exams -s/p flu vaccine 02/2020 done at [facility] -PCV 04/2019 Assessment & Plan (05/12/2023 10:17 AM EST): Diagnoses 04/2018 baed on arthralgia, Raynauds, Sicca symptoms, positive LUISITO, positive Sm and MAINTENANCE OF WAY FOREMAN and leukopenia. Followed by rheumatology. Lat note from Dr. Flores 04/06/23 reviewed. -Plaquenil 200mg BID started 04/2018 -continue regular eye exams -s/p flu vaccine 02/2020 done at [facility] -PCV 04/2019 Assessment & Plan (10/15/2022 2:23 PM EDT): Diagnoses 04/2018 baed on arthralgia, Raynauds, Sicca symptoms, positive LUISITO, positive Sm and MAINTENANCE OF WAY FOREMAN and leukopenia. Followed by rheumatology. -Plaquenil 200mg BID started 04/2018 -continue regular eye exams -s/p flu vaccine 02/2020 done at [facility] -PCV 23 04/2019 Chronic diarrhea 05/08/2022 Osteoporosis 05/08/2022 Overview (08/22/2024): Final Menstrual Period: > 10 years ago Symptoms: none Risk factors for osteoporosis: postmenopausal -USPTF recommends DEXA be preformed on all [...] intake -Supplements may include magnesium, omega-3 -DEXA 08/21/24Results: MM/XR DEXA axial skeleton IMPRESSION: Based on bone mineral density, and according to World Health Organization (WHO) criteria, the diagnosis is consistent with osteoporosis. Assessment & Plan (07/12/2024 4:15 PM EST): [...] 06/15/2012 Chronic low back pain 04/04/2012 Overview (09/19/2024): [facility].Per last notes: Good engagement and participation with Group Medical Visit model Encouraged multifactorial approach to pain control including pharm and non-pharm modalities Followup every 3 months with pill count and utox prescribed lidocaine (Lidoderm) 5 % patch 07/12/24 Assessment & Plan (09/19/2024 2:07 PM EDT): Pill count as expected, utox positive BZO (however previous false positive. Confirmatory sent to lab) Assessment & Plan (07/13/2024 4:17 PM EST): Good engagement and participation with Group Medical Visit model Encouraged multifactorial approach to pain control including pharm and non-pharm modalities Pill count less than expected, Utox positive for buprenorphine, BZO, and opioid. Confirmatory testing sent to lab. See solar energy technician. Assessment & Plan (07/12/2024 4:09 PM EST): [...] -UTOX and pill count as expected. See solar energy technician for further details -Encouraged to cont with [...] Encounters Date Type Department Care Team Description 09/19/2024 11:00 AM EDT Office Visit [facility] [address] [place] [phone] Mily Alfredo FNP Chronic low back pain, unspecified back pain laterality, unspecified whether sciatica present (Primary Dx); senior living (current) use of opiate analgesic 09/19/2024 Travel 09/07/2024 1:00 PM EDT Office Visit [facility] [address] [place] [phone] Elo Mahoney Crowded teeth (Primary Dx); Dental plaque; Excessive attrition of teeth, limited to enamel; Normal oral exam 09/07/2024 Refill [facility] [address] [place] [phone] Bharati Soriano MD Mild intermittent asthma, unspecified whether complicated; Acquired hypothyroidism 09/06/[address] [address] Bharati Soriano MD Durable Medical Equipment 09/04/[address] [address] Bharati Soriano MD DME from [employer] 08/31/[address] [address] Bharati Soriano MD [facility] (Underwear, prevail nu-fit med) 08/31/2024 Refill [facility] [address] [place] [phone] Bharati Soriano MD Pain 08/25/2024 Population Health Risk Score [facility] ([facility]) Department [address] [place] [phone] Provider, Population Health Generic 08/09/2024 Telephone [facility] [address] [place] [phone] Bharati Soriano MD 08/02/2024 Orders Only [facility] [address] [place] [phone] Bharati Soriano MD Primary hypertension; Chronic renal impairment, stage 2 (mild) 08/01/2024 Orders Only [address] [address] Rosi Vergara MD Primary hypertension; Chronic renal impairment, stage 2 (mild) 08/01/2024 Orders Only [address] [address] Bharati Soriano MD Primary hypertension; Chronic renal impairment, stage 2 (mild) 07/30/[address] [address] Bharati Soriano MD Gastroesophageal reflux disease without esophagitis 07/26/[address] [address] Bharati Soriano MD Pain 07/24/[address] [address] Bharati Soriano MD Prior Authorization (Lidocaine 5% patch) 07/16/[address] [address] Bharati Soriano MD Mild intermittent asthma, unspecified whether complicated; Acquired hypothyroidism 07/12/2024 2:45 PM EST Office Visit [address] [address] Bharati Soriano MD Other forms of systemic [...] status 07/11/2024 11:00 AM EST Office Visit [address] [address] Mily Alfredo FNP Chronic low back pain, unspecified back pain laterality, unspecified whether sciatica present (Primary Dx); Lumbar radiculopathy; Sacroiliac joint pain; senior living (current) use of opiate analgesic 07/11/[address] [address] Isaura Goode [place] chartprep 07/11/2024 Telephone [facility] [address] [place] [address] Jocelyn Randall RN 07/11/2024 Travel 07/04/2024 Refill [facility] [address] [place] [address] Bharati Soriano MD Pain 06/30/2024 Patient Outreach [facility] [address] [place], [place] [phone] Bharati Soriano MD Pre-visit Planning (SDOH Screening negative and Tobacco screening negative) from Last 3 Months Immunizations Name Administration [...] 12+ 10/02/2020,09/05/19 21 Pfizer Covid-19 Vaccine 12+ 05/12/2023, 2,05/01/2021 Pfizer Covid-19 Vaccine 12+ willy-sucrose (Alegria Cap) [...] Description 12/19/2024 11:00 AM EDT Office Visit [facility] [address] [place] [address] 03/14/2025 1:00 PM EDT Office Visit [facility] [address] [place] [address] Denzel, Elo [address] [place] [address] Health Maintenance Due Date Last Done Comments CT Colonography 1955 FIT DNA/Cologuard 1955 FIT 1955 FOBT 1955 Sigmoidoscopy 1955 Dental X-Ray: Bitewings 07/21/2024 07/20/19 24 (Patient Refused) Alcohol/Substance Use Screening 12/21/2024 12/22/2023 Depression Screening 01/13/2025 01/14/2024, 01/14/20 24 Dental Oral Exam 03/11/2025 09/07/2024, 07/20/2023 Dental Prophylaxis 03/11/2025 09/07/2024, 0 03/09/2024, 07/20/2023, Additional history exists SDOH Screening 06/30/2025 06/30/2024 COVID-19 Vaccine ( season) 2025 05/12/2023, 01/22/2022, 01/22/2022, Additional history exists Postponed from 02/13/2024 (Patient Refused) Tobacco Screening 09/07/2025 09/07/2024 Mammogram 09/28/2025 09/29/2023, 09/12, 09/16/2022, Additional history exists Colonoscopy 03/30/2027 03/30/2022 Colorectal Cancer Screening 03/30/2027 Dental X-Ray: Full Mouth 09/09/2027 025, 03/26/2022, 03/26/2021 Lipid Panel 04/26/2029 04/26/2024, 05/0 02/2023, 05/01/2021 [...] Comments POCT MADHU-14 URINE DRUG SCREEN Routine 09/19/2024 11:42 AM EDT 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 Chronic low back pain, unspecified back pain laterality, unspecified whether sciatica present POCT MADHU-14 URINE DRUG SCREEN Routine 09/19/2024 11:40 AM EDT senior living (current) use of opiate analgesic Chronic low back pain, unspecified back pain laterality, unspecified whether sciatica present AMB REFERRAL TO RHEUMATOLOGY Routine 09/11/2024 Other forms of systemic lupus erythematosus, unspecified organ involvement status (CMS/HCC) PERIODIC ORAL EVALUATION - ESTABLISHED PATIENT Routine 09/07/2024 1:00 PM EDT CASE PRESENTATION, DETAILED AND EXTENSIVE TREATMENT PLANNING Routine 09/07/2024 1:00 PM EDT Crowded teeth Dental plaque Excessive attrition of teeth, limited to enamel ORAL HYGIENE INSTRUCTIONS Routine 09/07/2024 1:00 PM EDT Crowded teeth Dental plaque Excessive attrition of teeth, limited to enamel PROPHYLAXIS - ADULT Routine 09/07/2024 1 :00 PM EDT Crowded teeth Dental plaque Excessive attrition of teeth, limited to enamel PANORAMIC RADIOGRAPHIC IMAGE Routine 09/07/2024 1:00 PM EDT Crowded teeth Dental plaque Excessive attrition of teeth, limited to enamel BD DEXA AXIAL Routine 08/22/2024 11:00 AM EDT Osteoporosis, unspecified osteoporosis type, unspecified pathological fracture presence US ABDOMEN COMPLETE Routine 08/09/2024 8 :38 [...] STANDARD Routine 04/26/2024 10:02 AM EST Dyslipidemia HM MAMMOGRAPHY Routine 09/29/2023 11:17 AM EDT HM COLONOSCOPY Routine 03/30/2022 HEPATITIS C ANTIBODY (EXTERNAL RESULTS ONLY) Routine 03/18/2018 2:33 PM EDT from Last 3 Months or Most Recently Relevant to Health Maintenance Results * (ABNORMAL) POCT MADHU-14 Urine Drug Screen (09/19/2024 11:42 AM EDT) Only the most recent of3 resultswithin the time period is included. THC Positive Benzodiazepines Screen, Urine Positive Oxycodone Screen, Urine Positive Urine Urine specimen obtained by clean catch procedure / Unknown 09/19/2024 11:42 AM EDT Narrative Jocelyn Randall RN - 09/19/2024 11:42 AM EDT .UTOX cup Lot#[id number] Exp. 01/31/26 Internal Pass Control us Mily Alfredo CATERING DIRECTOR POINT OF CARE TEST ENTER/EDIT ORDERABLES Final Result * Referral to Rheumatology (09/11/2024) us Bharati Soriano MD OUTPATIENT REFERRAL ORDERA BLES Final Result * BD DEXA Axial (08/22/2024 11:00 AM EDT) Anatomical Region Laterality Modality Body Radiographic Na ging 08/22/2024 11:0 0 AM EDT Narrative 08/22/2024 12:56 PM EDT ? [facility] ? [address] ?[place] [address] ? Mammography Report ? Signed ? Patient: Fink Fink,Sara ?MR#: ?? [id number] ? : 1955 ?Acct:[id number] ? Age/Sex: 68 / F ?ADM Date: 03/11/25 ? Loc: HO.MAMMO ? Attending Dr: Bharati Soriano MD ? Ordering Physician: Bharati Soriano MD ?Results: ? Date of Service: 08/22/24 ?Follow Up: ? Procedure(s): XR DEXA axial skeleton ?? Accession Number(s): [id number] ? cc: Bharati Soriano MD ? EXAMINATION: ??DXA BONE DENSITY AXIAL ? HISTORY: ??Estrogen deficiency ? TECHNIQUE: [employer] Dual energy absorptiometry (DEXA) ?? of the lumbar spine, total left hip, and femoral neck was performed. ? COMPARISON: Comparison is made with the prior examination dated 02/15/2018 ? FINDINGS: ? The bone mineral density of the lumbar spine is 1.116 with a T-score of ?? -0.5, and a Z-score of 1.4. ? This represents a BMD change of 12.2% compared to the prior exam. ??This ?? is statistically significant. ? The bone mineral density of the left total hip is 0.649 with a T-score ?? of -2.8, and a Z-score of -1.2. ? This represents a BMD change of -2.1% compared to the prior exam. ??This ?? is not statistically significant. ? The bone mineral density of the left femoral neck is 0.651 with a ?? T-score of -2.8, and a Z-score of -0.9. ? This represents a BMD change of -4.0% compared to the prior exam. ? FRACTURE RISK: ?? The FRAX index suggests a ten year probability of major osteoporotic ?? fracture of 10.0%, and of hip fracture 3.0%. ? MM/XR DEXA axial skeleton ?? IMPRESSION: ?? Based on bone mineral density, and according to World Health ?? Organization (WHO) criteria, the diagnosis is consistent with ?? osteoporosis. ? All bone density values are in grams per centimeter squared (g/cm2). ?? Statistically, 68% of repeat scans fall within 1 SD (+/- 0.010 g/cm2 ?? for AP spine L1-L4) and 1 SD (+/- 0.012 g/cm2 for femur total) ?? FRAX is a trademark of the [employer]'s ?? [place] for Metabolic Bone Disease, a World Health Organization (WHO) ?? Collaborating Center. ? Electronically signed by: ??Babak Mccrary MD ??08/22/2024 12:53 PM EDT ? Dictated By: ?Babak Mccrary MD ? Signed By: ?<Electronically signed by Babak Mccrary MD in OV> ?08/22/24 1253 ? DD/ 1100 ? TD/TT: 08/22/24 1110 ? Dump Operator: ? Procedure Note Donkiarrater, Image - 08/22/2024 Juan Pablo [facility] [address] [place] [address] Mammography Report Signed Patient: Davis LancasteradMR#: [id number] : 4Acct:[id number] Age/Sex: 68 / FADM Date: 08/22/24 Loc: HO.MAMMO Attending Dr: Bharati Soriano MD Ordering Physician: Bharati Sorianoults: Date of Service: 08/22/24Follow Up: Procedure(s): XR DEXA axial skeleton Accession Number(s): [id number] cc: Bharati Soriano MD EXAMINATION: DXA BONE DENSITY AXIAL HISTORY: Estrogen deficiency TECHNIQUE: [employer] Dual energy absorptiometry (DEXA) of the lumbar spine, total left hip, and femoral neck was performed. COMPARISON: Comparison is made with the prior examination dated 02/15/2018 FINDINGS: The bone mineral density of the lumbar spine is 1.116 with a T-score of -0.5, and a Z-score of 1.4. This represents a BMD change of 12.2% compared to the prior exam. This is statistically significant. The bone mineral density of the left total hip is 0.649 with a T-score of -2.8, and a Z-score of -1.2. This represents a BMD change of -2.1% compared to the prior exam. This is not statistically significant. The bone mineral density of the left femoral neck is 0.651 with a T-score of -2.8, and a Z-score of -0.9. This represents a BMD change of -4.0% compared to the prior exam. FRACTURE RISK: The FRAX index suggests a ten year probability of major osteoporotic fracture of 10.0%, and of hip fracture 3.0%. MM/XR DEXA axial skeleton IMPRESSION: Based on bone mineral density, and according to World Health Organization (WHO) criteria, the diagnosis is consistent with osteoporosis. All bone density values are in grams per centimeter squared (g/cm2). Statistically, 68% of repeat scans fall within 1 SD (+/- 0.010 g/cm2 for AP spine L1-L4) and 1 SD (+/- 0.012 g/cm2 for femur total) FRAX is a trademark of the [employer] [place] for Metabolic Bone Disease, a World Health Organization (WHO) Collaborating Center. Electronically signed by: Babak Mccrary MD 08/22/2024 12:53 PM EDT Dictated By: Babak Mccrary MD Signed By: <Electronically signed by Babak Mccrary MD in OV> 08/22/24 1253 DD/ 1100 TD/TT: 08/22/24 1110 Dump Operator: us Bharati Soriano MD IMG DXA PROCEDURES Final R esult * US Abdomen Complete (08/09/2024 8:38 AM EST) Anatomical Region Laterality Modality Abdomen Ultrasound 08/09/2024 8:38 AM EST Narrative 08/09/2024 10:07 AM EST ? [facility] ?[address] ?[place] [address] ? Ultrasound Report ? Signed ? Patient: Fink Fink,Sara ?MR#: ?? [id number] ? : 1955 ?Acct:[id number] ? Age/Sex: 68 / F ?ADM Date: 08/09/24 ? Loc: HO.US ? Attending Dr: Bharati Soriano MD ? Ordering Physician: Bharati Soriano MD ?? Date of Service: 08/09/24 ?? Procedure(s): US abdomen complete ?? Accession Number(s): [id number] ? cc: Bharati Soriano MD ? EXAMINATION: [...] ??Babak Mccrary MD ??08/09/2024 10:04 AM EST ? Dictated By: ?Babak Mccrary MD ? Signed By: ?<Electronically signed by Babak Mccrary MD in OV> ?08/09/24 1004 ? DD/ 0838 ? TD/TT: 08/09/24 0848 ? Dump Operator: ? Procedure Note Donotuseinterpreter, Image - 08/09/[address] [address] Ultrasound Report Signed Patient: Davis LancasteradMR#: [id number] : 4Acct:[id number] Age/Sex: 68 / FADM Date: 08/09/24 Loc: HO.US Attending Dr: Bharati Soriano MD Ordering Physician: Bharati Soriano MD Date of Service: 08/09/24 Procedure(s): US abdomen complete Accession Number(s): [id number] cc: Bharati Soriano MD EXAMINATION: US ABDOMEN [...] 08/09/24 1004 DD/ 0838 TD/TT: 08/09/24 0848 Dump Operator: Bharati Soriano MD [facility] US PROCEDURES Final Re sult * Drug Monitoring, Benzodiazepines, Quantitative, Urine (07/11/2024 11:30 AM EST) Nordiazepam, GCMS Urine NEGATIVE [facility] [...] [facility] Benzodiazepines Comments SEE NOTE [facility] Comment:This drug testing is for medical treatment only.Analysis was performed as non-forensic testing andthese results should be used only by healthcareproviders to render diagnosis or treatment, or tomonitor progress of medical conditions.LDT Notes:Confirmation tests were developed and their analyticalperformance characteristics have been determined by[facility]. It has not been cleared or approvedby the FDA. This assay has been validated pursuant tothe CLIA regulations and is used for clinical purposes.Healthcare Providers needing Interpretation assistance,please contact us at [phone] ( )M-F, 8am to 10pm ESTTHIS TEST PERFORMED AT:[facility] [address] [phone] DIRECTOR: VAUGHN BAUTISTA MD Urine (Urine, Random) 07/11/2024 11:30 AM EST 07/11/2024 4:08 PM EST Mily Alfrdeo [facility] URINE ORDERABLES Final Res ult [facility] [address] [place], [place] [phone] * Drug Toxicology Monitoring Buprenorphine, with Confirmation, Urine (07/11/2024 11:30 AM EST) Buprenorphine NEGATIVE [facility] Comment:REFERENCE RANGE: <2 ng/mL Norbuprenorphine NEGATIVE [facility] Comment:REFERENCE RANGE: <2 ng/mL Naloxone, Urine NEGATIVE [facility] Comment:REFERENCE RANGE: <2 ng/mL Buprenorphine Comments SEE NOTE [facility] Comment:This drug testing is for medical treatment only.Analysis was performed as non-forensic testing andthese results should be used only by healthcareproviders to render diagnosis or treatment, or tomonitor progress of medical conditions.LDT Notes:Confirmation tests were developed and their analyticalperformance characteristics have been determined by[facility]. It has not been cleared or approvedby the FDA. This assay has been validated pursuant tothe CLIA regulations and is used for clinical purposes.Healthcare Providers needing Interpretation assistance,please contact us at [phone] ( )M-F, 8am to 10pm ESTTHIS TEST PERFORMED AT:[facility] [address] [phone] DIRECTOR: VAUGHN BAUTISTA MD Urine (Urine, Random) 07/11/2024 11:30 AM EST 07/11/2024 4:08 PM EST Mily Alfredo CATERING DIRECTOR LAB URINE ORDERABLES Final Res ult Performing Organization Address City/[facility]/ZIP Co de Phone Number [facility] [address] [place] [address] [phone] * Lipid Panel, Standard (04/26/2024 10:02 AM EST) Triglycerides 118 <150 mg/dL [facility] Comment:Desirable Triglyceri de: less than 150 mg/dLBorderline High Triglyceride 150-199 mg/dLHigh Triglyceride: 200-499 mg/dLVery High Triglyceride: greater than or equal to 5OO mg/dL Cholesterol 173 <200 mg/dL [facility] Comment:Desirable Cholestero l: less than 200 mg/dLBorderline High Cholesterol: 200-239 mg/dLHigh Cholesterol: greater than 239 mg/dL LDL Cholesterol Calculated 84 <100 mg/dL [facility] Comment:Desirable LDL: less than 100 mg/dLNear Optimal/Above Optimal LDL: 110- 129 mg/dLBorderline High LDL: 130-159 mg/dLHigh LDL: 160-189 mg/dLVery High LDL: greater than or equal to 190 mg/dL HDL Cholesterol 66 >40 mg/dL [facility] Comment:Desirable HDL: great er than 40 mg/dL Note: This HDL assay may give artificially low results in patients with liver disease. Blood Venous blood specimen / Unknown 04/26/2024 10:02 AM EST 04/26/2024 10:02 AM EST us Bharati Soriano MD LAB BLOOD ORDERABLES Final Result Performing Organization Address City/[facility]/ZIP Co de Phone Number [facility] [address] [place] [address] [phone] * (ABNORMAL) Mammography (09/29/2023 11:17 AM EDT) Mammogram BIRADS 1 Normal, Abnormal, BIRADS 1 , BIRADS 2 Anatomical Region Laterality Modality Other Historical Provider HEALTH MAINTENANCE Final Result * Colonoscopy (03/30/2022) Colonoscopy Tubular adenoma Dr. Nugent us Historical Provider HEALTH MAINTENANCE Final Result * Hepatitis C Antibody (03/18/2018 2:33 PM EDT) Hepatitis C Antibody Nonreactive Blood 03/18/2018 2:33 PM EDT us Historical Provider POINT OF CARE TEST ENTER/ EDIT ORDERABLES Final Result from Last 3 Months or Most Recently Relevant to Health Maintenance Insurance [id number] D[facility] MEDICAID STAND ADULT Advance Directives Documents on File Type Date Recorded Patient Lead Programmer Expl anation Advance Directives and Living Will 12/22/2023 Health Care Proxy 12/22/23 Care Teams Package Dyer Relationship Specialty Start Date End Date Christie, MD Bharati [address] [place] [address] PCP - General Family Medicine 06/14/18 Vasyl Boles MD [address] [place] [address] [address] [place] [address] Gastroenterology 06/20/24 Amador Green MD [address] [place] [address] Rheumatology 09/18/24
--- OUTSIDE RECORDS SUMMARY | 2024-09-19 19:13 | XMS_ITS | Encounter Summary ---
Author Organization [employer] Address [address] [facility] 7t [place] [address] Care Team Providers Care Chief Service Dispatcher Name Role Phone Bharati Soriano MD Primary Care Provider +1- [phone] Vasyl Boles MD Unavailable [phone] Amador Green MD Unavailable [phone] Encounter Details Date Type Department Care Team (Latest Contact Info) Description 09/19/2024 Travel Social History Tobacco Use Types Packs/Day [...] the past 12 months, has t he grabHalo, gas, oil or water company threatened to [...] Description 12/19/2024 11:00 AM EDT Office [facility] MEDICINE [address] [place] [address] 03/14/2025 1:00 PM EDT Office Visit [facility] ADULT DENTAL [address] [place] [address] Denzel Elo [address] [place] [address] documented as of this encounter Visit Diagnoses Not on filedocumented in this encounter Additional Health Concerns Assessment Noted Time PHQ-9 Depression Total Score: 1 01/14/20 24 10:00 AM EDT documented as of this encounter Care Teams Chief Service Dispatcher Relationship Specialty Start Date End Date Bharati Soriano MD [address] [place] [address] PCP - General Family Medicine 06/14/18 Vasyl Boles MD [address] [place] [phone] Gastroenterology 06/20/24 Amador Green MD [address] [place] [address] Rheumatology 09/18/24 documented as of this encounter
--- OUTSIDE RECORDS SUMMARY | 2024-09-19 19:13 | XMS_ITS | Encounter Summary ---
Author Organization [employer] Address 75 [facility] 7t [place] [address] Care Team Providers Care Medical Receptionist Name Role Phone Bharati Soriano MD Primary Care Provider +[phone]- [phone] Vasyl Boles MD Unavailable [phone] Amador Green MD Unavailable [phone] Reason for Visit * Reason Onset Date Comments Med Refill 03/31/2024 Encounter Details Date Type Department Care Team (Late st Contact Info) Description 03/31/2024 Telephone [facility] MED[facility] [address] [place], [place] [phone] Bharati Soriano MD [address] [place] [address] Med Refill Social History Tobacco Use Types [...] 5-325 MG tablet To be sent to: [facility]/pharmacy #[id number] [place] [address] - [address] [place] [address] documented in this encounter Plan of Treatment Upcoming Encounters Date Type Department Care Team (Late st Contact Info) Description 12/19/2024 11:00 AM EDT Office Visit [facility] MEDICINE [address] [place] [address] 03/14/2025 1:00 PM EDT Office Visit [facility] ADULT DENTAL [address] [place] [address] Elo Mahoney [address] [place] [address] documented as of this encounter Visit Diagnoses Not on filedocumented in this encounter Additional Health Concerns Assessment Noted Time PHQ-9 Depression Total Score: 1 01/14/20 10:00 AM EDT documented as of this encounter Care Teams Medical Receptionist Relationship Specialty Start Date End Date Greenwood, Bharati, MD [address] [place] [address] PCP - General Family Medicine 06/14/18 Vasyl Boles MD [address] [place] [phone] Gastroenterology 06/20/24 Amador Green MD [address] [place] [address] Rheumatology 09/18/24 documented as of this encounter
--- OUTSIDE RECORDS SUMMARY | 2024-09-19 19:13 | XMS_ITS | Encounter Summary ---
Author Organization [employer] Address [address] [place] [address] 7t [place] [address] Care Team Providers Care Fly Rail Operator Name Role Phone Bharati Soriano MD Primary Care Provider [phone]- [phone] Vasyl Boles MD Unavailable [phone] Amador Green MD Unavailable [phone] Reason for Visit * Reason Comments Med Refill Encounter Details Date Type Department Care Team (Late st Contact Info) Description 11/17/[address] [facility] MEDICINE [address] [place], [place] [phone] Bharati Soriano MD [address] [place] [address] Wheeze Social History Tobacco Use Types Packs/Day [...] Description 12/19/2024 11:00 AM EDT Office Visit [facility] MEDICINE [address] [place] [address] 03/14/2025 1:00 PM EDT Office Visit [facility] ADULT DENTAL [address] [place] [address] Elo Mahoney [address] [place] [address] documented as of this encounter Visit Diagnoses Diagnosis Wheeze Wheezing documented in this encounter Additional Health Concerns Assessment Noted Time PHQ-9 Depression Total Score: 0 10/16/19 23 2:27 PM EDT documented as of this encounter Care Teams Fly Rail Operator Relationship Specialty Start Date End Date Bharati Soriano MD [address] [place] [address] PCP - General Family Medicine 06/14/18 Vasyl Boles MD [address] [place] [phone] Gastroenterology 06/20/24 Amador Green MD [address] [place] [address] Rheumatology 09/18/24 documented as of this encounter
--- OUTSIDE RECORDS SUMMARY | 2024-09-19 19:13 | XMS_ITS | Encounter Summary ---
Author Organization [employer] Address [address] [place] [address] 7t [place] [address] Care Team Providers Care Stitcher Around Name Role Phone Bharati Soriano MD Primary Care Provider +[phone]- [phone] Vasyl Boles MD Unavailable [phone] Amador Green MD Unavailable [phone] Reason for Visit * Reason Onset Date Comments Other 11/03/2022 Encounter Details Date Type Department Care Team (Late st Contact Info) Description 11/03/2022 Telephone [facility] MEDICINE [address] [place], [place] [phone] Bharati Soriano MD [address] [place], [place] [phone] Other Social History Tobacco Use Types Packs/Day [...] EDT Tc from patient returning call back, food writer didn't see any notes. documented in this encounter Plan of Treatment Upcoming Encounters Date Type Department Care Team (Late st Contact Info) Description 12/19/2024 11:00 AM EDT Office Visit [facility] MEDICINE [address] [place] [address] 03/14/2025 1:00 PM EDT Office Visit [facility] ADULT DENTAL [address] [place] [address] DenzelElo [address] [place] [address] documented as of this encounter Visit Diagnoses Not on filedocumented in this encounter Additional Health Concerns Assessment Noted Time PHQ-9 Depression Total Score: 0 10/16/19 23 2:27 PM EDT documented as of this encounter Care Teams Stitcher Around Relationship Specialty Start Date End Date Bharati Soriano MD [address] [place] [address] PCP - General Family Medicine 06/14/18 Vasyl Boles MD [address] [place] [phone] Gastroenterology 06/20/24 Amador Green MD [address] [place] [address] Rheumatology 09/18/24 documented as of this encounter
--- OUTSIDE RECORDS SUMMARY | 2024-09-19 19:13 | XMS_ITS | Encounter Summary ---
Author Organization [facility] Address [address] [place] [address] 7 [place] [address] Care Team Providers Care Red Leader Name Role Phone Bharati Soriano MD Primary Care Provider +1- [phone] Vasyl Boles MD Unavailable [phone] Amador Green MD Unavailable [phone] Encounter Details Date Type Department Care Team (Latest Contact Info) Description 06/29/2018 Abstract [facility] CONVERSIONS Dental, Provider, DDS Social [...] Description 12/19/2024 11:00 AM EDT Office Visit [facility] MEDICINE [address] [place] [address] 03/14/2025 1:00 PM EDT Office Visit [facility] ADULT DENTAL [address] [place], [place] [phone] Denzel Elo [address] [place] [address] documented as of this encounter Visit Diagnoses Not on filedocumented in this encounter Care Teams Red Leader Relationship Specialty Start Date End Date Bharati Soriano MD [address] [place] [address] PCP - General Family Medicine 06/14/18 Vasyl Boles MD [address] [place] [phone] Gastroenterology 06/20/24 Amador Green MD [address] [place] [address] Rheumatology 09/18/24 documented as of this encounter
--- OUTSIDE RECORDS SUMMARY | 2024-09-19 19:13 | XMS_ITS | Encounter Summary ---
Author Organization [employer] Address [address] [place] [address] 7t [place] [address] Care Team Providers Care Operations Chief Name Role Phone Bharati Soriano MD Primary Care Provider [phone]- [phone] Vasyl Boles MD Unavailable [phone] Amador Green MD Unavailable [phone] Reason for Visit * Reason Comments Med Refill Encounter Details Date Type Department Care Team (Late st Contact Info) Description 10/05/2022 Refill [facility] MEDICINE [address] [place] [address] Bharati Soriano MD [address] [place] [address] Wheeze Social History Tobacco Use Types Packs/Day [...] Description 12/19/2024 11:00 AM EDT Office Visit [facility] MEDICINE [address] [place] [address] 03/14/2025 1:00 PM EDT Office Visit [facility] ADULT DENTAL [address] [place] [address] Elo Mahoney [address] [place] [address] documented as of this encounter Visit Diagnoses Diagnosis Wheeze Wheezing documented in this encounter Care Teams Operations Chief Relationship Specialty Start Date End Date Bharati Soriano MD [address] [place] [address] PCP - General Family Medicine 06/14/18 Vasyl Boles MD [address] [place] [phone] Gastroenterology 06/20/24 Amador Green MD [address] [place] [address] Rheumatology 09/18/24 documented as of this encounter
--- OUTSIDE RECORDS SUMMARY | 2024-09-19 19:13 | XMS_ITS | Encounter Summary ---
Author Organization [employer] Address [address] [facility] [address] 7t [place] [address] Care Team Providers Care Net Web Application Developer Name Role Phone Bharati Soriano MD Primary Care Provider [phone]- [phone] Vasyl Boles MD Unavailable [phone] Amador Green MD Unavailable [phone] Encounter Details Date Type Department Care Team (Late st Contact Info) Description 01/04/2024 Orders Only [facility] MEDICINE [address] [place] [address] Hortencia Beard, JÚNIOR [address] [place] [address] Pain Social History Tobacco Use Types Packs/Day [...] Description 12/19/2024 11:00 AM EDT Office Visit [facility] MEDICINE [address] [place] [address] 03/14/2025 1:00 PM EDT Office Visit [facility] ADULT DENTAL [address] [place] [address] Denzel, Elo [address] [place] [address] Scheduled Orders Name Type Priority Associated Diagnoses [...] 11:23 AM EDT) Nordiazepam, GCMS Urine NEGATIVE [facility] Oxazepam, GCMS Urine NEGATIVE [facility] Lorazepam GCMS Urine NEGATIVE [facility] Alprazolam, GCMS Urine NEGATIVE [facility] Alphahydroxytriazolam, GCMS Ur NEGATIVE [facility] Temazepam, GCMS Urine NEGATIVE [facility] Alphahydroxymidazolam,GC MS Ur NEGATIVE [facility] Aminoclonazepam, GCMS Urine NEGATIVE [facility] Flurazepam Metabolite,GCMS Ur NEGATIVE [facility] Benzodiazepines Comments SEE NOTE [facility] Comment:This drug testing is for medical treatment only.Analysis was performed as non-forensic testing andthese results should be used only by healthcareproviders to render diagnosis or treatment, or tomonitor progress of medical conditions.LDT Notes:Confirmation tests were developed and their analyticalperformance characteristics have been determined by[employer]. It has not been cleared or approvedby the FDA. This assay has been validated pursuant tothe CLIA regulations and is used for clinical purposes.Healthcare Providers needing Interpretation assistance,please contact us at [phone] ( )M-F, 8am to 10pm ESTTHIS TEST PERFORMED AT:[email or web address] [address] [phone] DIRECTOR: VAUGHN BAUTISTA MD 01/04/2024 11:2 3 AM EDT 01/04/2024 1:53 PM EDT us Mily Alfredo LOG DECK TENDER LAB URINE ORDERABLES Final Res ult [facility] [address] [place] [address] [phone] documented in this encounter Visit Diagnoses Diagnosis Pain Generalized pain documented in this encounter Additional Health Concerns Assessment Noted Time PHQ-9 Depression Total Score: 2 12/22/19 24 2:00 PM EDT documented as of this encounter Care Teams Net Web Application Developer Relationship Specialty Start Date End Date Bharati Soriano MD [address] [place] [address] PCP - General Family Medicine 06/14/18 Vasyl Boles MD [address] [place] [address] [place] [phone] Gastroenterology 06/20/24 Amador Green MD [address] [place] [address] Rheumatology 09/18/24 documented as of this encounter
--- OUTSIDE RECORDS SUMMARY | 2024-09-19 19:13 | XMS_ITS | Encounter Summary ---
Author Organization [employer] Address [address] [facility] [address] 7t [place] [address] Care Team Providers Care Zigzag Stitcher Name Role Phone Bharati Soriano MD Primary Care Provider +1- [phone] Vasyl Boles MD Unavailable [phone] Amador Green MD Unavailable [phone] Encounter Details Date Type Department Care Team (Late st Contact Info) Description 09/29/2023 Orders Only [facility] WALK-IN CENTER [address] [place], [place] [phone] Bryon Fuller MD 230 [place], [place] [phone] Social History Tobacco Use Types Packs/Day Years [...] Description 12/19/2024 11:00 AM EDT Office Visit [facility] MEDICINE [address] [place] [address] 03/14/2025 1:00 PM EDT Office Visit [facility] ADULT DENTAL [address] [place] [address] Denzel, Elo [address] [place] [address] documented as of this encounter Visit Diagnoses Not on filedocumented in this encounter Additional Health Concerns Assessment Noted Time PHQ-9 Depression Total Score: 0 10/16/19 23 2:27 PM EDT documented as of this encounter Care Teams Zigzag Stitcher Relationship Specialty Start Date End Date Bharati Soriano MD [address] [place] [address] PCP - General Family Medicine 06/14/18 Vasyl Boles MD [address] [place] [address] Gastroenterology 06/20/24 Amador Green MD [address] [place] [address] Rheumatology 09/18/24 documented as of this encounter
--- OUTSIDE RECORDS SUMMARY | 2024-09-19 19:13 | XMS_ITS | Encounter Summary ---
Author Organization [employer] Address 75 [facility] 7t [place] [address] Care Team Providers Care Rotary Machine Operator Name Role Phone Bharati Soriano MD Primary Care Provider [phone]- [phone] Vasyl Boles MD Unavailable [phone] Amador Green MD Unavailable [phone] Reason for Visit * Reason Onset Date Comments Med Refill 06/01/2023 Encounter Details Date Type Department Care Team (Late st Contact Info) Description 06/01/2023 Telephone [facility] MEDICINE [address] [place], [place] [phone] Bharati Soriano MD [address] [place] [address] Med Refill Social History Tobacco Use Types [...] 11:00 AM EDT Office Visit [facility] MEDICINE [address] [place] [address] 03/14/2025 1:00 PM EDT Office Visit [facility] ADULT DENTAL [address] [place] [address] Elo Mahoney [address] [place] [address] documented as of this encounter Visit Diagnoses Not on filedocumented in this encounter Additional Health Concerns Assessment Noted Time PHQ-9 Depression Total Score: 0 10/16/19 23 2:27 PM EDT documented as of this encounter Care Teams Rotary Machine Operator Relationship Specialty Start Date End Date Bharati Soriano MD [address] [place] [address] PCP - General Family Medicine 06/14/18 Vasyl Boles MD [address] [place] [address] [place] [phone] Gastroenterology 06/20/24 Amador Green MD [address] [place] [address] Rheumatology 09/18/24 documented as of this encounter
--- OUTSIDE RECORDS SUMMARY | 2024-09-19 19:13 | XMS_ITS | Encounter Summary ---
Author Organization [employer] Address [address] [facility] 7t [place] [address] Care Team Providers Care Member Of The Legislative Council Name Role Phone Bharati Soriano MD Primary Care Provider [phone]- [phone] Vasyl Boles MD Unavailable [phone] Amador Green MD Unavailable [phone] Reason for Visit * Reason Comments Med Change Request Encounter Details Date Type Department Care Team (Late st Contact Info) Description 09/08/2022 Refill [facility] MEDICINE [address] [place] [address] Bharati Soriano MD 230 [place] [address] Social History Tobacco Use Types Packs/Day Years [...] Description 12/19/2024 11:00 AM EDT Office Visit [facility] MEDICINE [address] [place] [address] 03/14/2025 1:00 PM EDT Office Visit [facility] ADULT DENTAL [address] [place] [address] Elo Mahoney [address] [place] [address] documented as of this encounter Visit Diagnoses Not on filedocumented in this encounter Care Teams Member Of The Legislative Council Relationship Specialty Start Date End Date Bharati Soriano MD [address] [place] [address] PCP - General Family Medicine 06/14/18 Vasyl Boles MD [address] [place] [phone] Gastroenterology 06/20/24 [place] [address] [place] [address] Rheumatology 09/18/24 documented as of this encounter
--- OUTSIDE RECORDS SUMMARY | 2024-09-19 19:13 | XMS_ITS | Encounter Summary ---
Author Organization [employer] Address [address] [facility] 7t [place] [address] Care Team Providers Care Supervisor Carpenters Name Role Phone Bharati Soriano MD Primary Care Provider [phone]- [phone] Vasyl Boles MD Unavailable [phone] Amador Green MD Unavailable [phone] Reason for Visit * Reason Onset Date Comments Call Back Request 10/25/2023 Encounter Details Date Type Department Care Team (Late st Contact Info) Description 10/25/2023 Telephone [facility] MEDICINE [address] [place], [place] [phone] Bharati Soriano MD [address] [place] [address] Call Back Request Social History Tobacco Use [...] of every month. Please contact pt at [phone] documented in this encounter Plan of Treatment Upcoming Encounters Date Type Department Care Team (Late st Contact Info) Description 12/19/2024 11:00 AM EDT Office Visit [facility] MEDICINE [address] [place] [address] 03/14/2025 1:00 PM EDT Office Visit [facility] ADULT DENTAL [address] [place] [address] Elo Mahoney [address] [place] [address] documented as of this encounter Visit Diagnoses Not on filedocumented in this encounter Additional Health Concerns Assessment Noted Time PHQ-9 Depression Total Score: 0 10/16/19 23 2:27 PM EDT documented as of this encounter Care Teams Supervisor Carpenters Relationship Specialty Start Date End Date Bharati Soriano MD [address] [place] [address] PCP - General Family Medicine 06/14/18 Vasyl Boles MD [address] [place] [phone] Gastroenterology 06/20/24 Amador Green MD [address] [place] [address] Rheumatology 09/18/24 documented as of this encounter
--- OUTSIDE RECORDS SUMMARY | 2024-09-19 19:13 | XMS_ITS | Encounter Summary ---
Author Organization [facility] Address [address] [place] [address] 7 [place] [address] Care Team Providers Care Conference Specialist Name Role Phone Bharati Soriano MD Primary Care Provider +1- [phone] Vasyl Boles MD Unavailable [phone] Amador Green MD Unavailable [phone] Encounter Details Date Type Department Care Team (Late st Contact Info) Description 08/11/2022 Abstract [facility] MEDICINE [address] [place] [address] Bharati Soriano MD [address] [place], [place] [phone] Social History Tobacco Use Types Packs/Day Years [...] Description 12/19/2024 11:00 AM EDT Office Visit [facility] MEDICINE [address] [place] [phone] 03/14/2025 1:00 PM EDT Office Visit [facility] ADULT DENTAL [address] [place] [phone] Elo Mahoney 230 [place] [address] documented as of this encounter Procedures Procedure Name Priority Date/Time Associated Diagnosis Comments PAP SMEAR Routine 03/14/2015 12:00 AM EDT documented in this encounter Results * Pap Smear (03/14/2015 12:00 AM EDT) Swab us Historical Provider LAB CYTOLOGY ORDERABLES F inal Result IMAGING documented in this encounter Visit Diagnoses Not on filedocumented in this encounter Care Teams Conference Specialist Relationship Specialty Start Date End Date Bharati Soriano MD [address] [place] [address] PCP - General Family Medicine 06/14/18 Vasyl Boles MD [address] [place] [address] Gastroenterology 06/20/24 Amador Green MD [address] [place] [address] Rheumatology 09/18/24 documented as of this encounter
--- OUTSIDE RECORDS SUMMARY | 2024-09-19 19:13 | XMS_ITS | Encounter Summary ---
Author Organization [employer] Address [address] [facility] 7t [place] [address] Care Team Providers Care Daily Release And Dupe Printer Name Role Phone Bharati Soriano MD Primary Care Provider +1- [phone] Vasyl Boles MD Unavailable [phone] Amador Green MD Unavailable [phone] Reason for Visit * Reason Onset Date Comments Med Refill 05/03/2023 Encounter Details Date Type Department Care Team (Late st Contact Info) Description 05/03/[address] [facility] MEDICINE [address] [place], [place] [phone] Bharati Soriano MD [address] [place] [address] Med Refill Social History Tobacco Use Types [...] [facility] MEDICINE [address] [place] [address] 03/14/2025 1:00 PM EDT Office Visit [facility] ADULT DENTAL [address] [place] [address] DenzelElo [address] [place] [address] documented as of this encounter Visit Diagnoses Not on filedocumented in this encounter Additional Health Concerns Assessment Noted Time PHQ-9 Depression Total Score: 0 10/16/19 23 2:27 PM EDT documented as of this encounter Care Teams Daily Release And Dupe Printer Relationship Specialty Start Date End Date Bharati Soriano MD [address] [place] [address] PCP - General Family Medicine 06/14/18 Vasyl Boles MD [address] [place] [address] [place] [phone] Gastroenterology 06/20/24 Amador Green MD [address] [place] [address] Rheumatology 09/18/24 documented as of this encounter
--- OUTSIDE RECORDS SUMMARY | 2024-09-19 19:13 | XMS_ITS | Encounter Summary ---
Author Organization [employer] Address [address] 7t [place] [address] Care Team Providers Care Devops Developer Name Role Phone Bharati Soriano MD Primary Care Provider [phone]- [phone] Vasyl Boles MD Unavailable [phone] Amador Green MD Unavailable [phone] Reason for Visit * Reason Onset Date Comments Med Refill 02/01/2024 Encounter Details Date Type Department Care Team (Late st Contact Info) Description 02/01/2024 Telephone [facility] [address] [place], [place] [phone] Bharati Soriano MD 230 [place] [address] Med Refill Social History Tobacco Use Types [...] 5-325 MG tablet To be sent to: [facility]/pharmacy #[address] [place] [address] - [address] [place] [address] documented in this encounter Plan of Treatment Upcoming Encounters Date Type Department Care Team (Late st Contact Info) Description 12/19/2024 11:00 AM EDT Office Visit [facility] 230 [place] [address] 03/14/2025 1:00 PM EDT Office Visit [facility] [address] [place] [address] Elo Mahoney [address] [place] [address] documented as of this encounter Visit Diagnoses Not on filedocumented in this encounter Additional Health Concerns Assessment Noted Time PHQ-9 Depression Total Score: 1 01/14/20 24 10:00 AM EDT documented as of this encounter Care Teams Devops Developer Relationship Specialty Start Date End Date Bharati Soriano MD 230 [place] [address] PCP - General Family Medicine 06/14/18 Vasyl Boles MD [address] [place] [address] [address] [place] [phone] Gastroenterology 06/20/24 Amador Green MD [address] [place] [address] Rheumatology 09/18/24 documented as of this encounter
--- OUTSIDE RECORDS SUMMARY | 2024-09-19 19:13 | XMS_ITS | Encounter Summary ---
Author Organization [employer] Address [address] [facility] 7t [place] [address] Care Team Providers Care Shop Lead Name Role Phone Bharati Soriano MD Primary Care Provider [phone] Vasyl Boles MD Unavailable [phone] Amador Green MD Unavailable [phone] Encounter Details Date Type Department Care Team (Late st Contact Info) Description 05/30/[address] [facility] MED[facility]INE 230 [place], [place] [phone] Bharati Soriano MD 230 [place], [place] [phone] Social History Tobacco Use Types Packs/Day Years [...] Description 12/19/2024 11:00 AM EDT Office Visit [facility] 230 [place] [address] 03/14/2025 1:00 PM EDT Office Visit [facility] ADULT DENTAL [address] [place] [address] DenzelAlElo 230 [place] [address] documented as of this encounter Visit Diagnoses Not on filedocumented in this encounter Additional Health Concerns Assessment Noted Time PHQ-9 Depression Total Score: 1 01/14/20 24 10:00 AM EDT documented as of this encounter Care Teams Shop Lead Relationship Specialty Start Date End Date Bharati Soriano MD 230 [place] [address] PCP - General Family Medicine 06/14/18 Vasyl Boles MD [address] [place] [phone] Gastroenterology 06/20/24 Amador Green MD [address] [place] [address] Rheumatology 09/18/24 documented as of this encounter
--- OUTSIDE RECORDS SUMMARY | 2024-09-19 19:13 | XMS_ITS | Encounter Summary ---
Author Organization [employer] Address 75 [facility] 7t [place] [address] Care Team Providers Care Senior Software Qa Engineer Name Role Phone Bharati Soriano MD Primary Care Provider [phone] Vasyl Boles MD Unavailable [phone] Amador Green MD Unavailable [phone] Encounter Details Date Type Department Care Team (Late st Contact Info) Description 08/01/2024 Orders Only [facility] MED[facility]INE 230 [place], [place] [phone] Rosi Vergara MD 230 [place], [place] [phone] Primary hypertension; Chronic renal impairment, stage 2 [...] Description 12/19/2024 11:00 AM EDT Office Visit [facility] MED[facility] 230 [place] [address] 03/14/2025 1:00 PM EDT Office Visit [facility] ADULT DENTAL 230 [place] [address] Denzel, Elo [address] [place] [address] documented as of this encounter Visit Diagnoses Diagnosis Primary hypertension Unspecified essential hypertension Chronic renal impairment, stage 2 (mild) documented in this encounter Additional Health Concerns Assessment Noted Time PHQ-9 Depression Total Score: 1 01/14/20 24 10:00 AM EDT documented as of this encounter Care Teams Senior Software Qa Engineer Relationship Specialty Start Date End Date Bharati Soriano MD [address] [place] [address] PCP - General Family Medicine 06/14/18 Vasyl Boles MD [address] [place] [phone] Gastroenterology 06/20/24 Amador Green MD [address] [place] [address] Rheumatology 09/18/24 documented as of this encounter
--- OUTSIDE RECORDS SUMMARY | 2024-09-19 19:13 | XMS_ITS | Encounter Summary ---
Author Organization [employer] Address [address] [facility] 7t [place] [address] Care Team Providers Care Natural Resource Economist Name Role Phone Bharati Soriano MD Primary Care Provider [phone]- [phone] Vasyl Boles MD Unavailable [phone] Amador Green MD Unavailable [phone] Encounter Details Date Type Department Care Team (Late st Contact Info) Description 09/29/2023 Abstract [facility] [address] [place] [address] Bharati Soriano MD 230 [place], [place] [phone] Social History Tobacco Use Types Packs/Day Years [...] Description 12/19/2024 11:00 AM EDT Office Visit [facility] MED[facility] 230 [place] [address] 03/14/2025 1:00 PM EDT Office Visit [facility] ADULT DENTAL [address] [place] [address] Al Mahoneyaris [address] [place] [address] documented as of this encounter Procedures Procedure [...] documented as of this encounter Care Teams Natural Resource Economist Relationship Specialty Start Date End Date Bharati Soriano MD 230 [place] [address] PCP - General Family Medicine 06/14/18 Vasyl Boles MD [address] [place] [address] [address] [place] [address] Gastroenterology 06/20/24 Amador Green MD [address] [place] [address] Rheumatology 09/18/24 documented as of this encounter
--- OUTSIDE RECORDS SUMMARY | 2024-09-19 19:13 | XMS_ITS | Clinical Summary ---
Author Organization [facility] Address [address] [place] [address] Care Team Providers Care Drawer In Plain Loom Name Role Phone Bharati Soriano MD Primary [...] Recently Relevant to Health Maintenance Care Teams Drawer In Plain Loom Relationship Specialty Start Date End Date Bharati Soriano MD PCP - General 06/24/20
--- OUTSIDE RECORDS SUMMARY | 2024-09-19 19:13 | XMS_ITS | Encounter Summary ---
Author Organization [employer] Address [address] [facility] 7t [place] [address] Care Team Providers Care Adjunct Lecturer Name Role Phone Bharati Soriano MD Primary Care Provider [phone] Vasyl Boles MD Unavailable [phone] Amador Green MD Unavailable [phone] Reason for Visit * Reason Comments Med Refill Encounter Details Date Type Department Care Team (Late st Contact Info) Description 05/10/2024 Refill [facility] MEDICINE 230 [place] [address] Bharati Soriano MD 230 [place] [address] Dyslipidemia; Other osteoporosis without current pathological fracture; [...] Description 12/19/2024 11:00 AM EDT Office Visit [facility] MEDICINE [address] [place] [address] 03/14/2025 1:00 PM EDT Office Visit [facility] ADULT DENTAL [address] [place] [address] Al Mahoneyaris 230 [place] [address] documented as of this encounter Visit Diagnoses Diagnosis Dyslipidemia Other and unspecified hyperlipidemia Other osteoporosis without current pathological fracture Mild intermittent asthma, unspecified whether complicated documented in this encounter Additional Health Concerns Assessment Noted Time PHQ-9 Depression Total Score: 1 01/14/20 24 10:00 AM EDT documented as of this encounter Care Teams Adjunct Lecturer Relationship Specialty Start Date End Date Bharati Soriano MD [address] [place] [address] PCP - General Family Medicine 06/14/18 Vasyl Boles MD [address] [place] [address] [place] [address] Gastroenterology 06/20/24 Amador Green MD [address] [place] [address] Rheumatology 09/18/24 documented as of this encounter
--- OUTSIDE RECORDS SUMMARY | 2024-09-19 19:13 | XMS_ITS | Patient Health Record ---
Author Organization [facility] Address [address] [place] [address] Care Team Providers Care Commissioned Security Officer Name Role Phone Bharati Soriano MD Primary Care Provider Vasyl Simon Jr Unavailable [phone] Allergies Allergen (clinical drug ingredient) Drug/Non Drug Allergy documented on EMR Reaction Allergy Type Onset Date Status Simvastatin Unknown Drug Allergy Activ e Metoprolol Succinate Unknown Drug Allergy Active lisinopril [...] 100 MG TAKE 1 TABLET BY [facility] EVERY DAY AT BEDTIME Oral [...] Problem Status W/U Status Risk Notes Problem 077176664 Colon cancer screening (Z12.11) Active confirmed Problem 702306245 Radiation procti tis (K62.7) Active confirmed Problem 676598252 Gastroesophageal reflux disease without esophagitis (K21.9) Active confirmed Problem History of malignant neoplasm of rectum (847478763) 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) Active confirmed Problem 44818785 Incontinence of feces, unspecified fecal incontinence type (R15.9) Active confirmed Encounters Encounter Location Date Provider Diagnosis [facility] [address] [facility] [address] [place] [address] 09/20/2023 Vasyl Boles Jr Plan Of Treatment Future Test Test Name Order Date COLONOSCOPY 07/14/2018 COLONOSCOPY 12/25/2021 Insurance Providers Payer Name Payer Address Payer Phone Subscriber Number Group Number Insured Name Patient Relationship to Insured Coverage Start Date Coverage End Date MEDICARE OF [place] [address] SILVIO BOTELLO [id number] PATT RENDON Self - patient is the insured MEDICAID OF [facility] [address] [place] [phone] [id number] JULIETA PATT Self - patient is the insured Medical (General) History Medical History History ICD Code hypertension 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
--- OUTSIDE RECORDS SUMMARY | 2024-09-19 19:13 | XMS_ITS | Encounter Summary ---
Author Organization [employer] Address [address] [facility] 7t [place] [address] Care Team Providers Care Forestry Supervisor Name Role Phone Bharati Soriano MD Primary Care Provider [phone] Vasyl Boles MD Unavailable [phone] Amador Green MD Unavailable [phone] Reason for Visit * Reason Onset Date Comments requesting a call back 09/07/2022 Encounter Details Date Type Department Care Team (Late st Contact Info) Description 09/07/2022 Telephone [facility] MEDICINE 230 [place], [place] [phone] Bharati Soriano MD 230 [place] [address] requesting a call back Social History Tobacco [...] Description 12/19/2024 11:00 AM EDT Office Visit [facility] MEDICINE 230 [place] [address] 03/14/2025 1:00 PM EDT Office Visit [facility] ADULT DENTAL 230 [place] [address] Elo Mahoney 230 [place] [address] documented as of this encounter Visit Diagnoses Not on filedocumented in this encounter Care Teams Forestry Supervisor Relationship Specialty Start Date End Date Bharati Soriano MD [address] [place] [address] PCP - General Family Medicine 06/14/18 Vasyl Boles MD [address] [place] [address] Gastroenterology 06/20/24 Amador Green MD [address] [place] [address] Rheumatology 09/18/24 documented as of this encounter
--- OUTSIDE RECORDS SUMMARY | 2024-09-19 19:13 | XMS_ITS | Encounter Summary ---
Author Organization [employer] Address [address] [facility] 7t [place] [address] Care Team Providers Care Casting Machine Adjuster Name Role Phone Bharati Soriano MD Primary Care Provider [phone] Vasyl Boles MD Unavailable [phone] Amador Green MD Unavailable [phone] Reason for Visit * Reason Onset Date Comments Med Refill 05/03/2024 Encounter Details Date Type Department Care Team (Late st Contact Info) Description 05/03/2024 Telephone [facility] MEDICINE 230 [place], [place] [phone] Bharati Soriano MD 230 [place] [address] Med Refill Social History Tobacco Use Types [...] 5-325 MG tablet To be sent to: [facility]/pharmacy #[id number] [place] [address] - [address] [place] [address] documented in this encounter Plan of Treatment Upcoming Encounters Date Type Department Care Team (Late st Contact Info) Description 12/19/2024 11:00 AM EDT Office Visit [facility] MEDICINE 230 [place] [address] 03/14/2025 1:00 PM EDT Office Visit [facility] ADULT DENTAL [address] [place], [place] [phone] Elo Mahoney 230 [place] [address] documented as of this encounter Visit Diagnoses Not on filedocumented in this encounter Additional Health Concerns Assessment Noted Time PHQ-9 Depression Total Score: 1 01/14/20 10:00 AM EDT documented as of this encounter Care Teams Casting Machine Adjuster Relationship Specialty Start Date End Date [place], Bharati, MD 230 [place] [address] PCP - General Family Medicine 06/14/18 Vasyl Boles MD [address] [place] [phone] Gastroenterology 06/20/24 Amador Green MD [address] [place] [address] Rheumatology 09/18/24 documented as of this encounter
--- OUTSIDE RECORDS SUMMARY | 2024-09-19 19:13 | XMS_ITS | Encounter Summary ---
Author Organization [employer] Address [address] [facility] 7t [place] [address] Care Team Providers Care Administrative Analyst Name Role Phone Bharati Soriano MD Primary Care Provider [phone]- [phone] Vasyl Boles MD Unavailable [phone] Amador Green MD Unavailable [phone] Reason for Visit * Reason Comments Med Refill Encounter Details Date Type Department Care Team (Late st Contact Info) Description 06/18/2023 Refill [facility] MEDICINE 230 [place], [place] [phone] Bharati Soriano MD 230 [place] [address] Dyslipidemia; Acquired hypothyroidism Social History Tobacco Use [...] Description 12/19/2024 11:00 AM EDT Office Visit [facility] MEDICINE 230 [place] [address] 03/14/2025 1:00 PM EDT Office Visit [facility] ADULT DENTAL [address] [place] [address] Denzel, Elo [address] [place] [address] documented as of this encounter Visit Diagnoses Diagnosis Dyslipidemia Other and unspecified hyperlipidemia Acquired hypothyroidism Unspecified hypothyroidism documented in this encounter Additional Health Concerns Assessment Noted Time PHQ-9 Depression Total Score: 0 10/16/19 23 2:27 PM EDT documented as of this encounter Care Teams Administrative Analyst Relationship Specialty Start Date End Date Bharati Soriano MD 230 [place] [address] PCP - General Family Medicine 06/14/18 Vasyl Boles MD [address] [place] [address] Gastroenterology 06/20/24 Amador Green MD [address] [place] [address] Rheumatology 09/18/24 documented as of this encounter
--- OUTSIDE RECORDS SUMMARY | 2024-09-19 19:13 | XMS_ITS | Encounter Summary ---
Author Organization [employer] Address [address] [place] [address] 7t [place] [address] Care Team Providers Care Administrative Underwriter Name Role Phone Bharati Soriano MD Primary Care Provider [phone]- [phone] Vasyl Boles MD Unavailable [phone] Amador Green MD Unavailable [phone] Reason for Visit * Reason Onset Date Comments Medication Question 06/12/2022 Encounter Details Date Type Department Care Team (Late st Contact Info) Description 06/12/2022 Telephone [facility] MEDICINE [address] [place], [place] [phone] Bharati Soriano MD 230 [place], [place] [phone] Medication Question Social History Tobacco Use Types [...] pharmacy [facility] on [address] . Pt would like to know if she will be able to get meds before the long weekend ? documented in this encounter Plan of Treatment Upcoming Encounters Date Type Department Care Team (Late st Contact Info) Description 12/19/2024 11:00 AM EDT Office Visit [facility] MEDICINE [address] [place] [address] 03/14/2025 1:00 PM EDT Office Visit [facility] ADULT DENTAL [address] [place] [address] Denzel, Elo [address] [place] [address] documented as of this encounter Visit Diagnoses Diagnosis Pain Generalized pain documented in this encounter Care Teams Administrative Underwriter Relationship Specialty Start Date End Date Bharati Soriano MD [address] [place] [address] PCP - General Family Medicine 06/14/18 Vasyl Boles MD [address] [place] [address] Gastroenterology 06/20/24 Amador Green MD [address] [place] [address] Rheumatology 09/18/24 documented as of this encounter
--- OUTSIDE RECORDS SUMMARY | 2024-09-19 19:13 | XMS_ITS | Encounter Summary ---
Author Organization [employer] Address 75 [facility] 7t [place] [address] Care Team Providers Care Automotive Customer Experience Advisor Name Role Phone Bharati Soriano MD Primary Care Provider [phone]- [phone] Vasyl Boles MD Unavailable [phone] Amador Green MD Unavailable [phone] Encounter Details Date Type Department Care Team (Late st Contact Info) Description 09/19/2024 11:00 AM EDT Office Visit [facility] MEDICINE [address] [place] [address] Mily Alfredo, BRENDON [address] [place], [place] [phone] Chronic low back pain, unspecified back pain laterality, unspecified whether sciatica present (Primary Dx); tank terminal 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 female w/ PMH lumbar radiculopathy, hypertension, hypothyroid, lupus, rectal carcinoma s/p radiation and chemo in 2008, chronic Hep B, anxiety, and osteoporosis, who presents to the office for - Chronic Pain [facility] Group visits. Initial Group visit: 07/06/23 Group Topic: Art Therapy Chronic Pain History: Associated Diagnosis: lumbar radiculopathy, SI joint pain, lupus, chronic low back pain Current pharm tx: Medication: oxycodone-APAP 5-325mg Q6H PRN Non-pharm tx: acupuncture and physical therapy have not been helpful in the past. Massage has been beneficial. Specialists: reports receiving steroid injections [id number] (lumbar/SI) Functional Goals: would like to be [...] normal. Problem List Items Addressed This Visit Other Chronic low back pain - Primary Overview Follows with Chronic Pain Clinic.Per last notes: Good engagement and participation with Group Medical Visit model Encouraged multifactorial approach to pain control including pharm and non-pharm modalities Followup every 3 months with pill count and utox prescribed lidocaine (Lidoderm) 5 % patch 07/12/24 Current Assessment & Plan Pill count as expected, utox positive BZO (however previous false positive. Confirmatory sent to lab) Relevant Orders POCT MADHU-14 Urine Drug Screen (Completed) POCT MADHU-14 Urine Drug Screen (Completed) Drug Monitoring, Benzodiazepines, Quantitative, Urine tank terminal gauger (current) use of opiate analgesic Overview Medication: Percocet 5-325mg Q6H PRN Indication: lumbar radiculopathy Last CHIEF VENDOR QUALITY Agreement: 07/11/24 Current Assessment & Plan Timeline: - 09/19/24: Group - pill count as expected. Utox positive BZO, confirmatory testing sent out Relevant Orders POCT MADHU-14 Urine Drug Screen (Completed) POCT MADHU-14 Urine Drug Screen (Completed) Drug Monitoring, Benzodiazepines, Quantitative, Urine Follow up: PCP as scheduled, sooner as needed. May need sooner f/up pending results of confirmatorytesting. * Jocelyn Randall RN - 09/19/2024 11:00 AM EDT .CHIEF VENDOR QUALITY lithographic press operator apprentice: PDMP reviewed today. Last fill date: 08/31/24 (Percocet 5-325 qid) count was (36), anticipated (7) to be remaining. .UTOX completed. Positive for (BZO, OXY, THC), Negative for AMP, BAR, BUP, JAXON, FTY, MDMA, MET, MOP, MTD, PCP, TCA. UTOX NOT as expected. Sending out to the lab for BZO confirmation. (Pos BZO 07/11/24, lab confirmation was negative). documented in this encounter Miscellaneous Notes * Assessment & Plan Note - BRENDON Fleming - 09/19/2024 2:07 PM EDTAssociated Problem(s): FDC (current) use of opiate analgesic Timeline: - 09/19/24: Group - pill count as expected. Utox positive BZO, confirmatory testing sent out * Assessment & Plan Note - BRENDON Fleming - 09/19/2024 2:07 PM EDTAssociated Problem(s): Chronic low back pain Pill count as expected, utox positive BZO (however previous false positive. 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 Chronic low back pain, unspecified back pain laterality, unspecified whether sciatica present Ordered: 09/19/2024 documented as of this encounter Procedures Procedure Name Priority Date/Time Associated Diagnosis Comments POCT MADHU-14 URINE DRUG SCREEN Routine 09/19/2024 11:42 AM EDT FDC (current) use of opiate analgesic Chronic low back pain, unspecified back pain laterality, unspecified whether sciatica present POCT MADHU-14 URINE DRUG SCREEN Routine 09/19/2024 11:40 AM EDT FDC (current) use of opiate analgesic Chronic low back pain, unspecified back pain laterality, unspecified whether sciatica present documented in this encounter Results * (ABNORMAL) POCT MADHU-14 Urine Drug Screen (09/19/2024 11:42 AM EDT) THC Positive Benzodiazepines Screen, Urine Positive Oxycodone Screen, Urine Positive Urine Urine specimen obtained by clean catch procedure / Unknown 09/19/2024 11:42 AM EDT Narrative Jocelyn Randall RN - 09/19/2024 11:42 AM EDT .UTOX cup Lot#[id number] Exp. 01/31/26 Internal Pass Control Mily Alfredo [facility] POINT OF CARE TEST ENTER/EDIT ORDERABLES Final Result * (ABNORMAL) POCT MADHU-14 Urine Drug Screen (09/19/2024 11:40 AM EDT) Urine Urine specimen obtained by clean catch procedure / Unknown 09/19/2024 11:40 AM EDT Mily Alfredo [facility] POINT OF CARE TEST ENTER/EDIT ORDERABLES Final Result documented in this encounter Visit Diagnoses Diagnosis Chronic low back pain, unspecified back pain laterality, unspecified whether sciatica present- Primary FDC (current) use of opiate analgesic documented in this encounter Additional Health Concerns Assessment Noted Time PHQ-9 Depression Total Score: 1 01/14/20 24 10:00 AM EDT documented as of this encounter Care Teams Automotive Customer Experience Advisor Relationship Specialty Start Date End Date Bharati Soriano MD [address] [place] [address] PCP - General Family Medicine 06/14/18 Vasyl Boles MD [address] [place] [phone] Gastroenterology 06/20/24 Amador Green MD [facility] [place] [address] Rheumatology 09/18/24 documented as of this encounter
--- OUTSIDE RECORDS SUMMARY | 2024-09-19 19:13 | XMS_ITS | Encounter Summary ---
Author Organization [facility] Address [address] [place] [address] 7 [place] [address] Care Team Providers Care Histology Tech Name Role Phone Bharati Soriano MD Primary Care Provider +1- [phone] Vasyl Boles MD Unavailable [phone] Amador Green MD Unavailable [phone] Encounter Details Date Type Department Care Team (Latest Contact Info) Description 03/26/2021 Abstract [facility] CONVERSIONS Dental, Provider, DDS Social History [...] Description 12/19/2024 11:00 AM EDT Office Visit [facility] MEDICINE [address] [place] [address] 03/14/2025 1:00 PM EDT Office Visit [facility] ADULT DENTAL [address] [place] [address] Denzel Elo 230 [place] [address] documented as of this encounter Visit Diagnoses Not on filedocumented in this encounter Care Teams Histology Tech Relationship Specialty Start Date End Date Bharati Soriano MD [address] [place] [address] PCP - General Family Medicine 06/14/18 aVsyl Boles MD [address] [place] [phone] Gastroenterology 06/20/24 Amador Green MD [address] [place] [address] Rheumatology 09/18/24 documented as of this encounter
--- OUTSIDE RECORDS SUMMARY | 2024-09-19 19:13 | XMS_ITS | Encounter Summary ---
Author Organization [facility] Address [address] [place] [address] 7t [place] [address] Care Team Providers Care Sprue Knocker Name Role Phone Bharati Soriano MD Primary Care Provider +1- [phone] Vasyl Boles MD Unavailable [phone] Amador Green MD Unavailable [phone] Encounter Details Date Type Department Care Team (Late Contact Info) Description 10/12/2022 Abstract [facility] MEDICINE [address] [place] [address] Bharati Soriano MD 230 [place], [place] [phone] Social History Tobacco Use Types Packs/Day Years [...] Visit [facility] MEDICINE [address] [place] [address] 03/14/2025 1:00 PM EDT Office Visit [facility] ADULT DENTAL [address] [place] [address] Elo Mahoney 230 [place] [address] documented as of this encounter Visit Diagnoses Not on filedocumented in this encounter Care Teams Sprue Knocker Relationship Specialty Start Date End Date Bharati Soriano MD 230 [place] [address] PCP - General Family Medicine 06/14/18 Vasyl Boles MD [address] [place] [phone] Gastroenterology 06/20/24 Amador Green MD [address] [place] [address] Rheumatology 09/18/24 documented as of this encounter
--- OUTSIDE RECORDS SUMMARY | 2024-09-19 19:13 | XMS_ITS ---
Demographics Address [address] [facility] [address] [place] [address] Mobile Preferred Language en Marital Status Unknown Voodoo Affiliation Unknown Race White Ethnic Group or Author Organization [facility] Address [address] [place] [address] Care Team Providers Care Wheel Aligner Name Role Phone Bharati Soriano MD Primary Care Provider Becca vailable Ramana Bates, Vasyl Unavailable REASON FOR VISIT script for diapers Encounters Encounter Location Date Provider Diagnosis [facility] [address] [place] [address] 09/20/2023 Vasyl Boles Jr Plan Of Treatment No Information Progress Notes * MICHAEL RENDONADDOB:[birth year] (67 yo F)Acc No.[id number]:09/20/2023 Patient:?PATT RENDON :1955???Age:67 Y???Sex:Female Address:[address] [place] [address], [place], [address] * true * Date:? Generated for Printi junito/Fide/eTransmitting on:?09/19/2024 07:12 PM EDT
--- OUTSIDE RECORDS SUMMARY | 2024-09-19 19:13 | XMS_ITS | Encounter Summary ---
Author Organization [facility] Address [address] [place] [address] [address] [address] Care Team Providers Care Ocean Freight Forwarder Name Role Phone Bharati Soriano MD Primary Care Provider +[phone]- [phone] Vasyl Boles MD Unavailable [phone] Amador Green MD Unavailable [phone] Reason for Referral * Consultation (Routine) - Closed Specialty Diagnoses / Procedures Referred By Enrrique tineo Referred To Contact Physical Therapy Diagnoses Chronic low back pain, unspecified back pain laterality, unspecified whether sciatica present Bharati Soriano MD [address] [place] [address] Phone: tel: fax: [facility] / , [address] Phone: tel: fax: Referral ID Status Reason Start Date Expiration Date V isits Requested Visits Authorized [id number] Closed Specialty Services Required 10/15/2023 10/14/2024 1 1 Encounter Details Date Type Department Care Team (Late st Contact Info) Description 10/15/2023 Orders Only [facility] MEDICINE [address] [place] [address] Bharati Soriano MD [address] [place], [place] [phone] Chronic low back pain, unspecified back pain [...] Description 12/19/2024 11:00 AM EDT Office Visit [facility] MEDICINE 230 [place] [address] 03/14/2025 1:00 PM EDT Office Visit [facility] ADULT DENTAL 230 [place] [address] Elo Mahoney 230 [place] [address] Scheduled Referrals Name Type Priority Associated Diagnoses [...] documented as of this encounter Care Teams Ocean Freight Forwarder Relationship Specialty Start Date End Date Bharati Soriano MD [address] [place] [address] PCP - General Family Medicine 06/14/18 Vasyl Boles MD [address] [place] [address] Gastroenterology 06/20/24 Amador Green MD [address] [place] [address] Rheumatology 09/18/24 documented as of this encounter
--- OUTSIDE RECORDS SUMMARY | 2024-09-19 19:13 | XMS_ITS | Encounter Summary ---
Author Organization [employer] [facility] Address [address] [facility] 7t [place] [address] Care Team Providers Care Vessel Builder Name Role Phone Bharati Soriano MD Primary Care Provider [phone]- [phone] Vasyl Boles MD Unavailable [phone] Amador Green MD Unavailable [phone] Reason for Visit * Reason Comments Med Refill Encounter Details Date Type Department Care Team (Late st Contact Info) Description 07/02/2023 Refill [facility] MEDICINE 230 [place], [place] [phone] Bharati Soriano MD 230 [place] [address] Social History Tobacco Use Types Packs/Day Years [...] Description 12/19/2024 11:00 AM EDT Office Visit [facility] MEDICINE 230 [place] [address] 03/14/2025 1:00 PM EDT Office Visit [facility] ADULT DENTAL 230 [place] [address] Denzel, Elo 230 [place] [address] documented as of this encounter Visit Diagnoses Not on filedocumented in this encounter Additional Health Concerns Assessment Noted Time PHQ-9 Depression Total Score: 0 10/16/19 23 2:27 PM EDT documented as of this encounter Care Teams Vessel Builder Relationship Specialty Start Date End Date Bharati Soriano MD 230 [place] [address] PCP - General Family Medicine 06/14/18 Vasyl Boles MD [address] [place] [phone] Gastroenterology 06/20/24 Amador Green MD [address] [place] [address] Rheumatology 09/18/24 documented as of this encounter
--- OUTSIDE RECORDS SUMMARY | 2024-09-19 19:13 | XMS_ITS | Encounter Summary ---
Author Organization [email or web address] Address [address] [facility] 7t [place] [address] Care Team Providers Care Device Repair Technician Name Role Phone Bharati Soriano MD Primary Care Provider [phone]- [phone] Vasyl Boles MD Unavailable [phone] Amador Green MD Unavailable [phone] Reason for Visit * Reason Comments Med Refill Encounter Details Date Type Department Care Team (Late st Contact Info) Description 07/30/2024 Refill [facility] MEDICINE 230 [place], [place] [phone] Bharati Soriano MD 230 [place] [address] Gastroesophageal reflux disease without esophagitis Social History [...] 12/19/2024 11:00 AM EDT Office Visit [facility] MEDICINE 230 [place] [address] 03/14/2025 1:00 PM EDT Office Visit [facility] ADULT DENTAL [address] [place] [address] Denzel, Elo 230 [place] [address] documented as of this encounter Visit Diagnoses Diagnosis Gastroesophageal reflux disease without esophagitis Esophageal reflux documented in this encounter Additional Health Concerns Assessment Noted Time PHQ-9 Depression Total Score: 1 01/14/20 24 10:00 AM EDT documented as of this encounter Care Teams Device Repair Technician Relationship Specialty Start Date End Date Bharati Soriano MD [address] [place] [address] PCP - General Family Medicine 06/14/18 Vasyl Boles MD [address] [place] [phone] Gastroenterology 06/20/24 Amador Green MD [address] [place] [address] Rheumatology 09/18/24 documented as of this encounter
--- OUTSIDE RECORDS SUMMARY | 2024-09-19 19:13 | XMS_ITS | Encounter Summary ---
Author Organization [facility] Address [address] [place] [address] 7 [place] [address] Care Team Providers Care Land Commissioner Name Role Phone Bharati Soriano MD Primary Care Provider [phone]- [phone] Vasyl Boles MD Unavailable [phone] Amador Green MD Unavailable [phone] Encounter Details Date Type Department Care Team (Latest Contact Info) Description 08/23/2019 Abstract [facility] CONVERSIONS Dental, Provider, DDS Social History [...] 12/19/2024 11:00 AM EDT Office Visit [facility] MEDICINE 230 [place] [address] 03/14/2025 1:00 PM EDT Office Visit [facility] ADULT DENTAL [address] [place] [address] Denzel, Elo 230 [place] [address] documented as of this encounter Visit Diagnoses Not on filedocumented in this encounter Care Teams Land Commissioner Relationship Specialty Start Date End Date Bharati Soriano MD 230 [place] [address] PCP - General Family Medicine 06/14/18 Vasyl Boles MD [address] [place] [address] Gastroenterology 06/20/24 Amador Green MD [address] [place] [address] Rheumatology 09/18/24 documented as of this encounter
--- OUTSIDE RECORDS SUMMARY | 2024-09-19 19:14 | XMS_ITS | Encounter Summary ---
Author Organization [employer] Address [address] [facility] 7t [place] [address] Care Team Providers Care Mailroom Coordinator Name Role Phone Bharati Soriano MD Primary Care Provider [phone]- [phone] Vasyl Boles MD Unavailable [phone] Amador Green MD Unavailable [phone] Reason for Visit * Reason Onset Date Comments Durable Medical Equipment 09/06/2024 Encounter Details Date Type Department Care Team (Late st Contact Info) Description 09/06/[address] [facility] MEDICINE [address] [place], [place] [phone] Bharati Soriano MD [address] [place] [address] Durable Medical Equipment Social History Tobacco Use Types Packs/Day Years [...] encounter Miscellaneous Notes * Telephone Encounter - Shelly Camara [place] - 09/19/2024 11:21 AM EDT DME Script generated for Cane sign and faxed L&C. * Telephone Encounter - Iraida Baron MA - 09/09/2024 9:19 AM EDT DME rx for can has been generated and placed on PCP desk for signature. * Telephone Encounter - Elena Finney - 09/06/2024 2:36 PM EDT Tc from pt requesting DME RX for a cane pt lost her cane and needs urgently. documented in this encounter Plan of Treatment Upcoming Encounters Date Type Department Care Team (Late st Contact Info) Description 12/19/2024 11:00 AM EDT Office Visit [facility] MEDICINE [address] [place] [address] 03/14/2025 1:00 PM EDT Office Visit [facility] ADULT DENTAL [address] [place] [address] Elo Mahoney [address] [place] [address] documented as of this encounter Visit Diagnoses Not on filedocumented in this encounter Additional Health Concerns Assessment Noted Time PHQ-9 Depression Total Score: 1 01/14/20 24 10:00 AM EDT documented as of this encounter Care Teams Mailroom Coordinator Relationship Specialty Start Date End Date Bharati Soriano MD [address] [place] [address] PCP - General Family Medicine 06/14/18 Vasyl Boles MD [address] [place] [phone] Gastroenterology 06/20/24 Amador Green MD [address] [place] [address] Rheumatology 09/18/24 documented as of this encounter
[2024-09-25 10:47] LABS: Alprazolam, GCMS Urine NEGATIVE; Aminoclonazepam, GCMS Urine NEGATIVE
[2024-09-25 10:48] LABS: Alphahydroxymidazolam,GCMS Ur NEGATIVE; Alphahydroxytriazolam, GCMS Ur NEGATIVE; Flurazepam Metabolite,GCMS Ur NEGATIVE; Lorazepam GCMS Urine NEGATIVE; Nordiazepam, GCMS Urine NEGATIVE; Oxazepam, GCMS Urine NEGATIVE; Temazepam, GCMS Urine NEGATIVE
== END 2024-09-19 16:56 | disposition home or self-care (01) ==
LOC: HO.HHCLNP 16:55
PROVIDERS: Visit Provider Family Medicine
DX: Z79.891 Long term (current) use of opiate analgesic (principal)
CPT/HCPCS: 80346

== ENCOUNTER 2024-09-21 12:43 | Outpatient (REF) | payer MEDICARE, MEDICAID, SELFPAY ==
--- OUTSIDE RECORDS SUMMARY | 2024-09-21 15:10 | XMS_ITS | Encounter Summary ---
Author Organization [facility] Address [address] [place] [address] 7 [place] [address] Care Team Providers Care Merchandise Stocker Name Role Phone Bharati Soriano MD Primary Care Provider [phone]- [phone] Vasyl Boles MD Unavailable [phone] Amador Green MD Unavailable [phone] Encounter Details Date Type Department Care Team (Latest Contact Info) Description 03/16/2022 Abstract [facility] CONVERSIONS Dental, Provider, DDS Social History [...] Description 12/19/2024 11:00 AM EDT Office Visit [facility] MEDICINE [address] [place] [address] 03/14/2025 1:00 PM EDT Office Visit [facility] ADULT DENTAL [address] [place] [address] Denzel Elo [address] [place] [address] documented as of this encounter Visit Diagnoses Not on filedocumented in this encounter Care Teams Merchandise Stocker Relationship Specialty Start Date End Date Bharati Soriano MD [address] [place] [address] PCP - General Family Medicine 06/14/18 Vasyl Boles MD [address] [place] [phone] Gastroenterology 06/20/24 Amador Green MD [address] [place] [address] Rheumatology 09/18/24 documented as of this encounter
--- OUTSIDE RECORDS SUMMARY | 2024-09-21 15:10 | XMS_ITS | Encounter Summary ---
Author Organization [email or web address] Address [address] [facility] 7t [place] [address] Care Team Providers Care Lavender Farm Worker Name Role Phone Bharati Soriano MD Primary Care Provider +[phone]- [phone] Vasyl Boles MD Unavailable [phone] Amador Green MD Unavailable [phone] Reason for Visit * Reason Comments Med Refill Encounter Details Date Type Department Care Team (Late st Contact Info) Description 07/16/2024 Refill [facility] MEDICINE 230 [place], [place] [phone] Bharati Soriano MD 230 [place] [address] Mild intermittent asthma, unspecified whether complicated; Acquired [...] 11:00 AM EDT Office Visit [facility] MEDICINE [address] [place] [address] 03/14/2025 1:00 PM EDT Office Visit [facility] ADULT DENTAL [address] [place] [address] Denzel Elo [address] [place] [address] documented as of this encounter Visit Diagnoses Diagnosis Mild intermittent asthma, unspecified whether complicated Acquired hypothyroidism Unspecified hypothyroidism documented in this encounter Additional Health Concerns Assessment Noted Time PHQ-9 Depression Total Score: 1 01/14/20 24 10:00 AM EDT documented as of this encounter Care Teams Lavender Farm Worker Relationship Specialty Start Date End Date Bharati Soriano MD [address] [place] [address] PCP - General Family Medicine 06/14/18 Vasyl Boles MD [address] [place] [address] [place] [phone] Gastroenterology 06/20/24 Amador Green MD [address] [place] [address] Rheumatology 09/18/24 documented as of this encounter
--- OUTSIDE RECORDS SUMMARY | 2024-09-21 15:10 | XMS_ITS | Encounter Summary ---
Author Organization [employer] Address [address] [place] [address] 7t [place] [address] Care Team Providers Care Cushion Assembler Name Role Phone Bharati Soriano MD Primary Care Provider [phone]- [phone] Vasyl Boles MD Unavailable [phone] Amador Green MD Unavailable [phone] Reason for Visit * Reason Onset Date Comments Medication Question 06/12/2022 Encounter Details Date Type Department Care Team (Late st Contact Info) Description 06/12/2022 Telephone [facility] MEDICINE [address] [place], [place] [phone] Bharati Soriano MD 230 [place], [place] [phone] Medication Question Social History Tobacco Use Types [...] [place] . Pt[facility] [address] . Pt would like to know if she will be able to get meds before the long weekend ? documented in this encounter Plan of Treatment Upcoming Encounters Date Type Department Care Team (Late st Contact Info) Description 12/19/2024 11:00 AM EDT Office Visit [facility] MEDICINE [address] [place] [address] 03/14/2025 1:00 PM EDT Office Visit [facility] ADULT DENTAL [address] [place] [address] Denzel, Elo [address] [place] [address] documented as of this encounter Visit Diagnoses Diagnosis Pain Generalized pain documented in this encounter Care Teams Cushion Assembler Relationship Specialty Start Date End Date Bharati Soriano MD [address] [place] [address] PCP - General Family Medicine 06/14/18 Vasyl Boles MD [address] [place] [phone] Gastroenterology 06/20/24 Amador Green MD [address] [place] [address] Rheumatology 09/18/24 documented as of this encounter
--- OUTSIDE RECORDS SUMMARY | 2024-09-21 15:10 | XMS_ITS | Encounter Summary ---
Author Organization [employer] [facility] Address [address] [place] [address] 7t [place] [address] Care Team Providers Care Day Haul Or Farm Charter Bus Driver Name Role Phone Bharati Soriano MD Primary Care Provider [phone]- [phone] Vasyl Boles MD Unavailable [phone] Amador Green MD Unavailable [phone] Encounter Details Date Type Department Care Team (Late Contact Info) Description 10/12/2022 Abstract [facility] MEDICINE [address] [place] [address] Bharati Soriano MD [address] [place], [place] [phone] Social History Tobacco Use Types Packs/Day Years [...] Description 12/19/2024 11:00 AM EDT Office Visit [facility] MEDICINE [address] [place] [address] 03/14/2025 1:00 PM EDT Office Visit [facility] ADULT DENTAL [address] [place] [address] Elo Mahoney [address] [place] [address] documented as of this encounter Visit Diagnoses Not on filedocumented in this encounter Care Teams Day Haul Or Farm Charter Bus Driver Relationship Specialty Start Date End Date Bharati Soriano MD [address] [place] [address] PCP - General Family Medicine 06/14/18 Vasyl Boles MD [address] [place] [phone] Gastroenterology 06/20/24 Amador Green MD [address] [place] [address] Rheumatology 09/18/24 documented as of this encounter
--- OUTSIDE RECORDS SUMMARY | 2024-09-21 15:10 | XMS_ITS | Encounter Summary ---
Author Organization [employer] Address [address] [place] [address] 7t [place] [address] Care Team Providers Care Recooperer Name Role Phone Bharati Soriano MD Primary Care Provider [phone]- [phone] Vasyl Boles MD Unavailable [phone] Amador Green MD Unavailable [phone] Reason for Visit * Reason Comments Med Refill Encounter Details Date Type Department Care Team (Late st Contact Info) Description 11/17/2022 Refill [facility] MEDICINE [address] [place], [place] [phone] Bharati Soriano MD [address] [place] [address] Wheeze Social History Tobacco Use Types Packs/Day [...] Description 12/19/2024 11:00 AM EDT Office Visit [facility] MEDICINE [address] [place] [address] 03/14/2025 1:00 PM EDT Office Visit [facility] ADULT DENTAL [address] [place] [address] Elo Mahoney [address] [place] [address] documented as of this encounter Visit Diagnoses Diagnosis Wheeze Wheezing documented in this encounter Additional Health Concerns Assessment Noted Time PHQ-9 Depression Total Score: 0 10/16/19 23 2:27 PM EDT documented as of this encounter Care Teams Recooperer Relationship Specialty Start Date End Date Bharati Soriano MD [address] [place] [address] PCP - General Family Medicine 06/14/18 Vasyl Boles MD [address] [place] [address] Gastroenterology 06/20/24 Amador Green MD [address] [place] [address] Rheumatology 09/18/24 documented as of this encounter
--- OUTSIDE RECORDS SUMMARY | 2024-09-21 15:10 | XMS_ITS | Encounter Summary ---
Author Organization [employer] [facility] Address [address] [place] [address] 7 [place] [address] Care Team Providers Care It Quality Assurance Analyst Name Role Phone Bharati Soriano MD Primary Care Provider [phone]- [phone] Vasyl Boles MD Unavailable [phone] Amador Green MD Unavailable [phone] Encounter Details Date Type Department Care Team (Late st Contact Info) Description 08/11/2022 Abstract [facility] MEDICINE [address] [place] [address] Bharati Soriano MD [address] [place], [place] [phone] Social History Tobacco Use Types Packs/Day Years [...] 11:00 AM EDT Office Visit [facility] MEDICINE [address] [place] [phone] 03/14/2025 1:00 PM EDT Office Visit [facility] ADULT DENTAL [address] [place] [phone] Elo Mahoney 230 [place] [address] documented as of this encounter Procedures Procedure Name Priority Date/Time Associated Diagnosis Comments PAP SMEAR Routine 03/14/2015 12:00 AM EDT documented in this encounter Results * Pap Smear (03/14/2015 12:00 AM EDT) Swab us Historical Provider LAB CYTOLOGY ORDERABLES F inal Result IMAGING documented in this encounter Visit Diagnoses Not on filedocumented in this encounter Care Teams It Quality Assurance Analyst Relationship Specialty Start Date End Date Bharati Soriano MD [address] [place] [address] PCP - General Family Medicine 06/14/18 Vasyl Boles MD [address] [place] [address] Gastroenterology 06/20/24 Amador Green MD [address] [place] [address] Rheumatology 09/18/24 documented as of this encounter
--- OUTSIDE RECORDS SUMMARY | 2024-09-21 15:10 | XMS_ITS | Encounter Summary ---
Author Organization [employer] [facility] Address [address] [place] [address] 7 [place] [address] Care Team Providers Care Dry Wall Finisher Name Role Phone Bharati Soriano MD Primary Care Provider [phone]- [phone] Vasyl Boles MD Unavailable [phone] Amador Green MD Unavailable [phone] Encounter Details Date Type Department Care Team (Latest Contact Info) Description 03/26/2021 Abstract [facility] CONVERSIONS Dental, [...] Visit [facility] MEDICINE [address] [place] [address] 03/14/2025 1:00 PM EDT Office Visit [facility] ADULT DENTAL [address] [place] [address] Denzel Elo [address] [place] [address] documented as of this encounter Visit Diagnoses Not on filedocumented in this encounter Care Teams Dry Wall Finisher Relationship Specialty Start Date End Date Bharati Soriano MD [address] [place] [address] PCP - General Family Medicine 06/14/18 Vasyl Boles MD [address] [place] [phone] Gastroenterology 06/20/24 Amador Green MD [address] [place] [address] Rheumatology 09/18/24 documented as of this encounter
--- OUTSIDE RECORDS SUMMARY | 2024-09-21 15:10 | XMS_ITS | Encounter Summary ---
Author Organization [employer] Address [address] [facility] 7t [place] [address] Care Team Providers Care Power Tool Repair Technician Name Role Phone Bharati Soriano MD Primary Care Provider [phone] Vasyl Boles MD Unavailable [phone] Amador Green MD Unavailable Encounter Details Date Type Department Care Team (Late st Contact Info) Description 06/12/2022 Orders Only [facility] MED & PEDS [address] [place] [address] Leena Verdin, ANP [address] [place] [address] Social History Tobacco Use Types Packs/Day Years [...] Description 12/19/2024 11:00 AM EDT Office Visit [facility] MEDICINE [address] [place], [place] [phone] 03/14/2025 1:00 PM EDT Office Visit [facility] ADULT DENTAL [address] [place] [address] Elo Mahoney [address] [place] [address] documented as of this encounter Visit Diagnoses Not on filedocumented in this encounter Care Teams Power Tool Repair Technician Relationship Specialty Start Date End Date Bharati Soriano MD [address] [place] [address] PCP - General Family Medicine 06/14/18 Vasyl Boles MD [address] [place] [address] [place] [phone] Gastroenterology 06/20/24 Amador Green MD [address] [place] [phone] Rheumatology 09/18/24 documented as of this encounter
--- OUTSIDE RECORDS SUMMARY | 2024-09-21 15:10 | XMS_ITS | Encounter Summary ---
Author Organization [employer] Address [address] [facility] 7t [place] [address] Care Team Providers Care Type Copyist Name Role Phone Bharati Soriano MD Primary Care Provider [phone] Vasyl Boles MD Unavailable [phone] Amador Green MD Unavailable [phone] Reason for Visit * Reason Onset Date Comments requesting a call back 09/07/2022 Encounter Details Date Type Department Care Team (Late st Contact Info) Description 09/07/2022 Telephone [facility] MEDICINE [address] [place], [place] [phone] Bharati Soriano MD [address] [place] [address] requesting a call back Social History Tobacco [...] Description 12/19/2024 11:00 AM EDT Office Visit [facility] MEDICINE [address] [place] [address] 03/14/2025 1:00 PM EDT Office Visit [facility] ADULT DENTAL [address] [place] [address] Elo Mahoney [address] [place] [address] documented as of this encounter Visit Diagnoses Not on filedocumented in this encounter Care Teams Type Copyist Relationship Specialty Start Date End Date Bharati Soriano MD [address] [place] [address] PCP - General Family Medicine 06/14/18 Vasyl Boles MD [address] [place] [phone] Gastroenterology 06/20/24 Amador Green MD [address] [place] [address] Rheumatology 09/18/24 documented as of this encounter
--- OUTSIDE RECORDS SUMMARY | 2024-09-21 15:10 | XMS_ITS | Encounter Summary ---
Author Organization [employer] Address [address] [facility] 7t [place] [address] Care Team Providers Care Technical Applications Scientist Name Role Phone Bharati Soriano MD Primary Care Provider [phone] Vasyl Boles MD Unavailable Amador Green MD Unavailable [phone] Reason for Visit * Reason Comments Med Change Request Encounter Details Date Type Department Care Team (Late st Contact Info) Description 09/08/2022 Refill [facility] MEDICINE [address] [place] [address] Bharati Soriano MD [address] [place] [address] Social History Tobacco Use Types Packs/Day Years [...] 11:00 AM EDT Office Visit [facility] MEDICINE [address] [place] [address] 03/14/2025 1:00 PM EDT Office Visit [facility] ADULT DENTAL [address] [place] [address] Elo Mahoney [address] [place] [address] documented as of this encounter Visit Diagnoses Not on filedocumented in this encounter Care Teams Technical Applications Scientist Relationship Specialty Start Date End Date Bharati Soriano MD [address] [place] [address] PCP - General Family Medicine 06/14/18 Vasyl Boles MD [address] [place] [phone] Gastroenterology 06/20/24 [place] [address] [place] [phone] Rheumatology 09/18/24 documented as of this encounter
--- OUTSIDE RECORDS SUMMARY | 2024-09-21 15:10 | XMS_ITS | Encounter Summary ---
Author Organization [employer] Address [address] [place] [address] 7t [place] [address] Care Team Providers Care Promotion Manager Name Role Phone Bharati Soriano MD Primary Care Provider [phone] Vasyl Boles MD Unavailable Amador Green MD Unavailable [phone] Reason for Visit * Reason Comments Med Refill Encounter Details Date Type Department Care Team (Late st Contact Info) Description 10/05/2022 Refill [facility] MEDICINE [address] [place] [address] Bharati Soriano MD [address] [place] [address] Wheeze Social History Tobacco Use Types Packs/Day [...] [facility] MEDICINE [address] [place] [address] 03/14/2025 1:00 PM EDT Office Visit [facility] ADULT DENTAL [address] [place] [address] Elo Mahoney [address] [place] [address] documented as of this encounter Visit Diagnoses Diagnosis Wheeze Wheezing documented in this encounter Care Teams Promotion Manager Relationship Specialty Start Date End Date Bharati Soriano MD [address] [place] [address] PCP - General Family Medicine 06/14/18 Vasyl Boles MD [address] [place] [phone] Gastroenterology 06/20/24 Amador Green MD [address] [place] [address] Rheumatology 09/18/24 documented as of this encounter
--- OUTSIDE RECORDS SUMMARY | 2024-09-21 15:10 | XMS_ITS | Clinical Summary ---
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 Utox positive BZO, confirmatory testing sent out Assessment & Plan (07/13/2024 4:18 PM EST): Medication: Percocet 5-325mg Q6H PRN Indication: lumbar radiculopathy Last DATA EXAMINATION CLERK Agreement: 08/24/23 Assessment & Plan (04/04/2024 5:26 [...] Overview (07/12/2024): Lab Results Component Value Date [id number] 35.8 04/26/2024 Insomnia 12/22/2023 Normal oral exam 05/12/2023 Overview (05/12/2023): -Normal growth and development. -Anticipatory guidance discussed. -Preventative care / harm reduction discussed. Assessment & Plan (05/12/2023 10:18 AM EST): -Normal growth and development. -Anticipatory guidance discussed. -Preventative care / harm reduction discussed. Other specified health status 04/24/2023 Overview (07/12/2024): -next comprehensive annual evaluation due after 07/12/25 -eye care facilitated by [facility] -dental home is [facility] -Health care proxy given and filed 12/22/23 Assessment & Plan (07/12/2024 4:10 PM EST): -next comprehensive annual evaluation due after 07/12/25 -eye care facilitated by [facility] -dental home is [facility] -Health care proxy given and filed 12/22/23 Assessment & Plan (12/22/2023 2:27 PM EDT): -next physical exam due after 05/12/2024 -eye care facilitated by [facility] -dental home is [facility] -Health care proxy given and filed 12/22/23 [...] Sicca symptoms, positive LUISITO, positive Sm and FAN BLADE TRUER and leukopenia. Followed by rheumatology. Lat note from Amador Green from 09/14/24 reviewed. 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 Followed by rheumatology. Lat note from Dr. Flores 04/06/23 reviewed. -Plaquenil 200mg BID started 04/2018 -continue regular eye exams -s/p flu vaccine 02/2020 done at [facility] -PCV 04/2019 -Referred to new sand slinger 07/12/24 Assessment & Plan (12/22/2023 8:38 AM EDT): Diagnoses 04/2018 baed on arthralgia, Raynauds, Sicca symptoms, positive LUISITO, positive Sm and FAN BLADE TRUER and leukopenia. Followed by rheumatology. Lat note from Dr. Flores 04/06/23 reviewed. -Plaquenil 200mg BID started 04/2018 -continue regular eye exams -s/p flu vaccine 02/2020 done at [facility] -PCV 04/2019 Assessment & Plan (05/12/2023 10:17 AM EST): Diagnoses 04/2018 baed on arthralgia, Raynauds, Sicca symptoms, positive LUISITO, positive Sm and FAN BLADE TRUER and leukopenia. Followed by rheumatology. Lat note from Dr. Flores 04/06/23 reviewed. -Plaquenil 200mg BID started 04/2018 -continue regular eye exams -s/p flu vaccine 02/2020 done at [facility] -PCV 04/2019 Assessment & Plan (10/15/2022 2:23 PM EDT): Diagnoses 04/2018 baed on arthralgia, Raynauds, Sicca symptoms, positive LUISITO, positive Sm and FAN BLADE TRUER and leukopenia. Followed by rheumatology. -Plaquenil 200mg BID started 04/2018 -continue regular eye exams -s/p flu vaccine 02/2020 done at [facility] -PCV 23 04/2019 Chronic diarrhea 05/08/2022 Osteoporosis [...] opioid. Confirmatory testing sent to lab. See recreation technician. Assessment & Plan (07/12/2024 4:09 PM [...] -UTOX and pill count as expected. 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 09/19/2024 Travel 09/07/2024 1:00 PM EDT Office Visit [facility] ADULT DENTAL [address] [place] [address] Elo Mahoney Crowded teeth (Primary Dx); Dental plaque; Excessive attrition of teeth, limited to enamel; Normal oral exam 09/07/2024 Refill [facility] MEDICINE [address] [place] [address] Bharati Soriano MD Mild intermittent asthma, unspecified whether complicated; Acquired hypothyroidism 09/06/[address] [address] Bharati Soriano MD Durable Medical Equipment 09/04/[address] [address] Bharati Soriano MD DME from [employer] 08/31/[address] [address] Bharati Soriano MD [employer] [facility] [employer] (Underwear, prevail nu-fit med) 08/31/2024 Refill [facility] MEDICINE [address] [place] [address] Bharati Soriano MD Pain 08/25/2024 Population Health Risk Score [facility] ([facility] Department [address] [place] [phone] Provider, Population Health Generic 08/09/2024 Telephone [facility] MEDICINE [address] [place] [address] Bharati Soriano MD 08/02/2024 Orders Only [facility] MEDICINE [address] [place] [address] Bharati Soriano MD Primary hypertension; Chronic renal impairment, stage 2 (mild) 08/01/2024 Orders Only [address] [address] Rosi Vergara MD Primary hypertension; Chronic renal impairment, stage 2 (mild) 08/01/2024 Orders Only [address] [address] Bharati Soriano MD Primary hypertension; Chronic renal impairment, stage 2 (mild) 07/30/[address] [address] Bharati Soriano MD Gastroesophageal reflux disease without esophagitis 07/26/[address] [address] Bharati Soriano MD Pain 07/24/[address] [address] Bharati Soriano MD Prior Authorization (Lidocaine 5% patch) 07/16/[address] [address] Bharati Soriano MD Mild intermittent asthma, unspecified whether complicated; Acquired hypothyroidism 07/12/2024 2:45 PM EST Office Visit [address] [address] Bharati Soriano MD Other forms of systemic [...] status 07/11/2024 11:00 AM EST Office Visit [address] [address] Mily Alfredo FNP Chronic low back pain, unspecified back pain laterality, unspecified whether sciatica present (Primary Dx); Lumbar radiculopathy; Sacroiliac joint pain; 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 07/11/[address] [address] Isaura Goode [place] chartprep 07/11/2024 Telephone [facility] MED & PEDS [address] [place] [address] Jocelyn Randall RN 07/11/2024 Travel 07/04/2024 Refill [facility] MEDICINE [address] [place] [address] Bharati Soriano MD Pain 06/30/2024 Patient Outreach [facility] MEDICINE [address] [place], [place] [phone] Bharati Soriano MD Pre-visit Planning (SDOH Screening [...] 12/19/2024 11:00 AM EDT Office Visit [facility] MEDICINE [address] [place] [address] 03/14/2025 1:00 PM EDT Office Visit [facility] ADULT DENTAL [address] [place] [address] Denzel, Elo [address] [place] [address] Health Maintenance Due Date Last Done Comments [...] DRUG SCREEN Routine 09/19/2024 11:42 AM EDT alf (current) use of opiate analgesic Chronic low back pain, unspecified back pain laterality, unspecified whether sciatica present POCT MADHU-14 URINE DRUG SCREEN Routine 09/19/2024 11:40 AM EDT 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 01/31/26 Internal Pass Control us Mily Alfredo STREET CAR MECHANIC POINT OF CARE TEST ENTER/EDIT ORDERABLES Final Result * Referral to Rheumatology (09/11/2024) us Bharati Soriano MD OUTPATIENT REFERRAL ORDERA BLES Final Result * BD DEXA Axial (08/22/2024 11:00 AM EDT) Anatomical Region Laterality Modality Body Radiographic Na ging 08/22/2024 11:0 0 AM EDT Narrative 08/22/2024 12:56 PM EDT ? [facility] ? [address] ?[place] [address] ? Mammography Report ? Signed ? Patient: Fink Fink,Sara ?MR#: ?? [id number] ? : 1955 ?Acct:[id number] ? Age/Sex: 68 / F ?ADM Date: 03/11/25 ? Loc: HO.MAMMO ? Attending Dr: Bharati Soriano MD ? Ordering Physician: Bharati Soriano MD ?Results: ? Date of Service: 08/22/24 ?Follow Up: ? Procedure(s): XR DEXA axial skeleton ?? Accession Number(s): [id number] ? cc: Bharati Soriano MD ? EXAMINATION: ??DXA BONE DENSITY AXIAL ? HISTORY: ??Estrogen deficiency ? TECHNIQUE: Practice Fusion Dual energy absorptiometry (DEXA) ?? of the [...] the [employer]'s ?? Register for Metabolic Bone Disease, a World Health Organization (WHO) ?? Collaborating Center. ? Electronically signed by: ??Babak Mccrary MD ??08/22/2024 12:53 PM EDT ? Dictated By: ?Babak Mccrary MD ? Signed By: ?<Electronically signed by Babak Mccrary MD in OV> ?08/22/24 1253 ? DD/ 1100 ? TD/TT: 08/22/24 1110 ? Seafood Technology Specialist: ? Procedure Note Donkiarrater, Image - 08/22/2024 Juan Pablo [facility]'s [address] [place] [address] Mammography Report Signed Patient: Davis LancasteradMR#: [id number] : 4Acct:[id number] Age/Sex: 68 / FADM Date: 08/22/24 Loc: HO.MAMMO Attending Dr: Bharati Soriano MD Ordering Physician: Bharati Sorianoults: Date of Service: 08/22/24Follow Up: Procedure(s): XR DEXA axial skeleton Accession Number(s): [id number] cc: Bharati Soriano MD EXAMINATION: DXA BONE DENSITY AXIAL HISTORY: Estrogen deficiency TECHNIQUE: Practice Fusion Dual energy absorptiometry (DEXA) of the lumbar [...] is a trademark of the [employer]'s Register for Metabolic Bone Disease, a World Health Organization (WHO) Collaborating Center. Electronically signed by: Babak Mccrary MD 08/22/2024 12:53 PM EDT Dictated By: Babak Mccrary MD Signed By: <Electronically signed by Babak Mccrary MD in OV> 08/22/24 1253 DD/ 1100 TD/TT: 08/22/24 1110 Seafood Technology Specialist: us Bharati Soriano MD IMG DXA PROCEDURES Final R esult * US Abdomen Complete (08/09/2024 8:38 AM EST) Anatomical Region Laterality Modality Abdomen Ultrasound 08/09/2024 8:38 AM EST Narrative 08/09/2024 10:07 AM EST ? [facility] ?[address] ?[place] [address] ? Ultrasound Report ? Signed ? Patient: Fink Fink,Sara ?MR#: ?? [id number] ? : 1955 ?Acct:[id number] ? Age/Sex: 68 / F ?ADM Date: 08/09/24 ? Loc: HO.US ? Attending Dr: Bharati Soriano MD ? Ordering Physician: Bharati Soriano MD ?? Date of Service: 08/09/24 ?? Procedure(s): US abdomen complete ?? Accession Number(s): [id number] ? cc: Bharati Soriano MD ? EXAMINATION: [...] DD/ 0838 ? TD/TT: 08/09/24 0848 ? Seafood Technology Specialist: ? Procedure Note Donotuseinterpreter, Image - 08/09/[address] [address] Ultrasound Report Signed Patient: Davis LancasteradMR#: [id number] : 4Acct:[id number] Age/Sex: 68 / FADM Date: 08/09/24 Loc: HO.US Attending Dr: Bharati Soriano MD Ordering Physician: Bharati Soriano MD Date of Service: 08/09/24 Procedure(s): US abdomen complete Accession Number(s): [id number] cc: Bharati Soriano MD EXAMINATION: US ABDOMEN [...] 08/09/24 1004 DD/ 0838 TD/TT: 08/09/24 0848 Seafood Technology Specialist: Bharati Soriano MD [facility] US PROCEDURES Final Re sult * Drug Monitoring, Benzodiazepines, Quantitative, Urine (07/11/2024 11:30 AM EST) Nordiazepam, GCMS Urine NEGATIVE [facility] Oxazepam, GCMS Urine NEGATIVE [facility] Lorazepam GCMS Urine NEGATIVE [facility] Alprazolam, GCMS Urine NEGATIVE [facility] Alphahydroxytriazolam, GCMS Ur NEGATIVE [facility] Temazepam, GCMS Urine NEGATIVE [facility] Alphahydroxymidazolam,GC MS Ur NEGATIVE [facility] Aminoclonazepam, GCMS Urine NEGATIVE [facility] Flurazepam Metabolite,GCMS Ur NEGATIVE [facility] Benzodiazepines Comments SEE NOTE [facility] Comment:This drug testing is for medical treatment only.Analysis was performed as non-forensic testing andthese results should be used only by healthcareproviders to render diagnosis or treatment, or tomonitor progress of medical conditions.LDT Notes:Confirmation tests were developed and their analyticalperformance characteristics have been determined by[employer]. It has not been cleared or approvedby the FDA. This assay has been validated pursuant tothe CLIA regulations and is used for clinical purposes.Healthcare Providers needing Interpretation assistance,please contact us at [phone] ( )M-F, 8am to 10pm ESTTHIS TEST PERFORMED AT:[facility] [address] [phone] DIRECTOR: VAUGHN BAUTISTA MD Urine (Urine, Random) 07/11/2024 11:30 AM EST 07/11/2024 4:08 PM EST Mily Alfredo [facility] URINE ORDERABLES Final Res ult [facility] [address] [place], [place] [phone] * Drug Toxicology Monitoring Buprenorphine, with Confirmation, Urine (07/11/2024 11:30 AM EST) Buprenorphine NEGATIVE [facility] Comment:REFERENCE RANGE: <2 ng/mL Norbuprenorphine NEGATIVE [facility] Comment:REFERENCE RANGE: <2 ng/mL Naloxone, Urine NEGATIVE [facility] Comment:REFERENCE RANGE: <2 ng/mL Buprenorphine Comments SEE NOTE [facility] Comment:This drug testing is for medical treatment only.Analysis was performed as non-forensic testing andthese results should be used only by healthcareproviders to render diagnosis or treatment, or tomonitor progress of medical conditions.LDT Notes:Confirmation tests were developed and their analyticalperformance characteristics have been determined by[employer]. It has not been cleared or approvedby the FDA. This assay has been validated pursuant tothe CLIA regulations and is used for clinical purposes.Healthcare Providers needing Interpretation assistance,please contact us at [phone] ( )M-F, 8am to 10pm ESTTHIS TEST PERFORMED AT:[facility] [address] [phone] DIRECTOR: VAUGHN BAUTISTA MD Urine (Urine, Random) 07/11/2024 11:30 AM EST 07/11/2024 4:[address] [facility] URINE ORDERABLES Final Res ult Performing Organization Address City/[facility]/ZIP Co de Phone Number [facility] [address] [place] [address] [phone] * Lipid Panel, Standard (04/26/2024 10:02 AM EST) Triglycerides 118 <150 mg/dL [facility] Comment:Desirable Triglyceri de: less than 150 mg/dLBorderline High Triglyceride 150-199 mg/dLHigh Triglyceride: 200-499 mg/dLVery High Triglyceride: greater than or equal to 5OO mg/dL Cholesterol 173 <200 mg/dL [facility] Comment:Desirable Cholestero l: less than 200 mg/dLBorderline High Cholesterol: 200-239 mg/dLHigh Cholesterol: greater than 239 mg/dL LDL Cholesterol Calculated 84 <100 mg/dL [facility] Comment:Desirable LDL: less than 100 mg/dLNear Optimal/Above Optimal LDL: 110- 129 mg/dLBorderline High LDL: 130-159 mg/dLHigh LDL: 160-189 mg/dLVery High LDL: greater than or equal to 190 mg/dL HDL Cholesterol 66 >40 mg/dL [facility] Comment:Desirable HDL: great er than 40 mg/dL Note: This HDL assay may give artificially low results in patients with liver disease. Blood Venous blood specimen / Unknown 04/26/2024 10:02 AM EST 04/26/2024 10:02 AM EST us Bharati Soriano MD LAB BLOOD ORDERABLES Final Result Performing Organization Address City/[facility]/ZIP Co de Phone Number [facility] [address] [place] [address] [phone] * (ABNORMAL) Mammography (09/29/2023 11:17 AM [...] Most Recently Relevant to Health Maintenance Insurance [facility] MEDICARE DENTAL-[facility] MEDICAID STAND ADULT Advance Directives Documents on File Type Date Recorded Patient Weight Loss Physician Expl anation Advance Directives and Living Will 12/22/2023 Health Care Proxy 12/22/23 Care Teams Polisher And Buffer Relationship Specialty Start Date End Date [place], [place] Bharati [address] [place] [address] PCP - General Family Medicine 06/14/18 Vasyl Boles MD [address] [place] [address] [address] [place] [address] Gastroenterology 06/20/24 Amador Green MD [address] [place] [address] Rheumatology 09/18/24
--- OUTSIDE RECORDS SUMMARY | 2024-09-21 15:11 | XMS_ITS | Encounter Summary ---
Author Organization [employer] Address 75 [facility] 7t [place] [address] Care Team Providers Care Saddle Cutter Name Role Phone Bharati Soriano MD Primary Care Provider +[phone]- [phone] Vasyl Boles MD Unavailable [phone] Amador Green MD Unavailable Reason for Visit * Reason Comments Med Refill Encounter Details Date Type Department Care Team (Late st Contact Info) Description 07/02/2023 Refill [facility] MEDICINE [address] [place], [place] [phone] Bharati Soriano MD 230 [place] [address] Social History Tobacco Use Types Packs/Day Years [...] Description 12/19/2024 11:00 AM EDT Office Visit [facility] MEDICINE 230 [place] [address] 03/14/2025 1:00 PM EDT Office Visit [facility] ADULT DENTAL [address] [place] [address] Denzel, Elo 230 [place] [address] documented as of this encounter Visit Diagnoses Not on filedocumented in this encounter Additional Health Concerns Assessment Noted Time PHQ-9 Depression Total Score: 0 10/16/19 23 2:27 PM EDT documented as of this encounter Care Teams Saddle Cutter Relationship Specialty Start Date End Date Bharati Soriano MD [address] [place] [address] PCP - General Family Medicine 06/14/18 Vasyl Boles MD [address] [place] [address] Gastroenterology 06/20/24 Amador Green MD [address] [place] [address] Rheumatology 09/18/24 documented as of this encounter
--- OUTSIDE RECORDS SUMMARY | 2024-09-21 15:11 | XMS_ITS | Encounter Summary ---
Author Organization [employer] Address 75 [facility] 7t [place] [address] Care Team Providers Care Bench Assembler Operator Name Role Phone Bharati Soriano MD Primary Care Provider +[phone]- [phone] Vasyl Boles MD Unavailable [phone] Amador Green MD Unavailable [phone] Reason for Visit * Reason Onset Date Comments Durable Medical Equipment 09/06/2024 Encounter Details Date Type Department Care Team (Late st Contact Info) Description 09/06/2024 Telephone [facility] MEDICINE 230 [place], [place] [phone] Bharati Soriano MD [address] [place] [address] Durable Medical Equipment Social History Tobacco Use [...] Description 12/19/2024 11:00 AM EDT Office Visit [facility] MEDICINE 230 [place] [address] 03/14/2025 1:00 PM EDT Office Visit [facility] ADULT DENTAL 230 [place] [address] Elo Mahoney 230 [place] [address] documented as of this encounter Visit Diagnoses Not on filedocumented in this encounter Additional Health Concerns Assessment Noted Time PHQ-9 Depression Total Score: 1 01/14/20 24 10:00 AM EDT documented as of this encounter Care Teams Bench Assembler Operator Relationship Specialty Start Date End Date Bharati Soriano MD [address] [place] [address] PCP - General Family Medicine 06/14/18 Vasyl Boles MD [address] [place] [phone] Gastroenterology 06/20/24 Amador Green MD [address] [place] [address] Rheumatology 09/18/24 documented as of this encounter
--- OUTSIDE RECORDS SUMMARY | 2024-09-21 15:11 | XMS_ITS | Encounter Summary ---
Author Organization [employer] Address 75 [facility] 7t [place] [address] Care Team Providers Care National Flatbed Truck Driver Name Role Phone Bharati Soriano MD Primary Care Provider [phone]- [phone] Vasyl Boles MD Unavailable [phone] Amador Green MD Unavailable [phone] Reason for Visit * Reason Comments Med Refill Encounter Details Date Type Department Care Team (Late st Contact Info) Description 07/30/2024 Refill [facility] MEDICINE 230 [place], [place] [phone] Bharati Soriano MD 230 [place] [address] Gastroesophageal reflux disease without esophagitis Social History [...] Description 12/19/2024 11:00 AM EDT Office Visit [facility] MEDICINE 230 [place] [address] 03/14/2025 1:00 PM EDT Office Visit [facility] ADULT DENTAL [address] [place] [address] Denzel, Elo [address] [place] [address] documented as of this encounter Visit Diagnoses Diagnosis Gastroesophageal reflux disease without esophagitis Esophageal reflux documented in this encounter Additional Health Concerns Assessment Noted Time PHQ-9 Depression Total Score: 1 01/14/20 24 10:00 AM EDT documented as of this encounter Care Teams National Flatbed Truck Driver Relationship Specialty Start Date End Date Bharati Soriano MD [address] [place] [address] PCP - General Family Medicine 06/14/18 Vasyl Boles MD [address] [place] [phone] Gastroenterology 06/20/24 Amador Green MD [address] [place] [address] Rheumatology 09/18/24 documented as of this encounter
--- OUTSIDE RECORDS SUMMARY | 2024-09-21 15:11 | XMS_ITS | Encounter Summary ---
Author Organization [employer] Address 75 [facility] 7t [place] [address] Care Team Providers Care Job Compositor Name Role Phone Bharati Soriano MD Primary Care Provider +1- [phone] Vasyl Boles MD Unavailable [phone] Amador Green MD Unavailable [phone] Reason for Visit * Reason Comments Med Refill Encounter Details Date Type Department Care Team (Late st Contact Info) Description 05/10/2024 Refill [facility] MEDICINE 230 [place] [address] Bharati Soriano MD 230 [place] [address] Dyslipidemia; Other osteoporosis without current pathological fracture; [...] Visit [facility] MEDICINE [address] [place] [address] 03/14/2025 1:00 PM EDT Office Visit [facility] ADULT DENTAL [address] [place] [address] Al Mahoneyaris 230 [place] [address] documented as of this encounter Visit Diagnoses Diagnosis Dyslipidemia Other and unspecified hyperlipidemia Other osteoporosis without current pathological fracture Mild intermittent asthma, unspecified whether complicated documented in this encounter Additional Health Concerns Assessment Noted Time PHQ-9 Depression Total Score: 1 01/14/20 24 10:00 AM EDT documented as of this encounter Care Teams Job Compositor Relationship Specialty Start Date End Date Bharati Soriano MD [address] [place] [address] PCP - General Family Medicine 06/14/18 Vasyl Boles MD [address] [place] [address] [place] [address] Gastroenterology 06/20/24 Amador Green MD [address] [place] [address] Rheumatology 09/18/24 documented as of this encounter
--- OUTSIDE RECORDS SUMMARY | 2024-09-21 15:11 | XMS_ITS ---
Demographics Address [address] [facility] [address] [place] [address] Mobile Preferred Language en Marital Status Unknown Lutheran Affiliation Unknown Race White Ethnic Group or Author Organization [facility] Address [address] [place] [address] Care Team Providers Care Small Electric Engine Technician Name Role Phone Bharati Soriano MD Primary Care Provider Becca vailable Ramana Bates, Vasyl Unavailable [phone] REASON FOR VISIT script for diapers Encounters Encounter Location Date Provider Diagnosis [facility] [address] [place] [address] 09/20/2023 Vasyl Boles Jr Plan Of Treatment No Information Progress Notes * MICHAEL RENDONADDOB:[birth year] (67 yo F)Acc No.[id number]:09/20/2023 Patient:?PATT RENDON :1955???Age:67 Y???Sex:Female Address:[address] [place] [address] 4, [place], [address] * true * Date:? Generated for Print[employer] junito/Fide/eTransmitting on:?09/21/2024 03:10 PM EDT
--- OUTSIDE RECORDS SUMMARY | 2024-09-21 15:11 | XMS_ITS | Encounter Summary ---
Author Organization [employer] Address 75 [facility] 7t [place] [address] Care Team Providers Care Supervisor Area Name Role Phone Bharati Soriano MD Primary Care Provider [phone]- [phone] Vasyl Boles MD Unavailable [phone] Amador Green MD Unavailable [phone] Reason for Visit * Reason Comments Med Refill Encounter Details Date Type Department Care Team (Late st Contact Info) Description 07/04/2023 Refill [facility] MEDICINE [address] [place], [place] [phone] Bharati Soriano MD 230 [place] [address] Acquired hypothyroidism; Dyslipidemia Social History Tobacco Use [...] Visit [facility] MEDICINE [address] [place] [address] 03/14/2025 1:00 PM EDT Office Visit [facility] ADULT DENTAL [address] [place] [address] Denzel, Elo [address] [place] [address] documented as of this encounter Visit Diagnoses Diagnosis Acquired hypothyroidism Unspecified hypothyroidism Dyslipidemia Other and unspecified hyperlipidemia documented in this encounter Additional Health Concerns Assessment Noted Time PHQ-9 Depression Total Score: 0 10/16/19 23 2:27 PM EDT documented as of this encounter Care Teams Supervisor Area Relationship Specialty Start Date End Date Bharati Soriano MD [address] [place] [address] PCP - General Family Medicine 06/14/18 Vasyl Boles MD [address] [place] [phone] Gastroenterology 06/20/24 Amador Green MD [address] [place] [address] Rheumatology 09/18/24 documented as of this encounter
--- OUTSIDE RECORDS SUMMARY | 2024-09-21 15:11 | XMS_ITS | Patient Health Record ---
Author Organization [facility] Address [address] [place] [address] Care Team Providers Care Grain Combiner Name Role Phone Bharati Soriano MD Primary Care Provider Vasyl Simon Jr Unavailable Allergies Allergen (clinical drug ingredient) [...] 100 MG TAKE 1 TABLET BY MO [facility] EVERY DAY AT BEDTIME [...] Problem Status W/U Status Risk Notes Problem 964006729 Colon cancer screening (Z12.11) Active confirmed Problem 910274290 Radiation procti tis (K62.7) Active confirmed Problem 407946311 Gastroesophageal reflux disease without esophagitis (K21.9) Active confirmed Problem History of malignant neoplasm of rectum (728736351) 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) Active confirmed Problem 45198559 Incontinence of feces, unspecified fecal incontinence type (R15.9) Active confirmed Plan Of Treatment Future Test Test Name Order Date COLONOSCOPY 07/14/2018 COLONOSCOPY 12/25/2021 Insurance Providers Payer Name Payer Address Payer Phone Subscriber Number Group Number Insured Name Patient Relationship to Insured Coverage Start Date Coverage End Date MEDICARE OF [place] [address] [place] [id number] PATT RENDON Self - patient is the insured MEDICAID OF [facility] [place] [address] [place] [address] [id number] PATT RENDON Self - patient is the insured Medical (General) History Medical History History ICD Code hypertension 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
--- OUTSIDE RECORDS SUMMARY | 2024-09-21 15:11 | XMS_ITS | Encounter Summary ---
Author Organization [employer] Address 75 [facility] 7t [place] [address] Care Team Providers Care Panel Monitor Name Role Phone Bharati Soriano MD Primary Care Provider [phone]- [phone] Vasyl Boles MD Unavailable [phone] Amador Green MD Unavailable [phone] Reason for Visit * Reason Onset Date Comments Med Refill 06/01/2023 Encounter Details Date Type Department Care Team (Late st Contact Info) Description 06/01/2023 Telephone [facility] MEDICINE 230 [place], [place] [phone] Bharati Soriano MD 230 [place] [address] Med Refill Social History Tobacco Use Types [...] Description 12/19/2024 11:00 AM EDT Office Visit [facility] MEDICINE 230 [place] [address] 03/14/2025 1:00 PM EDT Office Visit [facility] ADULT DENTAL 230 [place] [address] Elo Mahoney [address] [place] [address] documented as of this encounter Visit Diagnoses Not on filedocumented in this encounter Additional Health Concerns Assessment Noted Time PHQ-9 Depression Total Score: 0 10/16/19 23 2:27 PM EDT documented as of this encounter Care Teams Panel Monitor Relationship Specialty Start Date End Date Bharati Soriano MD 230 [place] [address] PCP - General Family Medicine 06/14/18 Vasyl Boles MD [address] [place] [address] [place] [address] Gastroenterology 06/20/24 Amador Green MD [address] [place] [address] Rheumatology 09/18/24 documented as of this encounter
--- OUTSIDE RECORDS SUMMARY | 2024-09-21 15:11 | XMS_ITS | Encounter Summary ---
Author Organization [employer] Address [address] [facility] [address] 7t [place] [address] Care Team Providers Care Baggage Inspector Name Role Phone Bharati Soriano MD Primary Care Provider [phone]- [phone] Vasyl Boles MD Unavailable [phone] Amador Green MD Unavailable [phone] Encounter Details Date Type Department Care Team (Late st Contact Info) Description 09/29/2023 Orders Only [facility] 230 [place], [place] [phone] Bryon Fuller MD 230 [place], [place] [phone] Social History Tobacco Use Types Packs/Day Years [...] EDT Office Visit [facility] MEDICINE 230 [place] [address] 03/14/2025 1:00 PM EDT Office Visit [facility] ADULT DENTAL 230 [place] [address] Denzel, Elo [address] [place] [address] documented as of this encounter Visit Diagnoses Not on filedocumented in this encounter Additional Health Concerns Assessment Noted Time PHQ-9 Depression Total Score: 0 10/16/19 23 2:27 PM EDT documented as of this encounter Care Teams Baggage Inspector Relationship Specialty Start Date End Date Bharati Soriano MD [address] [place] [address] PCP - General Family Medicine 06/14/18 Vasyl Boles MD [address] [place] [address] Gastroenterology 06/20/24 Amador Green MD [address] [place] [address] Rheumatology 09/18/24 documented as of this encounter
--- OUTSIDE RECORDS SUMMARY | 2024-09-21 15:11 | XMS_ITS | Encounter Summary ---
Author Organization [employer] Address [address] [place] [address] 7t [place] [address] Care Team Providers Care Compliance Coordinator Name Role Phone Bharati Soriano MD Primary Care Provider [phone]- [phone] Vasyl Boles MD Unavailable [phone] Amador Green MD Unavailable [phone] Reason for Visit * Reason Onset Date Comments Other 11/03/2022 Encounter Details Date Type Department Care Team (Late st Contact Info) Description 11/03/2022 Telephone [facility] MEDICINE 230 [place], [place] [phone] Bharati Soriano MD 230 [place], [place] 1936140 Other Social History Tobacco Use Types Packs/Day [...] EDT Tc from patient returning call back, web content writer didn't see any notes. documented in this encounter Plan of Treatment Upcoming Encounters Date Type Department Care Team (Late st Contact Info) Description 12/19/2024 11:00 AM EDT Office Visit [facility] MEDICINE 230 [place] [address] 03/14/2025 1:00 PM EDT Office Visit [facility] ADULT DENTAL [address] [place] [address] DenzelElo [address] [place] [address] documented as of this encounter Visit Diagnoses Not on filedocumented in this encounter Additional Health Concerns Assessment Noted Time PHQ-9 Depression Total Score: 0 10/16/19 23 2:27 PM EDT documented as of this encounter Care Teams Compliance Coordinator Relationship Specialty Start Date End Date Bharati Soriano MD 230 [place] [address] PCP - General Family Medicine 06/14/18 Vasyl Boles MD [address] [place] [address] Gastroenterology 06/20/24 Amador Green MD [address] [place] [address] Rheumatology 09/18/24 documented as of this encounter
--- OUTSIDE RECORDS SUMMARY | 2024-09-21 15:11 | XMS_ITS | Encounter Summary ---
Author Organization [employer] Address [address] [facility] [address] 7t [place] [address] Care Team Providers Care Assistant Teacher Primary Name Role Phone Bharati Soriano MD Primary Care Provider [phone]- [phone] Vasyl Boles MD Unavailable [phone] Amador Green MD Unavailable [phone] Encounter Details Date Type Department Care Team (Late st Contact Info) Description 01/04/2024 Orders Only [facility] MEDICINE 230 [place] [address] Hortencia Beard, JÚNIOR [address] [place] [address] Pain Social History Tobacco Use Types Packs/Day [...] Description 12/19/2024 11:00 AM EDT Office Visit [facility] MEDICINE [address] [place] [address] 03/14/2025 1:00 PM EDT Office Visit [facility] ADULT DENTAL [address] [place] [address] Denzel, Elo [address] [place] [address] Scheduled Orders Name Type Priority Associated Diagnoses [...] 11:23 AM EDT) Nordiazepam, GCMS Urine NEGATIVE [facility] Oxazepam, GCMS Urine NEGATIVE [facility] Lorazepam GCMS Urine NEGATIVE [facility] Alprazolam, GCMS Urine NEGATIVE [facility] Alphahydroxytriazolam, GCMS Ur NEGATIVE [facility] Temazepam, GCMS Urine NEGATIVE [facility] Alphahydroxymidazolam,GC MS Ur NEGATIVE [facility] Aminoclonazepam, GCMS Urine NEGATIVE [facility] Flurazepam Metabolite,GCMS Ur NEGATIVE [facility] Benzodiazepines Comments SEE NOTE [facility] Comment:This drug testing is for medical treatment only.Analysis was performed as non-forensic testing andthese results should be used only by healthcareproviders to render diagnosis or treatment, or tomonitor progress of medical conditions.LDT Notes:Confirmation tests were developed and their analyticalperformance characteristics have been determined by[employer]. It has not been cleared or approvedby the FDA. This assay has been validated pursuant tothe CLIA regulations and is used for clinical purposes.Healthcare Providers needing Interpretation assistance,please contact us at [phone] ( )M-F, 8am to 10pm ESTTHIS TEST PERFORMED AT:[facility] [address] [phone] 2032LABORATORY DIRECTOR: VAUGHN BAUTISTA MD 01/04/2024 11:2 3 AM EDT 01/04/2024 1:53 PM EDT us Mily Alfredo [facility] URINE ORDERABLES Final Res ult [facility] [address] [place] [address] [phone] documented in this encounter Visit Diagnoses Diagnosis Pain Generalized pain documented in this encounter Additional Health Concerns Assessment Noted Time PHQ-9 Depression Total Score: 2 12/22/19 24 2:00 PM EDT documented as of this encounter Care Teams Assistant Teacher Primary Relationship Specialty Start Date End Date Bharati Soriano MD [address] [place] [address] PCP - General Family Medicine 06/14/18 Vasyl Boles MD [address] [place] [address] [place] [phone] Gastroenterology 06/20/24 Amador Green MD [address] [place] [address] Rheumatology 09/18/24 documented as of this encounter
--- OUTSIDE RECORDS SUMMARY | 2024-09-21 15:11 | XMS_ITS | Encounter Summary ---
Author Organization [employer] Address 75 [facility] 7t [place] [address] Care Team Providers Care Store Facility Technician Name Role Phone Bharati Soriano MD Primary Care Provider [phone]- [phone] Vasyl Boles MD Unavailable [phone] Amador Green MD Unavailable [phone] Encounter Details Date Type Department Care Team [...] the past 12 months, has t he [employer], gas, oil or water company threatened to [...] AM EDT Office Visit [facility] MEDICINE [address] [place] [address] 03/14/2025 1:00 PM EDT Office Visit [facility] ADULT DENTAL [address] [place] [address] Denzel Elo [address] [place] [address] documented as of this encounter Visit Diagnoses Not on filedocumented in this encounter Additional Health Concerns Assessment Noted Time PHQ-9 Depression Total Score: 1 01/14/20 24 10:00 AM EDT documented as of this encounter Care Teams Store Facility Technician Relationship Specialty Start Date End Date Bharati Soriano MD [address] [place] [address] PCP - General Family Medicine 06/14/18 Vasyl Boles MD [address] [place] [phone] Gastroenterology 06/20/24 Amador Green MD [address] [place] [address] Rheumatology 09/18/24 documented as of this encounter
--- OUTSIDE RECORDS SUMMARY | 2024-09-21 15:11 | XMS_ITS | Encounter Summary ---
Author Organization [employer] Address 75 [facility] 7t [place] [address] Care Team Providers Care Video Producer Name Role Phone Bharati Soriano MD Primary Care Provider [phone] Vasyl Boles MD Unavailable [phone] Amador Green MD Unavailable [phone] Reason for Visit * Reason Onset Date Comments Med Refill 05/03/2023 Encounter Details Date Type Department Care Team (Late st Contact Info) Description 05/03/2023 Telephone [facility] MEDICINE 230 [place], [place] [phone] Bharati Soriano MD [address] [place] [address] Med Refill Social History Tobacco Use Types [...] Description 12/19/2024 11:00 AM EDT Office Visit [facility] MEDICINE [address] [place] [address] 03/14/2025 1:00 PM EDT Office Visit [facility] ADULT DENTAL [address] [place] [address] DenzelElo [address] [place] [address] documented as of this encounter Visit Diagnoses Not on filedocumented in this encounter Additional Health Concerns Assessment Noted Time PHQ-9 Depression Total Score: 0 10/16/19 23 2:27 PM EDT documented as of this encounter Care Teams Video Producer Relationship Specialty Start Date End Date Bharati Soriano MD [address] [place] [address] PCP - General Family Medicine 06/14/18 Vasyl Boles MD [address] [place] [address] [place] [address] Gastroenterology 06/20/24 Amador Green MD [address] [place] [address] Rheumatology 09/18/24 documented as of this encounter
--- OUTSIDE RECORDS SUMMARY | 2024-09-21 15:11 | XMS_ITS | Encounter Summary ---
Author Organization [employer] Address 75 [facility] 7t [place] [address] Care Team Providers Care Data Management Consultant Name Role Phone Bharati Soriano MD Primary Care Provider [phone] Vasyl Boles MD Unavailable [phone] Amador Green MD Unavailable [phone] Encounter Details Date Type Department Care Team (Late st Contact Info) Description 05/30/2024 Telephone [facility] MEDICINE 230 [place], [place] [phone] Bharati Soriano MD [address] [place], [place] [phone] Social History Tobacco Use Types Packs/Day Years [...] 11:00 AM EDT Office Visit [facility] MEDICINE [address] [place] [address] 03/14/2025 1:00 PM EDT Office Visit [facility] ADULT DENTAL [address] [place] [address] DenzelAlElo [address] [place] [address] documented as of this encounter Visit Diagnoses Not on filedocumented in this encounter Additional Health Concerns Assessment Noted Time PHQ-9 Depression Total Score: 1 01/14/20 24 10:00 AM EDT documented as of this encounter Care Teams Data Management Consultant Relationship Specialty Start Date End Date Bharati Soriano MD [address] [place] [address] PCP - General Family Medicine 06/14/18 Vasyl Boles MD [address] [place] [phone] Gastroenterology 06/20/24 Amador Green MD [address] [place] [address] Rheumatology 09/18/24 documented as of this encounter
--- OUTSIDE RECORDS SUMMARY | 2024-09-21 15:11 | XMS_ITS | Encounter Summary ---
Author Organization [employer] Address 75 [facility] 7t [place] [address] Care Team Providers Care Foxing Cutting Machine Operator Name Role Phone Bharati Soriano MD Primary Care Provider +1- [phone] Vasyl Boles MD Unavailable Amador Green MD Unavailable [phone] Reason for Visit * Reason Comments Med Refill Encounter Details Date Type Department Care Team (Late st Contact Info) Description 06/18/2023 Refill [facility] MEDICINE [address] [place], [place] [phone] Bharati Soriano MD 230 [place] [address] Dyslipidemia; Acquired hypothyroidism Social History Tobacco Use [...] 12/19/2024 11:00 AM EDT Office Visit [facility] MEDICINE [address] [place] [address] 03/14/2025 1:00 PM EDT Office Visit [facility] ADULT DENTAL [address] [place] [address] Denzel, Elo [address] [place] [address] documented as of this encounter Visit Diagnoses Diagnosis Dyslipidemia Other and unspecified hyperlipidemia Acquired hypothyroidism Unspecified hypothyroidism documented in this encounter Additional Health Concerns Assessment Noted Time PHQ-9 Depression Total Score: 0 10/16/19 23 2:27 PM EDT documented as of this encounter Care Teams Foxing Cutting Machine Operator Relationship Specialty Start Date End Date Bharati Soriano MD 230 [place] [address] PCP - General Family Medicine 06/14/18 Vasyl Boles MD [address] [place] [phone] Gastroenterology 06/20/24 Amador Green MD [address] [place] [address] Rheumatology 09/18/24 documented as of this encounter
--- OUTSIDE RECORDS SUMMARY | 2024-09-21 15:11 | XMS_ITS | Encounter Summary ---
Author Organization [employer] [facility] Address [address] [place] [address] 7 [place] [address] Care Team Providers Care Professor Of Historical Theology Name Role Phone Bharati Soriano MD Primary Care Provider +1- [phone] Vasyl Boles MD Unavailable [phone] Amador Green MD Unavailable [phone] Encounter Details Date Type Department Care Team (Latest Contact Info) Description 06/29/2018 Abstract [facility] CONVERSIONS Dental, Provider, DDS Social History [...] Description 12/19/2024 11:00 AM EDT Office Visit [facility] MEDICINE [address] [place] [address] 03/14/2025 1:00 PM EDT Office Visit [facility] ADULT DENTAL [address] [place], [place] [phone] Denzel Elo [address] [place] [address] documented as of this encounter Visit Diagnoses Not on filedocumented in this encounter Care Teams Professor Of Historical Theology Relationship Specialty Start Date End Date Bharati Soriano MD 230 [place] [address] PCP - General Family Medicine 06/14/18 Vasyl Boles MD [address] [place] [phone] Gastroenterology 06/20/24 Amador Green MD [address] [place] [address] Rheumatology 09/18/24 documented as of this encounter
--- OUTSIDE RECORDS SUMMARY | 2024-09-21 15:11 | XMS_ITS | Encounter Summary ---
Author Organization [employer] Address 75 [facility] 7t [place] [address] Care Team Providers Care Hand Binder Stripper Name Role Phone Bharati Soriano MD Primary Care Provider +1- [phone] Vasyl Boles MD Unavailable [phone] Amador Green MD Unavailable [phone] Reason for Visit * Reason Onset Date Comments Med Refill 02/01/2024 Encounter Details Date Type Department Care Team (Late st Contact Info) Description 02/01/2024 Telephone [facility] MEDICINE [address] [place], [place] [phone] Bharati Soriano MD [address] [place] [address] Med Refill Social History Tobacco Use Types [...] 5-325 MG tablet To be sent to: [facility]/pharmacy #[address] [place] [address] - [address] [place] [address] documented in this encounter Plan of Treatment Upcoming Encounters Date Type Department Care Team (Late st Contact Info) Description 12/19/2024 11:00 AM EDT Office Visit [facility] MEDICINE [address] [place] [address] 03/14/2025 1:00 PM EDT Office Visit [facility] ADULT DENTAL [address] [place] [address] Elo Mahoney [address] [place] [address] documented as of this encounter Visit Diagnoses Not on filedocumented in this encounter Additional Health Concerns Assessment Noted Time PHQ-9 Depression Total Score: 1 01/14/20 24 10:00 AM EDT documented as of this encounter Care Teams Hand Binder Stripper Relationship Specialty Start Date End Date Bharati Soriano MD [address] [place] [address] PCP - General Family Medicine 06/14/18 Vasyl Boles MD [address] [place] [address] [address] [place] [phone] Gastroenterology 06/20/24 Amador Green MD [address] [place] [address] Rheumatology 09/18/24 documented as of this encounter
--- OUTSIDE RECORDS SUMMARY | 2024-09-21 15:11 | XMS_ITS | Encounter Summary ---
Author Organization [employer] Address 75 [facility] 7t [place] [address] Care Team Providers Care Oil Dipper Name Role Phone Bharati Soriano MD Primary Care Provider [phone]- [phone] Vasyl Boles MD Unavailable [phone] Amador Green MD Unavailable [phone] Reason for Visit * Reason Onset Date Comments Med Refill 05/03/2024 Encounter Details Date Type Department Care Team (Late st Contact Info) Description 05/03/2024 Telephone [facility] MEDICINE [address] [place], [place] [phone] Bharati Soriano MD [address] [place] [address] Med Refill Social History Tobacco Use Types [...] 5-325 MG tablet To be sent to: [facility]/pharmacy #[id number] [place] [address] - [address] [place] [address] documented in this encounter Plan of Treatment Upcoming Encounters Date Type Department Care Team (Late st Contact Info) Description 12/19/2024 11:00 AM EDT Office Visit [facility] MEDICINE [address] [place] [address] 03/14/2025 1:00 PM EDT Office Visit [facility] ADULT DENTAL [address] [place], [place] [phone] Elo Mahoney [address] [place] [address] documented as of this encounter Visit Diagnoses Not on filedocumented in this encounter Additional Health Concerns Assessment Noted Time PHQ-9 Depression Total Score: 1 01/14/20 10:00 AM EDT documented as of this encounter Care Teams Oil Dipper Relationship Specialty Start Date End Date Maxwell, Bharati, MD [address] [place] [address] PCP - General Family Medicine 06/14/18 Vasyl Boles MD [address] [place] [phone] Gastroenterology 06/20/24 Amador Green MD [address] [place] [address] Rheumatology 09/18/24 documented as of this encounter
--- OUTSIDE RECORDS SUMMARY | 2024-09-21 15:11 | XMS_ITS | Encounter Summary ---
Author Organization [employer] Address 75 [facility] 7t [place] [address] Care Team Providers Care Campus Director Name Role Phone Bharati Soriano MD Primary Care Provider +1- [phone] Vasyl Bolse MD Unavailable [phone] Amador Green MD Unavailable [phone] Encounter Details Date Type Department Care Team (Late st Contact Info) Description 09/29/2023 Abstract [facility] MEDICINE [address] [place] [address] Bharati Soriano MD [address] [place], [place] [phone] Social History Tobacco Use Types Packs/Day Years [...] Description 12/19/2024 11:00 AM EDT Office Visit [facility] MEDICINE [address] [place] [address] 03/14/2025 1:00 PM EDT Office Visit [facility] ADULT DENTAL [address] [place] [address] Al Mahoneyaris [address] [place] [address] documented as of this encounter Procedures Procedure [...] documented as of this encounter Care Teams Campus Director Relationship Specialty Start Date End Date Bharati Soriano MD [address] [place] [address] PCP - General Family Medicine 06/14/18 Vasyl Boles MD [address] [place] [address] [address] [place] [address] Gastroenterology 06/20/24 Amador Green MD [address] [place] [address] Rheumatology 09/18/24 documented as of this encounter
--- OUTSIDE RECORDS SUMMARY | 2024-09-21 15:11 | XMS_ITS | Encounter Summary ---
Author Organization [employer] Address 75 [facility] 7t [place] [address] Care Team Providers Care Industrial Editor Name Role Phone Bharati Soriano MD Primary Care Provider [phone]- [phone] Vasyl Boles MD Unavailable [phone] Amador Green MD Unavailable [phone] Encounter Details Date Type Department Care Team (Late st Contact Info) Description 08/01/2024 Orders Only [facility] MEDICINE [address] [place], [place] [phone] Rosi Vergara MD [address] [place], [place] [phone] Primary hypertension; Chronic renal impairment, stage 2 [...] Description 12/19/2024 11:00 AM EDT Office Visit [facility] MEDICINE [address] [place] [address] 03/14/2025 1:00 PM EDT Office Visit [facility] ADULT DENTAL [address] [place] [address] Denzel, Elo [address] [place] [address] documented as of this encounter Visit Diagnoses Diagnosis Primary hypertension Unspecified essential hypertension Chronic renal impairment, stage 2 (mild) documented in this encounter Additional Health Concerns Assessment Noted Time PHQ-9 Depression Total Score: 1 01/14/20 24 10:00 AM EDT documented as of this encounter Care Teams Industrial Editor Relationship Specialty Start Date End Date Bharati Soriano MD [address] [place] [address] PCP - General Family Medicine 06/14/18 Vasyl Boles MD [address] [place] [phone] Gastroenterology 06/20/24 Amador Green MD [address] [place] [address] Rheumatology 09/18/24 documented as of this encounter
--- OUTSIDE RECORDS SUMMARY | 2024-09-21 15:11 | XMS_ITS | Encounter Summary ---
Author Organization [employer] Address [address] [place] [address] 7 [place] [address] Care Team Providers Care Cardiology Tech Name Role Phone Bharati Soriano MD Primary Care Provider +1- [phone] Vasyl Boles MD Unavailable [phone] Amador Green MD Unavailable [phone] Encounter Details Date Type Department Care Team (Latest Contact Info) Description 08/23/2019 Abstract [facility] CONVERSIONS Dental, Provider, [...] Office Visit [facility] MEDICINE [address] [place] [address] 03/14/2025 1:00 PM EDT Office Visit [facility] ADULT DENTAL [address] [place] [address] Denzel, Elo [address] [place] [address] documented as of this encounter Visit Diagnoses Not on filedocumented in this encounter Care Teams Cardiology Tech Relationship Specialty Start Date End Date Bharati Soriano MD [address] [place] [address] PCP - General Family Medicine 06/14/18 Vasyl Boles MD [address] [place] [phone] Gastroenterology 06/20/24 Amador Green MD [address] [place] [address] Rheumatology 09/18/24 documented as of this encounter
--- OUTSIDE RECORDS SUMMARY | 2024-09-21 15:11 | XMS_ITS | Encounter Summary ---
Author Organization [employer] Address [address] [place] [address] [address] [address] Care Team Providers Care Concrete Floor Installer Name Role Phone Bharati Soriano MD Primary Care Provider +1- [phone] Vasyl Boles MD Unavailable [phone] Amador Green MD Unavailable [phone] Reason for Referral * Consultation (Routine) - Closed Specialty Diagnoses / Procedures Referred By Enrrique tineo Referred To Contact Physical Therapy Diagnoses Chronic low back pain, unspecified back pain laterality, unspecified whether sciatica present Bharati Soriano MD [address] [place] [address] Phone: tel: fax: [facility] / , [address] Phone: tel: fax: Referral ID Status Reason Start Date Expiration Date V isits Requested Visits Authorized [id number] Closed Specialty Services Required 10/15/2023 10/14/2024 1 1 Encounter Details Date Type Department Care Team (Late st Contact Info) Description 10/15/2023 Orders Only [facility] MEDICINE [address] [place] [address] Bharati Soriano MD [address] [place], [place] [phone] Chronic low back pain, unspecified back pain [...] Description 12/19/2024 11:00 AM EDT Office Visit [facility] MEDICINE [address] [place] [address] 03/14/2025 1:00 PM EDT Office Visit [facility] ADULT DENTAL [address] [place] [address] Elo Mahoney [address] [place] [address] Scheduled Referrals Name Type Priority Associated Diagnoses [...] documented as of this encounter Care Teams Concrete Floor Installer Relationship Specialty Start Date End Date Bharati Soriano MD [address] [place] [address] PCP - General Family Medicine 06/14/18 Vasyl Boles MD [address] [place] [phone] Gastroenterology 06/20/24 Amador Green MD [address] [place] [address] Rheumatology 09/18/24 documented as of this encounter
--- OUTSIDE RECORDS SUMMARY | 2024-09-21 15:11 | XMS_ITS | Encounter Summary ---
Author Organization [employer] Address 75 [facility] 7t [place] [address] Care Team Providers Care Sales Representative [employer] Name Role Phone Bharati Soriano MD Primary Care Provider [phone]- [phone] Vasyl Boles MD Unavailable [phone] Amador Green MD Unavailable [phone] Reason for Visit * Reason Onset Date Comments Med Refill 03/31/2024 Encounter Details Date Type Department Care Team (Late st Contact Info) Description 03/31/2024 Telephone [facility] MEDICINE [address] [place], [place] [phone] Bharati Soriano MD 230 [place] [address] Med Refill Social History Tobacco Use Types [...] To be sent to: [facility]/pharmacy #[id number] [place] [address] - [address] [place] [address] documented in this encounter Plan of Treatment Upcoming Encounters Date Type Department Care Team (Late st Contact Info) Description 12/19/2024 11:00 AM EDT Office Visit [facility] MEDICINE [address] [place] [address] 03/14/2025 1:00 PM EDT Office Visit [facility] ADULT DENTAL [address] [place] [address] Elo Mahoney 230 [place] [address] documented as of this encounter Visit Diagnoses Not on filedocumented in this encounter Additional Health Concerns Assessment Noted Time PHQ-9 Depression Total Score: 1 01/14/20 10:00 AM EDT documented as of this encounter Care Teams Sales Representative [employer] Relationship Specialty Start Date End Date Fisher, Bharati, MD [address] [place] [address] PCP - General Family Medicine 06/14/18 Vasyl Boles MD [address] [place] [phone] Gastroenterology 06/20/24 Amador Green MD [address] [place] [address] Rheumatology 09/18/24 documented as of this encounter
--- OUTSIDE RECORDS SUMMARY | 2024-09-21 15:11 | XMS_ITS | Clinical Summary ---
Author Organization [facility] Address [address] [place] [address] Care Team Providers Care Licensing Analyst Name Role Phone Bharati Soriano MD [...] Diabetes: Hemoglobin A1C 08/01/2020 05/01/2020 Pneumococcal Vaccine: 50+ Years Completed 05/01/2020, 05/01/2020, 07/28/2018 Influenza Vaccine [...] Recently Relevant to Health Maintenance Care Teams Licensing Analyst Relationship Specialty Start Date End Date Bharati Soriano MD PCP - General 06/24/20
--- OUTSIDE RECORDS SUMMARY | 2024-09-21 15:11 | XMS_ITS | Encounter Summary ---
Author Organization [employer] Address 75 [facility] 7t [place] [address] Care Team Providers Care Supervisor [employer] Manufacturing Name Role Phone Bharati Soriano MD Primary Care Provider [phone]- [phone] Vasyl Boles MD Unavailable [phone] Amador Green MD Unavailable [phone] Encounter Details Date Type Department Care Team (Late st Contact Info) Description 09/19/2024 11:00 AM EDT Office Visit [facility] MEDICINE [address] [place] [address] Mily Alfredo, BRENDON [address] [place], [place] [phone] Chronic low back pain, unspecified back pain laterality, unspecified whether sciatica present (Primary Dx); MCFP (current) use of opiate analgesic Social History [...] - 09/19/2024 11:00 AM EDT Subjective: Sara Fink is a 68 y.o. [...] been beneficial. Specialists: reports receiving steroid injections [id number] (lumbar/SI) Functional Goals: would like to be [...] Screen (Completed) Drug Monitoring, Benzodiazepines, Quantitative, Urine MCFP (current) use of opiate analgesic Overview Medication: Percocet 5-325mg Q6H PRN Indication: lumbar radiculopathy Last [employer] Agreement: 07/11/24 Current Assessment & Plan Timeline: [...] Randall RN - 09/19/2024 11:00 AM EDT .[employer] veterinary technician assistant: PDMP reviewed today. Last fill date: 08/31/24 [...] Fleming - 09/19/2024 2:07 PM EDTAssociated Problem(s): MCFP (current) use of opiate analgesic Timeline: - [...] Description 12/19/2024 11:00 AM EDT Office Visit [facility] MEDICINE [address] [place] [address] 03/14/2025 1:00 PM EDT Office Visit [facility] ADULT DENTAL [address] [place] [address] Denzel Elo [address] [place] [address] Scheduled Orders Name Type Priority Associated Diagnoses Orde r Schedule Drug Monitoring, Benzodiazepines, Quantitative, Urine Lab Routine terminal carman (current) use of opiate analgesic Chronic low back pain, unspecified back pain laterality, unspecified whether sciatica present Ordered: 09/19/2024 documented as of this encounter Procedures Procedure Name Priority Date/Time Associated Diagnosis Comments POCT MADHU-14 URINE DRUG SCREEN Routine 09/19/2024 11:42 AM EDT terminal carman (current) use of opiate analgesic Chronic low back pain, unspecified back pain laterality, unspecified whether sciatica present POCT MADHU-14 URINE DRUG SCREEN Routine 09/19/2024 11:40 AM EDT MCFP (current) use of opiate analgesic Chronic low [...] - 09/19/2024 11:42 AM EDT .[employer] cup Lot#[id number] Exp. 01/31/26 Internal Pass Control Mily Alfredo [facility] POINT OF CARE TEST ENTER/EDIT ORDERABLES Final Result * (ABNORMAL) POCT MADHU-14 Urine Drug Screen (09/19/2024 11:40 AM EDT) Urine Urine specimen obtained by clean catch procedure / Unknown 09/19/2024 11:40 AM EDT Mily Alfredo [facility] POINT OF CARE TEST ENTER/EDIT ORDERABLES Final Result documented in this encounter Visit Diagnoses Diagnosis Chronic low back pain, unspecified back pain laterality, unspecified whether sciatica present- Primary MCFP (current) use of opiate analgesic documented in this encounter Additional Health Concerns Assessment Noted Time PHQ-9 Depression Total Score: 1 01/14/20 24 10:00 AM EDT documented as of this encounter Care Teams Supervisor [employer] Relationship Specialty Start Date End Date Bharati Soriano MD [address] [place] [address] PCP - General Family Medicine 06/14/18 Vasyl Boles MD [address] [place] [phone] Gastroenterology 06/20/24 Amador Green MD [facility] [place] [address] Rheumatology 09/18/24 documented as of this encounter
--- OUTSIDE RECORDS SUMMARY | 2024-09-21 15:11 | XMS_ITS | Encounter Summary ---
Author Organization [employer] Address 75 [facility] 7t [place] [address] Care Team Providers Care Framing Machine Tender Name Role Phone Bharati Soriano MD Primary Care Provider +1- [phone] Vasyl Boles MD Unavailable [phone] Amador Green MD Unavailable [phone] Reason for Visit * Reason Onset Date Comments Call Back Request 10/25/2023 Encounter Details Date Type Department Care Team (Late st Contact Info) Description 10/25/2023 Telephone [facility] MEDICINE [address] [place], [place] [phone] Bharati Soriano MD [address] [place] [address] Call Back Request Social History Tobacco Use [...] of every month. Please contact pt at [phone] documented in this encounter Plan of Treatment Upcoming Encounters Date Type Department Care Team (Late st Contact Info) Description 12/19/2024 11:00 AM EDT Office Visit [facility] MEDICINE [address] [place] [address] 03/14/2025 1:00 PM EDT Office Visit [facility] ADULT DENTAL [address] [place] [address] Elo Mahoney [address] [place] [address] documented as of this encounter Visit Diagnoses Not on filedocumented in this encounter Additional Health Concerns Assessment Noted Time PHQ-9 Depression Total Score: 0 10/16/19 23 2:27 PM EDT documented as of this encounter Care Teams Framing Machine Tender Relationship Specialty Start Date End Date Bharati Soriano MD [address] [place] [address] PCP - General Family Medicine 06/14/18 Vasyl Boles MD [address] [place] [phone] Gastroenterology 06/20/24 Amador Green MD [address] [place] [address] Rheumatology 09/18/24 documented as of this encounter
== END 2024-09-21 12:44 | disposition home or self-care (01) ==
LOC: HO.MAMMO 12:43
PROVIDERS: PCP Family Medicine; Visit Provider Family Medicine
DX: Z13.89 Encounter for screening for other disorder (principal)

== ENCOUNTER 2024-10-17 13:34 | Outpatient (AMB) | payer MEDICARE, MEDICAID, SELFPAY ==
[2024-10-17 13:40] VITALS: BP 106/76; PULSE 74; O2SAT 99; BMI 25.2
--- NOTE | 2024-10-17 13:40 | MHC.OFFVIS ---
Vital Signs 10/17/24 13:40 Height 5 ft Weight 129 lb BMI 25.2 BP 106/76 Blood Pressure Location Lt brachial Position Sitting Pulse 74 Pulse Source Pulse Oximeter Pulse Oximetry (%) 99 Oxygen Delivery Method Room Air Intake Visit Reasons: Osteoporosis Intake Note: Patient presents for osteoporosis, her PCP, Bharati Soriano, sent a referral. Allergies aspirin [ASPIRIN] Allergy (Severe, Verified 10/17/24 13:46) GI BLEED, severe bleeding NSAIDS (Non-Steroidal Anti-Inflamma [NSAIDS (NON-STEROIDAL ANTI-INFLAMMA] Allergy (Severe, Verified 10/17/24 13:46) GI BLEED simvastatin [Simvastatin] Allergy (Severe, Verified 10/17/24 13:46) SEVERE DIARRHEA/RECTAL BLEED/MUSCLE PAIN, upset stomach and pain lisinopril [Lisinopril] Adverse Reaction (Mild, Verified 10/17/24 13:46) COUGH, throat scratching metoprolol [From Toprol XL] Adverse Reaction (Mild, Verified 10/17/24 13:46) COUGHING any blood thinners Allergy (Severe, Uncoded 10/17/24 13:46) severe bleeding Medication List - Last Reconciled 10/17/24 by Babak Sparks MD acetaminophen (Tylenol) 650 mg PO Q6H PRN albuterol sulfate 90 mcg/actuation 2 puffs inhalation Q6H PRN alendronate (Fosamax) 70 mg PO QWEEK amlodipine (Norvasc) 2.5 mg PO DAILY cholecalciferol (vitamin D3) 25 mcg PO DAILY docusate sodium (Colace) 100 mg PO DAILY hydroxychloroquine 200 mg PO DAILY losartan 25 mg PO DAILY omeprazole 20 mg PO DAILY oxycodone-acetaminophen 5-325 mg (Percocet) 1 tab PO Q8H PRN pravastatin 20 mg PO DAILY trazodone 100 mg PO BEDTIME PRN HPI Comments Details: 68 YO Female is seen in consultation at the request of PCP for Osteoporosis. First diagnosed in 1 mo ago . Received treatment in the past with alendronate , started 5+ yrs ago Tolerated treatment well without complication. No history of pathologic fracture or ONJ. Has several servings of dietary calcium per day in the form of cheese . Not Takes Calcium supplement . Not Takes 1000 IU of Vitamin D daily. Takes PPI, -anticoagulant, -antiepileptic or -glucocorticoid medication. Not Does weight bearing exercise Fracture history: No Height loss: Yes PLAN EXAMINER history: Menarche at age 9 - Menopause hysterectomy at 50s - ab menses due to bleeding cyst Denies history of Kidney stones: Has family history of Osteoporosisin mother but no hip fracture. UTD on dental cleanings and sees dentist every 6 months. No planned upcoming dental work or extractions. DXA dated 08/22/24 : INDINGS: The bone mineral density of the lumbar spine is 1.116 with a T-score of -0.5, and a Z-score of 1.4. This represents a BMD change of 12.2% compared to the prior exam. This is statistically significant. The bone mineral density of the left total hip is 0.649 with a T-score of -2.8, and a Z-score of -1.2. This represents a BMD change of -2.1% compared to the prior exam. This is not statistically significant. The bone mineral density of the left femoral neck is 0.651 with a T-score of -2.8, and a Z-score of -0.9. This represents a BMD change of -4.0% compared to the prior exam. FRACTURE RISK: The FRAX index suggests a ten year probability of major osteoporotic fracture of 10.0%, and of hip fracture 3.0%. MM/XR DEXA axial skeleton IMPRESSION: Based on bone mineral density, and according to World Health Organization (WHO) criteria, the diagnosis is consistent with osteoporosis. Labs: [facility] Medical History (Updated 10/17/24 @ 13:48 by Babak Sparks MD) Raynauds disease Osteoporosis Asthma HTN (hypertension) Vitamin D deficiency Colon polyps IBS (irritable bowel syndrome) Diverticulosis Anal cancer Lupus (systemic lupus erythematosus) Surgical History Hx of hysterectomy History of dilatation and curettage H/O abdominoplasty History of appendectomy Family History Mother HTN (hypertension) Osteoporosis Social History Alcohol intake: current Alcohol intake frequency: former alcohol drinker Patient Tobacco Use Status: Never used Tobacco Physical Exam There are no Cushingoid features. Absence of blue sclera. Absence of kyphosis. Thyroid gland is of nl size and weighs 15 gms. There are no thyroid nodules palpated. Lungs CTA. Heart S1 S2 Reg R/R Abdominal exam benign. Muscle strength 5/5 . Examination of spine reveals absence of tenderness on palpation Assessment & Plan Assessment & Plan (1) Osteoporosis: Code(s): M81.0 - Age-related osteoporosis without current pathological fracture Category: Medical Plan: 68-year-old female with a history of osteoporosis with partial secondary workup. Currently being treated with alendronate Plan is to complete the secondary workup by checking 24 hour urine for calcium and creatinine, phosphorus, urine immunofixation as well as urine NTX. Will ensure 1200 mg of calcium and continue vitamin-D supplementation. Would continue bisphosphonate therapy for now. If urine NTX is suppressed, may consider a drug holiday and could possibly reinitiate the bisphosphonate or Prolia in the future. If urine NTX is elevated, may consider transitioning to Prolia Orders: Orders Phosphorus Today M81.0 - Age-related osteoporosis without current pathological fracture Calcium, 24 Hr Ur Today M81.0 - Age-related osteoporosis without current pathological fracture Creatinine, 24 Hr Group Today M81.0 - Age-related osteoporosis without current pathological fracture Immunofixation, Random Urine Today M81.0 - Age-related osteoporosis without current pathological fracture Collagen Crosslinks NTX Today M81.0 - Age-related osteoporosis without current pathological fracture Medications: Refilled cholecalciferol (vitamin D3) 25 mcg PO DAILY 90 caps 1RF Coding Level of Care Code New Pt Level 4 (46110) Diagnoses Osteoporosis M81.0
--- OUTSIDE RECORDS SUMMARY | 2024-10-17 14:53 | XMS_ITS | Encounter Summary ---
Author Organization [employer] Address [address] [place] [address] 7t [place] [address] Care Team Providers Care Fish Farm Manager Name Role Phone Bharati Soriano MD Primary Care Provider Vasyl Boles MD Unavailable Amador Green MD Unavailable [phone] Babak Sparks MD Unavailable Encounter Details Date Type Department Care Team (Late st Contact Info) Description 08/11/2022 Abstract [facility] MEDICINE [address] [place] [address] Bharati Soriano MD [address] [place] [address] [phone] Social History Tobacco Use Types Packs/Day Years [...] Description 12/19/2024 11:00 AM EDT Office Visit [address] [phone] 01/17/2025 3:15 PM EDT Office Visit [address] [phone] Bharati Soriano MD [address] [place], [place] [phone] 03/14/2025 1:00 PM EDT Office Visit [facility] ADULT DENTAL 230 [place], [place] [phone] Elo Mahoney 230 [place] [address] documented as of this encounter Procedures Procedure Name Priority Date/Time Associated Diagnosis Comments PAP SMEAR Routine 03/14/2015 12:00 AM EDT documented in this encounter Results * Pap Smear (03/14/2015 12:00 AM EDT) Swab us Historical Provider LAB CYTOLOGY ORDERABLES F inal Result IMAGING documented in this encounter Visit Diagnoses Not on filedocumented in this encounter Care Teams Fish Farm Manager Relationship Specialty Start Date End Date Bharati Soriano MD [address] [place] [address] PCP - General Family Medicine 06/14/18 Vasyl Boles MD [address] [place] [address] [address] [place] [phone] Gastroenterology 06/20/24 Amador Green MD [address] [place] [address] Rheumatology 09/18/24 Babak Sparks MD [address] [place] [address] Drive [address] [place], [place] [phone] Endocrinology 10/17/24 documented as of this encounter
--- OUTSIDE RECORDS SUMMARY | 2024-10-17 14:53 | XMS_ITS | Encounter Summary ---
Author Organization [employer] Address [address] [facility] 7t [place] [address] Care Team Providers Care Web Designer Developer Name Role Phone Bharati Soriano MD Primary Care Provider [phone] Vasyl Boles MD Unavailable Amador Green MD Unavailable Babak Sparks MD Unavailable [phone] Encounter Details Date Type Department Care Team (Latest Contact Info) Description 03/16/2022 Abstract [facility] CONVERSIONS Dental, Provider, DDS Social History [...] 11:00 AM EDT Office Visit [facility] MEDICINE [address] [place] [address] 01/17/2025 3:15 PM EDT Office Visit [facility] MEDICINE [address] [place] [address] Bharati Soriano MD [address] [place] [address] 03/14/2025 1:00 PM EDT Office Visit [facility] ADULT DENTAL [address] [place] [address] Elo Mahoney [address] [place] [address] documented as of this encounter Visit Diagnoses Not on filedocumented in this encounter Care Teams Web Designer Developer Relationship Specialty Start Date End Date Bharati Soriano MD 230 [place] [address] PCP - General Family Medicine 06/14/18 Vasyl Boles MD [address] [place] [address] DR [facility] [address] [place] [phone] Gastroenterology 06/20/24 Amador Green MD [address] [place] [address] Rheumatology 09/18/24 Babak Sparks MD [address] [place] [address] Drive [address] [place] [address] Endocrinology 10/17/24 documented as of this encounter
--- OUTSIDE RECORDS SUMMARY | 2024-10-17 14:53 | XMS_ITS | Encounter Summary ---
Author Organization [employer] Address [address] [place] [address] [place] [address] Care Team Providers Care Mortuary Technician Name Role Phone Bharati Soriano MD Primary Care Provider [phone] Vasyl Boles MD Unavailable [phone] Amador Green MD Unavailable [phone] Babak Sparks MD Unavailable [phone] Reason for Referral * Consultation (Routine) - Closed Specialty Diagnoses / Procedures Referred By Contac t Referred To Contact Physical Therapy Diagnoses Chronic low back pain, unspecified back pain laterality, unspecified whether sciatica present Bharati Soriano MD [address] [place] [address] Phone: tel: fax: [facility] / , [address] Phone: tel: fax: Referral ID Status Reason Start Date Expiration Date V isits Requested Visits Authorized [id number] Closed Specialty Services Required 10/15/2023 10/14/2024 1 1 Encounter Details Date Type Department Care Team (Late st Contact Info) Description 10/15/2023 Orders Only [facility] MEDICINE [address] [place] [address] Bharati Soriano MD [address] [place], [place] [phone] Chronic low back pain, unspecified back pain [...] Visit [facility] MEDICINE [address] [place] [address] 01/17/2025 3:15 PM EDT Office Visit [facility] MEDICINE [address] [place] [address] Bharati Soriano MD [address] [place] [address] 03/14/2025 1:00 PM EDT Office Visit [facility] ADULT DENTAL [address] [place] [address] Elo Mahoney [address] [place], [place] [phone] Scheduled Referrals Name Type Priority Associated Diagnoses [...] documented as of this encounter Care Teams Mortuary Technician Relationship Specialty Start Date End Date Bharati Soriano MD [address] [place] [address] PCP - General Family Medicine 06/14/18 Vasyl Boles MD [address] [place] [address] DR [facility] [address] [place] [address] Gastroenterology 06/20/24 Amador Green MD [address] [place] [address] Rheumatology 09/18/24 Babak Sparks MD [address] [place] [address] Drive [address] [place] [address] Endocrinology 10/17/24 documented as of this encounter
--- OUTSIDE RECORDS SUMMARY | 2024-10-17 14:53 | XMS_ITS | Encounter Summary ---
Author Organization [employer] Address [address] [place] [address] 7t [place] [address] Care Team Providers Care National Dedicated Truck Driver Name Role Phone Bharati Soriano MD Primary Care Provider [phone] Vasyl Boles MD Unavailable Amador Green MD Unavailable [phone] Babak Sparks MD Unavailable Reason for Visit * Reason Comments Med Refill Encounter Details Date Type Department Care Team (Late st Contact Info) Description 11/17/2022 Refill [facility] MEDICINE [address] [place], [place] [phone] Bharati Soriano MD [address] [place], [place] [phone] Wheeze Social History Tobacco Use Types Packs/Day [...] 12/19/2024 11:00 AM EDT Office Visit [facility] MEDICINE [address] [place] [address] 01/17/2025 3:15 PM EDT Office Visit [facility] MEDICINE [address] [place] [address] Bharati Soriano MD 230 [place] [address] 03/14/2025 1:00 PM EDT Office Visit [facility] ADULT DENTAL [address] [place] [address] Denzel Leo [address] [place] [address] documented as of this encounter Visit Diagnoses Diagnosis Wheeze Wheezing documented in this encounter Additional Health Concerns Assessment Noted Time PHQ-9 Depression Total Score: 0 10/16/19 23 2:27 PM EDT documented as of this encounter Care Teams National Dedicated Truck Driver Relationship Specialty Start Date End Date Bharati Soriano MD [address] [place] [phone] PCP - General Family Medicine 06/14/18 Vasyl Boles MD [address] [place] [address] [address] [place] [address] Gastroenterology 06/20/24 Amador Green MD [address] [place] [address] Rheumatology 09/18/24 Babak Sparks MD [address] [place] [address] Drive [address] [place] [address] Endocrinology 10/17/24 documented as of this encounter
--- OUTSIDE RECORDS SUMMARY | 2024-10-17 14:53 | XMS_ITS | Encounter Summary ---
Author Organization [employer] Address [address] [facility] 7t [place] [address] Care Team Providers Care Acid Condenser Name Role Phone Bharati Soriano MD Primary Care Provider [phone] Vasyl Boles MD Unavailable Amador Green MD Unavailable [phone] Babak Sparks MD Unavailable Reason for Visit * Reason Comments Med Change Request Encounter Details Date Type Department Care Team (Late st Contact Info) Description 09/08/2022 Refill [facility] MEDICINE [address] [place], [place] [phone] Bharati Soriano MD [address] [place], [place] [phone] Social History Tobacco Use Types Packs/Day Years [...] 12/19/2024 11:00 AM EDT Office Visit [facility] MEDICINE [address] [place] [address] 01/17/2025 3:15 PM EDT Office Visit [facility] MEDICINE [address] [place] [address] Bharati Soriano MD [address] [place] [address] 03/14/2025 1:00 PM EDT Office Visit [facility] ADULT DENTAL [address] [place] [address] Denzel, Elo [address] [place] [address] documented as of this encounter Visit Diagnoses Not on filedocumented in this encounter Care Teams Acid Condenser Relationship Specialty Start Date End Date Bharati Soriano MD [address] [place] [address] PCP - General Family Medicine 06/14/18 Vasyl Boles MD [address] [place] [address] [address] [facility] [address] [place] [address] Gastroenterology 06/20/24 Amador Green MD [address] [place] [address] Rheumatology 09/18/24 Babak Sparks MD [address] [place] [address] Drive [address] [place] [address] Endocrinology 10/17/24 documented as of this encounter
--- OUTSIDE RECORDS SUMMARY | 2024-10-17 14:53 | XMS_ITS | Encounter Summary ---
Author Organization [employer] Address [address] [place] [address] 7t [place] [address] Care Team Providers Care Steel Post Installer Supervisor Name Role Phone Bharati Soriano MD Primary Care Provider [phone] Vasyl Boles MD Unavailable Amador Green MD Unavailable Bbaak Sparks MD Unavailable Reason for Visit * Reason Onset Date Comments Other 11/03/2022 Encounter Details Date Type Department Care Team (Late st Contact Info) Description 11/03/2022 Telephone [facility] MEDICINE 230 [place], [place] [phone] Bharati Soriano MD [address] [place], [place] [phone] Other Social History Tobacco Use Types Packs/Day [...] EDT Tc from patient returning call back, 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 documented in this encounter Plan of Treatment Upcoming Encounters Date Type Department Care Team (Late st Contact Info) Description 12/19/2024 11:00 AM EDT Office Visit [facility] MEDICINE 230 [place] [address] 01/17/2025 3:15 PM EDT Office Visit [facility] MEDICINE [address] [place] [address] Bharati Soriano MD [address] [place] [address] 03/14/2025 1:00 PM EDT Office Visit [facility] ADULT DENTAL 230 [place] [address] Denzel, Elo [address] [place] [address] documented as of this encounter Visit Diagnoses Not on filedocumented in this encounter Additional Health Concerns Assessment Noted Time PHQ-9 Depression Total Score: 0 10/16/19 23 2:27 PM EDT documented as of this encounter Care Teams Steel Post Installer Supervisor Relationship Specialty Start Date End Date Bharati Soriano MD [address] [place] [address] PCP - General Family Medicine 06/14/18 Vasyl Boles MD [address] [place] [address] Gastroenterology 06/20/24 Amador Green MD [address] [place] [address] Rheumatology 09/18/24 Babak Sparks MD [address] [facility] [address] [place] [address] Endocrinology 10/17/24 documented as of this encounter
--- OUTSIDE RECORDS SUMMARY | 2024-10-17 14:53 | XMS_ITS | Encounter Summary ---
Author Organization [employer] Address [address] [facility] 7t [place] [address] Care Team Providers Care Alligator Trapper Name Role Phone Bhaarti Soriano MD Primary Care Provider [phone] Vasyl Boles MD Unavailable Amador Green MD Unavailable [phone] Babak Sparks MD Unavailable [phone] Reason for Visit * Reason Comments Med Refill Encounter Details Date Type Department Care Team (Late st Contact Info) Description 07/16/2024 Refill [facility] MEDICINE 230 [place], [place] [phone] Bharati Soriano MD [address] [place], [place] [phone] Mild intermittent asthma, unspecified whether complicated; Acquired [...] Visit [facility] MEDICINE [address] [place] [address] 01/17/2025 3:15 PM EDT Office Visit [facility] MEDICINE [address] [place] [address] Bharati Soriano MD [address] [place] [address] 03/14/2025 1:00 PM EDT Office Visit [facility] ADULT DENTAL [address] [place] [address] Elo Mahoney [address] [place] [address] documented as of this encounter Visit Diagnoses Diagnosis Mild intermittent asthma, unspecified whether complicated Acquired hypothyroidism Unspecified hypothyroidism documented in this encounter Additional Health Concerns Assessment Noted Time PHQ-9 Depression Total Score: 1 01/14/20 24 10:00 AM EDT documented as of this encounter Care Teams Alligator Trapper Relationship Specialty Start Date End Date Bharati Soriano MD [address] [place] [address] PCP - General Family Medicine 06/14/18 Vasyl Boles MD [address] [place] [address] [address] [facility] [address] [place] [address] Gastroenterology 06/20/24 Amador Green MD [address] [place] [address] Rheumatology 09/18/24 Babak Sparks MD [address] [place] [address] Drive [address] [place] [address] Endocrinology 10/17/24 documented as of this encounter
--- OUTSIDE RECORDS SUMMARY | 2024-10-17 14:53 | XMS_ITS | Clinical Summary ---
Author Organization [employer] Address [address] [facility] [address] [place] [address] Care Team Providers Care Riveting Machine Operator Tape Control Name Role Phone Bharati Soriano MD Primary Care Provider [phone] Vasyl Boles MD Unavailable Amador Green MD Unavailable [phone] Babak Sparks MD Unavailable Allergies Active Allergy Reactions Criticality Noted Date [...] mg by mouth Once per day. Active pravastatin (Pravachol) 20 MG tabletIndications :Dyslipidemia [...] TAKING MEDICATION 12 tablet 3 024 Active clotrimazole (Lotrimin) 1 % vaginal creamIndications: [...] Active losartan (Cozaar) 25 MG tabletIndications :Primary hypertension,Yeast Pusher mayte renal impairment, stage 2 (mild) Take 1 tablet (25 mg) by mouth 2 times daily. 90 tablet 3 025 Active albuterol (Ventolin HFA) 108 (90 Base) MCG/ACT inhalerIndication s:Mild intermittent asthma, unspecified whether complicated TAKE 2 PUFFS BY MOUTH EVERY 4-6 HOURS NEEDED 18 g 1 025 Active levothyroxine (Synthroid, Levoxyl) 25 MCG tabletIndications :Acquired hypothyroidism TAKE 1 TABLET BY MOUTH EVERY DAY 90 tablet 3 025 Active loperamide (Imodium) 2 MG capsuleIndication s:Chronic diarrhea TAKE 1 CAPSULE (2 MG) BY MOUTH EVERY 6 (SIX) HOURS IF NEEDED FOR DIARRHEA. 30 capsule 025 Active omeprazole (PriLOSEC) [address] capsuleIndication s:Gastroesophagea l reflux disease without esophagitis TAKE 1 CAP (20 MG) BY MOUTH BEFORE BREAKFAST DO NOT CRUSH, CHEW, OR SPLIT 90 capsule 1 025 Active oxyCODONE-acetami nophen (Percocet) 5-325 MG tabletIndications :Pain Take 1 tablet by mouth every 6 (six) hours if needed for severe pain. 84 tablet 025 Active omeprazole (PriLOSEC) [address] capsuleIndication s:Gastroesophagea l reflux disease without esophagitis TAKE 1 CAP (20 MG) BY MOUTH BEFORE BREAKFAST DO NOT CRUSH, CHEW, OR SPLIT 90 capsule 1 024 2024 Discontinued loperamide (Imodium) 2 MG capsuleIndication s:Chronic diarrhea TAKE 1 CAPSULE (2 MG) BY MOUTH EVERY 6 (SIX) HOURS IF NEEDED FOR DIARRHEA. 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 Utox positive BZO, confirmatory testing sent out Assessment & Plan (07/13/2024 4:18 PM EST): Medication: Percocet 5-325mg Q6H PRN Indication: lumbar radiculopathy Last COLOR WEIGHER Agreement: 08/24/23 Assessment & Plan (04/04/2024 5:26 [...] Overview (07/12/2024): Lab Results Component Value Date [id number] 35.8 04/26/2024 Insomnia 12/22/2023 Normal oral exam 05/12/2023 Overview (05/12/2023): -Normal growth and development. -Anticipatory guidance discussed. -Preventative care / harm reduction discussed. Assessment & Plan (05/12/2023 10:18 AM EST): -Normal growth and development. -Anticipatory guidance discussed. -Preventative care / harm reduction discussed. Other specified health status 04/24/2023 Overview (07/12/2024): -next comprehensive annual evaluation due after 07/12/25 -eye care facilitated by [facility] -dental home is [facility] -Health care proxy given and filed 12/22/23 Assessment & Plan (07/12/2024 4:10 PM EST): -next comprehensive annual evaluation due after 07/12/25 -eye care facilitated by [facility] -dental home is [facility] -Health care proxy given and filed 12/22/23 Assessment & Plan (12/22/2023 2:27 PM EDT): -next physical exam due after 05/12/2024 -eye care facilitated by [facility] -dental home is [facility] -Health care proxy given and filed [...] Sicca symptoms, positive LUISITO, 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 Followed by rheumatology. Lat note from Amador Green from 09/14/24 reviewed. 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 Followed by rheumatology. Lat note from Dr. Flores 04/06/23 reviewed. 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 Followed by rheumatology. Lat note from Dr. Flores 04/06/23 reviewed. 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 Followed by rheumatology. Lat note from Dr. Flores 04/06/23 reviewed. 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 Followed by rheumatology. -Plaquenil 200mg BID started 04/2018 -continue regular eye exams -s/p flu vaccine 02/2020 done at [facility] -[facility] 23 04/2019 Chronic diarrhea 05/08/2022 Osteoporosis 05/08/2022 Overview (10/17/2024): Final Menstrual Period: > 10 years ago -DEXA 08/21/24Results: MM/XR DEXA axial skeleton IMPRESSION: Based on bone mineral density, and according to World Health Organization (WHO) criteria, the diagnosis is consistent with steoporosis. Symptoms: none Risk factors for osteoporosis: postmenopausal -Ca+D supplements 1200 mg po qd/800 MIU -Weight bearing exercises -Adequate protein intake -Supplements may include magnesium, omega-3 -continue fosamax -seen by Dr. Sparks 10/17/24 Plan is to complete the secondary workup by checking 24 hour urine for calcium and creatinine, phosphorus, urine immunofixation as well as urine NTX. Will ensure 1200 mg of calcium and continue vitamin-D supplementation. Would continue bisphosphonate therapy for now. If urine NTX is suppressed, may consider a drug holiday and could possibly reinitiate the bisphosphonate or Prolia in the future. If urine NTX is elevated, may consider transitioning to Prolia Assessment & Plan (07/12/2024 4:15 PM EST): [...] opioid. Confirmatory testing sent to lab. See mechanical systems engineer. Assessment & Plan (07/12/2024 4:09 PM EST): [...] -UTOX and pill count as expected. See mechanical systems engineer for further details -Encouraged to cont with [...] Problem Noted Date Diagnosed Date Resolved Date Crowded teeth 09/07/2024 10/04/2024 Dental plaque 09/07/2024 10/04/2024 Excessive attrition of teeth , limited to enamel 09/07/2024 10/04/2024 Tremor 05/08/2022 05/11/2022 Dyspnea 11/11/2017 05/08/2022 Palpitations 11/11/2017 07/12/2024 Dislocation of temporomandibular joint 12/06/2012 04/24/2023 Encounters Date Type Department Care Team Description 10/11/2024 Telephone [facility] MEDICINE [address] [place] [phone] Bharati Soriano MD December Recalls 10/11/2024 Travel 10/05/2024 Orders Only [facility] MEDICINE [address] [place] [phone] Bharati Soriano MD Osteoporosis, unspecified osteoporosis type, unspecified pathological fracture presence (Primary Dx) 10/04/[address] [address] Bharati Soriano MD DEXA results 10/03/2024 Refill [facility] MED & PEDS [address] [place] [address] Jocelyn Randall, RN Pain 09/29/[address] [address] Bharati Soriano MD Med Refill 09/25/2024 Refill [facility] MEDICINE [address] [place] [phone] Bharati Soriano MD Chronic diarrhea; Gastroesophageal reflux disease without esophagitis 09/19/2024 11:00 AM EDT Office Visit [facility] MEDICINE [address] [place] [phone] Mily Alfredo, BRENDON Chronic low back pain, unspecified back pain laterality, unspecified whether sciatica present (Primary Dx); [facility] (current) use of opiate analgesic 09/19/2024 Travel 09/07/2024 1:00 PM EDT Office Visit [facility] ADULT DENTAL [address] [place] [address] Elo Mahoney Crowded teeth (Primary Dx); Dental plaque; Excessive attrition of teeth, limited to enamel; Normal oral exam 09/07/2024 Refill [facility] MEDICINE [address] [place] [address] Bharati Soriano MD Mild intermittent asthma, unspecified whether complicated; Acquired hypothyroidism 09/06/2024 Telephone [facility] MEDICINE [address] [place] [address] Bharati Soriano MD Durable Medical Equipment 09/04/2024 Telephone [facility] MEDICINE [address] [place] [address] Bharati Soriano MD DME from [employer] 08/31/2024 Telephone [facility] MEDICINE [address] [place] [address] Bharati Soriano MD [employer] (Underwear, prevail nu-fit med) 08/31/2024 Refill [facility] MEDICINE [address] [place] [phone] Bharati Soriano MD Pain 08/25/2024 Population Health Risk Score [facility] () Department [address] [place] [address] [phone] Provider, Population Health Generic 08/09/2024 Telephone [facility] MEDICINE [address] [place] [phone] Bharati Soriano MD 08/02/2024 Orders Only [facility] MEDICINE [address] [place] [address] Bharati Soriano MD Primary hypertension; Chronic renal impairment, stage 2 (mild) 08/01/2024 Orders Only [facility] MEDICINE [address] [place] [address] Rosi Vergara MD Primary hypertension; Chronic renal impairment, stage 2 (mild) 08/01/2024 Orders Only [facility] MEDICINE [address] [place] [phone] Bharati Soriano MD Primary hypertension; Chronic renal impairment, stage 2 (mild) 07/30/2024 Refill [facility] MEDICINE [address] [place] [address] Bharati Soriano MD Gastroesophageal reflux disease without esophagitis 07/26/2024 Refill [facility] MEDICINE [address] [place] [address] Bharati Soriano MD Pain 07/24/2024 Telephone [facility] MEDICINE [address] [place], [place] [phone] Bharati Soriano MD Prior Authorization (Lidocaine 5% patch) from Last 3 Months Immunizations Name Administration [...] Description 12/19/2024 11:00 AM EDT Office Visit [facility] MEDICINE [address] [place] [address] 01/17/2025 3:15 PM EDT Office Visit [facility] MEDICINE [address] [place] [phone] Bharati Soriano MD [address] [place] [address] 03/14/2025 1:00 PM EDT Office Visit [facility] ADULT DENTAL [address] [place] [address] Al Mahoneyaris [address] [place] [address] Health Maintenance Due Date Last Done Comments [...] Tobacco Screening 09/07/2025 09/07/2024 Mammogram 09/28/2025 09/29/2023, 04, 09/16/2022, Additional history exists Colonoscopy 03/30/2027 03/30/2022 [...] Comments DRUG MONITORING, BENZODIAZEPINES, QUANTITATIVE, URINE Routine 09/19/2024 12:49 PM EDT 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 Chronic low back pain, unspecified back pain laterality, unspecified whether sciatica present POCT MADHU-14 URINE DRUG SCREEN Routine 09/19/2024 11:42 AM EDT [facility] (current) use of opiate [...] EST Chronic type B viral hepatitis (CMS/HCC) LIPID PANEL, STANDARD Routine 04/26/2024 10:02 AM EST Dyslipidemia HM MAMMOGRAPHY Routine 09/29/2023 11:17 AM EDT HM COLONOSCOPY Routine 03/30/2022 HEPATITIS C ANTIBODY (EXTERNAL RESULTS ONLY) Routine 03/18/2018 2:33 PM EDT from Last 3 Months or Most Recently Relevant to Health Maintenance Results * Drug Monitoring, Benzodiazepines, Quantitative, Urine (09/19/2024 12:49 PM EDT) Nordiazepam, GCMS Urine NEGATIVE [facility] Comment:REFERENCE RANGE: <50 ng/mL Oxazepam, GCMS Urine NEGATIVE [facility] Comment:REFERENCE RANGE: <50 ng/mL Lorazepam GCMS Urine NEGATIVE [facility] Comment:REFERENCE RANGE: <50 ng/mL Alprazolam, GCMS Urine NEGATIVE [facility] Comment:REFERENCE RANGE: <25 ng/mL Alphahydroxytriazolam, GCMS Ur NEGATIVE [facility] Comment:REFERENCE RANGE: <50 ng/mL Temazepam, GCMS Urine NEGATIVE [facility] Comment:REFERENCE RANGE: <50 ng/mL Alphahydroxymidazolam,GC MS Ur NEGATIVE [facility] Comment:REFERENCE RANGE: <50 ng/mL Aminoclonazepam, GCMS Urine NEGATIVE [facility] Comment:REFERENCE RANGE: <25 ng/mL Flurazepam Metabolite,GCMS Ur NEGATIVE [facility] Comment:REFERENCE RANGE: <50 ng/mL Benzodiazepines Comments SEE NOTE [facility] Comment:This drug testing is for medical treatment only. Analysiswas performed as non-forensic testing and these resultsshould be used only by healthcare providers to renderdiagnosis or treatment, or to monitor progress of medicalconditions.LDT Notes:Confirmation tests were developed and their analyticalperformance characteristics have been determined by [employer]. It has not been cleared or approved by the FDA.This assay has been validated pursuant to the CLIAregulations and is used for clinical purposes.Healthcare Providers needing Interpretation assistance,please contact us at [phone] ( ) M-F,8am to 10pm EST Urine (Urine, Random) 09/19/2024 12:49 PM EDT 09/19/2024 4:56 PM EDT us Bharati Soriano MD LAB URINE ORDERABLES Final Result [facility] [address] [place] [address] [phone] * (ABNORMAL) POCT MADHU-14 Urine Drug Screen (09/19/2024 11:42 AM EDT) Only the most recent of2 resultswithin the time period is included. THC Positive Benzodiazepines Screen, Urine Positive Oxycodone Screen, Urine Positive Urine Urine specimen obtained by clean catch procedure / Unknown 09/19/2024 11:42 AM EDT Narrative Jocelyn Randall RN - 09/19/2024 11:42 AM EDT .UTOX cup Lot#[id number] Exp. 01/31/26 Internal Pass Control us Mily Juni RESERVOIR ENGINEERING MANAGER POINT OF CARE TEST ENTER/EDIT ORDERABLES Final Result * Referral to Rheumatology (09/11/2024) us Bharati Soriano MD OUTPATIENT REFERRAL ORDERA BLES Final Result * BD DEXA Axial (08/22/2024 11:00 AM EDT) Anatomical Region Laterality Modality Body Radiographic Na ging 08/22/2024 11:0 0 AM EDT Narrative 08/22/2024 12:56 PM EDT ? [facility] [place] ? [address] ?[place] [address] ? Mammography Report ? Signed ? Patient: Fink Fink,Sara ?MR#: ?? [id number] ? : 1955 ?Acct:[id number] ? Age/Sex: 68 / F ?ADM Date: 03/11/25 ? Loc: HO.MAMMO ? Attending Dr: Bharati Soriano MD ? Ordering Physician: Bharati Soriano MD ?Results: ? Date of Service: //25 ?Follow Up: ? Procedure(s): XR DEXA axial skeleton ?? Accession Number(s): [id number] ? cc: Bharati Soriano MD ? EXAMINATION: ??DXA BONE DENSITY AXIAL ? HISTORY: ??Estrogen deficiency ? TECHNIQUE: [employer] Dual energy absorptiometry (DEXA) ?? of the [...] the [employer]'s ?? [place] for Metabolic Bone Disease, a World Health Organization (WHO) ?? Collaborating Center. ? Electronically signed by: ??Babak Mccrary MD ??08/22/2024 12:53 PM EDT ?? RP ? Dictated By: ?Babak Mccrary MD ? Signed By: ?<Electronically signed by Babak Mccrary MD in OV> ?08/22/24 1253 ? DD/ 1100 ? TD/TT: 08/22/24 1110 ? Automatic Coil Machine Operator: ? Procedure Note Donotuseinterpreter, Image - 08/22/2024 [place] [facility] [address] [place], [place] [address] Mammography Report Signed Patient: Davis LancasteradMR#: [id number] : 4Acct:[id number] Age/Sex: 68 / FADM Date: 08/22/24 Loc: HO.MAMMO Attending Dr: Bharati Soriano MD Ordering Physician: Bharati Sorianoults: Date of Service: 08/22/24Follow Up: Procedure(s): XR DEXA axial skeleton Accession Number(s): [id number] cc: Bharati Soriano MD EXAMINATION: DXA BONE DENSITY AXIAL HISTORY: Estrogen deficiency TECHNIQUE: [employer] Dual energy absorptiometry (DEXA) of the lumbar [...] is a trademark of the [employer]'s [place] for Metabolic Bone Disease, a World Health Organization (WHO) Collaborating Center. Electronically signed by: Babak Mccrary MD 08/22/2024 12:53 PM EDT RP Dictated By: Babak Mccrary MD Signed By: <Electronically signed by Babak Mccrary MD in OV> 08/22/24 1253 DD/ 1100 TD/TT: 08/22/24 1110 Automatic Coil Machine Operator: us Bharati Soriano MD IMG DXA PROCEDURES Final R esult * US Abdomen Complete (08/09/2024 8:38 AM EST) Anatomical Region Laterality Modality Abdomen Ultrasound 08/09/2024 8:38 AM EST Narrative 08/09/2024 10:07 AM EST ? [facility] ?[address] ?[place] [address] ? Ultrasound Report ? Signed ? Patient: Fink Fink,Sara ?MR#: ?? [id number] ? : 1955 ?Acct:[id number] ? Age/Sex: 68 / F ?ADM Date: 02/26/25 ? Loc: HO.US ? Attending Dr: Bharati Soriano MD ? Ordering Physician: Bharati Soriano MD ?? Date of Service: 08/09/24 ?? Procedure(s): US abdomen complete ?? Accession Number(s): [id number] ? cc: Bharati Soriano MD ? EXAMINATION: [...] DD/ 0838 ? TD/TT: 08/09/24 0848 ? Automatic Coil Machine Operator: ? Procedure Note Donotuseinterpreter, Image - 08/09/[address] [address] Ultrasound Report Signed Patient: Davis LancasteradMR#: [id number] : 4Acct:[id number] Age/Sex: 68 / FADM Date: 08/09/24 Loc: HO.US Attending Dr: Bharati Soriano MD Ordering Physician: Bharati Soriano MD Date of Service: 08/09/24 Procedure(s): US abdomen complete Accession Number(s): [id number] cc: Bharati Soriano MD EXAMINATION: US ABDOMEN [...] 08/09/24 1004 DD/ 0838 TD/TT: 08/09/24 0848 Automatic Coil Machine Operator: Bharati Soriano MD IMG US PROCEDURES Final Re sult * Lipid Panel, Standard (04/26/2024 10:02 AM EST) Triglycerides 118 <150 mg/dL [facility] Comment:Desirable Triglyceri de: less than 150 mg/dLBorderline High Triglyceride 150-199 mg/dLHigh Triglyceride: 200-499 mg/dLVery High Triglyceride: greater than or equal to 5OO mg/dL Cholesterol 173 <200 mg/dL [facility] Comment:Desirable Cholestero l: less than 200 mg/dLBorderline High Cholesterol: 200-239 mg/dLHigh Cholesterol: greater than 239 mg/dL LDL Cholesterol Calculated 84 <100 mg/dL [facility] Comment:Desirable LDL: less than 100 mg/dLNear Optimal/Above Optimal LDL: 110- 129 mg/dLBorderline High LDL: 130-159 mg/dLHigh LDL: 160-189 mg/dLVery High LDL: greater than or equal to 190 mg/dL HDL Cholesterol 66 >40 mg/dL [facility] Comment:Desirable HDL: great er than 40 mg/dL Note: This HDL assay may give artificially low results in patients with liver disease. Blood Venous blood specimen / Unknown 04/26/2024 10:02 AM EST 04/26/2024 10:02 AM EST Bharati Soriano MD LAB BLOOD ORDERABLES Final Result [facility] [address] [place] [phone] * (ABNORMAL) Mammography (09/29/2023 11:17 AM EDT) Mammogram BIRADS 1 Normal, Abnormal, BIRADS 1 , BIRADS 2 Anatomical Region Laterality Modality Other Historical Provider HEALTH MAINTENANCE Final Result * Hm Colonoscopy (03/30/2022) Colonoscopy Tubular adenoma Dr. Nugent Historical Provider HEALTH MAINTENANCE Final Result * Hepatitis C Antibody (03/18/2018 2:33 PM EDT) Hepatitis C Antibody Nonreactive Blood 03/18/2018 2:33 PM EDT Historical Provider POINT OF CARE TEST ENTER/ EDIT ORDERABLES Final Result from Last 3 Months or Most Recently Relevant to Health Maintenance Insurance * Guarantor: Sara [place] Account Type Relation to Patient Date of Phone Billing Address Personal/Family Self [address] [place] [address] [facility] STANDARD [place] [phone] [place] STAND ADULT Advance Directives Documents on File Type Date Recorded Patient Domestic Housekeeper Expl anation Advance Directives and Living Will 12/22/2023 Health Care Proxy 12/22/23 Care Teams Riveting Machine Operator Tape Control Relationship Specialty Start Date End Date [place], [place] Bharati [address] [place] [address] PCP - General Family Medicine 06/14/18 Vasyl Boles MD [address] [place] [address] DR [facility] [address] [place] [phone] Gastroenterology 06/20/24 [place] [address] [place] [phone] Rheumatology 09/18/24 Babak Sparks MD [address] [place] [address] Drive [address] [place] [address] [facility] 10/17/24
--- OUTSIDE RECORDS SUMMARY | 2024-10-17 14:53 | XMS_ITS | Encounter Summary ---
Author Organization [employer] Address [address] [place] [address] Care Team Providers Care Department Mgr Name Role Phone Bharati Soriano MD Primary Care Provider [phone] Vasyl Boles MD Unavailable [phone] Amador Green MD Unavailable [phone] Babak Sparks MD Unavailable [phone] Encounter Details Date Type Department Care Team (Late st Contact Info) Description 09/29/2023 Orders Only [facility] [address] [place], [place] [phone] Bryon Fuller MD [address] [place], [place] [phone] Social History Tobacco Use Types Packs/Day Years [...] Description 12/19/2024 11:00 AM EDT Office Visit [facility] [address] [place] [address] 01/17/2025 3:15 PM EDT Office Visit [facility] [address] [place] [address] Bharati Soriano MD [address] [place] [phone] 03/14/2025 1:00 PM EDT Office Visit [facility] ADULT DENTAL [address] [place] [address] Denzel, Elo [address] [place] [address] documented as of this encounter Visit Diagnoses Not on filedocumented in this encounter Additional Health Concerns Assessment Noted Time PHQ-9 Depression Total Score: 0 10/16/19 23 2:27 PM EDT documented as of this encounter Care Teams Department Mgr Relationship Specialty Start Date End Date Bharati Soriano MD [address] [place] [address] PCP - General Family Medicine 06/14/18 Vasyl Boles MD [address] [place] [address] [place] [phone] Gastroenterology 06/20/24 Amador Green MD [address] [place] [phone] Rheumatology 09/18/24 Babak Sparks MD [address] [place] [address] [place] [phone] Endocrinology 10/17/24 documented as of this encounter
--- OUTSIDE RECORDS SUMMARY | 2024-10-17 14:53 | XMS_ITS | Encounter Summary ---
Author Organization [employer] Address 75 [facility] 7t [place] [address] Care Team Providers Care Head Librarian Name Role Phone Bharati Soriano MD Primary Care Provider +1- [phone] Vasyl Boles MD Unavailable Amador Green MD Unavailable [phone] Babak Sparks MD Unavailable Encounter Details Date Type Department Care Team (Late st Contact Info) Description 10/12/2022 Abstract [facility] [address] [place], [place] [phone] Bharati Soriano MD 230 [place], [place] [phone] Social History Tobacco Use Types Packs/Day Years [...] 11:00 AM EDT Office Visit [facility] [address] [place] [address] 01/17/2025 3:15 PM EDT Office Visit [facility] [address] [place] [address] Bharati Soriano MD 230 [place] [address] 03/14/2025 1:00 PM EDT Office Visit [facility] ADULT DENTAL [address] [place] [address] Al Mahoneyaris 230 [place] [address] documented as of this encounter Visit Diagnoses Not on filedocumented in this encounter Care Teams Head Librarian Relationship Specialty Start Date End Date Bharati Soriano MD [address] [place] [address] PCP - General Family Medicine 06/14/18 Vasyl Boles MD [address] [place] [address] DR [facility] [address] [place] [address] Gastroenterology 06/20/24 Amador Green MD [address] [place] [address] Rheumatology 09/18/24 Babak Sparks MD [address] [place] [address] Drive [address] [place] [address] Endocrinology 10/17/24 documented as of this encounter
--- OUTSIDE RECORDS SUMMARY | 2024-10-17 14:53 | XMS_ITS | Encounter Summary ---
Author Organization [employer] Address [address] [facility] 7t [place] [address] Care Team Providers Care Hospice Spiritual Care Coordinator Name Role Phone Bharati Soriano MD Primary Care Provider +1- [phone] Vasyl Boles MD Unavailable Amador Green MD Unavailable Babak Sparks MD Unavailable Reason for Visit * Reason Onset Date Comments requesting a call back 09/07/2022 Encounter Details Date Type Department Care Team (Late st Contact Info) Description 09/07/2022 Telephone [facility] 230 [place], [place] [phone] Bharati Soriano MD 230 [place] [address] requesting a call back Social History Tobacco [...] [facility] 230 [place] [address] 01/17/2025 3:15 PM EDT Office Visit [facility] 230 [place] [address] Bharati Soriano MD 230 [place] [address] 03/14/2025 1:00 PM EDT Office Visit [facility] ADULT DENTAL 230 [place] [address] Denzel, Elo 230 [place] [address] documented as of this encounter Visit Diagnoses Not on filedocumented in this encounter Care Teams Hospice Spiritual Care Coordinator Relationship Specialty Start Date End Date Bharati Soriano MD [address] [place] [address] PCP - General Family Medicine 06/14/18 Vasyl Boles MD [address] [place] [address] [address] [place] [address] Gastroenterology 06/20/24 Amador Green MD [address] [place] [address] Rheumatology 09/18/24 Babak Sparks MD [address] [place] [address] Drive [address] [place] [address] Endocrinology 10/17/24 documented as of this encounter
--- OUTSIDE RECORDS SUMMARY | 2024-10-17 14:53 | XMS_ITS | Encounter Summary ---
Author Organization [employer] Address 75 [facility] 7t [place] [address] Care Team Providers Care Prop Sawyer Name Role Phone Bharati Soriano MD Primary Care Provider +1- [phone] Vasyl Boles MD Unavailable [phone] Amador Green MD Unavailable Babak Sparks MD Unavailable [phone] Reason for Visit * Reason Onset Date Comments Call Back Request 10/25/2023 Encounter Details Date Type Department Care Team (Late st Contact Info) Description 10/25/2023 Telephone [facility] [address] [place], [place] [phone] Bharati Soriano MD [address] [place], [place] [phone] Call Back Request Social History Tobacco Use Types Packs/Day Years Used Date Smoking Tobacco: Never Passive Smoke Exposure: Never Smokeless Tobacco: Never Depression Answer Date Recorded Patient Health Questionnaire-9 Score 0 10/15/2022 Housing Stability Answer Date Recorded What is your housing situation today? I have anitacuong anaya 03/29/[address] you [...] of every month. Please contact pt at [phone] documented in this encounter Plan of Treatment Upcoming Encounters Date Type Department Care Team (Late st Contact Info) Description 12/19/2024 11:00 AM EDT Office Visit [facility] [address] [place] [address] 01/17/2025 3:15 PM EDT Office Visit [facility] [address] [place] [address] Bharati Soriano MD 230 [place] [address] 03/14/2025 1:00 PM EDT Office Visit [facility] ADULT DENTAL [address] [place] [address] Elo Mahoney 230 [place] [address] documented as of this encounter Visit Diagnoses Not on filedocumented in this encounter Additional Health Concerns Assessment Noted Time PHQ-9 Depression Total Score: 0 10/16/19 23 2:27 PM EDT documented as of this encounter Care Teams Prop Sawyer Relationship Specialty Start Date End Date Bharati Soriano MD 230 [place] [address] PCP - General Family Medicine 06/14/18 Vasyl Boles MD [address] [place] [address] [address] [place] [address] Gastroenterology 06/20/24 Amador Green MD [address] [place] [address] Rheumatology 09/18/24 Babak Sparks MD [address] [place] [address] Drive [address] [place] [address] Endocrinology 10/17/24 documented as of this encounter
--- OUTSIDE RECORDS SUMMARY | 2024-10-17 14:53 | XMS_ITS ---
Demographics Address [address] [facility] [address] [place] [address] Mobile Preferred Language en Marital Status Unknown Roman Catholic Affiliation Unknown Race White Ethnic Group or Author Organization [facility] Address [address] [place] [address] Care Team Providers Care Account Development Associate Name Role Phone Bharati Soriano MD Primary Care Provider Becca vailable Ramana Bates, Vasyl Unavailable [phone] REASON FOR VISIT script for diapers Encounters Encounter Location Date Provider Diagnosis [facility] [address] [place] [address] 09/20/2023 Vasyl Boles Jr Plan Of Treatment No Information Progress Notes * MICHAEL RENDONADDOB:[birth year] (67 yo F)Acc No.[id number]:09/20/2023 Patient:?PATT RENDON :1955???Age:67 Y???Sex:Female Address:[address] [place] [address] 4, [place], [address] * true * Date:? Generated for Print[employer] junito/Fide/eTransmitting on:?10/17/2024 02:53 PM EDT
--- OUTSIDE RECORDS SUMMARY | 2024-10-17 14:53 | XMS_ITS | Encounter Summary ---
Author Organization [employer] Address 75 [facility] 7t [place] [address] Care Team Providers Care Arts Manager Name Role Phone Bharati Soriano MD Primary Care Provider +1- [phone] Vasyl Boles MD Unavailable [phone] Amador Green MD Unavailable Babak Sparks MD Unavailable Encounter Details Date Type Department Care Team (Late st Contact Info) Description 06/12/2022 Orders Only [facility] [address] [place] [address] Leena Verdin ANP 230 [place], [place] [phone] Social History Tobacco Use Types Packs/Day Years [...] Office Visit [facility] [address] [place] [address] [phone] 01/17/2025 3:15 PM EDT Office Visit [facility] [address] [place] [address] [phone] Bharati Soriano MD 230 [place] [address] 03/14/2025 1:00 PM EDT Office Visit [facility] ADULT DENTAL 230 [place], [place] [phone] Elo Mahoney 230 [place], [place] [phone] documented as of this encounter Visit Diagnoses Not on filedocumented in this encounter Care Teams Arts Manager Relationship Specialty Start Date End Date Bharati Soriano MD 230 [place], [place] [phone] PCP - General Family Medicine 06/14/18 Vasyl Boles MD [address] [place] [address] [address] [place] [address] Gastroenterology 06/20/24 Amador Green MD [address] [place] [address] Rheumatology 09/18/24 Babak Sparks MD [address] [place] [address] Drive [address] [place] [address] Endocrinology 10/17/24 documented as of this encounter
--- OUTSIDE RECORDS SUMMARY | 2024-10-17 14:53 | XMS_ITS | Encounter Summary ---
Author Organization [employer] Address 75 [facility] 7t [place] [address] Care Team Providers Care Conductor/Brakeman Name Role Phone Bharati Soriano MD Primary Care Provider [phone]- [phone] Vasyl Boles MD Unavailable Amador Green MD Unavailable Babak Sparks MD Unavailable Reason for Visit * Reason Onset Date Comments Med Refill 02/01/2024 Encounter Details Date Type Department Care Team (Late st Contact Info) Description 02/01/2024 Telephone [facility] 230 [place], [place] [phone] Bharati Soriano MD 230 [place], [place] [phone] Med Refill Social History Tobacco Use Types [...] 5-325 MG tablet To be sent to: [facility]/pharmacy #[address] [place] [address] - [address] [place] [address] documented in this encounter Plan of Treatment Upcoming Encounters Date Type Department Care Team (Late st Contact Info) Description 12/19/2024 11:00 AM EDT Office Visit [facility] [address] [place] [address] 01/17/2025 3:15 PM EDT Office Visit [facility] [address] [place] [address] Bharati Soriano MD [address] [place] [address] 03/14/2025 1:00 PM EDT Office Visit [facility] ADULT DENTAL [address] [place] [address] Elo Mahoney 230 [place] [address] documented as of this encounter Visit Diagnoses Not on filedocumented in this encounter Additional Health Concerns Assessment Noted Time PHQ-9 Depression Total Score: 1 01/14/20 24 10:00 AM EDT documented as of this encounter Care Teams Conductor/Brakeman Relationship Specialty Start Date End Date Bharati Soriano MD [address] [place] [address] PCP - General Family Medicine 06/14/18 Vasyl Boles MD [address] [place] [address] DR [facility] 102 [place] [address] Gastroenterology 06/20/24 Amador Green MD [address] [place] [address] Rheumatology 09/18/24 Babak Sparks MD [address] [place] [address] Drive [address] [place] [address] Endocrinology 10/17/24 documented as of this encounter
--- OUTSIDE RECORDS SUMMARY | 2024-10-17 14:53 | XMS_ITS | Encounter Summary ---
Author Organization [employer] Address 75 [facility] 7t [place] [address] Care Team Providers Care Records Management Engineer Name Role Phone Bharati Soriano MD Primary Care Provider [phone]- [phone] Vasyl Boles MD Unavailable Amador Green MD Unavailable [phone] Babak Sparks MD Unavailable [phone] Reason for Visit * Reason Onset Date Comments Med Refill 03/31/2024 Encounter Details Date Type Department Care Team (Late st Contact Info) Description 03/31/2024 Telephone [facility] 230 [place], [place] [phone] Bharati Soriaon MD 230 [place], [place] [phone] Med Refill Social History Tobacco Use Types [...] 5-325 MG tablet To be sent to: [facility]/pharmacy #[id number] [place] [address] documented in this encounter Plan of Treatment Upcoming Encounters Date Type Department Care Team (Late st Contact Info) Description 12/19/2024 11:00 AM EDT Office Visit [facility] MEDICINE [address] [place] [address] 01/17/2025 3:15 PM EDT Office Visit [facility] MEDICINE [address] [place] [address] Bharati Soriano MD [address] [place] [address] 03/14/2025 1:00 PM EDT Office Visit [facility] ADULT DENTAL [address] [place] [address] Elo Mahoney 230 [place] [address] documented as of this encounter Visit Diagnoses Not on filedocumented in this encounter Additional Health Concerns Assessment Noted Time PHQ-9 Depression Total Score: 1 01/14/20 24 10:00 AM EDT documented as of this encounter Care Teams Records Management Engineer Relationship Specialty Start Date End Date Bharati Soriano MD 230 [place] [address] PCP - General Family Medicine 06/14/18 Vasyl Boles MD [address] [place] [address] [address] [place] [address] Gastroenterology 06/20/24 Amador Green MD [address] [place] [address] Rheumatology 09/18/24 Babak Sparks MD [address] [place] [address] Drive [address] [place] [address] Endocrinology 10/17/24 documented as of this encounter
--- OUTSIDE RECORDS SUMMARY | 2024-10-17 14:53 | XMS_ITS | Encounter Summary ---
Author Organization [employer] Address 75 [facility] 7t [place] [address] Care Team Providers Care Supportability Engineer Name Role Phone Bharati Soriano MD Primary Care Provider [phone]- [phone] Vasyl Boles MD Unavailable Amador Green MD Unavailable [phone] Babak Sparks MD Unavailable [phone] Encounter Details Date Type Department Care Team (Late st Contact Info) Description 08/01/2024 Orders Only [facility] 230 [place], [place] [phone] Rosi Vergara MD 230 [place], [place] [phone] Primary hypertension; Chronic renal impairment, stage 2 [...] 12/19/2024 11:00 AM EDT Office Visit [facility] [address] [place] [address] 01/17/2025 3:15 PM EDT Office Visit [facility] [address] [place] [address] Bharati Soriano MD [address] [place] [address] 03/14/2025 1:00 PM EDT Office Visit [facility] ADULT DENTAL [address] [place] [address] Elo Mahoney [address] [place] [address] documented as of this encounter Visit Diagnoses Diagnosis Primary hypertension Unspecified essential hypertension Chronic renal impairment, stage 2 (mild) documented in this encounter Additional Health Concerns Assessment Noted Time PHQ-9 Depression Total Score: 1 01/14/20 24 10:00 AM EDT documented as of this encounter Care Teams Supportability Engineer Relationship Specialty Start Date End Date Bharati Soriano MD [address] [place] [address] PCP - General Family Medicine 06/14/18 Vasyl Boles MD [address] [place] [address] [address] [place] [address] Gastroenterology 06/20/24 Amador Green MD [address] [place] [address] Rheumatology 09/18/24 Babak Sparks MD [address] [place] [address] Drive [address] [place] [address] Endocrinology 10/17/24 documented as of this encounter
--- OUTSIDE RECORDS SUMMARY | 2024-10-17 14:53 | XMS_ITS | Encounter Summary ---
Author Organization [employer] Address 75 [facility] 7t [place] [address] Care Team Providers Care Steaming Cabinet Tender Name Role Phone Bharati Soriano MD Primary Care Provider [phone]- [phone] Vasyl Boles MD Unavailable Amador Green MD Unavailable Babak Sparks MD Unavailable [phone] Encounter Details Date Type Department Care Team (Late st Contact Info) Description 05/30/2024 Telephone [facility] 230 [place], [place] [phone] Bharati Soriano MD 230 [place], [place] [phone] Social History Tobacco Use Types Packs/Day Years [...] EDT Office Visit [facility] [address] [place] [address] 01/17/2025 3:15 PM EDT Office Visit [facility] [address] [place] [address] Bharati Soriano MD [address] [place] [address] 03/14/2025 1:00 PM EDT Office Visit [facility] ADULT DENTAL [address] [place] [address] Elo Mahoney 230 [place] [address] documented as of this encounter Visit Diagnoses Not on filedocumented in this encounter Additional Health Concerns Assessment Noted Time PHQ-9 Depression Total Score: 1 01/14/20 24 10:00 AM EDT documented as of this encounter Care Teams Steaming Cabinet Tender Relationship Specialty Start Date End Date Bharati Soriano MD [address] [place] [address] PCP - General Family Medicine 06/14/18 Vasyl Boles MD [address] [place] [address] [address] [place] [address] Gastroenterology 06/20/24 Amador Green MD [address] [place] [address] Rheumatology 09/18/24 Babak Sparks MD [address] [place] [address] Drive [address] [place] [address] Endocrinology 10/17/24 documented as of this encounter
--- OUTSIDE RECORDS SUMMARY | 2024-10-17 14:53 | XMS_ITS | Encounter Summary ---
Author Organization [employer] Address 75 [facility] 7t [place] [address] Care Team Providers Care Textile Supervisor Name Role Phone Bharati Soriano MD Primary Care Provider [phone]- [phone] Vasyl Boles MD Unavailable Amador Green MD Unavailable [phone] Babak Sparks MD Unavailable [phone] Reason for Visit * Reason Comments Med Refill Encounter Details Date Type Department Care Team (Late st Contact Info) Description 07/30/2024 Refill [facility] 230 [place], [place] [phone] Bharati Soriano MD 230 [place], [place] [phone] Gastroesophageal reflux disease without esophagitis Social History [...] Description 12/19/2024 11:00 AM EDT Office Visit [facility] [address] [place] [address] 01/17/2025 3:15 PM EDT Office Visit [facility] [address] [place] [address] Bharati Soriano MD [address] [place] [address] 03/14/2025 1:00 PM EDT Office Visit [facility] ADULT DENTAL [address] [place] [address] Elo Mahoney [address] [place] [address] documented as of this encounter Visit Diagnoses Diagnosis Gastroesophageal reflux disease without esophagitis Esophageal reflux documented in this encounter Additional Health Concerns Assessment Noted Time PHQ-9 Depression Total Score: 1 01/14/20 24 10:00 AM EDT documented as of this encounter Care Teams Textile Supervisor Relationship Specialty Start Date End Date Bharati Soriano MD [address] [place] [address] PCP - General Family Medicine 06/14/18 Vasyl Boles MD [address] [place] [address] [address] [place] [address] Gastroenterology 06/20/24 Amador Green MD [address] [place] [address] Rheumatology 09/18/24 Babak Sparks MD [address] [place] [address] Drive [address] [place] [address] Endocrinology 10/17/24 documented as of this encounter
--- OUTSIDE RECORDS SUMMARY | 2024-10-17 14:53 | XMS_ITS | Patient Health Record ---
Author Organization [facility] Address [address] [place] [address] Care Team Providers Care Umbrella Repairer Name Role Phone Bharati Soriano MD Primary Care Provider Vasyl Simon Jr Unavailable [phone] Allergies Allergen (clinical drug ingredient) Drug/Non [...] 100 MG TAKE [address]T [address] 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 Problem 06234054 Incontinence of feces, unspecified fecal incontinence type (R15.9) Active confirmed Plan Of Treatment Future Test Test Name Order Date COLONOSCOPY 07/14/2018 COLONOSCOPY 12/25/2021 Insurance Providers Payer Name Payer Address Payer Phone Subscriber Number Group Number Insured Name Patient Relationship to Insured Coverage Start Date Coverage End Date MEDICARE OF [place] [address] [place] [id number] PATT RENDON Self - patient is the insured MEDICAID OF [facility] [address] [place] [address] [phone] [id number] PATT RENDON Self - patient is the insured Medical (General) History Medical History History ICD Code hypertension 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
--- OUTSIDE RECORDS SUMMARY | 2024-10-17 14:53 | XMS_ITS | Encounter Summary ---
Author Organization [employer] Address 75 [facility] 7t [place] [address] Care Team Providers Care Logistics Planning Manager Name Role Phone Bharati Soriano MD Primary Care Provider [phone]- [phone] Vasyl Boles MD Unavailable Amador Green MD Unavailable Babak Sparks MD Unavailable Reason for Visit * Reason Comments Med Refill Encounter Details Date Type Department Care Team (Late Contact Info) Description 10/05/2022 Refill [facility] MEDICINE 230 [place], [place] [phone] Bharati Soriano MD 230 [place], [place] [phone] Wheeze Social History Tobacco Use Types Packs/Day [...] Department Care Team (Late Contact Info) Description 12/19/2024 11:00 AM EDT Office Visit [facility] MED[facility]INE [address] [place] [address] 01/17/2025 3:15 PM EDT Office Visit [facility] MED[facility]INE [address] [place] [address] Bharati Soriano MD 230 [place] [address] 03/14/2025 1:00 PM EDT Office Visit [facility] ADULT DENTAL [address] [place] [address] Denzel, Elo [address] [place] [address] documented as of this encounter Visit Diagnoses Diagnosis Wheeze Wheezing documented in this encounter Care Teams Logistics Planning Manager Relationship Specialty Start Date End Date Bharati Soriano MD [address] [place] [address] [phone] PCP - General Family Medicine 06/14/18 Vasyl Boles MD [address] [place] [address] [address] [facility] 102 [place] [address] Gastroenterology 06/20/24 Amador Green MD [address] [place] [address] Rheumatology 09/18/24 Babak Sparks MD [address] [place] [address] Drive [address] [place] [address] Endocrinology 10/17/24 documented as of this encounter
--- OUTSIDE RECORDS SUMMARY | 2024-10-17 14:53 | XMS_ITS | Encounter Summary ---
Author Organization [email or web address] Address [address] 7t [place] [address] Care Team Providers Care Business Information Analyst Name Role Phone Bharati Soriano MD Primary Care Provider +[phone]- [phone] Vasyl Boles MD Unavailable Amador Green MD Unavailable [phone] Babak Sparks MD Unavailable [phone] Encounter Details Date Type Department Care Team (Late st Contact Info) Description 01/04/2024 Orders Only [facility] MEDICINE [address] [place], [place] [phone] Hortencia Beard, JÚNIOR [address] [place] [address] Pain Social History Tobacco Use Types Packs/Day [...] Description 12/19/2024 11:00 AM EDT Office Visit [facility] [address] [place] [address] 01/17/2025 3:15 PM EDT Office Visit [facility] [address] [place] [address] Bharati Soriano MD 230 [place] [address] 03/14/2025 1:00 PM EDT Office Visit [facility] ADULT DENTAL [address] [place] [address] Al Mahoneyaris 230 [place] [address] Scheduled Orders Name Type Priority Associated Diagnoses [...] 11:23 AM EDT) Nordiazepam, GCMS Urine NEGATIVE [facility] Oxazepam, GCMS Urine NEGATIVE [facility] Lorazepam GCMS Urine NEGATIVE [facility] Alprazolam, GCMS Urine NEGATIVE [facility] Alphahydroxytriazolam, GCMS Ur NEGATIVE [facility] Temazepam, GCMS Urine NEGATIVE [facility] Alphahydroxymidazolam,GC MS Ur NEGATIVE [facility] Aminoclonazepam, GCMS Urine NEGATIVE [facility] Flurazepam Metabolite,GCMS Ur NEGATIVE [facility] Benzodiazepines Comments SEE NOTE [facility] Comment:This drug testing is for medical treatment only.Analysis was performed as non-forensic testing andthese results should be used only by healthcareproviders to render diagnosis or treatment, or tomonitor progress of medical conditions.LDT Notes:Confirmation tests were developed and their analyticalperformance characteristics have been determined by[employer]. It has not been cleared or approvedby the FDA. This assay has been validated pursuant tothe CLIA regulations and is used for clinical purposes.Healthcare Providers needing Interpretation assistance,please contact us at [phone] ( )M-F, 8am to 10pm ESTTHIS TEST PERFORMED AT:[facility] [place] [phone] 1870LABORATORY DIRECTOR: VAUGHN BAUTISTA MD 01/04/2024 11:2 3 AM EDT 01/04/2024 1:53 PM EDT us Mily Alfredo [employer] LAB URINE ORDERABLES Final Res ult [facility] [address] [place] [address] [phone] documented in this encounter Visit Diagnoses Diagnosis Pain Generalized pain documented in this encounter Additional Health Concerns Assessment Noted Time PHQ-9 Depression Total Score: 2 12/22/19 24 2:00 PM EDT documented as of this encounter Care Teams Business Information Analyst Relationship Specialty Start Date End Date Bharati Soriano MD 230 [place] [address] PCP - General Family Medicine 06/14/18 Vasyl Boles MD [address] [place] [address] [address] [place] [address] Gastroenterology 06/20/24 [place] [address] [place] [address] Rheumatology 09/18/24 Babak Sparks MD [address] [place] [address] Drive [address] [place] [address] Endocrinology 10/17/24 documented as of this encounter
--- OUTSIDE RECORDS SUMMARY | 2024-10-17 14:53 | XMS_ITS | Encounter Summary ---
Author Organization [email or web address] Address [address] 7t [place] [address] Care Team Providers Care Pharmacist Name Role Phone Bharati Soriano MD Primary Care Provider +[phone]- [phone] Vasyl Boles MD Unavailable [phone] Amador Green MD Unavailable [phone] Babak Sparks MD Unavailable [phone] Encounter Details Date Type Department Care Team (Late st Contact Info) Description 09/29/2023 Abstract [facility] MEDICINE 230 [place], [place] [phone] Bharati Soriano MD 230 [place], [place] [phone] Social History Tobacco Use Types Packs/Day Years [...] Visit [facility] MEDICINE [address] [place] [address] 01/17/2025 3:15 PM EDT Office Visit [facility] MEDICINE [address] [place] [address] Bharati Soriano MD 230 [place] [address] 03/14/2025 1:00 PM EDT Office Visit [facility] ADULT DENTAL 230 [place] [address] Denzel, Elo 230 [place] [address] documented as of this encounter Procedures Procedure [...] as of this encounter Care Teams Pharmacist Relationship Specialty Start Date End Date Bharati Soriano MD 230 [place] [address] PCP - General Family Medicine 06/14/18 Vasyl Boles MD [address] [place] [address] [address] [place] [address] Gastroenterology 06/20/24 Amador Green MD [address] [place] [address] Rheumatology 09/18/24 Babak Sparks MD [address] [place] [address] Drive [address] [place] [address] Endocrinology 10/17/24 documented as of this encounter
--- OUTSIDE RECORDS SUMMARY | 2024-10-17 14:53 | XMS_ITS | Encounter Summary ---
Author Organization [employer] Address [address] [facility] 7t [place] [address] Care Team Providers Care Continuity Reader Name Role Phone Bharati Soriano MD Primary Care Provider + [phone] Vasyl Boles MD Unavailable [phone] Amador Green MD Unavailable Babak Sparks MD Unavailable [phone] Encounter Details Date Type Department Care Team (Latest Contact Info) Description 06/29/[address] [facility] CONVERSIONS Dental, Provider, DDS Social History [...] Visit [facility] MEDICINE [address] [place] [address] 01/17/2025 3:15 PM EDT Office Visit [facility] MEDICINE [address] [place] [address] Bharati Soriano MD [address] [place] [address] 03/14/2025 1:00 PM EDT Office Visit [facility] 230 [place] [address] Elo Mahoney 230 [place] [address] documented as of this encounter Visit Diagnoses Not on filedocumented in this encounter Care Teams Continuity Reader Relationship Specialty Start Date End Date Bharati Soriano MD 230 [place] [address] PCP - General Family Medicine 06/14/18 Vasyl Boles MD [address] [place] [address] DR [facility] [address] [place] [phone] Gastroenterology 06/20/24 Amador Green MD [address] [place] [address] Rheumatology 09/18/24 Babak Sparks MD [address] [place] [address] Drive [address] [place] [address] Endocrinology 10/17/24 documented as of this encounter
--- OUTSIDE RECORDS SUMMARY | 2024-10-17 14:53 | XMS_ITS | Encounter Summary ---
Author Organization [employer] Address [address] [facility] 7t [place] [address] Care Team Providers Care Nsh Teacher Name Role Phone Bharati Soriano MD Primary Care Provider [phone]- [phone] Vasyl Boles MD Unavailable Amador Green MD Unavailable Babak Sparks MD Unavailable [phone] Reason for Visit * Reason Comments Med Refill Encounter Details Date Type Department Care Team (Late st Contact Info) Description 05/10/2024 Refill [facility] MEDICINE 230 [place], [place] [phone] Bharati Soriano MD 230 [place], [place] [phone] Dyslipidemia; Other osteoporosis without current pathological fracture; [...] Description 12/19/2024 11:00 AM EDT Office Visit [facility] MEDICINE [address] [place] [address] 01/17/2025 3:15 PM EDT Office Visit [facility] MEDICINE [address] [place] [address] Bharati Soriano MD [address] [place] [address] 03/14/2025 1:00 PM EDT Office Visit [facility] ADULT DENTAL [address] [place] [address] Elo Mahoney 230 [place] [address] documented as of this encounter Visit Diagnoses Diagnosis Dyslipidemia Other and unspecified hyperlipidemia Other osteoporosis without current pathological fracture Mild intermittent asthma, unspecified whether complicated documented in this encounter Additional Health Concerns Assessment Noted Time PHQ-9 Depression Total Score: 1 01/14/20 24 10:00 AM EDT documented as of this encounter Care Teams Nsh Teacher Relationship Specialty Start Date End Date Bharati Soriano MD 230 [place] [address] PCP - General Family Medicine 06/14/18 Vasyl Boles MD [address] [place] [address] [address] [place] [address] Gastroenterology 06/20/24 [place] [address] [place] [address] Rheumatology 09/18/24 Babak Sparks MD [address] [place] [address] Drive [address] [place] [address] Endocrinology 10/17/24 documented as of this encounter
--- OUTSIDE RECORDS SUMMARY | 2024-10-17 14:53 | XMS_ITS | Encounter Summary ---
Author Organization [employer] Address [address] [facility] 7t [place] [address] Care Team Providers Care Acetylene Operator Name Role Phone Bharati Soriano MD Primary Care Provider + [phone] Vasyl Boles MD Unavailable Amador Green MD Unavailable Babak Sparks MD Unavailable [phone] Encounter Details Date Type Department Care Team (Latest Contact Info) Description 08/23/2019 Abstract [facility] CONVERSIONS Dental, Provider, DDS Social History [...] Description 12/19/2024 11:00 AM EDT Office Visit [facility] MEDICINE [address] [place] [address] 01/17/2025 3:15 PM EDT Office Visit [facility] MEDICINE [address] [place] [address] Bharati Soriano MD [address] [place] [address] 03/14/2025 1:00 PM EDT Office Visit [facility] 230 [place] [address] Elo Mahoney 230 [place] [address] documented as of this encounter Visit Diagnoses Not on filedocumented in this encounter Care Teams Acetylene Operator Relationship Specialty Start Date End Date Bharati Soriano MD 230 [place] [address] PCP - General Family Medicine 06/14/18 Vasyl Boles MD [address] [place] [address] DR [facility] 102 [place] [address] Gastroenterology 06/20/24 Amador Green MD [address] [place] [address] Rheumatology 09/18/24 Babak Sparks MD [address] [place] [address] Drive [address] [place] [address] Endocrinology 10/17/24 documented as of this encounter
--- OUTSIDE RECORDS SUMMARY | 2024-10-17 14:53 | XMS_ITS | Encounter Summary ---
Author Organization [employer] Address [address] [facility] 7t [place] [address] Care Team Providers Care Staff Reporter Name Role Phone Bharati Soriano MD Primary Care Provider + [phone] Vasyl Boles MD Unavailable [phone] Amador Green MD Unavailable Babak Sparks MD Unavailable [phone] Encounter Details Date Type Department Care Team (Latest Contact Info) Description 03/26/2021 Abstract [facility] CONVERSIONS Dental, Provider, DDS Social History Tobacco [...] Office Visit [facility] MEDICINE [address] [place] [address] 01/17/2025 3:15 PM EDT Office Visit [facility] MEDICINE [address] [place] [address] Bharati Soriano MD [address] [place] [address] 03/14/2025 1:00 PM EDT Office Visit [facility] ADULT DENTAL 230 [place] [address] Elo Mahoney 230 [place] [address] documented as of this encounter Visit Diagnoses Not on filedocumented in this encounter Care Teams Staff Reporter Relationship Specialty Start Date End Date Bharati Soriano MD 230 [place] [address] PCP - General Family Medicine 06/14/18 Vasyl Boles MD [address] [place] [address] DR [facility] 102 [place] [phone] Gastroenterology 06/20/24 Amador Green MD [address] [place] [address] Rheumatology 09/18/24 Babak Sparks MD [address] [place] [address] Drive [address] [place] [address] Endocrinology 10/17/24 documented as of this encounter
--- OUTSIDE RECORDS SUMMARY | 2024-10-17 14:53 | XMS_ITS | Encounter Summary ---
Author Organization [employer] Address [address] [facility] 7t [place] [address] Care Team Providers Care Set Up Technician Name Role Phone Bharati Soriano MD Primary Care Provider [phone]- [phone] Vasyl Boles MD Unavailable [phone] Amador Green MD Unavailable [phone] Babak Sparks MD Unavailable Reason for Visit * Reason Onset Date Comments Med Refill 09/29/2024 Encounter Details Date Type Department Care Team (Late st Contact Info) Description 09/29/2024 Telephone [facility] MEDICINE 230 [place], [place] [phone] Bharati Soriano MD 230 [place], [place] [phone] Med Refill Social History Tobacco Use Types [...] * Telephone Encounter - Mary Bailey - 10/04/2024 11:04 AM EDT Tc from pt requesting status on refill request. * Telephone Encounter - Elo Mcpherson - 09/29/2024 4:08 PM EDT TC from pt requesting medication refill. Medications needing refill : oxyCODONE-acetaminophen (Percocet) 5-325 MG tablet To be sent to: [facility]/pharmacy #[id number] [place] [address] - [address] [place] [address] documented in this encounter Plan of Treatment Upcoming Encounters Date Type Department Care Team ([facility] st Contact Info) Description 12/19/2024 11:00 AM EDT Office Visit [facility] MEDICINE [address] [place] [address] 01/17/2025 3:15 PM EDT Office Visit [facility] MEDICINE [address] [place] [address] Bharati Soriano MD 230 [place] [address] 03/14/2025 1:00 PM EDT Office Visit [facility] ADULT DENTAL 230 [place] [address] Elo Mahoney 230 [place] [address] documented as of this encounter Visit Diagnoses Not on filedocumented in this encounter Additional Health Concerns Assessment Noted Time PHQ-9 Depression Total Score: 1 01/14/20 24 10:00 AM EDT documented as of this encounter Care Teams Set Up Technician Relationship Specialty Start Date End Date Bharati Soriano MD 230 [place] [address] PCP - General Family Medicine 06/14/18 Vasyl Boles MD [address] [place] [address] [address] [place] [address] Gastroenterology 06/20/24 Amador Green MD [address] [place] [address] Rheumatology 09/18/24 Babak Sparks MD [address] [place] [address] Drive [address] [place] [address] Endocrinology 10/17/24 documented as of this encounter
--- OUTSIDE RECORDS SUMMARY | 2024-10-17 14:53 | XMS_ITS | Encounter Summary ---
Author Organization [employer] Address [address] [place] [address] 7t [place] [address] Care Team Providers Care Garnett Fixer Name Role Phone Bharati Soriano MD Primary Care Provider [phone]- [phone] Vasyl Boles MD Unavailable [phone] Amador Green MD Unavailable [phone] Babak Sparks MD Unavailable [phone] Reason for Visit * Reason Onset Date Comments Medication Question 06/12/2022 Encounter Details Date Type Department Care Team ([facility] st Contact Info) Description 06/12/2022 Telephone [facility] MEDICINE 230 [place], [place] [phone] Bharati Soriano MD 230 [place], [place] [phone] Medication Question Social History Tobacco Use Types [...] sent on the to a place in [place] . Ptstates [facility] [address] . Pt would like to know if she will be able to get meds before the long weekend ? documented in this encounter Plan of Treatment Upcoming Encounters Date Type Department Care Team (Late st Contact Info) Description 12/19/2024 11:00 AM EDT Office Visit [facility] MEDICINE 230 [place] [address] 01/17/2025 3:15 PM EDT Office Visit [facility] MEDICINE [address] [place] [address] Bharati Soriano MD [address] [place] [address] 03/14/2025 1:00 PM EDT Office Visit [facility] ADULT DENTAL 230 [place] [address] Denzel Elo 230 [place] [address] documented as of this encounter Visit Diagnoses Diagnosis Pain Generalized pain documented in this encounter Care Teams Garnett Fixer Relationship Specialty Start Date End Date Bharati Soriano MD [address] [place] [address] PCP - General Family Medicine 06/14/18 Vasyl Boles MD [address] [place] [address] [address] [place] [address] Gastroenterology 06/20/24 Amador Green MD [address] [place] [address] Rheumatology 09/18/24 Babak Sparks MD [address] [place] [address] Drive [address] [place] [address] Endocrinology 10/17/24 documented as of this encounter
--- OUTSIDE RECORDS SUMMARY | 2024-10-17 14:54 | XMS_ITS | Encounter Summary ---
Author Organization [employer] Address [address] [facility] 7t [place] [address] Care Team Providers Care Apartment Leasing Consultant Name Role Phone Bharati Soriano MD Primary Care Provider [phone]- [phone] Vaysl Boles MD Unavailable Amador Green MD Unavailable Babak Sparks MD Unavailable [phone] Reason for Visit * Reason Onset Date Comments Med Refill 06/01/2023 Encounter Details Date Type Department Care Team (Late st Contact Info) Description 06/01/2023 Telephone [facility] MEDICINE 230 [place], [place] [phone] Bharati Soriano MD 230 [place], [place] [phone] Med Refill Social History Tobacco Use Types [...] AM EDT Office Visit [facility] MEDICINE [address] [place] [address] 01/17/2025 3:15 PM EDT Office Visit [facility] MEDICINE [address] [place] [address] Bharati Soriano MD 230 [place] [address] 03/14/2025 1:00 PM EDT Office Visit [facility] ADULT DENTAL 230 [place] [address] Elo Mahoney 230 [place] [address] documented as of this encounter Visit Diagnoses Not on filedocumented in this encounter Additional Health Concerns Assessment Noted Time PHQ-9 Depression Total Score: 0 10/16/19 2:27 PM EDT documented as of this encounter Care Teams Apartment Leasing Consultant Relationship Specialty Start Date End Date Bharati Soriano MD 230 [place] [address] PCP - General Family Medicine 06/14/18 Vasyl Boles MD [address] [place] [address] [address] [place] [address] Gastroenterology 06/20/24 [place] [address] [place] [address] Rheumatology 09/18/24 Babak Sparks MD [address] [place] [address] Drive [address] [place] [address] Endocrinology 10/17/24 documented as of this encounter
--- OUTSIDE RECORDS SUMMARY | 2024-10-17 14:54 | XMS_ITS | Encounter Summary ---
Author Organization [employer] Address [address] [facility] 7t [place] [address] Care Team Providers Care Plant Senior Manager Name Role Phone Bharati Soriano MD Primary Care Provider [phone] Vasyl Boles MD Unavailable [phone] Amador Green MD Unavailable Babak Sparks MD Unavailable [phone] Reason for Visit * Reason Onset Date Comments Med Refill 05/03/2024 Encounter Details Date Type Department Care Team (Late st Contact Info) Description 05/03/2024 Telephone [facility] MEDICINE 230 [place], [place] [phone] Bharati Soriano MD 230 [place], [place] [phone] Med Refill Social History Tobacco Use Types [...] 5-325 MG tablet To be sent to: [facility]/pharmacy #[id number] [place] [address] documented in this encounter Plan of Treatment Upcoming Encounters Date Type Department Care Team (Late st Contact Info) Description 12/19/2024 11:00 AM EDT Office Visit [facility] MEDICINE [address] [place] [address] 01/17/2025 3:15 PM EDT Office Visit [facility] MEDICINE [address] [place] [address] Bharati Soriano MD [address] [place] [address] 03/14/2025 1:00 PM EDT Office Visit [facility] ADULT DENTAL [address] [place] [address] Elo Mahoney 230 [place] [address] documented as of this encounter Visit Diagnoses Not on filedocumented in this encounter Additional Health Concerns Assessment Noted Time PHQ-9 Depression Total Score: 1 01/14/20 24 10:00 AM EDT documented as of this encounter Care Teams Plant Senior Manager Relationship Specialty Start Date End Date Bharati Soriano MD 230 [place] [address] PCP - General Family Medicine 06/14/18 Vasyl Boles MD [address] [place] [address] [address] [place] [phone] Gastroenterology 06/20/24 Amador Green MD [address] [place] [address] Rheumatology 09/18/24 Babak Sparks MD [address] [place] [address] [address] [place] [address] Endocrinology 10/17/24 documented as of this encounter
--- OUTSIDE RECORDS SUMMARY | 2024-10-17 14:54 | XMS_ITS | Clinical Summary ---
Author Organization [facility] Address [address] [place] [address] Care Team Providers Care Operations Mgr Name Role Phone Bharati Soriano MD [...] Vaccine: 50+ Years Completed 05/01/2020, 05/01/2020, 07/28/2018 Pneumococcal Vaccine: Peds ( 0 to 5 Years) and At-Risk Patients (6 to 49 Years) Discontinued 05/01/2020, 05/01/2020, 07/28/2018 Influenza Vaccine Completed 07/12/2024, [...] Recently Relevant to Health Maintenance Care Teams Operations Mgr Relationship Specialty Start Date End Date Bharati Soriano MD PCP - General 06/24/20
--- OUTSIDE RECORDS SUMMARY | 2024-10-17 14:54 | XMS_ITS | Encounter Summary ---
Author Organization [employer] Address [address] [facility] 7t [place] [address] Care Team Providers Care Pattern Grader Cutter Name Role Phone Bharati Soriano MD Primary Care Provider [phone] Vasyl Boles MD Unavailable Amador Green MD Unavailable [phone] Babak Sparks MD Unavailable [phone] Reason for Visit * Reason Comments Med Refill Encounter Details Date Type Department Care Team (Late st Contact Info) Description 07/02/2023 Refill [facility] MEDICINE 230 [place], [place] [phone] Bharati Soriano MD 230 [place], [place] [phone] Social History Tobacco Use Types Packs/Day Years [...] Description 12/19/2024 11:00 AM EDT Office Visit [facility] MEDICINE [address] [place] [address] 01/17/2025 3:15 PM EDT Office Visit [facility] MEDICINE [address] [place] [address] Bharati Soriano MD [address] [place] [address] 03/14/2025 1:00 PM EDT Office Visit [facility] ADULT DENTAL [address] [place] [address] Denzel, Elo [address] [place] [address] documented as of this encounter Visit Diagnoses Not on filedocumented in this encounter Additional Health Concerns Assessment Noted Time PHQ-9 Depression Total Score: 0 10/16/19 23 2:27 PM EDT documented as of this encounter Care Teams Pattern Grader Cutter Relationship Specialty Start Date End Date Bharati Soriano MD [address] [place] [address] PCP - General Family Medicine 06/14/18 Vasyl Boles MD [address] [place] [address] [place] [phone] Gastroenterology 06/20/24 Amador Green MD [address] [place] [address] Rheumatology 09/18/24 Babak Sparks MD 10 [facility] [address] [place] [address] Endocrinology 10/17/24 documented as of this encounter
--- OUTSIDE RECORDS SUMMARY | 2024-10-17 14:54 | XMS_ITS | Encounter Summary ---
Author Organization [employer] Address [address] [facility] 7t [place] [address] Care Team Providers Care Underwater Roboticist Name Role Phone Bharati Soriano MD Primary Care Provider [phone] Vasyl Boles MD Unavailable [phone] Amador Green MD Unavailable [phone] Babak Sparks MD Unavailable [phone] Reason for Visit * Reason Comments Med Refill Encounter Details Date Type Department Care Team (Late st Contact Info) Description 07/04/2023 Refill [facility] [address] [place], [place] [phone] Bharati Soriano MD [address] [place], [place] [phone] Acquired hypothyroidism; Dyslipidemia Social History Tobacco Use [...] Description 12/19/2024 11:00 AM EDT Office Visit [facility] [address] [place] [address] 01/17/2025 3:15 PM EDT Office Visit [facility] [address] [place] [address] Bharati Soriano MD [address] [place] [address] 03/14/2025 1:00 PM EDT Office Visit [facility] ADULT DENTAL [address] [place] [address] [employer] [address] [place] [address] documented as of this encounter Visit Diagnoses Diagnosis Acquired hypothyroidism Unspecified hypothyroidism Dyslipidemia Other and unspecified hyperlipidemia documented in this encounter Additional Health Concerns Assessment Noted Time PHQ-9 Depression Total Score: 0 10/16/19 23 2:27 PM EDT documented as of this encounter Care Teams Underwater Roboticist Relationship Specialty Start Date End Date Bharati Soriano MD [address] [place] [address] PCP - General Family Medicine 06/14/18 Vasyl Boles MD [address] [place] [address] [place] [phone] Gastroenterology 06/20/24 Amador Green MD [address] [place] [address] Rheumatology 09/18/24 Babak Sparks MD [address] [place] [address] Endocrinology 10/17/24 documented as of this encounter
--- OUTSIDE RECORDS SUMMARY | 2024-10-17 14:54 | XMS_ITS | Encounter Summary ---
Author Organization [employer] Address [address] [facility] 7t [place] [address] Care Team Providers Care Safety Aide Name Role Phone Bharati Soriano MD Primary Care Provider [phone] Vasyl Boles MD Unavailable [phone] Amador Green MD Unavailable [phone] Babak Sparks MD Unavailable [phone] Reason for Visit * Reason Comments Med Refill Encounter Details Date Type Department Care Team (Late st Contact Info) Description 06/18/2023 Refill [facility] MED[facility]INE [address] [place], [place] [phone] Bharati Soriano MD [address] [place], [place] [phone] Dyslipidemia; Acquired hypothyroidism Social History Tobacco Use [...] Description 12/19/2024 11:00 AM EDT Office Visit [facility] [address] [place] [address] 01/17/2025 3:15 PM EDT Office Visit [facility] MED[facility]INE [address] [place] [address] Bharati Soriano MD [address] [place] [address] 03/14/2025 1:00 PM EDT Office Visit [facility] ADULT DENTAL [address] [place] [address] [employer] [address] [place] [address] documented as of this encounter Visit Diagnoses Diagnosis Dyslipidemia Other and unspecified hyperlipidemia Acquired hypothyroidism Unspecified hypothyroidism documented in this encounter Additional Health Concerns Assessment Noted Time PHQ-9 Depression Total Score: 0 10/16/19 23 2:27 PM EDT documented as of this encounter Care Teams Safety Aide Relationship Specialty Start Date End Date Bharati Soriano MD [address] [place] [address] PCP - General Family Medicine 06/14/18 Vasyl Boles MD [address] [place] [address] [place] [phone] Gastroenterology 06/20/24 Amador Green MD [address] [place] [address] Rheumatology 09/18/24 Babak Sparks MD [address] [place] [address] Endocrinology 10/17/24 documented as of this encounter
--- OUTSIDE RECORDS SUMMARY | 2024-10-17 14:54 | XMS_ITS | Encounter Summary ---
Author Organization [employer] Address [address] [facility] 7t [place] [address] Care Team Providers Care Community Relations Representative Name Role Phone Bharati Soriano MD Primary Care Provider [phone]- [phone] Vasyl Boles MD Unavailable [phone] Amador Green MD Unavailable Babak Sparks MD Unavailable [phone] Reason for Visit * Reason Onset Date Comments Med Refill 05/03/2023 Encounter Details Date Type Department Care Team (Late st Contact Info) Description 05/03/2023 Telephone [facility] MED[facility]INE [address] [place], [place] [phone] Bharati Soriano MD [address] [place], [place] [phone] Med Refill Social History Tobacco Use Types [...] Description 12/19/2024 11:00 AM EDT Office Visit [facility] [address] [place] [address] 01/17/2025 3:15 PM EDT Office Visit [facility] [address] [place] [address] Bharati Soriano MD [address] [place] [address] 03/14/2025 1:00 PM EDT Office Visit [facility] ADULT DENTAL [address] [place] [address] Elo Mahoney [address] [place] [address] documented as of this encounter Visit Diagnoses Not on filedocumented in this encounter Additional Health Concerns Assessment Noted Time PHQ-9 Depression Total Score: 0 10/16/19 2:27 PM EDT documented as of this encounter Care Teams Community Relations Representative Relationship Specialty Start Date End Date Bharati Soriano MD [address] [place] [address] PCP - General Family Medicine 06/14/18 Vasyl Boles MD [address] [place] [address] [address] [place] [phone] Gastroenterology 06/20/24 [place] [address] [place] [phone] Rheumatology 09/18/24 Babak Sparks MD [address] [place] [address] Drive [address] [place] [address] Endocrinology 10/17/24 documented as of this encounter
== END 2024-10-17 14:24 | disposition home or self-care (01) ==
LOC: HO.ENCR 13:35
PROVIDERS: PCP Family Medicine; Visit Provider Internal Medicine Endocrinology, Diabetes & Metabolism
DX: M81.0 Age-related osteoporosis without current pathological fracture (principal)
CPT/HCPCS: 99204

== ENCOUNTER → 2024-10-17 13:34 | Outpatient (BNVA) | payer MEDICARE, MEDICAID, SELFPAY | PROVIDERS: PCP Family Medicine; Visit Provider Internal Medicine Endocrinology, Diabetes & Metabolism | DX: M81.0 Age-related osteoporosis without current pathological fracture (principal) | CPT/HCPCS: 99202 ==

== ENCOUNTER 2024-10-19 13:55 | Outpatient (REF) | payer MEDICARE, MEDICAID, SELFPAY ==
[2024-10-19 14:34] LABS: Phosphorus 3.3 mg/dL (2.7-4.5)
--- OUTSIDE RECORDS SUMMARY | 2024-10-19 14:50 | XMS_ITS | Encounter Summary ---
Author Organization [employer] Address [address] [facility] 7t [place] [address] Care Team Providers Care Health Services Administrator Name Role Phone Bharati Soriano MD Primary Care Provider [phone]- [phone] Vasyl Boles MD Unavailable Amador Green MD Unavailable Babak Sparks MD Unavailable [phone] Encounter Details Date Type Department Care Team (Late st Contact Info) Description 06/12/2022 Orders Only [facility]EDS [address] [place] [address] Leena Verdin ANP [address] [place], [place] [phone] Social History Tobacco Use Types Packs/Day Years [...] 12/19/2024 11:00 AM EDT Office Visit [facility] MED[facility] [address] [place] [phone] 01/17/2025 3:15 PM EDT Office Visit [facility] MED[facility] [address] [place] [address] [phone] Bharati Soriano MD [address] [place] [address] 03/14/2025 1:00 PM EDT Office Visit [facility] ADULT DENTAL [address] [place], [place] [phone] Elo Mahoney [address] [place], [place] [phone] documented as of this encounter Visit Diagnoses Not on filedocumented in this encounter Care Teams Health Services Administrator Relationship Specialty Start Date End Date Bharati Soriano MD [address] [place], [place] [phone] PCP - General Family Medicine 06/14/18 Vasyl Boles MD [address] [place] [address] [address] [place] [phone] Gastroenterology 06/20/24 Amador Green MD [address] [place] [address] Rheumatology 09/18/24 Babak Sparks MD [address] [place] [address] Drive [address] [place] [address] Endocrinology 10/17/24 documented as of this encounter
--- OUTSIDE RECORDS SUMMARY | 2024-10-19 14:50 | XMS_ITS | Clinical Summary ---
Author Organization [employer] Address [address] [facility] 7t [place] [address] Care Team Providers Care Greens Picker Name Role Phone Bharati Soriano MD Primary Care Provider [phone] Vasyl Boles MD Unavailable Amador Green MD Unavailable [phone] Babak Sparks MD Unavailable [phone] Allergies Active Allergy Reactions Criticality Noted Date [...] Active losartan (Cozaar) 25 MG tabletIndications :Primary hypertension,Configuration Technician mayte renal impairment, stage 2 (mild) Take [...] equivalent combination of moderate- and vigorous-intensity activity manager terminal (current) use of opiate analgesic 03/15 Overview (09/19/2024): Medication: Percocet 5-325mg Q6H PRN Indication: lumbar radiculopathy Last TRANSIT OPERATIONS SUPERVISOR Agreement: 07/11/24 Assessment & Plan (09/19/2024 2:07 PM EDT): Timeline: - 09/19/24: Group - pill count as expected. Utox positive BZO, confirmatory testing sent out Assessment & Plan (07/13/2024 4:18 PM EST): Medication: Percocet 5-325mg Q6H PRN Indication: lumbar radiculopathy Last TRANSIT OPERATIONS SUPERVISOR Agreement: 08/24/23 Assessment & Plan (04/04/2024 5:26 [...] Overview (07/12/2024): Lab Results Component Value Date [id number] 35.8 04/26/2024 Insomnia 12/22/2023 Normal oral exam 05/12/2023 Overview (05/12/2023): -Normal growth and development. -Anticipatory guidance discussed. -Preventative care / harm reduction discussed. Assessment & Plan (05/12/2023 10:18 AM EST): -Normal growth and development. -Anticipatory guidance discussed. -Preventative care / harm reduction discussed. Other specified health status 04/24/2023 Overview (07/12/2024): -next comprehensive annual evaluation due after 07/12/25 -eye care facilitated by [facility] -dental home is [facility] -Health care proxy given and filed 12/22/23 Assessment & Plan (07/12/2024 4:10 PM EST): -next comprehensive annual evaluation due after 07/12/25 -eye care facilitated by [facility] -dental home is [facility] -Health care proxy given and filed 12/22/23 Assessment & Plan (12/22/2023 2:27 PM EDT): -next physical exam due after 05/12/2024 -eye care facilitated by [facility] -dental home is [facility] -Health care proxy given and [...] Sicca symptoms, positive LUISITO, 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 Followed by rheumatology. Lat note from Amador Green from 09/14/24 reviewed. 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 Followed by rheumatology. Lat note from Dr. Flores 04/06/23 reviewed. 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 Followed by rheumatology. Lat note from Dr. Flores 04/06/23 reviewed. 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 Followed by rheumatology. Lat note from Dr. Flores 04/06/23 reviewed. 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 Followed by rheumatology. -Plaquenil 200mg BID started 04/2018 -continue regular eye exams -s/p flu vaccine 02/2020 done at [facility] 23 04/2019 Chronic diarrhea 05/08/2022 Osteoporosis [...] opioid. Confirmatory testing sent to lab. See wound care physician. Assessment & Plan (07/12/2024 4:09 PM EST): [...] -UTOX and pill count as expected. See wound care physician for further details -Encouraged to cont with [...] Type Department Care Team Description 10/11/2024 Telephone [facility] [address] [place] [address] Bharati Soriano MD December Recalls 10/11/2024 Travel 10/05/2024 Orders Only [facility] [address] [place] [address] Bharati Soriano MD Osteoporosis, unspecified osteoporosis type, unspecified pathological fracture presence (Primary Dx) 10/04/[address] [address] Bharati Soriano MD DEXA results 10/03/2024 Refill [facility] PEDS [address] [place] [address] Jocelyn Randall, RN Pain 09/29/[address] [address] Bharati Soriano MD Med Refill 09/25/2024 Refill [facility] [address] [place] [address] Bharati Soriano MD Chronic diarrhea; Gastroesophageal reflux disease without esophagitis 09/19/2024 11:00 AM EDT Office Visit [facility] [address] [place] [address] Mily Alfredo, BRENDON Chronic low back pain, unspecified back pain laterality, unspecified whether sciatica present (Primary Dx); alf (current) use of opiate analgesic 09/19/2024 Travel 09/07/2024 1:00 PM EDT Office Visit [facility] ADULT DENTAL [address] [place] [address] Elo Mahoney Crowded teeth (Primary Dx); Dental plaque; Excessive attrition of teeth, limited to enamel; Normal oral exam 09/07/2024 Refill [facility] [address] [place] [address] Bharati Soriano MD Mild intermittent asthma, unspecified whether complicated; Acquired hypothyroidism 09/06/2024 Telephone [facility] [address] [place] [address] Bharati Soriano MD Durable Medical Equipment 09/04/2024 Telephone [facility] [address] [place] [address] Bharati Soriano MD DME from [employer] 08/31/2024 Telephone [facility] [address] [place] [address] Bharati Soriano MD [employer] (Underwear, prevail nu-fit med) 08/31/2024 Refill [facility] [address] [place] [address] Bharati Soriano MD Pain 08/25/2024 Population Health Risk Score [facility] () Department [address] [place] [phone] Provider, Population Health Generic 08/09/2024 Telephone [facility] [address] [place] [address] Bharati Soriano MD 08/02/2024 Orders Only [facility] [address] [place] [address] Bharati Soriano MD Primary hypertension; Chronic renal impairment, stage 2 (mild) 08/01/2024 Orders Only [facility] [address] [place] [address] Rosi Vergara MD Primary hypertension; Chronic renal impairment, stage 2 (mild) 08/01/2024 Orders Only [facility] [address] [place] [address] Bharati Soriano MD Primary hypertension; Chronic renal impairment, stage 2 (mild) 07/30/2024 Refill [facility] [address] [place] [address] Bharati Soriano MD Gastroesophageal reflux disease without esophagitis 07/26/2024 Refill [facility] [address] [place] [address] Bharati Soriano MD Pain 07/24/2024 Telephone [facility] [address] [place], [place] [phone] Bharati Soriano MD Prior Authorization (Lidocaine 5% [...] 12/19/2024 11:00 AM EDT Office Visit [facility] [address] [place] [address] 01/17/2025 3:15 PM EDT Office Visit [facility] [address] [place] [address] Bharati Soriano MD [address] [place] [address] 03/14/2025 1:00 PM EDT Office Visit [facility] ADULT DENTAL [address] [place] [address] Al Mahoneyaris [address] [place] [address] Health Maintenance Due Date Last Done Comments [...] QUANTITATIVE, URINE Routine 09/19/2024 12:49 PM EDT manager terminal (current) use of opiate analgesic Chronic low back pain, unspecified back pain laterality, unspecified whether sciatica present POCT MADHU-14 URINE DRUG SCREEN Routine 09/19/2024 11:42 AM EDT alf (current) use of opiate analgesic Chronic low back pain, unspecified back pain laterality, unspecified whether sciatica present POCT MADHU-14 URINE DRUG SCREEN Routine 09/19/2024 11:40 AM EDT alf (current) use of opiate [...] 12:49 PM EDT) Nordiazepam, GCMS Urine NEGATIVE [facility] Comment:REFERENCE RANGE: <50 ng/mL Oxazepam, GCMS Urine NEGATIVE [facility] Comment:REFERENCE RANGE: <50 ng/mL Lorazepam GCMS Urine NEGATIVE [facility] Comment:REFERENCE RANGE: <50 ng/mL Alprazolam, GCMS Urine NEGATIVE [facility] Comment:REFERENCE RANGE: <25 ng/mL Alphahydroxytriazolam, GCMS Ur NEGATIVE [facility] Comment:REFERENCE RANGE: <50 ng/mL Temazepam, GCMS Urine NEGATIVE [facility] Comment:REFERENCE RANGE: <50 ng/mL Alphahydroxymidazolam,GC MS Ur NEGATIVE [facility] Comment:REFERENCE RANGE: <50 ng/mL Aminoclonazepam, GCMS Urine NEGATIVE [facility] Comment:REFERENCE RANGE: <25 ng/mL Flurazepam Metabolite,GCMS Ur NEGATIVE [facility] Comment:REFERENCE RANGE: <50 ng/mL Benzodiazepines Comments SEE NOTE [facility] Comment:This drug testing is for medical treatment only. Analysiswas performed as non-forensic testing and these resultsshould be used only by healthcare providers to renderdiagnosis or treatment, or to monitor progress of medicalconditions.LDT Notes:Confirmation tests were developed and their analyticalperformance characteristics have been determined by [employer]. It has not been cleared or approved by the FDA.This assay has been validated pursuant to the CLIAregulations and is used for clinical purposes.Healthcare Providers needing Interpretation assistance,please contact us at [phone] ( ) M-F,8am to 10pm EST Urine (Urine, Random) 09/19/2024 12:49 PM EDT 09/19/2024 4:56 PM EDT us Bharati Soriano MD LAB URINE ORDERABLES Final Result [facility] [address] [place] [address] [phone] * (ABNORMAL) POCT MADHU-14 Urine Drug Screen (09/19/2024 11:42 AM EDT) Only the most recent of2 resultswithin the time period is included. THC Positive Benzodiazepines Screen, Urine Positive Oxycodone Screen, Urine Positive Urine Urine specimen obtained by clean catch procedure / Unknown 09/19/2024 11:42 AM EDT Narrative Jocelyn Randall RN - 09/19/2024 11:42 AM EDT .UTOX cup Lot#[id number] Exp. 01/31/26 Internal Pass Control us Mily Juni MANAGER BATTERY POINT OF CARE TEST ENTER/EDIT ORDERABLES Final Result * Referral to Rheumatology (09/11/2024) us Bharati Soriano MD OUTPATIENT REFERRAL ORDERA BLES Final Result * BD DEXA Axial (08/22/2024 11:00 AM EDT) Anatomical Region Laterality Modality Body Radiographic Na ging 08/22/2024 11:0 0 AM EDT Narrative 08/22/2024 12:56 PM EDT ? [facility] [place] ? [address] ?[place] [address] ? Mammography Report ? Signed ? Patient: Fink Fink,Sara ?MR#: ?? [id number] ? : 1955 ?Acct:[id number] ? Age/Sex: 68 / F ?ADM Date: 03/11/25 ? Loc: HO.MAMMO ? Attending Dr: Bharati Soriano MD ? Ordering Physician: Bharati Soriano MD ?Results: ? Date of Service: //25 ?Follow Up: ? Procedure(s): XR DEXA axial skeleton ?? Accession Number(s): [id number] ? cc: Bharati Soriano MD ? EXAMINATION: ??DXA BONE DENSITY AXIAL ? HISTORY: ??Estrogen deficiency ? TECHNIQUE: Gogoyoko Dual energy absorptiometry (DEXA) ?? of the [...] the [employer]'s ?? [place] for Metabolic Bone Disease, a World Health Organization (WHO) ?? Collaborating Center. ? Electronically signed by: ??Babak Mccrary MD ??08/22/2024 12:53 PM EDT ?? RP ? Dictated By: ?Babak Mccrary MD ? Signed By: ?<Electronically signed by Babak Mccrary MD in OV> ?08/22/24 1253 ? DD/ 1100 ? TD/TT: 08/22/24 1110 ? Talent Engineer: ? Procedure Note Donotuseinterpreter, Image - 08/22/2024 [place] [facility] [address] [place], [place] [address] Mammography Report Signed Patient: Davis LancasteradMR#: [id number] : 4Acct:[id number] Age/Sex: 68 / FADM Date: 08/22/24 Loc: HO.MAMMO Attending Dr: Bharati Soriano MD Ordering Physician: Bharati Sorianoults: Date of Service: 08/22/24Follow Up: Procedure(s): XR DEXA axial skeleton Accession Number(s): [id number] cc: Bharati Soriano MD EXAMINATION: DXA BONE DENSITY AXIAL HISTORY: Estrogen deficiency TECHNIQUE: Gogoyoko Dual energy absorptiometry (DEXA) of the lumbar [...] is a trademark of the [employer]'s [place] for Metabolic Bone Disease, a World Health Organization (WHO) Collaborating Center. Electronically signed by: Babak Mccrary MD 08/22/2024 12:53 PM EDT RP Dictated By: Babak Mccrary MD Signed By: <Electronically signed by Babak Mccrary MD in OV> 08/22/24 1253 DD/ 1100 TD/TT: 08/22/24 1110 Talent Engineer: us Bharati Soriano MD IMG DXA PROCEDURES Final R esult * US Abdomen Complete (08/09/2024 8:38 AM EST) Anatomical Region Laterality Modality Abdomen Ultrasound 08/09/2024 8:38 AM EST Narrative 08/09/2024 10:07 AM EST ? [facility] ?[address] ?[place] [address] ? Ultrasound Report ? Signed ? Patient: Fink Fink,Sara ?MR#: ?? [id number] ? : 1955 ?Acct:[id number] ? Age/Sex: 68 / F ?ADM Date: 02/26/25 ? Loc: HO.US ? Attending Dr: Bharati Soriano MD ? Ordering Physician: Bharati Soriano MD ?? Date of Service: 08/09/24 ?? Procedure(s): US abdomen complete ?? Accession Number(s): [id number] ? cc: Bharati Soriano MD ? EXAMINATION: [...] DD/ 0838 ? TD/TT: 08/09/24 0848 ? Talent Engineer: ? Procedure Note Donotuseinterpreter, Image - 08/09/[address] [address] Ultrasound Report Signed Patient: Davis LancasetradMR#: [id number] : 4Acct:[id number] Age/Sex: 68 / FADM Date: 08/09/24 Loc: HO.US Attending Dr: Bharati Soriano MD Ordering Physician: Bharati Soriano MD Date of Service: 08/09/24 Procedure(s): US abdomen complete Accession Number(s): [id number] cc: Bharati Soriano MD EXAMINATION: US ABDOMEN [...] 08/09/24 1004 DD/ 0838 TD/TT: 08/09/24 0848 Talent Engineer: Bharati Soriano MD IMG US PROCEDURES Final Re sult * Lipid Panel, Standard (04/26/2024 10:02 AM EST) Triglycerides 118 <150 mg/dL [facility] Comment:Desirable Triglyceri de: less than 150 mg/dLBorderline High Triglyceride 150-199 mg/dLHigh Triglyceride: 200-499 mg/dLVery High Triglyceride: greater than or equal to 5OO mg/dL Cholesterol 173 <200 mg/dL [facility] Comment:Desirable Cholestero l: less than 200 mg/dLBorderline High Cholesterol: 200-239 mg/dLHigh Cholesterol: greater than 239 mg/dL LDL Cholesterol Calculated 84 <100 mg/dL [facility] Comment:Desirable LDL: less than 100 mg/dLNear Optimal/Above Optimal LDL: 110- 129 mg/dLBorderline High LDL: 130-159 mg/dLHigh LDL: 160-189 mg/dLVery High LDL: greater than or equal to 190 mg/dL HDL Cholesterol 66 >40 mg/dL [facility] Comment:Desirable HDL: great er than 40 mg/dL Note: This HDL assay may give artificially low results in patients with liver disease. Blood Venous blood specimen / Unknown 04/26/2024 10:02 AM EST 04/26/2024 10:02 AM EST Bharati Soriano MD LAB BLOOD ORDERABLES Final Result [facility] [address] [place] [phone] * (ABNORMAL) Mammography (09/29/2023 11:17 AM [...] Phone Billing Address Personal/Family Self [address] [place] [address] [facility] STANDARD [place] [phone] [facility] STAND ADULT Advance Directives Documents on File Type Date Recorded Patient National Sales Expl anation Advance Directives and Living Will 12/22/2023 Health Care Proxy 12/22/23 Care Teams Greens Picker Relationship Specialty Start Date End Date [place], [place] Bharati [address] [place] [address] PCP - General Family Medicine 06/14/18 Vasyl Boles MD [address] [place] [address] DR [facility] [address] [place] [phone] Gastroenterology 06/20/24 [place] [address] [place] [phone] Rheumatology 09/18/24 Babak Sparks MD [address] [place] [address] Drive [address] [place] [address] [facility] [place] [facility] 10/17/24
--- OUTSIDE RECORDS SUMMARY | 2024-10-19 14:51 | XMS_ITS | Encounter Summary ---
Author Organization [employer] Address [address] [facility] 7t [place] [address] Care Team Providers Care Food Dehydrator Operator Name Role Phone Bhartai Soriano MD Primary Care Provider [phone] Vasyl Boles MD Unavailable Amador Green MD Unavailable Babak Sparks MD Unavailable [phone] Reason for Visit * Reason Comments Med Refill Encounter Details Date Type Department Care Team (Late st Contact Info) Description 07/02/2023 Refill [facility] [address] [place], [place] [phone] Bharati Soriano MD [address] [place], [place] [phone] Social History Tobacco Use Types Packs/Day Years [...] Description 12/19/2024 11:00 AM EDT Office Visit [facility] [address] [place] [address] 01/17/2025 3:15 PM EDT Office Visit [facility] [address] [place] [address] Bharati Soriano MD [address] [place] [address] 03/14/2025 1:00 PM EDT Office Visit [facility] ADULT DENTAL [address] [place] [address] Denzel, Elo [address] [place] [address] documented as of this encounter Visit Diagnoses Not on filedocumented in this encounter Additional Health Concerns Assessment Noted Time PHQ-9 Depression Total Score: 0 10/16/19 23 2:27 PM EDT documented as of this encounter Care Teams Food Dehydrator Operator Relationship Specialty Start Date End Date Bharati Soriano MD [address] [place] [address] PCP - General Family Medicine 06/14/18 Vasyl Boles MD [address] [place] [address] [place] [phone] Gastroenterology 06/20/24 Amador Green MD [address] [place] [address] Rheumatology 09/18/24 Babak Sparks MD [address] [facility] [address] [place] [address] Endocrinology 10/17/24 documented as of this encounter
--- OUTSIDE RECORDS SUMMARY | 2024-10-19 14:51 | XMS_ITS | Encounter Summary ---
Author Organization [employer] Address [address] [facility] 7t [place] [address] Care Team Providers Care Library Serials Assistant Name Role Phone Bharati Soriano MD Primary Care Provider [phone] Vasyl Boles MD Unavailable [phone] Amador Green MD Unavailable [phone] Babak Sparks MD Unavailable [phone] Reason for Visit * Reason Onset Date Comments Med Refill 05/03/2024 Encounter Details Date Type Department Care Team (Late st Contact Info) Description 05/03/2024 Telephone [facility] [address] [place], [place] [phone] Bharati Soriano MD [address] [place], [place] [phone] Med Refill Social History Tobacco Use Types [...] 5-325 MG tablet To be sent to: [facility]/pharmacy #[id number] [place] [address] documented in this encounter Plan of Treatment Upcoming Encounters Date Type Department Care Team (Late st Contact Info) Description 12/19/2024 11:00 AM EDT Office Visit [facility] MED[facility]INE [address] [place] [address] 01/17/2025 3:15 PM EDT Office Visit [facility] MED[facility] [address] [place] [address] Bharati Soriano MD [address] [place] [address] 03/14/2025 1:00 PM EDT Office Visit [facility] ADULT DENTAL [address] [place] [address] Elo Mahoney [address] [place] [address] documented as of this encounter Visit Diagnoses Not on filedocumented in this encounter Additional Health Concerns Assessment Noted Time PHQ-9 Depression Total Score: 1 01/14/20 24 10:00 AM EDT documented as of this encounter Care Teams Library Serials Assistant Relationship Specialty Start Date End Date Bharati Soriano MD [address] [place] [address] PCP - General Family Medicine 06/14/18 Vasyl Boles MD [address] [place] [address] [address] [place] [phone] Gastroenterology 06/20/24 Amador Green MD [address] [place] [phone] Rheumatology 09/18/24 Babak Sparks MD [address] [place] [address] Drive [address] [place] [address] Endocrinology 10/17/24 documented as of this encounter
--- OUTSIDE RECORDS SUMMARY | 2024-10-19 14:51 | XMS_ITS | Encounter Summary ---
Author Organization [employer] Address [address] [facility] 7t [place] [address] Care Team Providers Care Barrel Racer Name Role Phone Bharati Soriano MD Primary Care Provider [phone] Vasyl Boles MD Unavailable Amador Green MD Unavailable Babak Sparks MD Unavailable Reason for Visit * Reason Comments Med Refill Encounter Details Date Type Department Care Team (Late st Contact Info) Description 11/17/2022 Refill [facility] [address] [place], [place] [phone] Bharati Soriano MD [address] [place], [place] [phone] Wheeze Social History Tobacco Use Types Packs/Day [...] 12/19/2024 11:00 AM EDT Office Visit [facility] MEDICINE [address] [place] [address] 01/17/2025 3:15 PM EDT Office Visit [facility] MED[facility] [address] [place] [address] Bharati Soriano MD [address] [place] [address] 03/14/2025 1:00 PM EDT Office Visit [facility] ADULT DENTAL [address] [place] [address] Denzel Elo [address] [place] [address] documented as of this encounter Visit Diagnoses Diagnosis Wheeze Wheezing documented in this encounter Additional Health Concerns Assessment Noted Time PHQ-9 Depression Total Score: 0 10/16/19 23 2:27 PM EDT documented as of this encounter Care Teams Barrel Racer Relationship Specialty Start Date End Date Bharati Soriano MD [address] [place] [address] PCP - General Family Medicine 06/14/18 Vasyl Boles MD [address] [place] [address] [address] [place] [address] Gastroenterology 06/20/24 Amador Green MD [address] [place] [address] Rheumatology 09/18/24 Babak Sparks MD [address] [place] [address] Drive [address] [place] [address] Endocrinology 10/17/24 documented as of this encounter
--- OUTSIDE RECORDS SUMMARY | 2024-10-19 14:51 | XMS_ITS | Clinical Summary ---
Author Organization [facility] Facility Address [address] [place] [address] Care Team Providers Care Meat Stocker Name Role Phone Bharati Soriano MD [...] Recently Relevant to Health Maintenance Care Teams Meat Stocker Relationship Specialty Start Date End Date Bharati Soriano MD PCP - General 06/24/20
--- OUTSIDE RECORDS SUMMARY | 2024-10-19 14:51 | XMS_ITS | Encounter Summary ---
Author Organization [employer] Address [address] [place] [address] 7t [place] [address] Care Team Providers Care Brinell Tester Name Role Phone Bharati Soriano MD Primary Care Provider Vasyl Boles MD Unavailable Amador Green MD Unavailable Babak Sparks MD Unavailable Encounter Details Date Type Department Care Team (Late st Contact Info) Description 08/11/2022 Abstract [facility] MED[facility]INE [address] [place] [address] Bharati Soriano MD [address] [place] [address] [phone] Social History Tobacco Use Types Packs/Day Years [...] Description 12/19/2024 11:00 AM EDT Office Visit [address] [phone] 01/17/2025 3:15 PM EDT Office Visit [address] [phone] Bharati Soriano MD 230 [place], [place] [phone] 03/14/2025 1:00 PM EDT Office Visit [facility] ADULT DENTAL 230 [place], [place] [phone] Elo Mahoney 230 [place] [address] documented as of this encounter Procedures Procedure Name Priority Date/Time Associated Diagnosis Comments PAP SMEAR Routine 03/14/2015 12:00 AM EDT documented in this encounter Results * Pap Smear (03/14/2015 12:00 AM EDT) Swab us Historical Provider LAB CYTOLOGY ORDERABLES F inal Result IMAGING documented in this encounter Visit Diagnoses Not on filedocumented in this encounter Care Teams Brinell Tester Relationship Specialty Start Date End Date Bharati Soriano MD 230 [place] [address] PCP - General Family Medicine 06/14/18 Vasyl Boles MD [address] [place] [address] [address] [place] [address] Gastroenterology 06/20/24 Amador Green MD [address] [place] [address] Rheumatology 09/18/24 Babak Sparks MD [address] [place] [address] Drive [address] [place], [place] [phone] Endocrinology 10/17/24 documented as of this encounter
--- OUTSIDE RECORDS SUMMARY | 2024-10-19 14:51 | XMS_ITS | Encounter Summary ---
Author Organization [employer] Address [address] [facility] 7t [place] [address] Care Team Providers Care Retail Advisor Name Role Phone Bharati Soriano MD Primary Care Provider + [phone] Vasyl Boles MD Unavailable Amador Green MD Unavailable [phone] Babak Sparks MD Unavailable [phone] Encounter Details Date Type Department Care Team (Latest Contact Info) Description 03/16/2022 Abstract [facility] CONVERSIONS Dental, Provider, DDS Social History [...] Description 12/19/2024 11:00 AM EDT Office Visit [facility] [address] [place] [address] 01/17/2025 3:15 PM EDT Office Visit [facility] [address] [place] [address] Bharati Soriano MD [address] [place] [address] 03/14/2025 1:00 PM EDT Office Visit [facility] ADULT DENTAL 230 [place] [address] Elo Mahoney 230 [place] [address] documented as of this encounter Visit Diagnoses Not on filedocumented in this encounter Care Teams Retail Advisor Relationship Specialty Start Date End Date Bharati Soriano MD 230 [place] [address] PCP - General Family Medicine 06/14/18 Vasyl Boles MD [address] [place] [address] DR [facility] 102 [place] [phone] Gastroenterology 06/20/24 Amador Green MD [address] [place] [address] Rheumatology 09/18/24 Babak Sparks MD [address] [place] [address] Drive [address] [place] [address] Endocrinology 10/17/24 documented as of this encounter
--- OUTSIDE RECORDS SUMMARY | 2024-10-19 14:51 | XMS_ITS ---
Demographics Address [address] [facility] 4L [place] [address] Mobile Preferred Language en Marital Status Unknown Shinto Affiliation Unknown Race White Ethnic Group or Author Organization [facility] Address [address] [place] [address] Care Team Providers Care Jack Spooler Tender Name Role Phone Bharati Soriano MD Primary Care Provider Becca vailable Ramana Bates, Vasyl Unavailable REASON FOR VISIT script for diapers Encounters Encounter Location Date Provider Diagnosis [facility] [address] [place] [address] 09/20/2023 Vasyl Boles Jr Plan Of Treatment No Information Progress Notes * MICHAEL RENDONADDOB:[birth year] (67 yo F)Acc No.[id number]:09/20/2023 Patient:?PATT RENDON :1955???Age:67 Y???Sex:Female Address:[address] [place] [address], [place], [address] * true * Date:? Generated for Printi junito/Fide/eTransmitting on:?10/19/2024 02:50 PM EDT
--- OUTSIDE RECORDS SUMMARY | 2024-10-19 14:51 | XMS_ITS | Encounter Summary ---
Author Organization [employer] Address [address] 7t [place] [address] Care Team Providers Care Statistics Intern Name Role Phone Bharati Soriano MD Primary Care Provider [phone]- [phone] Vasyl Boles MD Unavailable [phone] Amador Green MD Unavailable Babak Sparks MD Unavailable [phone] Encounter Details Date Type Department Care Team (Late st Contact Info) Description 09/29/2023 Abstract [facility] MEDICINE 230 [place], [place] [phone] Bharati Soriano MD 230 [place], [place] [phone] Social History Tobacco Use Types Packs/Day Years [...] Description 12/19/2024 11:00 AM EDT Office Visit [facility] MED[facility] [address] [place] [address] 01/17/2025 3:15 PM EDT Office Visit [facility] MED[facility] [address] [place] [address] Bharati Soriano MD 230 [place] [address] 03/14/2025 1:00 PM EDT Office Visit [facility] ADULT DENTAL 230 [place] [address] Denzel, Elo 230 [place] [address] documented as of this encounter Procedures Procedure [...] documented as of this encounter Care Teams Statistics Intern Relationship Specialty Start Date End Date Bharati Soriano MD 230 [place] [address] PCP - General Family Medicine 06/14/18 Vasyl Boles MD [address] [place] [address] [address] [place] [address] Gastroenterology 06/20/24 Amador Green MD [address] [place] [address] Rheumatology 09/18/24 Babak Sparks MD [address] [place] [address] Drive [address] [place] [address] Endocrinology 10/17/24 documented as of this encounter
--- OUTSIDE RECORDS SUMMARY | 2024-10-19 14:51 | XMS_ITS | Patient Health Record ---
Author Organization [facility] Address [address] [place] [address] Care Team Providers Care Cloth Tester Name Role Phone Bharati Soriano MD Primary Care Provider Vasyl Simon Jr Unavailable [phone] Allergies Allergen (clinical drug ingredient) Drug/Non [...] 100 MG TAKE 1 TABLET BY [place] [facility] EVERY DAY AT BEDTIME Oral for [...] Problem Status W/U Status Risk Notes Problem 296190865 Colon cancer screening (Z12.11) Active confirmed Problem 134254672 Radiation procti tis (K62.7) Active confirmed Problem 859351674 Gastroesophageal reflux disease without esophagitis (K21.9) Active confirmed Problem 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 Problem 84391816 Incontinence of feces, unspecified fecal incontinence type (R15.9) Active confirmed Plan Of Treatment Future Test Test Name Order Date COLONOSCOPY 07/14/2018 COLONOSCOPY 12/25/2021 Insurance Providers Payer Name Payer Address Payer Phone Subscriber Number Group Number Insured Name Patient Relationship to Insured Coverage Start Date Coverage End Date MEDICARE OF [place] [address] [place] [id number] PATT RENDON Self - patient is the insured MEDICAID OF [facility] [address] [place] [address] [id number] PATT RENDON Self - patient is the insured Medical (General) History Medical History History ICD Code hypertension 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
--- OUTSIDE RECORDS SUMMARY | 2024-10-19 14:51 | XMS_ITS | Encounter Summary ---
Author Organization [employer] Address [address] [place] [address] 7t [place] [address] Care Team Providers Care Millwright Apprentice Name Role Phone Bharati Soriano MD Primary Care Provider [phone]- [phone] Vasyl Boles MD Unavailable [phone] Amador Green MD Unavailable [phone] Babak Sparks MD Unavailable Reason for Visit * Reason Onset Date Comments Other 11/03/2022 Encounter Details Date Type Department Care Team (Late st Contact Info) Description 11/03/2022 Telephone [facility] MEDICINE 230 [place], [place] [phone] Bharati Soriano MD 230 [place], [place] [phone] Other Social History Tobacco Use Types Packs/Day [...] Tc from patient returning call back, medical technical writer didn't see any notes. documented in this encounter Plan of Treatment Upcoming Encounters Date Type Department Care Team (Late st Contact Info) Description 12/19/2024 11:00 AM EDT Office Visit [facility] MEDICINE 230 [place] [address] 01/17/2025 3:15 PM EDT Office Visit [facility] MEDICINE [address] [place] [address] Bharati Soriano MD [address] [place] [address] 03/14/2025 1:00 PM EDT Office Visit [facility] ADULT DENTAL 230 [place] [address] Denzel, Elo 230 [place] [address] documented as of this encounter Visit Diagnoses Not on filedocumented in this encounter Additional Health Concerns Assessment Noted Time PHQ-9 Depression Total Score: 0 10/16/19 23 2:27 PM EDT documented as of this encounter Care Teams Millwright Apprentice Relationship Specialty Start Date End Date Bharati Soriano MD [address] [place] [address] PCP - General Family Medicine 06/14/18 Vasyl Boles MD [address] [place] [address] Gastroenterology 06/20/24 Amador Green MD [address] [place] [address] Rheumatology 09/18/24 Babak Sparks MD [address] [facility] [address] [place] [address] Endocrinology 10/17/24 documented as of this encounter
--- OUTSIDE RECORDS SUMMARY | 2024-10-19 14:51 | XMS_ITS | Encounter Summary ---
Author Organization [employer] Address [address] [facility] 7t [place] [address] Care Team Providers Care Machine Inspector Name Role Phone Bharati Soriano MD Primary Care Provider [phone] Vasyl Boles MD Unavailable [phone] Amador Green MD Unavailable [phone] Babak Sparks MD Unavailable [phone] Reason for Visit * Reason Onset Date Comments Med Refill 05/03/2023 Encounter Details Date Type Department Care Team (Late st Contact Info) Description 05/03/2023 Telephone [facility] MEDICINE 230 [place], [place] [phone] Bharati Soriano MD 230 [place], [place] [phone] Med Refill Social History Tobacco Use Types [...] AM EDT Office Visit [facility] [address] [place] [address] 01/17/2025 3:15 PM EDT Office Visit [facility] MED[facility] [address] [place] [address] Bharati Soriano MD 230 [place] [address] 03/14/2025 1:00 PM EDT Office Visit [facility] ADULT DENTAL 230 [place] [address] Elo Mahoney 230 [place] [address] documented as of this encounter Visit Diagnoses Not on filedocumented in this encounter Additional Health Concerns Assessment Noted Time PHQ-9 Depression Total Score: 0 10/16/19 2:27 PM EDT documented as of this encounter Care Teams Machine Inspector Relationship Specialty Start Date End Date Bharati Soriano MD 230 [place] [address] PCP - General Family Medicine 06/14/18 Vasyl Boles MD [address] [place] [address] [address] [place] [address] Gastroenterology 06/20/24 [place] [address] [place] [address] Rheumatology 09/18/24 Babak Sparks MD [address] [place] [address] Drive [address] [place] [address] Endocrinology 10/17/24 documented as of this encounter
--- OUTSIDE RECORDS SUMMARY | 2024-10-19 14:51 | XMS_ITS | Encounter Summary ---
Author Organization [employer] Address [address] [facility] 7t [place] [address] Care Team Providers Care Housekeeper Supervisor Name Role Phone Bharati Soriano MD Primary Care Provider [phone] Vasyl Boles MD Unavailable [phone] Amador Green MD Unavailable [phone] Babak Sparks MD Unavailable [phone] Reason for Visit * Reason Comments Med Refill Encounter Details Date Type Department Care Team (Late st Contact Info) Description 06/18/2023 Refill [facility] MED[facility]INE 230 [place], [place] [phone] Bharati Soriano MD 230 [place], [place] [phone] Dyslipidemia; Acquired hypothyroidism Social History Tobacco Use [...] [facility] MEDICINE [address] [place] [address] 01/17/2025 3:15 PM EDT Office Visit [facility] MEDICINE [address] [place] [address] Bharati Soriano MD [address] [place] [address] 03/14/2025 1:00 PM EDT Office Visit [facility] ADULT DENTAL [address] [place] [address] DenzelAlElo [address] [place] [address] documented as of this encounter Visit Diagnoses Diagnosis Dyslipidemia Other and unspecified hyperlipidemia Acquired hypothyroidism Unspecified hypothyroidism documented in this encounter Additional Health Concerns Assessment Noted Time PHQ-9 Depression Total Score: 0 10/16/19 23 2:27 PM EDT documented as of this encounter Care Teams Housekeeper Supervisor Relationship Specialty Start Date End Date Bharati Soriano MD [address] [place] [address] PCP - General Family Medicine 06/14/18 Vasyl Boles MD [address] [place] [address] [place] [address] Gastroenterology 06/20/24 Amador Green MD [address] [place] [address] Rheumatology 09/18/24 Babak Sparks MD [address] [place] [address] Endocrinology 10/17/24 documented as of this encounter
--- OUTSIDE RECORDS SUMMARY | 2024-10-19 14:51 | XMS_ITS | Encounter Summary ---
Author Organization [employer] Address [address] [facility] 7t [place] [address] Care Team Providers Care Financial Services Technician Name Role Phone Bharati Soriano MD Primary Care Provider [phone]- [phone] Vasyl Boles MD Unavailable [phone] Amador Green MD Unavailable [phone] Babak Sparks MD Unavailable [phone] Reason for Visit * Reason Comments Med Refill Encounter Details Date Type Department Care Team (Late st Contact Info) Description 07/04/2023 Refill [facility] MEDICINE 230 [place], [place] [phone] Bharati Soriano MD 230 [place], [place] [phone] Acquired hypothyroidism; Dyslipidemia Social History Tobacco Use [...] 12/19/2024 11:00 AM EDT Office Visit [facility] MEDICINE [address] [place] [address] 01/17/2025 3:15 PM EDT Office Visit [facility] MEDICINE [address] [place] [address] Bharati Soriano MD [address] [place] [address] 03/14/2025 1:00 PM EDT Office Visit [facility] ADULT DENTAL [address] [place] [address] DenzelAlElo [address] [place] [address] documented as of this encounter Visit Diagnoses Diagnosis Acquired hypothyroidism Unspecified hypothyroidism Dyslipidemia Other and unspecified hyperlipidemia documented in this encounter Additional Health Concerns Assessment Noted Time PHQ-9 Depression Total Score: 0 10/16/19 23 2:27 PM EDT documented as of this encounter Care Teams Financial Services Technician Relationship Specialty Start Date End Date Bharati Soriano MD [address] [place] [address] PCP - General Family Medicine 06/14/18 Vasyl Boles MD [address] [place] [address] [place] [address] Gastroenterology 06/20/24 Amador Green MD [address] [place] [address] Rheumatology 09/18/24 Babak Sparks MD [address] [place] [address] Endocrinology 10/17/24 documented as of this encounter
--- OUTSIDE RECORDS SUMMARY | 2024-10-19 14:51 | XMS_ITS | Encounter Summary ---
Author Organization [employer] Address [address] [facility] 7t [place] [address] Care Team Providers Care Tile Designer Name Role Phone Bharati Soriano MD Primary Care Provider [phone]- [phone] Vasyl Boles MD Unavailable Amador Green MD Unavailable [phone] Babak Sparks MD Unavailable [phone] Reason for Visit * Reason Onset Date Comments Med Refill 02/01/2024 Encounter Details Date Type Department Care Team (Late st Contact Info) Description 02/01/2024 Telephone [facility] 230 [place], [place] [phone] Bharati Soriano MD 230 [place], [place] [phone] Med Refill Social History Tobacco Use Types [...] 5-325 MG tablet To be sent to: [facility]/pharmacy [address] [place] [address] - [address] [place] [address] documented in this encounter Plan of Treatment Upcoming Encounters Date Type Department Care Team (Late st Contact Info) Description 12/19/2024 11:00 AM EDT Office Visit [facility] [address] [place] [address] 01/17/2025 3:15 PM EDT Office Visit [facility] [address] [place] [address] Bharati Soriano MD [address] [place] [address] 03/14/2025 1:00 PM EDT Office Visit [facility] ADULT DENTAL [address] [place] [address] Elo Mahoney 230 [place] [address] documented as of this encounter Visit Diagnoses Not on filedocumented in this encounter Additional Health Concerns Assessment Noted Time PHQ-9 Depression Total Score: 1 01/14/20 24 10:00 AM EDT documented as of this encounter Care Teams Tile Designer Relationship Specialty Start Date End Date Bharati Soriano MD [address] [place] [address] PCP - General Family Medicine 06/14/18 Vasyl Boles MD [address] [place] [address] [address] [facility] [address] [place] [address] Gastroenterology 06/20/24 Amador Green MD [address] [place] [address] Rheumatology 09/18/24 Babak Sparks MD [address] [place] [address] Drive [address] [place] [address] Endocrinology 10/17/24 documented as of this encounter
--- OUTSIDE RECORDS SUMMARY | 2024-10-19 14:51 | XMS_ITS | Encounter Summary ---
Author Organization [employer] Address [address] [facility] 7t [place] [address] Care Team Providers Care Social Media Assistant Name Role Phone Bharati Soriano MD Primary Care Provider [phone]- [phone] Vasyl Boles MD Unavailable [phone] Amador Green MD Unavailable [phone] Babak Sparks MD Unavailable [phone] Reason for Visit * Reason Comments Med Refill Encounter Details Date Type Department Care Team (Late st Contact Info) Description 07/16/2024 Refill [facility] MED[facility]INE 230 [place], [place] [phone] Bharati Soriano MD 230 [place], [place] [phone] Mild intermittent asthma, unspecified whether complicated; Acquired [...] Description 12/19/2024 11:00 AM EDT Office Visit [facility] [address] [place] [address] 01/17/2025 3:15 PM EDT Office Visit [facility] [address] [place] [address] Bharati Soriano MD [address] [place] [address] 03/14/2025 1:00 PM EDT Office Visit [facility] ADULT DENTAL [address] [place] [address] Elo Mahoney 230 [place] [address] documented as of this encounter Visit Diagnoses Diagnosis Mild intermittent asthma, unspecified whether complicated Acquired hypothyroidism Unspecified hypothyroidism documented in this encounter Additional Health Concerns Assessment Noted Time PHQ-9 Depression Total Score: 1 01/14/20 24 10:00 AM EDT documented as of this encounter Care Teams Social Media Assistant Relationship Specialty Start Date End Date Bharati Soriano MD 230 [place] [address] PCP - General Family Medicine 06/14/18 Vasyl Boles MD [address] [place] [address] [address] [facility] 102 [place] [address] Gastroenterology 06/20/24 Amador Green MD [address] [place] [address] Rheumatology 09/18/24 Babak Sparks MD [address] [place] [address] Drive [address] [place] [address] Endocrinology 10/17/24 documented as of this encounter
--- OUTSIDE RECORDS SUMMARY | 2024-10-19 14:51 | XMS_ITS | Encounter Summary ---
Author Organization [employer] Address [address] [facility] 7t [place] [address] Care Team Providers Care Painter Maintenance Name Role Phone Bharati Soriano MD Primary Care Provider [phone]- [phone] Vasyl Boles MD Unavailable Amador Green MD Unavailable [phone] Babak Sparks MD Unavailable [phone] Reason for Visit * Reason Onset Date Comments requesting a call back 09/07/2022 Encounter Details Date Type Department Care Team (Late st Contact Info) Description 09/07/2022 Telephone [facility] MEDICINE 230 [place], [place] [phone] Bharati Soriano MD 230 [place] [address] requesting a call back Social History Tobacco [...] [facility] 230 [place] [address] 01/17/2025 3:15 PM EDT Office Visit [facility] MEDICINE 230 [place] [address] Bharati Soriano MD 230 [place] [address] 03/14/2025 1:00 PM EDT Office Visit [facility] ADULT DENTAL 230 [place] [address] Denzel, Elo 230 [place] [address] documented as of this encounter Visit Diagnoses Not on filedocumented in this encounter Care Teams Painter Maintenance Relationship Specialty Start Date End Date Bharati Soriano MD [address] [place] [address] PCP - General Family Medicine 06/14/18 Vasyl Boles MD [address] [place] [address] [address] [place] [address] Gastroenterology 06/20/24 Amador Green MD [address] [place] [address] Rheumatology 09/18/24 Babak Sparks MD [address] [place] [address] [address] [place] [address] Endocrinology 10/17/24 documented as of this encounter
--- OUTSIDE RECORDS SUMMARY | 2024-10-19 14:51 | XMS_ITS | Encounter Summary ---
Author Organization [employer] Address 75 [facility] 7t [place] [address] Care Team Providers Care Jig Grinder Set Up Operator Name Role Phone Bharati Soriano MD Primary Care Provider +[phone]- [phone] Vasyl Boles MD Unavailable [phone] Amador Green MD Unavailable Babak Sparks MD Unavailable [phone] Reason for Visit * Reason Comments Med Refill Encounter Details Date Type Department Care Team (Late st Contact Info) Description 07/30/2024 Refill [facility] MEDICINE 230 [place], [place] [phone] Bharati Soriano MD 230 [place], [place] [phone] Gastroesophageal reflux disease without esophagitis Social History [...] 12/19/2024 11:00 AM EDT Office Visit [facility] MEDICINE [address] [place] [address] 01/17/2025 3:15 PM EDT Office Visit [facility] MEDICINE [address] [place] [address] Bharati Soriano MD [address] [place] [address] 03/14/2025 1:00 PM EDT Office Visit [facility] ADULT DENTAL [address] [place] [address] Elo Mahoney [address] [place] [address] documented as of this encounter Visit Diagnoses Diagnosis Gastroesophageal reflux disease without esophagitis Esophageal reflux documented in this encounter Additional Health Concerns Assessment Noted Time PHQ-9 Depression Total Score: 1 01/14/20 24 10:00 AM EDT documented as of this encounter Care Teams Jig Grinder Set Up Operator Relationship Specialty Start Date End Date Bharati Soriano MD [address] [place] [address] PCP - General Family Medicine 06/14/18 Vasyl Boles MD [address] [place] [address] [address] [place] [phone] Gastroenterology 06/20/24 Amador Green MD [address]377 [place] [address] Rheumatology 09/18/24 Babak Sparks MD [address] [place] [address] Drive [address] [place] [address] Endocrinology 10/17/24 documented as of this encounter
--- OUTSIDE RECORDS SUMMARY | 2024-10-19 14:51 | XMS_ITS | Encounter Summary ---
Author Organization [employer] Address [address] [facility] [address] 7t [place] [address] Care Team Providers Care Keg Filler Name Role Phone Bharati Soriano MD Primary Care Provider [phone]- [phone] Vasyl Boles MD Unavailable Amador Green MD Unavailable Babak Sparks MD Unavailable [phone] Encounter Details Date Type Department Care Team (Late st Contact Info) Description 05/30/2024 Telephone [facility] MEDICINE 230 [place], [place] [phone] Bharati Soriano MD 230 [place], [place] [phone] Social History Tobacco Use Types Packs/Day Years [...] Visit [facility] MEDICINE [address] [place] [address] 01/17/2025 3:15 PM EDT Office Visit [facility] MEDICINE [address] [place] [address] Bharati Sorinao MD [address] [place] [address] 03/14/2025 1:00 PM EDT Office Visit [facility] ADULT DENTAL [address] [place] [address] Elo Mahoney 230 [place] [address] documented as of this encounter Visit Diagnoses Not on filedocumented in this encounter Additional Health Concerns Assessment Noted Time PHQ-9 Depression Total Score: 1 01/14/20 24 10:00 AM EDT documented as of this encounter Care Teams Keg Filler Relationship Specialty Start Date End Date Bharati Soriano MD [address] [place] [address]84 PCP - General Family Medicine 06/14/18 Vasyl Boles MD [address] [place] [address] [address] [place] [address] Gastroenterology 06/20/24 Amador Green MD [address] [place] [address] Rheumatology 09/18/24 Babak Sparks MD [address] [place] [address] Drive [address] [place] [address] Endocrinology 10/17/24 documented as of this encounter
--- OUTSIDE RECORDS SUMMARY | 2024-10-19 14:51 | XMS_ITS | Encounter Summary ---
Author Organization [employer] Address 75 [facility] 7t [place] [address] Care Team Providers Care Steam Presser Name Role Phone Bharati Soriano MD Primary Care Provider +[phone]- [phone] Vasyl Boles MD Unavailable [phone] Amador Green MD Unavailable Babak Sparks MD Unavailable [phone] Reason for Visit * Reason Onset Date Comments Med Refill 03/31/2024 Encounter Details Date Type Department Care Team (Late st Contact Info) Description 03/31/2024 Telephone [facility] MEDICINE 230 [place], [place] [phone] Bharati Soriano MD 230 [place], [place] [phone] Med Refill Social History Tobacco Use Types [...] 5-325 MG tablet To be sent to: [facility]/pharmacy #[id number] [place] [address] documented in this encounter Plan of Treatment Upcoming Encounters Date Type Department Care Team (Late st Contact Info) Description 12/19/2024 11:00 AM EDT Office Visit [facility] MEDICINE [address] [place] [address] 01/17/2025 3:15 PM EDT Office Visit [facility] MEDICINE [address] [place] [address] Bharati Soriano MD [address] [place] [address] 03/14/2025 1:00 PM EDT Office Visit [facility] ADULT DENTAL [address] [place] [address] Elo Mahoney 230 [place] [address] documented as of this encounter Visit Diagnoses Not on filedocumented in this encounter Additional Health Concerns Assessment Noted Time PHQ-9 Depression Total Score: 1 01/14/20 24 10:00 AM EDT documented as of this encounter Care Teams Steam Presser Relationship Specialty Start Date End Date Bharati Soriano MD 230 [place] [address] PCP - General Family Medicine 06/14/18 Vasyl Boles MD [address] [place] [address] [address] [place] [phone] Gastroenterology 06/20/24 Amador Green MD 3[address] [place] [address] Rheumatology 09/18/24 Babak Sparks MD [address] [place] [address] Drive [address] [place] [address] Endocrinology 10/17/24 documented as of this encounter
--- OUTSIDE RECORDS SUMMARY | 2024-10-19 14:51 | XMS_ITS | Encounter Summary ---
Author Organization [employer] Address [address] [place] [address] [address], [place] [address] Care Team Providers Care Simulation Tech Name Role Phone Bharati Soriano MD Primary Care Provider [phone]- [phone] Vasyl Boles MD Unavailable [phone] Amador Green MD Unavailable [phone] Babak Sparks MD Unavailable [phone] Reason for Referral * Consultation (Routine) - Closed Specialty Diagnoses / Procedures Referred By Contac t Referred To Contact Physical Therapy Diagnoses Chronic low back pain, unspecified back pain laterality, unspecified whether sciatica present Bharati Soriano MD 230 [place] [address] Phone: tel: fax: [facility] / , [address] Phone: tel: fax: Referral ID Status Reason Start Date Expiration Date V isits Requested Visits Authorized [id number] Closed Specialty Services Required 10/15/2023 10/14/2024 1 1 Encounter Details Date Type Department Care Team (Late st Contact Info) Description 10/15/2023 Orders Only [facility] MEDICINE 230 [place] [address] Bharati Soriano MD 230 [place], [place] [phone] Chronic low back pain, unspecified back pain [...] Description 12/19/2024 11:00 AM EDT Office Visit [facility] MEDICINE [address] [place] [address] 01/17/2025 3:15 PM EDT Office Visit [facility] MEDICINE [address] [place] [address] Bharati Soriano MD [address] [place] [address] 03/14/2025 1:00 PM EDT Office Visit [facility] ADULT DENTAL 230 [place] [address] Elo Mahoney 230 [place], [place] [phone] Scheduled Referrals Name Type Priority Associated Diagnoses [...] documented as of this encounter Care Teams Simulation Tech Relationship Specialty Start Date End Date Bharati Soriano MD 230 [place] [address] PCP - General Family Medicine 06/14/18 Vasyl Boles MD [address] [place] [address] DR [facility] [address] [place] [address] Gastroenterology 06/20/24 Amador Green MD [address] [place] [address] Rheumatology 09/18/24 Babak Sparks MD [address] [place] [address] Drive [address] [place] [address] Endocrinology 10/17/24 documented as of this encounter
--- OUTSIDE RECORDS SUMMARY | 2024-10-19 14:51 | XMS_ITS | Encounter Summary ---
Author Organization [employer] Address 75 [facility] 7t [place] [address] Care Team Providers Care Behavioral Health Director Name Role Phone Bharati Soriano MD Primary Care Provider [phone]- [phone] Vasyl Boles MD Unavailable Amador Green MD Unavailable [phone] Babak Sparks MD Unavailable [phone] Encounter Details Date Type Department Care Team (Late st Contact Info) Description 08/01/2024 Orders Only [facility] MEDICINE 230 [place], [place] [phone] Rosi Vergara MD 230 [place], [place] [phone] Primary hypertension; Chronic renal impairment, stage 2 [...] 11:00 AM EDT Office Visit [facility] MEDICINE [address] [place] [address] 01/17/2025 3:15 PM EDT Office Visit [facility] MEDICINE [address] [place] [address] Bharati Soriano MD [address] [place] [address] 613[address] 03/14/2025 1:00 PM EDT Office Visit [facility] ADULT DENTAL [address] [place] [address] Elo Mahoney [address] [place] [address] documented as of this encounter Visit Diagnoses Diagnosis Primary hypertension Unspecified essential hypertension Chronic renal impairment, stage 2 (mild) documented in this encounter Additional Health Concerns Assessment Noted Time PHQ-9 Depression Total Score: 1 01/14/20 24 10:00 AM EDT documented as of this encounter Care Teams Behavioral Health Director Relationship Specialty Start Date End Date Bharati Soriano MD [address] [place] [address] PCP - General Family Medicine 06/14/18 Vasyl Boles MD [address] [place] [address] [address] [place] [address] Gastroenterology 06/20/24 Amador Green MD [address] [place] [address] Rheumatology 09/18/24 Babak Sparks MD [address] [place] [address] Drive [address] [place] [address] Endocrinology 10/17/24 documented as of this encounter
--- OUTSIDE RECORDS SUMMARY | 2024-10-19 14:51 | XMS_ITS | Encounter Summary ---
Author Organization [employer] Address 75 [facility] 7t [place] [address] Care Team Providers Care Hims Clerk Name Role Phone Bharati Soriano MD Primary Care Provider + [phone] Vasyl Boles MD Unavailable [phone] Amador Green MD Unavailable [phone] Babak Sparks MD Unavailable [phone] Encounter Details Date Type Department Care Team (Latest Contact Info) Description 03/26/2021 Abstract [facility] CONVERSIONS Dental, Provider, DDS Social History [...] Description 12/19/2024 11:00 AM EDT Office Visit [facility] MEDICINE [address] [place] [address] 01/17/2025 3:15 PM EDT Office Visit [facility] MEDICINE [address] [place] [address] 278[address] Bharati Soriano MD [address] [place] [address] 03/14/2025 1:00 PM EDT Office Visit [facility] ADULT DENTAL 230 [place] [address] Elo Mahoney 230 [place] [address] documented as of this encounter Visit Diagnoses Not on filedocumented in this encounter Care Teams Hims Clerk Relationship Specialty Start Date End Date Bharati Soriano MD 230 [place] [address] PCP - General Family Medicine 06/14/18 Vasyl Boles MD [address] [place] [address] DR [facility] 102 [place] [phone] Gastroenterology 06/20/24 Amador Green MD [address] [place] [address] Rheumatology 09/18/24 Babak Sparks MD [address] [place] [address] Drive [address] [place] [address] Endocrinology 10/17/24 documented as of this encounter
--- OUTSIDE RECORDS SUMMARY | 2024-10-19 14:51 | XMS_ITS | Encounter Summary ---
Author Organization [employer] Address [address] [facility] [address] 7t [place] [address] Care Team Providers Care Sales Analytics Manager Name Role Phone Bharati Soriano MD Primary Care Provider [phone] Vasyl Boles MD Unavailable [phone] Amador Green MD Unavailable [phone] Babak Sparks MD Unavailable [phone] Encounter Details Date Type Department Care Team (Late st Contact Info) Description 01/04/2024 Orders Only [facility] MEDICINE 230 [place], [place] [phone] Hortencia Beard, JÚNIOR 230 [place] [address] Pain Social History Tobacco Use Types Packs/Day [...] AM EDT Office Visit [facility] MEDICINE [address] [place] [address] 01/17/2025 3:15 PM EDT Office Visit [facility] MEDICINE [address] [place] [address] Bharati Soriano MD 230 [place] [address] 03/14/2025 1:00 PM EDT Office Visit [facility] ADULT DENTAL [address] [place] [address] Al Mahoneyaris 230 [place] [address] Scheduled Orders Name Type Priority Associated Diagnoses [...] 11:23 AM EDT) Nordiazepam, GCMS Urine NEGATIVE [facility] Oxazepam, GCMS Urine NEGATIVE [facility] Lorazepam GCMS Urine NEGATIVE [facility] Alprazolam, GCMS Urine NEGATIVE [facility] Alphahydroxytriazolam, GCMS Ur NEGATIVE [facility] Temazepam, GCMS Urine NEGATIVE [facility] Alphahydroxymidazolam,GC MS Ur NEGATIVE [facility] Aminoclonazepam, GCMS Urine NEGATIVE [facility] Flurazepam Metabolite,GCMS Ur NEGATIVE [facility] Benzodiazepines Comments SEE NOTE [facility] Comment:This drug testing is for medical treatment only.Analysis was performed as non-forensic testing andthese results should be used only by healthcareproviders to render diagnosis or treatment, or tomonitor progress of medical conditions.LDT Notes:Confirmation tests were developed and their analyticalperformance characteristics have been determined by[employer]. It has not been cleared or approvedby the FDA. This assay has been validated pursuant tothe CLIA regulations and is used for clinical purposes.Healthcare Providers needing Interpretation assistance,please contact us at [phone] ( )M-F, 8am to 10pm ESTTHIS TEST PERFORMED AT:[facility] [place] [phone] DIRECTOR: VAUGHN BAUTISTA MD 01/04/2024 11:2 3 AM EDT 01/04/2024 1:53 PM EDT us Mily Alfredo [employer]TI[employer] FURNITURE REPAIRER LAB URINE ORDERABLES Final Res ult [facility] [address] [place] [address] [phone] documented in this encounter Visit Diagnoses Diagnosis Pain Generalized pain documented in this encounter Additional Health Concerns Assessment Noted Time PHQ-9 Depression Total Score: 2 12/22/19 24 2:00 PM EDT documented as of this encounter Care Teams Sales Analytics Manager Relationship Specialty Start Date End Date Bharati Soriano MD 230 [place] [address] PCP - General Family Medicine 06/14/18 Vasyl Boles MD [address] [place] [address] [address] [place] [address] Gastroenterology 06/20/24 [place] [address] [place] [address] Rheumatology 09/18/24 Babak Sparks MD [address] [place] [address] Drive [address] [place] [address] Endocrinology 10/17/24 documented as of this encounter
--- OUTSIDE RECORDS SUMMARY | 2024-10-19 14:51 | XMS_ITS | Encounter Summary ---
Author Organization [employer] Address 75 [facility] 7t [place] [address] Care Team Providers Care Lead Qa Analyst Name Role Phone Bharati Soriano MD Primary Care Provider [phone] Vasyl Boles MD Unavailable Amador Green MD Unavailable Babak Sparks MD Unavailable [phone] Reason for Visit * Reason Comments Med Change Request Encounter Details Date Type Department Care Team (Late st Contact Info) Description 09/08/2022 Refill [facility] MEDICINE 230 [place], [place] [phone] Bharati Soriano MD 230 [place], [place] [phone] Social History Tobacco Use Types Packs/Day Years [...] EDT Office Visit [facility] MEDICINE [address] [place] [address] 01/17/2025 3:15 PM EDT Office Visit [facility] MEDICINE [address] [place] [address] Bharati Soriano MD 230 [place] [address] 03/14/2025 1:00 PM EDT Office Visit [facility] ADULT DENTAL 230 [place] [address] Denzel, Elo 230 [place] [address] documented as of this encounter Visit Diagnoses Not on filedocumented in this encounter Care Teams Lead Qa Analyst Relationship Specialty Start Date End Date Bharati Soriano MD [address] [place] [address] PCP - General Family Medicine 06/14/18 Vasyl Boles MD [address] [place] [address] DR [facility] 102 [place] [address] Gastroenterology 06/20/24 Amador Green MD [address] [place] [address] Rheumatology 09/18/24 Babak Sparks MD [address] [place] [address] Drive [address] [place] [address] Endocrinology 10/17/24 documented as of this encounter
--- OUTSIDE RECORDS SUMMARY | 2024-10-19 14:51 | XMS_ITS | Encounter Summary ---
Author Organization [employer] Address 75 [facility] 7t [place] [address] Care Team Providers Care Integrated Campaign Manager Name Role Phone Bharati Soriano MD Primary Care Provider [phone] Vasyl Boles MD Unavailable Amador Green MD Unavailable Babak Sparks MD Unavailable [phone] Reason for Visit * Reason Comments Med Refill Encounter Details Date Type Department Care Team (Late Contact Info) Description 10/05/2022 Refill [facility] MEDICINE 230 [place], [place] [phone] Bharati Soriano MD 230 [place], [place] [phone] Wheeze Social History Tobacco Use Types Packs/Day [...] Description 12/19/2024 11:00 AM EDT Office Visit [facility] MEDICINE 230 [place] [address] 01/17/2025 3:15 PM EDT Office Visit [facility] MEDICINE 230 [place] [address] Bharati Soriano MD 230 [place] [address] 03/14/2025 1:00 PM EDT Office Visit [facility] ADULT DENTAL 230 [place] [address] Denzel, Elo [address] [place] [address] documented as of this encounter Visit Diagnoses Diagnosis Wheeze Wheezing documented in this encounter Care Teams Integrated Campaign Manager Relationship Specialty Start Date End Date Bharati Soriano MD [address] [place] [address] [phone] PCP - General Family Medicine 06/14/18 Vasyl Boles MD [address] [place] [address] DR [facility] [place] [address] [place] [address] Gastroenterology 06/20/24 Amador Green MD [address] [place] [address] Rheumatology 09/18/24 Babak Sparks MD [address] [place] [address] Drive [address] [place] [address] Endocrinology 10/17/24 documented as of this encounter
--- OUTSIDE RECORDS SUMMARY | 2024-10-19 14:51 | XMS_ITS | Encounter Summary ---
Author Organization [employer] Address 75 [facility] 7t [place] [address] Care Team Providers Care Ecology Professor Name Role Phone Bharati Soriano MD Primary Care Provider [phone]- [phone] Vasyl Boles MD Unavailable Amador Green MD Unavailable Babak Sparks MD Unavailable [phone] Encounter Details Date Type Department Care Team (Late st Contact Info) Description 10/12/2022 Abstract [facility] MEDICINE 230 [place], [place] [phone] Bharati Soriano MD 230 [place], [place] [phone] Social History Tobacco Use Types Packs/Day Years [...] 11:00 AM EDT Office Visit [facility] MEDICINE [address] [place] [address] 01/17/2025 3:15 PM EDT Office Visit [facility] MEDICINE [address] [place] [address] Bharati Soriano MD 230 [place] [address] 03/14/2025 1:00 PM EDT Office Visit [facility] ADULT DENTAL [address] [place] [address] Al Mahoneyaris 230 [place] [address] documented as of this encounter Visit Diagnoses Not on filedocumented in this encounter Care Teams Ecology Professor Relationship Specialty Start Date End Date Bharati Soriano MD [address] [place] [address] PCP - General Family Medicine 06/14/18 Vasyl Boles MD [address] [place] [address] DR [facility] 102 [place] [address] Gastroenterology 06/20/24 Amador Green MD [address] [place] [address] Rheumatology 09/18/24 Babak Sparks MD [address] [place] [address] Drive [address] [place] [address] Endocrinology 10/17/24 documented as of this encounter
--- OUTSIDE RECORDS SUMMARY | 2024-10-19 14:51 | XMS_ITS | Encounter Summary ---
Author Organization [employer] Address 75 [facility] 7t [place] [address] Care Team Providers Care International Recruiter Name Role Phone Bharati Soriano MD Primary Care Provider [phone]- [phone] Vasyl Boles MD Unavailable Amador Green MD Unavailable Babak Sparks MD Unavailable Reason for Visit * Reason Onset Date Comments Med Refill 09/29/2024 Encounter Details Date Type Department Care Team (Late st Contact Info) Description 09/29/2024 Telephone [facility] MEDICINE 230 [place], [place] [phone] Bharati Soriano MD 230 [place], [place] [phone] Med Refill Social History Tobacco Use Types [...] be sent to: [facility]/pharmacy #[id number] [place] [address] - [address] [place] [address] documented in this encounter Plan of Treatment Upcoming Encounters Date Type Department Care Team ([facility] st Contact Info) Description 12/19/2024 11:00 AM EDT Office Visit [facility] MEDICINE [address] [place] [address] 01/17/2025 3:15 PM EDT Office Visit [facility] MEDICINE [address] [place] [address] Bharati oSriano MD 230 [place] [address] 03/14/2025 1:00 PM EDT Office Visit [facility] ADULT DENTAL 230 [place] [address] Elo Mahoney 230 [place] [address] documented as of this encounter Visit Diagnoses Not on filedocumented in this encounter Additional Health Concerns Assessment Noted Time PHQ-9 Depression Total Score: 1 01/14/20 24 10:00 AM EDT documented as of this encounter Care Teams International Recruiter Relationship Specialty Start Date End Date Bharati Soriano MD 230 [place] [address] PCP - General Family Medicine 06/14/18 Vasyl Boles MD [address] [place] [address] [address] [place] [address] Gastroenterology 06/20/24 Amador Green MD [address] [place] [address] Rheumatology 09/18/24 Babak Sparks MD [address] [place] [address] Drive [address] [place] [address] Endocrinology 10/17/24 documented as of this encounter
--- OUTSIDE RECORDS SUMMARY | 2024-10-19 14:51 | XMS_ITS | Encounter Summary ---
Author Organization [employer] Address 75 [facility] 7t [place] [address] Care Team Providers Care Formal Wear Rental Clerk Name Role Phone Bharati Soriano MD Primary Care Provider +1- [phone] Vasyl Boles MD Unavailable Amador Green MD Unavailable Babak Sparks MD Unavailable [phone] Reason for Visit * Reason Onset Date Comments Med Refill 06/01/2023 Encounter Details Date Type Department Care Team (Late st Contact Info) Description 06/01/2023 Telephone [facility] MEDICINE [address] [place], [place] [phone] Bharati Soriano MD 230 [place], [place] [phone] Med Refill Social History Tobacco Use Types Packs/Day Years Used Date Smoking Tobacco: Never Passive Smoke Exposure: Never Smokeless Tobacco: Never Depression Answer Date Recorded Patient Health Questionnaire-9 Score 0 10/15/2022 Housing Stability Answer Date Recorded What is your housing situation today? I have anitacoung anaya 03/29/[address] you [...] Description 12/19/2024 11:00 AM EDT Office Visit [facility] MEDICINE [address] [place] [address] 01/17/2025 3:15 PM EDT Office Visit [facility] MEDICINE [address] [place] [address] Bharati Soriano MD 230 [place] [address] 03/14/2025 1:00 PM EDT Office Visit [facility] ADULT DENTAL 230 [place] [address] Elo Mahoney 230 [place] [address] documented as of this encounter Visit Diagnoses Not on filedocumented in this encounter Additional Health Concerns Assessment Noted Time PHQ-9 Depression Total Score: 0 10/16/19 2:27 PM EDT documented as of this encounter Care Teams Formal Wear Rental Clerk Relationship Specialty Start Date End Date Bharati Soriano MD 230 [place] [address] PCP - General Family Medicine 06/14/18 Vasyl Boles MD [address] [place] [address] [address] [place] [address] Gastroenterology 06/20/24 [place] [address] [place] [address] Rheumatology 09/18/24 Babak Sparks MD [address] [place] [address] Drive [address] [place] [address] Endocrinology 10/17/24 documented as of this encounter
--- OUTSIDE RECORDS SUMMARY | 2024-10-19 14:51 | XMS_ITS | Encounter Summary ---
Author Organization [employer] Address [address] [place] [address] 7t [place] [address] Care Team Providers Care Trucksmith Name Role Phone Bharati Soriano MD Primary Care Provider +1- [phone] Vasyl Boles MD Unavailable [phone] Amador Green MD Unavailable Babak Sparks MD Unavailable Reason for Visit * Reason Onset Date Comments Medication Question 06/12/2022 Encounter Details Date Type Department Care Team ([facility] st Contact Info) Description 06/12/2022 Telephone [facility] MEDICINE [address], [place] [phone] Bharati Soriano MD 230 [place], [place] [phone] Medication Question Social History Tobacco Use Types [...] sent on the to [place] place [place] . Ptstates [facility] years [facility] [address] . Pt would like to know if she will be able to get meds before the long weekend ? documented in this encounter Plan of Treatment Upcoming Encounters Date Type Department Care Team (Late st Contact Info) Description 12/19/2024 11:00 AM EDT Office Visit [facility] MEDICINE [address] [place] [address] 01/17/2025 3:15 PM EDT Office Visit [facility] MEDICINE [address] [place] [address] Bharati Soriano MD [address] [place] [address] 03/14/2025 1:00 PM EDT Office Visit [facility] ADULT DENTAL [address] [place] [address] Denzel Elo [address] [place] [address] documented as of this encounter Visit Diagnoses Diagnosis Pain Generalized pain documented in this encounter Care Teams Trucksmith Relationship Specialty Start Date End Date Bharati Soriano MD [address] [place] [address] PCP - General Family Medicine 06/14/18 Vasyl Boles MD [address] [place] [address] [address] [place] [address] Gastroenterology 06/20/24 Amador Green MD [address] [place] [address] Rheumatology 09/18/24 Babak Sparks MD [address] [place] [address] Drive [address] [place] [address] Endocrinology 10/17/24 documented as of this encounter
--- OUTSIDE RECORDS SUMMARY | 2024-10-19 14:51 | XMS_ITS | Encounter Summary ---
Author Organization [employer] Address 75 [facility] 7t [place] [address] Care Team Providers Care Cargoman Name Role Phone Bharati Soriano MD Primary Care Provider + [phone] Vasyl Boles MD Unavailable Amador Green MD Unavailable Babak Sparks MD Unavailable [phone] Encounter Details Date Type Department Care Team (Latest Contact Info) Description 08/23/2019 Abstract [facility] CONVERSIONS Dental, Provider, DDS Social History Tobacco [...] 11:00 AM EDT Office Visit [facility] MEDICINE [address] [place] [address] 01/17/2025 3:15 PM EDT Office Visit [facility] MEDICINE [address] [place] [address] Bharati Soriano MD [address] [place] [address] 03/14/2025 1:00 PM EDT Office Visit [facility] 230 [place] [address] Elo Mahoney 230 [place] [address] documented as of this encounter Visit Diagnoses Not on filedocumented in this encounter Care Teams Cargoman Relationship Specialty Start Date End Date Bharati Soriano MD 230 [place] [address] PCP - General Family Medicine 06/14/18 Vasyl Boles MD [address] [place] [address] DR [facility] [address] [place] [phone] Gastroenterology 06/20/24 Amador Green MD [address] [place] [address] Rheumatology 09/18/24 Babak Sparks MD [address] [place] [address] Drive [address] [place] [address] Endocrinology 10/17/24 documented as of this encounter
--- OUTSIDE RECORDS SUMMARY | 2024-10-19 14:51 | XMS_ITS | Encounter Summary ---
Author Organization [employer] Address 75 [facility] 7t [place] [address] Care Team Providers Care Delivery Merchandiser Name Role Phone Bharati Soriano MD Primary Care Provider +1- [phone] Vasyl Boles MD Unavailable Amador Green MD Unavailable Babak Sparks MD Unavailable [phone] Reason for Visit * Reason Comments Med Refill Encounter Details Date Type Department Care Team (Late st Contact Info) Description 05/10/2024 Refill [facility] MEDICINE [address] [place], [place] [phone] Bharati Soriano MD [address] [place], [place] [phone] Dyslipidemia; Other osteoporosis without current pathological fracture; [...] Visit [facility] MEDICINE [address] [place] [address] 01/17/2025 3:15 PM EDT Office Visit [facility] MEDICINE [address] [place] [address] Bharati Soriano MD [address] [place] [address] 03/14/2025 1:00 PM EDT Office Visit [facility] ADULT DENTAL [address] [place] [address] Elo Mahoney 230 [place] [address] documented as of this encounter Visit Diagnoses Diagnosis Dyslipidemia Other and unspecified hyperlipidemia Other osteoporosis without current pathological fracture Mild intermittent asthma, unspecified whether complicated documented in this encounter Additional Health Concerns Assessment Noted Time PHQ-9 Depression Total Score: 1 01/14/20 24 10:00 AM EDT documented as of this encounter Care Teams Delivery Merchandiser Relationship Specialty Start Date End Date Bharati Soriano MD [address] [place] [address] PCP - General Family Medicine 06/14/18 Vasyl Boles MD [address] [place] [address] [address] [place] [address] Gastroenterology 06/20/24 [place] [address] [place] [address] Rheumatology 09/18/24 Babak Sparks MD [address] [place] [address] Drive [address] [place] [address] Endocrinology 10/17/24 documented as of this encounter
--- OUTSIDE RECORDS SUMMARY | 2024-10-19 14:51 | XMS_ITS | Encounter Summary ---
Author Organization [employer] Address [address] [facility] [address] 7t [place] [address] Care Team Providers Care Public Health Officer Name Role Phone Bharati Soriano MD Primary Care Provider +1- [phone] Vasyl Boles MD Unavailable [phone] Amador Green MD Unavailable [phone] Babak Sparks MD Unavailable [phone] Encounter Details Date Type Department Care Team (Late st Contact Info) Description 09/29/2023 Orders Only [facility] 230 [place], [place] [phone] Bryon Fuller MD 230 [place], [place] [phone] Social History Tobacco Use Types Packs/Day Years [...] Description 12/19/2024 11:00 AM EDT Office Visit [facility] MEDICINE [address] [place] [address] 01/17/2025 3:15 PM EDT Office Visit [facility] MEDICINE [address] [place] [address] Bharati Soriano MD [address] [place] [address] 03/14/2025 1:00 PM EDT Office Visit [facility] ADULT DENTAL [address] [place] [address] Denzel, Elo [address] [place] [address] documented as of this encounter Visit Diagnoses Not on filedocumented in this encounter Additional Health Concerns Assessment Noted Time PHQ-9 Depression Total Score: 0 10/16/19 23 2:27 PM EDT documented as of this encounter Care Teams Public Health Officer Relationship Specialty Start Date End Date Bharati Soriano MD [address] [place] [address] PCP - General Family Medicine 06/14/18 Vasyl Boles MD [address] [place] [address] [place] [phone] Gastroenterology 06/20/24 Amador Green MD [address] [place] [address] Rheumatology 09/18/24 Babak Sparks MD [address] [place] [address] [place] [address] Endocrinology 10/17/24 documented as of this encounter
--- OUTSIDE RECORDS SUMMARY | 2024-10-19 14:51 | XMS_ITS | Encounter Summary ---
Author Organization [employer] Address 75 [facility] 7t [place] [address] Care Team Providers Care Chief Lending Officer Name Role Phone Bharati Soriano MD Primary Care Provider + [phone] Vasyl Boles MD Unavailable [phone] Amador Green MD Unavailable [phone] Babak Sparks MD Unavailable [phone] Encounter Details Date Type Department Care Team (Latest Contact Info) Description 06/29/2018 Abstract [facility] CONVERSIONS Dental, Provider, DDS Social History Tobacco [...] 11:00 AM EDT Office Visit [facility] MEDICINE [address] [place] [address] 01/17/2025 3:15 PM EDT Office Visit [facility] MEDICINE [address] [place] [address] Bharati Soriano MD [address] [place] [address] 03/14/2025 1:00 PM EDT Office Visit [facility] 230 [place] [address] Elo Mahoney 230 [place] [address] documented as of this encounter Visit Diagnoses Not on filedocumented in this encounter Care Teams Chief Lending Officer Relationship Specialty Start Date End Date Bharati Soriano MD 230 [place] [address] PCP - General Family Medicine 06/14/18 Vasyl Boles MD [address] [place] [address] DR [facility] [address] [place] [address] Gastroenterology 06/20/24 Amador Green MD [address] [place] [address] Rheumatology 09/18/24 Babak Sparks MD [address] [place] [address] Drive [address] [place] [address] Endocrinology 10/17/24 documented as of this encounter
--- OUTSIDE RECORDS SUMMARY | 2024-10-19 14:51 | XMS_ITS | Encounter Summary ---
Author Organization [employer] Address 75 [facility] 7t [place] [address] Care Team Providers Care Category Development Analyst Name Role Phone Bharati Soriano MD Primary Care Provider [phone]- [phone] Vasyl Boles MD Unavailable Amador Green MD Unavailable [phone] Babak Sparks MD Unavailable [phone] Reason for Visit * Reason Onset Date Comments Call Back Request 10/25/2023 Encounter Details Date Type Department Care Team (Late st Contact Info) Description 10/25/[address] [facility] MEDICINE [address] [place], [place] [phone] Bharati Soriano MD 230 [place], [place] [phone] Call Back Request Social History Tobacco Use [...] of every month. Please contact pt at [phone] documented in this encounter Plan of Treatment Upcoming Encounters Date Type Department Care Team (Late st Contact Info) Description 12/19/2024 11:00 AM EDT Office Visit [facility] MEDICINE [address] [place] [address] 01/17/2025 3:15 PM EDT Office Visit [facility] MEDICINE [address] [place] [address] Bharati Soriano MD 230 [place] [address] 03/14/2025 1:00 PM EDT Office Visit [facility] ADULT DENTAL 230 [place] [address] Elo Mahoney 230 [place] [address] documented as of this encounter Visit Diagnoses Not on filedocumented in this encounter Additional Health Concerns Assessment Noted Time PHQ-9 Depression Total Score: 0 10/16/19 23 2:27 PM EDT documented as of this encounter Care Teams Category Development Analyst Relationship Specialty Start Date End Date Bharati Soriano MD 230 [place] [address] PCP - General Family Medicine 06/14/18 Vasyl Boles MD [address] [place] [address] [address] [place] [address] Gastroenterology 06/20/24 Amador Green MD [address] [place] [address] Rheumatology 09/18/24 Babak Sparks MD [address] [place] [address] Drive [address] [place] [address] Endocrinology 10/17/24 documented as of this encounter
[2024-11-04 12:24] LABS: N-Telopeptide 57 (see note); NTXCreaRU 448 mg/dL (20-275)
== END 2024-10-19 13:56 | disposition home or self-care (01) ==
LOC: HO.LAB 13:55
PROVIDERS: Visit Provider Internal Medicine Endocrinology, Diabetes & Metabolism
DX: M81.0 Age-related osteoporosis without current pathological fracture (principal)
CPT/HCPCS: 82523; 84100; 86335

== ENCOUNTER → 2024-11-14 13:00 | Outpatient (BNV) | payer MEDICARE, MEDICAID, SELFPAY | PROVIDERS: PCP Family Medicine; Visit Provider Internal Medicine | DX: Z12.31 Encounter for screening mammogram for malignant neoplasm of breast (principal) | CPT/HCPCS: 77063; 77067 ==

== ENCOUNTER 2024-11-14 13:03 | Outpatient (REF) | payer MEDICARE, MEDICAID, SELFPAY ==
--- OUTSIDE RECORDS SUMMARY | 2024-11-14 14:32 | XMS_ITS | Encounter Summary ---
Author Organization [employer] Address 75 [facility] 7t [place] [address] Care Team Providers Care Tool Rental Technician Name Role Phone Bharati Soriano MD Primary Care Provider [phone]- [phone] Vasyl Boles MD Unavailable Amador Green MD Unavailable [phone] Babak Sparks MD Unavailable Encounter Details Date Type Department Care Team (Late st Contact Info) Description 06/12/2022 Orders Only [facility] CHC MED & PEDS [address] [place] [address] Leena Verdin ANP 230 [place], [place] [phone] Social History Tobacco Use Types Packs/Day Years [...] [facility] MEDICINE [address] [place] [address] [phone] 01/17/2025 3:15 PM EDT Office Visit [facility] MEDICINE [address] [place] [address] [phone] Bharati Soriano MD 230 [place] [address] 03/14/2025 1:00 PM EDT Office Visit [facility] ADULT DENTAL 230 [place], [place] [phone] Elo Mahoney 230 [place], [place] [phone] documented as of this encounter Visit Diagnoses Not on filedocumented in this encounter Care Teams Tool Rental Technician Relationship Specialty Start Date End Date Bharati Soriano MD 230 [place], [place] [phone] PCP - General Family Medicine 06/14/18 Vasyl Boles MD [address] [place] [address] [address] [place] [address] Gastroenterology 06/20/24 Amador Green MD [address] [place] [address] Rheumatology 09/18/24 Babak Sparks MD [address] [place] [address] Drive [address] [place] [address] Endocrinology 10/17/24 documented as of this encounter
== END 2024-11-14 13:04 | disposition home or self-care (01) ==
LOC: HO.MAMMO 13:03
PROVIDERS: PCP Family Medicine; Visit Provider Family Medicine
DX: Z12.31 Encounter for screening mammogram for malignant neoplasm of breast (principal)
CPT/HCPCS: 77063; 77067

== ENCOUNTER 2024-12-06 11:59 | Outpatient (REF) | payer MEDICARE, MEDICAID, SELFPAY ==
[2024-12-06 14:18] LABS: TSH reflex Free T4 3.46 uIU/mL (0.32-4.0)
[2024-12-06 14:31] LABS: Folate 7.8 ng/mL (> or = 4.0); Vitamin B12 245 pg/mL (200-900)
[2024-12-07 09:28] LABS: Syphilis Screen Nonreactive (Nonreactive)
== END 2024-12-06 12:00 | disposition home or self-care (01) ==
LOC: HO.HHCL 11:59
PROVIDERS: PCP Family Medicine; Visit Provider Family Medicine
DX: R20.0 Anesthesia of skin (principal); R20.2 Paresthesia of skin
CPT/HCPCS: 36415; 82607; 82746; 84443; 86780

== ENCOUNTER 2024-12-19 12:32 | Outpatient (REF) | payer MEDICARE, MEDICAID, SELFPAY ==
--- OUTSIDE RECORDS SUMMARY | 2024-12-19 13:17 | XMS_ITS | Encounter Summary ---
Author Organization [employer] Address 75 [facility] 7t [place] [address] Care Team Providers Care Telephone Lineworker Name Role Phone Bharati Soriano MD Primary Care Provider [phone]- [phone] Vasyl Boles MD Unavailable Amador Green MD Unavailable [phone] Babak Sparks MD Unavailable Encounter Details Date Type Department Care Team (Late st Contact Info) Description 06/12/2022 Orders Only [facility] CHC MED & PEDS [address] [place], [place] [phone] Leena Verdin ANP 230 [place], [place] [phone] Social History Tobacco Use Types Packs/Day Years [...] Care Team (Late st Contact Info) Description 01/17/2025 3:15 PM EDT Office Visit [facility] MEDICINE 230 [place], [place] [phone] Bharati Soriano MD [address] [place], [place] [phone] 02/20/2025 11:00 AM EDT Office Visit [facility] MEDICINE [address] [place] [address] 03/14/2025 1:00 PM EDT Office Visit [facility] ADULT DENTAL [address] [place] [address] Elo Mahoney [address] [place] [address] documented as of this encounter Visit Diagnoses Not on filedocumented in this encounter Care Teams Telephone Lineworker Relationship Specialty Start Date End Date Bharati Soriano MD [address] [place] [address] PCP - General Family Medicine 06/14/18 Vasyl Boles MD [address] [place] [address] [address] [place] [address] Gastroenterology 06/20/24 Amador Green MD [address] [place] [address] Rheumatology 09/18/24 Babak Sparks MD [address] [place] [address] Drive [address] [place] [address] Endocrinology 10/17/24 documented as of this encounter
--- OUTSIDE RECORDS SUMMARY | 2024-12-19 13:18 | XMS_ITS | Patient Health Record ---
Author Organization [facility] Address [address] [place] [address] Care Team Providers Care Heat Treating Bluer Name Role Phone Bharati Soriano MD Primary Care Provider Becca Vasyl Vieira Jr Unavailable Allergies Allergen (clinical drug ingredient) Drug/Non Drug Allergy documented on EMR Reaction Allergy Type Onset Date Status simvastatin Simvastatin Unknown Drug Allergy Act kellie Metoprolol Succinate Unknown Drug Allergy Active Lisinopril [...] 100 MG TAKE 1 TABLET BY [facility] EVERY DAY AT BEDTIME Oral for 90 [...] Problem Status W/U Status Risk Notes Problem 772533143 Colon cancer screening (Z12.11) Active confirmed Problem 361391967 Radiation procti tis (K62.7) Active confirmed Problem 668873720 Gastroesophageal reflux disease without esophagitis (K21.9) Active confirmed Problem 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 Problem 30691306 Incontinence of feces, unspecified fecal incontinence type (R15.9) Active confirmed Plan Of Treatment Future Test Test Name Order Date COLONOSCOPY 07/14/2018 COLONOSCOPY 12/25/2021 Insurance Providers Payer Name Payer Address Payer Phone Subscriber Number Group Number Insured Name Patient Relationship to Insured Coverage Start Date Coverage End Date MEDICARE OF [place] [address] [place] [address] [phone] [id number] PATT RENDON Self - patient is the insured MEDICAID OF [facility] [address] [place] [address] [id number] PATT RENDON Self - patient is the insured Medical (General) History Medical History History ICD Code hypertension 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
--- OUTSIDE RECORDS SUMMARY | 2024-12-19 13:18 | XMS_ITS | Clinical Summary ---
Author Organization [facility] Address [address] [place] [address] Care Team Providers Care Radio Communication Coordinator Name Role Phone Bharati Soriano MD [...] Hemoglobin A1C 08/01/2020 05/01/2020 Influenza Vaccine (#1) 2025 5, 03/04/2022, 03/13/2020, Additional history exists Pneumococcal Vaccine: 50+ Years Completed 05/01/2020, 05/01/2020, 07/28/2018 Pneumococcal Vaccine: Peds ( 0 to 5 Years) and At-Risk Patients (6 to 49 Years) Discontinued 05/01/2020, 05/01/2020, 07/28/2018 Procedures Procedure Name Priority Date/Time Associated Diagnosis [...] Recently Relevant to Health Maintenance Care Teams Radio Communication Coordinator Relationship Specialty Start Date End Date Christie, Bharati Knight MD PCP - General 06/24/20
== END 2024-12-19 12:33 | disposition home or self-care (01) ==
LOC: HO.HHCLNP 12:32
PROVIDERS: Visit Provider Registered Nurse
DX: M54.50 Low back pain, unspecified (principal); G89.29 Other chronic pain
CPT/HCPCS: 80307

== ENCOUNTER 2025-01-19 14:06 | Outpatient (REF) | payer MEDICARE, MEDICAID, SELFPAY ==
--- OUTSIDE RECORDS SUMMARY | 2025-01-19 14:09 | XMS_ITS | Clinical Summary ---
Author Organization [facility] Address [address] [place] [address] Care Team Providers Care Marketing Area Manager Name Role Phone Bharati Soriano MD [...] Recently Relevant to Health Maintenance Care Teams Marketing Area Manager Relationship Specialty Start Date End Date Harris, Bharati Knight MD PCP - General 06/24/20
--- OUTSIDE RECORDS SUMMARY | 2025-01-19 14:09 | XMS_ITS | Encounter Summary ---
Author Organization [employer] Address [address] [place] [address] 7t [place] [address] Care Team Providers Care Sales Representative Education Courses Name Role Phone Bharati Soriano MD Primary Care Provider +1- [phone] Vasyl Boles MD Unavailable Amador Green MD Unavailable Babak Sparks MD Unavailable Encounter Details Date Type Department Care Team (Late st Contact Info) Description 06/12/2022 Orders Only [facility] CHC MED & PEDS [address] [place] [address] Leena Verdin ANP [address] [place], [place] [phone] Social History Tobacco Use Types Packs/Day Years [...] Care Team (Late st Contact Info) Description 02/20/2025 11:00 AM EDT Office Visit [facility] MEDICINE [address] [place], [place] [phone] 03/14/2025 1:00 PM EDT Office Visit [facility] ADULT DENTAL [address] [place], [place] [phone] Elo Mahoney 230 [place] [address] documented as of this encounter Visit Diagnoses Not on filedocumented in this encounter Care Teams Sales Representative Education Courses Relationship Specialty Start Date End Date Bharati Soriano MD [address] [place] [address] PCP - General Family Medicine 06/14/18 Vasyl Boles MD [address] [place] [address] [address] [facility] [address] [place] [address] Gastroenterology 06/20/24 [place] [address] [place] [address] Rheumatology 09/18/24 Babak Sparks MD [address] [place] [address] Drive [address] [place] [address] Endocrinology 10/17/24 documented as of this encounter
--- OUTSIDE RECORDS SUMMARY | 2025-01-19 14:09 | XMS_ITS | Patient Health Record ---
Author Organization [facility] Address [address] [place] [address] Care Team Providers Care Director New Product Name Role Phone Bharati Soriano MD Primary [...] Problem Status W/U Status Risk Notes Problem [id number] Colon cancer screening (Z12.11) Active confirmed Problem 594731544 Radiation procti tis (K62.7) Active confirmed Problem 952051931 Gastroesophageal reflux disease without esophagitis (K21.9) Active confirmed Problem 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 Problem 83116640 Incontinence of feces, unspecified fecal incontinence type (R15.9) Active confirmed Plan Of Treatment Future Test Test Name Order Date COLONOSCOPY 07/14/2018 COLONOSCOPY 12/25/2021 Insurance Providers Payer Name Payer Address Payer Phone Subscriber Number Group Number Insured Name Patient Relationship to Insured Coverage Start Date Coverage End Date MEDICARE OF [place] [address] [place] [address] [id number] PATT RENDON Self - patient is the insured MEDICAID OF [facility] [address] [place] [phone] [id number] PATT RENDON Self - patient is the insured Medical (General) History Medical History History ICD Code hypertension 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
--- NOTE | 2025-01-19 14:13 | EMG_ITS ---
Chief complaint: Leg/feet numbness. History of anal cancer s/p radiation and chemotherapy. History of thyroid disorder and back pain. Reason for referral: Evaluate for neuropathy Referred by: Dr. Soriano Procedure done: Bilateral lower extremity NCS/EMG Precautions and/or limitations: None The limb temperature was monitored continuously and remained between 32-36 degrees C during the performance of the NCS. Nerve Conduction Studies Anti Sensory Summary Table ?Stim Site NR Onset (ms) Norm Onset (ms) Peak (ms) Norm Peak (ms) O-P Amp (?V) Norm O-P Amp Site1 Site2 Delta-0 (ms) Dist (cm) Miguel Angel (m/s) Norm Miguel Angel (m/s) Left Sural Anti Sensory (Lat Mall) Calf ? 2.8 3.8 <4.0 9.1 >5.0 Calf Lat Mall 2.8 14.0 50 Right Sural Anti Sensory (Lat Mall) Calf ? 2.8 3.5 <4.0 7.9 >5.0 Calf Lat Mall 2.8 14.0 50 Motor Summary Table ?Stim Site NR Onset (ms) Norm Onset (ms) O-P Amp (mV) Norm O-P Amp iAmp (mV) Amp (1st) (%) Site1 Site2 Delta-0 (ms) Dist (cm) Miguel Angel (m/s) Norm Miguel Angel (m/s) Right Peroneal Motor (Ext Dig Brev) Ankle ? 3.8 <4.0 2.5 >2.5 2.9 100.0 Ankle Ext Dig Brev 3.8 0.0 B Fib ? 9.4 2.5 2.9 100.0 B Fib Ankle 5.6 27.0 48 >40 Poplt ? 10.1 2.5 2.9 100.0 Poplt B Fib 0.7 5.0 71 >40 Left Tibial Motor (Abd Vega Brev) Ankle ? 4.0 <5 6.1 >2.5 8.0 100.0 Ankle Abd Vega Brev 4.0 0.0 Knee ? 10.0 7.4 9.6 121.3 Knee Ankle 6.0 0.0 >40 Right Tibial Motor (Abd Vega Brev) Ankle ? 3.5 <5 6.8 >2.5 8.5 100.0 Ankle Abd Vega Brev 3.5 0.0 Knee ? 9.5 6.5 8.2 95.6 Knee Ankle 6.0 35.0 58 >40 EMG ?Side Muscle Nerve Root Ins Act Fibs Psw Amp Dur Poly Recrt Int Pat Comment Right AbdHallucis MedPlantar S1-2 Nml Nml Nml Nml Nml 0 Nml Complete Right AntTibialis Dp Br Peron L4-5 Nml Nml Nml Nml Nml 0 Nml Complete Right PostTibialis Tibial L5, S1 Nml Nml Nml Nml Nml 0 Nml Complete Right MedGastroc Tibial S1-2 Nml Nml Nml Nml Nml 0 Nml Complete Right VastusMed Femoral L2-4 Nml Nml Nml Nml Nml 0 Nml Complete Left AbdHallucis MedPlantar S1-2 Nml Nml Nml Nml Nml 0 Nml Complete Left AntTibialis Dp Br Peron L4-5 Nml Nml Nml Nml Nml 0 Nml Complete Left PostTibialis Tibial L5, S1 Nml Nml Nml Nml Nml 0 Nml Complete Left MedGastroc Tibial S1-2 Nml Nml Nml Nml Nml 0 Nml Complete Left VastusMed Femoral L2-4 Nml Nml Nml Nml Nml 0 Nml Complete FINDINGS: All motor and sensory nerves tested showed normal latencies, amplitudes and conduction velocities. Concentric needle EMG was performed in selected muscles of the bilateral lower extremity. Study did not reveal signs of electric abnormalities as shown in the table above. IMPRESSION: 1. This is a normal study. 2. There is no electrodiagnostic evidence for peroneal neuropathy, tibial neuropathy, lumbosacral plexopathy, lumbar radiculopathy, or peripheral neuropathy. 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 Thank you for your kind referral. Bernadette Olmedo MD, PATRICIA Board Certified, [place] Board [employer] Physical Medicine and Rehabilitation (ABPMR) Board Certified, [place] Board of Electrodiagnostic Medicine (ABEM) CODIN [id number] x 2 MTDD
== END 2025-01-19 14:07 | disposition home or self-care (01) ==
LOC: HO.NEURO 14:06
PROVIDERS: PCP Family Medicine; Visit Provider Family Medicine
DX: R20.0 Anesthesia of skin (principal); R20.2 Paresthesia of skin
CPT/HCPCS: 95886; 95909

== ENCOUNTER → 2025-01-19 14:13 | Outpatient (BNV) | payer MEDICARE, MEDICAID, SELFPAY | PROVIDERS: PCP Family Medicine; Visit Provider Physical Medicine & Rehabilitation | DX: R20.2 Paresthesia of skin (principal) | CPT/HCPCS: 95886; 95909 ==

== ENCOUNTER 2025-02-20 13:37 | Outpatient (REF) | payer MEDICARE, MEDICAID, SELFPAY ==
--- OUTSIDE RECORDS SUMMARY | 2025-02-20 11:00 | XMS_ITS | Encounter Summary ---
Author Organization [employer] Address [address] [facility] 7t [place] [address] Care Team Providers Care Manager Lvn Name Role Phone Bharati Soriano MD Primary Care Provider [phone]- [phone] Vasyl Boles MD Unavailable Amador Green MD Unavailable [phone] Babak Sparks MD Unavailable [phone] Encounter Details Date Type Department Care Team (Late st Contact Info) Description 02/20/2025 11:00 AM EDT Office Visit [facility] [address] [place] [address] Mily Alfredo FNP [address] [place], [place] [phone] Chronic low back pain, unspecified back pain laterality, unspecified whether sciatica present (Primary Dx); 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 Social History Tobacco Use Types Packs/Day Years Used Date Smoking Tobacco: Never Passive Smoke Exposure: Never Smokeless Tobacco: Never Depression Answer Date Recorded Patient Health Questionnaire-9 Score 0 12/06/2024 Patient Health Questionnaire-9 Score 0 12/06/2024 Last PHQ-9: Questionnaire Data Not on file 0 12/06/2024 Housing Stability Answer Date Recorded What is [...] Date Recorded Patient Health Questionnaire-2 Score 0 12/06/2024 Internet Access Answer Date Recorded Internet Access Q1 Yes 12/29/2024 Internet Access Q2 Not on file 12/29/2024 Comments Unknown Sex and Gender Information Value Date Recorded Sex Assigned at Female 04/13/2022 10:14 AM EDT Legal Sex Female 10:14 AM EDT Gender Identity Female 04/13/2022 10:14 AM EDT Sexual Orientation Straight 04/13/2022 10 :14 AM EDT documented as of this encounter Progress Notes * Mily Alfredo, WARPING MILL OPERATOR - 02/20/2025 11:00 AM EDT Subjective: Sara Fink is a 69 y.o. female w/ PMH lumbar radiculopathy, hypertension, hypothyroid, lupus, rectal carcinoma s/p radiation and chemo in 2008, chronic Hep B, anxiety, and osteoporosis, who presents to the office for - [facility] Group visits. Initial Group visit: 07/06/23 Group Topic: Stretching - Reports she received steroid injection of back within the past week. Helps her with pain, but reports that her body takes about 1 week to adjust after each injection. Chronic Pain History: Associated Diagnosis: lumbar radiculopathy, SI joint pain, lupus, chronic low back pain Current pharm tx: Medication: oxycodone-APAP 5-325mg Q6H PRN Non-pharm tx: acupuncture and physical therapy have not been helpful in the past. Massage has been beneficial. Specialists: reports receiving steroid injections [id number] (lumbar/SI) Functional Goals: would like to be [...] normal. 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 (Utox false positive BZO) - 12/19/24: Group - pill count/utox as expected. (Utox false negative oxy - confirmatory positive) - 02/20/25: Group - pill count as expected. Utox pos BZO and Fentanyl. Confirmatory pending Relevant Orders Drug Monitoring, Benzodiazepines, Quantitative, Urine Drug Monitoring, Fentanyl, with Confirmation, Urine POCT MADHU-14 Urine Drug Screen (Completed) Musculoskeletal and Injuries Chronic low back pain - Primary Current Assessment & Plan Good engagement and participation with Group Medical Visit model Encouraged multifactorial approach to pain control including pharm and non-pharm modalities Pill count as expected, utox abnormal. Confirmatory pending. See online media buyer. Follow up: 1-6 months for KILN CAR UNLOADER visit. As scheduled with PCP, or sooner as needed. * Lety Ricks RN - 02/20/2025 11:00 AM EDT KILN CAR UNLOADER executive secretary: PDMP reviewed today. Last fill date: 02/01/25 Percocet 5mg count was 36 anticipated 6 to be remaining. UTOX completed. Positive for BZO, FENT, OXY & THC, Negative for AMP, BAR, BUP, JAXON, MDMA, MET, MOP, MTD, PCP, TCA, . UTOX not as expected. UTOX sent out for BZO and FENT confimation. Will update PCP regarding UTOX results. documented in this encounter Miscellaneous Notes * Assessment & Plan Note - BRENDON Fleming - 02/20/2025 1:20 PM EDTAssociated Problem(s): assisted (current) use of opiate analgesic Timeline: - 09/19/24: Group - pill count/utox as expected. (Utox false positive BZO) - 12/19/24: Group - pill count/utox as expected. (Utox false negative oxy - confirmatory positive) - 02/20/25: Group - pill count as expected. Utox pos BZO and Fentanyl. Confirmatory pending * Assessment & Plan Note - BRENDON Fleming - 02/20/2025 1:18 PM EDTAssociated Problem(s): Chronic low back pain Good engagement and participation with Group Medical Visit model Encouraged multifactorial approach to pain control including pharm and non-pharm modalities Followup every 3 months with pill count and utox Pill count as expected, utox abnormal. Confirmatory pending. See online media buyer. documented in this encounter Plan of Treatment Upcoming Encounters Date Type Department Care Team (Late st Contact Info) Description 03/14/2025 12:45 PM EDT Office Visit [facility] ADULT DENTAL [address] [place] [address] Denzel, Elo [address] [place] [address] 03/27/2025 11:00 AM EDT Office Visit [facility] MEDICINE [address] [place] [address] Scheduled Orders Name Type Priority Associated Diagnoses Orde r Schedule Drug Monitoring, Benzodiazepines, Quantitative, Urine Lab Routine assisted (current) use of opiate analgesic Ordered: 02/20/2025 Drug Monitoring, Fentanyl, with Confirmation, Urine Lab Routine 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 Ordered: 02/20/2025 documented as of this encounter Procedures Procedure Name Priority Date/Time Associated Diagnosis Comments POCT MADHU-14 URINE DRUG SCREEN Routine 02/20/2025 11:35 AM EDT 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 documented in this encounter Results * (ABNORMAL) POCT MADHU-14 Urine Drug Screen (02/20/2025 11:35 AM EDT) THC Positive Negative Cocaine Screen, Urine Negative Negative Opiate Screen, Urine Negative Negative Methamphetamine Screen Urine Negative Negative Amphetamine Screen, Urine Negative Negative Benzodiazepines Screen, Urine Positive(A) Negative Barbiturate Screen, Urine Negative Negative Methadone Screen, Urine Negative Negative Buprenophine Screen, Urine Negative Negative TCA, Urine Negative Negative MDMA Urine Negative Negative ng/mL Oxycodone Screen, Urine Positive Negative Phencyclidine (PCP), Urine Negative Negative Propoxyphene, Urine Negative Negative Fentanyl, Urine Positive(A) Negative Urine Urine specimen obtained by clean catch procedure / Unknown 02/20/2025 11:35 AM EDT Lety Rodney RN - 02/20/2025 11:35 AM EDT UTOX cup Lot#[id number] Exp. 03/20/26 Internal Pass Control Bharati Soriano MD POINT OF CARE TEST ENTER/E DIT ORDERABLES Final Result documented in this encounter Visit Diagnoses Diagnosis Chronic low back pain, unspecified back pain laterality, unspecified whether sciatica present- Primary assisted (current) use of opiate analgesic documented in this encounter Additional Health Concerns Assessment Noted Time PHQ-9 Depression Total Score: 0 12/07/19 25 11:15 AM EDT documented as of this encounter Care Teams Manager Lvn Relationship Specialty Start Date End Date Bharati Soriano MD [address] [place] [address] PCP - General Family Medicine 06/14/18 Vasyl Boles MD [address] [place] [address] Gastroenterology 06/20/24 Amador Green MD [address] [place] [address] Rheumatology 09/18/24 Babak Sparks MD [address] [place] [address] Endocrinology 10/17/24 documented as of this encounter
--- OUTSIDE RECORDS SUMMARY | 2025-02-20 16:10 | XMS_ITS | Encounter Summary ---
Author Organization [employer] Address [address] [facility] 7t [place] [address] Care Team Providers Care Finish Repair Worker Name Role Phone Bharati Soriano MD Primary Care Provider [phone]- [phone] Vasyl Boles MD Unavailable [phone] Amador Green MD Unavailable Babak Sparks MD Unavailable Reason for Visit * Reason Comments Med Refill Encounter Details Date Type Department Care Team (Late Contact Info) Description 10/05/2022 Refill [facility] MEDICINE [address] [place], [place] [phone] Bharati Soriano MD [address] [place], [place] [phone] Wheeze Social History Tobacco Use Types Packs/Day [...] Department Care Team (Late Contact Info) Description 03/14/2025 12:45 PM EDT Office Visit [facility] ADULT DENTAL [address] [place] [address] Elo Mahoney [address] [place] [address] 03/27/2025 11:00 AM EDT Office Visit [facility] MEDICINE [address] [place] [address] documented as of this encounter Visit Diagnoses Diagnosis Wheeze Wheezing documented in this encounter Care Teams Finish Repair Worker Relationship Specialty Start Date End Date Bharati Soriano MD [address] [place] [address] PCP - General Family Medicine 06/14/18 Vasyl Boles MD [address] [place] [address] [address] [place] [address] Gastroenterology 06/20/24 Amador Green MD [address] [place] [address] Rheumatology 09/18/24 Babak Sparks MD [address] [place] [address] Drive [address] [place] [address] Endocrinology 10/17/24 documented as of this encounter
--- OUTSIDE RECORDS SUMMARY | 2025-02-20 16:10 | XMS_ITS | Encounter Summary ---
Author Organization [employer] Address [address] [facility] 7t [place] [address] Care Team Providers Care Wearing Apparel Assembler Name Role Phone Bharati Soriano MD Primary Care Provider [phone] Vasyl Boles MD Unavailable [phone] Amador Green MD Unavailable Babak Sparks MD Unavailable Reason for Visit * Reason Onset Date Comments Med Refill 03/31/2024 Encounter Details Date Type Department Care Team (Late st Contact Info) Description 03/31/2024 Telephone [facility] MED[facility]INE [address] [place], [place] [phone] Bharati Soriano MD [address] [place], [place] [phone] Med Refill Social History Tobacco Use Types [...] be sent to: [facility]/pharmacy #[id number] [place] [address] documented in this encounter Plan of Treatment Upcoming Encounters Date Type Department Care Team (Late st Contact Info) Description 03/14/2025 12:45 PM EDT Office Visit [facility] ADULT DENTAL [address] [place] [address] Denzel, Elo [address] [place] [address] 03/27/2025 11:00 AM EDT Office Visit [facility] MEDICINE [address] [place] [address] documented as of this encounter Visit Diagnoses Not on filedocumented in this encounter Additional Health Concerns Assessment Noted Time PHQ-9 Depression Total Score: 1 01/14/20 24 10:00 AM EDT documented as of this encounter Care Teams Wearing Apparel Assembler Relationship Specialty Start Date End Date Bharati Soriano MD [address] [place] [address] PCP - General Family Medicine 06/14/18 Vasyl Boles MD [address] [place] [address] [address] [place] [address] Gastroenterology 06/20/24 Amador Green MD [address] [place] [address] Rheumatology 09/18/24 Babak Sparks MD [address] [place] [address] Drive [address] [place] [address] Endocrinology 10/17/24 documented as of this encounter
--- OUTSIDE RECORDS SUMMARY | 2025-02-20 16:10 | XMS_ITS | Encounter Summary ---
Author Organization [employer] Address [address] [facility] [address] 7t [place] [address] Care Team Providers Care Pilot Boat Captain Name Role Phone Bharati Soriano MD Primary Care Provider [phone]- [phone] Vasyl Boles MD Unavailable [phone] Amador Green MD Unavailable [phone] Babak Sparks MD Unavailable [phone] Encounter Details Date Type Department Care Team (Late st Contact Info) Description 09/29/2023 Abstract [facility] MED[facility] [address] [place], [place] [phone] Bharati Soriano MD [address] [place], [place] [phone] Social History Tobacco Use Types Packs/Day Years [...] Description 03/14/2025 12:45 PM EDT Office Visit [facility] ADULT DENTAL [address] [place] [address] Denzel, Elo [address] [place] [address] 03/27/2025 11:00 AM EDT Office Visit [facility] [address] [place] [address] documented as of this encounter Procedures Procedure [...] documented as of this encounter Care Teams Pilot Boat Captain Relationship Specialty Start Date End Date Bharati Soriano MD [address] [place] [address] PCP - General Family Medicine 06/14/18 Vasyl Boles MD [address] [place] [address] [address] [place] [address] Gastroenterology 06/20/24 Amador Green MD [address] [place] [address] Rheumatology 09/18/24 Babak Sparks MD [address] [place] [address] Drive [address] [place] [address] Endocrinology 10/17/24 documented as of this encounter
--- OUTSIDE RECORDS SUMMARY | 2025-02-20 16:10 | XMS_ITS | Encounter Summary ---
Author Organization [employer] Address [address] [facility] 7t [place] [address] Care Team Providers Care Global Climate Change Analyst Name Role Phone Bharati Soriano MD Primary Care Provider [phone] Vasyl Boles MD Unavailable Amador Green MD Unavailable Babak Sparks MD Unavailable Encounter Details Date Type Department Care Team (Late st Contact Info) Description 10/12/2022 Abstract [facility] MEDICINE [address] [place], [place] [phone] Bharati Soriano MD [address] [place], [place] [phone] Social History Tobacco Use Types Packs/Day Years [...] PM EDT documented as of this encounter Functional Status * Over the past 2 weeks, how often have you been bothered by any of the following problems? Question Answer Date of Assessment Author Patient Health Questionnaire-2 Score 0 09/2022 2:27 PM EDT Isaura Goode MA * Over the past 2 weeks, how often have you been bothered by any of the following problems? Question Answer Date of Assessment Author Little interest or pleasure in doing things Not at all 10/15/2022 2:27 PM JENNIFERT Isaura Goode [place] Feeling down, depressed, or hopeless Not at all 10/15/2022 2:27 PM EDT Isaura Goode [place] Trouble falling or staying asleep, or sleeping too much Not at all 10/15/2022 2:27 PM EDT Randolph Goode MA Feeling tired or having carlota le energy Not at all 10/15/2022 2:27 PM JENNIFERT Isaura Goode MA Poor appetite or overeating Not at all 10/15/2022 2: 27 PM JENNIFERT Isaura Goode MA Feeling bad about yourself - or that you are a failure or have let yourself or your family down Not at all 10/15/2022 2:27 PM EDT Isaura Estrella MA Trouble concentrating on thi ngs, such as reading the newspaper or watching television Not at all 10/15/2022 2:27 PM JENNIFERT Isaura Goode MA Moving or speaking so slowly that other people could have noticed? Or the opposite - being so fidgety or restless that you have been moving around a lot more than usual. Not at all 10/15/2022 2:27 PM JENNIFERT Isaura Goode MA Thoughts that you would be b anoop off or hurting yourself in some way Not at all 10/15/2022 2:27 PM EDT Isaura Goode MA Patient Health Questionnaire -9 Score 0 10/15/2022 2:27 PM EDT Isaura Goode MA documented as of this encounter Plan of Treatment Upcoming Encounters Date Type Department Care Team (Late st Contact Info) Description 03/14/2025 12:45 PM EDT Office Visit [facility] ADULT DENTAL [address] [place] [address] Elo Mahoney [address] [place] [address] 03/27/2025 11:00 AM EDT Office Visit [facility] MEDICINE [address] [place] [address] documented as of this encounter Visit Diagnoses Not on filedocumented in this encounter Care Teams Global Climate Change Analyst Relationship Specialty Start Date End Date Bharati Soriano MD [address] [place], [place] [phone] PCP - General Family Medicine 06/14/18 Vasyl Boles MD [address] [place] [address] [address] [place] [phone] Gastroenterology 06/20/24 Amador Green MD [address] [place] [address] Rheumatology 09/18/24 Babak Sparks MD [address] [place] [address] Drive [address] [place] [address] Endocrinology 10/17/24 documented as of this encounter
--- OUTSIDE RECORDS SUMMARY | 2025-02-20 16:10 | XMS_ITS | Encounter Summary ---
Author Organization [employer] Address [address] [facility] 7t [place] [address] Care Team Providers Care Rotary Kiln Operator Name Role Phone Bharati Soriano MD Primary Care Provider [phone] Vasyl Boles MD Unavailable [phone] Amador Green MD Unavailable Babak Sparks MD Unavailable Encounter Details Date Type Department Care Team (Late st Contact Info) Description 06/12/2022 Orders Only [facility] [address] [place], [place] [phone] Leena Verdin ANP [address] [place], [place] [phone] Social History Tobacco Use Types Packs/Day Years [...] Description 03/14/2025 12:45 PM EDT Office Visit [facility] ADULT DENTAL [address] [place] [address] Elo Mahoney [address] [place] [address] 03/27/2025 11:00 AM EDT Office Visit [facility] MEDICINE [address] [place] [address] documented as of this encounter Visit Diagnoses Not on filedocumented in this encounter Care Teams Rotary Kiln Operator Relationship Specialty Start Date End Date Bharati Soriano MD [address] [place] [address] PCP - General Family Medicine 06/14/18 Vasyl Boles MD [address] [place] [address] DR [facility] [address] [place] [phone] Gastroenterology 06/20/24 Amador Green MD [address] [place] [address] Rheumatology 09/18/24 Babak Sparks MD [address] [place] [address] Drive [address] [place] [address] Endocrinology 10/17/24 documented as of this encounter
--- OUTSIDE RECORDS SUMMARY | 2025-02-20 16:10 | XMS_ITS | Encounter Summary ---
Author Organization [employer] Address [address] [place] [address] 7 [place] [address] Care Team Providers Care Airborne Operations Name Role Phone Bharati Soriano MD Primary Care Provider [phone] Vasyl Boles MD Unavailable Amador Green MD Unavailable [phone] Babak Sparks MD Unavailable [phone] Reason for Visit * Reason Onset Date Comments Other 11/03/2022 Encounter Details Date Type Department Care Team (Late st Contact Info) Description 11/03/2022 Telephone [facility] MEDICINE [address] [place], [place] [phone] Bharati Soriano MD [address] [place], [place] [phone] Other Social History Tobacco Use Types Packs/Day [...] Description 03/14/2025 12:45 PM EDT Office Visit [facility] ADULT DENTAL [address] [place] [address] Denzel, Elo [address] [place] [address] 03/27/2025 11:00 AM EDT Office Visit [facility] MED[facility]INE [address] [place] [address] documented as of this encounter Visit Diagnoses Not on filedocumented in this encounter Additional Health Concerns Assessment Noted Time PHQ-9 Depression Total Score: 0 10/16/19 23 2:27 PM EDT documented as of this encounter Care Teams Airborne Operations Relationship Specialty Start Date End Date Bharati Soriano MD [address] [place] [address] PCP - General Family Medicine 06/14/18 Vasyl Boles MD [address] [place] [address] [address] [place] [address] Gastroenterology 06/20/24 Amador Green MD [address] [place] [address] Rheumatology 09/18/24 Babak Sparks MD [address] [place] [address] Drive [address] [place] [address] Endocrinology 10/17/24 documented as of this encounter
--- OUTSIDE RECORDS SUMMARY | 2025-02-20 16:10 | XMS_ITS | Encounter Summary ---
Author Organization [employer] Address 75 [facility] 7t [place] [address] Care Team Providers Care Enrobing Machine Feeder Name Role Phone Bharati Soriano MD Primary Care Provider [phone] Vasyl Boles MD Unavailable Amador Green MD Unavailable Babak Sparks MD Unavailable [phone] Reason for Visit * Reason Onset Date Comments requesting a call back 09/07/2022 Encounter Details Date Type Department Care Team (Late st Contact Info) Description 09/07/2022 Telephone [facility] MEDICINE [address] [place], [place] [phone] Bharati Soriano MD [address] [place] [address] requesting a call back Social History Tobacco [...] 12:45 PM EDT Office Visit [facility] ADULT DENTAL [address] [place] [address] Denzel, Elo [address] [place] [address] 03/27/2025 11:00 AM EDT Office Visit [facility] MEDICINE [address] [place] [address] documented as of this encounter Visit Diagnoses Not on filedocumented in this encounter Care Teams Enrobing Machine Feeder Relationship Specialty Start Date End Date Bharati Soriano MD [address] [place] [address] PCP - General Family Medicine 06/14/18 Vasyl Boles MD [address] [place] [address] DR [facility] [address] [place] [address] Gastroenterology 06/20/24 Amador Green MD [address] [place] [address] Rheumatology 09/18/24 Babak Sparks MD [address] [place] [address] Drive [address] [place] [address] Endocrinology 10/17/24 documented as of this encounter
--- OUTSIDE RECORDS SUMMARY | 2025-02-20 16:10 | XMS_ITS | Encounter Summary ---
Author Organization [employer] Address 75 [facility] 7t [place] [address] Care Team Providers Care Peer Educator Name Role Phone Bharati Soriano MD Primary Care Provider [phone] Vasyl Boles MD Unavailable Amador Green MD Unavailable Babak Sparks MD Unavailable Reason for Visit * Reason Comments Med Change Request Encounter Details Date Type Department Care Team (Late st Contact Info) Description 09/08/2022 Refill [facility] MEDICINE [address] [place], [place] [phone] Bharati Soriano MD [address] [place], [place] [phone] Social History Tobacco Use Types Packs/Day Years [...] Description 03/14/2025 12:45 PM EDT Office Visit [facility] ADULT DENTAL [address] [place] [address] Denzel, Elo [address] [place] [address] 03/27/2025 11:00 AM EDT Office Visit [facility] MEDICINE [address] [place] [address] documented as of this encounter Visit Diagnoses Not on filedocumented in this encounter Care Teams Peer Educator Relationship Specialty Start Date End Date Bharati Soriano MD [address] [place] [address] PCP - General Family Medicine 06/14/18 Vasyl Boles MD [address] [place] [address] [address] [place] [address] Gastroenterology 06/20/24 Amador Green MD [address] [place] [address] Rheumatology 09/18/24 Babak Sparks MD [address] [place] [address] Drive [address] [place] [address] Endocrinology 10/17/24 documented as of this encounter
--- OUTSIDE RECORDS SUMMARY | 2025-02-20 16:10 | XMS_ITS | Encounter Summary ---
Author Organization [employer] Address 75 [facility] 7t [place] [address] Care Team Providers Care Photography Spotter Name Role Phone Bharati Soriano MD Primary Care Provider [phone]- [phone] Vasyl Boles MD Unavailable [phone] Amador Green MD Unavailable [phone] Babak Sparks MD Unavailable [phone] Reason for Visit * Reason Onset Date Comments Med Refill 12/01/2024 Encounter Details Date Type Department Care Team (Late st Contact Info) Description 12/01/2024 Telephone [facility] MEDICINE [address] [place], [place] [phone] Bharati Soriano MD [address] [place], [place] [phone] Med Refill Social History Tobacco Use Types [...] * Telephone Encounter - Kelechi Loyd - 12/01/2024 8:55 AM EDT TC from pt requesting medication refill. Medications needing refill: oxyCODONE-acetaminophen (Percocet) 5-325 MG table To be sent to: [facility]/pharmacy #[id number] [place] [address] documented in this encounter Plan of Treatment Upcoming Encounters Date Type Department Care Team (Late st Contact Info) Description 03/14/2025 12:45 PM EDT Office Visit [facility] ADULT DENTAL [address] [place] [address] Denzel, Elo [address] [place] [address] 03/27/2025 11:00 AM EDT Office Visit [facility] MEDICINE [address] [place] [address] documented as of this encounter Visit Diagnoses Not on filedocumented in this encounter Additional Health Concerns Assessment Noted Time PHQ-9 Depression Total Score: 1 01/14/20 24 10:00 AM EDT documented as of this encounter Care Teams Photography Spotter Relationship Specialty Start Date End Date Bharati Soriano MD [address] [place] [address] PCP - General Family Medicine 06/14/18 Vasyl Boles MD [address] [place] [address] [address] [place] [phone] Gastroenterology 06/20/24 Amador Green MD [address] [place] [address] Rheumatology 09/18/24 Babak Sparks MD [address] [place] [address] Drive [address] [place] [address] Endocrinology 10/17/24 documented as of this encounter
--- OUTSIDE RECORDS SUMMARY | 2025-02-20 16:10 | XMS_ITS | Encounter Summary ---
Author Organization [employer] Address [address] [facility] 7t [place] [address] Care Team Providers Care Crop Adjuster Name Role Phone Bharati Soriano MD Primary Care Provider [phone]- [phone] Vasyl Boles MD Unavailable [phone] Amador Green MD Unavailable Babak Sparks MD Unavailable [phone] Reason for Visit * Reason Comments Med Refill Encounter Details Date Type Department Care Team (Late st Contact Info) Description 07/16/2024 Refill [facility] MEDICINE [address] [place], [place] [phone] Bharati Soriano MD [address] [place], [place] [phone] Mild intermittent asthma, unspecified whether complicated; Acquired [...] Description 03/14/2025 12:45 PM EDT Office Visit [facility] ADULT DENTAL [address] [place] [address] Denzel Elo [address] [place] [address] 03/27/2025 11:00 AM EDT Office Visit [facility] MEDICINE [address] [place] [address] documented as of this encounter Visit Diagnoses Diagnosis Mild intermittent asthma, unspecified whether complicated Acquired hypothyroidism Unspecified hypothyroidism documented in this encounter Additional Health Concerns Assessment Noted Time PHQ-9 Depression Total Score: 1 01/14/20 24 10:00 AM EDT documented as of this encounter Care Teams Crop Adjuster Relationship Specialty Start Date End Date Bharati Soriano MD [address] [place] [address] PCP - General Family Medicine 06/14/18 Vasyl Boles MD [address] [place] [address] [place] [address] Gastroenterology 06/20/24 Amador Green MD [address] [place] [address] Rheumatology 09/18/24 Babak Sparks MD [address] [facility] [address] [place] [address] Endocrinology 10/17/24 documented as of this encounter
--- OUTSIDE RECORDS SUMMARY | 2025-02-20 16:10 | XMS_ITS | Encounter Summary ---
Author Organization [employer] Address [address] [facility] 7t [place] [address] Care Team Providers Care Electric Razor Mechanic Name Role Phone Bharati Soriano MD Primary Care Provider + [phone] Vasyl Boles MD Unavailable [phone] Amador Green MD Unavailable [phone] Babak Sparks MD Unavailable [phone] Encounter Details Date Type Department Care Team (Latest Contact Info) Description 03/16/2022 Abstract [facility] Dental, Provider, DDS Social History [...] Description 03/14/2025 12:45 PM EDT Office Visit [facility] ADULT DENTAL [address] [place], [place] [phone] Denzel Elo [address] [place] [address] 03/27/2025 11:00 AM EDT Office Visit [facility] MEDICINE [address] [place], [place] [phone] documented as of this encounter Visit Diagnoses Not on filedocumented in this encounter Care Teams Electric Razor Mechanic Relationship Specialty Start Date End Date Bharati Soriano MD [address] [place] [address] PCP - General Family Medicine 06/14/18 Vasyl Boles MD [address] [place] [address] [address] [place] [address] Gastroenterology 06/20/24 Amador Green MD [address] [place] [address] Rheumatology 09/18/24 Babak Sparks MD [address] [place] [address] Drive [address] [place] [address] Endocrinology 10/17/24 documented as of this encounter
--- OUTSIDE RECORDS SUMMARY | 2025-02-20 16:10 | XMS_ITS | Clinical Summary ---
Author Organization [email or web address] Address [address] [facility] [address] [place] [address] Care Team Providers Care Car Repairer Helper Name Role Phone Bharati Soriano MD Primary Care Provider [phone] Vasyl Boles MD Unavailable Amador Green MD Unavailable [phone] Babak Sparks MD Unavailable Allergies Active Allergy [...] for 7 nights 45 g 025 Active losartan (Cozaar) 25 MG tabletIndications :Primary hypertension,House Visitor mayte renal impairment, stage 2 (mild) Take [...] CRUSH, CHEW, OR SPLIT 90 capsule 1 Active lidocaine (Lidoderm) 5 % patchIndications: Chronic low back pain, unspecified back pain laterality, unspecified whether sciatica present APPLY 1 PATCH TOPICALLY ONCE PER DAY. REMOVE & DISCARD WITHIN 12 HOURS OR DIRECTED BY MD. 15 patch 2 Active carbamide peroxide (Debrox) 6.5 % otic solutionIndicatio ns:Excessive cerumen in left ear canal 5 drops left year at bedtime for 3 nights 30 mL Active betamethasone, augmented, (Diprolene) 0.05 % lotionIndications :Dermatitis APPLY TOPICALLY TWICE A DAY NEEDED FOR RASH 30 mL Active oxyCODONE-acetami nophen (Percocet) 5-325 MG tabletIndications :Pain Take 1 tablet by mouth every 6 (six) hours if needed for severe pain. 84 tablet Active naloxone (Narcan) 4 mg/0.1 mL nasal spray Administer 1 spray (4 mg) into affected nostril(s) if needed for opioid reversal. May repeat every 2-3 minutes if needed, alternating nostrils, until medical assistance becomes available. 2 each 2 025 2025 Active oxyCODONE-acetami nophen (Percocet) 5-325 MG tabletIndications :Pain Take 1 tablet by mouth every 6 (six) hours if needed for severe pain. 84 tablet 025 2024 Discontinued(R eorder (will not trigger notification to Pharmacy)) Active Problems Problem Noted Date Diagnosed Date Numbness and tingling of both legs below knees 0 12/06/2024 Overview (01/24/2025): Chronic right lower leg numbness and acute left foot numbness. Suspect peripheral neuropathy. Given localization to feet and lower leg. -NCSA 01/2025 IMPRESSION: 1. This is a normal study. 2. There is no electrodiagnostic evidence for peroneal neuropathy, tibial neuropathy, lumbosacral plexopathy, lumbar radiculopathy, or peripheral neuropathy. 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 Assessment & Plan (12/06/2024 2:04 PM EDT): Chronic right lower leg numbness and acute left foot numbness. Suspect peripheral neuropathy. Given localization to feet and lower leg. -ordered NCS 12/06/24. Orders: Vitamin B12/Folate, Serum Panel; Future Syphilis Screen; Future TSH W/Reflex to FT4; Future Nerve conduction test; Future EMG; Future Assessment & Plan (12/06/2024 11:33 AM EDT): Chronic right lower leg numbness and acute left foot numbness. Suspect peripheral neuropathy. Given localization to feet and lower leg. -ordered NCS 12/06/24. Excessive cerumen in left ear canal 12/06/2024 Assessment & Plan (12/06/2024 2:04 PM EDT): -prescribed debrox drops 12/06/24 Orders: carbamide peroxide (Debrox) 6.5 % otic solution; 5 drops left year at bedtime for 3 nights Impacted cerumen of right ear 07/12/2024 Overview [...] lotrimazole (Lotrimin) 1 % vaginal cream 07/12/24 Overweight 07/12/2024 Overview (07/12/2024): Discussed weight, diet, exercise with patient in relation to health conditions. Used motivational interviewing to illicit change talk and established initial goals with patient. Assessment & Plan (07/12/2024 4:14 PM EST): Discussed weight, diet, exercise with patient in relation to health conditions. Used motivational interviewing to illicit change talk and established initial goals with patient. 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 (Utox false positive BZO) - 12/19/24: Group - pill count/utox as expected. (Utox false negative oxy - confirmatory positive) - 02/20/25: Group - pill count as expected. Utox pos BZO and Fentanyl. Confirmatory pending Assessment & Plan (12/19/2024 7:42 PM EDT): Timeline: - 09/19/24: Group - pill count/utox as expected. (Utox false positive BZO) - 12/19/24: Group - pill count as expected. Utox neg oxy, confirmatory testing pending (BPI) Assessment & Plan (12/06/2024 2:04 PM EDT): Medication: Percocet 5-325mg Q6H PRN Indication: lumbar radiculopathy Last JOINERY FACTORY WORKER Agreement: 07/11/24 Assessment & Plan (09/19/2024 2:07 PM EDT): Timeline: - 09/19/24: Group - pill count as expected. Utox positive BZO, confirmatory testing sent out Assessment & Plan (07/13/2024 4:18 PM EST): Medication: Percocet 5-325mg Q6H PRN Indication: lumbar radiculopathy Last JOINERY FACTORY WORKER Agreement: 08/24/23 Assessment & Plan (04/04/2024 5:26 [...] Overview (07/12/2024): Lab Results Component Value Date [id number] 35.8 04/26/2024 Insomnia 12/22/2023 Other specified health status 04/24/2023 Overview (07/12/2024): -next comprehensive annual evaluation due after 07/12/25 -eye care facilitated by [facility] -dental home is [facility] -Health care proxy given and filed 12/22/23 Assessment & Plan (07/12/2024 4:10 PM EST): -next comprehensive annual evaluation due after 07/12/25 -eye care facilitated by [facility] -dental home is [facility] -Health care proxy given and filed 12/22/23 Assessment & Plan (12/22/2023 2:27 PM EDT): -next physical exam due after 05/12/2024 -eye care facilitated by [facility] -dental home is [facility] -Health care proxy given and [...] Sicca symptoms, positive LUISITO, positive 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 Followed by rheumatology. Lat note from Amador Green from 09/14/24 reviewed. 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 Followed by rheumatology. Lat note from Amador Green from 09/14/24 reviewed. 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 Followed by rheumatology. Lat note from Dr. Flores 04/06/23 reviewed. 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 Followed by rheumatology. Lat note from Dr. Flores 04/06/23 reviewed. 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 Followed by rheumatology. Lat note from Dr. Flores 04/06/23 reviewed. 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 Followed by rheumatology. -Plaquenil 200mg BID started 04/2018 -continue regular eye exams -s/p flu vaccine 02/2020 done at [facility] -PCV 04/2019 Chronic diarrhea 05/08/2022 Osteoporosis 05/08/2022 Overview [...] consider transitioning to Prolia Assessment & Plan (12/06/2024 2:04 PM EDT): Final Menstrual Period: > 10 years ago [...] due to acute blood loss 12/06/2012 Overview (12/06/2024): Lab Results Component Value Date HGB 11.8 [...] diarrhea Tubular adenoma of colon 06/15/2012 Overview (12/06/2024): -On colonoscopy 02/2017 and 03/20/[address] Boles -discussed due in 3 years would be 03/2025. Pt will call to get appt. 12/06/24 Assessment & Plan (12/06/2024 2:04 PM EDT): -On colonoscopy 02/2017 and 03/20/[address] Boles -discussed due in 3 years would be 03/2025. Pt will call to get appt. 12/06/24 Assessment & Plan (05/12/2023 10:17 AM EST): -On colonoscopy 02/2017 and 03/20/[address] Boles Assessment & Plan (05/11/2022 12:58 PM EST): -On colonoscopy 02/2017 and 03/20/[address] Boles Incontinence of feces 06/15/2012 Chronic low back pain 04/04/2012 Assessment & Plan (02/20/2025 1:18 PM EDT): Good engagement and participation with Group Medical Visit model Encouraged multifactorial approach to pain control including pharm and non-pharm modalities Followup every 3 months with pill count and utox Pill count as expected, utox abnormal. Confirmatory pending. See treatment plant operator. Assessment & Plan (12/19/2024 7:40 PM EDT): Good engagement and participation with Group Medical Visit model Encouraged multifactorial approach to pain control including pharm and non-pharm modalities Followup every 3 months with pill count and utox Pill count as expected, utox neg for oxy. Confirmatory pending. See treatment plant operator. Assessment & Plan (09/19/2024 2:07 PM EDT): [...] opioid. Confirmatory testing sent to lab. See treatment plant operator. Assessment & Plan (07/12/2024 4:09 PM EST): [...] -UTOX and pill count as expected. See treatment plant operator for further details -Encouraged to cont with [...] Depressive disorder 04/04/2012 Overview (07/12/2024): Follows with [facility]. Assessment & Plan (01/04/2024 2:33 PM EDT): [...] modifications -Continue current medications Assessment & Plan (12/06/2024 2:04 PM EDT): -Blood pressure is at goal [...] teeth , limited to enamel 09/07/2024 10/04/2024 Red-colored urine 07/12/2024 01/24/2025 Overview (07/12/2024): Reports blood-tinged urine, hx of cystitis. -sent UA and culture 07/12/24 -prescribed phenazopyridine (Pyridium) 100 MG tablet Assessment & Plan (07/12/2024 4:16 PM EST): Reports blood-tinged urine, hx of cystitis. -sent UA and culture 07/12/24 -prescribed phenazopyridine (Pyridium) 100 MG tablet Dietary counseling 07/12/2024 Assessment & Plan (07/12/2024 [...] saturated fat, and sodium. Exercise counseling 07/12/2024 12/07/19 Assessment & Plan (07/12/2024 4:11 PM EST): Exercise Recommendations: At least 150 minutes of moderate-intensity physical activity per week, or an equivalent combination of moderate- and vigorous-intensity activity Normal oral exam 05/12/2023 12/06/2024 Overview (05/12/2023): -Normal growth and development. -Anticipatory guidance discussed. -Preventative care / harm reduction discussed. Assessment & Plan (05/12/2023 10:18 AM EST): -Normal growth and development. -Anticipatory guidance discussed. -Preventative care / harm reduction discussed. Tremor 05/08/2022 05/11/2022 Dyspnea 11/11/2017 05/08/2022 Palpitations 11/11/2017 07/12/2024 Dislocation of temporomandibular joint 12/06/2012 04/24/2023 Encounters * This document contains information received from the source organization and may not represent a complete record from that organization. 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 02/20/2025 Telephone [facility] [address] [place] [phone] Lety Ricks RN Abormal UTOX results 02/20/2025 Travel 02/13/2025 Telephone [facility] [address] [place] [address] Jocelyn Randall RN 02/05/2025 Refill [facility] [address] [place] [phone] Bharati Soriano MD Primary hypertension; Chronic renal impairment, stage 2 (mild) 01/31/2025 Refill [facility] [address] [place] [address] Jocelyn Randall RN Pain 01/31/[address] [address] Bharati Soriano MD Med Refill 01/24/[address] [address] Vilma Williamson RN Results 12/29/2024 Refill [facility] [address] [place] [phone] Bharati Soriano MD Pain 12/19/2024 11:00 AM EDT Office Visit [address] [phone] Mily Alfredo, DRAMATIC COACH Chronic low back pain, unspecified back pain laterality, unspecified whether sciatica present (Primary Dx); 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 12/19/2024 Telephone [facility] [address] [place] [phone] Lety Ricks RN Abnormal UTOX today; BPI results 12/19/2024 Orders Only [facility] [address] [place] [address] Mily Alfredo, DRAMATIC COACH 12/19/2024 Travel 12/06/2024 11:00 AM EDT Office Visit [address] [address] Bharati Soriano MD Numbness and tingling of both legs below knees (Primary Dx); Viral warts, unspecified type; Dermatitis; Venous stasis; Excessive cerumen in left ear canal; Systemic lupus erythematosus, unspecified SLE type, unspecified organ involvement status ([facility]); Osteoporosis, unspecified osteoporosis type, unspecified pathological fracture presence; Primary hypertension; 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; Tubular adenoma of colon; Overweight with body mass index (BMI) 25.0-29.9; Dietary counseling; Exercise counseling 12/06/2024 Refill [facility] [address] [place] [phone] Bharati Soriano MD Dermatitis 12/06/[address] [address] Bharati Soriano MD Durable Medical Equipment (DME Order: Compression Stockings) 12/06/2024 Travel 12/05/[address] [address] Bharati Soriano MD CHART PREP 12/01/2024 Refill [facility] [address] [place] [address] Jocelyn Randall RN Pain 12/01/[address] [address] Bharati Soriano MD Med Refill 11/28/2024 Patient Outreach [facility] [address] [place], [place] [phone] Bharati Soriano MD Pre-visit Planning ([facility] unable to reach [facility]) from Last 3 Months Immunizations Immunization Administration Dates Next Due Hep A, Adult [...] Sign Reading Time Taken Comments Blood Pressure 114/82 12/06/2024 11:14 AM EDT Pulse 96 12/06/2024 11:14 AM EDT Temperature 36.1 C (96.9 F) 07/12/2024 2:58 PM EST Respiratory Rate 16 12/06/2024 11:14 AM EDT Oxygen Saturation 98% 07/12/2024 2:58 PM EST Inhaled Oxygen Concentration - - Weight 59 kg (130 lb) 12/06/2024 11:14 AM EDT Height 152.4 cm (5') 12/06/2024 11:14 AM EDT Body Mass Index 25.39 12/06/2024 11:14 AM EDT Plan of Treatment Upcoming Encounters Date Type Department Care Team (Late st Contact Info) Description 03/14/2025 12:45 PM EDT Office Visit [facility] ADULT DENTAL [address] [place] [address] Denzel, Elo [address] [place] [address] 03/27/2025 11:00 AM EDT Office Visit [facility] MED[facility]INE [address] [place] [address] Health Maintenance Due Date Last Done Comments CT Colonography 1955 FIT DNA/Cologuard 1955 FIT 1955 FOBT 1955 Sigmoidoscopy 1955 Dental X-Ray: Bitewings 07/21/2024 07/20/19 24 (Patient Refused) COVID-19 Vaccine ( season) 2025 05/12/2023, 01/22/2022, 01/22/2022, Additional history exists Influenza Vaccine (#1) 2025 , 03/04/2022, 03/26/2021, Additional history exists Dental Oral Exam 03/11/2025 09/07/2024, 07/20/2023 Dental Prophylaxis 03/11/2025 09/07/2024, 0 03/09/2024, 07/20/2023, Additional history exists SDOH Screening 06/30/2025 06/30/2024 Alcohol/Substance Use Screening 12/06/2025 12/06/2024 Depression Screening 12/06/2025 12/06/2024, 12/07/19 Tobacco Screening 12/06/2025 12/06/2024 Mammogram 11/14/2026 11/14/2024, 0412/2023, 09/22/2023, Additional history exists Colonoscopy 03/30/2027 03/30/2022 Colorectal [...] Aged 60 years or older Completed 12/22/2023 HIB Vaccines Aged Out No longer eligi ble based on patient's age to complete this topic HPV Vaccines Aged Out No longer eligi ble based on patient's age to complete this topic Hepatitis B Vaccines Discontinued IPV Vaccines Aged Out No longer eligi ble based on patient's age to complete this topic Meningococcal B Vaccine Aged Out No l onger eligible based on patient's age to complete [...] DRUG SCREEN Routine 02/20/2025 11:35 AM EDT 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 POCT MADHU-14 URINE DRUG SCREEN Routine 12/19/2024 11:22 AM EDT Chronic low back pain, unspecified back pain laterality, unspecified whether sciatica present OXYCODONE SCREEN, URINE Routine 12/19/2024 12:00 AM EDT SYPHILIS SCREEN Routine 12/06/2024 12:02 PM EDT Numbness and tingling of both legs below knees VITAMIN B12/FOLATE, SERUM PANEL Routine 12/06/2024 12:02 PM EDT Numbness and tingling of both legs below knees TSH W/REFLEX TO FT4 Routine 12/06/2024 1 1:47 AM EDT Numbness and tingling of both legs below knees BI MAMMOGRAM SCREENING TOMOSYNTHESIS BILATERAL Routine 11/14/2024 1:10 PM EDT PROPHYLAXIS - ADULT Routine 09/07/2024 1 :00 PM EDT Crowded teeth Dental plaque Excessive attrition of teeth, limited to enamel PANORAMIC RADIOGRAPHIC IMAGE Routine 09/07/2024 1:00 PM EDT Crowded teeth Dental plaque Excessive attrition of teeth, limited to enamel PERIODIC ORAL EVALUATION - ESTABLISHED PATIENT Routine 09/07/2024 1:00 PM EDT LIPID PANEL, STANDARD Routine 04/26/2024 10:02 AM EST Dyslipidemia HM COLONOSCOPY Routine 03/30/2022 HEPATITIS C ANTIBODY (EXTERNAL RESULTS ONLY) Routine 03/18/2018 2:33 PM EDT from Last 3 Months or Most Recently Relevant to Health Maintenance Results * (ABNORMAL) POCT MADHU-14 Urine Drug Screen (02/20/2025 11:35 AM EDT) Only the most recent of2 resultswithin the time period is included. THC Positive Negative Cocaine Screen, Urine Negative [...] procedure / Unknown 02/20/2025 11:35 AM EDT Narrative Lety Ricks RN - 02/20/2025 11:35 AM EDT UTOX cup Lot#[id number] Exp. 03/20/26 Internal Pass Control Bharati Soriano MD POINT OF CARE TEST ENTER/E DIT ORDERABLES Final Result * (ABNORMAL) Oxycodone Screen, Urine (12/19/2024 12:00 AM EDT) Oxycodone Urine Screen Positive( A) Not Detect ng/mL [facility] Comment:Oxycodone cut-off is 100 ng/mL.Positive results are unconfirmed and should not be used fornon-medical purposes. 12/19/2024 12/19/2024 Mily Alfredo [facility] URINE ORDERABLES Final Res ult [facility] [address] [place] [phone] * Syphilis Screen (12/06/2024 12:02 PM EDT) Pathologist [facility] Syphilis Screen Nonreactive Nonreactive [facility] Blood Venous blood specimen / Unknown 12/06/2024 12:02 PM EDT 12/06/2024 1:26 PM EDT Bharati Soriano MD LAB BLOOD ORDERABLES Final Result Performing Organization Address [facility]/ZIP Co de Phone Number [facility] [address] [place] [phone] * Vitamin B12/Folate, Serum Panel (12/06/2024 12:02 PM EDT) Pathologist [facility] Vitamin B12 245 200 - 900 pg/mL [facility] Comment:NORMAL 200-900 PG/ML INDETERMINATE 160-199 PG/ML DEFICIENT < 160 PG/ML Folate 7.8 > or = 4.0 ng/mL [facility] Comment:Reference Values:> o r = 4.0 ng/mL< 4.0 ng/mL suggests folate deficiency Methotrexate, aminopterin and folinic acid(leucovorin) are chemotherapeutic agents whose molecularstructures are similar to folate; therefore, the Architectfolate assay cannot be used for patients using these drugs. Blood Venous blood specimen / Unknown 12/06/2024 12:02 PM EDT 12/06/2024 1:26 PM EDT Bharati Soriano MD LAB BLOOD ORDERABLES Final Result Performing Organization Address [facility] Co de Phone Number [facility] [address] [place] [phone] * TSH W/Reflex to FT4 (12/06/2024 11:47 AM EDT) Pathologist [facility] TSH reflex Free T4 3.46 0.32 - 4.0 uIU/mL [facility] Blood Venous blood specimen / Unknown 12/06/2024 11:47 AM EDT 12/06/2024 1:26 PM EDT Bharati Soriano MD LAB BLOOD ORDERABLES Final Result [facility] [address] [facility] [place] [phone] [phone] * BI Mammogram Screening Tomosynthesis Bilateral (11/14/2024 1:10 PM EDT) Anatomical Region Laterality Modality Breast Bilateral Mammography 11/14/2024 1:10 PM EDT Narrative 11/19/2024 1:39 PM EDT [address] [place] [address] Mammography Report Signed Patient: Sara Lancaster MR#: [id number] : 1955 Acct:[id number] Age/Sex: 68 / F ADM Date: 11/14/24 Loc: HO.MAMMO Attending Dr: Bharati Soriano MD Ordering Physician: Bharati Soriano MD Results: 1N egative Date of Service: 11/14/24 Follow Up: 1 Year From Orig ina Mammogram Procedure(s): MM tomosynthesis screening BI Accession Number(s): [id number] cc: Bharati Soriano MD EXAMINATION: MM SCREENING DIGITAL BREAST TOMOSYNTHESIS, BILATERAL CLINICAL INFORMATION: Screening. Asymptomatic. COMPARISON: Mammography: Comparison is made with available priors TECHNIQUE: Digital breast mammography with tomosynthesis is performed in both the craniocaudal and mediolateral oblique views along with computer-aided detection (CAD). FINDINGS: The breasts are heterogeneously dense, which may obscure small masses (ACR BI-RADS breast composition Category c). There are no significant masses, abnormal calcifications, or other abnormalities. MM/MM tomosynthesis screening BI IMPRESSION: No mammographic evidence of malignancy. ASSESSMENT: BI-RADS BI-RADS 1 - Negative RECOMMENDATION: Routine annual mammography screening. 1 year F/U This examination should not preclude the clinical evaluation of a suspicious palpable abnormality. This patient's information was entered into a reminder system with a target due date for their next mammogram. Electronically signed by: Guerda Guerra DO 11/19/2024 01:36 PM EDT RP Dictated By: Guerda Guerra DO Signed By: <Electronically signed by Guerda Guerra DO in OV> 11/19/24 1336 DD/ 1310 TD/TT: 11/14/24 1325 Ocean Forwarder: Procedure Note Donotuseinterpreter, Image - 11/19/2024 [place] [facility] [address] [place], [place] [address] Mammography Report Signed Patient: Davis LancasteradMR#: [id number] : 1955cct:[id number] Age/Sex: 68 / FADM Date: 11/14/24 Loc: HO.MAMMO Attending Dr: Bharati Soriano MD Ordering Physician: Bharati Soriano MDResults: 1N egative Date of Service: 11/14/24Follow Up: 1 Year From Orig inal Mammogram Procedure(s): MM tomosynthesis screening BI Accession Number(s): [id number] cc: Bharati Soriano MD EXAMINATION: MM SCREENING DIGITAL BREAST TOMOSYNTHESIS, BILATERAL CLINICAL INFORMATION: Screening. Asymptomatic. COMPARISON: Mammography: Comparison is made with available priors TECHNIQUE: Digital breast mammography with tomosynthesis is performed in both the craniocaudal and mediolateral oblique views along with computer-aided detection (CAD). FINDINGS: The breasts are heterogeneously dense, which may obscure small masses (ACR BI-RADS breast composition Category c). There are no significant masses, abnormal calcifications, or other abnormalities. MM/MM tomosynthesis screening BI IMPRESSION: No mammographic evidence of malignancy. ASSESSMENT: BI-RADS BI-RADS 1 - Negative RECOMMENDATION: Routine annual mammography screening. 1 year F/U This examination should not preclude the clinical evaluation of a suspicious palpable abnormality. This patient's information was entered into a reminder system with a target due date for their next mammogram. Electronically signed by: Guerda Guerra DO 11/19/2024 01:36 PM EDT RP Dictated By: Guerda Guerra DO Signed By: <Electronically signed by Guerda Guerra DO in OV> 11/19/24 1336 DD/ 1310 TD/TT: 11/14/24 1325 Ocean Forwarder: Bharati Soriano MD IMG BI PROCEDURES Edited R esult - Final * Lipid Panel, Standard (04/26/2024 10:02 AM EST) Triglycerides 118 <150 mg/dL [facility] Comment:Desirable Triglyceri de: less than 150 mg/dLBorderline High Triglyceride 150-199 mg/dLHigh Triglyceride: 200-499 mg/dLVery High Triglyceride: greater than or equal to 5OO mg/dL Cholesterol 173 <200 mg/dL [facility] Comment:Desirable Cholestero l: less than 200 mg/dLBorderline High Cholesterol: 200-239 mg/dLHigh Cholesterol: greater than 239 mg/dL LDL Cholesterol Calculated 84 <100 mg/dL [facility] Comment:Desirable LDL: less than 100 mg/dLNear Optimal/Above Optimal LDL: 110- 129 mg/dLBorderline High LDL: 130-159 mg/dLHigh LDL: 160-189 mg/dLVery High LDL: greater than or equal to 190 mg/dL HDL Cholesterol 66 >40 mg/dL [facility] Comment:Desirable HDL: great er than 40 mg/dL Note: This HDL assay may give artificially low results in patients with liver disease. Blood Venous blood specimen / Unknown 04/26/2024 10:02 AM EST 04/26/2024 10:02 AM EST Bharati Soriano MD LAB BLOOD ORDERABLES Final Result [facility] [address] [place] [address] [phone] * Hm Colonoscopy (03/30/2022) Colonoscopy Tubular adenoma Dr. 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
--- OUTSIDE RECORDS SUMMARY | 2025-02-20 16:10 | XMS_ITS | Encounter Summary ---
Author Organization [employer] Address [address] [place] [address] 7t [place] [address] Care Team Providers Care Therapist Speech Name Role Phone Bharati Soriano MD Primary Care Provider [phone]- [phone] Vasyl Boles MD Unavailable Amador Green MD Unavailable [phone] Babak Sparks MD Unavailable [phone] Reason for Visit * Reason Onset Date Comments Medication Question 06/12/2022 Encounter Details Date Type Department Care Team ([facility] st Contact Info) Description 06/12/[address] [facility] MED[facility] [address] [place], [place] [phone] Bharati Soriano MD [address] [place], [place] [phone] Medication Question Social History Tobacco Use Types [...] Description 03/14/2025 12:45 PM EDT Office Visit [facility] ADULT DENTAL [address] [place] [address] Denzel, Elo [address] [place] [address] 03/27/2025 11:00 AM EDT Office Visit [facility] MED[facility] [address] [place] [address] documented as of this encounter Visit Diagnoses Diagnosis Pain Generalized pain documented in this encounter Care Teams Therapist Speech Relationship Specialty Start Date End Date Bharati Soriano MD [address] [place] [address] PCP - General Family Medicine 06/14/18 Vasyl Boles MD [address] [place] [address] DR [facility] [address] [place] [address] Gastroenterology 06/20/24 Amador Grene MD [address] [place] [address] Rheumatology 09/18/24 Babak Sparks MD [address] [place] [address] Drive [address] [place] [address] Endocrinology 10/17/24 documented as of this encounter
--- OUTSIDE RECORDS SUMMARY | 2025-02-20 16:10 | XMS_ITS | Encounter Summary ---
Author Organization [employer] Address [address] [facility] [address] 7t [place] [address] Care Team Providers Care Naval Marine Engineer Name Role Phone Bharati Soriano MD Primary Care Provider [phone]- [phone] Vasyl Boles MD Unavailable [phone] Amador Green MD Unavailable [phone] Babak Sparks MD Unavailable [phone] Encounter Details Date Type Department Care Team (Late st Contact Info) Description 09/29/2023 Orders Only [facility] [address] [place], [place] [phone] Bryon Fuller MD 230 [place], [place] [phone] Social History Tobacco Use Types Packs/Day Years [...] 12:45 PM EDT Office Visit [facility] ADULT DENTAL [address] [place] [address] Denzel, Elo [address] [place] [address] 03/27/2025 11:00 AM EDT Office Visit [facility] MEDICINE [address] [place] [address] documented as of this encounter Visit Diagnoses Not on filedocumented in this encounter Additional Health Concerns Assessment Noted Time PHQ-9 Depression Total Score: 0 10/16/19 23 2:27 PM EDT documented as of this encounter Care Teams Naval Marine Engineer Relationship Specialty Start Date End Date Bharati Soriano MD [address] [place] [address] PCP - General Family Medicine 06/14/18 Vasyl Boles MD [address] [place] [address] [address] [place] [address] Gastroenterology 06/20/24 Amador Green MD [address] [place] [address] Rheumatology 09/18/24 Babak Sparks MD [address] [place] [address] Endocrinology 10/17/24 documented as of this encounter
--- OUTSIDE RECORDS SUMMARY | 2025-02-20 16:10 | XMS_ITS | Encounter Summary ---
Author Organization [employer] Address [address] [place] [address] 7t [place] [address] Care Team Providers Care Rails Developer Name Role Phone Bharati Soriano MD Primary Care Provider [phone]- [phone] Vasyl Boles MD Unavailable [phone] Amador Green MD Unavailable Babak Sparks MD Unavailable Reason for Visit * Reason Comments Med Refill Encounter Details Date Type Department Care Team (Late st Contact Info) Description 11/17/2022 Refill [facility] [address] [place], [place] [phone] Bharati Soriano MD [address] [place], [place] [phone] Wheeze Social History Tobacco Use Types Packs/Day [...] Description 03/14/2025 12:45 PM EDT Office Visit [facility] [address] [place] [address] Elo Mahoney [address] [place] [address] 03/27/2025 11:00 AM EDT Office Visit [facility] [address] [place] [address] documented as of this encounter Visit Diagnoses Diagnosis Wheeze Wheezing documented in this encounter Additional Health Concerns Assessment Noted Time PHQ-9 Depression Total Score: 0 10/16/19 23 2:27 PM EDT documented as of this encounter Care Teams Rails Developer Relationship Specialty Start Date End Date Bharati Soriano MD [address] [place], [place] [phone] PCP - General Family Medicine 06/14/18 Vasyl Boles MD [address] [place] [address] DR [facility] [address] [place] [address] Gastroenterology 06/20/24 Amador Green MD [address] [place] [address] Rheumatology 09/18/24 Babak Sparks MD [address] [place] [address] Drive [address] [place] [address] Endocrinology 10/17/24 documented as of this encounter
--- OUTSIDE RECORDS SUMMARY | 2025-02-20 16:10 | XMS_ITS | Encounter Summary ---
Author Organization [employer] Address [address] [place] [address] [address], [place] [address] Care Team Providers Care Tank Truck Milk Receiver Name Role Phone Bharati Soriano MD Primary Care Provider [phone] Vasyl Boles MD Unavailable [phone] Amador Green MD Unavailable [phone] Babak Sparks MD Unavailable [phone] Reason for Referral * Consultation (Routine) - Closed Specialty Diagnoses / Procedures Referred By Contac t Referred To Contact Physical Therapy Diagnoses Chronic low back pain, unspecified back pain laterality, unspecified whether sciatica present Bharati Soriano MD [address] [place] [address] Phone: tel: fax: [facility] [place] / , [address] Phone: tel: fax: Referral ID Status Reason Start Date Expiration Date V isits Requested Visits Authorized [id number] Closed Specialty Services Required 10/15/2023 10/14/2024 1 1 Encounter Details Date Type Department Care Team (Late st Contact Info) Description 10/15/2023 Orders Only [facility] MED[facility]INE [address] [place] [address] Bharati Soriano MD [address] [place], [place] [phone] Chronic low back pain, unspecified back pain [...] 12:45 PM EDT Office Visit [facility] ADULT DENTAL [address] [place] [address] DenzelAlElo 230 [place] [address] 03/27/2025 11:00 AM EDT Office Visit [facility] MEDICINE 230 [place] [address] Scheduled Referrals Name Type Priority Associated Diagnoses [...] documented as of this encounter Care Teams Tank Truck Milk Receiver Relationship Specialty Start Date End Date Bharati Soriano MD [address] [place] [address] PCP - General Family Medicine 06/14/18 Vasyl Boles MD [address] [place] [address] DR [facility] [address] [place] [address] Gastroenterology 06/20/24 [place] [address] [place] [address] Rheumatology 09/18/24 Babak Sparks MD [address] [place] [address] Drive [address] [place] [address] Endocrinology 10/17/24 documented as of this encounter
--- OUTSIDE RECORDS SUMMARY | 2025-02-20 16:10 | XMS_ITS | Encounter Summary ---
Author Organization [employer] Address [address] [facility] 7t [place] [address] Care Team Providers Care Fast Food Shift Lead Name Role Phone Bharati Soriano MD Primary Care Provider [phone] Vasyl Boles MD Unavailable Amador Green MD Unavailable Babak Sparks MD Unavailable [phone] Reason for Visit * Reason Comments Med Refill Encounter Details Date Type Department Care Team (Late st Contact Info) Description 07/30/2024 Refill [facility] MEDICINE 230 [place], [place] [phone] Bharati Soriano MD 230 [place], [place] [phone] Gastroesophageal reflux disease without esophagitis Social History [...] Description 03/14/2025 12:45 PM EDT Office Visit [facility] ADULT DENTAL [address] [place] [address] Denzel, Elo 230 [place] [address] 03/27/2025 11:00 AM EDT Office Visit [facility] MEDICINE [address] [place] [address] documented as of this encounter Visit Diagnoses Diagnosis Gastroesophageal reflux disease without esophagitis Esophageal reflux documented in this encounter Additional Health Concerns Assessment Noted Time PHQ-9 Depression Total Score: 1 01/14/20 24 10:00 AM EDT documented as of this encounter Care Teams Fast Food Shift Lead Relationship Specialty Start Date End Date Bharati Soriano MD [address] [place] [address] PCP - General Family Medicine 06/14/18 Vasyl Boles MD [address] [place] [address] [place] [phone] Gastroenterology 06/20/24 Amador Green MD [address] [place] [address] Rheumatology 09/18/24 Babak Sparks MD [address] [facility] [address] [place] [address] Endocrinology 10/17/24 documented as of this encounter
--- OUTSIDE RECORDS SUMMARY | 2025-02-20 16:10 | XMS_ITS | Encounter Summary ---
Author Organization [employer] Address [address] [place] [address] 7t [place] [address] Care Team Providers Care Osteopathic Neurologist Name Role Phone Bharati Soriano MD Primary Care Provider [phone] Vasyl Boles MD Unavailable [phone] Amador Green MD Unavailable Babak Sparks MD Unavailable Encounter Details Date Type Department Care Team (Late st Contact Info) Description 08/11/2022 Abstract [facility] MEDICINE [address] [place] [address] [phone] Bharati Soriano MD [address] [place] [address] [phone] Social History Tobacco Use Types Packs/Day Years [...] Description 03/14/2025 12:45 PM EDT Office Visit [facility] ADULT DENTAL 230 [place], [place] [phone] Elo Mahoney 230 [place] [address] 03/27/2025 11:00 AM EDT Office Visit [facility] MED[facility]INE 230 [place] [address] documented as of this encounter Procedures Procedure Name Priority Date/Time Associated Diagnosis Comments PAP SMEAR Routine 03/14/2015 12:00 AM EDT documented in this encounter Results * Pap Smear (03/14/2015 12:00 AM EDT) Swab us Historical Provider LAB CYTOLOGY ORDERABLES F inal Result IMAGING documented in this encounter Visit Diagnoses Not on filedocumented in this encounter Care Teams Osteopathic Neurologist Relationship Specialty Start Date End Date Bharati Soriano MD [address] [place] [address] PCP - General Family Medicine 06/14/18 Vasyl Boles MD [address] [place] [address] [address] [place] [address] Gastroenterology 06/20/24 Amador Green MD [address] [place] [address] Rheumatology 09/18/24 Babak Sparks MD [address] [place] [address] Drive [address] [place] [address] Endocrinology 10/17/24 documented as of this encounter
--- OUTSIDE RECORDS SUMMARY | 2025-02-20 16:10 | XMS_ITS | Encounter Summary ---
Author Organization [employer] Address [address] [facility] 7t [place] [address] Care Team Providers Care Emergency Vehicle Dispatcher Name Role Phone Bharati Soriano MD Primary Care Provider [phone] Vasyl Boles MD Unavailable Amador Green MD Unavailable Babak Sparks MD Unavailable [phone] Reason for Visit * Reason Onset Date Comments Call Back Request 10/25/2023 Encounter Details Date Type Department Care Team (Late st Contact Info) Description 10/25/2023 Telephone [facility] MED[facility] [address] [place], [place] [phone] Bharati Soriano MD [address] [place], [place] [phone] Call Back Request Social History Tobacco Use [...] of every month. Please contact pt at [phone] documented in this encounter Plan of Treatment Upcoming Encounters Date Type Department Care Team (Late st Contact Info) Description 03/14/2025 12:45 PM EDT Office Visit [facility] ADULT DENTAL 230 [place], [place] [phone] Elo Mahoney 230 [place] [address] 03/27/2025 11:00 AM EDT Office Visit [facility] MED[facility] [address] [place] [address] documented as of this encounter Visit Diagnoses Not on filedocumented in this encounter Additional Health Concerns Assessment Noted Time PHQ-9 Depression Total Score: 0 05/04/20 23 2:27 PM EDT documented as of this encounter Care Teams Emergency Vehicle Dispatcher Relationship Specialty Start Date End Date Bharati Soriano MD 230 [place] [address] PCP - General Family Medicine 06/14/18 Vasyl Boles MD [address] [place] [address] [address] [place] [address] Gastroenterology 06/20/24 [place] [address] [place] [address] Rheumatology 09/18/24 Babak Sparks MD [address] [place] [address] Drive [address] [place] [address] Endocrinology 10/17/24 documented as of this encounter
--- OUTSIDE RECORDS SUMMARY | 2025-02-20 16:10 | XMS_ITS | Encounter Summary ---
Author Organization [employer] Address [address] [facility] 7t [place] [address] Care Team Providers Care Copyright Clerk Name Role Phone Bharati Soriano MD Primary Care Provider + [phone] Vasyl Boles MD Unavailable [phone] Amador Green MD Unavailable [phone] Babak Sparks MD Unavailable [phone] Encounter Details Date Type Department Care Team (Latest Contact Info) Description 03/26/2021 Abstract [facility] CONVERSIONS Dental, Provider, DDS Social History [...] Description 03/14/2025 12:45 PM EDT Office Visit [facility] ADULT DENTAL 230 [place], [place] [phone] Denzel Elo 230 [place] [address] 03/27/2025 11:00 AM EDT Office Visit [facility] MEDICINE 230 [place], [place] [phone] documented as of this encounter Visit Diagnoses Not on filedocumented in this encounter Care Teams Copyright Clerk Relationship Specialty Start Date End Date Bharati Soriano MD 230 [place] [address] PCP - General Family Medicine 06/14/18 Vasyl Boles MD [address] [place] [address] [address] [place] [address] Gastroenterology 06/20/24 Amador Green MD [address] [place] [address] Rheumatology 09/18/24 Babak Sparks MD [address] [place] [address] Drive [address] [place] [address] Endocrinology 10/17/24 documented as of this encounter
--- OUTSIDE RECORDS SUMMARY | 2025-02-20 16:10 | XMS_ITS | Patient Health Record ---
Author Organization [facility] Address [address] [place] [address] Care Team Providers Care Gse Mechanic Name Role Phone Bharati Soriano MD [...] Problem Status W/U Status Risk Notes Problem 522744055 Colon cancer screening (Z12.11) Active confirmed Problem 628251917 Radiation procti tis (K62.7) Active confirmed Problem 024847387 Gastroesophageal reflux disease without esophagitis (K21.9) Active confirmed Problem History of malignant neoplasm of rectum (830332834) 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) Active confirmed Problem 54164818 Incontinence of feces, unspecified fecal incontinence type (R15.9) Active confirmed Plan Of Treatment Future Test Test Name Order Date COLONOSCOPY 07/14/2018 COLONOSCOPY 12/25/2021 Insurance Providers Payer Name Payer Address Payer Phone Subscriber Number Group Number Insured Name Patient Relationship to Insured Coverage Start Date Coverage End Date MEDICARE OF [place] [address] [place] [id number] PATT RENDON Self - patient is the insured MEDICAID OF [facility] [address] [place] [address] [id number] PATT RENDON Self - patient is the insured Medical (General) History Medical History History ICD Code hypertension 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
--- OUTSIDE RECORDS SUMMARY | 2025-02-20 16:10 | XMS_ITS | Encounter Summary ---
Author Organization [employer] Address [address] [facility] 7t [place] [address] Care Team Providers Care Shanker Out Name Role Phone Bharati Soriano MD Primary Care Provider [phone]- [phone] Vasyl Boles MD Unavailable Amador Green MD Unavailable Babak Sparks MD Unavailable [phone] Encounter Details Date Type Department Care Team (Late st Contact Info) Description 08/01/2024 Orders Only [facility] MEDICINE 230 [place], [place] [phone] Rosi Vergara MD 230 [place], [place] [phone] Primary hypertension; Chronic renal impairment, stage 2 [...] Description 03/14/2025 12:45 PM EDT Office Visit [facility] ADULT DENTAL [address] [place] [address] Al Mahoneyaris 230 [place] [address] 03/27/2025 11:00 AM EDT Office Visit [facility] MED[facility] [address] [place] [address] documented as of this encounter Visit Diagnoses Diagnosis Primary hypertension Unspecified essential hypertension Chronic renal impairment, stage 2 (mild) documented in this encounter Additional Health Concerns Assessment Noted Time PHQ-9 Depression Total Score: 1 01/14/20 24 10:00 AM EDT documented as of this encounter Care Teams Shanker Out Relationship Specialty Start Date End Date Bharati Soriano MD [address] [place] [address] PCP - General Family Medicine 06/14/18 Vasyl Boles MD [address] [place] [address] [place] [phone] Gastroenterology 06/20/24 Amador Green MD [address] [place] [address] Rheumatology 09/18/24 Babak Sparks MD [address] [facility] [address] [place] [address] Endocrinology 10/17/24 documented as of this encounter
--- OUTSIDE RECORDS SUMMARY | 2025-02-20 16:11 | XMS_ITS | Encounter Summary ---
Author Organization [employer] Address [address] [facility] 7t [place] [address] Care Team Providers Care Plastic Tool Maker Name Role Phone Bharati Soriano MD Primary Care Provider [phone]- [phone] Vasyl Boles MD Unavailable Amador Green MD Unavailable Babak Sparks MD Unavailable [phone] Reason for Visit * Reason Onset Date Comments Med Refill 06/01/2023 Encounter Details Date Type Department Care Team (Late st Contact Info) Description 06/01/2023 Telephone [facility] MEDICINE [address] [place], [place] [phone] Bharati Soriano MD 230 [place], [place] [phone] Med Refill Social History Tobacco Use Types [...] Description 03/14/2025 12:45 PM EDT Office Visit [facility] ADULT DENTAL [address] [place] [address] Denzel, Elo [address] [place] [address] 03/27/2025 11:00 AM EDT Office Visit [facility] MEDICINE [address] [place] [address] documented as of this encounter Visit Diagnoses Not on filedocumented in this encounter Additional Health Concerns Assessment Noted Time PHQ-9 Depression Total Score: 0 10/16/19 23 2:27 PM EDT documented as of this encounter Care Teams Plastic Tool Maker Relationship Specialty Start Date End Date Bharati Soriano MD 230 [place] [address] PCP - General Family Medicine 06/14/18 Vasyl Boles MD [address] [place] [address] [address] [place] [address] Gastroenterology 06/20/24 Amador Green MD [address] [place] [address] Rheumatology 09/18/24 Babak Sparks MD [address] [place] [address] Drive [address] [place] [address] Endocrinology 10/17/24 documented as of this encounter
--- OUTSIDE RECORDS SUMMARY | 2025-02-20 16:11 | XMS_ITS | Encounter Summary ---
Author Organization [employer] Address 75 [facility] 7t [place] [address] Care Team Providers Care Binder Operator Name Role Phone Bharati Soriano MD Primary Care Provider +[phone]- [phone] Vasyl Boles MD Unavailable Amador Green MD Unavailable [phone] Babak Sparks MD Unavailable [phone] Reason for Visit * Reason Comments Med Refill Encounter Details Date Type Department Care Team (Late st Contact Info) Description 02/05/2025 Refill [facility] MED[facility]INE [address] [place], [place] [phone] Bharati Soriano MD 230 [place], [place] [phone] Primary hypertension; Chronic renal impairment, stage 2 [...] Description 03/14/2025 12:45 PM EDT Office Visit [facility] ADULT DENTAL [address] [place] [address] Al Mahoneyaris [address] [place] [address] 03/27/2025 11:00 AM EDT Office Visit [facility] MEDICINE [address] [place] [address] documented as of this encounter Visit Diagnoses Diagnosis Primary hypertension Unspecified essential hypertension Chronic renal impairment, stage 2 (mild) documented in this encounter Additional Health Concerns Assessment Noted Time PHQ-9 Depression Total Score: 0 12/07/19 25 11:15 AM EDT documented as of this encounter Care Teams Binder Operator Relationship Specialty Start Date End Date Bharati Soriano MD [address] [place] [address] PCP - General Family Medicine 06/14/18 Vasyl Boles MD [address] [place] [address] [place] [phone] Gastroenterology 06/20/24 Amador Green MD [address] [place] [address] Rheumatology 09/18/24 Babak Sparks MD [address] [place] [address] Endocrinology 10/17/24 documented as of this encounter
--- OUTSIDE RECORDS SUMMARY | 2025-02-20 16:11 | XMS_ITS | Encounter Summary ---
Author Organization [employer] Address [address] [facility] 7t [place] [address] Care Team Providers Care Lube Technician Name Role Phone Bharati Soriano MD Primary Care Provider + [phone] Vasyl Boles MD Unavailable [phone] Amador Green MD Unavailable [phone] Babak Sparks MD Unavailable [phone] Encounter Details Date Type Department Care Team (Latest Contact Info) Description 06/29/2018 Abstract [facility] CONVERSIONS Dental, Provider, DDS Social [...] [facility] 230 [place], [place] [phone] Denzel, Elo 230 [place], [place] [phone] 03/27/2025 11:00 AM EDT Office Visit [facility] MEDICINE 230 [place], [place] [phone] documented as of this encounter Visit Diagnoses Not on filedocumented in this encounter Care Teams Lube Technician Relationship Specialty Start Date End Date Bharati Soriano MD 230 [place] [address] PCP - General Family Medicine 06/14/18 Vasyl Boles MD [address] [place] [address] [address] [place] [address] Gastroenterology 06/20/24 [place] [address] [place] [address] Rheumatology 09/18/24 Babak Sparks MD [address] [place] [address] Drive [address] [place] [address] Endocrinology 10/17/24 documented as of this encounter
--- OUTSIDE RECORDS SUMMARY | 2025-02-20 16:11 | XMS_ITS | Encounter Summary ---
Author Organization [employer] Address 75 [facility] 7t [place] [address] Care Team Providers Care Vc++ Developer Name Role Phone Bharati Soriano MD Primary Care Provider [phone]- [phone] Vasyl Boles MD Unavailable Amador Green MD Unavailable [phone] Babak Sparks MD Unavailable [phone] Reason for Visit * Reason Onset Date Comments Med Refill 05/03/2024 Encounter Details Date Type Department Care Team (Late st Contact Info) Description 05/03/2024 Telephone [facility] MEDICINE 230 [place], [place] [phone] Bharati Soriano MD 230 [place], [place] [phone] Med Refill Social History Tobacco Use Types [...] 5-325 MG tablet To be sent to: [facility]/pharmacy #[id number] [place] [address] documented in this encounter Plan of Treatment Upcoming Encounters Date Type Department Care Team (Late st Contact Info) Description 03/14/2025 12:45 PM EDT Office Visit [facility] ADULT DENTAL 230 [place], [place] [phone] Denzel, Elo 230 [place] [address] 03/27/2025 11:00 AM EDT Office Visit [facility] MEDICINE 230 [place] [address] documented as of this encounter Visit Diagnoses Not on filedocumented in this encounter Additional Health Concerns Assessment Noted Time PHQ-9 Depression Total Score: 1 01/14/20 24 10:00 AM EDT documented as of this encounter Care Teams Vc++ Developer Relationship Specialty Start Date End Date Bharati Soriano MD 230 [place] [address] PCP - General Family Medicine 06/14/18 Vasyl Boles MD [address] [place] [address] [address] [place] [address] Gastroenterology 06/20/24 Amador Green MD [address] [place] [address] Rheumatology 09/18/24 Babak Sparks MD [address] [place] [address] Drive [address] [place] [address] Endocrinology 10/17/24 documented as of this encounter
--- OUTSIDE RECORDS SUMMARY | 2025-02-20 16:11 | XMS_ITS | Encounter Summary ---
Author Organization [employer] Address 75 [facility] 7t [place] [address] Care Team Providers Care Airframe And Powerplant Technician Name Role Phone Bharati Soriano MD Primary Care Provider [phone]- [phone] Vasyl Boles MD Unavailable [phone] Amador Green MD Unavailable [phone] Babak Sparks MD Unavailable [phone] Reason for Visit * Reason Comments Med Refill Encounter Details Date Type Department Care Team (Late st Contact Info) Description 06/18/2023 Refill [facility] MEDICINE 230 [place], [place] [phone] Bharati Soriano MD 230 [place], [place] [phone] Dyslipidemia; Acquired hypothyroidism Social History Tobacco Use [...] Description 03/14/2025 12:45 PM EDT Office Visit [facility] ADULT DENTAL 230 [place] [address] Denzel, Elo 230 [place] [address] 03/27/2025 11:00 AM EDT Office Visit [facility] MEDICINE 230 [place] [address] documented as of this encounter Visit Diagnoses Diagnosis Dyslipidemia Other and unspecified hyperlipidemia Acquired hypothyroidism Unspecified hypothyroidism documented in this encounter Additional Health Concerns Assessment Noted Time PHQ-9 Depression Total Score: 0 10/16/19 23 2:27 PM EDT documented as of this encounter Care Teams Airframe And Powerplant Technician Relationship Specialty Start Date End Date Bharati Soriano MD 230 [place] [address] PCP - General Family Medicine 06/14/18 Vasyl Boles MD [address] [place] [address] [place] [phone] Gastroenterology 06/20/24 Amador Green MD [address] [place] [address] Rheumatology 09/18/24 Babak Sparks MD [address] [place] [address] Endocrinology 10/17/24 documented as of this encounter
--- OUTSIDE RECORDS SUMMARY | 2025-02-20 16:11 | XMS_ITS | Encounter Summary ---
Author Organization [employer] Address 75 [facility] 7t [place] [address] Care Team Providers Care Dye Box Operator Name Role Phone Bharati Soriano MD Primary Care Provider [phone]- [phone] Vasyl Boles MD Unavailable [phone] Amador Green MD Unavailable [phone] Babak Sparks MD Unavailable Reason for Visit * Reason Onset Date Comments Med Refill 02/01/2024 Encounter Details Date Type Department Care Team (Late st Contact Info) Description 02/01/2024 Telephone [facility] MEDICINE [address] [place], [place] [phone] Bharati Soriano MD 230 [place], [place] [phone] Med Refill Social History Tobacco Use Types [...] 5-325 MG tablet To be sent to: [facility]/pharmacy #[address] [place] [address] documented in this encounter Plan of Treatment Upcoming Encounters Date Type Department Care Team (Late st Contact Info) Description 03/14/2025 12:45 PM EDT Office Visit [facility] ADULT DENTAL [address] [place] [address] Denzel, Elo 230 [place] [address] 03/27/2025 11:00 AM EDT Office Visit [facility] MEDICINE [address] [place] [address] documented as of this encounter Visit Diagnoses Not on filedocumented in this encounter Additional Health Concerns Assessment Noted Time PHQ-9 Depression Total Score: 1 01/14/20 24 10:00 AM EDT documented as of this encounter Care Teams Dye Box Operator Relationship Specialty Start Date End Date Bharati Soriano MD [address] [place] [address] PCP - General Family Medicine 06/14/18 Vasyl Boles MD [address] [place] [address] [address] [place] [address] Gastroenterology 06/20/24 [place] [address] [place] [address] Rheumatology 09/18/24 Babak Sparks MD [address] [place] [address] Drive [address] [place] [address] Endocrinology 10/17/24 documented as of this encounter
--- OUTSIDE RECORDS SUMMARY | 2025-02-20 16:11 | XMS_ITS | Clinical Summary ---
Author Organization [facility] Address [address] [place] [address] Phone Care Team Providers Care Provider Enrollment Specialist Name Role Phone Bharati Soriano MD Primary Care Provi manuel Medications hydroxychloroqu ine (PLAQUENIL) 200 mg tablet Take 200 mg by mouth daily. Active amLODIPine (NORVASC) 2.5 MG tablet Take 2.5 mg by mouth daily. Active loperamide (IMODIUM A-D) 2 mg tablet Take 2 mg by mouth 4 (four) times a day as needed for diarrhea. Active docusate sodium (COLACE) 100 MG capsule Take 100 mg by mouth 2 (two) times a day. Active acetaminophen (TYLENOL) 500 MG tablet Take 500 mg by mouth every 6 (six) hours as needed for pain (specific location in comments). Active alendronate (FOSAMAX) 70 MG tablet Take 70 mg by mouth every 7 days. Take in the morning with a full glass of water, on an empty stomach, and do not take anything else by mouth or lie down for the next 30 min. Active omeprazole (PRILOSEC) 20 MG capsule Take 20 mg by mouth daily. Active albuterol 90 mcg/actuation inhaler Inhale 2 puffs into the lungs every 6 (six) hours as needed for wheezing. Active pravastatin (PRAVACHOL) 20 MG tablet Take 20 mg by mouth daily. Active clonazePAM (KLONOPIN) 0.5 MG tablet Take 0.5 mg by mouth 2 (two) times a day as needed for anxiety. Active levothyroxine (SYNTHROID,LEVO THROID) 25 MCG tablet Take 25 mcg by mouth every morning. Active losartan (COZAAR) 25 MG tablet Take 25 mg by mouth daily. Active traZODone (DESYREL) 100 MG tablet Take 100 mg by mouth nightly at bedtime. Active oxyCODONE-aceta minophen (PERCOCET) 5-325 mg per tablet Take 1 tablet by mouth every 4 (four) hours as needed for pain (specific location in comments). {PARTIAL FILL:46488} Active albuterol 90 mcg/actuation inhaler Inhale 2 puffs into the lungs every 6 (six) hours as needed for wheezing. Active Family History Relation Status Comments Father Mother Social History Tobacco Use Types Packs/Day Years Used Date Smoking Tobacco: Never Smokeless Tobacco: Never Alcohol Use Standard Drinks/Week Comments Yes 0 (1 standard drink = 0.6 oz pur e alcohol) 1-2/week on weekends Education Answer Date Recorded Are you interested in more education? Not on cesar e 10/09/2022 Are you concerned about learning? Not on file 10/09/2022 No 10/09/2022 No 10/09/2022 Digital Access Answer Date Recorded No 11/07/2022 No 11/07/2022 Reliable internet access at home? Not on file 11/07/2022 Device with a working camera? Not on file Comments Unknown Sex and Gender Information Value Date Recorded Sex Assigned at Not on file Legal Sex Female 10:36 PM EDT Gender Identity Not on file Sexual Orientation Not on file Last Filed Vital Signs Vital Sign Reading Time Taken Comments Blood Pressure 117/77 04/12/2019 1:34 PM EDT Pulse 100 04/12/2019 1:34 PM EDT Temperature - - Respiratory Rate - - Oxygen Saturation - - Inhaled Oxygen Concentration - - Weight 58.5 kg (129 lb) 04/12/2019 1:34 PM EDT Height 152.4 cm (5') 04/12/2019 1:34 PM EDT Body Mass Index 25.19 04/12/2019 1:34 PM EDT Plan of Treatment Health Maintenance Due Date Last Done Comments CREATININE LEVEL 1955 LIPID PANEL 1953 POTASSIUM LEVEL 1955 TSH LEVEL 1955 DEPRESSION SCREENING 1965 HEPATITIS C SCREENING 11/30/1971 MAMMOGRAM 1993 COLOGUARD 1998 COLONOSCOPY 1998 COLORECTAL CANCER SCREENING 1998 FIT TEST 1998 FOBT 1998 SIGMOIDOSCOPY 1998 VIRTUAL COLONOSCOPY 1998 OSTEOPOROSIS SCREENING INITIAL (ONE-TIME) 2018 Adult Td,Tdap Booster 04/04/2022 04/04/2012, 001 INFLUENZA VACCINE (#1) 2025 , 03/14/2019, 04/05/2018, Additional history exists COVID-19 VACCINE (2024- season) 2025 05/01/2021, 10/02/2020, 09/04/2020 RSV VACCINE (1 - 1-dose 75+ series) 2028 HEPATITIS A VACCINES Aged Out 07/28/2018 No long er eligible based on patient's age to complete this topic SMOKING STATUS SCREENING (Once After 26 Yrs) Completed 04/12/2019 PNEUMOCOCCAL VACCINES (50+ years) Completed 05/01/2020, 05/01/2020, 07/28/2018 ZOSTER VACCINES Completed 09/03/2021, 02/13, 07/25/2014 HIB VACCINES Aged Out No longer eligi ble based on patient's age to complete this topic MENINGOCOCCAL VACCINES (ACWY) Aged Out No longer eligible based on patient's age to complete this topic MENINGOCOCCAL VACCINES (B) Aged Out N o longer eligible based on patient's age to complete this topic Medical Devices Not on file Insurance MEDICARE PART A & [place] & B HEALTH MEDICARE PART A & B [place]ALTH MEDICARE PART A & [place] PART A & [facility] * Guarantor: Felipa Finkertad Account Type Relation to Patient Date of Phone Billing Address Personal/Family Self 1955 [address] [facility] [place] [address] MEDICARE PART A & B [facility] Care Teams Provider Enrollment Specialist Relationship Specialty Start Date End Date Christie, Bharati Spann MD 230 [place] [address] PCP - General Family Medicine 01/02/19 Additional Source Comments The information contained in this document represents components of the legal health record. It is not the complete legal health record.[facility]
--- OUTSIDE RECORDS SUMMARY | 2025-02-20 16:11 | XMS_ITS | Encounter Summary ---
Author Organization [employer] Address 75 [facility] 7t [place] [address] Care Team Providers Care Battery Charger Name Role Phone Bharati Soriano MD Primary Care Provider [phone] Vasyl Boles MD Unavailable [phone] Amador Green MD Unavailable Babak Sparks MD Unavailable Reason for Visit * Reason Onset Date Comments Med Refill 01/31/2025 Encounter Details Date Type Department Care Team (Late st Contact Info) Description 01/31/2025 Telephone [facility] MEDICINE 230 [place], [place] [phone] Bharati Soriano MD 230 [place], [place] [phone] Med Refill Social History Tobacco Use Types [...] encounter Miscellaneous Notes * Telephone Encounter - Stephen Leone - 01/31/2025 2:17 PM EDT TC from pt requesting medication refill. Medications needing refill : oxyCODONE-acetaminophen (Percocet) 5-325 MG tablet To be sent to: [facility]/pharmacy #[address] [place] [address] documented in this encounter Plan of Treatment Upcoming Encounters Date Type Department Care Team (Late st Contact Info) Description 03/14/2025 12:45 PM EDT Office Visit [facility] ADULT DENTAL 230 [place], [place] [phone] Elo Mahoney [address] [place] [address] 03/27/2025 11:00 AM EDT Office Visit [facility] MEDICINE 230 [place] [address] documented as of this encounter Visit Diagnoses Not on filedocumented in this encounter Additional Health Concerns Assessment Noted Time PHQ-9 Depression Total Score: 0 12/07/19 25 11:15 AM EDT documented as of this encounter Care Teams Battery Charger Relationship Specialty Start Date End Date Bharati Soriano MD 230 [place] [address] PCP - General Family Medicine 06/14/18 Vasyl Bloes MD [address] [place] [address] [address] [place] [address] Gastroenterology 06/20/24 Amador Green MD [address] [place] [address] Rheumatology 09/18/24 Babak Sparks MD [address] [place] [address] Drive [address] [place] [address] Endocrinology 10/17/24 documented as of this encounter
--- OUTSIDE RECORDS SUMMARY | 2025-02-20 16:11 | XMS_ITS | Encounter Summary ---
Author Organization [employer] Address [address] 7t [place] [address] Care Team Providers Care Manager Semiconductor Name Role Phone Bharati Soriano MD Primary Care Provider [phone]- [phone] Vasyl Boles MD Unavailable Amador Green MD Unavailable [phone] Babak Sparks MD Unavailable Encounter Details Date Type Department Care Team (Latest Contact Info) Description 02/20/2025 Travel Social History Tobacco Use Types Packs/Day [...] Description 03/14/2025 12:45 PM EDT Office Visit [facility] ADULT DENTAL [address] [place] [address] Denzel Elo [address] [place] [address] 03/27/2025 11:00 AM EDT Office Visit [facility] MEDICINE 230 [place] [address] documented as of this encounter Visit Diagnoses Not on filedocumented in this encounter Additional Health Concerns Assessment Noted Time PHQ-9 Depression Total Score: 0 12/07/19 25 11:15 AM EDT documented as of this encounter Care Teams Manager Semiconductor Relationship Specialty Start Date End Date Bharati Soriano MD 230 [place] [address] PCP - General Family Medicine 06/14/18 Vasyl Boles MD [address] [place] [address] [address] [place] [phone] Gastroenterology 06/20/24 [place] [address] [place] [address] Rheumatology 09/18/24 Babak Sparks MD [address] [place] [address] Drive [address] [place] [address] Endocrinology 10/17/24 documented as of this encounter
--- OUTSIDE RECORDS SUMMARY | 2025-02-20 16:11 | XMS_ITS | Encounter Summary ---
Author Organization [employer] Address [address] [facility] 7t [place] [address] Care Team Providers Care Felled Seam Operator Chainstitch Name Role Phone Bharati Soriano MD Primary Care Provider + [phone] Vasyl Boles MD Unavailable [phone] Amador Green MD Unavailable [phone] Babak Sparks MD Unavailable [phone] Encounter Details Date Type Department Care Team (Latest Contact Info) Description 08/23/2019 Abstract [facility] CONVERSIONS Dental, Provider, DDS Social History [...] Description 03/14/2025 12:45 PM EDT Office Visit [facility] ADULT DENTAL 230 [place], [place] [phone] Denzel, Elo 230 [place], [place] [phone] 03/27/2025 11:00 AM EDT Office Visit [facility] MEDICINE 230 [place], [place] [phone] documented as of this encounter Visit Diagnoses Not on filedocumented in this encounter Care Teams Felled Seam Operator Chainstitch Relationship Specialty Start Date End Date Bharati Soriano MD 230 [place] [address] PCP - General Family Medicine 06/14/18 Vasyl Boles MD [address] [place] [address] [address] [place] [address] Gastroenterology 06/20/24 [place] [address] [place] [phone] Rheumatology 09/18/24 Babak Sparks MD [address] [place] [address] Drive [address] [place] [address] Endocrinology 10/17/24 documented as of this encounter
--- OUTSIDE RECORDS SUMMARY | 2025-02-20 16:11 | XMS_ITS | Encounter Summary ---
Author Organization [employer] Address 75 [facility] 7t [place] [address] Care Team Providers Care Supervisor Porcelain Department Name Role Phone Bharati Soriano MD Primary Care Provider [phone]- [phone] Vasyl Boles MD Unavailable Amador Green MD Unavailable Babak Sparks MD Unavailable [phone] Reason for Visit * Reason Comments Med Refill Encounter Details Date Type Department Care Team (Late st Contact Info) Description 07/02/2023 Refill [facility] [address] [place], [place] [phone] Bharati Soriano MD 230 [place], [place] [phone] Social History Tobacco Use Types Packs/Day Years [...] Description 03/14/2025 12:45 PM EDT Office Visit [facility] ADULT DENTAL [address] [place] [address] Denzel Elo [address] [place] [address] 03/27/2025 11:00 AM EDT Office Visit [facility] [address] [place] [address] documented as of this encounter Visit Diagnoses Not on filedocumented in this encounter Additional Health Concerns Assessment Noted Time PHQ-9 Depression Total Score: 0 10/16/19 23 2:27 PM EDT documented as of this encounter Care Teams Supervisor Porcelain Department Relationship Specialty Start Date End Date Bharati Soriano MD [address] [place] [address] PCP - General Family Medicine 06/14/18 Vasyl Boles MD [address] [place] [phone] Gastroenterology 06/20/24 Amador Green MD [address] [place] [address] Rheumatology 09/18/24 Babak Sparks MD [facility] [address] [place] [address] Endocrinology 10/17/24 documented as of this encounter
--- OUTSIDE RECORDS SUMMARY | 2025-02-20 16:11 | XMS_ITS | Encounter Summary ---
Author Organization [employer] Address [address] 7t [place] [address] Care Team Providers Care Health Companion Name Role Phone Bharati Soriano MD Primary Care Provider +[phone]- [phone] Vasyl Boles MD Unavailable [phone] Amador Green MD Unavailable [phone] Babak Sparks MD Unavailable [phone] Encounter Details Date Type Department Care Team (Late st Contact Info) Description 01/04/2024 Orders Only [facility] MEDICINE [address] [place], [place] [phone] Hortencia Beard, JÚNIOR [address] [place] [address] Pain Social History Tobacco Use Types Packs/Day [...] 03/14/2025 12:45 PM EDT Office Visit [facility] ADULT DENTAL [address] [place] [address] Denzel, Elo [address] [place] [address] 03/27/2025 11:00 AM EDT Office Visit [facility] MEDICINE [address] [place] [address] documented as of this encounter Procedures Procedure Name Priority Date/Time Associated Diagnosis Comments DRUG MONITORING, BENZODIAZEPINES, QUANTITATIVE, URINE Routine 01/04/2024 11:23 AM EDT Pain documented in this encounter Results * Drug Monitoring, Benzodiazepines, Quantitative, Urine (01/04/2024 11:23 AM EDT) Nordiazepam, GCMS Urine NEGATIVE [facility] Oxazepam, GCMS Urine NEGATIVE [facility] Lorazepam GCMS Urine NEGATIVE [facility] Alprazolam, GCMS Urine NEGATIVE [facility] Alphahydroxytriazolam, GCMS Ur NEGATIVE [facility] Temazepam, GCMS Urine NEGATIVE [facility] Alphahydroxymidazolam,GC MS Ur NEGATIVE [facility] Aminoclonazepam, GCMS Urine NEGATIVE [facility] Flurazepam Metabolite,GCMS Ur NEGATIVE [facility] Benzodiazepines Comments SEE NOTE [facility] Comment:This drug testing is for medical treatment only.Analysis was performed as non-forensic testing andthese results should be used only by healthcareproviders to render diagnosis or treatment, or tomonitor progress of medical conditions.LDT Notes:Confirmation tests were developed and their analyticalperformance characteristics have been determined by[facility]. It has not been cleared or approvedby the FDA. This assay has been validated pursuant tothe CLIA regulations and is used for clinical purposes.Healthcare Providers needing Interpretation assistance,please contact us at [phone] ( )M-F, 8am to 10pm ESTTHIS TEST PERFORMED AT:[facility] [place] [phone] DIRECTOR: VAUGHN BAUTISTA MD 01/04/2024 11:2 3 AM EDT 01/04/2024 1:53 PM EDT us Mily Alfredo SENIOR BUSINESS MANAGER LAB URINE ORDERABLES Final Res ult [facility] [address] [place] [address] [phone] documented in this encounter Visit Diagnoses Diagnosis Pain Generalized pain documented in this encounter Additional Health Concerns Assessment Noted Time PHQ-9 Depression Total Score: 2 12/22/19 24 2:00 PM EDT documented as of this encounter Care Teams Health Companion Relationship Specialty Start Date End Date Bharati Soriano MD 230 [place] [address] PCP - General Family Medicine 06/14/18 Vasyl Boles MD [address] [place] [address] [address] [place] [address] Gastroenterology 06/20/24 [place] [address] [place] [address] Rheumatology 09/18/24 Babak Sparks MD [address] [place] [address] Endocrinology 10/17/24 documented as of this encounter
--- OUTSIDE RECORDS SUMMARY | 2025-02-20 16:11 | XMS_ITS | Encounter Summary ---
Author Organization [employer] Address [address] [facility] 7t [place] [address] Care Team Providers Care Disc Pad Knockout Worker Name Role Phone Bharati Soriano MD Primary Care Provider [phone] Vasyl Boles MD Unavailable [phone] Amador Green MD Unavailable Babak Sparks MD Unavailable [phone] Encounter Details Date Type Department Care Team (Late st Contact Info) Description 05/30/2024 Telephone [facility] MEDICINE [address] [place], [place] [phone] Bharati Soriano MD [address] [place], [place] [phone] Social History Tobacco Use Types Packs/Day Years [...] Description 03/14/2025 12:45 PM EDT Office Visit [facility] ADULT DENTAL 230 [place] [address] Denzel, Elo [address] [place] [address] 03/27/2025 11:00 AM EDT Office Visit [facility] MEDICINE [address] [place] [address] documented as of this encounter Visit Diagnoses Not on filedocumented in this encounter Additional Health Concerns Assessment Noted Time PHQ-9 Depression Total Score: 1 01/14/20 24 10:00 AM EDT documented as of this encounter Care Teams Disc Pad Knockout Worker Relationship Specialty Start Date End Date Bharati Soriano MD 230 [place] [address] PCP - General Family Medicine 06/14/18 Vasyl Boles MD [address] [place] [phone] Gastroenterology 06/20/24 Amador Green MD [facility] [place] [address] Rheumatology 09/18/24 Babak Sparks MD [address] [place] [address] [place] [address] Endocrinology 10/17/24 documented as of this encounter
--- OUTSIDE RECORDS SUMMARY | 2025-02-20 16:11 | XMS_ITS | Encounter Summary ---
Author Organization [employer] Address [address] [facility] 7t [place] [address] Care Team Providers Care Forms Analysis Manager Name Role Phone Bharati Soriano MD Primary Care Provider [phone] Vasyl Boles MD Unavailable [phone] Amador Green MD Unavailable [phone] Babak Sparks MD Unavailable [phone] Reason for Visit * Reason Onset Date Comments Abormal UTOX results 02/20/2025 Encounter Details Date Type Department Care Team (Late st Contact Info) Description 02/20/2025 Telephone [facility] MEDICINE 230 [place] [address] Lety Ricks RN Abormal UTOX results Social History Tobacco Use Types Packs/Day Years [...] encounter Miscellaneous Notes * Telephone Encounter - Lety Ricks RN - 02/20/2025 11:38 AM EDT Pt attended chronic pain group today. UTOX was Pos FENT, BZO, OXY & THC. Urine sent out for BZO & FENT confirmation. documented in this encounter Plan of Treatment Upcoming Encounters Date Type Department Care Team (Late st Contact Info) Description 03/14/2025 12:45 PM EDT Office Visit [facility] ADULT DENTAL [address] [place] [address] Denzel Elo [address] [place] [address] 03/27/2025 11:00 AM EDT Office Visit [facility] MEDICINE [address] [place] [address] documented as of this encounter Visit Diagnoses Not on filedocumented in this encounter Additional Health Concerns Assessment Noted Time PHQ-9 Depression Total Score: 0 12/07/19 11:15 AM EDT documented as of this encounter Care Teams Forms Analysis Manager Relationship Specialty Start Date End Date Bharati Soriano MD 230 [place] [address] PCP - General Family Medicine 06/14/18 Vasyl Boles MD [address] [place] [address] [address] [place] [phone] Gastroenterology 06/20/24 Amador Green MD [address] [place] [address] Rheumatology 09/18/24 Babak Sparks MD [address] [place] [address] Drive [address] [place] [address] Endocrinology 10/17/24 documented as of this encounter
--- OUTSIDE RECORDS SUMMARY | 2025-02-20 16:11 | XMS_ITS | Encounter Summary ---
Author Organization [employer] Address [address] [facility] 7t [place] [address] Care Team Providers Care Crossbar Switch Adjuster Name Role Phone Bharati Soriano MD Primary Care Provider [phone] Vasyl Boles MD Unavailable Amador Green MD Unavailable Babak Sparks MD Unavailable [phone] Reason for Visit * Reason Onset Date Comments Med Refill 05/03/2023 Encounter Details Date Type Department Care Team (Late st Contact Info) Description 05/03/2023 Telephone [facility] MEDICINE 230 [place], [place] [phone] Bharati Soriano MD [address] [place], [place] [phone] Med Refill Social History Tobacco Use Types [...] Description 03/14/2025 12:45 PM EDT Office Visit [facility] ADULT DENTAL 230 [place] [address] Denzel, Elo [address] [place] [address] 03/27/2025 11:00 AM EDT Office Visit [facility] MEDICINE [address] [place] [address] documented as of this encounter Visit Diagnoses Not on filedocumented in this encounter Additional Health Concerns Assessment Noted Time PHQ-9 Depression Total Score: 0 10/16/19 23 2:27 PM EDT documented as of this encounter Care Teams Crossbar Switch Adjuster Relationship Specialty Start Date End Date Bharati Soriano MD 230 [place] [address] PCP - General Family Medicine 06/14/18 Vasyl Boles MD [address] [place] [address] [address] [place] [address] Gastroenterology 06/20/24 Amador Green MD [address] [place] [address] Rheumatology 09/18/24 Babak Sparks MD [address] [place] [address] Drive [address] [place] [address] Endocrinology 10/17/24 documented as of this encounter
--- OUTSIDE RECORDS SUMMARY | 2025-02-20 16:11 | XMS_ITS | Encounter Summary ---
Author Organization [employer] Address [address] [facility] 7t [place] [address] Care Team Providers Care Gas Scrubber Operator Name Role Phone Bharati Soriano MD Primary Care Provider [phone] Vasyl Boles MD Unavailable Amador Green MD Unavailable [phone] Bbaak Sparks MD Unavailable [phone] Reason for Visit * Reason Comments Med Refill Encounter Details Date Type Department Care Team (Late st Contact Info) Description 05/10/2024 Refill [facility] MEDICINE [address] [place], [place] [phone] Bharati Soriano MD 230 [place], [place] [phone] Dyslipidemia; Other osteoporosis without current pathological fracture; [...] Description 03/14/2025 12:45 PM EDT Office Visit [facility] ADULT DENTAL [address] [place] [address] Al Mahoneyaris [address] [place] [address] 03/27/2025 11:00 AM EDT Office Visit [facility] MEDICINE [address] [place] [address] documented as of this encounter Visit Diagnoses Diagnosis Dyslipidemia Other and unspecified hyperlipidemia Other osteoporosis without current pathological fracture Mild intermittent asthma, unspecified whether complicated documented in this encounter Additional Health Concerns Assessment Noted Time PHQ-9 Depression Total Score: 1 01/14/20 24 10:00 AM EDT documented as of this encounter Care Teams Gas Scrubber Operator Relationship Specialty Start Date End Date Bharati Soriano MD [address] [place] [address] PCP - General Family Medicine 06/14/18 Vasyl Boles MD [address] [place] [address] [address] [place] [address] Gastroenterology 06/20/24 Amador Green MD [address] [place] [address] Rheumatology 09/18/24 Babak Sparks MD [address] [place] [address] Drive [address] [place] [address] Endocrinology 10/17/24 documented as of this encounter
--- OUTSIDE RECORDS SUMMARY | 2025-02-20 16:11 | XMS_ITS | Clinical Summary ---
Author Organization [facility] Address [address] [place] [address] Care Team Providers Care Drawing Box Tender Name Role Phone Bharati Soriano MD [...] Recently Relevant to Health Maintenance Care Teams Drawing Box Tender Relationship Specialty Start Date End Date [place], Bharati Knight MD PCP - General 06/24/20
--- OUTSIDE RECORDS SUMMARY | 2025-02-20 16:11 | XMS_ITS | Encounter Summary ---
Author Organization [employer] Address [address] [facility] 7t [place] [address] Care Team Providers Care Motion Picture Operator Name Role Phone Bharati Soriano MD Primary Care Provider [phone]- [phone] Vasyl Boles MD Unavailable [phone] Amador Green MD Unavailable Babak Sparks MD Unavailable [phone] Reason for Visit * Reason Onset Date Comments Med Refill 10/31/2024 Encounter Details Date Type Department Care Team (Late st Contact Info) Description 10/31/2024 Telephone [facility] MEDICINE 230 [place], [place] [phone] Bharati Soriano MD [address] [place], [place] [phone] Med Refill Social History Tobacco Use Types [...] encounter Miscellaneous Notes * Telephone Encounter - Kelehci Loyd - 10/31/2024 11:30 AM EDT TC from pt requesting medication refill. Medications needing refill: oxyCODONE-acetaminophen (Percocet) 5-325 MG tablet To be sent to: [facility]/pharmacy #[id number] [place] [address] documented in this encounter Plan of Treatment Upcoming Encounters Date Type Department Care Team (Late st Contact Info) Description 03/14/2025 12:45 PM EDT Office Visit [facility] ADULT DENTAL [address] [place] [address] Denzel, Elo [address] [place] [address] 03/27/2025 11:00 AM EDT Office Visit [facility] MEDICINE [address] [place] [address] documented as of this encounter Visit Diagnoses Not on filedocumented in this encounter Additional Health Concerns Assessment Noted Time PHQ-9 Depression Total Score: 1 01/14/20 24 10:00 AM EDT documented as of this encounter Care Teams Motion Picture Operator Relationship Specialty Start Date End Date Bharati Soriano MD [address] [place] [address] PCP - General Family Medicine 06/14/18 Vasyl Boles MD [address] [place] [address] [address] [place] [address] Gastroenterology 06/20/24 Amador Green MD [address] [place] [address] Rheumatology 09/18/24 Babak Sparks MD [address] [place] [address] Drive [address] [place] [address] Endocrinology 10/17/24 documented as of this encounter
--- OUTSIDE RECORDS SUMMARY | 2025-02-20 16:11 | XMS_ITS | Encounter Summary ---
Author Organization [employer] Address [address] [facility] 7t [place] [address] Care Team Providers Care Retail Manager In Training Name Role Phone Bharati Soriano MD Primary Care Provider [phone]- [phone] Vasyl Boles MD Unavailable Amador Green MD Unavailable [phone] Babak Sparks MD Unavailable [phone] Reason for Visit * Reason Comments Med Refill Encounter Details Date Type Department Care Team (Late st Contact Info) Description 07/04/2023 Refill [facility] MEDICINE 230 [place], [place] [phone] Bharati Soriano MD 230 [place], [place] [phone] Acquired hypothyroidism; Dyslipidemia Social History Tobacco Use [...] Description 03/14/2025 12:45 PM EDT Office Visit [facility] ADULT DENTAL 230 [place] [address] Denzel, Elo [address] [place] [address] 03/27/2025 11:00 AM EDT Office Visit [facility] MEDICINE [address] [place] [address] documented as of this encounter Visit Diagnoses Diagnosis Acquired hypothyroidism Unspecified hypothyroidism Dyslipidemia Other and unspecified hyperlipidemia documented in this encounter Additional Health Concerns Assessment Noted Time PHQ-9 Depression Total Score: 0 10/16/19 23 2:27 PM EDT documented as of this encounter Care Teams Retail Manager In Training Relationship Specialty Start Date End Date Bharati Soriano MD [address] [place] [address] PCP - General Family Medicine 06/14/18 Vasyl Boles MD [address] [place] [address] [place] [phone] Gastroenterology 06/20/24 Amador Green MD [address] [place] [address] Rheumatology 09/18/24 Babak Sparks MD [address] [place] [address] Endocrinology 10/17/24 documented as of this encounter
[2025-02-26 10:36] LABS: Fentanyl, Ur NEGATIVE
[2025-02-26 10:37] LABS: Norfentanyl, Ur NEGATIVE
[2025-02-26 11:27] LABS: Alprazolam, GCMS Urine NEGATIVE; Aminoclonazepam, GCMS Urine NEGATIVE
[2025-02-26 11:28] LABS: Alphahydroxymidazolam,GCMS Ur NEGATIVE; Alphahydroxytriazolam, GCMS Ur NEGATIVE; Flurazepam Metabolite,GCMS Ur NEGATIVE; Lorazepam GCMS Urine NEGATIVE; Oxazepam, GCMS Urine NEGATIVE; Temazepam, GCMS Urine NEGATIVE
[2025-02-26 11:29] LABS: Nordiazepam, GCMS Urine NEGATIVE
== END 2025-02-20 13:38 | disposition home or self-care (01) ==
LOC: HO.HHCLNP 13:37
PROVIDERS: Visit Provider Family Medicine
DX: Z79.891 Long term (current) use of opiate analgesic (principal)
CPT/HCPCS: 80346; 80354

== ENCOUNTER 2025-02-27 14:03 | Outpatient (AMB) | payer MEDICARE, MEDICAID, SELFPAY ==
--- NOTE | 2025-02-27 14:04 | A.OFFVIS_ITS ---
Vital Signs 02/27/25 14:09 Height 5 ft 0.55 in Weight 133 lb 13.129 oz BMI 25.7 BP 96/74 Blood Pressure Location Lt brachial Position Sitting Pulse 94 Pulse Source Pulse Oximeter Pulse Oximetry (%) 97 Oxygen Delivery Method Room Air Intake Visit Reasons: Osteoporosis Intake Note: Patient present today for Osteoporosis follow up. Interactive Marketing Strategist Required: No Accompanied by: Self / Same As Patient Allergies aspirin (ASPIRIN) Allergy (Severe, Verified 02/27/25 14:09) GI BLEED, severe bleeding NSAIDS (Non-Steroidal Anti-Inflamma (NSAIDS (NON-STEROIDAL ANTI-INFLAMMA) Allergy (Severe, Verified 02/27/25 14:09) GI BLEED simvastatin (Simvastatin) Allergy (Severe, Verified 02/27/25 14:09) SEVERE DIARRHEA/RECTAL BLEED/MUSCLE PAIN, upset stomach and pain lisinopril (Lisinopril) Adverse Reaction (Mild, Verified 02/27/25 14:09) COUGH, throat scratching metoprolol (From Toprol XL) Adverse Reaction (Mild, Verified 02/27/25 14:09) COUGHING any blood thinners Allergy (Severe, Uncoded 02/27/25 14:09) severe bleeding Medication List - Last Reconciled 02/27/25 by Babak Sparks MD acetaminophen (Tylenol) 650 mg PO Q6H PRN albuterol sulfate 90 mcg/actuation 2 puffs inhalation Q6H PRN alendronate (Fosamax) 70 mg PO QWEEK amlodipine (Norvasc) 2.5 mg PO DAILY cholecalciferol (vitamin D3) 25 mcg PO DAILY docusate sodium (Colace) 100 mg PO DAILY hydroxychloroquine 200 mg PO DAILY losartan 25 mg PO DAILY omeprazole 20 mg PO DAILY oxycodone-acetaminophen 5-325 mg (Percocet) 1 tab PO Q8H PRN pravastatin 20 mg PO DAILY trazodone 100 mg PO BEDTIME PRN HPI Comments Details: 69 YO Female is seen in consultation at the request of PCP for Osteoporosis. First diagnosed in 1 mo ago . Received treatment in the past with alendronate , started 5+ yrs ago Tolerated treatment well without complication. Currently off the alendronate No history of pathologic fracture or ONJ. Has several servings of dietary calcium per day in the form of cheese . Not Takes Calcium supplement . Not Takes 1000 IU of Vitamin D daily. Takes PPI, -anticoagulant, -antiepileptic or -glucocorticoid medication. 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 UTD on dental cleanings and sees dentist every 6 months. No planned upcoming dental work or extractions. DXA dated 08/22/24 : INDINGS: The bone mineral density of the lumbar spine is 1.116 with a T-score of -0.5, and a Z-score of 1.4. This represents a BMD change of 12.2% compared to the prior exam. This is statistically significant. The bone mineral density of the left total hip is 0.649 with a T-score of -2.8, and a Z-score of -1.2. This represents a BMD change of -2.1% compared to the prior exam. This is not statistically significant. The bone mineral density of the left femoral neck is 0.651 with a T-score of -2.8, and a Z-score of -0.9. This represents a BMD change of -4.0% compared to the prior exam. FRACTURE RISK: The FRAX index suggests a ten year probability of major osteoporotic fracture of 10.0%, and of hip fracture 3.0%. MM/XR DEXA axial skeleton IMPRESSION: Based on bone mineral density, and according to World Health Organization (WHO) criteria, the diagnosis is consistent with osteoporosis. Labs: No fx since last visit. On calcium and vitamin D [facility] Medical History (Updated 10/17/24 @ 13:48 by Babak Sparks MD) Raynauds disease Osteoporosis Asthma HTN (hypertension) Vitamin D deficiency Colon polyps IBS (irritable bowel syndrome) Diverticulosis Anal cancer Lupus (systemic lupus erythematosus) Surgical History Hx of hysterectomy History of dilatation and curettage H/O abdominoplasty History of appendectomy Family History Mother HTN (hypertension) Osteoporosis Social History Alcohol intake: current Alcohol intake frequency: former alcohol drinker Patient Tobacco Use Status: Never used Tobacco Physical Exam Vital Signs: BMI result Body Mass Index 25.7 Assessment & Plan Assessment & Plan (1) Osteoporosis: Code(s): M81.0 - Age-related osteoporosis without current pathological fracture Category: Medical Plan: 68-year-old female with a history of osteoporosis with partial secondary workup. Currentlywas being treated with alendronate for over 5 years . Secondary workup was negative except patient did not do 24 hour urine for calcium but could not collect 24 hr urine because of incontienence . Urine NTX is suppressed Plan is to ensure 1200 mg of calcium and continue vitamin-D supplementation. We will hold the bisphosphonate for now. We will check urine NTX prior to next appointment in 12 months Orders: Orders Collagen Crosslinks NTX 11 Months M81.0 - Age-related osteoporosis without current pathological fracture Coding Level of Care Code Est Pt Level 3 (23592) Diagnoses Osteoporosis M81.0
[2025-02-27 14:09] VITALS: BP 96/74; PULSE 94; O2SAT 97; BMI 25.7
--- OUTSIDE RECORDS SUMMARY | 2025-02-27 17:51 | XMS_ITS | Encounter Summary ---
Author Organization [employer] Address [address] [facility] 7t [place] [address] Care Team Providers Care Coal Digger Name Role Phone Bharati Soriano MD Primary Care Provider + [phone] Vasyl Boles MD Unavailable [phone] Amador Green MD Unavailable [phone] Babak Sparks MD Unavailable [phone] Encounter Details Date Type Department Care Team (Latest Contact Info) Description 03/26/2021 Abstract [facility] Dental, Provider, DDS Social History [...] Office Visit [facility] ADULT DENTAL [address] [place], [place] [phone] Denzel, Elo [address] [place] [address] documented as of this encounter Visit Diagnoses Not on filedocumented in this encounter Care Teams Coal Digger Relationship Specialty Start Date End Date Bharati Soriano MD [address] [place], [place] [phone] PCP - General Family Medicine 06/14/18 Vasyl Boles MD [address] [place] [address] [address] [place] [phone] Gastroenterology 06/20/24 Amador Green MD [address] [place] [address] Rheumatology 09/18/24 Babak Sparks MD [address] [place] [address] Drive [address] [place] [address] Endocrinology 10/17/24 documented as of this encounter
--- OUTSIDE RECORDS SUMMARY | 2025-02-27 17:51 | XMS_ITS | Encounter Summary ---
Author Organization [employer] Address [address] [facility] 7t [place] [address] Care Team Providers Care Supervisor Shipping Room Name Role Phone Bharati Soriano MD Primary Care Provider [phone] Vasyl Boles MD Unavailable [phone] Amador Green MD Unavailable Baabk Sparks MD Unavailable Reason for Visit * Reason Onset Date Comments Med Refill 03/31/2024 Encounter Details Date Type Department Care Team (Late st Contact Info) Description 03/31/2024 Telephone [facility] MEDICINE [address] [place], [place] [phone] Bharati Soriano MD [address] [place], [place] [phone] Med Refill Social History Tobacco Use Types [...] MG tablet To be sent to: [facility]/pharmacy #[id number] [place] [address] documented in this encounter Plan of Treatment Upcoming Encounters Date Type Department Care Team ([facility] st Contact Info) Description 03/14/2025 12:45 PM EDT Office Visit [facility] ADULT DENTAL [address] [place] [address] Elo Mahoney [address] [place] [address] documented as of this encounter Visit Diagnoses Not on filedocumented in this encounter Additional Health Concerns Assessment Noted Time PHQ-9 Depression Total Score: 1 01/14/20 24 10:00 AM EDT documented as of this encounter Care Teams Supervisor Shipping Room Relationship Specialty Start Date End Date Bharati Soriano MD [address] [place] [address] PCP - General Family Medicine 06/14/18 Vasyl Boles MD [address] [place] [address] [address] [facility] [address] [place] [address] Gastroenterology 06/20/24 Amador Green MD [address] [place] [address] Rheumatology 09/18/24 Babak Sparks MD [address] [place] [address] [address] [place] [address] Endocrinology 10/17/24 documented as of this encounter
--- OUTSIDE RECORDS SUMMARY | 2025-02-27 17:51 | XMS_ITS | Encounter Summary ---
Author Organization [employer] Address 75 [facility] 7t [place] [address] Care Team Providers Care Production Operator Name Role Phone Bharati Soriano MD Primary Care Provider +[phone]- [phone] Vasyl Boles MD Unavailable [phone] Amador Green MD Unavailable Babak Sparks MD Unavailable Reason for Visit * Reason Onset Date Comments Med Refill 12/01/2024 Encounter Details Date Type Department Care Team (Late st Contact Info) Description 12/01/2024 Telephone [facility] MEDICINE 230 [place], [place] [phone] Bharati Soriano MD 230 [place], [place] [phone] Med Refill Social History Tobacco Use Types [...] 5-325 MG table To be sent to: [facility]/pharmacy #[id number] [place] [address] documented in this encounter Plan of Treatment Upcoming Encounters Date Type Department Care Team (Late st Contact Info) Description 03/14/2025 12:45 PM EDT Office Visit [facility] ADULT DENTAL 230 [place] [address] Elo Mahoney 230 [place] [address] documented as of this encounter Visit Diagnoses Not on filedocumented in this encounter Additional Health Concerns Assessment Noted Time PHQ-9 Depression Total Score: 1 01/14/20 24 10:00 AM EDT documented as of this encounter Care Teams Production Operator Relationship Specialty Start Date End Date Bharati Soriano MD [address] [place] [address] PCP - General Family Medicine 06/14/18 Vasyl Boles MD [address] [place] [address] DR [facility] [address] [place] [address] Gastroenterology 06/20/24 Amador Green MD [address] [place] [address] Rheumatology 09/18/24 Babak Sparks MD [address] [place] [address] Drive [address] [place] [address] Endocrinology 10/17/24 documented as of this encounter
--- OUTSIDE RECORDS SUMMARY | 2025-02-27 17:51 | XMS_ITS | Encounter Summary ---
Author Organization [employer] Address 75 [facility] 7t [place] [address] Care Team Providers Care Wash And Greaser Name Role Phone Bharati Soriano MD Primary Care Provider +[phone]- [phone] Vasyl Boles MD Unavailable [phone] Amador Green MD Unavailable [phone] Babak Sparks MD Unavailable Reason for Visit * Reason Comments Med Refill Encounter Details Date Type Department Care Team (Late Contact Info) Description 10/05/2022 Refill [facility] MEDICINE 230 [place], [place] [phone] Bharati Soriano MD 230 [place], [place] [phone] Wheeze Social History Tobacco Use Types Packs/Day [...] Description 03/14/2025 12:45 PM EDT Office Visit [facility] ADULT DENTAL 230 [place] [address] Elo Mahoney 230 [place] [address] documented as of this encounter Visit Diagnoses Diagnosis Wheeze Wheezing documented in this encounter Care Teams Wash And Greaser Relationship Specialty Start Date End Date Bharati Soriano MD 230 [place] [address] PCP - General Family Medicine 06/14/18 Vasyl Boles MD [address] [place] [address] [address] [place] [phone] Gastroenterology 06/20/24 Amador Green MD [address] [place] [address] Rheumatology 09/18/24 Babak Sparks MD [address] [place] [address] Drive [address] [place] [address] Endocrinology 10/17/24 documented as of this encounter
--- OUTSIDE RECORDS SUMMARY | 2025-02-27 17:51 | XMS_ITS | Encounter Summary ---
Author Organization [employer] Address [address] [place] [address] 7 [place] [address] Care Team Providers Care Road Design Engineer Name Role Phone Bharati Soriano MD Primary Care Provider [phone]- [phone] Vasyl Boles MD Unavailable Amador Green MD Unavailable Babak Sparks MD Unavailable Reason for Visit * Reason Onset Date Comments Other 11/03/2022 Encounter Details Date Type Department Care Team (Late st Contact Info) Description 11/03/[address] 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 documented in this encounter Plan of Treatment Upcoming Encounters Date Type Department Care Team (Late st Contact Info) Description 03/14/2025 12:45 PM EDT Office Visit [facility] ADULT DENTAL 230 [place] [address] Denzel Elo [address] [place] [address] documented as of this encounter Visit Diagnoses Not on filedocumented in this encounter Additional Health Concerns Assessment Noted Time PHQ-9 Depression Total Score: 0 10/16/19 2:27 PM EDT documented as of this encounter Care Teams Road Design Engineer Relationship Specialty Start Date End Date Bharati Soriano MD 230 [place] [address] PCP - General Family Medicine 06/14/18 Vasyl Boles MD [address] [place] [address] [address] [place] [address] Gastroenterology 06/20/24 Amador Green MD [address] [place] [address] Rheumatology 09/18/24 Babak Sparks MD [address] [place] [address] Drive [address] [place] [address] Endocrinology 10/17/24 documented as of this encounter
--- OUTSIDE RECORDS SUMMARY | 2025-02-27 17:51 | XMS_ITS | Encounter Summary ---
Author Organization [employer] Address [address] [place] [address] 7t [place] [address] Care Team Providers Care Armament Installer Name Role Phone Bharati Soriano MD Primary Care Provider [phone]- [phone] Vasyl Boles MD Unavailable [phone] Amador Green MD Unavailable Babak Sparks MD Unavailable Reason for Visit * Reason Comments Med Refill Encounter Details Date Type Department Care Team (Late st Contact Info) Description 11/17/2022 Refill [facility] MEDICINE 230 [place], [place] [phone] Bharati Soriano MD 230 [place], [place] [phone] Wheeze Social History Tobacco Use Types Packs/Day [...] [facility] ADULT DENTAL 230 [place] [address] Elo Mahoney 230 [place], [place] [phone] documented as of this encounter Visit Diagnoses Diagnosis Wheeze Wheezing documented in this encounter Additional Health Concerns Assessment Noted Time PHQ-9 Depression Total Score: 0 10/16/19 23 2:27 PM EDT documented as of this encounter Care Teams Armament Installer Relationship Specialty Start Date End Date Bharati Soriano MD 230 [place], [place] [phone] PCP - General Family Medicine 06/14/18 Vasyl Boles MD [address] [place] [address] [address] [place] [address] Gastroenterology 06/20/24 Amador Green MD [address] [place] [address] Rheumatology 09/18/24 Babak Sparks MD [address] [place] [address] Drive [address] [place] [address] Endocrinology 10/17/24 documented as of this encounter
--- OUTSIDE RECORDS SUMMARY | 2025-02-27 17:51 | XMS_ITS | Encounter Summary ---
Author Organization [employer] Address [address] [place] [address] 7 [place] [address] Care Team Providers Care Scientist Propagator Name Role Phone Bharati Soriano MD Primary Care Provider [phone]- [phone] Vasyl Boles MD Unavailable Amador Green MD Unavailable Babak Sparks MD Unavailable Encounter Details Date Type Department Care Team (Late st Contact Info) Description 08/11/2022 Abstract [facility] MEDICINE 230 [place], [place] [phone] Bharati Soriano MD 230 [place], [place] [phone] Social History Tobacco Use Types Packs/Day Years [...] Description 03/14/2025 12:45 PM EDT Office Visit [facility] ADULT DENTAL 230 [place], [place] [phone] Elo Mahoney 230 [place] [address] documented as of this encounter Procedures Procedure Name Priority Date/Time Associated Diagnosis Comments PAP SMEAR Routine 03/14/2015 12:00 AM EDT documented in this encounter Results * Pap Smear (03/14/2015 12:00 AM EDT) Swab us Historical Provider LAB CYTOLOGY ORDERABLES F inal Result IMAGING documented in this encounter Visit Diagnoses Not on filedocumented in this encounter Care Teams Scientist Propagator Relationship Specialty Start Date End Date Bharati Soriano MD [address] [place] [address] PCP - General Family Medicine 06/14/18 Vasyl Boles MD [address] [place] [address] [address] [place] [address] Gastroenterology 06/20/24 [place] [address] [place] [address] Rheumatology 09/18/24 Babak Sparks MD [address] [place] [address] Drive [address] [place] [address] Endocrinology 10/17/24 documented as of this encounter
--- OUTSIDE RECORDS SUMMARY | 2025-02-27 17:51 | XMS_ITS | Encounter Summary ---
Author Organization [employer] Address 75 [facility] 7t [place] [address] Care Team Providers Care Retail Department Manager Name Role Phone Bharati Soriano MD Primary Care Provider [phone]- [phone] Vasyl Boles MD Unavailable Amador Green MD Unavailable [phone] Babak Sparks MD Unavailable [phone] Reason for Visit * Reason Comments Med Refill Encounter Details Date Type Department Care Team (Late st Contact Info) Description 07/16/2024 Refill [facility] MEDICINE 230 [place], [place] [phone] Bharati Soriano MD 230 [place], [place] [phone] Mild intermittent asthma, unspecified whether complicated; Acquired [...] Description 03/14/2025 12:45 PM EDT Office Visit [facility] ADULT DENTAL 230 [place] [address] Denzel Elo 230 [place] [address] documented as of this encounter Visit Diagnoses Diagnosis Mild intermittent asthma, unspecified whether complicated Acquired hypothyroidism Unspecified hypothyroidism documented in this encounter Additional Health Concerns Assessment Noted Time PHQ-9 Depression Total Score: 1 01/14/20 24 10:00 AM EDT documented as of this encounter Care Teams Retail Department Manager Relationship Specialty Start Date End Date Bharati Soriano MD 230 [place] [address] PCP - General Family Medicine 06/14/18 Vasyl Boles MD [address] [place] [address] Gastroenterology 06/20/24 Amador Green MD [address] [place] [address] Rheumatology 09/18/24 Babak Sparks MD [address] [place] [address] Drive [address] [place] [address] Endocrinology 10/17/24 documented as of this encounter
--- OUTSIDE RECORDS SUMMARY | 2025-02-27 17:51 | XMS_ITS | Patient Health Record ---
Author Organization [facility] Address [address] [place] [address] Care Team Providers Care Hadoop Administrator Name Role Phone Bharati Soriano MD [...] Problem Status W/U Status Risk Notes Problem 827314852 Colon cancer screening (Z12.11) Active confirmed Problem 871664114 Radiation procti tis (K62.7) Active confirmed Problem 076251147 Gastroesophageal reflux disease without esophagitis (K21.9) Active confirmed Problem History of malignant neoplasm of rectum (507533270) 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) Active confirmed Problem 80169428 Incontinence of feces, unspecified fecal incontinence type (R15.9) Active confirmed Plan Of Treatment Future Test Test Name Order Date COLONOSCOPY 07/14/2018 COLONOSCOPY 12/25/2021 Insurance Providers Payer Name Payer Address Payer Phone Subscriber Number Group Number Insured Name Patient Relationship to Insured Coverage Start Date Coverage End Date MEDICARE OF [place] [address] [place] [address] [id number] PATT RENDON Self - patient is the insured MEDICAID OF [facility] [address] [place] [address] [id number] PATT RENDON Self - patient is the insured Medical (General) History Medical History History ICD Code hypertension 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
--- OUTSIDE RECORDS SUMMARY | 2025-02-27 17:51 | XMS_ITS | Encounter Summary ---
Author Organization [employer] Address [address] [facility] [address] 7t [place] [address] Care Team Providers Care Lab Coordinator Name Role Phone Bharati Soriano MD Primary Care Provider [phone]- [phone] Vasyl Boles MD Unavailable Amador Green MD Unavailable Babak Sparks MD Unavailable [phone] Encounter Details Date Type Department Care Team (Late st Contact Info) Description 09/29/2023 Abstract [facility] MEDICINE 230 [place], [place] [phone] Bharati Soriano MD 230 [place], [place] [phone] Social History Tobacco Use Types Packs/Day Years [...] Description 03/14/2025 12:45 PM EDT Office Visit [facility] ADULT DENTAL 230 [place], [place] [phone] Al Mhaoneyaris 230 [place] [address] documented as of this encounter Procedures Procedure [...] documented as of this encounter Care Teams Lab Coordinator Relationship Specialty Start Date End Date Bharati Soriano MD 230 [place] [address] PCP - General Family Medicine 06/14/18 Vasyl Boles MD [address] [place] [address] [address] [place] [phone] Gastroenterology 06/20/24 Amador Green MD [address] [place] [address] Rheumatology 09/18/24 Babak Sparks MD 10 [facility] [address] [place] [address] Endocrinology 10/17/24 documented as of this encounter
--- OUTSIDE RECORDS SUMMARY | 2025-02-27 17:51 | XMS_ITS | Encounter Summary ---
Author Organization [employer] Address [address] [place] [address] [place], [place] [address] Care Team Providers Care Paper Deliverer Name Role Phone Bharati Soriano MD Primary Care Provider [phone]- [phone] Vasyl Boles MD Unavailable [phone] Amador Green MD Unavailable [phone] Babak Sparks MD Unavailable [phone] Reason for Referral * Consultation (Routine) - Closed Specialty Diagnoses / Procedures Referred By Contac t Referred To Contact Physical Therapy Diagnoses Chronic low back pain, unspecified back pain laterality, unspecified whether sciatica present Bharati Soriano MD 230 [place] [address] Phone: tel: fax: [facility] / , [address] Phone: tel: fax: Referral ID Status Reason Start Date Expiration Date V isits Requested Visits Authorized [id number] Closed Specialty Services Required 10/15/2023 10/14/2024 1 1 Encounter Details Date Type Department Care Team (Late st Contact Info) Description 10/15/2023 Orders Only [facility] MEDICINE 230 [place] [address] Bharati Soriano MD 230 [place], [place] [phone] Chronic low back pain, unspecified back pain [...] Description 03/14/2025 12:45 PM EDT Office Visit [facility] ADULT DENTAL 230 [place] [address] Elo Mahoney 230 [place] [address] Scheduled Referrals Name Type Priority Associated Diagnoses [...] documented as of this encounter Care Teams Paper Deliverer Relationship Specialty Start Date End Date Bharati Soriano MD [address] [place] [address] PCP - General Family Medicine 06/14/18 Vasyl Boles MD [address] [place] [address] [address] [place] [phone] Gastroenterology 06/20/24 Amador Green MD [address] [place] [address] Rheumatology 09/18/24 Babak Sparks MD [address] [place] [address] Drive [address] [place] [address] Endocrinology 10/17/24 documented as of this encounter
--- OUTSIDE RECORDS SUMMARY | 2025-02-27 17:51 | XMS_ITS | Encounter Summary ---
Author Organization [employer] Address 75 [facility] 7t [place] [address] Care Team Providers Care Precision Inspector Name Role Phone Bharati Soriano MD Primary Care Provider [phone]- [phone] Vasyl Boles MD Unavailable Amador Green MD Unavailable [phone] Babak Sparks MD Unavailable [phone] Reason for Visit * Reason Comments Med Refill Encounter Details Date Type Department Care Team (Late st Contact Info) Description 07/30/2024 Refill [facility] MEDICINE 230 [place], [place] [phone] Bharati Soriano MD 230 [place], [place] [phone] Gastroesophageal reflux disease without esophagitis Social History [...] [facility] AD[facility] 230 [place] [address] Denzel, Elo 230 [place] [address] documented as of this encounter Visit Diagnoses Diagnosis Gastroesophageal reflux disease without esophagitis Esophageal reflux documented in this encounter Additional Health Concerns Assessment Noted Time PHQ-9 Depression Total Score: 1 01/14/20 24 10:00 AM EDT documented as of this encounter Care Teams Precision Inspector Relationship Specialty Start Date End Date Bharati Soriano MD 230 [place] [address] PCP - General Family Medicine 06/14/18 Vasyl Boles MD [address] [place] [address] [place] [phone] Gastroenterology 06/20/24 [place] [address] [place] [address] Rheumatology 09/18/24 Babak Sparks MD [address] [place] [address] Endocrinology 10/17/24 documented as of this encounter
--- OUTSIDE RECORDS SUMMARY | 2025-02-27 17:51 | XMS_ITS | Encounter Summary ---
Author Organization [employer] Address 75 [facility] 7t [place] [address] Care Team Providers Care Airline Security Representative Name Role Phone Bharati Soriano MD Primary Care Provider [phone]- [phone] Vasyl Boles MD Unavailable Amador Green MD Unavailable Babak Sparks MD Unavailable Reason for Visit * Reason Onset Date Comments requesting a call back 09/07/2022 Encounter Details Date Type Department Care Team (Late st Contact Info) Description 09/07/2022 Telephone [facility] MEDICINE 230 [place], [place] [phone] Bharati Soriano MD 230 [place] [address] requesting a call back Social History Tobacco [...] Description 03/14/2025 12:45 PM EDT Office Visit [facility] ADULT DENTAL 230 [place], [place] [phone] Denzel, Elo 230 [place] [address] documented as of this encounter Visit Diagnoses Not on filedocumented in this encounter Care Teams Airline Security Representative Relationship Specialty Start Date End Date Bharati Soriano MD 230 [place] [address] PCP - General Family Medicine 06/14/18 Vasyl Boles MD [address] [place] [address] DR [facility] [address] [place] [address] Gastroenterology 06/20/24 Amador Green MD [address] [place] [address] Rheumatology 09/18/24 Babak Sparks MD [address] [place] [address] Drive [address] [place] [address] Endocrinology 10/17/24 documented as of this encounter
--- OUTSIDE RECORDS SUMMARY | 2025-02-27 17:51 | XMS_ITS | Encounter Summary ---
Author Organization [employer] Address 75 [facility] 7t [place] [address] Care Team Providers Care Academic Interventionist Name Role Phone Bharati Soriano MD Primary Care Provider [phone]- [phone] Vasyl Boles MD Unavailable [phone] Amador Green MD Unavailable Babak Sparks MD Unavailable [phone] Encounter Details Date Type Department Care Team (Late st Contact Info) Description 08/01/2024 Orders Only [facility] MEDICINE 230 [place], [place] [phone] Rosi Vergara MD 230 [place], [place] [phone] Primary hypertension; Chronic renal impairment, stage 2 [...] Description 03/14/2025 12:45 PM EDT Office Visit [facility] ADULT DENTAL 230 [place] [address] Denzel Elo 230 [place] [address] documented as of this encounter Visit Diagnoses Diagnosis Primary hypertension Unspecified essential hypertension Chronic renal impairment, stage 2 (mild) documented in this encounter Additional Health Concerns Assessment Noted Time PHQ-9 Depression Total Score: 1 01/14/20 24 10:00 AM EDT documented as of this encounter Care Teams Academic Interventionist Relationship Specialty Start Date End Date Bharati Soriano MD 230 [place] [address] PCP - General Family Medicine 06/14/18 Vasyl Boles MD [address] [place] [address] [place] [address] Gastroenterology 06/20/24 [place] [address] [place] [address] Rheumatology 09/18/24 Babak Sparks MD [address] [place] [address] Drive [address] [place] [address] Endocrinology 10/17/24 documented as of this encounter
--- OUTSIDE RECORDS SUMMARY | 2025-02-27 17:51 | XMS_ITS | Encounter Summary ---
Author Organization [employer] Address [address] [place] [address] 7t [place] [address] Care Team Providers Care Aerobics Instructor Name Role Phone Bharati Soriano MD Primary Care Provider [phone]- [phone] Vasyl Boles MD Unavailable [phone] Amador Green MD Unavailable Babak Sparks MD Unavailable [phone] Encounter Details Date Type Department Care Team (Late st Contact Info) Description 06/12/2022 Orders Only [facility]S [address] [place], [place] [phone] Leena Verdin ANP 230 [place] [address] Social History Tobacco Use Types Packs/Day Years [...] Description 03/14/2025 12:45 PM EDT Office Visit [facility] ADULT DENTAL 230 [place] [address] Elo Mahoney 230 [place] [address] documented as of this encounter Visit Diagnoses Not on filedocumented in this encounter Care Teams Aerobics Instructor Relationship Specialty Start Date End Date Bharati Soriano MD 230 [place] [address] PCP - General Family Medicine 06/14/18 Vasyl Boles MD [address] [place] [address] [address] [place] [address] Gastroenterology 06/20/24 Amador Green MD [address] [place] [address] Rheumatology 09/18/24 Babak Sparks MD [address] [place] [address] Drive [address] [place] [address] Endocrinology 10/17/24 documented as of this encounter
--- OUTSIDE RECORDS SUMMARY | 2025-02-27 17:51 | XMS_ITS | Encounter Summary ---
Author Organization [employer] Address [address] [place] [address] 7t [place] [address] Care Team Providers Care Machinist Linotype Name Role Phone Bharati Soriano MD Primary Care Provider [phone]- [phone] Vasyl Boles MD Unavailable Amador Green MD Unavailable Babak Sparks MD Unavailable Reason for Visit * Reason Onset Date Comments Medication Question 06/12/2022 Encounter Details Date Type Department Care Team ([facility] st Contact Info) Description 06/12/2022 Telephone [facility] MEDICINE 230 [place], [place] [phone] Bharati Soriano MD 230 [place], [place] [phone] Medication Question Social History Tobacco Use Types [...] sent on the to a place in [place] . Ptstates [facility] [address] . Pt would like to know if she will be able to get meds before the long weekend ? documented in this encounter Plan of Treatment Upcoming Encounters Date Type Department Care Team (Late st Contact Info) Description 03/14/2025 12:45 PM EDT Office Visit [facility] ADULT DENTAL 230 [place], [place] [phone] Al Mahoneyaris 230 [place] [address] documented as of this encounter Visit Diagnoses Diagnosis Pain Generalized pain documented in this encounter Care Teams Machinist Linotype Relationship Specialty Start Date End Date Bharati Soriaon MD 230 [place], [place] [phone] PCP - General Family Medicine 06/14/18 Vasyl Boles MD [address] [place] [address] [address] [place] [address] Gastroenterology 06/20/24 Amador Green MD [address] [place] [address] Rheumatology 09/18/24 Babak Sparks MD [address] [place] [address] Drive [address] [place] [address] Endocrinology 10/17/24 documented as of this encounter
--- OUTSIDE RECORDS SUMMARY | 2025-02-27 17:51 | XMS_ITS | Clinical Summary ---
Author Organization [employer] Address [address] 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 Utox positive BZO, confirmatory testing sent out Assessment & Plan (07/13/2024 4:18 PM EST): Medication: Percocet 5-325mg Q6H PRN Indication: lumbar radiculopathy Last HOSE BUILDER Agreement: 08/24/23 Assessment & Plan (04/04/2024 5:26 [...] Overview (07/12/2024): Lab Results Component Value Date [id number] 35.8 04/26/2024 Insomnia 12/22/2023 Other specified health status 04/24/2023 Overview (07/12/2024): -next comprehensive annual evaluation due after 07/12/25 -eye care facilitated by [facility] -dental home is [facility] -Health care proxy given and filed 12/22/23 Assessment & Plan (07/12/2024 4:10 PM EST): -next comprehensive annual evaluation due after 07/12/25 -eye care facilitated by [facility] -dental home is [facility] -Health care proxy given and filed 12/22/23 Assessment & Plan (12/22/2023 2:27 PM EDT): -next physical exam due after 05/12/2024 -eye care facilitated by [facility] -dental home is [facility] -Health care proxy given and filed [...] Sicca symptoms, positive LUISITO, positive Sm and 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 Followed by rheumatology. Lat note from Amador Green from 09/14/24 reviewed. 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 Followed by rheumatology. Lat note from Amador Green from 09/14/24 reviewed. 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 Followed by rheumatology. Lat note from Dr. Flores 04/06/23 reviewed. 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 Followed by rheumatology. Lat note from Dr. Flores 04/06/23 reviewed. 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 Followed by rheumatology. Lat note from Dr. Flores 04/06/23 reviewed. 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 Followed by rheumatology. -Plaquenil 200mg BID started 04/2018 -continue regular eye exams -s/p flu vaccine 02/2020 done at [facility] -PCV 04/2019 Chronic diarrhea 05/08/2022 Osteoporosis 05/08/2022 [...] as expected, utox abnormal. Confirmatory pending. See calender feeder. Assessment & Plan (12/19/2024 7:40 PM EDT): Good engagement and participation with Group Medical Visit model Encouraged multifactorial approach to pain control including pharm and non-pharm modalities Followup every 3 months with pill count and utox Pill count as expected, utox neg for oxy. Confirmatory pending. See calender feeder. Assessment & Plan (09/19/2024 2:07 PM EDT): [...] opioid. Confirmatory testing sent to lab. See calender feeder. Assessment & Plan (07/12/2024 4:09 PM EST): [...] -UTOX and pill count as expected. See calender feeder for further details -Encouraged to cont with [...] Description 02/20/2025 11:00 AM EDT Office Visit [facility] [address] [place] [address] Mily Alfredo, BRENDNO Chronic low back pain, unspecified back pain laterality, unspecified whether sciatica present (Primary Dx); [facility] (current) use of opiate analgesic 02/20/2025 Telephone [facility] [address] [place] [address] Lety Ricks RN Abormal UTOX results 02/20/2025 Travel 02/13/2025 Telephone [facility] [address] [place] [address] Jocelyn Randall RN 02/05/2025 Refill [facility] [address] [place] [address] Bharati Soirano MD Primary hypertension; Chronic renal impairment, stage 2 (mild) 01/31/2025 Refill [facility] [address] [place] [address] Jocelyn Randall RN Pain 01/31/[address] [address] Bharati Soriano MD Med Refill 01/24/[address] [address] Vilma Williamson RN Results 12/29/2024 Refill [facility] [address] [place] [address] Bharati Soriano MD Pain 12/19/2024 11:00 AM EDT Office Visit [address] [address] Mily Alfredo, CAMPUS AIDE Chronic low back pain, unspecified back pain laterality, unspecified whether sciatica present (Primary Dx); 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 12/19/2024 Telephone [facility] [address] [place] [address] Lety Ricks RN Abnormal UTOX today; BPI results 12/19/2024 Orders Only [facility] [address] [place] [address] Mily Alfredo, CAMPUS AIDE 12/19/2024 Travel 12/06/2024 11:00 AM EDT Office Visit [address] [address] Bharati Soriano MD Numbness and tingling of both legs below knees (Primary Dx); Viral warts, unspecified type; Dermatitis; Venous stasis; Excessive cerumen in left ear canal; Systemic lupus erythematosus, unspecified SLE type, unspecified organ involvement status ([facility]); Osteoporosis, unspecified osteoporosis type, unspecified pathological fracture presence; Primary hypertension; [facility] (current) use of opiate analgesic; Tubular adenoma of colon; Overweight with body mass index (BMI) 25.0-29.9; Dietary counseling; Exercise counseling 12/06/2024 Refill [facility] [address] [place] [address] Bharati Soriano MD Dermatitis 12/06/[address] [address] Bharati Soriano MD Durable Medical Equipment (DME Order: Compression Stockings) 12/06/2024 Travel 12/05/[address] [address] Bharati Soriano MD CHART PREP 12/01/2024 Refill [facility] [address] [place] [address] Jocelyn Randall RN Pain 12/01/[address] [address] Bharati Soriano MD Med Refill 11/28/2024 Patient Outreach [facility] [address], [place] [phone] Bharati Soriano MD Pre-visit Planning ([facility] unable to reach [facility]) from Last 3 Months Immunizations Immunization Administration [...] Description 03/14/2025 12:45 PM EDT Office Visit [facility] [address] [place] [address] Denzel, Elo [address] [place] [address] Health Maintenance Due Date Last Done Comments [...] Tobacco Screening 12/06/2025 12/06/2024 Mammogram 11/14/2026 11/14/2024, 09/12, 09/22/2023, Additional history exists Colonoscopy 03/30/2027 03/30/2022 [...] DRUG SCREEN Routine 02/20/2025 11:35 AM EDT [facility] (current) use of opiate analgesic DRUG MONITOR, FENTANYL, W/CONF, URINE Routine 02/20/2025 11:00 AM EDT [facility] (current) use of opiate analgesic DRUG MONITORING, BENZODIAZEPINES, QUANTITATIVE, URINE Routine 02/20/2025 11:00 AM EDT [facility] (current) use of opiate analgesic POCT MADHU-14 [...] - 02/20/2025 11:35 AM EDT UTOX cup Lot#[id number] Exp. 03/20/26 Internal Pass Control Bharati Soriano MD POINT OF CARE TEST ENTER/E DIT ORDERABLES Final Result * Drug Monitoring, Benzodiazepines, Quantitative, Urine (02/20/2025 11:00 AM EDT) Nordiazepam, GCMS Urine NEGATIVE [facility] Comment:CUTOFF 50 NG/MLPERFO RMING SITE:[employer] [facility], [address] [place], [place] [phone] Satellite Installer: VAUGHN BAUTISTA MD, CLIA:[id number] Oxazepam, GCMS Urine NEGATIVE [facility] Comment:CUTOFF 50 NG/ML Lorazepam GCMS Urine NEGATIVE [facility] Comment:CUTOFF 50 NG/ML Alprazolam, GCMS Urine NEGATIVE [facility] Comment:CUTOFF 25 NG/ML Alphahydroxytriazolam, GCMS Ur NEGATIVE [facility] Comment:CUTOFF 50 NG/ML Temazepam, GCMS Urine NEGATIVE [facility] Comment:CUTOFF 50 NG/ML Alphahydroxymidazolam,GC MS Ur NEGATIVE [facility] Comment:CUTOFF 50 NG/ML Aminoclonazepam, GCMS Urine NEGATIVE [facility] Comment:CUTOFF 25 NG/ML Flurazepam Metabolite,GCMS Ur NEGATIVE [facility] Comment:CUTOFF 50 NG/ML Benzodiazepines Comments SEE NOTE [facility] Comment:This drug testing is for medical treatment only. Analysiswas performed as non-forensic testing and these resultsshould be used only by healthcare providers to renderdiagnosis or treatment, or to monitor progress of medicalconditions.Confirmation tests were developed and their analyticalperformance characteristics have been determined by [employer]. It has not been cleared or approved by the FDA.This assay has been validated pursuant to the CLIAregulations and is used for clinical purposes.Healthcare Providers needing Interpretation assistance,please contact us at [phone] ( ) M-F,8am to 10pm EST Urine (Urine, Random) 02/20/2025 11:00 AM EDT 02/20/2025 1:41 PM EDT us Bharati Soriano MD LAB URINE ORDERABLES Final Result [facility] [address] [place] [phone] [phone] * Drug Monitoring, Fentanyl, with Confirmation, Urine (02/20/2025 11:00 AM EDT) Fentanyl, Ur NEGATIVE [facility] Comment:CUTOFF 0.5 NG/MLPERF ORMING SITE:[employer] [facility], [address] [place], [place] [phone] Satellite Installer: VAUGHN BAUTISTA MD, CLIA:[id number] Norfentanyl, Ur NEGATIVE [facility] Comment:CUTOFF 0.5 NG/ML Fentanyl Note SEE NOTE [facility] Comment:This drug testing is for medical treatment only. Analysiswas performed as non-forensic testing and these resultsshould be used only by healthcare providers to renderdiagnosis or treatment, or to monitor progress of medicalconditions.Confirmation tests were developed and their analyticalperformance characteristics have been determined by [employer]. It has not been cleared or approved by the FDA.This assay has been validated pursuant to the CLIAregulations and is used for clinical purposes.Healthcare Providers needing Interpretation assistance,please contact us at [phone] ( ) M-F,8am to 10pm EST Urine (Urine, Random) 02/20/2025 11:00 AM EDT 02/20/2025 1:41 PM EDT Bharati Soriano MD LAB URINE ORDERABLES Final Result Performing Organization Address [facility]/ZIP Co de Phone Number [facility] [address] [place] [phone] * (ABNORMAL) Oxycodone Screen, Urine (12/19/2024 12:00 AM EDT) Oxycodone Urine Screen Positive( A) Not Detect ng/mL [facility] Comment:Oxycodone cut-off is 100 ng/mL.Positive results are unconfirmed and should not be used fornon-medical purposes. 12/19/2024 12/19/2024 Mily OLIVAS LAB URINE ORDERABLES Final Res ult Performing Organization Address [facility]/ZIP Co de Phone Number [facility] [address] [place] [phone] * Syphilis Screen (12/06/2024 12:02 PM EDT) Syphilis Screen Nonreactive Nonreactive [facility] Blood Venous blood specimen / Unknown 12/06/2024 12:02 PM EDT 12/06/2024 1:26 PM EDT Bharati Soriano MD LAB BLOOD ORDERABLES Final Result Performing Organization Address City/[facility]/ZIP Co de Phone Number [facility] [address] [place] [phone] * Vitamin B12/Folate, Serum Panel (12/06/2024 12:02 PM EDT) [facility] Vitamin B12 245 200 - 900 pg/mL [facility] Comment:NORMAL 200-900 PG/ML INDETERMINATE 160-199 PG/ML DEFICIENT < 160 PG/ML Folate 7.8 > or = 4.0 ng/mL [facility] Comment:Reference Values:> o r = 4.0 [...] BLOOD ORDERABLES Final Result Performing Organization Address City/[facility]/ZIP Co de Phone Number [facility] [address] [place] [phone] * TSH W/Reflex to FT4 (12/06/2024 11:47 AM EDT) [facility] TSH reflex Free T4 3.46 0.32 - 4.0 uIU/mL [facility] Blood Venous blood specimen / Unknown 12/06/2024 11:47 AM EDT 12/06/2024 1:26 PM EDT Bharati Soriano MD LAB BLOOD ORDERABLES Final Result [facility] [address] [place] [phone] * BI Mammogram Screening Tomosynthesis Bilateral (11/14/2024 1:10 PM EDT) Anatomical Region Laterality Modality Breast Bilateral Mammography 11/14/2024 1:10 PM EDT Narrative 11/19/2024 1:39 PM EDT [facility] [address] [place] [address] Mammography Report Signed Patient: Sara Lancaster MR#: [id number] : 1955 Acct:[id number] Age/Sex: 68 / F ADM Date: 11/14/24 Loc: HO.MAMMO Attending Dr: Bharati Soriano MD Ordering Physician: Bharati Soriano MD Results: 1N egative Date of Service: 11/14/24 Follow Up: 1 Year From [facility] Mammogram Procedure(s): MM tomosynthesis screening BI Accession Number(s): [id number] cc: Bharati Soriano MD EXAMINATION: MM SCREENING [...] 11/19/24 1336 DD/ 1310 TD/TT: 11/14/24 1325 Wearing Apparel Shaker: Procedure Note Donotuseinterpreter, Image - 11/19/2024 [facility] [address] [place] [address] Mammography Report Signed Patient: Davis LancasteradMR#: [id number] : 1955cct:[id number] Age/Sex: 68 / FADM Date: 11/14/24 Loc: HO.MAMMO Attending Dr: Bharati Soriano MD Ordering Physician: Bharati Soriano MDResults: 1N egative Date of Service: 11/14/24Follow Up: 1 Year From Orig inal Mammogram Procedure(s): MM tomosynthesis screening BI Accession Number(s): [id number] cc: Bharati Soriano MD EXAMINATION: MM SCREENING [...] 11/19/24 1336 DD/ 1310 TD/TT: 11/14/24 1325 Wearing Apparel Shaker: Bharati Soriano MD IMG BI PROCEDURES Edited R esult - Final * Lipid Panel, Standard (04/26/2024 10:02 AM EST) Triglycerides 118 <150 mg/dL [facility] Comment:Desirable Triglyceri de: less than 150 mg/dLBorderline High Triglyceride 150-199 mg/dLHigh Triglyceride: 200-499 mg/dLVery High Triglyceride: greater than or equal to 5OO mg/dL Cholesterol 173 <200 mg/dL [facility] Comment:Desirable Cholestero l: less than 200 mg/dLBorderline High Cholesterol: 200-239 mg/dLHigh Cholesterol: greater than 239 mg/dL LDL Cholesterol Calculated 84 <100 mg/dL [facility] Comment:Desirable LDL: less than 100 mg/dLNear Optimal/Above Optimal LDL: 110- 129 mg/dLBorderline High LDL: 130-159 mg/dLHigh LDL: 160-189 mg/dLVery High LDL: greater than or equal to 190 mg/dL HDL Cholesterol 66 >40 mg/dL [facility] Comment:Desirable HDL: great er than 40 mg/dL Note: This HDL assay may give artificially low results in patients with liver disease. Blood Venous blood specimen / Unknown 04/26/2024 10:02 AM EST 04/26/2024 10:02 AM EST Bharati Soriano MD LAB BLOOD ORDERABLES Final Result [facility] [address] [place], [place] [phone] * Colonoscopy (03/30/2022) Colonoscopy Tubular adenoma Dr. 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
--- OUTSIDE RECORDS SUMMARY | 2025-02-27 17:51 | XMS_ITS | Encounter Summary ---
Author Organization [employer] Address [address] [place] [address] 7t [place] [address] Care Team Providers Care Hazardous Materials Analyst Name Role Phone Bharati Soriano MD Primary Care Provider + [phone] Vasyl Boles MD Unavailable [phone] Amador Green MD Unavailable Babak Sparks MD Unavailable [phone] Encounter Details Date Type Department Care Team (Latest Contact Info) Description 03/16/2022 Abstract [facility] CONVERSIONS Dental, Provider, DDS Social History [...] Office Visit [facility] ADULT [facility] [address] [place], [place] [phone] Denzel, Elo [address] [place] [address] documented as of this encounter Visit Diagnoses Not on filedocumented in this encounter Care Teams Hazardous Materials Analyst Relationship Specialty Start Date End Date Bharati Soriano MD [address] [place], [place] [phone] PCP - General Family Medicine 06/14/18 Vasyl Boles MD [address] [place] [address] [address] [place] [phone] Gastroenterology 06/20/24 Amador Green MD [address] [place] [address] Rheumatology 09/18/24 Babak Sparks MD [address] [place] [address] Drive [address] [place] [address] Endocrinology 10/17/24 documented as of this encounter
--- OUTSIDE RECORDS SUMMARY | 2025-02-27 17:51 | XMS_ITS | Encounter Summary ---
Author Organization [employer] Address [address] [facility] [address] [place] [address] Care Team Providers Care Regulatory Lead Name Role Phone Bharati Soriano MD Primary Care Provider [phone] Vasyl Boles MD Unavailable [phone] Amador Green MD Unavailable [phone] Babak Sparks MD Unavailable [phone] Encounter Details Date Type Department Care Team (Late st Contact Info) Description 09/29/2023 Orders Only [facility] [address] [place], [place] [phone] Bryon Fuller MD [address] [place], [place] [phone] Social History Tobacco Use Types Packs/Day Years [...] Description 03/14/2025 12:45 PM EDT Office Visit [facility] [address] [place] [address] Denzel, Elo [address] [place] [address] documented as of this encounter Visit Diagnoses Not on filedocumented in this encounter Additional Health Concerns Assessment Noted Time PHQ-9 Depression Total Score: 0 10/16/19 23 2:27 PM EDT documented as of this encounter Care Teams Regulatory Lead Relationship Specialty Start Date End Date Bharati Soriano MD [address] [place] [address] PCP - General Family Medicine 06/14/18 Vasyl Boles MD [address] [place] [address] [address] [place] [address] Gastroenterology 06/20/24 Amaodr Green MD [address] [place] [address] Rheumatology 09/18/24 Babak Sparks MD [address] [place] [address] Drive [address] [place] [address] Endocrinology 10/17/24 documented as of this encounter
--- OUTSIDE RECORDS SUMMARY | 2025-02-27 17:51 | XMS_ITS | Encounter Summary ---
Author Organization [employer] Address [address] [facility] 7t [place] [address] Care Team Providers Care Yard Operator Name Role Phone Bharati Soriano MD Primary Care Provider [phone] Vasyl Boles MD Unavailable Amador Geren MD Unavailable [phone] Babak Sparks MD Unavailable [phone] Encounter Details Date Type Department Care Team (Late st Contact Info) Description 10/12/2022 Abstract [facility] [address] [place], [place] [phone] Bharati Soriano MD [address] [place], [place] [phone] Social History Tobacco Use Types Packs/Day Years [...] Not at all 10/15/2022 2:27 PM JENNIFERT Isauar Gooed [place] Moving or speaking so slowly that [...] Description 03/14/2025 12:45 PM EDT Office Visit [facility] ADULT [facility] [address] [place] [address] Elo Mahoney [address] [place] [address] documented as of this encounter Visit Diagnoses Not on filedocumented in this encounter Care Teams Yard Operator Relationship Specialty Start Date End Date Bharati Soriano MD [address] [place] [address] PCP - General Family Medicine 06/14/18 Vasyl Boles MD [address] [place] [address] DR [facility] [address] [place] [phone] Gastroenterology 06/20/24 [place] [address] [place] [phone] Rheumatology 09/18/24 Babak Sparks MD [address] [place] [address] Drive [address] [place] [address] Endocrinology 10/17/24 documented as of this encounter
--- OUTSIDE RECORDS SUMMARY | 2025-02-27 17:51 | XMS_ITS | Encounter Summary ---
Author Organization [employer] Address 75 [facility] 7t [place] [address] Care Team Providers Care Salesforce Developer Name Role Phone Bharati Soriano MD Primary Care Provider +[phone]- [phone] Vasyl Boles MD Unavailable Amador Green MD Unavailable [phone] Babak Sparks MD Unavailable [phone] Reason for Visit * Reason Onset Date Comments Call Back Request 10/25/2023 Encounter Details Date Type Department Care Team (Late st Contact Info) Description 10/25/2023 Telephone [facility] MEDICINE [address] [place], [place] [phone] Bharati Soriano MD [address] [place], [place] [phone] Call Back Request Social History Tobacco Use [...] of every month. Please contact pt at [phone] documented in this encounter Plan of Treatment Upcoming Encounters Date Type Department Care Team (Late st Contact Info) Description 03/14/2025 12:45 PM EDT Office Visit [facility] ADULT DENTAL [address] [place] [address] Elo Mahoney 230 [place] [address] documented as of this encounter Visit Diagnoses Not on filedocumented in this encounter Additional Health Concerns Assessment Noted Time PHQ-9 Depression Total Score: 0 10/16/19 23 2:27 PM EDT documented as of this encounter Care Teams Salesforce Developer Relationship Specialty Start Date End Date Bharati Soriano MD [address] [place] [address] PCP - General Family Medicine 06/14/18 Vasyl Boles MD [address] [place] [address] [address] [place] [address] Gastroenterology 06/20/24 [place] [address] [place] [address] Rheumatology 09/18/24 Babak Sparks MD [address] [place] [address] Drive [address] [place] [address] Endocrinology 10/17/24 documented as of this encounter
--- OUTSIDE RECORDS SUMMARY | 2025-02-27 17:51 | XMS_ITS | Encounter Summary ---
Author Organization [employer] Address 75 [facility] 7t [place] [address] Care Team Providers Care Rehabilitation Program Coordinator Name Role Phone Bharati Soriano MD Primary Care Provider +1- [phone] Vasyl Boles MD Unavailable [phone] Amador Green MD Unavailable Babak Sparks MD Unavailable Reason for Visit * Reason Comments Med Change Request Encounter Details Date Type Department Care Team (Late st Contact Info) Description 09/08/2022 Refill [facility] MEDICINE 230 [place], [place] [phone] Bharati Soriano MD 230 [place], [place] [phone] Social History Tobacco Use Types Packs/Day Years [...] Description 03/14/2025 12:45 PM EDT Office Visit [facility] ADULT DENTAL 230 [place], [place] [phone] Denzel, Elo 230 [place] [address] documented as of this encounter Visit Diagnoses Not on filedocumented in this encounter Care Teams Rehabilitation Program Coordinator Relationship Specialty Start Date End Date Bharati Soriano MD 230 [place] [address] PCP - General Family Medicine 06/14/18 Vasyl Boles MD [address] [place] [address] DR [facility] [address] [place] [address] Gastroenterology 06/20/24 Amador Green MD [address] [place] [address] Rheumatology 09/18/24 Babak Sparks MD [address] [place] [address] Drive [address] [place] [address] Endocrinology 10/17/24 documented as of this encounter
--- OUTSIDE RECORDS SUMMARY | 2025-02-27 17:52 | XMS_ITS | Encounter Summary ---
Author Organization [employer] Address 75 [facility] 7t [place] [address] Care Team Providers Care Health Care Consultant Name Role Phone Bharati Soriano MD Primary Care Provider +1- [phone] Vasyl Boles MD Unavailable Amador Green MD Unavailable Babak Sparks MD Unavailable Reason for Visit * Reason Onset Date Comments Med Refill 02/01/2024 Encounter Details Date Type Department Care Team (Late st Contact Info) Description 02/01/2024 Telephone [facility] MEDICINE 230 [place], [place] [phone] Bharati Soriano MD 230 [place], [place] [phone] Med Refill Social History Tobacco Use Types [...] To be sent to: [facility]/pharmacy [address] [place] [address] - [address] [place] [address] documented in this encounter Plan of Treatment Upcoming Encounters Date Type Department Care Team (Late st Contact Info) Description 03/14/2025 12:45 PM EDT Office Visit [facility] ADULT DENTAL 230 [place] [address] Denzel, Elo 230 [place] [address] documented as of this encounter Visit Diagnoses Not on filedocumented in this encounter Additional Health Concerns Assessment Noted Time PHQ-9 Depression Total Score: 1 01/14/20 24 10:00 AM EDT documented as of this encounter Care Teams Health Care Consultant Relationship Specialty Start Date End Date Bharati Soriano MD 230 [place] [address] PCP - General Family Medicine 06/14/18 Vasyl Boles MD [address] [place] [address] [address] [place] [address] Gastroenterology 06/20/24 Amador Green MD [address] [place] [address] Rheumatology 09/18/24 Babak Sparks MD [address] [place] [address] Drive [address] [place] [address] Endocrinology 10/17/24 documented as of this encounter
--- OUTSIDE RECORDS SUMMARY | 2025-02-27 17:52 | XMS_ITS | Encounter Summary ---
Author Organization [employer] Address [address] [facility] [address] 7t [place] [address] Care Team Providers Care Inventory Planner Name Role Phone Bharati Soriano MD Primary Care Provider [phone]- [phone] Vasyl Boles MD Unavailable [phone] Amador Green MD Unavailable Babak Sparks MD Unavailable [phone] Encounter Details Date Type Department Care Team (Late st Contact Info) Description 01/04/2024 Orders Only [facility] MEDICINE 230 [place], [place] [phone] Hortencia Beard, JÚNIOR 230 [place] [address] Pain Social History Tobacco Use Types Packs/Day [...] 03/14/2025 12:45 PM EDT Office Visit [facility] ADULT DENTAL 230 [place], [place] [phone] Denzel, Elo 230 [place] [address] documented as of this encounter Procedures Procedure Name Priority Date/Time Associated Diagnosis Comments DRUG MONITORING, BENZODIAZEPINES, QUANTITATIVE, URINE Routine 01/04/2024 11:23 AM EDT Pain documented in this encounter Results * Drug Monitoring, Benzodiazepines, Quantitative, Urine (01/04/2024 11:23 AM EDT) Nordiazepam, GCMS Urine NEGATIVE [facility] Oxazepam, GCMS Urine NEGATIVE [facility] Lorazepam GCMS Urine NEGATIVE [facility] Alprazolam, GCMS Urine NEGATIVE [facility] Alphahydroxytriazolam, GCMS Ur NEGATIVE [facility] Temazepam, GCMS Urine NEGATIVE [facility] Alphahydroxymidazolam,GC MS Ur NEGATIVE [facility] Aminoclonazepam, GCMS Urine NEGATIVE [facility] Flurazepam Metabolite,GCMS Ur NEGATIVE [facility] Benzodiazepines Comments SEE NOTE [facility] Comment:This drug testing is for medical treatment only.Analysis was performed as non-forensic testing andthese results should be used only by healthcareproviders to render diagnosis or treatment, or tomonitor progress of medical conditions.LDT Notes:Confirmation tests were developed and their analyticalperformance characteristics have been determined by[employer]. It has not been cleared or approvedby the FDA. This assay has been validated pursuant tothe CLIA regulations and is used for clinical purposes.Healthcare Providers needing Interpretation assistance,please contact us at [phone] ( )M-F, 8am to 10pm ESTTHIS TEST PERFORMED AT:[facility] [address] [phone] DIRECTOR: VAUGHN BAUTISTA MD 01/04/2024 11:2 3 AM EDT 01/04/2024 1:53 PM EDT us Mily Alfredo COMMUNICATIONS TECHNOLOGIST LAB URINE ORDERABLES Final Res ult [facility] [address] [place] [address] [phone] documented in this encounter Visit Diagnoses Diagnosis Pain Generalized pain documented in this encounter Additional Health Concerns Assessment Noted Time PHQ-9 Depression Total Score: 2 12/22/19 24 2:00 PM EDT documented as of this encounter Care Teams Inventory Planner Relationship Specialty Start Date End Date Bharati Sroiano MD 230 [place] [address] PCP - General Family Medicine 06/14/18 Vasyl Boles MD [address] [place] [phone] Gastroenterology 06/20/24 [place] [address] [place] [address] Rheumatology 09/18/24 Babak Sparks MD [address] [place] [address] Endocrinology 10/17/24 documented as of this encounter
--- OUTSIDE RECORDS SUMMARY | 2025-02-27 17:52 | XMS_ITS | Encounter Summary ---
Author Organization [employer] Address 75 [facility] 7t [place] [address] Care Team Providers Care Training Executive Name Role Phone Bharati Soriano MD Primary Care Provider [phone]- [phone] Vasyl Boles MD Unavailable [phone] Amador Green MD Unavailable [phone] Babak Sparks MD Unavailable [phone] Reason for Visit * Reason Comments Med Refill Encounter Details Date Type Department Care Team (Late st Contact Info) Description 06/18/2023 Refill [facility] MEDICINE [address] [place], [place] [phone] Bharati Soriano MD 230 [place], [place] [phone] Dyslipidemia; Acquired hypothyroidism Social History Tobacco Use [...] 12:45 PM EDT Office Visit [facility] ADULT DENTAL [address] [place] [address] Denzel, Elo [address] [place] [address] documented as of this encounter Visit Diagnoses Diagnosis Dyslipidemia Other and unspecified hyperlipidemia Acquired hypothyroidism Unspecified hypothyroidism documented in this encounter Additional Health Concerns Assessment Noted Time PHQ-9 Depression Total Score: 0 10/16/19 23 2:27 PM EDT documented as of this encounter Care Teams Training Executive Relationship Specialty Start Date End Date Bharati Soriano MD 230 [place] [address] PCP - General Family Medicine 06/14/18 Vasyl Boles MD [address] [place] [address] [address] [place] [address] Gastroenterology 06/20/24 Amador Green MD [address] [place] [address] Rheumatology 09/18/24 Babak Sparks MD [address] [place] [address] Drive [address] [place] [address] Endocrinology 10/17/24 documented as of this encounter
--- OUTSIDE RECORDS SUMMARY | 2025-02-27 17:52 | XMS_ITS | Encounter Summary ---
Author Organization [employer] Address 75 [facility] 7t [place] [address] Care Team Providers Care Board Design Engineer Name Role Phone Bharati Soriano MD Primary Care Provider [phone]- [phone] Vasyl Boles MD Unavailable [phone] Amador Green MD Unavailable Babak Sparks MD Unavailable [phone] Reason for Visit * Reason Comments Med Refill Encounter Details Date Type Department Care Team (Late st Contact Info) Description 02/05/2025 Refill [facility] MEDICINE 230 [place], [place] [phone] Bharati Soriano MD 230 [place], [place] [phone] Primary hypertension; Chronic renal impairment, stage 2 [...] Description 03/14/2025 12:45 PM EDT Office Visit [facility] ADULT DENTAL 230 [place] [address] Denzel Elo 230 [place] [address] documented as of this encounter Visit Diagnoses Diagnosis Primary hypertension Unspecified essential hypertension Chronic renal impairment, stage 2 (mild) documented in this encounter Additional Health Concerns Assessment Noted Time PHQ-9 Depression Total Score: 0 12/07/19 25 11:15 AM EDT documented as of this encounter Care Teams Board Design Engineer Relationship Specialty Start Date End Date Bharati Soriano MD 230 [place] [address] PCP - General Family Medicine 06/14/18 Vasyl Boles MD [address] [place] [address] Gastroenterology 06/20/24 Amador Green MD [address] [place] [address] Rheumatology 09/18/24 Babak Sparks MD [address] [place] [address] Drive [address] [place] [address] Endocrinology 10/17/24 documented as of this encounter
--- OUTSIDE RECORDS SUMMARY | 2025-02-27 17:52 | XMS_ITS | Encounter Summary ---
Author Organization [employer] Address 75 [facility] 7t [place] [address] Care Team Providers Care Aircraft Delivery Checker Name Role Phone Bharati Soriano MD Primary Care Provider [phone]- [phone] Vasyl Boles MD Unavailable Amador Green MD Unavailable Babak Sparks MD Unavailable Reason for Visit * Reason Onset Date Comments Med Refill 01/31/2025 Encounter Details Date Type Department Care Team (Late st Contact Info) Description 01/31/2025 Telephone [facility] MEDICINE 230 [place], [place] [phone] hBarati Soriano MD 230 [place], [place] [phone] Med Refill Social History Tobacco Use Types [...] 5-325 MG tablet To be sent to: [facility]/pharmacy [address] [place] [address] documented in this encounter Plan of Treatment Upcoming Encounters Date Type Department Care Team (Late st Contact Info) Description 03/14/2025 12:45 PM EDT Office Visit [facility] ADULT DENTAL 230 [place], [place] [phone] Elo Mahoney 230 [place] [address] documented as of this encounter Visit Diagnoses Not on filedocumented in this encounter Additional Health Concerns Assessment Noted Time PHQ-9 Depression Total Score: 0 12/07/19 25 11:15 AM EDT documented as of this encounter Care Teams Aircraft Delivery Checker Relationship Specialty Start Date End Date Fluvanna, Bharati, MD 230 [place] [address] PCP - General Family Medicine 06/14/18 Vasyl Boles MD [address] [place] [address] [address] [place] [address] Gastroenterology 06/20/24 [place] [address] [place] [address] Rheumatology 09/18/24 Babak Sparks MD [address] [place] [address] Drive [address] [place] [address] Endocrinology 10/17/24 documented as of this encounter
--- OUTSIDE RECORDS SUMMARY | 2025-02-27 17:52 | XMS_ITS | Encounter Summary ---
Author Organization [employer] Address 75 [facility] 7t [place] [address] Care Team Providers Care Boatswain'S Mate Name Role Phone Bharati Soriano MD Primary Care Provider [phone]- [phone] Vasyl Boles MD Unavailable [phone] Amador Green MD Unavailable [phone] Babak Sparks MD Unavailable [phone] Reason for Visit * Reason Comments Med Refill Encounter Details Date Type Department Care Team (Late st Contact Info) Description 07/04/2023 Refill [facility] MEDICINE 230 [place], [place] [phone] Bharati Soriano MD 230 [place], [place] [phone] Acquired hypothyroidism; Dyslipidemia Social History Tobacco Use [...] 12:45 PM EDT Office Visit [facility] ADULT DENTAL 230 [place] [address] Denzel, Elo 230 [place] [address] documented as of this encounter Visit Diagnoses Diagnosis Acquired hypothyroidism Unspecified hypothyroidism Dyslipidemia Other and unspecified hyperlipidemia documented in this encounter Additional Health Concerns Assessment Noted Time PHQ-9 Depression Total Score: 0 10/16/19 23 2:27 PM EDT documented as of this encounter Care Teams Boatswain'S Mate Relationship Specialty Start Date End Date Bharati Soriano MD 230 [place] [address] PCP - General Family Medicine 06/14/18 Vasyl Boles MD [address] [place] [address] [address] [facility] [address] [place] [address] Gastroenterology 06/20/24 Amador Green MD [address] [place] [address] Rheumatology 09/18/24 Babak Sparks MD [address] [place] [address] Drive [address] [place] [address] Endocrinology 10/17/24 documented as of this encounter
--- OUTSIDE RECORDS SUMMARY | 2025-02-27 17:52 | XMS_ITS | Clinical Summary ---
Author Organization [facility] Facility Address [address] [place] [address] Care Team Providers Care Eclectic Doctor Name Role Phone Bharati Soriano MD Primary [...] Recently Relevant to Health Maintenance Care Teams Eclectic Doctor Relationship Specialty Start Date End Date Christie, Bharati Knight MD PCP - General 06/24/20
--- OUTSIDE RECORDS SUMMARY | 2025-02-27 17:52 | XMS_ITS | Encounter Summary ---
Author Organization [employer] Address 75 [facility] 7t [place] [address] Care Team Providers Care Security Strategist Name Role Phone Bharati Soriano MD Primary Care Provider [phone]- [phone] Vasyl Boles MD Unavailable [phone] Amador Green MD Unavailable Babak Sparsk MD Unavailable [phone] Reason for Visit * Reason Comments Med Refill Encounter Details Date Type Department Care Team (Late st Contact Info) Description 07/02/2023 Refill [facility] MEDICINE 230 [place], [place] [phone] Bharati Soriano MD 230 [place], [place] [phone] Social History Tobacco Use Types Packs/Day Years [...] 12:45 PM EDT Office Visit [facility] ADULT DENTAL [address] [place] [address] Denzel, Elo [address] [place] [address] documented as of this encounter Visit Diagnoses Not on filedocumented in this encounter Additional Health Concerns Assessment Noted Time PHQ-9 Depression Total Score: 0 10/16/19 23 2:27 PM EDT documented as of this encounter Care Teams Security Strategist Relationship Specialty Start Date End Date Bharati Soriano MD [address] [place] [address] PCP - General Family Medicine 06/14/18 Vasyl Boles MD [address] [place] [address] [address] [place] [address] Gastroenterology 06/20/24 Amador Green MD [address] [place] [address] Rheumatology 09/18/24 Babak Sparks MD [address] [place] [address] Drive [address] [place] [address] Endocrinology 10/17/24 documented as of this encounter
--- OUTSIDE RECORDS SUMMARY | 2025-02-27 17:52 | XMS_ITS | Encounter Summary ---
Author Organization [employer] Address 75 [facility] 7t [place] [address] Care Team Providers Care Hand Bender Name Role Phone Bharati Soriano MD Primary Care Provider [phone]- [phone] Vasyl Boles MD Unavailable Amador Green MD Unavailable [phone] Babak Sparks MD Unavailable [phone] Encounter Details Date Type Department Care Team (Late st Contact Info) Description 05/30/2024 Telephone [facility] MEDICINE 230 [place], [place] [phone] Bharati Soriano MD 230 [place], [place] [phone] Social History Tobacco Use Types Packs/Day Years [...] Visit [facility] ADULT DENTAL [address] [place] [address] Denzel, Elo 230 [place] [address] documented as of this encounter Visit Diagnoses Not on filedocumented in this encounter Additional Health Concerns Assessment Noted Time PHQ-9 Depression Total Score: 1 01/14/20 24 10:00 AM EDT documented as of this encounter Care Teams Hand Bender Relationship Specialty Start Date End Date Bharati Soriano MD 230 [place] [address] PCP - General Family Medicine 06/14/18 Vasyl Boles MD [address] [place] [address] [place] [address] Gastroenterology 06/20/24 Amador Green MD [address] [place] [address] Rheumatology 09/18/24 Babak Sparks MD [address] [facility] [address] [place] [address] Endocrinology 10/17/24 documented as of this encounter
--- OUTSIDE RECORDS SUMMARY | 2025-02-27 17:52 | XMS_ITS | Clinical Summary ---
Author Organization [facility] Address [address] [place] [address] Phone Care Team Providers Care Rn Immunology Name Role Phone Bharati Soriano MD Primary [...] for pain (specific location in comments). {PARTIAL FILL:[id number]} Active albuterol 90 mcg/actuation inhaler Inhale 2 [...] B [place] PART A & [facility] * Guarantor: Felipa Finkertad Account Type Relation to Patient Date of Phone Billing Address Personal/Family Self 1955 [address] [place] [address] MEDICARE PART A & B [facility] Care Teams Rn Immunology Relationship Specialty Start Date End Date Denhoff, Bharati Spann MD [address] [place] [address] PCP - General Family Medicine 01/02/19 Additional Source Comments The information contained in this document represents components of the legal health record. It is not the complete legal health record.[facility]
--- OUTSIDE RECORDS SUMMARY | 2025-02-27 17:52 | XMS_ITS | Encounter Summary ---
Author Organization [employer] Address [address] [place] [address] 7t [place] [address] Care Team Providers Care Electrician Substation Name Role Phone Bharati Soriano MD Primary Care Provider + [phone] Vasyl Boles MD Unavailable [phone] Amador Green MD Unavailable [phone] Babak Sparks MD Unavailable [phone] Encounter Details Date Type Department Care Team (Latest Contact Info) Description 08/23/2019 Abstract [facility] CONVERSIONS Dental, Provider, DDS Social History Tobacco [...] Description 03/14/2025 12:45 PM EDT Office Visit [facility] ADULT DENTAL 230 [place] [address] Denzel Elo [address] [place] [address] documented as of this encounter Visit Diagnoses Not on filedocumented in this encounter Care Teams Electrician Substation Relationship Specialty Start Date End Date Bharati Soriano MD 230 [place], [place] [phone] PCP - General Family Medicine 06/14/18 Vasyl Boles MD [address] [place] [address] [address] [place] [phone] Gastroenterology 06/20/24 Amador Green MD [address] [place] [address] Rheumatology 09/18/24 Babak Sparks MD [address] [place] [address] Drive [address] [place] [address] Endocrinology 10/17/24 documented as of this encounter
--- OUTSIDE RECORDS SUMMARY | 2025-02-27 17:52 | XMS_ITS | Encounter Summary ---
Author Organization [employer] Address 75 [facility] 7t [place] [address] Care Team Providers Care Blending Plant Operator Name Role Phone Bharati Soriano MD Primary Care Provider + [phone] Vasyl Boles MD Unavailable Amador Green MD Unavailable Babak Sparks MD Unavailable [phone] Encounter Details Date Type Department Care Team (Latest Contact Info) Description 06/29/2018 Abstract [facility] CONVERSIONS Dental, Provider, DDS Social History [...] 03/14/2025 12:45 PM EDT Office Visit [facility] ADULT DENTAL 230 [place] [address] Denzel Elo [address] [place] [address] documented as of this encounter Visit Diagnoses Not on filedocumented in this encounter Care Teams Blending Plant Operator Relationship Specialty Start Date End Date Bharati Soriano MD 230 [place], [place] [phone] PCP - General Family Medicine 06/14/18 Vasyl Boles MD [address] [place] [address] [address] [place] [phone] Gastroenterology 06/20/24 Amador Green MD [address] [place] [address] Rheumatology 09/18/24 Babak Sparks MD [address] [place] [address] Drive [address] [place] [address] Endocrinology 10/17/24 documented as of this encounter
--- OUTSIDE RECORDS SUMMARY | 2025-02-27 17:52 | XMS_ITS | Encounter Summary ---
Author Organization [employer] Address 75 [facility] 7t [place] [address] Care Team Providers Care Firmware Manager Name Role Phone Bharati Soriano MD Primary Care Provider +[phone]- [phone] Vasyl Boles MD Unavailable [phone] Amador Green MD Unavailable Babak Sparks MD Unavailable [phone] Reason for Visit * Reason Comments Med Refill Encounter Details Date Type Department Care Team (Late st Contact Info) Description 05/10/[address] [facility] MEDICINE [address] [place], [place] [phone] Bharati Soriano MD [address] [place], [place] [phone] Dyslipidemia; Other osteoporosis without current pathological fracture; [...] [facility] [address] [place] [address] Denzel, Elo [address] [place] [address] documented as of this encounter Visit Diagnoses Diagnosis Dyslipidemia Other and unspecified hyperlipidemia Other osteoporosis without current pathological fracture Mild intermittent asthma, unspecified whether complicated documented in this encounter Additional Health Concerns Assessment Noted Time PHQ-9 Depression Total Score: 1 01/14/20 24 10:00 AM EDT documented as of this encounter Care Teams Firmware Manager Relationship Specialty Start Date End Date Bharati Soriano MD [address] [place] [address] PCP - General Family Medicine 06/14/18 Vasyl Boles MD [address] [place] [address] [place] [phone] Gastroenterology 06/20/24 Amador Green MD [address] [place] [address] Rheumatology 09/18/24 Babak Sparks MD [address] [place] [address] [address] [place] [address] Endocrinology 10/17/24 documented as of this encounter
--- OUTSIDE RECORDS SUMMARY | 2025-02-27 17:52 | XMS_ITS | Encounter Summary ---
Author Organization [employer] Address 75 [facility] 7t [place] [address] Care Team Providers Care Quality Assurance Monitor Body Name Role Phone Bharati Soriano MD Primary Care Provider [phone]- [phone] Vasyl Boles MD Unavailable [phone] Amador Green MD Unavailable [phone] Babak Sparks MD Unavailable [phone] Reason for Visit * Reason Onset Date Comments Med Refill 06/01/2023 Encounter Details Date Type Department Care Team (Late st Contact Info) Description 06/01/2023 Telephone [facility] MEDICINE 230 [place], [place] [phone] Bharati Soriano MD 230 [place], [place] [phone] Med Refill Social History Tobacco Use Types Packs/Day Years Used Date Smoking Tobacco: Never Passive Smoke Exposure: Never Smokeless Tobacco: Never Depression Answer Date Recorded Patient Health Questionnaire-9 Score 0 10/15/2022 Housing Stability Answer Date Recorded What is your housing situation today? I have anitacuong naaya 03/29/[address] you li [...] 03/14/2025 12:45 PM EDT Office Visit [facility] ADULT DENTAL 230 [place] [address] Denzel, Elo 230 [place] [address] documented as of this encounter Visit Diagnoses Not on filedocumented in this encounter Additional Health Concerns Assessment Noted Time PHQ-9 Depression Total Score: 0 10/16/19 23 2:27 PM EDT documented as of this encounter Care Teams Quality Assurance Monitor Body Relationship Specialty Start Date End Date Bharati Soriano MD 230 [place] [address] PCP - General Family Medicine 06/14/18 Vasyl Boles MD [address] [place] [address] [place] [phone] Gastroenterology 06/20/24 Amador Green MD [address] [place] [address] Rheumatology 09/18/24 Babak Sparks MD [address] [place] [address] [place] [address] Endocrinology 10/17/24 documented as of this encounter
--- OUTSIDE RECORDS SUMMARY | 2025-02-27 17:52 | XMS_ITS | Encounter Summary ---
Author Organization [employer] Address 75 [facility] 7t [place] [address] Care Team Providers Care Packing Shed Supervisor Name Role Phone Bharati Soriano MD Primary Care Provider [phone]- [phone] Vasyl Boles MD Unavailable Amador Green MD Unavailable Babak Sparks MD Unavailable Reason for Visit * Reason Onset Date Comments Med Refill 10/31/2024 Encounter Details Date Type Department Care Team (Late st Contact Info) Description 10/31/2024 Telephone [facility] MEDICINE 230 [place], [place] [phone] Bharati Soriano MD 230 [place], [place] [phone] Med Refill Social History Tobacco Use Types [...] * Telephone Encounter - Kelechi Loyd - 10/31/2024 11:30 AM EDT TC from pt requesting medication refill. Medications needing refill: oxyCODONE-acetaminophen (Percocet) 5-325 MG tablet To be sent to: [facility]/pharmacy #[id number] [place] [address] documented in this encounter Plan of Treatment Upcoming Encounters Date Type Department Care Team (Late st Contact Info) Description 03/14/2025 12:45 PM EDT Office Visit [facility] ADULT DENTAL 230 [place] [address] Elo Mahoney 230 [place] [address] documented as of this encounter Visit Diagnoses Not on filedocumented in this encounter Additional Health Concerns Assessment Noted Time PHQ-9 Depression Total Score: 1 01/14/20 24 10:00 AM EDT documented as of this encounter Care Teams Packing Shed Supervisor Relationship Specialty Start Date End Date Bharati Soriano MD [address] [place] [address] PCP - General Family Medicine 06/14/18 Vasyl Boles MD [address] [place] [address] DR [facility] [address] [place] [phone] Gastroenterology 06/20/24 Amador Green MD [address] [place] [address] Rheumatology 09/18/24 Babak Sparks MD [address] [place] [address] Drive [address] [place] [address] Endocrinology 10/17/24 documented as of this encounter
--- OUTSIDE RECORDS SUMMARY | 2025-02-27 17:52 | XMS_ITS | Encounter Summary ---
Author Organization [employer] Address 75 [facility] 7t [place] [address] Care Team Providers Care Tank Pumper Panelboard Name Role Phone Bharati Soriano MD Primary Care Provider [phone]- [phone] Vasyl Boles MD Unavailable [phone] Amador Green MD Unavailable Babak Sparks MD Unavailable [phone] Reason for Visit * Reason Onset Date Comments Med Refill 05/03/2023 Encounter Details Date Type Department Care Team (Late st Contact Info) Description 05/03/2023 Telephone [facility] MEDICINE 230 [place], [place] [phone] Bharati Soriano MD [address] [place], [place] [phone] Med Refill Social History Tobacco Use Types [...] 12:45 PM EDT Office Visit [facility] ADULT DENTAL 230 [place] [address] Denzel, Elo 230 [place] [address] documented as of this encounter Visit Diagnoses Not on filedocumented in this encounter Additional Health Concerns Assessment Noted Time PHQ-9 Depression Total Score: 0 10/16/19 23 2:27 PM EDT documented as of this encounter Care Teams Tank Pumper Panelboard Relationship Specialty Start Date End Date Bharati Soriano MD [address] [place] [address] PCP - General Family Medicine 06/14/18 Vasyl Boles MD [address] [place] [address] [place] [phone] Gastroenterology 06/20/24 Amador Green MD [address] [place] [address] Rheumatology 09/18/24 Babak Sparks MD [address] [place] [address] [address] [place] [address] Endocrinology 10/17/24 documented as of this encounter
--- OUTSIDE RECORDS SUMMARY | 2025-02-27 17:52 | XMS_ITS | Encounter Summary ---
Author Organization [employer] Address 75 [facility] 7t [place] [address] Care Team Providers Care Intelligence Research Specialist Name Role Phone Bharati Soriano MD Primary Care Provider [phone]- [phone] Vasyl Boles MD Unavailable [phone] Amador Green MD Unavailable [phone] Babak Sparks MD Unavailable [phone] Reason for Visit * Reason Onset Date Comments Med Refill 05/03/2024 Encounter Details Date Type Department Care Team (Late st Contact Info) Description 05/03/2024 Telephone [facility] MEDICINE 230 [place], [place] [phone] Bharati Soriano MD [address] [place], [place] [phone] Med Refill Social History Tobacco Use Types [...] tablet To be sent to: [facility]/pharmacy #[id number] [place] [address] documented in this encounter Plan of Treatment Upcoming Encounters Date Type Department Care Team ([facility] st Contact Info) Description 03/14/2025 12:45 PM EDT Office Visit [facility] ADULT DENTAL 230 [place] [address] Elo Mahoney 230 [place] [address] documented as of this encounter Visit Diagnoses Not on filedocumented in this encounter Additional Health Concerns Assessment Noted Time PHQ-9 Depression Total Score: 1 01/14/20 24 10:00 AM EDT documented as of this encounter Care Teams Intelligence Research Specialist Relationship Specialty Start Date End Date Bharati Soriano MD [address] [place] [address] PCP - General Family Medicine 06/14/18 Vasyl Boles MD [address] [place] [address] DR [facility] [address] [place] [address] Gastroenterology 06/20/24 Amador Green MD [address] [place] [address] Rheumatology 09/18/24 Babak Sparks MD [address] [place] [address] Drive [address] [place] [address] Endocrinology 10/17/24 documented as of this encounter
== END 2025-02-27 14:25 | disposition home or self-care (01) ==
LOC: HO.ENCR 14:03
PROVIDERS: PCP Family Medicine; Visit Provider Internal Medicine Endocrinology, Diabetes & Metabolism
DX: M81.0 Age-related osteoporosis without current pathological fracture (principal)
CPT/HCPCS: 99213

== ENCOUNTER → 2025-02-27 14:03 | Outpatient (BNVA) | payer MEDICARE, MEDICAID, SELFPAY | PROVIDERS: PCP Family Medicine; Visit Provider Internal Medicine Endocrinology, Diabetes & Metabolism | DX: M81.0 Age-related osteoporosis without current pathological fracture (principal) | CPT/HCPCS: 99212 ==

== ENCOUNTER 2025-05-08 10:55 | Outpatient (REF) | payer MEDICARE, MEDICAID, SELFPAY ==
--- OUTSIDE RECORDS SUMMARY | 2025-05-08 11:00 | XMS_ITS | Encounter Summary ---
Author Organization [employer] Address 75 [facility] 7t [place] [address] Care Team Providers Care Pharmacognosy Teacher Name Role Phone Bharati Soriano MD Primary Care Provider [phone]- [phone] Vasyl Boles MD Unavailable Amador Green MD Unavailable Babak Sparks MD Unavailable [phone] Aneudy Mchugh Unavailable [phone] Encounter Details Date Type Department Care Team (Late st Contact Info) Description 05/08/2025 11:00 AM EST Office Visit [facility] MEDICINE [address] [place] [address] Mily Alfredo, HAND BRAILLE TRANSCRIBER [address] [place] [address] Chronic low back pain, unspecified back pain laterality, unspecified whether sciatica present (Primary Dx); 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 Social History [...] Care Team (Late st Contact Info) Description 08/07/2025 11:00 AM EST Office Visit [facility] MEDICINE 230 [place] [address] 09/13/2025 1:30 PM EDT Office Visit [facility] ADULT DENTAL 230 [place] [address] Denzel, Elo [address] [place] [address] Scheduled Orders Name Type Priority Associated Diagnoses Orde r Schedule Drug Monitoring, Benzodiazepines, Quantitative, Urine Lab Routine Chronic low back pain, unspecified back pain laterality, unspecified whether sciatica present Ordered: 05/08/2025 Drug Monitoring, Fentanyl, with Confirmation, Urine Lab Routine Chronic low back pain, unspecified back pain laterality, unspecified whether sciatica present Ordered: 05/08/2025 documented as of this encounter Procedures Procedure Name Priority Date/Time Associated Diagnosis Comments POCT MADHU-14 URINE DRUG SCREEN Routine 05/08/2025 11:59 AM EST Chronic low back pain, unspecified back pain laterality, unspecified whether sciatica present documented in this encounter Results * (ABNORMAL) POCT MADHU-14 Urine Drug Screen (05/08/2025 11:59 AM EST) THC Positive(A) Negative Cocaine Screen, Urine Negative Negative Opiate Screen, Urine Negative Negative Methamphetamine Screen Urine Negative Negative Amphetamine Screen, Urine Negative Negative Benzodiazepines Screen, Urine Positive(A) Negative Barbiturate Screen, Urine Negative Negative Methadone Screen, Urine Negative Negative Buprenophine Screen, Urine Negative Negative TCA, Urine Negative Negative MDMA Urine Negative Negative ng/mL Oxycodone Screen, Urine Positive(A) Negative Comment:Rx Phencyclidine (PCP), Urine Negative Negative Propoxyphene, Urine Negative Negative Fentanyl, Urine Positive(A) Negative Urine Urine specimen obtained by clean catch procedure / Unknown 05/08/2025 11:59 AM EST Narrative Jocelyn Randall RN - 05/08/2025 11:59 AM EST .UTOX cup Lot#[id number] Exp. 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 documented in this encounter Additional Health Concerns Assessment Noted Time PHQ-9 Depression Total Score: 0 12/07/19 11:15 AM EDT documented as of this encounter Care Teams Pharmacognosy Teacher Relationship Specialty Start Date End Date Bharati Soriano MD 230 [place] [address] PCP - General Family Medicine 06/14/18 Vasyl Boles MD [address] [place] [phone] Gastroenterology 06/20/24 Amador Green MD [address] [place] [phone] Rheumatology 09/18/24 Babak Sparks MD [address] [place] [address] Endocrinology 10/17/24 Aneudy Mchugh [address] [facility] [place] [address] Orthopaedic Surgery 03/26/25 documented as of this encounter
--- OUTSIDE RECORDS SUMMARY | 2025-05-08 17:36 | XMS_ITS | Encounter Summary ---
Author Organization [employer] Address [address] [place] [address] 7 [place] [address] Care Team Providers Care Inflated Ball Molder Name Role Phone Bharati Soriano MD Primary Care Provider [phone] Vasyl Boles MD Unavailable Amador Geren MD Unavailable Babak Sparks MD Unavailable Aneudy Mchugh Unavailable [phone] Encounter Details Date Type Department Care Team (Latest Contact Info) Description 03/26/2021 Abstract [facility] CONVERSIONS Dental, Provider, DDS Social History [...] Description 08/07/2025 11:00 AM EST Office Visit [facility] MEDICINE 230 [place], [place] [phone] 09/13/2025 1:30 PM EDT Office Visit [facility] ADULT DENTAL 230 [place], [place] [phone] Elo Mahoney 230 [place], [place] [phone] documented as of this encounter Visit Diagnoses Not on filedocumented in this encounter Care Teams Inflated Ball Molder Relationship Specialty Start Date End Date Bharati Soriano MD 230 [place] [address] PCP - General Family Medicine 06/14/18 Vasyl Boles MD [address] [place] [address] [address] [place] [address] Gastroenterology 06/20/24 [place] [address] [place] [address] Rheumatology 09/18/24 Babak Sparks MD [address] [place] [address] Drive [address] [place] [address] Endocrinology 10/17/24 Aneudy Mchugh [address] [facility] [place] [address] Orthopaedic Surgery 03/26/25 documented as of this encounter
--- OUTSIDE RECORDS SUMMARY | 2025-05-08 17:36 | XMS_ITS | Encounter Summary ---
Author Organization [employer] Address [address] [place] [address] 7t [place] [address] Care Team Providers Care Operating Engineer Apprentice Name Role Phone Bharati Soriano MD Primary Care Provider [phone] Vasyl Boles MD Unavailable [phone] Amador Green MD Unavailable Babak Sparks MD Unavailable Aneudy Mchugh Unavailable [phone] Reason for Visit * Reason Onset Date Comments requesting a call back 09/07/2022 Encounter Details Date Type Department Care Team (Late st Contact Info) Description 09/07/2022 Telephone [facility] MEDICINE [address] [place], [place] [phone] Bharati Soriano MD [address] [place], [place] [phone] requesting a call back Social History Tobacco [...] Description 08/07/2025 11:00 AM EST Office Visit [facility] MEDICINE [address] [place] [address] 09/13/2025 1:30 PM EDT Office Visit [facility] ADULT DENTAL [address] [place] [address] Al Mahoneyaris [address] [place] [address] documented as of this encounter Visit Diagnoses Not on filedocumented in this encounter Care Teams Operating Engineer Apprentice Relationship Specialty Start Date End Date Bharati Soriano MD [address] [place] [address] PCP - General Family Medicine 06/14/18 Vasyl Boles MD [address] [place] [address] DR [facility] [address] [place] [address] Gastroenterology 06/20/24 Amador Green MD [address] [place] [address] Rheumatology 09/18/24 Babak Sparks MD [address] [place] [address] Drive [address] [place] [address] Endocrinology 10/17/24 Aneudy Mchugh [address] [place] [address] Orthopaedic Surgery 03/26/25 documented as of this encounter
--- OUTSIDE RECORDS SUMMARY | 2025-05-08 17:36 | XMS_ITS | Encounter Summary ---
Author Organization [employer] Address 75 [facility] 7t [place] [address] Care Team Providers Care Jig Hand Name Role Phone Bharati Soriano MD Primary Care Provider [phone] Vasyl Boles MD Unavailable [phone] Amador Green MD Unavailable [phone] Babak Sparks MD Unavailable [phone] Aneudy Mchugh Unavailable [phone] Encounter Details Date Type Department Care Team (Late st Contact Info) Description 06/12/2022 Orders Only [facility]EDS [address] [place], [place] [phone] Leena Verdin ANP 230 [place] [address] Social History Tobacco Use Types Packs/Day Years [...] Description 08/07/2025 11:00 AM EST Office Visit [facility] MEDICINE [address] [place] [address] [phone] 09/13/2025 1:30 PM EDT Office Visit [facility] ADULT DENTAL [address] [place] [address] Elo Mahoney 230 [place] [address] documented as of this encounter Visit Diagnoses Not on filedocumented in this encounter Care Teams Jig Hand Relationship Specialty Start Date End Date Bharati Soriano MD 230 [place] [address] PCP - General Family Medicine 06/14/18 Vasyl Boles MD [address] [place] [address] DR [facility] [address] [place] [phone] Gastroenterology 06/20/24 [place] [address] [place] [address] Rheumatology 09/18/24 Babak Sparks MD [address] [place] [address] Drive [address] [place] [address] Endocrinology 10/17/24 Aneudy Mchugh [address] [place] [address] Orthopaedic Surgery 03/26/25 documented as of this encounter
--- OUTSIDE RECORDS SUMMARY | 2025-05-08 17:36 | XMS_ITS | Encounter Summary ---
Author Organization [employer] Address 75 [facility] 7t [place] [address] Care Team Providers Care Pot Reliner Name Role Phone Bharati Soriano MD Primary Care Provider [phone] Vasyl Boles MD Unavailable Amador Green MD Unavailable Babak Sparks MD Unavailable [phone] Aneudy Mchugh Unavailable [phone] Reason for Visit * Reason Onset Date Comments Med Refill 12/01/2024 Encounter Details Date Type Department Care Team (Late st Contact Info) Description 12/01/2024 Telephone [facility] MEDICINE 230 [place], [place] [phone] Bharati Soriano MD [address] [place], [place] [phone] Med Refill Social History Tobacco Use Types [...] 5-325 MG table To be sent to: [facility]/pharmacy #[address] [place] [address] - [address] [place] [address] documented in this encounter Plan of Treatment Upcoming Encounters Date Type Department Care Team (Late st Contact Info) Description 08/07/2025 11:00 AM EST Office Visit [facility] MEDICINE 230 [place], [place] [phone] 09/13/2025 1:30 PM EDT Office Visit [facility] ADULT DENTAL 230 [place] [address] Elo Mahoney 230 [place] [address] documented as of this encounter Visit Diagnoses Not on filedocumented in this encounter Additional Health Concerns Assessment Noted Time PHQ-9 Depression Total Score: 1 01/14/20 24 10:00 AM EDT documented as of this encounter Care Teams Pot Reliner Relationship Specialty Start Date End Date Bharati Soriano MD 230 [place] [address] PCP - General Family Medicine 06/14/18 Vasyl Boles MD [address] [place] [address] [address] [place] [address] Gastroenterology 06/20/24 [place] [address] [place] [address] Rheumatology 09/18/24 Babak Sparks MD [address] [place] [address] Drive [address] [place] [address] Endocrinology 10/17/24 Aneudy Mchugh [address] [place] [address] Orthopaedic Surgery 03/26/25 documented as of this encounter
--- OUTSIDE RECORDS SUMMARY | 2025-05-08 17:36 | XMS_ITS | Encounter Summary ---
Author Organization [employer] Address [address] [place] [address] 7t [place] [address] Care Team Providers Care Plaster Machine Operator Name Role Phone Bharati Soriano MD Primary Care Provider [phone] Vasyl Boles MD Unavailable Amador Green MD Unavailable [phone] Babak Sparks MD Unavailable Aneudy Mchugh Unavailable [phone] Reason for Visit * Reason Onset Date Comments Medication Question 06/12/2022 Encounter Details Date Type Department Care Team (Late st Contact Info) Description 06/12/2022 Telephone [facility] MEDICINE 230 [place], [place] [phone] Bharati Soriano MD 230 [place], [place] [phone] Medication Question Social History Tobacco Use Types [...] [place] to [place] place [place] . Ptstates [facility] years [facility] . Pt would like to know if she will be able to get meds before the long weekend ? documented in this encounter Plan of Treatment Upcoming Encounters Date Type Department Care Team (Late st Contact Info) Description 08/07/2025 11:00 AM EST Office Visit [facility] MEDICINE 230 [place] [address] 09/13/2025 1:30 PM EDT Office Visit [facility] ADULT DENTAL 230 [place] [address] Elo Mahoney 230 [place] [address] documented as of this encounter Visit Diagnoses Diagnosis Pain Generalized pain documented in this encounter Care Teams Plaster Machine Operator Relationship Specialty Start Date End Date Bharati Soriano MD 230 [place] [address] PCP - General Family Medicine 06/14/18 Vasyl Boles MD [address] [place] [address] [address] [place] [address] Gastroenterology 06/20/24 [place] [address] [place] [address] Rheumatology 09/18/24 Babak Sparks MD [address] [place] [address] Drive [address] [place] [address] Endocrinology 10/17/24 Aneudy Mchugh [address] [place] [address] Orthopaedic Surgery 03/26/25 documented as of this encounter
--- OUTSIDE RECORDS SUMMARY | 2025-05-08 17:36 | XMS_ITS | Encounter Summary ---
Author Organization [facility] Address [address] [place] [address] [address] [place] [address] Care Team Providers Care Treater Helper Name Role Phone Bharati Soriano MD Primary Care Provider [phone] Vasyl Boles MD Unavailable [phone] Amador Green MD Unavailable [phone] Babak Sparks MD Unavailable Aneudy Mchugh Unavailable [phone] Encounter Details Date Type Department Care Team (Late st Contact Info) Description 08/11/[address] [facility] [address] [place] [id number] Bharati Soriano MD [address] [place] [id number] Social History Tobacco Use Types Packs/Day Years [...] Description 08/07/2025 11:00 AM EST Office Visit [facility] [address] [place] [id number] 09/13/2025 1:30 PM EDT Office Visit [facility] [address] [place] [phone] Elo Mahoney [address] [place] [address] documented as of this encounter Procedures Procedure Name Priority Date/Time Associated Diagnosis Comments PAP SMEAR Routine 03/14/2015 12:00 AM EDT documented in this encounter Results * Pap Smear (03/14/2015 12:00 AM EDT) Swab us Historical Provider LAB CYTOLOGY ORDERABLES F inal Result IMAGING documented in this encounter Visit Diagnoses Not on filedocumented in this encounter Care Teams Treater Helper Relationship Specialty Start Date End Date Bharati Soriano MD [address] [place] [address] PCP - General Family Medicine 06/14/18 Vasyl Boles MD [address] [place] [address] [address] [place] [address] Gastroenterology 06/20/24 Amador Green MD [address] [place] [address] Rheumatology 09/18/24 Babak Sparks MD [address] [place] [address] Drive [address] [place] [address] Endocrinology 10/17/24 Aneudy Mchugh [address] [facility] [place] [address] Orthopaedic Surgery 03/26/25 documented as of this encounter
--- OUTSIDE RECORDS SUMMARY | 2025-05-08 17:36 | XMS_ITS | Clinical Summary ---
Author Organization [employer] Address [address] [facility] [address] [place] [address] Care Team Providers Care Shop Foreman Name Role Phone Bharati Soriano MD Primary Care Provider [phone] Vasyl Boles MD Unavailable Amador Green MD Unavailable Babak Sparks MD Unavailable [phone] Aneudy Mchugh Unavailable [phone] Allergies Active Allergy Reactions Criticality Noted Date [...] SLE type, unspecified organ involvement status (CMS/HCC) (HCC) Take 1 tablet by mouth in the morning. 021 Active Diaper Rash Products (A+D Diaper Rash) creamIndications: Chronic diarrhea Apply 1 application topically if needed in the morning and at bedtime (prn rash). 45 g 3 023 Active levothyroxine (Synthroid, Levoxyl) 25 MCG tabletIndications :Hypothyroidism, unspecified type Take 25 mcg by mouth. 018 Active amLODIPine (Norvasc) 10 MG tabletIndications :Hypertension, [...] for 7 nights 45 g 025 Active albuterol (Ventolin HFA) 108 (90 Base) MCG/ACT inhalerIndication s:Mild intermittent asthma, unspecified whether complicated TAKE 2 PUFFS BY MOUTH EVERY 4-6 HOURS NEEDED 18 g 1 025 Active levothyroxine (Synthroid, Levoxyl) 25 MCG tabletIndications :Acquired hypothyroidism TAKE 1 TABLET BY MOUTH EVERY DAY 90 tablet 3 025 Active lidocaine (Lidoderm) 5 % patchIndications: Chronic low back pain, unspecified back pain laterality, unspecified whether sciatica present APPLY 1 PATCH TOPICALLY ONCE PER DAY. REMOVE & DISCARD WITHIN 12 HOURS OR DIRECTED BY MD. 15 patch 2 025 Active carbamide peroxide (Debrox) 6.5 % otic solutionIndicatio ns:Excessive cerumen in left ear canal 5 drops left year at bedtime for 3 nights 30 mL 025 Active betamethasone, augmented, (Diprolene) 0.05 % lotionIndications :Dermatitis APPLY TOPICALLY TWICE A DAY NEEDED FOR RASH 30 mL 025 Active naloxone (Narcan) 4 mg/0.1 mL nasal spray Administer 1 spray (4 mg) into affected nostril(s) if needed for opioid reversal. May repeat every 2-3 minutes if needed, alternating nostrils, until medical assistance becomes available. 2 each 2 025 2025 Active losartan (Cozaar) 25 MG tabletIndications :Primary hypertension,Storage Manager mayte renal impairment, stage 2 (mild) TAKE 1 TABLET BY MOUTH TWICE A DAY 180 tablet 3 Active traZODone (Desyrel) 100 MG tabletIndications :Insomnia, unspecified type TAKE 1 TABLET BY MOUTH AT BEDTIME 90 tablet 3 Active omeprazole (PriLOSEC) [address] capsuleIndication s:Gastroesophagea l reflux disease without esophagitis TAKE 1 CAP (20 MG) BY MOUTH BEFORE BREAKFAST DO NOT CRUSH, CHEW, OR SPLIT 90 capsule 1 Active loperamide (Imodium) 2 MG capsuleIndication s:Chronic diarrhea TAKE 1 CAPSULE (2 MG) BY MOUTH EVERY 6 (SIX) HOURS IF NEEDED FOR DIARRHEA. 30 capsule Active oxyCODONE-acetami nophen (Percocet) 5-325 MG tabletIndications :Lumbar radiculopathy Take 1 tablet by mouth every 6 (six) hours if needed for severe pain for up to 14 days. 56 tablet 2024 Active loperamide (Imodium) 2 MG capsuleIndication s:Chronic diarrhea TAKE 1 CAPSULE (2 MG) BY MOUTH EVERY 6 (SIX) HOURS IF NEEDED FOR DIARRHEA. 30 capsule 025 2024 Discontinued oxyCODONE-acetami nophen (Percocet) 5-325 MG tabletIndications :Lumbar radiculopathy Take 1 tablet by mouth every 6 (six) hours if needed for severe pain for up to 14 days. 56 tablet 025 2024 Discontinued(R eorder (will not trigger notification to Pharmacy)) oxyCODONE-acetami nophen (Percocet) 5-325 MG tabletIndications :Lumbar radiculopathy Take 1 tablet by mouth every 6 (six) hours if needed for severe pain for up to 14 days. 56 tablet 025 2024 Discontinued(R eorder (will not trigger notification to Pharmacy)) Active Problems Problem Noted Date Diagnosed Date Right anterior shoulder pain 03/26/2025 Overview (03/26/2025): -seen by Aneudy Mchugh PA-C with [facility], [facility] 03/21/25s/p cortisone injection Numbness and tingling of both legs below [...] talk and established initial goals with patient. intermediate card tender (current) use of opiate analgesic 03/15 Overview (02/20/2025): Medication: Percocet 5-325mg Q6H PRN Indication: lumbar radiculopathy Last ASSISTANT MERCHANDISE MANAGER Agreement: 07/11/24 Tier: 3 (ASSISTANT MERCHANDISE MANAGER every 4-6 months) Assessment & Plan (02/20/2025 [...] 5-325mg Q6H PRN Indication: lumbar radiculopathy Last ASSISTANT MERCHANDISE MANAGER Agreement: 07/11/24 Assessment & Plan (09/19/2024 2:07 PM EDT): Timeline: - 09/19/24: Group - pill count as expected. Utox positive BZO, confirmatory testing sent out Assessment & Plan (07/13/2024 4:18 PM EST): Medication: Percocet 5-325mg Q6H PRN Indication: lumbar radiculopathy Last ASSISTANT MERCHANDISE MANAGER Agreement: 08/24/23 Assessment & Plan (04/04/2024 5:26 [...] Overview (07/12/2024): Lab Results Component Value Date [id number] 35.8 04/26/2024 Insomnia 12/22/2023 Other specified health status 04/24/2023 Overview (07/12/2024): -next comprehensive annual evaluation due after 07/12/25 -eye care facilitated by [facility] -dental home is [facility] -Health care proxy given and filed 12/22/23 Assessment & Plan (07/12/2024 4:10 PM EST): -next comprehensive annual evaluation due after 07/12/25 -eye care facilitated by [facility] -dental home is [facility] -Health care proxy given and filed 12/22/23 Assessment & Plan (12/22/2023 2:27 PM EDT): -next physical exam due after 05/12/2024 -eye care facilitated by [facility] -dental home is [facility] -Health care proxy given and filed [...] of acute collitis Lupus (systemic lupus erythematosus) ([facility]/HCC) 1 07/08/2021 Overview (09/18/2024): Diagnoses 04/2018 baed on arthralgia, Raynauds, Sicca symptoms, positive LUISITO, positive Sm and DOOR LINER HELPER and leukopenia. Followed by rheumatology. Lat note from Amador Green from 09/14/24 reviewed. 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 Followed by rheumatology. Lat note from Amador Green from 09/14/24 reviewed. 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 Followed by rheumatology. Lat note from Dr. Flores 04/06/23 reviewed. 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 Followed by rheumatology. Lat note from Dr. Flores 04/06/23 reviewed. -Plaquenil 200mg BID started 04/2018 -continue regular eye exams -s/p flu vaccine 02/2020 done at [facility] 04/2019 Assessment & Plan (05/12/2023 10:17 AM EST): Diagnoses 04/2018 baed on arthralgia, Raynauds, Sicca symptoms, positive LUISITO, positive Sm and DOOR LINER HELPER and leukopenia. Followed by rheumatology. Lat note from Dr. Flores 04/06/23 reviewed. 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 Followed by rheumatology. -Plaquenil 200mg BID started 04/2018 -continue regular eye exams -s/p flu vaccine 02/2020 done at [facility] 04/2019 Chronic diarrhea 05/08/2022 Osteoporosis 05/08/2022 Overview (03/01/2025): Final Menstrual Period: > 10 years ago [...] is elevated, may consider transitioning to Prolia -seen by Dr. Sparks 02/27/25 Currentlywas being treated with alendronate for over 5 years . Secondary workup was negative except patient did not do 24 hour urine for calcium but could not collect 24 hr urine because of ncontienence . Urine NTX is suppressed Plan is to ensure 1200 mg of calcium and continue vitamin-D supplementation. We will hold the bisphosphonate for now. We will check urine NTX prior to next appointment in 12 months Assessment & Plan (12/06/2024 2:04 PM EDT): [...] as expected, utox abnormal. Confirmatory pending. See quarryman. Assessment & Plan (12/19/2024 7:40 PM EDT): Good engagement and participation with Group Medical Visit model Encouraged multifactorial approach to pain control including pharm and non-pharm modalities Followup every 3 months with pill count and utox Pill count as expected, utox neg for oxy. Confirmatory pending. See quarryman. Assessment & Plan (09/19/2024 2:07 PM EDT): [...] opioid. Confirmatory testing sent to lab. See quarryman. Assessment & Plan (07/12/2024 4:09 PM EST): [...] -UTOX and pill count as expected. See quarryman for further details -Encouraged to cont with pharm and non-pharm tx modalities Chronic type B viral hepatitis (CMS/HCC) 012 Overview (08/09/2024): VL 799 IU/mL, 2.90 log [...] on 07/14/18 Currently on Plaquenil for lupus Recurrent major depressive disorder, in partial remission 04/04/2012 Overview (07/12/2024): Follows with [facility] Assessment [...] organization. Date Type Department Care Team Description 05/08/2025 11:00 AM EST Office Visit [facility] [address] [place] [phone] Mily Alfredo, BRENDON Chronic low back pain, unspecified back pain laterality, unspecified whether sciatica present (Primary Dx); intermediate card tender (current) use of opiate analgesic 05/08/2025 Telephone [facility] [address] [place] [address] Jocelyn Randall, JÚNIOR 05/08/2025 Travel 05/04/2025 Refill [facility] [address] [place] [address] Jocelyn Randall, RN Lumbar radiculopathy 05/04/2025 Telephone [facility] [address] [place] [address] Bharati Soriano MD Med Refill 04/28/2025 Refill [facility] [address] [place] [address] Bharati Soriano MD Chronic diarrhea 04/18/2025 Refill [facility] [address] [place] [address] Jocelyn Randall, RN Lumbar radiculopathy 04/18/2025 Telephone [facility] [address] [place] [address] Bharati Soriano MD Med Refill 04/09/2025 Telephone [facility] [address] [place] [address] Bharati Soriano MD Nurse Triage 04/03/2025 Refill [facility] [address] [place] [address] Jocelyn Randall, RN Lumbar radiculopathy (Primary Dx) 04/03/2025 Telephone [facility] [address] [place] [address] Bharati Soriano MD Med Refill 04/02/2025 Refill [facility] [address] [place] [address] Jocelyn Randall, JÚNIOR 03/28/2025 Telephone [facility] [address] [place] [address] Bharati Soriano MD Medication Question 03/25/2025 Refill [facility] [address] [place] [phone] Bharati Soriano MD Gastroesophageal reflux disease without esophagitis 03/14/2025 12:45 PM EDT Office Visit [facility] [address] [place] [phone] DenzelAlElo Dental plaque (Primary Dx) 03/13/2025 Travel 03/03/2025 Refill [facility] [address] [place] [address] Bharati Soriano MD Insomnia, unspecified type 03/02/2025 Refill [facility] [address] [place] [address] Bharati Soriano MD Pain 03/01/2025 Refill [facility] [address] [place] [address] Bharati Soriano MD Primary hypertension; Chronic renal impairment, stage 2 (mild) 02/20/2025 11:00 AM EDT Office Visit [facility] [address] [place] [phone] Mily Alfredo, SOIL SCIENCE TECHNICAL OFFICER Chronic low back pain, unspecified back pain laterality, unspecified whether sciatica present (Primary Dx); intermediate card tender (current) use of opiate analgesic 02/20/2025 Telephone [facility] [address] [place], [place] [phone] Lety Ricks, JÚNIOR Abormal UTOX results 02/20/2025 Travel 02/13/2025 Telephone [facility] [address] [place], [place] [phone] Jocelyn Randall RN 02/05/2025 Refill [facility] [address] [place], [place] [phone] Bharati Soriano MD Primary hypertension; Chronic renal impairment, stage 2 (mild) from Last 3 Months Immunizations Immunization Administration [...] Sign Reading Time Taken Comments Blood Pressure 112/72 03/14/2025 1:01 PM EDT Pulse 96 12/06/2024 11:14 AM EDT [...] Description 08/07/2025 11:00 AM EST Office Visit [facility] [address] [place] [address] 09/13/2025 1:30 PM EDT Office Visit [facility] [address] [place] [address] Denzel, Elo [address] [place] [address] Health Maintenance Due Date Last Done Comments CT Colonography 1955 FIT DNA/Cologuard 1955 FIT 1955 FOBT 1955 Sigmoidoscopy 1955 Dental X-Ray: Bitewings 07/21/2024 07/20/19 24 (Patient Refused) COVID-19 Vaccine ( season) 2025 05/12/2023, 01/22/2022, 01/22/2022, Additional history exists Influenza Vaccine (#1) 2025 , 03/04/2022, 03/26/2021, Additional history exists Dental Oral Exam 03/11/2025 09/07/2024, 07/20/2023 SDOH Screening 06/30/2025 06/30/2024 Dental Prophylaxis 09/13/2025 03/14/2025, 0 09/07/2024, 03/09/2024, Additional history exists Alcohol/Substance Use Screening 12/06/2025 12/06/2024 Depression Screening 12/06/2025 12/06/2024, 12/07/19 Tobacco Screening 03/14/2026 03/14/2025 Mammogram 11/14/2026 11/14/2024, 0412/2023, 09/22/2023, Additional history exists Colonoscopy 03/30/2027 03/30/2022, 03/20/2022 Colorectal Cancer Screening 03/30/2027 Dental X-Ray: Full [...] back pain laterality, unspecified whether sciatica present CASE PRESENTATION, DETAILED AND EXTENSIVE TREATMENT PLANNING Routine 03/14/2025 12:45 PM EDT Dental plaque ORAL HYGIENE INSTRUCTIONS Routine 03/14/2025 12:45 PM EDT Dental plaque PROPHYLAXIS - ADULT Routine 03/14/2025 1 2:45 PM EDT Dental plaque POCT MADHU-14 URINE DRUG SCREEN Routine 02/20/2025 11:35 AM EDT intermediate card tender (current) use of opiate analgesic DRUG MONITOR, FENTANYL, W/CONF, URINE Routine 02/20/2025 11:00 AM EDT intermediate card tender (current) use of opiate analgesic DRUG MONITORING, BENZODIAZEPINES, QUANTITATIVE, URINE Routine 02/20/2025 11:00 AM EDT FDC (current) use of opiate analgesic BI MAMMOGRAM SCREENING TOMOSYNTHESIS BILATERAL Routine 11/14/2024 1:10 PM EDT PANORAMIC RADIOGRAPHIC IMAGE Routine 09/07/2024 1:00 PM [...] Urine Drug Screen (05/08/2025 11:59 AM EST) Only the most recent of2 resultswithin the time period is included. THC Positive(A) Negative Cocaine Screen, Urine Negative [...] Unknown 05/08/2025 11:59 AM EST Narrative Jocelyn Randall, RN - 05/08/2025 11:59 AM EST .UTOX cup Lot#[id number] Exp. 05/14/26 Internal Pass Control Mily Alfredo SOIL SCIENCE TECHNICAL OFFICER POINT OF CARE TEST ENTER/EDIT ORDERABLES Final Result * Drug Monitoring, Benzodiazepines, Quantitative, Urine (02/20/2025 11:00 AM EDT) Nordiazepam, GCMS Urine NEGATIVE [facility] Comment:CUTOFF 50 NG/MLPERFO RMING SITE:[facility] [place] [address] Benefits Sales Consultant: VAUGHN BAUTISTA MD, CLIA:[id number] Oxazepam, GCMS Urine NEGATIVE [facility] Comment:CUTOFF 50 NG/ML Lorazepam GCMS Urine NEGATIVE [facility] Comment:CUTOFF 50 NG/ML Alprazolam, GCMS Urine NEGATIVE [facility] Comment:CUTOFF 25 NG/ML Alphahydroxytriazolam, GCMS Ur NEGATIVE [facility] Comment:CUTOFF 50 NG/ML Temazepam, GCMS Urine NEGATIVE [facility] Comment:CUTOFF 50 NG/ML Alphahydroxymidazolam,GC MS Ur NEGATIVE [facility] Comment:CUTOFF 50 NG/ML Aminoclonazepam, GCMS Urine NEGATIVE [facility] Comment:CUTOFF 25 NG/ML Flurazepam Metabolite,GCMS Ur NEGATIVE [facility] Comment:CUTOFF 50 NG/ML Benzodiazepines Comments SEE NOTE [facility] Comment:This drug testing is for medical treatment only. Analysiswas performed as non-forensic testing and these resultsshould be used only by healthcare providers to renderdiagnosis or treatment, or to monitor progress of medicalconditions.Confirmation tests were developed and their analyticalperformance characteristics have been determined by [employer]. It has not been cleared or approved by the FDA.This assay has been validated pursuant to the CLIAregulations and is used for clinical purposes.Healthcare Providers needing Interpretation assistance,please contact us at [phone] ( ) M-F,8am to 10pm EST Urine (Urine, Random) 02/20/2025 11:00 AM EDT 02/20/2025 1:41 PM EDT us Bharati Soriano MD LAB URINE ORDERABLES Final Result [facility] [address] [place] [phone] * Drug Monitoring, Fentanyl, with Confirmation, Urine (02/20/2025 11:00 AM EDT) Fentanyl, Ur NEGATIVE [facility] Comment:CUTOFF 0.5 NG/MLPERF ORMING SITE:[facility], [address] [place], [place] [phone] Benefits Sales Consultant: VAUGHN BAUTISTA MD, CLIA:[id number] Norfentanyl, Ur NEGATIVE [facility] Comment:CUTOFF 0.5 NG/ML Fentanyl Note SEE NOTE [facility] Comment:This drug testing is for medical treatment only. Analysiswas performed as non-forensic testing and these resultsshould be used only by healthcare providers to renderdiagnosis or treatment, or to monitor progress of medicalconditions.Confirmation tests were developed and their analyticalperformance characteristics have been determined by [employer]. It has not been cleared or approved by the FDA.This assay has been validated pursuant to the CLIAregulations and is used for clinical purposes.Healthcare Providers needing Interpretation assistance,please contact us at [phone] ( ) M-F,8am to 10pm EST Urine (Urine, Random) 02/20/2025 11:00 AM EDT 02/20/2025 1:41 PM EDT Bharati Soriano MD LAB URINE ORDERABLES Final Result [facility] [address] [facility] [place] [address] [phone] * BI Mammogram Screening Tomosynthesis Bilateral (11/14/2024 1:10 PM EDT) Anatomical Region Laterality Modality Breast Bilateral Mammography 11/14/2024 1:10 PM EDT Narrative 11/19/2024 1:39 PM EDT [address] [place] [address] Mammography Report Signed Patient: Sara Lancaster MR#: [id number] : 1955 Acct:[id number] Age/Sex: 68 / F ADM Date: 11/14/24 Loc: HO.MAMMO Attending Dr: Bharati Soriano MD Ordering Physician: Bharati Soriano MD Results: 1N egative Date of Service: 11/14/24 Follow Up: 1 Year From Orig ina Mammogram Procedure(s): MM tomosynthesis screening BI Accession Number(s): [id number] cc: Bharati Soriano MD EXAMINATION: MM SCREENING [...] 11/19/24 1336 DD/ 1310 TD/TT: 11/14/24 1325 Seafood Specialist: Procedure Note Donotuseinterpreter, Image - 11/19/2024 [facility] [address] [place] [address] Mammography Report Signed Patient: Felipa LancasterertadMR#: [id number] : 1955cct:[id number] Age/Sex: 68 / FADM Date: 11/14/24 Loc: HO.MAMMO Attending Dr: Bharati Soriano MD Ordering Physician: Bharati Soriano MDResults: 1N egative Date of Service: 11/14/24Follow Up: 1 Year From Orig inal Mammogram Procedure(s): MM tomosynthesis screening BI Accession Number(s): [id number] cc: Bharati Soriano MD EXAMINATION: MM SCREENING [...] 11/19/24 1336 DD/ 1310 TD/TT: 11/14/24 1325 Seafood Specialist: Bharati Soriano MD IMG BI PROCEDURES Edited R esult - Final * Lipid Panel, Standard (04/26/2024 10:02 AM EST) Triglycerides 118 <150 mg/dL [facility] Comment:Desirable Triglyceri de: less than 150 mg/dLBorderline High Triglyceride 150-199 mg/dLHigh Triglyceride: 200-499 mg/dLVery High Triglyceride: greater than or equal to 5OO mg/dL Cholesterol 173 <200 mg/dL [facility] Comment:Desirable Cholestero l: less than 200 mg/dLBorderline High Cholesterol: 200-239 mg/dLHigh Cholesterol: greater than 239 mg/dL LDL Cholesterol Calculated 84 <100 mg/dL [facility] Comment:Desirable LDL: less than 100 mg/dLNear Optimal/Above Optimal LDL: 110- 129 mg/dLBorderline High LDL: 130-159 mg/dLHigh LDL: 160-189 mg/dLVery High LDL: greater than or equal to 190 mg/dL HDL Cholesterol 66 >40 mg/dL [facility] Comment:Desirable HDL: great er than 40 mg/dL Note: This HDL assay may give artificially low results in patients with liver disease. Blood Venous blood specimen / Unknown 04/26/2024 10:02 AM EST 04/26/2024 10:02 AM EST Bharati Soriano MD LAB BLOOD ORDERABLES Final Result [facility] [address] [place] [phone] * Hm Colonoscopy (03/30/2022) Colonoscopy Tubular adenoma Dr. Nugent Historical Provider HEALTH MAINTENANCE Final Result * Hepatitis C Antibody (03/18/2018 2:33 PM EDT) Hepatitis C Antibody Nonreactive Blood 03/18/2018 2:33 PM EDT Historical Provider POINT OF CARE TEST ENTER/ EDIT ORDERABLES Final Result from Last 3 Months or Most Recently Relevant to Health Maintenance Insurance [facility] STANDARD MEDICARE DENTAL-[facility] MEDICAID STAND ADULT Advance Directives Documents on File Type Date Recorded Patient Receptionist/Telephone Operator Expl anation Advance Directives and Living Will 12/22/2023 Health Care Proxy 12/22/23 Care Teams Shop Foreman Relationship Specialty Start Date End Date [place], [place] Bharati [address] [place] [address] PCP - General Family Medicine 06/14/18 Vasyl Boles MD [address] [place] [address] [address] [facility] [address] [place] [phone] Gastroenterology 06/20/24 [place] [address] [place] [phone] Rheumatology 09/18/24 Babak Sparks MD [address] [place] [address] Drive [address] [place] [address] Endocrinology 10/17/24 Aneudy Mchugh [address] [place] [phone] Orthopaedic Surgery 03/26/25
--- OUTSIDE RECORDS SUMMARY | 2025-05-08 17:36 | XMS_ITS | Encounter Summary ---
Author Organization [employer] Address [address] [place] [address] 7 [place] [address] Care Team Providers Care Undraped Artist Model Name Role Phone Bharati Soriano MD Primary Care Provider + [phone] Vasyl Boles MD Unavailable [phone] Amador Green MD Unavailable Babak Sparks MD Unavailable Aneudy Mchugh Unavailable [phone] Encounter Details Date Type Department Care Team (Latest Contact Info) Description 03/16/2022 Abstract [facility] CONVERSIONS Dental, Provider, DDS Social History [...] Description 08/07/2025 11:00 AM EST Office Visit [facility] MEDICINE [address] [place], [place] [phone] 09/13/2025 1:30 PM EDT Office Visit [facility] ADULT DENTAL [address] [place], [place] [phone] Elo Mahoney 230 [place], [place] [phone] documented as of this encounter Visit Diagnoses Not on filedocumented in this encounter Care Teams Undraped Artist Model Relationship Specialty Start Date End Date Bharati Soriano MD 230 [place] [address] PCP - General Family Medicine 06/14/18 Vasyl Boles MD [address] [place] [address] [address] [place] [address] Gastroenterology 06/20/24 [place] [address] [place] [address] Rheumatology 09/18/24 Babak Sparks MD [address] [place] [address] Drive [address] [place] [address] Endocrinology 10/17/24 Aneudy Mchugh [address] [facility] [address] Orthopaedic Surgery 03/26/25 documented as of this encounter
--- OUTSIDE RECORDS SUMMARY | 2025-05-08 17:37 | XMS_ITS | Encounter Summary ---
Author Organization [employer] Address [address] [facility] 7t [place] [address] Care Team Providers Care Criminal Justice Professor Name Role Phone Bharati Soriano MD Primary Care Provider [phone] Vasyl Boles MD Unavailable [phone] Amador Green MD Unavailable Babak Sparks MD Unavailable Aneudy Mchugh Unavailable [phone] Encounter Details Date Type Department Care Team (Late st Contact Info) Description 05/30/2024 Telephone [facility] MEDICINE 230 [place], [place] [phone] Bharati Soriano MD 230 [place], [place] [phone] Social History Tobacco Use Types Packs/Day Years [...] Description 08/07/2025 11:00 AM EST Office Visit [facility] MEDICINE [address] [place] [address] 09/13/2025 1:30 PM EDT Office Visit [facility] ADULT DENTAL [address] [place] [address] Elo Mahoney 230 [place] [address] documented as of this encounter Visit Diagnoses Not on filedocumented in this encounter Additional Health Concerns Assessment Noted Time PHQ-9 Depression Total Score: 1 01/14/20 24 10:00 AM EDT documented as of this encounter Care Teams Criminal Justice Professor Relationship Specialty Start Date End Date Bharati Soriano MD [address] [place] [address] PCP - General Family Medicine 06/14/18 Vasyl Boles MD [address] [place] [address] [place] [phone] Gastroenterology 06/20/24 Amador Green MD [address] [place] [address] Rheumatology 09/18/24 Babak Sparks MD [address] [place] [address] Endocrinology 10/17/24 Aneudy Mchugh [address] [place] [address] Orthopaedic Surgery 03/26/25 documented as of this encounter
--- OUTSIDE RECORDS SUMMARY | 2025-05-08 17:37 | XMS_ITS | Encounter Summary ---
Author Organization [employer] Address [address] [facility] 7t [place] [address] Care Team Providers Care Embalmer/Funeral Director Name Role Phone Bharati Soriano MD Primary Care Provider [phone] Vasyl Boles MD Unavailable [phone] Amador Green MD Unavailable Babak Sparks MD Unavailable [phone] Aneudy Mchugh Unavailable [phone] Reason for Visit * Reason Onset Date Comments Med Refill 04/03/2025 Encounter Details Date Type Department Care Team (Late st Contact Info) Description 04/03/2025 Telephone [facility] MEDICINE 230 [place], [place] [phone] Bharati Soriano MD 230 [place], [place] [phone] Med Refill Social History Tobacco Use Types [...] encounter Miscellaneous Notes * Telephone Encounter - Elisabeth Salgado - 04/03/2025 8:09 AM EDT TC from pt requesting medication refill. Medications needing refill : - oxyCODONE-acetaminophen (Percocet) 5-325 MG tablet To be sent to: - [facility]/pharmacy #[id number] [place], [place] - [address] [place] [address] documented in this encounter Plan of Treatment Upcoming Encounters Date Type Department Care Team (Late st Contact Info) Description 08/07/2025 11:00 AM EST Office Visit [facility] MEDICINE [address] [place] [address] 09/13/2025 1:30 PM EDT Office Visit [facility] ADULT DENTAL 230 [place] [address] Elo Mahoney 230 [place] [address] documented as of this encounter Visit Diagnoses Not on filedocumented in this encounter Additional Health Concerns Assessment Noted Time PHQ-9 Depression Total Score: 0 12/07/19 11:15 AM EDT documented as of this encounter Care Teams Embalmer/Funeral Director Relationship Specialty Start Date End Date Bharati Soriano MD 230 [place] [address] PCP - General Family Medicine 06/14/18 Vasyl Boles MD [address] [place] [address] [address] [place] [address] Gastroenterology 06/20/24 [place] [address] [place] [address] Rheumatology 09/18/24 Babak Sparks MD [address] [place] [address] Drive [address] [place] [address] Endocrinology 10/17/[address] [place] [address] Orthopaedic Surgery 03/26/25 documented as of this encounter
--- OUTSIDE RECORDS SUMMARY | 2025-05-08 17:37 | XMS_ITS | Encounter Summary ---
Author Organization [employer] Address [address] [facility] 7t [place] [address] Care Team Providers Care Bean Picker Name Role Phone Bharati Soriano MD Primary Care Provider [phone] Vasyl Boles MD Unavailable [phone] Amador Geren MD Unavailable Babak Sparks MD Unavailable [phone] Aneudy Mchugh Unavailable [phone] Reason for Visit * Reason Onset Date Comments Call Back Request 10/25/2023 Encounter Details Date Type Department Care Team (Late st Contact Info) Description 10/25/2023 Telephone [facility] MEDICINE 230 [place], [place] [phone] Bharati Soriano MD 230 [place], [place] [phone] Call Back Request Social History Tobacco Use [...] of every month. Please contact pt at [phone] documented in this encounter Plan of Treatment Upcoming Encounters Date Type Department Care Team (Late st Contact Info) Description 08/07/2025 11:00 AM EST Office Visit [facility] MEDICINE 230 [place], [place] [phone] 09/13/2025 1:30 PM EDT Office Visit [facility] ADULT DENTAL 230 [place] [address] Elo Mahoney 230 [place] [address] documented as of this encounter Visit Diagnoses Not on filedocumented in this encounter Additional Health Concerns Assessment Noted Time PHQ-9 Depression Total Score: 0 10/16/19 23 2:27 PM EDT documented as of this encounter Care Teams Bean Picker Relationship Specialty Start Date End Date Bharati Soriano MD [address] [place] [address] PCP - General Family Medicine 06/14/18 Vasyl Boles MD [address] [place] [address] DR [facility] [address] [place] [address] Gastroenterology 06/20/24 [place] [address] [place] [address] Rheumatology 09/18/24 Babak Sparks MD [address] [place] [address] Drive [address] [place] [address] Endocrinology 10/17/24 Aneudy Mchugh [address] [place] [address], [place] [address] Orthopaedic Surgery 03/26/25 documented as of this encounter
--- OUTSIDE RECORDS SUMMARY | 2025-05-08 17:37 | XMS_ITS | Clinical Summary ---
Author Organization [facility] Address [address] [place] [address] Care Team Providers Care Medicare Sales Representative Name Role Phone Bharati Soriano [...] Recently Relevant to Health Maintenance Care Teams Medicare Sales Representative Relationship Specialty Start Date End Date Dinosaur, Bharati Knight MD PCP - General 06/24/20
--- OUTSIDE RECORDS SUMMARY | 2025-05-08 17:37 | XMS_ITS | Patient Health Record ---
Author Organization [facility] Address [address] [place] [address] Care Team Providers Care Numerical Control Programmer Name Role Phone Bharati Soriano MD Primary Care Provider Vasyl Simon Jr Unavailable Allergies Allergen (clinical drug ingredient) Drug/Non Drug Allergy documented on EMR Reaction Allergy Type Onset Date Status Non-steroidal anti-inflammatory agent (FN) NSAIDS (uncoded) Unknown Allergy Active Aspir-81 Unknown Drug Allergy Active lisinopril Lisinopril Unknown Drug Allergy Activ e Metoprolol Succinate Unknown Drug Allergy Active simvastatin Simvastatin Unknown Drug Allergy Act kellie Reason For Referral No Information Medications Medication SIG (Take, Route, Frequency, Duration) Notes Start Date End Date Status Imodium A-D 2 MG Capsule 1 capsule as ne eded Orally Four times a day Active ProAir HFA 108 (90 Base) MCG/ACT Aerosol Solution INHALE 2 PUFF BY INHALATION ROUTE EVERY 4 HOURS NEEDED FOR SHORTNESS OF BREATH Inhalation; Duration: 30 Active Omeprazole 20 MG Capsule Delayed Release TAKE ONE CAPSULE BY MOUTH EVERY DAY BEFORE A MEAL Oral; Duration: 90 Active amLODIPine Besylate 10 MG Tablet Oral; Duration: 90 Active Pravastatin Sodium 20 MG Tablet TAKE 1 TABLET BY ORAL ROUTE EVERY EVENING Oral; Duration: 90 Active Losartan Potassium 25 MG Tablet Oral; Duration: 90 Active traZODone HCl 100 MG Tablet TAKE 1 TABLE T BY MOUTH EVERY DAY AT BEDTIME Oral; Duration: 90 Active Hydroxychloroquine Sulfate 2 00 MG Tablet TAKE 1 TABLET BY MOUTH TWICE A DAY WITH FOOD OR MILK Oral; Duration: 90 Active oxyCODONE-Acetaminophen 5-32 5 MG Tablet (Schedule II Drug) TAKE 1 TABLET EVERY 8 HOURS NEEDED Oral; Duration: 30 Active Alendronate Sodium 20 mg tab 1 tablet Or ally Once a day Active Cozaar 25 MG Tablet 1 tablet Orally Once a day; Duration: 30 day(s) Active MiraLax (colon prep) 17 GM/SCOOP Powder mixed with Gatorade or Crystal Light Orally begin at 5:00 p.m. the day before the procedure; Duration: 1 day 12/25/2021 Active Dulcolax (colon prep) 5 MG Tablet Delayed Release take at 3:00 p.m and 7:00p.m. Orally two tablets twice a day for one day; Duration: 1 day 12/25/2021 Active Tylenol Extra Strength 500 M G Tablet 1 tablet as needed Orally every 6 hrs Active Colace 100 MG Capsule 1 capsule as neede d Orally Once a day; Duration: 30 day(s) Active Albuterol Sulfate 108 (90 Base) MCG/ACT Aerosol Powder Breath Activated 2 puffs as needed Inhalation every 6 hrs Active Norvasc 2.5 MG Tablet 1 tablet Orally On ce a day; Duration: 30 day(s) Active Immunizations Vaccine Route Administration Date Status Comme nts Influenza Unknown 02/13/2016 Administered Influenza Unknown 03/14/2018 Administered Influenza Unknown 03/26/2021 Administered Social History Tobacco Use: Social History Observation Description Date Details (start date - stop date) Never Smoker NA - NA Social History Drugs/Alcohol: Social Info Question Answer Notes Alcohol Screen Did you have a drink containing alcohol in the past year? No Points 0 Interpretation Negative Tobacco Use: Social Info Question Answer Notes Tobacco Use/Smoking Patient is a nonsmoker Additional Details Category Social Info Options Details Miscellaneous: Marital status: single Occupation: retired Section Notes: occasional wine on weekends occasional wine on weekends occasional wine on weekends occasional wine on weekends Problems Problem Type SNOMED Code ICD Code Onset Dates Problem Status W/U Status Risk Notes Problem Colon cancer screening (267312493) Colon cancer screening (Z12.11) Active confirmed Problem Radiation proctitis (656668033) Radiation proctitis (K62.7) Active confirmed Problem Gastroesophageal reflux disease without esophagitis (762601473) Gastroesophageal reflux disease without esophagitis (K21.9) Active confirmed Problem History of malignant neoplasm of rectum (793713827) 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) Active confirmed Problem Incontinence of feces (92752104) Incontinence of feces, unspecified fecal incontinence type (R15.9) Active confirmed Plan Of Treatment Future Test Test Name Order Date COLONOSCOPY 07/14/2018 COLONOSCOPY 12/25/2021 Next Appt Details Provider Name:Vasyl Jarrell Markus peace Jr, 07/12/2025 02:55:00 PM, [address] [facility], [address], [place], [address], Insurance Providers Payer Name Payer Address Payer Phone Subscriber Number Group Number Insured Name Patient Relationship to Insured Coverage Start Date Coverage End Date MEDICARE OF [place] [address] [place] [id number] PATT RENDON Self - patient is the insured MEDICAID OF [facility] [facility] [address] [place] [address] [phone] [id number] PATT RENDON Self - patient is the insured Medical (General) History Medical History History ICD Code hypertension 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
--- OUTSIDE RECORDS SUMMARY | 2025-05-08 17:37 | XMS_ITS | Encounter Summary ---
Author Organization [employer] Address [address] [facility] 7t [place] [address] Care Team Providers Care Java Architect Name Role Phone Bharati Soriano MD Primary Care Provider [phone] Vasyl Boles MD Unavailable Amador Green MD Unavailable Babak Sparks MD Unavailable [phone] Aneudy Mchugh Unavailable [phone] Reason for Visit * Reason Comments Med Refill Encounter Details Date Type Department Care Team (Late st Contact Info) Description 07/02/2023 Refill [facility] MEDICINE 230 [place], [place] [phone] Bharati Soriano MD [address] [place], [place] [phone] Social History Tobacco Use Types Packs/Day Years Used Date Smoking Tobacco: Never Passive Smoke Exposure: Never Smokeless Tobacco: Never Depression Answer Date Recorded Patient Health Questionnaire-9 Score 0 10/15/2022 Housing Stability Answer Date Recorded What is your housing situation today? I have anita jaclyn 03/29/[address] you li [...] Description 08/07/2025 11:00 AM EST Office Visit [facility] MEDICINE 230 [place] [address] 09/13/2025 1:30 PM EDT Office Visit [facility] ADULT DENTAL 230 [place] [address] Denzel, Elo 230 [place] [address] documented as of this encounter Visit Diagnoses Not on filedocumented in this encounter Additional Health Concerns Assessment Noted Time PHQ-9 Depression Total Score: 0 10/16/19 23 2:27 PM EDT documented as of this encounter Care Teams Java Architect Relationship Specialty Start Date End Date Bharati Soriano MD [address] [place] [address] PCP - General Family Medicine 06/14/18 Vasyl Boles MD [address] [place] [address] Gastroenterology 06/20/24 Amador Green MD [address] [place] [address] Rheumatology 09/18/24 Babak Sparks MD [address] [place] [address] Endocrinology 10/17/24 Aneudy Mchugh [address] [place] [address] Orthopaedic Surgery 03/26/25 documented as of this encounter
--- OUTSIDE RECORDS SUMMARY | 2025-05-08 17:37 | XMS_ITS | Encounter Summary ---
Author Organization [employer] Address [address] [facility] 7t [place] [address] Care Team Providers Care Chemist Intern Name Role Phone Bharati Soriano MD Primary Care Provider [phone] Vasyl Boles MD Unavailable Amador Green MD Unavailable Babak Sparks MD Unavailable Aneudy Mchugh Unavailable [phone] Reason for Visit * Reason Onset Date Comments Med Refill 06/01/2023 Encounter Details Date Type Department Care Team (Late st Contact Info) Description 06/01/2023 Telephone [facility] MEDICINE [address] [place], [place] [phone] Bharati Soriano MD 230 [place], [place] [phone] Med Refill Social History Tobacco Use Types [...] Description 08/07/2025 11:00 AM EST Office Visit [facility] MEDICINE [address] [place] [address] 09/13/2025 1:30 PM EDT Office Visit [facility] ADULT DENTAL [address] [place] [address] Al Mahoneyaris [address] [place] [address] documented as of this encounter Visit Diagnoses Not on filedocumented in this encounter Additional Health Concerns Assessment Noted Time PHQ-9 Depression Total Score: 0 10/16/19 23 2:27 PM EDT documented as of this encounter Care Teams Chemist Intern Relationship Specialty Start Date End Date Bharati Soriano MD 230 [place] [address] PCP - General Family Medicine 06/14/18 Vasyl Boles MD [address] [place] [address] [address] [place] [address] Gastroenterology 06/20/24 Amador Green MD [address] [place] [address] Rheumatology 09/18/24 Babak Sparks MD [address] [place] [address] Drive [address] [place] [address] Endocrinology 10/17/24 Aneudy Mchugh [address] [place] [address] Orthopaedic Surgery 03/26/25 documented as of this encounter
--- OUTSIDE RECORDS SUMMARY | 2025-05-08 17:37 | XMS_ITS | Encounter Summary ---
Author Organization [employer] Address [address] [place] [address] [address] Care Team Providers Care Tongue Presser Name Role Phone Bharati Soriano MD Primary Care Provider [phone]- [phone] Vasyl Boles MD Unavailable [phone] Amador Green MD Unavailable [phone] Babak Sparks MD Unavailable [phone] Aneudy Mchugh Unavailable [phone] Reason for Referral * Consultation (Routine) - Closed Specialty Diagnoses / Procedures Referred By Contac t Referred To Contact Physical Therapy Diagnoses Chronic low back pain, unspecified back pain laterality, unspecified whether sciatica present Bharati Soriano MD [address] [place] [address] Phone: tel: fax: [facility] / PT, [address] Phone: tel: fax: Referral ID Status Reason Start Date Expiration Date V isits Requested Visits Authorized [id number] Closed Specialty Services Required 10/15/2023 10/14/2024 1 1 Encounter Details Date Type Department Care Team (Late st Contact Info) Description 10/15/2023 Orders Only [facility] MEDICINE [address] [place] [address] Bharati Soriano MD [address] [place] [address] Chronic low back pain, unspecified back pain [...] Description 08/07/2025 11:00 AM EST Office Visit [facility] MEDICINE [address] [place] [address] 09/13/2025 1:30 PM EDT Office Visit [facility] ADULT DENTAL [address] [place] [address] Elo Mahoney [address] [place] [address] Scheduled Referrals Name Type Priority Associated Diagnoses [...] documented as of this encounter Care Teams Tongue Presser Relationship Specialty Start Date End Date Bharati Soriano MD [address] [place] [address] PCP - General Family Medicine 06/14/18 Vasyl Boles MD [address] [place] [address] DR [facility] [address] [place] [address] Gastroenterology 06/20/24 [place] [address] [place] [address] Rheumatology 09/18/24 Babak Sparks MD [address] [place] [address] Drive [address] [place] [address] Endocrinology 10/17/24 Aneudy Mchugh [address] [place] [address] Orthopaedic Surgery 03/26/25 documented as of this encounter
--- OUTSIDE RECORDS SUMMARY | 2025-05-08 17:37 | XMS_ITS | Clinical Summary ---
Author Organization [facility] Address [address] [place] [address] Phone Care Team Providers Care Commercial Lines Underwriter Name Role Phone Bharati Soriano MD [...] for pain (specific location in comments). {PARTIAL FILL:[id number]} Active albuterol 90 mcg/actuation inhaler Inhale 2 [...] B [place] PART A & [facility] * Guarantor: Felipa Finkertad Account Type Relation to Patient Date of Phone Billing Address Personal/Family Self 1955 [address] [facility] [address] [place] [address] MEDICARE PART A & B [facility] Care Teams Commercial Lines Underwriter Relationship Specialty Start Date End Date Christie, Bharati Spann MD [address] [place] [address] PCP - General Family Medicine 01/02/19 Additional Source Comments The information contained in this document represents components of the legal health record. It is not the complete legal health record.[facility]
--- OUTSIDE RECORDS SUMMARY | 2025-05-08 17:37 | XMS_ITS | Encounter Summary ---
Author Organization [employer] Address [address] [facility] 7t [place] [address] Care Team Providers Care Test Carrier Name Role Phone Bharati Soriano MD Primary Care Provider [phone] Vasyl Boles MD Unavailable Amador Green MD Unavailable [phone] Babak Sparks MD Unavailable [phone] Aneudy Mchugh Unavailable [phone] Reason for Visit * Reason Onset Date Comments Med Refill 05/03/2023 Encounter Details Date Type Department Care Team (Late st Contact Info) Description 05/03/2023 Telephone [facility] 230 [place], [place] [phone] Bharati Soriano MD [address] [place], [place] [phone] Med Refill Social History Tobacco Use Types [...] Description 08/07/2025 11:00 AM EST Office Visit [facility] [address] [place] [address] 09/13/2025 1:30 PM EDT Office Visit [facility] ADULT DENTAL [address] [place] [address] Denzel, Elo [address] [place] [address] documented as of this encounter Visit Diagnoses Not on filedocumented in this encounter Additional Health Concerns Assessment Noted Time PHQ-9 Depression Total Score: 0 10/16/19 23 2:27 PM EDT documented as of this encounter Care Teams Test Carrier Relationship Specialty Start Date End Date Bharati Soriano MD [address] [place] [address] PCP - General Family Medicine 06/14/18 Vasyl Boles MD [address] [place] [address] [address] [place] [address] Gastroenterology 06/20/24 Amador Green MD [address] [place] [address] Rheumatology 09/18/24 Babak Sparks MD [address] [place] [address] Drive [address] [place] [address] Endocrinology 10/17/24 Aneudy Mchugh [address] [place] [address] Orthopaedic Surgery 03/26/25 documented as of this encounter
--- OUTSIDE RECORDS SUMMARY | 2025-05-08 17:37 | XMS_ITS | Encounter Summary ---
Author Organization [employer] Address [address] [facility] [address] 7t [place] [address] Care Team Providers Care Filament Tester Name Role Phone Bharati Soriano MD Primary Care Provider [phone]- [phone] Vasyl Boles MD Unavailable [phone] Amador Green MD Unavailable [phone] Babak Sparks MD Unavailable [phone] Aneudy Mchugh Unavailable [phone] Encounter Details Date Type Department Care Team (Latest Contact Info) Description 05/08/2025 Travel Social History Tobacco Use Types Packs/Day [...] 11:00 AM EST Office Visit [facility] MEDICINE [address] [place] [address] 09/13/2025 1:30 PM EDT Office Visit [facility] ADULT DENTAL [address] [place] [address] Denzel, Elo [address] [place] [address] documented as of this encounter Visit Diagnoses Not on filedocumented in this encounter Additional Health Concerns Assessment Noted Time PHQ-9 Depression Total Score: 0 12/07/19 25 11:15 AM EDT documented as of this encounter Care Teams Filament Tester Relationship Specialty Start Date End Date Bharati Soriano MD [address] [place] [address] PCP - General Family Medicine 06/14/18 Vasyl Boles MD [address] [place] [phone] Gastroenterology 06/20/24 Amador Green MD [address] [place] [address] Rheumatology 09/18/24 Babak Sparks MD [address] [place] [address] Endocrinology 10/17/24 Aneudy Mchugh [address] [place] [address] Orthopaedic Surgery 03/26/25 documented as of this encounter
--- OUTSIDE RECORDS SUMMARY | 2025-05-08 17:37 | XMS_ITS | Encounter Summary ---
Author Organization [employer] Address 75 [facility] 7t [place] [address] Care Team Providers Care Assorter Name Role Phone Bharati Soriano MD Primary Care Provider [phone]- [phone] Vasyl Boles MD Unavailable [phone] Amador Green MD Unavailable [phone] Babak Sparks MD Unavailable Aneudy Mchugh Unavailable [phone] Reason for Visit * Reason Onset Date Comments Med Refill 05/04/2025 Encounter Details Date Type Department Care Team (Late st Contact Info) Description 05/04/2025 Telephone [facility] MEDICINE [address] [place], [place] [phone] Bharati Soriano MD 230 [place], [place] [phone] Med Refill Social History Tobacco Use Types [...] encounter Miscellaneous Notes * Telephone Encounter - Sammy Munoz - 05/04/2025 11:02 AM EST TC from pt requesting medication refill. Medications needing refill : oxyCODONE-acetaminophen (Percocet) 5-325 MG tablet To be sent to: [facility]/pharmacy #[address] [place] [address] documented in this encounter Plan of Treatment Upcoming Encounters Date Type Department Care Team (Late st Contact Info) Description 08/07/2025 11:00 AM EST Office Visit [facility] MEDICINE 230 [place], [place] [phone] 09/13/2025 1:30 PM EDT Office Visit [facility] ADULT DENTAL 230 [place], [place] [phone] Denzel, Elo 230 [place] [address] documented as of this encounter Visit Diagnoses Not on filedocumented in this encounter Additional Health Concerns Assessment Noted Time PHQ-9 Depression Total Score: 0 12/07/19 11:15 AM EDT documented as of this encounter Care Teams Assorter Relationship Specialty Start Date End Date Bharati Soriano MD [address] [place] [address] PCP - General Family Medicine 06/14/18 Vasyl Boles MD [address] [place] [address] [facility] [address] [place] [address] Gastroenterology 06/20/24 Amador Green MD [address] [place] [address] Rheumatology 09/18/24 Babak Sparks MD [address] [place] [address] [address] [place] [address] Endocrinology 10/17/24 Aneudy Mchugh [address] [place], [place] [address] [address] Orthopaedic Surgery 03/26/25 documented as of this encounter
--- OUTSIDE RECORDS SUMMARY | 2025-05-08 17:37 | XMS_ITS | Encounter Summary ---
Author Organization [employer] Address 75 [facility] 7t [place] [address] Care Team Providers Care Bar Catcher Name Role Phone Bharati Soriano MD Primary Care Provider [phone]- [phone] Vasyl Boles MD Unavailable [phone] Amador Green MD Unavailable Babak Sparks MD Unavailable [phone] Aneudy Mchugh Unavailable [phone] Reason for Visit * Reason Comments Med Refill Encounter Details Date Type Department Care Team (Late st Contact Info) Description 06/18/2023 Refill [facility] MEDICINE 230 [place], [place] [phone] Bharati Soriano MD 230 [place], [place] [phone] Dyslipidemia; Acquired hypothyroidism Social History Tobacco Use [...] Description 08/07/2025 11:00 AM EST Office Visit [facility] MEDICINE 230 [place] [address] 09/13/2025 1:30 PM EDT Office Visit [facility] ADULT DENTAL 230 [place] [address] Denzel, Elo 230 [place] [address] documented as of this encounter Visit Diagnoses Diagnosis Dyslipidemia Other and unspecified hyperlipidemia Acquired hypothyroidism Unspecified hypothyroidism documented in this encounter Additional Health Concerns Assessment Noted Time PHQ-9 Depression Total Score: 0 10/16/19 23 2:27 PM EDT documented as of this encounter Care Teams Bar Catcher Relationship Specialty Start Date End Date Bharati Soriano MD [address] [place] [address] PCP - General Family Medicine 06/14/18 Vasyl Boles MD [address] [place] [address] Gastroenterology 06/20/24 Amador Green MD [address] [place] [address] Rheumatology 09/18/24 Babak Sparks MD [address] [place] [address] Endocrinology 10/17/24 Aneudy Mchugh [address] [place] [address] Orthopaedic Surgery 03/26/25 documented as of this encounter
--- OUTSIDE RECORDS SUMMARY | 2025-05-08 17:37 | XMS_ITS | Encounter Summary ---
Author Organization [employer] Address 75 [facility] 7t [place] [address] Care Team Providers Care Weather Strip Installer Name Role Phone Bharati Soriano MD Primary Care Provider [phone]- [phone] Vasyl Boles MD Unavailable [phone] Amador Geren MD Unavailable Babak Sparks MD Unavailable [phone] Aneudy Mchugh Unavailable [phone] Reason for Visit * Reason Comments Med Refill Encounter Details Date Type Department Care Team (Late st Contact Info) Description 07/16/2024 Refill [facility] MEDICINE 230 [place], [place] [phone] Bharati Soriano MD 230 [place], [place] [phone] Mild intermittent asthma, unspecified whether complicated; Acquired [...] Description 08/07/2025 11:00 AM EST Office Visit [facility] MEDICINE 230 [place] [address] 09/13/2025 1:30 PM EDT Office Visit [facility] ADULT DENTAL 230 [place] [address] Elo Mahoney 230 [place] [address] documented as of this encounter Visit Diagnoses Diagnosis Mild intermittent asthma, unspecified whether complicated Acquired hypothyroidism Unspecified hypothyroidism documented in this encounter Additional Health Concerns Assessment Noted Time PHQ-9 Depression Total Score: 1 01/14/20 24 10:00 AM EDT documented as of this encounter Care Teams Weather Strip Installer Relationship Specialty Start Date End Date Bharati Soriano MD [address] [place] [address] PCP - General Family Medicine 06/14/18 Vasyl Boles MD [address] [place] [address] [address] [place] [address] Gastroenterology 06/20/24 Amador Green MD [address] [place] [address] Rheumatology 09/18/24 Babak Sparks MD [address] [place] [address] Drive [address] [place] [address] Endocrinology 10/17/24 Aneudy Mchugh 300 [place] [address] Orthopaedic Surgery 03/26/25 documented as of this encounter
--- OUTSIDE RECORDS SUMMARY | 2025-05-08 17:37 | XMS_ITS | Encounter Summary ---
Author Organization [employer] Address 75 [facility] 7t [place] [address] Care Team Providers Care Electronic Funds Transfer Coordinator Name Role Phone Bharati Soriano MD Primary Care Provider [phone] Vasyl Boles MD Unavailable Amador Green MD Unavailable Babak Sparks MD Unavailable Aneudy Mchugh Unavailable [phone] Reason for Visit * Reason Onset Date Comments Med Refill 05/03/2024 Encounter Details Date Type Department Care Team (Late st Contact Info) Description 05/03/2024 Telephone [facility] MEDICINE 230 [place], [place] [phone] Bharati Soriano MD 230 [place], [place] [phone] Med Refill Social History Tobacco Use Types [...] MG tablet To be sent to: [facility]/pharmacy #[address] [place] [address] - [address] [place] [address] documented in this encounter Plan of Treatment Upcoming Encounters Date Type Department Care Team (Late st Contact Info) Description 08/07/2025 11:00 AM EST Office Visit [facility] MEDICINE [address] [place], [place] [phone] 09/13/2025 1:30 PM EDT Office Visit [facility] ADULT DENTAL [address] [place] [address] Elo Mahoney 230 [place] [address] documented as of this encounter Visit Diagnoses Not on filedocumented in this encounter Additional Health Concerns Assessment Noted Time PHQ-9 Depression Total Score: 1 01/14/20 24 10:00 AM EDT documented as of this encounter Care Teams Electronic Funds Transfer Coordinator Relationship Specialty Start Date End Date Bharati Soriano MD 230 [place] [address] PCP - General Family Medicine 06/14/18 Vasyl Boles MD [address] [place] [address] [address] [place] [address] Gastroenterology 06/20/24 [place] [address] [place] [address] Rheumatology 09/18/24 Babak Sparks MD [address] [place] [address] Drive [address] [place] [address] Endocrinology 10/17/24 Aneudy Mchugh [address] [place] [address] Orthopaedic Surgery 03/26/25 documented as of this encounter
--- OUTSIDE RECORDS SUMMARY | 2025-05-08 17:37 | XMS_ITS | Encounter Summary ---
Author Organization [employer] Address 75 [facility] 7t [place] [address] Care Team Providers Care Field Service Analyst Name Role Phone Bharati Soriano MD Primary Care Provider [phone] Vasyl Boles MD Unavailable [phone] Amador Green MD Unavailable [phone] Babak Sparks MD Unavailable Aneudy Mchugh Unavailable [phone] Reason for Visit * Reason Comments Med Refill Encounter Details Date Type Department Care Team (Late st Contact Info) Description 02/05/2025 Refill [facility] MEDICINE 230 [place], [place] [phone] Bharati Soriano MD 230 [place], [place] [phone] Primary hypertension; Chronic renal impairment, stage 2 [...] Visit [facility] MEDICINE 230 [place] [address] 09/13/2025 1:30 PM EDT Office Visit [facility] ADULT DENTAL 230 [place] [address] Elo Mahoney 230 [place] [address] documented as of this encounter Visit Diagnoses Diagnosis Primary hypertension Unspecified essential hypertension Chronic renal impairment, stage 2 (mild) documented in this encounter Additional Health Concerns Assessment Noted Time PHQ-9 Depression Total Score: 0 12/07/19 25 11:15 AM EDT documented as of this encounter Care Teams Field Service Analyst Relationship Specialty Start Date End Date Bharati Soriano MD [address] [place] [address] PCP - General Family Medicine 06/14/18 Vasyl Boles MD [address] [place] [address] [address] [place] [address] Gastroenterology 06/20/24 Amador Green MD [address] [place] [address] Rheumatology 09/18/24 Babak Sparks MD [address] [place] [address] Drive [address] [place] [address] Endocrinology 10/17/24 Aneudy Mchugh [address] [place] [address] Orthopaedic Surgery 03/26/25 documented as of this encounter
--- OUTSIDE RECORDS SUMMARY | 2025-05-08 17:37 | XMS_ITS | Encounter Summary ---
Author Organization [employer] Address 75 [facility] 7t [place] [address] Care Team Providers Care Vice President Sales Name Role Phone Bharati Soriano MD Primary Care Provider [phone] Vasyl Boles MD Unavailable Amador Green MD Unavailable Babak Sparks MD Unavailable Aneudy Mchugh Unavailable [phone] Reason for Visit * Reason Onset Date Comments Med Refill 04/18/2025 Encounter Details Date Type Department Care Team (Late st Contact Info) Description 04/18/2025 Telephone [facility] MEDICINE 230 [place], [place] [phone] Bharati Soriano MD 230 [place], [place] [phone] Med Refill Social History Tobacco Use Types [...] * Telephone Encounter - Sammy Munoz - 04/18/2025 9:27 AM EST TC from pt requesting medication refill. Medications needing refill : oxyCODONE-acetaminophen (Percocet) 5-325 MG tablet To be sent to: [facility]/pharmacy #[address] [place] [address] documented in this encounter Plan of Treatment Upcoming Encounters Date Type Department Care Team (Late st Contact Info) Description 08/07/2025 11:00 AM EST Office Visit [facility] MEDICINE 230 [place], [place] [phone] 09/13/2025 1:30 PM EDT Office Visit [facility] ADULT DENTAL [address] [place], [place] [phone] Denzel, Elo 230 [place] [address] documented as of this encounter Visit Diagnoses Not on filedocumented in this encounter Additional Health Concerns Assessment Noted Time PHQ-9 Depression Total Score: 0 12/07/19 11:15 AM EDT documented as of this encounter Care Teams Vice President Sales Relationship Specialty Start Date End Date Bharati Soriano MD [address] [place] [address] PCP - General Family Medicine 06/14/18 Vasyl Boles MD [address] [place] [address] DR [facility] [address] [place] [address] Gastroenterology 06/20/24 Amador Green MD [address] [place] [address] Rheumatology 09/18/24 Babak Sparks MD [address] [place] [address] [address] [place] [address] Endocrinology 10/17/24 Aneudy Mchugh [address] [place], [place] [address], [place] [address] Orthopaedic Surgery 03/26/25 documented as of this encounter
--- OUTSIDE RECORDS SUMMARY | 2025-05-08 17:37 | XMS_ITS | Encounter Summary ---
Author Organization [employer] Address 75 [facility] 7t [place] [address] Care Team Providers Care Generator Assembler Name Role Phone Bharati Soriano MD Primary Care Provider [phone]- [phone] Vasyl Boles MD Unavailable [phone] Amador Green MD Unavailable Babak Sparks MD Unavailable [phone] Aneudy Mchugh Unavailable [phone] Reason for Visit * Reason Onset Date Comments Med Refill 02/01/2024 Encounter Details Date Type Department Care Team (Late st Contact Info) Description 02/01/2024 Telephone [facility] MEDICINE 230 [place], [place] [phone] Bharati Soriano MD 230 [place], [place] [phone] Med Refill Social History Tobacco Use Types [...] 5-325 MG tablet To be sent to: [facility]/pharmacy #[id number] [place] [address] - [address] [place] [address] documented in this encounter Plan of Treatment Upcoming Encounters Date Type Department Care Team (Late st Contact Info) Description 08/07/2025 11:00 AM EST Office Visit [facility] MEDICINE [address] [place] [address] 09/13/2025 1:30 PM EDT Office Visit [facility] ADULT DENTAL [address] [place] [address] Elo Mahoney [address] [place] [address] documented as of this encounter Visit Diagnoses Not on filedocumented in this encounter Additional Health Concerns Assessment Noted Time PHQ-9 Depression Total Score: 1 01/14/20 10:00 AM EDT documented as of this encounter Care Teams Generator Assembler Relationship Specialty Start Date End Date Branch, Bharati, MD 230 [place] [address] PCP - General Family Medicine 06/14/18 Vasyl Boles MD [address] [place] [address] [address] [place] [address] Gastroenterology 06/20/24 [place] [address] [place] [address] Rheumatology 09/18/24 Babak Sparks MD [address] [place] [address] Drive [address] [place] [address] Endocrinology 10/17/24 Aneudy Mchugh [address] [facility] [place] [address] Orthopaedic Surgery 03/26/25 documented as of this encounter
--- OUTSIDE RECORDS SUMMARY | 2025-05-08 17:37 | XMS_ITS | Encounter Summary ---
Author Organization [employer] Address [address] [place] [address] 7t [place] [address] Care Team Providers Care Appliance Counselor Name Role Phone Bharati Soriano MD Primary Care Provider [phone] Vasyl Boles MD Unavailable Amador Green MD Unavailable [phone] Babak Sparks MD Unavailable [phone] Aneudy Mchugh Unavailable [phone] Reason for Visit * Reason Onset Date Comments Other 11/03/2022 Encounter Details Date Type Department Care Team (Late st Contact Info) Description 11/03/2022 Telephone [facility] MEDICINE 230 [place], [place] [phone] Bharati Soriano MD 230 [place], [place] [phone] Other Social History Tobacco Use Types Packs/Day [...] EDT Tc from patient returning call back, investment underwriter didn't see any notes. documented in this encounter Plan of Treatment Upcoming Encounters Date Type Department Care Team (Late st Contact Info) Description 08/07/2025 11:00 AM EST Office Visit [facility] MEDICINE 230 [place] [address] 09/13/2025 1:30 PM EDT Office Visit [facility] ADULT DENTAL [address] [place] [address] Elo Mahoney 230 [place] [address] documented as of this encounter Visit Diagnoses Not on filedocumented in this encounter Additional Health Concerns Assessment Noted Time PHQ-9 Depression Total Score: 0 10/16/19 2:27 PM EDT documented as of this encounter Care Teams Appliance Counselor Relationship Specialty Start Date End Date Bharati Soriano MD 230 [place] [address] PCP - General Family Medicine 06/14/18 Vasyl Boles MD [address] [place] [address] [address] [place] [address] Gastroenterology 06/20/24 Amador Green MD [address] [place] [address] Rheumatology 09/18/24 Babak Sparks MD [address] [place] [address] Drive [address] [place] [address] Endocrinology 10/17/24 Aneudy Mchugh [address] [place] [address] Orthopaedic Surgery 03/26/25 documented as of this encounter
--- OUTSIDE RECORDS SUMMARY | 2025-05-08 17:37 | XMS_ITS | Encounter Summary ---
Author Organization [employer] Address 75 [facility] 7t [place] [address] Care Team Providers Care Medical Librarian Name Role Phone Bharati Soriano MD Primary Care Provider [phone] Vasyl Boles MD Unavailable [phone] Amador Green MD Unavailable [phone] Babak Sparks MD Unavailable [phone] Aneudy Mchugh Unavailable [phone] Encounter Details Date Type Department Care Team (Late st Contact Info) Description 01/04/2024 Orders Only [facility] MEDICINE [address] [place] [address] Hortencia Beard, RN [address] [place] [address] Pain Social History Tobacco Use Types Packs/Day [...] Description 08/07/2025 11:00 AM EST Office Visit [facility] MEDICINE [address] [place] [address] 09/13/2025 1:30 PM EDT Office Visit [facility] ADULT DENTAL [address] [place] [address] Denzel Elo [address] [place] [address] documented as of this encounter Procedures Procedure Name Priority Date/Time Associated Diagnosis Comments DRUG MONITORING, BENZODIAZEPINES, QUANTITATIVE, URINE Routine 01/04/2024 11:23 AM EDT Pain documented in this encounter Results * Drug Monitoring, Benzodiazepines, Quantitative, Urine (01/04/2024 11:23 AM EDT) Nordiazepam, GCMS Urine NEGATIVE [facility] Oxazepam, GCMS Urine NEGATIVE [facility] Lorazepam GCMS Urine NEGATIVE [facility] Alprazolam, GCMS Urine NEGATIVE [facility] Alphahydroxytriazolam, GCMS Ur NEGATIVE [facility] Temazepam, GCMS Urine NEGATIVE [facility] Alphahydroxymidazolam,GC MS Ur NEGATIVE [facility] Aminoclonazepam, GCMS Urine NEGATIVE [facility] Flurazepam Metabolite,GCMS Ur NEGATIVE [facility] Benzodiazepines Comments SEE NOTE [facility] Comment:This drug testing is for medical treatment only.Analysis was performed as non-forensic testing andthese results should be used only by healthcareproviders to render diagnosis or treatment, or tomonitor progress of medical conditions.LDT Notes:Confirmation tests were developed and their analyticalperformance characteristics have been determined [email or web address]. It has not been cleared or approvedby the FDA. This assay has been validated pursuant tothe CLIA regulations and is used for clinical purposes.Healthcare Providers needing Interpretation assistance,please contact us at [phone] ( )M-F, 8am to 10pm ESTTHIS TEST PERFORMED AT:[facility] [place] [phone] DIRECTOR: VAUGHN BAUTISTA MD 01/04/2024 11:2 3 AM EDT 01/04/2024 1:53 PM EDT us Mily Alfredo WEDDING DECORATOR LAB URINE ORDERABLES Final Res ult [facility] [address] [place] [address] [phone] documented in this encounter Visit Diagnoses Diagnosis Pain Generalized pain documented in this encounter Additional Health Concerns Assessment Noted Time PHQ-9 Depression Total Score: 2 12/22/19 24 2:00 PM EDT documented as of this encounter Care Teams Medical Librarian Relationship Specialty Start Date End Date Bharati Soriano MD 230 [place] [address] PCP - General Family Medicine 06/14/18 Vasyl Boles MD [address] [place] [address] [place] [phone] Gastroenterology 06/20/24 Amador Green MD [address] [place] [address] Rheumatology 09/18/24 Babak Sparks MD [address] [facility] [address] [place] [address] Endocrinology 10/17/24 Aneudy Mchugh [address] [place] [address] Orthopaedic Surgery 03/26/25 documented as of this encounter
--- OUTSIDE RECORDS SUMMARY | 2025-05-08 17:37 | XMS_ITS | Encounter Summary ---
Author Organization [employer] Address [address] [place] [address] 7t [place] [address] Care Team Providers Care Lens Inserter Name Role Phone Bharati Soriano MD Primary Care Provider +[phone]- [phone] Vasyl Boles MD Unavailable Amador Green MD Unavailable [phone] Babak Sparks MD Unavailable Aneudy Mchugh Unavailable [phone] Reason for Visit * Reason Comments Med Change Request Encounter Details Date Type Department Care Team (Late st Contact Info) Description 09/08/2022 Refill [facility] [address] [place], [place] [phone] Bharati Soriano MD 230 [place], [place] [phone] Social History Tobacco Use Types Packs/Day Years [...] 11:00 AM EST Office Visit [facility] 230 [place] [address] 09/13/2025 1:30 PM EDT Office Visit [facility] 230 [place] [address] Elo Mahoney 230 [place] [address] documented as of this encounter Visit Diagnoses Not on filedocumented in this encounter Care Teams Lens Inserter Relationship Specialty Start Date End Date Bharati Soriano MD 230 [place] [address] PCP - General Family Medicine 06/14/18 Vasyl Boles MD [address] [place] [address] DR [facility] [address] [place] [address] Gastroenterology 06/20/24 [place] [address] [place] [address] Rheumatology 09/18/24 Babak Sparks MD [address] [place] [address] Drive [address] [place] [address] Endocrinology 10/17/24 Aneudy Mchugh 300 [place] [address] Orthopaedic Surgery 03/26/25 documented as of this encounter
--- OUTSIDE RECORDS SUMMARY | 2025-05-08 17:37 | XMS_ITS | Encounter Summary ---
Author Organization [employer] Address 75 [facility] 7t [place] [address] Care Team Providers Care Ada Accommodation Consultant Name Role Phone Bharati Soriano MD Primary Care Provider +[phone]- [phone] Vasyl Boles MD Unavailable Amador Green MD Unavailable Babak Sparks MD Unavailable Aneudy Mchugh Unavailable [phone] Reason for Visit * Reason Onset Date Comments Med Refill 10/31/2024 Encounter Details Date Type Department Care Team (Late st Contact Info) Description 10/31/2024 Telephone [facility] 230 [place], [place] [phone] Bharati Soriano MD 230 [place], [place] [phone] Med Refill Social History Tobacco Use Types [...] sent to: [facility]/pharmacy #[address] [place] [address] - [address] [place] [address] documented in this encounter Plan of Treatment Upcoming Encounters Date Type Department Care Team (Late st Contact Info) Description 08/07/2025 11:00 AM EST Office Visit [facility] 230 [place], [place] [phone] 09/13/2025 1:30 PM EDT Office Visit [facility] ADULT D[facility] 230 [place] [address] Elo Mahoney 230 [place] [address] documented as of this encounter Visit Diagnoses Not on filedocumented in this encounter Additional Health Concerns Assessment Noted Time PHQ-9 Depression Total Score: 1 01/14/20 24 10:00 AM EDT documented as of this encounter Care Teams Ada Accommodation Consultant Relationship Specialty Start Date End Date Bharati Soriano MD 230 [place] [address] PCP - General Family Medicine 06/14/18 Vasyl Boles MD [address] [place] [address] [address] [place] [address] Gastroenterology 06/20/24 [place] [address] [place] [address] Rheumatology 09/18/24 Babak Sparks MD [address] [place] [address] Drive [address] [place] [address] Endocrinology 10/17/24 Aneudy Mchugh [address] [place] [address] Orthopaedic Surgery 03/26/25 documented as of this encounter
--- OUTSIDE RECORDS SUMMARY | 2025-05-08 17:37 | XMS_ITS | Encounter Summary ---
Author Organization [employer] Address [address] [place] [address] 7t [place] [address] Care Team Providers Care Cardiograph Operator Name Role Phone Bharati Soriano MD Primary Care Provider [phone]- [phone] Vasyl Boles MD Unavailable Amador Green MD Unavailable Babak Sparks MD Unavailable Aneudy Mchugh Unavailable [phone] Reason for Visit * Reason Comments Med Refill Encounter Details Date Type Department Care Team (Late st Contact Info) Description 11/17/2022 Refill [facility] 230 [place], [place] [phone] Bharati Soriano MD 230 [place], [place] [phone] Wheeze Social History Tobacco Use Types Packs/Day [...] Office Visit [facility] 230 [place] [address] 09/13/2025 1:30 PM EDT Office Visit [facility] ADULT DENTAL 230 [place] [address] Denzel, Elo 230 [place] [address] documented as of this encounter Visit Diagnoses Diagnosis Wheeze Wheezing documented in this encounter Additional Health Concerns Assessment Noted Time PHQ-9 Depression Total Score: 0 10/16/19 2:27 PM EDT documented as of this encounter Care Teams Cardiograph Operator Relationship Specialty Start Date End Date Bharati Soriano MD 230 [place] [address] PCP - General Family Medicine 06/14/18 Vasyl Boles MD [address] [place] [address] DR [facility] 102 [place] [address] Gastroenterology 06/20/24 [place] [address] [place] [address] Rheumatology 09/18/24 Babak Sparks MD [address] [place] [address] Drive [address] [place] [address] Endocrinology 10/17/24 Aneudy Mchugh [address] [place] [address] Orthopaedic Surgery 03/26/25 documented as of this encounter
--- OUTSIDE RECORDS SUMMARY | 2025-05-08 17:37 | XMS_ITS | Encounter Summary ---
Author Organization [employer] Address [address] [place] [address] 7t [place] [address] Care Team Providers Care Podiatric Physician Name Role Phone Bharati Soriano MD Primary Care Provider [phone]- [phone] Vasyl Boles MD Unavailable Amador Green MD Unavailable [phone] Babak Sparks MD Unavailable [phone] Aneudy Mchugh Unavailable [phone] Reason for Visit * Reason Comments Med Refill Encounter Details Date Type Department Care Team (Late st Contact Info) Description 10/05/2022 Refill [facility] 230 [place], [place] [phone] Bharati Soriano MD 230 [place], [place] [phone] Wheeze Social History Tobacco Use Types Packs/Day [...] 11:00 AM EST Office Visit [facility] 230 [place] [address] 09/13/2025 1:30 PM EDT Office Visit [facility] ADULT DENTAL 230 [place] [address] Elo Mahoney 230 [place] [address] documented as of this encounter Visit Diagnoses Diagnosis [place] Wheezing documented in this encounter Care Teams Podiatric Physician Relationship Specialty Start Date End Date Bharati Soriano MD 230 [place] [address] PCP - General Family Medicine 06/14/18 Vasyl Boles MD [address] [place] [address] [address] [place] [address] Gastroenterology 06/20/24 [place] [address] [place] [address] Rheumatology 09/18/24 Babak Sparks MD [address] [place] [address] Drive [address] [place] [address] Endocrinology 10/17/24 Aneudy Mchugh [address] [place] [address] [address] Orthopaedic Surgery 03/26/25 documented as of this encounter
--- OUTSIDE RECORDS SUMMARY | 2025-05-08 17:37 | XMS_ITS | Encounter Summary ---
Author Organization [employer] Address 75 [facility] 7t [place] [address] Care Team Providers Care Development Technical Lead Name Role Phone Bharati Soriano MD Primary Care Provider [phone]- [phone] Vasyl Boles MD Unavailable [phone] Amador Green MD Unavailable Babak Sparks MD Unavailable [phone] Aneudy Mchugh Unavailable [phone] Reason for Visit * Reason Comments Med Refill Encounter Details Date Type Department Care Team (Late st Contact Info) Description 07/04/2023 Refill [facility] 230 [place], [place] [phone] Bharati Soriano MD 230 [place], [place] [phone] Acquired hypothyroidism; Dyslipidemia Social History Tobacco Use [...] Visit [facility] 230 [place] [address] 09/13/2025 1:30 PM EDT Office Visit [facility] ADULT DENTAL 230 [place] [address] Denzel, Elo 230 [place] [address] documented as of this encounter Visit Diagnoses Diagnosis Acquired hypothyroidism Unspecified hypothyroidism Dyslipidemia Other and unspecified hyperlipidemia documented in this encounter Additional Health Concerns Assessment Noted Time PHQ-9 Depression Total Score: 0 10/16/19 23 2:27 PM EDT documented as of this encounter Care Teams Development Technical Lead Relationship Specialty Start Date End Date Bharati Soriano MD [address] [place] [address] PCP - General Family Medicine 06/14/18 Vasyl Boles MD [address] [place] [address] Gastroenterology 06/20/24 Amador Green MD [address] [place] [address] Rheumatology 09/18/24 Babak Sparks MD [address] [facility] [address] [place] [address] Endocrinology 10/17/24 Aneudy Mchugh [address] [place] [address] Orthopaedic Surgery 03/26/25 documented as of this encounter
--- OUTSIDE RECORDS SUMMARY | 2025-05-08 17:37 | XMS_ITS | Encounter Summary ---
Demographics Address [address] [place] [address] [address] [place] [address] Home Phone Work Phone Mobile Phone Email Address Preferred Language en Marital Status Single Scientologist Affiliation Unknown Race Other Race Ethnic Group Unknown Author Organization [email or web address] Address [address] [facility] 7t [place] [address] Care Team Providers Care Spanish Literature Professor Name Role Phone Bharati Soriano MD Primary Care Provider [phone]- [phone] Vasyl Boles MD Unavailable Amador Green MD Unavailable Babak Sparks MD Unavailable Aneudy Mchugh Unavailable [phone] Encounter Details Date Type Department Care Team (Late st Contact Info) Description 05/08/2025 Telephone [facility] [address] [place] [address] Jocelyn Randall, RN 505 [place] [address] Social History Tobacco Use Types Packs/Day Years [...] Telephone Encounter - Jocelyn Randall RN - 05/08/2025 11:26 AM EST Fyi. UTOX completed. Positive for FTY, BZO. UTOX Not as expected. Was positive in the past for BZO,FTY and negative when send out to the lab. Sending it out to the lab for confirmation again. documented in this encounter Plan of Treatment Upcoming Encounters Date Type Department Care Team (Late st Contact Info) Description 08/07/2025 11:00 AM EST Office Visit [facility] 230 [place] [address] 09/13/2025 1:30 PM EDT Office Visit [facility] ADULT DENTAL 230 [place] [address] Elo Mahoney 230 [place] [address] documented as of this encounter Visit Diagnoses Not on filedocumented in this encounter Additional Health Concerns Assessment Noted Time PHQ-9 Depression Total Score: 0 12/07/19 11:15 AM EDT documented as of this encounter Care Teams Spanish Literature Professor Relationship Specialty Start Date End Date Bharati Soriano MD 230 [place] [address] PCP - General Family Medicine 06/14/18 Vasyl Boles MD [address] [place] [address] DR [facility] 102 [place] [address] Gastroenterology 06/20/24 [place] [address] [place] [address] Rheumatology 09/18/24 Babak Sparks MD [address] [place] [address] [address] [place] [address] Endocrinology 10/17/24 Aneudy Mchugh [address] [place], [place] [address] [address] Orthopaedic Surgery 03/26/25 documented as of this encounter
--- OUTSIDE RECORDS SUMMARY | 2025-05-08 17:37 | XMS_ITS | Encounter Summary ---
Author Organization [employer] Address 75 [facility] 7t [place] [address] Care Team Providers Care Distribution Analyst Name Role Phone Bharati Soriano MD Primary Care Provider [phone]- [phone] Vasyl Boles MD Unavailable Amador Green MD Unavailable [phone] Babak Sparks MD Unavailable [phone] Aneudy Mchugh Unavailable [phone] Reason for Visit * Reason Comments Med Refill Encounter Details Date Type Department Care Team (Late st Contact Info) Description 07/30/2024 Refill [facility] 230 [place], [place] [phone] Bharati Soriano MD 230 [place], [place] [phone] Gastroesophageal reflux disease without esophagitis Social History [...] Description 08/07/2025 11:00 AM EST Office Visit [facility] [address] [place] [address] 09/13/2025 1:30 PM EDT Office Visit [facility] 230 [place] [address] Elo Mahoney 230 [place] [address] documented as of this encounter Visit Diagnoses Diagnosis Gastroesophageal reflux disease without esophagitis Esophageal reflux documented in this encounter Additional Health Concerns Assessment Noted Time PHQ-9 Depression Total Score: 1 01/14/20 24 10:00 AM EDT documented as of this encounter Care Teams Distribution Analyst Relationship Specialty Start Date End Date Bharati Soriano MD [address] [place] [address] PCP - General Family Medicine 06/14/18 Vasyl Boles MD [address] [place] [address] [place] [address] Gastroenterology 06/20/24 Amador Green MD [address] [place] [address] Rheumatology 09/18/24 Babak Sparks MD [address] [place] [address] Drive [address] [place] [address] Endocrinology 10/17/24 Aneudy Mchugh 300 [place] [address] Orthopaedic Surgery 03/26/25 documented as of this encounter
--- OUTSIDE RECORDS SUMMARY | 2025-05-08 17:37 | XMS_ITS | Encounter Summary ---
Author Organization [employer] Address 75 [facility] 7t [place] [address] Care Team Providers Care Firer Retort Name Role Phone Bharati Soriano MD Primary Care Provider [phone]- [phone] Vasyl Boles MD Unavailable [phone] Amador Green MD Unavailable Babak Sparks MD Unavailable Aneudy Mchugh Unavailable [phone] Encounter Details Date Type Department Care Team (Late st Contact Info) Description 08/01/2024 Orders Only [facility] 230 [place], [place] [phone] Rosi Vergara MD 230 [place], [place] [phone] Primary hypertension; Chronic renal impairment, stage 2 [...] 11:00 AM EST Office Visit [facility] 230 [place] [address] 09/13/2025 1:30 PM EDT Office Visit [facility] ADULT DENTAL 230 [place] [address] Elo Mahoney 230 [place] [address] documented as of this encounter Visit Diagnoses Diagnosis Primary hypertension Unspecified essential hypertension Chronic renal impairment, stage 2 (mild) documented in this encounter Additional Health Concerns Assessment Noted Time PHQ-9 Depression Total Score: 1 01/14/20 24 10:00 AM EDT documented as of this encounter Care Teams Firer Retort Relationship Specialty Start Date End Date Bharati Soriano MD 230 [place] [address] PCP - General Family Medicine 06/14/18 Vasyl Boles MD [address] [place] [address] [place] [address] Gastroenterology 06/20/24 Amador Green MD [address] [place] [address] Rheumatology 09/18/24 Bbaak Sparks MD [address] [place] [address] Drive [address] [place] [address] Endocrinology 10/17/24 Aneudy Mchugh 300 [place] [address] Orthopaedic Surgery 03/26/25 documented as of this encounter
--- OUTSIDE RECORDS SUMMARY | 2025-05-08 17:37 | XMS_ITS | Encounter Summary ---
Author Organization [employer] Address 75 [facility] 7t [place] [address] Care Team Providers Care Pug Mill Operator Helper Name Role Phone Bharati Soriano MD Primary Care Provider [phone]- [phone] Vasyl Boles MD Unavailable [phone] Amador Green MD Unavailable [phone] Babak Sparks MD Unavailable Aneudy Mchugh Unavailable [phone] Reason for Visit * Reason Comments Med Refill Encounter Details Date Type Department Care Team (Late st Contact Info) Description 05/10/2024 Refill [facility] 230 [place], [place] [phone] Bharati Soriano MD 230 [place], [place] [phone] Dyslipidemia; Other osteoporosis without current pathological fracture; [...] the past 12 months, has t he [employer] gas, oil or water company threatened to [...] Description 08/07/2025 11:00 AM EST Office Visit [facility] 230 [place] [address] 09/13/2025 1:30 PM EDT Office Visit [facility] ADULT DENTAL 230 [place] [address] Elo Mahoney 230 [place] [address] documented as of this encounter Visit Diagnoses Diagnosis Dyslipidemia Other and unspecified hyperlipidemia Other osteoporosis without current pathological fracture Mild intermittent asthma, unspecified whether complicated documented in this encounter Additional Health Concerns Assessment Noted Time PHQ-9 Depression Total Score: 1 01/14/20 24 10:00 AM EDT documented as of this encounter Care Teams Pug Mill Operator Helper Relationship Specialty Start Date End Date Bharati Soriano MD [address] [place] [address] PCP - General Family Medicine 06/14/18 Vasyl Boles MD [address] [place] [address] [address] [place] [address] Gastroenterology 06/20/24 Amador Green MD [address] [place] [address] Rheumatology 09/18/24 aBbak Sparks MD [address] [place] [address] Drive [address] [place] [address] Endocrinology 10/17/24 Aneudy Mchugh [address] [place] [address] Orthopaedic Surgery 03/26/25 documented as of this encounter
--- OUTSIDE RECORDS SUMMARY | 2025-05-08 17:37 | XMS_ITS | Encounter Summary ---
Author Organization [employer] Address [address] [place] [address] 7t [place] [address] Care Team Providers Care Hair Boiler Name Role Phone Bharati Soriano MD Primary Care Provider [phone] Vasyl Boles MD Unavailable Amador Green MD Unavailable Babak Sparks MD Unavailable Aneudy Mchugh Unavailable [phone] Encounter Details Date Type Department Care Team (Latest Contact Info) Description 08/23/2019 Abstract [facility] CONVERSIONS Dental, Provider, DDS Social History [...] 08/07/2025 11:00 AM EST Office Visit [facility] MEDICINE 230 [place], [place] [phone] 09/13/2025 1:30 PM EDT Office Visit [facility] ADULT DENTAL 230 [place], [place] [phone] Elo Mahoney 230 [place], [place] [phone] documented as of this encounter Visit Diagnoses Not on filedocumented in this encounter Care Teams Hair Boiler Relationship Specialty Start Date End Date Bharati Soriano MD 230 [place] [address] PCP - General Family Medicine 06/14/18 Vasyl Boles MD [address] [place] [address] [address] [place] [address] Gastroenterology 06/20/24 [place] [address] [place] [address] Rheumatology 09/18/24 Babak Sparks MD [address] [place] [address] [address] [place] [address] Endocrinology 10/17/24 Aneudy Mchugh [address] [facility] [place] [address] Orthopaedic Surgery 03/26/25 documented as of this encounter
--- OUTSIDE RECORDS SUMMARY | 2025-05-08 17:37 | XMS_ITS | Encounter Summary ---
Author Organization [employer] Address [address] [place] [address] 7t [place] [address] Care Team Providers Care Professor Of Chemical Engineering Name Role Phone Bharati Soriano MD Primary Care Provider + [phone] Vasyl Boles MD Unavailable Amador Green MD Unavailable Babak Sparks MD Unavailable Aneudy Mchugh Unavailable [phone] Encounter Details Date Type Department Care [...] 08/07/2025 11:00 AM EST Office Visit [facility] MEDICINE 230 [place], [place] [phone] 09/13/2025 1:30 PM EDT Office Visit [facility] ADULT DENTAL 230 [place], [place] [phone] Elo Mahoney 230 [place], [place] [phone] documented as of this encounter Visit Diagnoses Not on filedocumented in this encounter Care Teams Professor Of Chemical Engineering Relationship Specialty Start Date End Date Bharati Soriano MD 230 [place] [address] PCP - General Family Medicine 06/14/18 Vasyl Boles MD [address] [place] [address] [address] [place] [address] Gastroenterology 06/20/24 [place] [address] [place] [address] Rheumatology 09/18/24 Babak Sparks MD [address] [place] [address] [address] [place] [address] Endocrinology 10/17/24 Aneudy Mchugh 300 [facility] [address] Orthopaedic Surgery 03/26/25 documented as of this encounter
--- OUTSIDE RECORDS SUMMARY | 2025-05-08 17:37 | XMS_ITS | Encounter Summary ---
Author Organization [employer] Address 75 [facility] 7t [place] [address] Care Team Providers Care Machine Clerical Verifier Name Role Phone Bharati Soriano MD Primary Care Provider [phone] Vasyl Boles MD Unavailable Amador Green MD Unavailable Babak Sparks MD Unavailable Aneudy Mchugh Unavailable [phone] Reason for Visit * Reason Onset Date Comments Med Refill 01/31/2025 Encounter Details Date Type Department Care Team (Late st Contact Info) Description 01/31/2025 Telephone [facility] MEDICINE 230 [place], [place] [phone] Bharati Soriano MD 230 [place], [place] [phone] Med Refill Social History Tobacco Use Types [...] 5-325 MG tablet To be sent to: [facility]/pharmacy [address] [place] [address] documented in this encounter Plan of Treatment Upcoming Encounters Date Type Department Care Team (Late st Contact Info) Description 08/07/2025 11:00 AM EST Office Visit [facility] MEDICINE 230 [place], [place] [phone] 09/13/2025 1:30 PM EDT Office Visit [facility] ADULT DENTAL 230 [place] [address] Elo Mahoney 230 [place] [address] documented as of this encounter Visit Diagnoses Not on filedocumented in this encounter Additional Health Concerns Assessment Noted Time PHQ-9 Depression Total Score: 0 12/07/19 11:15 AM EDT documented as of this encounter Care Teams Machine Clerical Verifier Relationship Specialty Start Date End Date Bharati Soriano MD 230 [place] [address] PCP - General Family Medicine 06/14/18 Vasyl Boles MD [address] [place] [address] DR [facility] 102 [place] [address] Gastroenterology 06/20/24 [place] [address] [place] [address] Rheumatology 09/18/24 Baabk Sparks MD [address] [place] [address] Drive [facility] 104 [place] [address] Endocrinology 10/17/24 Aneudy Mchugh [address] [place] [address] Orthopaedic Surgery 03/26/25 documented as of this encounter
--- OUTSIDE RECORDS SUMMARY | 2025-05-08 17:37 | XMS_ITS | Encounter Summary ---
Author Organization [employer] Address [address] 7[address] [place] [address] Care Team Providers Care Wet Roaster Name Role Phone Bharati Soriano MD Primary Care Provider Vasyl Boles MD Unavailable Amador Green MD Unavailable Babak Sparks MD Unavailable [phone] Aneudy Mchugh Unavailable [phone] Encounter Details Date Type Department Care Team (Late st Contact Info) Description 09/29/2023 Orders Only [facility] [address] [place], [place] [phone] Bryon Fuller MD 230 [place], [place] [phone] Social History Tobacco Use Types Packs/Day Years [...] Description 08/07/2025 11:00 AM EST Office Visit [facility] [address] [place] [address] 09/13/2025 1:30 PM EDT Office Visit [facility] ADULT DENTAL 230 [place] [address] Denzel, Elo 230 [place] [address] documented as of this encounter Visit Diagnoses Not on filedocumented in this encounter Additional Health Concerns Assessment Noted Time PHQ-9 Depression Total Score: 0 10/16/19 23 2:27 PM EDT documented as of this encounter Care Teams Wet Roaster Relationship Specialty Start Date End Date Bharati Soriano MD [address] [place] [address] PCP - General Family Medicine 06/14/18 Vasyl Boles MD [address] [place] [phone] Gastroenterology 06/20/24 Amador Green MD [address] [place] [address] Rheumatology 09/18/24 Babak Sparks MD [address] [place] [address] Endocrinology 10/17/24 Aneudy Mchugh [address] [place] [address] Orthopaedic Surgery 03/26/25 documented as of this encounter
--- OUTSIDE RECORDS SUMMARY | 2025-05-08 17:37 | XMS_ITS | Encounter Summary ---
Demographics Address [address] [facility] [address] [place] [address] Home Phone Work Phone Mobile Phone Email Address Preferred Language en Marital Status Single Islam Affiliation Unknown Race Other Race Ethnic Group Unknown Author Organization [employer] Address [address] [facility] 7t [place] [address] Care Team Providers Care Wastewater Design Engineer Name Role Phone Bharati Soriano MD Primary Care Provider [phone] Vasyl Boles MD Unavailable Amador Green MD Unavailable [phone] Babak Sparks MD Unavailable [phone] Aneudy Mchugh Unavailable [phone] Reason for Visit * Reason Onset Date Comments Med Refill 05/04/2025 Encounter Details Date Type Department Care Team (Late st Contact Info) Description 05/04/2025 Refill [facility] [address] [place] [address] Jocelyn Randall, RN [address] [place] [address] Lumbar radiculopathy Social History Tobacco Use Types Packs/Day Years [...] Description 08/07/2025 11:00 AM EST Office Visit [facility] [address] [place] [address] 09/13/2025 1:30 PM EDT Office Visit [facility] ADULT DENTAL [address] [place] [address] Elo Mahoney 230 [place] [address] documented as of this encounter Visit Diagnoses Diagnosis Lumbar radiculopathy Thoracic or lumbosacral neuritis or radiculitis, unspecified documented in this encounter Additional Health Concerns Assessment Noted Time PHQ-9 Depression Total Score: 0 12/07/19 25 11:15 AM EDT documented as of this encounter Care Teams Wastewater Design Engineer Relationship Specialty Start Date End Date Bharati Soriano MD [address] [place] [address] PCP - General Family Medicine 06/14/18 Vasyl Boles MD [address] [place] [address] [address] [place] [address] Gastroenterology 06/20/24 Amador Green MD [address] [place] [address] Rheumatology 09/18/24 Babak Sparks MD [address] [place] [address] Drive [address] [place] [address] Endocrinology 10/17/24 Aneudy Mchugh [address] [place] [address] Orthopaedic Surgery 03/26/25 documented as of this encounter
--- OUTSIDE RECORDS SUMMARY | 2025-05-08 17:37 | XMS_ITS | Encounter Summary ---
Author Organization [employer] Address [address] [facility] 7t [place] [address] Care Team Providers Care Merchandising Consultant Name Role Phone Bharati Soriano MD Primary Care Provider [phone] Vasyl Boles MD Unavailable Amador Green MD Unavailable [phone] Babak Sparks MD Unavailable Aneudy Mchugh Unavailable [phone] Reason for Visit * Reason Onset Date Comments Med Refill 03/31/2024 Encounter Details Date Type Department Care Team (Late st Contact Info) Description 03/31/2024 Telephone [facility] 230 [place], [place] [phone] Bharati Soriano MD 230 [place], [place] [phone] Med Refill Social History Tobacco Use Types [...] 5-325 MG tablet To be sent to: [facility]/pharmacy #[address] [place] [address] - [address] [place] [address] documented in this encounter Plan of Treatment Upcoming Encounters Date Type Department Care Team (Late st Contact Info) Description 08/07/2025 11:00 AM EST Office Visit [facility] 230 [place], [place] [phone] 09/13/2025 1:30 PM EDT Office Visit [facility] ADULT DENTAL 230 [place] [address] Elo Mahoney 230 [place] [address] documented as of this encounter Visit Diagnoses Not on filedocumented in this encounter Additional Health Concerns Assessment Noted Time PHQ-9 Depression Total Score: 1 01/14/20 24 10:00 AM EDT documented as of this encounter Care Teams Merchandising Consultant Relationship Specialty Start Date End Date Bharati Soriano MD 230 [place] [address] PCP - General Family Medicine 06/14/18 Vasyl Boles MD [address] [place] [address] [address] [place] [address] Gastroenterology 06/20/24 [place] [address] [place] [address] Rheumatology 09/18/24 Babak Sparks MD [address] [place] [address] Drive [address] [place] [address] Endocrinology 10/17/24 Aneudy Mchugh [address] [place] [address] Orthopaedic Surgery 03/26/25 documented as of this encounter
--- OUTSIDE RECORDS SUMMARY | 2025-05-08 17:37 | XMS_ITS | Encounter Summary ---
Author Organization [employer] Address [address] [facility] 7t [place] [address] Care Team Providers Care Body Engineer Name Role Phone Bharati Soriano MD Primary Care Provider [phone] Vasyl Boles MD Unavailable [phone] Amador Green MD Unavailable [phone] Babak Sparks MD Unavailable Aneudy Mchugh Unavailable [phone] Reason for Visit * Reason Onset Date Comments Medication Question 03/28/2025 Encounter Details Date Type Department Care Team (Late st Contact Info) Description 03/28/2025 Telephone [facility] 230 [place], [place] [phone] Bharati Soriano MD [address] [place], [place] [phone] Medication Question Social History Tobacco Use Types [...] * Telephone Encounter - Kelechi Loyd - 03/28/2025 3:48 PM EDT Tc from pt requesting a call back to clarify why she received a short script for oxyCODONE-acetaminophen (Percocet) 5-325 MG tablet. Please contact pt at [phone]. documented in this encounter Plan of Treatment Upcoming Encounters Date Type Department Care Team (Late st Contact Info) Description 08/07/2025 11:00 AM EST Office Visit [facility] [address] [place] [address] 09/13/2025 1:30 PM EDT Office Visit [facility] ADULT DENTAL 230 [place] [address] Elo Mahoney 230 [place] [address] documented as of this encounter Visit Diagnoses Not on filedocumented in this encounter Additional Health Concerns Assessment Noted Time PHQ-9 Depression Total Score: 0 06/25/20 25 11:15 AM EDT documented as of this encounter Care Teams Body Engineer Relationship Specialty Start Date End Date Bharati Soriano MD [address] [place] [address] PCP - General Family Medicine 06/14/18 Vasyl Boles MD [address] [place] [address] [address] [place] [phone] Gastroenterology 06/20/24 Amador Green MD [address] [place] [phone] Rheumatology 09/18/24 Babak Sparks MD [address] [place] [address] Drive [address] [place] [address] Endocrinology 10/17/24 Aneudy Mchugh [address] [place], [place] [address] [address] Orthopaedic Surgery 03/26/25 documented as of this encounter
--- OUTSIDE RECORDS SUMMARY | 2025-05-08 17:37 | XMS_ITS | Encounter Summary ---
Author Organization [employer] Address [address] [facility] 7t [place] [address] Care Team Providers Care Advisory Software Engineer Name Role Phone Bharati Soriano MD Primary Care Provider [phone] Vasyl Boles MD Unavailable Amador Green MD Unavailable Babak Sparks MD Unavailable Aneudy Mchugh Unavailable [phone] Encounter Details Date Type Department Care Team (Late st Contact Info) Description 09/29/2023 Abstract [facility] [address] [place], [place] [phone] Bharati Soriano MD 230 [place], [place] [phone] Social History Tobacco Use Types Packs/Day Years [...] Description 08/07/2025 11:00 AM EST Office Visit [facility] [address] [place] [address] 09/13/2025 1:30 PM EDT Office Visit [facility] ADULT DENTAL [address] [place] [address] Al Mahoneyaris 230 [place] [address] documented as of this encounter Procedures Procedure [...] documented as of this encounter Care Teams Advisory Software Engineer Relationship Specialty Start Date End Date Bharati Soriano MD [address] [place] [address] PCP - General Family Medicine 06/14/18 Vasyl Boles MD [address] [place] [address] [address] [place] [address] Gastroenterology 06/20/24 Amador Green MD [address] [place] [address] Rheumatology 09/18/24 Babak Sparks MD [address] [place] [address] [address] [place] [address] Endocrinology 10/17/24 Aneudy Mchugh [address] [place] [address] Orthopaedic Surgery 03/26/25 documented as of this encounter
--- OUTSIDE RECORDS SUMMARY | 2025-05-08 17:37 | XMS_ITS | Encounter Summary ---
Author Organization [employer] Address [address] [place] [address] 7t [place] [address] Care Team Providers Care Spot Remover Name Role Phone Bharati Soriano MD Primary Care Provider [phone] Vasyl Boles MD Unavailable Amador Green MD Unavailable Babak Sparks MD Unavailable Aneudy Mchugh Unavailable [phone] Encounter Details Date Type Department Care Team (Late st Contact Info) Description 10/12/2022 Abstract [facility] MED[facility] [address] [place], [place] [phone] Bharati Soriano MD [address] [place], [place] [phone] Social History Tobacco Use Types Packs/Day Years [...] things Not at all 10/15/2022 2:27 PM EDT Isaura Goode [place] Feeling down, depressed, or hopeless Not at all 10/15/2022 2:27 PM EDT Isaura Goode [place] Trouble falling or staying asleep, or sleeping too much Not at all 10/15/2022 2:27 PM EDT Randolph Goode [place] Feeling tired or having carlota le energy Not at all 10/15/2022 2:27 PM EDT Isaura Goode [place] Poor appetite or overeating [...] 08/07/2025 11:00 AM EST Office Visit [facility] [address] [place] [address] 09/13/2025 1:30 PM EDT Office Visit [facility] ADULT DENTAL [address] [place] [address] Elo Mahoney [address] [place] [address] documented as of this encounter Visit Diagnoses Not on filedocumented in this encounter Care Teams Spot Remover Relationship Specialty Start Date End Date Bharati Soriano MD [address] [place] [address] PCP - General Family Medicine 06/14/18 Vasyl Boles MD [address] [place] [address] DR [facility] [address] [place] [address] Gastroenterology 06/20/24 Amador Green MD [address] [place] [phone] Rheumatology 09/18/24 Babak Sparks MD [address] [place] [address] Drive [address] [place] [address] Endocrinology 10/17/24 Aneudy Mchugh [address] [place], [place] [address] [address] Orthopaedic Surgery 03/26/25 documented as of this encounter
== END 2025-05-08 10:56 | disposition home or self-care (01) ==
LOC: HO.HHCLNP 10:55
PROVIDERS: Visit Provider Registered Nurse
DX: Z51.81 Encounter for therapeutic drug level monitoring (principal); M54.50 Low back pain, unspecified; G89.29 Other chronic pain
CPT/HCPCS: 80346; 80354